=== PATIENT | female | born 1990 | race Caucasian/White ===

== ENCOUNTER → 2016-06-14 | Outpatient (REF) | payer MEDICARE, MEDICAID ==
[~2016-06-14] MED LIST: /QUET10TA OR; /RISPSOL3 OR; /THIA10TA OR; ABIL1TAB5 PO; ABIL5TAB5 PO; BEN1.4DI EX; BUPR15TA PO; CETI10TA PO; COGE1INJ PO; COLA100C2 OR; DEPA1TAB3 PO; DEPA250T32 PO; DEPA500T2 OR; FLON0.054; FOLI1TAB OR; IBUP-1114 PO; KLON0.5T PO; LATU40TA PO; MULTIVIT PO; No Historical Meds; PRIL20CA OR; PRIL40CA PO; SERO200T OR; VALP25EL OR
[2016-06-14 17:11] LABS: ALBUMIN 3.9 GM/DL (3.2-5.2); ALBUMIN/GLOBULIN RATIO 1.18 (1.00-1.93); ALKALINE PHOSPHATASE 81 U/L (45-117); ALT/SGPT 20 U/L (12-78); ANION GAP 7 MEQ/L (8-16); AST/SGOT 12 U/L (15-37); BILIRUBIN,TOTAL 0.4 MG/DL (0.2-1.0); BLOOD UREA NITROGEN 6 MG/DL (7-18); CALCIUM LEVEL 9.2 MG/DL (8.5-10.1); CARBON DIOXIDE LEVEL 29 MEQ/L (21-32); CHLORIDE LEVEL 103 MEQ/L (98-107); CREATININE FOR GFR 0.77 MG/DL (0.55-1.02); GLOMERULAR FILTRATION RATE > 60.0 (>60); GLUCOSE, FASTING 56 MG/DL (70-105); SODIUM LEVEL 139 MEQ/L (136-145); TOTAL PROTEIN 7.2 GM/DL (6.4-8.2)
== END ==
LOC: M SFHCCLAY 10:56
PROVIDERS: ATTEND Family Medicine
DX: E87.6 Hypokalemia (principal)

== ENCOUNTER 2016-07-20 20:27 | Emergency (ER) | payer MEDICAID, MEDICARE ==
[2016-07-20 23:38] LABS: MEAN CORPUSCULAR HEMOGLOBIN 30.9 pg (27.0-33.0); MEAN CORPUSCULAR HGB CONC 32.9 g/dl (32.0-36.5); RED CELL DISTRIBUTION WIDTH 12.7 % (11.5-14.5); WHITE BLOOD COUNT 11.9 K/mm3 (4.0-10.0)
[2016-07-20 23:51] LABS: CONTROL LINE HCG INT CTR LINE PRESENT
[2016-07-20 23:53] LABS: AMPHETAMINES LEVEL URINE POSITIVE (NEGATIVE); BENZODIAZEPINES URINE NEGATIVE (NEGATIVE); COCAINE METABOLITE URINE NEGATIVE (NEGATIVE); CONTROL LINE INT CTR LINE PRESENT; METHADONE URINE NEGATIVE (NEGATIVE); OPIATES URINE NEGATIVE (NEGATIVE); TRICYCLIC ANTIDEPRESS URINE NEGATIVE (NEGATIVE)
[2016-07-21 00:05] LABS: ALBUMIN 4.7 GM/DL (3.2-5.2); ALBUMIN/GLOBULIN RATIO 1.15 (1.00-1.93); ALKALINE PHOSPHATASE 110 U/L (45-117); ALT/SGPT 25 U/L (12-78); ANION GAP 9 MEQ/L (8-16); AST/SGOT 15 U/L (15-37); BILIRUBIN,DIRECT 0.1 MG/DL (0.0-0.2); BILIRUBIN,TOTAL 0.4 MG/DL (0.2-1.0); BLOOD UREA NITROGEN 8 MG/DL (7-18); CALCIUM LEVEL 9.4 MG/DL (8.5-10.1); CARBON DIOXIDE LEVEL 25 MEQ/L (21-32); CHLORIDE LEVEL 105 MEQ/L (98-107); CREATININE FOR GFR 0.93 MG/DL (0.55-1.02); GLOMERULAR FILTRATION RATE > 60.0 (>60); GLUCOSE, FASTING 75 MG/DL (70-105); POTASSIUM SERUM 3.8 MEQ/L (3.5-5.1); SODIUM LEVEL 139 MEQ/L (136-145); TOTAL PROTEIN 8.8 GM/DL (6.4-8.2)
[2016-07-21] MEDS ORDERED: lamoTRIgine 25 MG TAB As Ordered ONE (10:48)
[2016-07-21] MEDS ORDERED: OMEPRAZOLE 20 MG CAP As Ordered ONE (10:48)
[2016-07-21] MEDS ORDERED: buPROPion (WELLBUTRIN SR) 100 MG SR TAB PO ONE (11:00)
[2016-07-21] MEDS ORDERED: buPROPion **SR TABLET** (ZYBAN) 150MG PO ONE (11:00)
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
--- NOTE | 2016-07-21 14:17 | EDDOCDS ---
Physician Documentation [facility] Name: Soraya Jane Age: 25 yrs Sex: Female : 1990 Arrival Date: 07/20/2016 Time: 20:27 Bed OBSERVATION Private MD: Chris Suazo D Disposition: 07/21/16 11:11 Transfer ordered to [facility]. Diagnosis is Adjustment disorder with depressed mood. - Reason for transfer: Higher level of care. - Accepting physician is Dr. Abimael Marrero. - Condition is Stable. - Problem is chronic. - Symptoms are unchanged. Historical: - Allergies: no known allergies; - Home Meds: 1. Wellbutrin SR 150 mg Oral TbER 1 tab once daily 2. Wellbutrin SR 200 mg Oral TbER 1 tab daily 3. lamotrigine 100 mg Oral TbDL 1 tab once daily 4. Atarax 25 mg Oral tab 1 tab 1-2 as needed 5. Ativan Oral Unknown as needed (Last dose: 07/20/2016 20:30) 6. omeprazole 40 mg Oral cpDR 1 cap once daily - PMHx: GERD; PTSD; Bipolar disorder; - PSHx: back surgery; - Social history: Smoking status: Patient states was never smoker of tobacco. No barriers to communication noted, The patient speaks fluent Georgian, Speaks appropriately for age. - Family history: Not pertinent. - : The pt / caregiver states he / she is not on anticoagulants. Home medication list is obtained from the patient. - Exposure Risk Screening:: None identified. HOOKER MACHINE TENDER: 07/20 20:43 LMP 07/01/2016 ld5 Vital Signs: 20:36 BP 149 / 94; Pulse 90; Resp 18 S; Temp 98.5(O); Pulse Ox 100% on R/A; Weight 63.96 kg / gr2 141.01 lbs (R); Height 5 ft. 4 in. (162.56 cm) (R); Pain 2/10; 07/21 05:51 BP 126 / 82; Pulse 83; Resp 16; Temp 98.2(TE); Pulse Ox 99% on R/A; Pain 0/10; rw1 14:13 BP 144 / 81; Pulse 82; Resp 20; Temp 98.7(O); Pulse Ox 100% on R/A; Pain 3/10; dsf 07/20 20:36 Body Mass Index 24.20 (63.96 kg, 162.56 cm) gr2 MDM: 07/20 21:38 Financial registration complete. gjb 21:39 [facility] Payment Agreement was scanned into [employer] and attached to record. gjb 22:25 Consult PFS/PSA/Weathercaster ordered. le 22:25 Consult PFS/PSA/Weathercaster: Patient's case requires discussion with on-call le Psychiatrist ordered. 22:25 PSA/PFS to call Nursing Nuclear Medicine Tech, to enter patient data [place] if patient le involuntarily admitted or transferred for SI or HI ordered. 22:25 Confirm accurate psychiatric medication list and times of last dosage ordered. le 22:25 Detain Pt Until Medically/PFS Cleared ordered. le 22:26 Acetaminophen Level Ordered. EDMS 22:26 Basic Metabolic Profile Ordered. EDMS 22:26 Complete Blood Count Ordered. EDMS 22:26 Drug Eval Toxicology ED Only Ordered. EDMS 22:26 Ethyl Alcohol (ethanol) Ordered. EDMS 22:26 HCG,Serum Qualitative Ordered. EDMS 22:26 Liver Profile Ordered. EDMS 22:26 Salicylate Level Ordered. EDMS 22:26 Thyroid Stimulating Hormone Ordered. EDMS 07/21 00:44 Consult PFS/PSA/Weathercaster complete. jfb 00:44 Consult PFS/PSA/Weathercaster: Patient's case requires discussion with on-call [facility] Psychiatrist complete. 00:44 PSA/PFS to call Nursing Nuclear Medicine Tech, to enter [place] data [place] if patient jfb involuntarily admitted or transferred for SI or HI complete. 01:04 Acetaminophen Level Reviewed. mm11 01:04 Complete Blood Count Reviewed. mm11 01:04 Drug Eval Toxicology ED Only Reviewed. mm11 01:04 Liver Profile Reviewed. mm11 01:04 Salicylate Level Reviewed. mm11 01:04 Basic Metabolic Profile Reviewed. mm11 01:04 Ethyl Alcohol (ethanol) Reviewed. mm11 01:04 HCG,Serum Qualitative Reviewed. mm11 01:04 Thyroid Stimulating Hormone Reviewed. mm11 04:18 REGULAR DIET PLASTIC MARQUEZ+DIET ordered. EDMS 10:43 lamoTRIgine 100 mg PO once ordered. dsf 10:43 omeprazole Delayed Release Capsule 40 mg PO once; swallow whole (do not crush or chew) dsf OR open capsule, sprinkle contents over tablespoonful applesauce; swallow all immediately/do not chew pellets ordered. 10:46 buPROPion 200 mg PO once ordered. dsf 10:46 buPROPion 150 mg PO once ordered. dsf 12:57 REGULAR DIET PLASTIC MARQUEZ+DIET ordered. EDMS 14:11 [facility] Legal paperwork was scanned into [employer] and attached to record. mb10 Administered Medications: 10:53 Drug: lamoTRIgine 100 mg [lamotrigine 25 mg tablet (4 tabs)] Route: PO; dsf 10:53 Drug: omeprazole 40 mg [omeprazole 20 mg capsule,delayed release (2 caps)] Route: PO; dsf 11:08 Drug: buPROPion 200 mg [bupropion HCl 100 mg tablet (2 tabs)] Route: PO; dsf 11:08 Drug: buPROPion 150 mg [bupropion HCl 75 mg tablet (2 tabs)] Route: PO; dsf Signatures: Dispatcher What's More Alive Than You EDMS Jemal Sahni, DO mm11 Marisol Ivy, COUNCIL MEMBER Chiqui Jensen, PSA PSA jfb Yamile Emmanuel,RN RN temo5 Anjelica Fox,RN RN dsf Nehal Kaiser MD MD fg Beck, Gabriela gjb Beagle, Melissa mb10 The chart was reviewed and I authenticate all verbal orders and agree with the evaluation and treatment provided.Attachments: 07/20 21:39 [facility] Payment Agreement shelley MTDJorge
--- NOTE | 2016-07-23 15:17 | EDDOCDS ---
Physician Documentation [facility] Name: Soraya Jane Age: 25 yrs Sex: Female : 1990 Arrival Date: 07/20/2016 Time: 20:27 Bed OBSERVATION Private MD: Chris Suazo D Disposition: 07/21/16 11:11 Transfer ordered to [facility]. Diagnosis is Adjustment disorder with depressed mood. - Reason for transfer: Higher level of care. - Accepting physician is Dr. Abimael Marrero. - Condition is Stable. - Problem is chronic. - Symptoms are unchanged. Historical: - Allergies: no known allergies; - Home Meds: 1. Wellbutrin SR 150 mg Oral TbER 1 tab once daily 2. Wellbutrin SR 200 mg Oral TbER 1 tab daily 3. lamotrigine 100 mg Oral TbDL 1 tab once daily 4. Atarax 25 mg Oral tab 1 tab 1-2 as needed 5. Ativan Oral Unknown as needed (Last dose: 07/20/2016 20:30) 6. omeprazole 40 mg Oral cpDR 1 cap once daily - PMHx: GERD; PTSD; Bipolar disorder; - PSHx: back surgery; - Social history: Smoking status: Patient states was never smoker of tobacco. No barriers to communication noted, The patient speaks fluent Spanish, Speaks appropriately for age. - Family history: Not pertinent. - : The pt / caregiver states he / she is not on anticoagulants. Home medication list is obtained from the patient. - Exposure Risk Screening:: None identified. DIGITAL PUBLISHING SPECIALIST: 07/20 20:43 LMP 07/01/2016 ld5 Vital Signs: 20:36 BP 149 / 94; Pulse 90; Resp 18 S; Temp 98.5(O); Pulse Ox 100% on R/A; Weight 63.96 kg / gr2 141.01 lbs (R); Height 5 ft. 4 in. (162.56 cm) (R); Pain 2/10; 07/21 05:51 BP 126 / 82; Pulse 83; Resp 16; Temp 98.2(TE); Pulse Ox 99% on R/A; Pain 0/10; rw1 14:13 BP 144 / 81; Pulse 82; Resp 20; Temp 98.7(O); Pulse Ox 100% on R/A; Pain 3/10; dsf 07/20 20:36 Body Mass Index 24.20 (63.96 kg, 162.56 cm) gr2 MDM: 07/20 21:38 Financial registration complete. gjb 21:39 [facility] Payment Agreement was scanned into [employer] and attached to record. gjb 22:25 Consult PFS/PSA/General Labor ordered. le 22:25 Consult PFS/PSA/General Labor: Patient's case requires discussion with on-call le Psychiatrist ordered. 22:25 PSA/PFS to call Nursing It Professional, to enter [place] data [place] if patient le involuntarily admitted or transferred for SI or HI ordered. 22:25 Confirm accurate psychiatric medication list and times of last dosage ordered. le 22:25 Detain Pt Until Medically/PFS Cleared ordered. le 22:26 Acetaminophen Level Ordered. EDMS 22:26 Basic Metabolic Profile Ordered. EDMS 22:26 Complete Blood Count Ordered. EDMS 22:26 Drug Eval Toxicology ED Only Ordered. EDMS 22:26 Ethyl Alcohol (ethanol) Ordered. EDMS 22:26 HCG,Serum Qualitative Ordered. EDMS 22:26 Liver Profile Ordered. EDMS 22:26 Salicylate Level Ordered. EDMS 22:26 Thyroid Stimulating Hormone Ordered. EDMS 07/21 00:44 Consult PFS/PSA/General Labor complete. jfb 00:44 Consult PFS/PSA/General Labor: Patient's case requires discussion with on-call [facility] Psychiatrist complete. 00:44 PSA/PFS to call Nursing It Professional, to enter [place] if patient jfb involuntarily admitted or transferred for SI or HI complete. 01:04 Acetaminophen Level Reviewed. mm11 01:04 Complete Blood Count Reviewed. mm11 01:04 Drug Eval Toxicology ED Only Reviewed. mm11 01:04 Liver Profile Reviewed. mm11 01:04 Salicylate Level Reviewed. mm11 01:04 Basic Metabolic Profile Reviewed. mm11 01:04 Ethyl Alcohol (ethanol) Reviewed. mm11 01:04 HCG,Serum Qualitative Reviewed. mm11 01:04 Thyroid Stimulating Hormone Reviewed. mm11 04:18 REGULAR DIET PLASTIC MARQUEZ+DIET ordered. EDMS 10:43 lamoTRIgine 100 mg PO once ordered. dsf 10:43 omeprazole Delayed Release Capsule 40 mg PO once; swallow whole (do not crush or chew) dsf OR open capsule, sprinkle contents over tablespoonful applesauce; swallow all immediately/do not chew pellets ordered. 10:46 buPROPion 200 mg PO once ordered. dsf 10:46 buPROPion 150 mg PO once ordered. dsf 12:57 REGULAR DIET PLASTIC MARQUEZ+DIET ordered. EDMS 14:11 [facility] Legal paperwork was scanned into [employer] and attached to record. mb10 17:31 T-Sheet-- Draft Copy was scanned into [employer] and attached to record. klr Administered Medications: 10:53 Drug: lamoTRIgine 100 mg [lamotrigine 25 mg tablet (4 tabs)] Route: PO; dsf 10:53 Drug: omeprazole 40 mg [omeprazole 20 mg capsule,delayed release (2 caps)] Route: PO; dsf 11:08 Drug: buPROPion 200 mg [bupropion HCl 100 mg tablet (2 tabs)] Route: PO; dsf 11:08 Drug: buPROPion 150 mg [bupropion HCl 75 mg tablet (2 tabs)] Route: PO; dsf Signatures: Dispatcher [employer]Ceres EDMS Jemal Sahni, DO mm11 Marisol Ivy, BOILER ASSISTANT OPERATOR BOILER ASSISTANT OPERATORChiqui Kelly, PSA PSA sulemab Yamile Emmanuel RN RN Anjelica Garcias RN RN dsf Nehal Kaiser MD MD fg Beck, Gabriela gjb Beagle, Melissa mb10 Nikia Jacobsonr The chart was reviewed and I authenticate all verbal orders and agree with the evaluation and treatment provided.Attachments: 07/20 21:39 [facility] Payment Agreement [facility] 17:31 T-Sheet-- Draft Copy klr Chart [facility]
--- NOTE | 2016-07-23 15:17 | EDDOCDS ---
Physician Documentation [facility] Name: Soraya Jane Age: 25 yrs Sex: Female : 1990 Arrival Date: 07/20/2016 Time: 20:27 Bed OBSERVATION Private MD: Chris Suazo D Disposition: 07/21/16 11:11 Transfer ordered to [facility]. Diagnosis is Adjustment disorder with depressed mood. - Reason for transfer: Higher level of care. - Accepting physician is Dr. Abimael Marrero. - Condition is Stable. - Problem is chronic. - Symptoms are unchanged. Historical: - Allergies: no known allergies; - Home Meds: 1. Wellbutrin SR 150 mg Oral TbER 1 tab once daily 2. Wellbutrin SR 200 mg Oral TbER 1 tab daily 3. lamotrigine 100 mg Oral TbDL 1 tab once daily 4. Atarax 25 mg Oral tab 1 tab 1-2 as needed 5. Ativan Oral Unknown as needed (Last dose: 07/20/2016 20:30) 6. omeprazole 40 mg Oral cpDR 1 cap once daily - PMHx: GERD; PTSD; Bipolar disorder; - PSHx: back surgery; - Social history: Smoking status: Patient states was never smoker of tobacco. No barriers to communication noted, The patient speaks fluent German, Speaks appropriately for age. - Family history: Not pertinent. - : The pt / caregiver states he / she is not on anticoagulants. Home medication list is obtained from the patient. - Exposure Risk Screening:: None identified. 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 4 in. (162.56 cm) (R); Pain 2/10; 07/21 05:51 BP 126 / 82; Pulse 83; Resp 16; Temp 98.2(TE); Pulse Ox 99% on R/A; Pain 0/10; rw1 14:13 BP 144 / 81; Pulse 82; Resp 20; Temp 98.7(O); Pulse Ox 100% on R/A; Pain 3/10; dsf 07/20 20:36 Body Mass Index 24.20 (63.96 kg, 162.56 cm) gr2 MDM: 07/20 21:38 Financial registration complete. gjb 21:39 [facility] Payment Agreement was scanned into [employer] and attached to record. gjb 22:25 Consult PFS/PSA/Catering Driver ordered. le 22:25 Consult PFS/PSA/Catering Driver: Patient's case requires discussion with on-call le Psychiatrist ordered. 22:25 PSA/PFS to call Nursing Lace Roller Operator, to enter [place] data [place] if patient le involuntarily admitted or transferred for SI or HI ordered. 22:25 Confirm accurate psychiatric medication list and times of last dosage ordered. le 22:25 Detain Pt Until Medically/PFS Cleared ordered. le 22:26 Acetaminophen Level Ordered. EDMS 22:26 Basic Metabolic Profile Ordered. EDMS 22:26 Complete Blood Count Ordered. EDMS 22:26 Drug Eval Toxicology ED Only Ordered. EDMS 22:26 Ethyl Alcohol (ethanol) Ordered. EDMS 22:26 HCG,Serum Qualitative Ordered. EDMS 22:26 Liver Profile Ordered. EDMS 22:26 Salicylate Level Ordered. EDMS 22:26 Thyroid Stimulating Hormone Ordered. EDMS 07/21 00:44 Consult PFS/PSA/Catering Driver complete. jfb 00:44 Consult PFS/PSA/Catering Driver: Patient's case requires discussion with on-call [facility] Psychiatrist complete. 00:44 PSA/PFS to call Nursing Lace Roller Operator, to enter [place] if patient jfb involuntarily admitted or transferred for SI or HI complete. 01:04 Acetaminophen Level Reviewed. mm11 01:04 Complete Blood Count Reviewed. mm11 01:04 Drug Eval Toxicology ED Only Reviewed. mm11 01:04 Liver Profile Reviewed. mm11 01:04 Salicylate Level Reviewed. mm11 01:04 Basic Metabolic Profile Reviewed. mm11 01:04 Ethyl Alcohol (ethanol) Reviewed. mm11 01:04 HCG,Serum Qualitative Reviewed. mm11 01:04 Thyroid Stimulating Hormone Reviewed. mm11 04:18 REGULAR DIET PLASTIC MARQUEZ+DIET ordered. EDMS 10:43 lamoTRIgine 100 mg PO once ordered. dsf 10:43 omeprazole Delayed Release Capsule 40 mg PO once; swallow whole (do not crush or chew) dsf OR open capsule, sprinkle contents over tablespoonful applesauce; swallow all immediately/do not chew pellets ordered. 10:46 buPROPion 200 mg PO once ordered. dsf 10:46 buPROPion 150 mg PO once ordered. dsf 12:57 REGULAR DIET PLASTIC MARQUEZ+DIET ordered. EDMS 14:11 [facility] Legal paperwork was scanned into [employer] and attached to record. mb10 17:31 T-Sheet-- Draft Copy was scanned into [employer] and attached to record. klr Administered Medications: 10:53 Drug: lamoTRIgine 100 mg [lamotrigine 25 mg tablet (4 tabs)] Route: PO; dsf 10:53 Drug: omeprazole 40 mg [omeprazole 20 mg capsule,delayed release (2 caps)] Route: PO; dsf 11:08 Drug: buPROPion 200 mg [bupropion HCl 100 mg tablet (2 tabs)] Route: PO; dsf 11:08 Drug: buPROPion 150 mg [bupropion HCl 75 mg tablet (2 tabs)] Route: PO; dsf Signatures: Dispatcher [facility] EDMS Jemal Sahni, DO mm11 Marisol Ivy, FLASH DESIGNER FLASH DESIGNERChiqui Kelly, PSA PSA sulemab Yamile Emmanuel RN RN Anjelica Garcias RN RN dsf Nehal Kaiser MD MD fg Beck, Gabriela gjb Beagle, Melissa mb10 Nikia Jacobsonr The chart was reviewed and I authenticate all verbal orders and agree with the evaluation and treatment provided.Attachments: 07/20 21:39 [facility] Payment Agreement [facility] 17:31 T-Sheet-- Draft Copy klr Chart [facility]
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
== END 2016-07-21 14:16 ==
LOC: M ED 20:27
DX: F32.9 Major depressive disorder, single episode, unspecified (principal); F43.10 Post-traumatic stress disorder, unspecified; K21.9 Gastro-esophageal reflux disease without esophagitis; F19.21 Other psychoactive substance dependence, in remission
CPT/HCPCS: 36415; 80048; 80076; 80306; 84443; 84703; 85027; 99285; G0480

== ENCOUNTER 2016-08-15 17:51 | Emergency (ER) | payer MEDICARE ==
[~2016-08-15] VITALS: Ht 162.6 cm; Wt 64.0 kg
[2016-08-15 17:52] VITALS: BP 146/84
[2016-08-15] MEDS ORDERED: HYDR25T PO (18:11)
[2016-08-15] MEDS ORDERED: LAMO100T PO (18:11)
[2016-08-15] MEDS ORDERED: MONT10TA2 PO (18:11)
[2016-08-15] MEDS ORDERED: LITH300C PO (18:11)
[2016-08-15] MEDS ORDERED: POTA10TA2 (18:11)
[2016-08-15] MEDS ORDERED: BUPR1TAB17 PO (18:11)
[2016-08-15] MEDS ORDERED: VITA500T53 PO (18:11)
[2016-08-15] MEDS ORDERED: COLA100C PO (18:11)
[2016-08-15] MEDS ORDERED: OLAN15TA PO (18:11)
[2016-08-15 19:19] LABS: MEAN CORPUSCULAR HGB CONC 32.9 g/dl (32.0-36.5); MEAN CORPUSCULAR VOLUME 94.1 fl (80.0-96.0); RED CELL DISTRIBUTION WIDTH 12.2 % (11.5-14.5); WHITE BLOOD COUNT 9.4 K/mm3 (4.0-10.0)
[2016-08-15 19:21] LABS: CONTROL LINE HCG INT CTR LINE PRESENT
[2016-08-15 19:24] LABS: METHADONE URINE NEGATIVE (NEGATIVE)
[2016-08-15 19:40] LABS: ALBUMIN 4.1 GM/DL (3.2-5.2); ALBUMIN/GLOBULIN RATIO 1.14 (1.00-1.93); ALKALINE PHOSPHATASE 145 U/L (45-117); ALT/SGPT 79 U/L (12-78); ANION GAP 9 MEQ/L (8-16); AST/SGOT 46 U/L (15-37); BILIRUBIN,DIRECT < 0.1 MG/DL (0.0-0.2); BILIRUBIN,TOTAL 0.2 MG/DL (0.2-1.0); BLOOD UREA NITROGEN 14 MG/DL (7-18); CALCIUM LEVEL 9.7 MG/DL (8.5-10.1); CARBON DIOXIDE LEVEL 26 MEQ/L (21-32); CHLORIDE LEVEL 106 MEQ/L (98-107); CREATININE FOR GFR 1.06 MG/DL (0.55-1.02); GLOMERULAR FILTRATION RATE > 60.0 (>60); GLUCOSE, FASTING 98 MG/DL (70-105); POTASSIUM SERUM 4.2 MEQ/L (3.5-5.1); SODIUM LEVEL 141 MEQ/L (136-145); TOTAL PROTEIN 7.7 GM/DL (6.4-8.2)
[2016-08-15 19:44] LABS: LITHIUM LEVEL 0.38 MEQ/L (0.60-1.20)
[2016-08-16] MEDS ORDERED: FLUTISP (23:12)
[2016-08-16] MEDS ORDERED: OLAN7.5T PO (23:18)
[2016-08-16] MEDS ORDERED: HYDR-4274 PO (23:18)
[2016-08-16] MEDS ORDERED: OMEP20CA3 PO (23:20)
[2016-08-16] MEDS ORDERED: POTA10CA PO (23:20)
[2016-08-16] MEDS ORDERED: [UNRECOGNIZED DRUG - CODE] MT (23:26)
[2016-08-16] MEDS ORDERED: REFR0.5D8 OU (23:26)
== END 2016-08-15 20:20 | disposition home or self-care (01) ==
LOC: M ED 19:11
DX: F31.9 Bipolar disorder, unspecified (principal)

== ENCOUNTER 2016-08-16 19:45 | Inpatient (IN) | payer MEDICARE ==
[~2016-08-16] VITALS: Ht 162.6 cm; Wt 68.8 kg
[~2016-08-16 19:45] MED LIST changes: +BUPR1TAB17 PO; +COLA100C PO; +HYDR25T PO; +LAMO100T PO; +LITH300C PO; +MONT10TA2 PO; +OLAN15TA PO; +POTA10TA2; +VITA500T53 PO
[2016-08-16 21:07] LABS: MEAN CORPUSCULAR HEMOGLOBIN 31.4 pg (27.0-33.0); MEAN CORPUSCULAR HGB CONC 33.1 g/dl (32.0-36.5); MEAN CORPUSCULAR VOLUME 94.8 fl (80.0-96.0); RED CELL DISTRIBUTION WIDTH 12.4 % (11.5-14.5)
[2016-08-16 21:25] LABS: CONTROL LINE HCG INT CTR LINE PRESENT
[2016-08-16 21:31] LABS: METHADONE URINE NEGATIVE (NEGATIVE)
[2016-08-16 21:41] LABS: ALBUMIN 4.1 GM/DL (3.2-5.2); ALBUMIN/GLOBULIN RATIO 1.17 (1.00-1.93); ALKALINE PHOSPHATASE 137 U/L (45-117); ALT/SGPT 80 U/L (12-78); ANION GAP 7 MEQ/L (8-16); AST/SGOT 36 U/L (15-37); BILIRUBIN,DIRECT < 0.1 MG/DL (0.0-0.2); BILIRUBIN,TOTAL 0.3 MG/DL (0.2-1.0); BLOOD UREA NITROGEN 12 MG/DL (7-18); CALCIUM LEVEL 9.4 MG/DL (8.5-10.1); CARBON DIOXIDE LEVEL 29 MEQ/L (21-32); CHLORIDE LEVEL 106 MEQ/L (98-107); CREATININE FOR GFR 0.91 MG/DL (0.55-1.02); GLOMERULAR FILTRATION RATE > 60.0 (>60); GLUCOSE, FASTING 90 MG/DL (70-105); POTASSIUM SERUM 4.1 MEQ/L (3.5-5.1); SODIUM LEVEL 142 MEQ/L (136-145); TOTAL PROTEIN 7.6 GM/DL (6.4-8.2)
[2016-08-16 21:45] LABS: LITHIUM LEVEL 0.39 MEQ/L (0.60-1.20)
[2016-08-16] MEDS ORDERED: MAALOX 30 ML SUSP *UDC PO PRN (22:15)
[2016-08-16] MEDS ORDERED: MOM 30ML SUSPENSION UDC PO PRN (22:15)
[2016-08-16] MEDS ORDERED: FLUTISP (23:12)
[2016-08-16] MEDS ORDERED: HYDR-4274 PO (23:18)
[2016-08-16] MEDS ORDERED: OLAN7.5T PO (23:18)
[2016-08-16 23:20] VITALS: BP 112/58
[2016-08-16] MEDS ORDERED: POTA10CA PO (23:20)
[2016-08-16] MEDS ORDERED: OMEP20CA3 PO (23:20)
[2016-08-16] MEDS ORDERED: REFR0.5D8 OU (23:26)
[2016-08-16] MEDS ORDERED: [UNRECOGNIZED DRUG - CODE] MT (23:26)
[2016-08-17] MEDS: LORazepam 1 MG TAB PO PRN ×2 (01:07→14:09)
[2016-08-17 06:45] VITALS: BP 132/64
[2016-08-17] MEDS: NICOTINE 7 MG/24 HR TRANSDERMAL TD SCH (09:21)
[2016-08-17] MEDS ORDERED: HYDR25T PO (11:04)
[2016-08-17] MEDS ORDERED: ATIV1TAB7 PO (11:04)
[2016-08-17] MEDS ORDERED: POTA10TA16 PO (11:04)
[2016-08-17] MEDS: HALOPERIDOL 5 MG TAB PO PRN (12:00)
[2016-08-17] MEDS: diphenhydrAMINE 25 MG CAP PO PRN (12:00)
[2016-08-17] MEDS: ACETAMINOPHEN TAB 650MG DOSE (2X325MG) PO PRN ×2 (14:10→21:00)
[2016-08-17] MEDS: LITHIUM CARBONATE 450 MG **CR** TAB PO SCH (15:39)
[2016-08-17 18:00] VITALS: BP 127/77
[2016-08-17] MEDS ORDERED: CHLORASEPTIC SPRAY MT PRN (20:45)
[2016-08-17] MEDS: OLANZapine 2.5MG TABLET PO SCH (21:00)
[2016-08-17] MEDS ORDERED: QUEtiapine FUMARATE 200 MG TAB PO SCH (21:00)
[2016-08-18 06:46] VITALS: BP 111/66
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
[2016-08-18] MEDS: LITHIUM CARBONATE 450 MG **CR** TAB PO SCH (07:55)
[2016-08-18] MEDS: NICOTINE 7 MG/24 HR TRANSDERMAL TD SCH (07:55)
[2016-08-18] MEDS: HALOPERIDOL 5 MG TAB PO PRN (09:52)
[2016-08-18] MEDS: LORazepam 1 MG TAB PO PRN (09:53)
[2016-08-18] MEDS: ACETAMINOPHEN TAB 650MG DOSE (2X325MG) PO PRN (09:53)
[2016-08-18] MEDS: diphenhydrAMINE 25 MG CAP PO PRN (09:53)
[2016-08-18 18:00] VITALS: BP 110/58
[2016-08-18] MEDS: OLANZapine 2.5MG TABLET PO SCH (20:59)
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
[2016-08-19 06:41] VITALS: BP 115/60
[2016-08-19 07:23] LABS: ALBUMIN 3.6 GM/DL (3.2-5.2); ALKALINE PHOSPHATASE 107 U/L (45-117); ALT/SGPT 60 U/L (12-78); AST/SGOT 21 U/L (15-37); BILIRUBIN,DIRECT < 0.1 MG/DL (0.0-0.2); BILIRUBIN,TOTAL 0.3 MG/DL (0.2-1.0); T UPTAKE 31 % (30-39); THYROXINE (T4) 8.6 UG/DL (4.5-12.0); TOTAL PROTEIN 7.2 GM/DL (6.4-8.2)
--- NOTE | 2016-08-19 07:54 | HPE ---
DATE OF ADMISSION: 08/18/2016 HISTORY OF PRESENT ILLNESS: Please refer to psychiatric history and evaluation for further details on this admission. This examination and history is intended for medical issues, which may need treatment, followup or consultation on this 25-year-old female. ALLERGIES: BRILLIANT BLUE FCF, HYDROCODONE, LISDEXAMFETAMINE, RED DYE, TRAZODONE, YELLOW DYE. PRIMARY CARE PROVIDER: Dr. Suazo. SOCIAL HISTORY: She is from [place], resides in [facility] ([facility] She is single and does not smoke cigarettes, does not use recreational drugs, does not drink alcohol. PAST MEDICAL HISTORY: 1. History of Lyme disease. 2. Bipolar disorder. PAST SURGICAL HISTORY: Back surgery 2009. HOME MEDICATIONS: - bupropion 350 mg by mouth daily - vitamin D12 500 mcg by mouth daily - Colace 100 mg by mouth twice a day - fluticasone nasal spray, one spray each nostril daily - hydroxyzine 25 mg by mouth twice a day agitation, anxiety - Lamictal 100 mg by mouth twice a day - lithium 600 mg by mouth twice a day - Ativan 1 mg by mouth four times a day as needed agitation - Singulair 10 mg by mouth daily - olanzapine 7.5 mg by mouth nightly - omeprazole 20 mg by mouth daily - potassium chloride 10 mEq by mouth daily LABORATORY STUDIES: WBC 11.0, hemoglobin 11.9, hematocrit 36.1, platelets 469, electrolytes were normal. BUN 12, creatinine 0.9. AST 86, ALT slightly elevated at 80. TSH 4.75. TOXICOLOGY: [place] was 0.39, otherwise negative. REVIEW OF SYSTEMS: Ten system review was done and was unremarkable. The patient had no complaints. Review of systems was done without complications. PHYSICAL EXAMINATION: 25-year-old cooperative female in no acute distress. VITAL SIGNS: Height 64 inches, weight 67 kg, body maximum index (BMI) 25.4. Blood pressure 112/58, pulse 78, respirations 16, temperature 98.6. GENERAL: The patient is alert and oriented times three. HEENT: Pupils equal, round, reactive to light. Extraocular muscles intact. Cornea and sclerae clear. Conjunctiva is normal. No facial asymmetry. Pharynx, tongue and gum is pink and moist. Tongue is midline. NECK: Neck is supple without lymphadenopathy. No thyromegaly. No goiter. CHEST: Clear to auscultation without wheeze or retraction. HEART: Heart is regular. ABDOMEN: Benign. Bowel sounds positive. GENITOURINARY ()/RECTAL: Not done. EXTREMITIES: Equal strength with full range of motion. No clubbing, cyanosis, and edema. Peripheral pulses are equal and palpable bilaterally. SKIN: Warm and dry. ASSESSMENT AND PLAN: 1. Psychiatric plan per psychiatry. 2. Elevated liver function tests, repeat in morning to insure they are decreasing, monitor. 3. Elevated TSH. Will get a thyroid profile in the morning. 4. No acute medical issues.
[2016-08-19] MEDS: NICOTINE 7 MG/24 HR TRANSDERMAL TD SCH ×2 (09:00→10:15)
[2016-08-19] MEDS: LITHIUM CARBONATE 450 MG **CR** TAB PO SCH (09:41)
[2016-08-19] MEDS: IBUPROFEN 600 MG TAB PO PRN ×2 (10:18→17:10)
[2016-08-19] MEDS: LORazepam 1 MG TAB PO PRN (10:20)
[2016-08-19 18:00] VITALS: BP 119/71
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
[2016-08-19] MEDS: OLANZapine 2.5MG TABLET PO SCH (20:35)
[2016-08-20] MEDS: IBUPROFEN 600 MG TAB PO PRN (06:25)
[2016-08-20 06:34] VITALS: BP 132/70
[2016-08-20] MEDS: LITHIUM CARBONATE 450 MG **CR** TAB PO SCH (08:31)
[2016-08-20] MEDS: NICOTINE 7 MG/24 HR TRANSDERMAL TD SCH (08:31)
[2016-08-20] MEDS: LORazepam 1 MG TAB PO PRN (08:31)
[2016-08-20] MEDS: ACETAMINOPHEN TAB 650MG DOSE (2X325MG) PO PRN (08:32)
[2016-08-20] MEDS ORDERED: OLAN2.5T PO (11:02)
[2016-08-20] MEDS ORDERED: LITH45TASA PO (11:02)
[2016-08-20] MEDS ORDERED: NICO7PA TD (11:06)
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
== END 2016-08-20 11:30 | disposition home or self-care (01) | DRG 885 ==
LOC: M ED 20:32 → M ED INP 22:15 → M PSY 23:20
PROVIDERS: ADMIT Psychiatry & Neurology Child & Adolescent Psychiatry; ATTEND Internal Medicine Addiction Medicine
DX: F31.9 Bipolar disorder, unspecified (principal); F43.10 Post-traumatic stress disorder, unspecified; Z79.899 Other long term (current) drug therapy; Z88.8 Allergy status to other drugs, medicaments and biological substances; Z88.5 Allergy status to narcotic agent

== ENCOUNTER 2016-08-30 19:44 | Emergency (ER) | payer MEDICARE ==
[~2016-08-30] VITALS: Ht 162.6 cm; Wt 68.0 kg
[~2016-08-30 19:44] MED LIST changes: +ATIV1TAB7 PO; -COLA100C PO; +COLA100C3 PO; +FLUTISP; +HYDR-4274 PO; +LITH45TASA PO; +NICO7PA TD; +OLAN2.5T PO; +OLAN7.5T PO; +OMEP20CA3 PO; +POTA10CA PO; +POTA10TA16 PO; -POTA10TA2; +POTA1TAB23; +REFR0.5D8 OU; +[UNRECOGNIZED DRUG - CODE] MT
[2016-08-30 22:43] VITALS: BP 148/76
== END 2016-08-30 22:46 | disposition home or self-care (01) ==
LOC: EDBD 19:44 → M ED 21:02
DX: F31.32 Bipolar disorder, current episode depressed, moderate (principal); F43.10 Post-traumatic stress disorder, unspecified; F41.9 Anxiety disorder, unspecified; M54.9 Dorsalgia, unspecified; F17.210 Nicotine dependence, cigarettes, uncomplicated; Z79.899 Other long term (current) drug therapy

== ENCOUNTER 2016-09-07 17:24 | Inpatient (IN) | payer MEDICARE ==
[~2016-09-07] VITALS: Ht 162.6 cm; Wt 72.2 kg
[2016-09-07 19:21] LABS: MEAN CORPUSCULAR HEMOGLOBIN 30.9 pg (27.0-33.0); MEAN CORPUSCULAR HGB CONC 32.4 g/dl (32.0-36.5); MEAN CORPUSCULAR VOLUME 95.4 fl (80.0-96.0); RED CELL DISTRIBUTION WIDTH 12.3 % (11.5-14.5); WHITE BLOOD COUNT 16.3 K/mm3 (4.0-10.0)
[2016-09-07 19:35] LABS: CONTROL LINE HCG INT CTR LINE PRESENT
[2016-09-07 19:40] LABS: METHADONE URINE NEGATIVE (NEGATIVE)
[2016-09-07 19:51] LABS: ALKALINE PHOSPHATASE 104 U/L (45-117); ALT/SGPT 21 U/L (12-78); ANION GAP 8 MEQ/L (8-16); AST/SGOT 19 U/L (15-37); BILIRUBIN,DIRECT < 0.1 MG/DL (0.0-0.2); BILIRUBIN,TOTAL 0.1 MG/DL (0.2-1.0); BLOOD UREA NITROGEN 17 MG/DL (7-18); CALCIUM LEVEL 9.6 MG/DL (8.5-10.1); CARBON DIOXIDE LEVEL 30 MEQ/L (21-32); CHLORIDE LEVEL 102 MEQ/L (98-107); CREATININE FOR GFR 0.96 MG/DL (0.55-1.02); GLOMERULAR FILTRATION RATE > 60.0 (>60); GLUCOSE, FASTING 69 MG/DL (70-105); POTASSIUM SERUM 4.3 MEQ/L (3.5-5.1); SODIUM LEVEL 140 MEQ/L (136-145)
[2016-09-07] MEDS ORDERED: LITH45TASA PO (20:30)
[2016-09-07] MEDS ORDERED: OLAN7.5T PO (20:30)
[2016-09-07] MEDS ORDERED: POLYVINYL ALCOHOL OPHTH SOLN 15 ML(LIQUITEARS) OU PRN (21:45)
[2016-09-07] MEDS: hydrOXYzine 25 MG TAB PO SCH (22:48)
[2016-09-07] MEDS: OLANZapine 2.5MG TABLET PO SCH (22:49)
[2016-09-08 01:18] VITALS: BP 131/74
[2016-09-08 06:29] VITALS: BP 121/62
[2016-09-08] MEDS: NICOTINE 21MG/24HR 1 EA TRANSDERMAL TD SCH (09:00)
[2016-09-08] MEDS: hydrOXYzine 25 MG TAB PO SCH ×2 (09:00→21:24)
[2016-09-08] MEDS: OMEPRAZOLE 20 MG CAP PO SCH (09:46)
[2016-09-08] MEDS: MONTELUKAST 10 MG TAB PO SCH (09:46)
[2016-09-08] MEDS: CYANOCOBALAMIN 500 MCG TAB PO SCH (09:46)
[2016-09-08] MEDS: LITHIUM CARBONATE 450 MG **CR** TAB PO SCH (09:46)
[2016-09-08] MEDS: FLUTICASONE PROP 0.05% NASAL SPRAY 16 GM (FLONASE) SCH (09:48)
[2016-09-08 18:00] VITALS: BP 94/58
[2016-09-08] MEDS: OLANZapine 2.5MG TABLET PO SCH (21:00)
--- NOTE | 2016-09-09 03:27 | HPE ---
DATE OF ADMISSION: 09/07/2016 HISTORY OF PRESENT ILLNESS: Please refer to psychiatric history and evaluation for further details on this admission. This examination and history is intended for medical issues, which may need treatment, followup or consult on this 25-year-old female. First attempt was made upon admission. She refused. She was agreeable today and was completed. ALLERGIES: 1. BRILLIANT BLUE FCF. 2. HYDROCODONE. 3. LISDEXAMFETAMINE. 4. RED DYE. 5. TRAZODONE. 6. YELLOW DYE. PRIMARY CARE PROVIDER: Currently Dr. Suazo. SOCIAL HISTORY: Lives in [place]. She is single. She smokes 1/3 pack of cigarettes per day. She does not use recreational drugs. She states she drinks alcohol about once a month. PAST MEDICAL HISTORY: 1. History of Lyme disease. 2. History of gastroesophageal reflux disease (GERD). 3. History of bipolar disease. PAST SURGICAL HISTORY: Back surgery 2009. She had L1-T12 fusion with kyphoplasty 2009. Removal of hardware 2010. LABORATORY STUDIES: WBC 16.3, hemoglobin 13.3, hematocrit 41, platelets 600. Electrolytes were normal. BUN 17, creatinine 0.96. AST 19, ALT 21. Toxicology screen was negative. CURRENT MEDICATIONS: - vitamin B12 500 mcg by mouth daily - fluticasone nasal spray one spray each nostril daily - hydroxyzine 25 mg by mouth twice a day as needed for anxiety, agitation - lithium ER 450 mg by mouth daily - Singulair 10 mg by mouth daily - olanzapine 7.5 mg by mouth nightly - omeprazole 20 mg by mouth daily - Refresh eye drops daily as needed for dry eyes REVIEW OF SYSTEMS: 10-system review was done. Patient had numerous complaints. She had no complaints of blurred or double vision. No fever. No chills. No tinnitus. No hoarseness. No difficulty swallowing. She has had lightheadedness. States she has had fainting spells. States she has headaches. States she had a fainting spell today, but was in her room, did not tell anybody. She was advised that she needs to let staff know immediately. Breasts: No masses. Cardiovascular: No complaints of chest pain, shortness of breath, palpitations or edema. Respiratory: No chronic cough, no sputum production. No hemoptysis. No orthopnea. No wheeze. Gastrointestinal (GI): She states she has had anorexia. Has lack of appetite. No hematochezia. No melena. No nausea, vomiting or diarrhea. No complaints of abdominal pain. Genitourinary (): No hematuria, dysuria or frequency. Musculoskeletal: She states she has had joint aches in all of her joints. No joint redness or swelling. Endocrine: No polyuria, polydipsia or polyphagia. Hematological: No history of anemia. Neurological: No seizures. Psychological: See psychiatric history of present illness (HPI). PHYSICAL EXAMINATION: 25-year-old cooperative female in no acute distress. Height 64 inches, weight 66 kg, body mass index (BMI) 25.0. Blood pressure 121/62, pulse 80, respirations 18, temperature 98.3. The patient is alert and oriented times three. Pupils equal and react to light. Extraocular muscles intact. Cornea and sclerae clear. Conjunctivae were normal. No facial asymmetry. Pharynx, tongue and gums pink and moist. Tongue is midline. Neck is supple without lymphadenopathy. No thyromegaly, no goiter. Carotids 2+ without bruit. Chest clear to auscultation without wheeze or retraction. Heart is regular without murmur or gallop. Abdomen is benign. Bowel sounds positive. Genitourinary/rectal: Not done. Extremities: Show equal strength, full range of motion. No cyanosis, clubbing or edema. Peripheral pulses are equal and palpable bilaterally. Negative Romberg. Gait steady. Skin is warm and dry. IMPRESSION/PLAN: 1. Psychiatric plan per psychiatry. 2. History of Lyme disease. Currently complaining of joint pain, headaches, lightheadedness. States she has had "fainting spells." Will get a vitamin B12 level, vitamin D level, Lyme titer, IgG, IgM, RA factor, thyroid-stimulating hormone (TSH), free T4. Look at an MRI of the brain.
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
[2016-09-09 06:39] VITALS: BP 123/80
[2016-09-09] MEDS: NICOTINE 21MG/24HR 1 EA TRANSDERMAL TD SCH (06:49)
[2016-09-09 07:29] LABS: BASO # 0.1 K/mm3 (0.0-0.2); EOS # 0.7 K/mm3 (0.0-0.50); EOS % 7.1 % (0.0-3.0); LARGE UNSTAINED CELL # 0.3 K/mm3 (0.0-0.4); LARGE UNSTAINED CELL % 2.8 % (0.0-4.0); LYMPH # 3.8 K/mm3 (1.5-6.5); LYMPH % 37.6 % (24.0-44.0); MEAN CORPUSCULAR HEMOGLOBIN 31.2 pg (27.0-33.0); MEAN CORPUSCULAR HGB CONC 33.4 g/dl (32.0-36.5); MEAN CORPUSCULAR VOLUME 93.5 fl (80.0-96.0); MONO # 0.7 K/mm3 (0.0-0.8); MONO % 7.3 % (0.0-5.0); NEUTROPHILS # 4.2 K/mm3 (1.8-7.7); NEUTROPHILS % 44.2 % (36.0-66.0); PLATELET COUNT, AUTOMATED 502 k/mm3 (150-450); RED CELL DISTRIBUTION WIDTH 12.1 % (11.5-14.5); WHITE BLOOD COUNT 9.5 K/mm3 (4.0-10.0)
[2016-09-09] MEDS: FLUTICASONE PROP 0.05% NASAL SPRAY 16 GM (FLONASE) SCH (07:49)
[2016-09-09] MEDS: LITHIUM CARBONATE 450 MG **CR** TAB PO SCH (07:49)
[2016-09-09] MEDS: CYANOCOBALAMIN 500 MCG TAB PO SCH (07:49)
[2016-09-09] MEDS: OMEPRAZOLE 20 MG CAP PO SCH (07:49)
[2016-09-09] MEDS: hydrOXYzine 25 MG TAB PO SCH ×2 (07:49→20:50)
[2016-09-09] MEDS: MONTELUKAST 10 MG TAB PO SCH (07:49)
[2016-09-09 08:00] LABS: ALBUMIN 3.3 GM/DL (3.2-5.2); ALBUMIN/GLOBULIN RATIO 0.97 (1.00-1.93); ALKALINE PHOSPHATASE 106 U/L (45-117); ALT/SGPT 17 U/L (12-78); ANION GAP 6 MEQ/L (8-16); AST/SGOT 9 U/L (15-37); BILIRUBIN,TOTAL 0.2 MG/DL (0.2-1.0); BLOOD UREA NITROGEN 13 MG/DL (7-18); CALCIUM LEVEL 9.2 MG/DL (8.5-10.1); CARBON DIOXIDE LEVEL 32 MEQ/L (21-32); CHLORIDE LEVEL 102 MEQ/L (98-107); GLOMERULAR FILTRATION RATE > 60.0 (>60); GLUCOSE, FASTING 107 MG/DL (70-105); POTASSIUM SERUM 4.1 MEQ/L (3.5-5.1); SODIUM LEVEL 140 MEQ/L (136-145); TOTAL PROTEIN 6.7 GM/DL (6.4-8.2)
[2016-09-09 08:07] LABS: FREE T4 1.13 NG/DL (0.76-1.46)
[2016-09-09] MEDS: ACETAMINOPHEN TAB 650MG DOSE (2X325MG) PO PRN (12:39)
[2016-09-09] MEDS ORDERED: OLANZapine 5 MG TAB PO PRN (15:30)
[2016-09-09] MEDS: MAALOX 30 ML SUSP *UDC PO PRN (15:44)
[2016-09-09 15:57] LABS: CONTROL LINE UCG INT CTR LINE PRESENT
--- NOTE | 2016-09-09 16:44 | IPNPDOC ---
[facility] Progress Note Progress Note DATE OF SERVICE: 09/09/16 INTERVAL HISTORY: Medication Side effects: Reports continual pollens from lithium including dizziness and "seizures" she reports the Zyprexa last night had made her excessively sleepy today and in general has highly sedating properties. Behavior: She is been accelerated and at times irritable but has not been coded or expressed any outrageous behavior Group Attendance: Attended process groups and was noted to make good use of the therapeutic milieu Psychiatric Symptom change: She describes that her irritability and accelerated mood continued to cause her disruption. She describes that the suicidal thoughts that she hadn't had prior to admission had resolved. She stated that she still has difficulties eating and sleeping regularly without medications. VITAL SIGNS: See below. NEW TEST RESULTS: See below CURRENT MEDICATIONS: See below. MENTAL STATUS EXAMINATION: General: Well dressed with good hygiene Speech: Pressured and rapid Thought processes: Generally coherent Thought content: Perseveration on the belief that she is Abstract reasoning, and computation: [place] thoughts Description of associations: loosened Description of abnormal or psychotic thoughts:Denies any suicidal or homicidal ideation. Denies any auditory or visual hallucinations. Does not appear to be responding to internal stimuli. She does appear to be endorsing some bizarre thoughts that she is . Judgment: Poor Insight: Poor Orientation: Alert and orientated 3 Recent and remote memory: Intact Attention span and concentration: Intact Fund of knowledge: Adequate Mood: "Okay" Affect: Elevated and expansive DIAGNOSES: 1. Bipolar disorder type I, current episode manic. 2. PTSD, chronic 3. High expressed emotional environment ASSESSMENT: The patient still appears to be having difficulties maintaining compliance as an outpatient with her medications and has decompensated several times in a short haired of time over the past few months. She is amenable to starting monotherapy with paliperidone with hopes that she would try a long- acting Depo MANAGEMENT PLAN: Medications: Discontinue Zyprexa and lithium, start 3 mg a paliperidone tomorrow morning packet given to patient about long-acting Depo will continue with when necessary Zyprexa 5 mg every 6 hours when necessary agitation or anxiety Psychotherapy: Encourage groups Social: Will see about connecting to outpatient case management to determine possible disposition options Misc: Patient can have ibuprofen 400 mg every 6 hours when necessary for migraines as the lithium has been discontinued and she only received 1 dose of 300 mg of lithium in the last month. She additionally can be allowed to have her watch, floor pad in bedroom and MP3 player Disposition: The patient will need of further inpatient stay to address her distorted and current manic state in which she poses a danger to herself and others. TIME SPENT: 25 minutes. Vital Signs Vital Signs Date Time Temp Pulse Resp B/P Pulse Ox O2 Delivery O2 Flow Rate FiO2 09/09/16 06:39 98.1 86 18 123/80 09/07/16 22:30 99 09/07/16 17:25 Room Air Laboratory Data 24H Labs Laboratory Tests 2 09/09/16 06:58: Blood Urea Nitrogen 13, Creatinine 0.90, Sodium Level 140, Potassium Level 4.1, Chloride Level 102, Carbon Dioxide Level 32, Calcium Level 9.2, Aspartate Amino Transf (AST/SGOT) 9L, Alanine Aminotransferase (ALT/SGPT) 17, Alkaline Phosphatase 106, Total Bilirubin 0.2#, Total Protein 6.7, Albumin 3.3, Albumin/ Globulin Ratio 0.97L, Anion Gap 6L, White Blood Count 9.5, Red Blood Count 3.77L , Hemoglobin 11.8L, Hematocrit 35.3L, Mean Corpuscular Volume 93.5, Mean Corpuscular Hemoglobin 31.2, Mean Corpuscular Hemoglobin Concent 33.4, Red Cell Distribution Width 12.1, Platelet Count 502H, Neutrophils (%) (Auto) 44.2, Lymphocytes (%) (Auto) 37.6, Monocytes (%) (Auto) 7.3H, Eosinophils (%) (Auto) 7.1H, Basophils (%) (Auto) 1.0, Neutrophils # (Auto) 4.2, Lymphocytes # (Auto) 3.8, Monocytes # (Auto) 0.7, Eosinophils # (Auto) 0.7H, Basophils # (Auto) 0.1, Free Thyroxine 1.13, Glomerular Filtration Rate > 60.0, Large Unclassified Cells # 0.3, Large Unclassified Cells % 2.8, Rheumatoid Factor < 10.0, Thyroid Stimulating Hormone (TSH) 1.340, Vitamin B12 Level 559 09/09/16 15:27: Urine Test NEGATIVE CBC/BMP Laboratory Tests 09/09/16 06:58 Calcium Level 9.2, Aspartate Amino Transf (AST/SGOT) 9 L, Alanine Aminotransferase (ALT/SGPT) 17, Alkaline Phosphatase 106, Total Bilirubin 0.2 # , Total Protein 6.7, Albumin 3.3, Red Blood Count 3.77 L, Mean Corpuscular Volume 93.5, Mean Corpuscular Hemoglobin 31.2, Mean Corpuscular Hemoglobin Concent 33.4, Red Cell Distribution Width 12.1, Neutrophils (%) (Auto) 44.2, Lymphocytes (%) (Auto) 37.6, Monocytes (%) (Auto) 7.3 H, Eosinophils (%) (Auto) 7.1 H, Basophils (%) (Auto) 1.0, Neutrophils # (Auto) 4.2, Lymphocytes # (Auto) 3.8, Monocytes # (Auto) 0.7, Eosinophils # (Auto) 0.7 H, Basophils # (Auto) 0.1 Current Medications Current Medications Acetaminophen (Tylenol Tab) 650 mg Q6HP PRN PO HEADACHE or DISCOMFORT Last administered on 09/09/16 12:39; Start 09/07/16 at 21:45; Stop 10/07/16 at 21:44 Al Hydrox/Mg Hydrox/Simethicone (Mylanta) 30 ml Q4HP PRN PO HEARTBURN/ INDIGESTION Last administered on 09/09/16 15:44; Start 09/07/16 at 21:45; Stop 10/07/16 at 21:44 Artificial Tears ([place] Tears) 2 drop DAILYPRN PRN OU DRY EYES; Start 09/07/16 at 21:45; Stop 10/07/16 at 21:44 Cyanocobalamin (Vitamin B12) 500 mcg DAILY PO Last administered on 09/09/16 07 :49; Start 09/08/16 at 09:00; Stop 10/08/16 at 08:59 Fluticasone Propionate (Flonase 0.05% Nasal [place]) 1 SPRAY IN EACH NOSTRIL DAILY NA Last administered on 09/09/16 07:49; Start 09/08/16 at 09:00; Stop 10/08/16 at 08:59 Home Med (Med Rec Complete!) ASDIRECTED XX ; Start 09/07/16 at 20:45; Stop at 20:59; Status DC Hydroxyzine HCl (Atarax) 25 mg BID PO Last administered on 09/09/16 07:49; Start 09/07/16 at 21:00; Stop 10/07/16 at 20:59 Ibuprofen (Advil) 400 mg Q6HP PRN PO PAIN; Start 09/09/16 at 15:30; Stop at 15:29 [place] Carbonate (Eskalith-Cr) 450 mg DAILY PO Last administered on 09/09/16 07:49; Start 09/08/16 at 09:00; Stop 09/09/16 at 15:17; Status DC Magnesium Hydroxide (Milk Of Magnesia) 30 ml DAILYPRN PRN PO CONSTIPATION; Start 09/07/16 at 21:45; Stop 10/07/16 at 21:44 Montelukast Sodium (Singulair) 10 mg DAILY PO Last administered on 09/09/16 07 :49; Start 09/08/16 at 09:00; Stop 10/08/16 at 08:59 Nicotine (Nicoderm Cq 21mg) 1 patch DAILY TD Last administered on 09/09/16 06: 49; Start 09/08/16 at 09:00; Stop 10/08/16 at 08:59 Olanzapine (ZyPREXA) 5 mg QHS PRN PO ANXIETY/AGITATION; Start 09/09/16 at 15:30 ; Stop 10/09/16 at 15:29 Olanzapine (ZyPREXA) 7.5 mg QHS PO Last administered on 09/07/16 22:49; Start 09/07/16 at 21:00; Stop 09/09/16 at 15:24; Status DC Omeprazole (PriLOSEC) 20 mg DAILY PO Last administered on 09/09/16 07:49; Start 09/08/16 at 09:00; Stop 10/08/16 at 08:59 Paliperidone (Invega) 3 mg QAM PO ; Start 09/09/16 at 09:00; Stop 10/09/16 at 08 :59 Allergies Coded Allergies: Hydrocodone (Verified Allergy, Unknown, 09/07/16) Trazodone (Unverified Allergy, Unknown, "numbness all over", 09/07/16) From report by Dr. Gabriele Pizarro [facility] (Verified Adverse Reaction, Unknown, 09/07/16) HALLUCINATIONS Lisdexamfetamine (Verified Adverse Reaction, Unknown, 09/07/16) HALLUCINATIONS Red Dye (Verified Adverse Reaction, Unknown, 09/07/16) HALLUCINATIONS Yellow Dye (Verified Adverse Reaction, Unknown, 09/07/16) HALLUCINATIONS GME ATTESTATION My preceptor for this patient encounter was physically present in the building during the encounter and was fully available. As needed, all aspects of the patient interview, examination, medical decision making process, and medical care plan development were reviewed and approved by the preceptor. Preceptor is aware and concurs with the plan as stated in the body of this note and will attest to such by his/her cosignature. CORNELIO SHARMA DO Sep 09, 2016 16:44
[2016-09-09] MEDS: IBUPROFEN 400 MG TAB PO PRN ×2 (16:55→23:35)
[2016-09-09] MEDS: PALIPERIDONE 3 MG ER TAB (INVEGA) PO SCH (16:55)
[2016-09-09 18:00] VITALS: BP 121/73
[2016-09-10 06:15] VITALS: BP 141/78
[2016-09-10] MEDS: MAALOX 30 ML SUSP *UDC PO PRN (07:32)
[2016-09-10] MEDS: NICOTINE 21MG/24HR 1 EA TRANSDERMAL TD SCH (09:02)
[2016-09-10] MEDS: OMEPRAZOLE 20 MG CAP PO SCH (09:02)
[2016-09-10] MEDS: CYANOCOBALAMIN 500 MCG TAB PO SCH (09:02)
[2016-09-10] MEDS: hydrOXYzine 25 MG TAB PO SCH ×2 (09:02→20:50)
[2016-09-10] MEDS: FLUTICASONE PROP 0.05% NASAL SPRAY 16 GM (FLONASE) SCH (09:03)
[2016-09-10] MEDS: PALIPERIDONE 3 MG ER TAB (INVEGA) PO SCH (09:03)
[2016-09-10] MEDS: MONTELUKAST 10 MG TAB PO SCH (09:03)
[2016-09-10] MEDS: IBUPROFEN 400 MG TAB PO PRN ×2 (09:04→17:05)
--- NOTE | 2016-09-10 16:28 | IPNPDOC ---
[facility] Progress Note Progress Note DATE OF SERVICE: 09/10/16 INTERVAL HISTORY: Medication Side effects: The patient reports some dizziness and fatigue from her olanzapine and she taken last night. She does not attribute any side effects currently to the start of paliperidone. Behavior: Somewhat irritable but able to be redirected Group Attendance: Attends groups fairly frequently Psychiatric Symptom change: Reported increase in irritability and rapid speech. She reports that she is having difficulty sleeping and feels fatigued currently. Staff report additionally the patient is somewhat more unusual and bizarre than yesterday. VITAL SIGNS: See below. NEW TEST RESULTS: See below CURRENT MEDICATIONS: See below. MENTAL STATUS EXAMINATION: General: Well-dressed and well-groomed with good eye contact Speech: Somewhat rapid and pressured Thought processes: Coherent although some circumstantiality appreciated Thought content: Perseveration on medications Abstract reasoning, and computation: Mildly impaired with concrete thinking Description of associations: Loosened Description of abnormal or psychotic thoughts: Makes no threats towards herself or others. Does not appear to be responding to internal stimuli. Judgment: Poor Insight: Poor Orientation: Alert and orientated 3 Recent and remote memory: Intact Attention span and concentration: Mildly impaired Fund of knowledge: Adequate Mood: "Fine" Affect: Elevated and expansive DIAGNOSES: 1. Bipolar disorder1, current episode mixed. 2. PTSD, chronic. 3. Borderline personality traits. ASSESSMENT: Having naturally anticipated decompensation during medication switch MANAGEMENT PLAN: Medications: Continue Invega 3 mg daily discontinue olanzapine at patient's request and start Rozerem 8 mg daily at bedtime for insomnia as hospital does not offer generic melatonin. She additionally has failed multiple trials of trazodone, hydroxyzine and number of other sleep aids. Psychotherapy: Encourage group attendance Social: Continuing to search out housing disposition options Misc: None Disposition: The patient will need of further inpatient stay to address her distorted and mixed bipolar state that poses fear danger to herself or others. TIME SPENT: 15 minutes. Vital Signs Vital Signs Date Time Temp Pulse Resp B/P Pulse Ox O2 Delivery O2 Flow Rate FiO2 09/10/16 06:15 98.1 96 20 141/78 09/07/16 22:30 99 09/07/16 17:25 Room Air Current Medications Current Medications Acetaminophen (Tylenol Tab) 650 mg Q6HP PRN PO HEADACHE or DISCOMFORT Last administered on 09/09/16t 12:39; Start 09/07/16 at 21:45; Stop 10/07/16 at 21:44 Al Hydrox/Mg Hydrox/Simethicone (Mylanta) 30 ml Q4HP PRN PO HEARTBURN/ INDIGESTION Last administered on 09/10/16 07:32; Start 09/07/16 at 21:45; Stop 10/07/16 at 21:44 Artificial Tears ([place]wa Tears) 2 drop DAILYPRN PRN OU DRY EYES; Start 09/07/16 at 21:45; Stop 10/07/16 at 21:44 Cyanocobalamin (Vitamin B12) 500 mcg DAILY PO Last administered on 09/10/16 09 :02; Start 09/08/16 at 09:00; Stop 10/08/16 at 08:59 Fluticasone Propionate (Flonase 0.05% Nasal [place]) 1 SPRAY IN EACH NOSTRIL DAILY NA Last administered on 09/10/16 09:03; Start 09/08/16 at 09:00; Stop 10/08/16 at 08:59 Home Med (Med Rec Complete!) ASDIRECTED XX ; Start 09/07/16 at 20:45; Stop at 20:59; Status DC Hydroxyzine HCl (Atarax) 25 mg BID PO Last administered on 09/10/16 09:02; Start 09/07/16 at 21:00; Stop 10/07/16 at 20:59 Ibuprofen (Advil) 400 mg Q6HP PRN PO PAIN Last administered on 09/10/16 09:04 ; Start 09/09/16 at 15:30; Stop 10/09/16 at 15:29 [place] Carbonate (Eskalith-Cr) 450 mg DAILY PO Last administered on 09/09/16 07:49; Start 09/08/16 at 09:00; Stop 09/09/16 at 15:17; Status DC Magnesium Hydroxide (Milk Of Magnesia) 30 ml DAILYPRN PRN PO CONSTIPATION; Start 09/07/16 at 21:45; Stop 10/07/16 at 21:44 Montelukast Sodium (Singulair) 10 mg DAILY PO Last administered on 09/10/16 09 :03; Start 09/08/16 at 09:00; Stop 10/08/16 at 08:59 Nicotine (Nicoderm Cq 21mg) 1 patch DAILY TD Last administered on 09/10/16 09: 02; Start 09/08/16 at 09:00; Stop 10/08/16 at 08:59 Olanzapine (ZyPREXA) 5 mg QHS PRN PO ANXIETY/AGITATION Last administered on 00:26; Start 09/09/16 at 15:30; Stop 09/10/16 at 15:24; Status DC Olanzapine (ZyPREXA) 7.5 mg QHS PO Last administered on 09/07/16 22:49; Start 09/07/16 at 21:00; Stop 09/09/16 at 15:24; Status DC Omeprazole (PriLOSEC) 20 mg DAILY PO Last administered on 09/10/16 09:02; Start 09/08/16 at 09:00; Stop 10/08/16 at 08:59 Paliperidone (Invega) 3 mg QAM PO Last administered on 09/10/16 09:03; Start 09/09/16 at 09:00; Stop 10/09/16 at 08:59 Ramelteon (Rozerem) 8 mg QHS PO ; Start 09/10/16 at 21:00; Stop 10/10/16 at 20: 59 Allergies Coded Allergies: Hydrocodone (Verified Allergy, Unknown, 09/07/16) [place] FCF (Verified Adverse Reaction, Unknown, 09/07/16) HALLUCINATIONS Lisdexamfetamine (Verified Adverse Reaction, Unknown, 09/07/16) HALLUCINATIONS Red Dye (Verified Adverse Reaction, Unknown, 09/07/16) HALLUCINATIONS Trazodone (Unverified Adverse Reaction, Unknown, "numbness all over", 09/10) From report by Dr. Suazo Yellow Dye (Verified Adverse Reaction, Unknown, 09/07/16) HALLUCINATIONS GME ATTESTATION My preceptor for this patient encounter was physically present in the building during the encounter and was fully available. As needed, all aspects of the patient interview, examination, medical decision making process, and medical care plan development were reviewed and approved by the preceptor. Preceptor is aware and concurs with the plan as stated in the body of this note and will attest to such by his/her cosignature. CORNELIO SHARMA DO Sep 10, 2016 16:28
[2016-09-10 18:00] VITALS: BP 137/70
[2016-09-10] MEDS: ACETAMINOPHEN TAB 650MG DOSE (2X325MG) PO PRN (20:51)
[2016-09-10] MEDS ORDERED: RAMELTEON 8 MG TAB (ROZEREM) PO SCH (21:00)
[2016-09-11 00:07] LABS: Lyme Disease IgG Ab 18 kDa Ban Absent (.); Lyme Disease IgG Ab 23 kDa Ban Absent (.); Lyme Disease IgG Ab 28 kDa Ban Absent (.); Lyme Disease IgG Ab 30 kDa Ban Absent (.); Lyme Disease IgG Ab 39 kDa Ban Present (.); Lyme Disease IgG Ab 41 kDa Ban Present (.); Lyme Disease IgG Ab 45 kDa Ban Absent (.); Lyme Disease IgG Ab 58 kDa Ban Present (.); Lyme Disease IgG Ab 66 kDa Ban Absent (.); Lyme Disease IgG Ab 93 kDa Ban Absent (.); Lyme Disease IgG West Blot Int Negative (.); Lyme Disease IgG/IgM Antibodie 2.15 ISR (0.00-0.90); Lyme Disease IgM Ab 23 kDa Ban Absent (.); Lyme Disease IgM Ab 39 kDa Ban Absent (.); Lyme Disease IgM Ab 41 kDa Ban Present (.); Lyme Disease IgM West Blot Int Negative (.)
[2016-09-11 06:45] VITALS: BP 115/58
[2016-09-11] MEDS: IBUPROFEN 400 MG TAB PO PRN ×2 (06:51→22:10)
[2016-09-11] MEDS: NICOTINE 21MG/24HR 1 EA TRANSDERMAL TD SCH (08:18)
[2016-09-11] MEDS: OMEPRAZOLE 20 MG CAP PO SCH (08:19)
[2016-09-11] MEDS: CYANOCOBALAMIN 500 MCG TAB PO SCH (08:19)
[2016-09-11] MEDS: hydrOXYzine 25 MG TAB PO SCH ×2 (08:19→21:00)
[2016-09-11] MEDS: PALIPERIDONE 3 MG ER TAB (INVEGA) PO SCH (08:19)
[2016-09-11] MEDS: MONTELUKAST 10 MG TAB PO SCH (08:19)
[2016-09-11] MEDS: FLUTICASONE PROP 0.05% NASAL SPRAY 16 GM (FLONASE) SCH (08:19)
[2016-09-11] MEDS: ACETAMINOPHEN TAB 650MG DOSE (2X325MG) PO PRN ×2 (08:21→16:19)
[2016-09-11] MEDS: MAALOX 30 ML SUSP *UDC PO PRN ×2 (12:00→16:15)
--- NOTE | 2016-09-11 18:41 | IPNPDOC ---
[facility] Progress Note Progress Note DATE OF SERVICE: 09/11/16 INTERVAL HISTORY: Medication Side effects: Reports no side effects from her paliperidone. She states her ramelteon caused her some excessive sedation today. Behavior: Has been generally amenable although irritable and angry with some other patients that are more sick than she is. Group Attendance: Has been attending groups generally frequently, attended this provider's process group and was able to work through some conflicts but was ultimately unable to work with patients that were much sicker than she is. Psychiatric Symptom change: She still appears to be endorsing hyper religiosity , pressured speech, irritable mood and impulsivity that have responded only minorly to the start of the paliperidone. VITAL SIGNS: See below. NEW TEST RESULTS: See below CURRENT MEDICATIONS: See below. MENTAL STATUS EXAMINATION: General: Well dressed with good hygiene Speech: Rapid and pressured Thought processes: Coherent Thought content: Hyperreligious focus with some paranoid ideation at times Abstract reasoning, and computation: Contaminated with concrete thinking Description of associations: Loose Description of abnormal or psychotic thoughts:Denies any suicidal or homicidal ideation. Denies any auditory or visual hallucinations. Does not appear to be responding to internal stimuli. Judgment: Poor Insight: Poor Orientation: Alert and orientated 3 Recent and remote memory: Intact Attention span and concentration: Intact Fund of knowledge: Adequate Mood: "Fine" Affect: Irritable DIAGNOSES: 1. Bipolar 1 disorder, current episode mixed. 2. PTSD, chronic. 3. Borderline personality disorder, provisional. ASSESSMENT: Stable MANAGEMENT PLAN: Medications: Will continue paliperidone 3 mg daily as patient does not want to increase on this. We will cut the ramelteon in half to 4 mg nightly and changed to when necessary dosing Psychotherapy: Encourage group attendance, we'll consider doing individual psychotherapy with this provider depending on time constraints Social: Patient was able to work with her skilled nursing case manager in order to obtain a cost Limited apartment Misc: None Disposition: The patient will need of further inpatient stay to address her currently mixed/manic state with severe distortions and impulsivity the pros a danger to herself and others should she be released in her partially treated condition. TIME SPENT: 30 minutes. Vital Signs Vital Signs Date Time Temp Pulse Resp B/P Pulse Ox O2 Delivery O2 Flow Rate FiO2 09/11/16 06:45 98.1 97 18 115/58 09/07/16 22:30 99 09/07/16 17:25 Room Air Current Medications Current Medications Acetaminophen (Tylenol Tab) 650 mg Q6HP PRN PO HEADACHE or DISCOMFORT Last administered on 09/11/16 16:19; Start 09/07/16 at 21:45; Stop 10/07/16 at 21:44 Al Hydrox/Mg Hydrox/Simethicone (Mylanta) 30 ml Q4HP PRN PO HEARTBURN/ INDIGESTION Last administered on 09/11/16 16:15; Start 09/07/16 at 21:45; Stop 10/07/16 at 21:44 Artificial Tears ([place] Tears) 2 drop DAILYPRN PRN OU DRY EYES; Start 09/07/16 at 21:45; Stop 10/07/16 at 21:44 Cyanocobalamin (Vitamin B12) 500 mcg DAILY PO Last administered on 09/11/16 08 :19; Start 09/08/16 at 09:00; Stop 10/08/16 at 08:59 Fluticasone Propionate (Flonase 0.05% Nasal [place]) 1 SPRAY IN EACH NOSTRIL DAILY NA Last administered on 09/11/16 08:19; Start 09/08/16 at 09:00; Stop 10/08/16 at 08:59 Home Med (Med Rec Complete!) ASDIRECTED XX ; Start 09/07/16 at 20:45; Stop at 20:59; Status DC Hydroxyzine HCl (Atarax) 25 mg BID PO Last administered on 09/10/16 20:50; Start 09/07/16 at 21:00; Stop 10/07/16 at 20:59 Ibuprofen (Advil) 400 mg Q6HP PRN PO PAIN Last administered on 09/11/16 06:51 ; Start 09/09/16 at 15:30; Stop 10/09/16 at 15:29 [place] Carbonate (Eskalith-Cr) 450 mg DAILY PO Last administered on 09/09/16 07:49; Start 09/08/16 at 09:00; Stop 09/09/16 at 15:17; Status DC Magnesium Hydroxide (Milk Of Magnesia) 30 ml DAILYPRN PRN PO CONSTIPATION; Start 09/07/16 at 21:45; Stop 10/07/16 at 21:44 Montelukast Sodium (Singulair) 10 mg DAILY PO Last administered on 09/11/16 08 :19; Start 09/08/16 at 09:00; Stop 10/08/16 at 08:59 Nicotine (Nicoderm Cq 21mg) 1 patch DAILY TD Last administered on 09/11/16 08: 18; Start 09/08/16 at 09:00; Stop 10/08/16 at 08:59 Olanzapine (ZyPREXA) 5 mg QHS PRN PO ANXIETY/AGITATION Last administered on 00:26; Start 09/09/16 at 15:30; Stop 09/10/16 at 15:24; Status DC Olanzapine (ZyPREXA) 7.5 mg QHS PO Last administered on 09/07/16 22:49; Start 09/07/16 at 21:00; Stop 09/09/16 at 15:24; Status DC Omeprazole (PriLOSEC) 20 mg DAILY PO Last administered on 09/11/16 08:19; Start 09/08/16 at 09:00; Stop 10/08/16 at 08:59 Paliperidone (Invega) 3 mg QAM PO Last administered on 09/11/16 08:19; Start 09/09/16 at 09:00; Stop 10/09/16 at 08:59 Ramelteon (Rozerem) 4 mg QHS PO ; Start 09/11/16 at 21:00; Stop 10/11/16 at 20: 59 Ramelteon (Rozerem) 8 mg QHS PO Last administered on 09/10/16 20:52; Start 04/18 at 21:00; Stop 09/11/16 at 16:32; Status DC Allergies Coded Allergies: Hydrocodone (Verified Allergy, Unknown, 09/07/16) [place] Blue FCF (Verified Adverse Reaction, Unknown, 09/07/16) HALLUCINATIONS Lisdexamfetamine (Verified Adverse Reaction, Unknown, 09/07/16) HALLUCINATIONS Red Dye (Verified Adverse Reaction, Unknown, 09/07/16) HALLUCINATIONS Trazodone (Unverified Adverse Reaction, Unknown, "numbness all over", 09/10) From report by Dr. Suazo Yellow Dye (Verified Adverse Reaction, Unknown, 09/07/16) HALLUCINATIONS GME ATTESTATION My preceptor for this patient encounter was physically present in the building during the encounter and was fully available. As needed, all aspects of the patient interview, examination, medical decision making process, and medical care plan development were reviewed and approved by the preceptor. Preceptor is aware and concurs with the plan as stated in the body of this note and will attest to such by his/her cosignature. CORNELIO SHARMA DO Sep 11, 2016 18:40
[2016-09-11] MEDS ORDERED: RAMELTEON 8 MG TAB (ROZEREM) PO SCH (21:00)
[2016-09-11] MEDS ORDERED: RAMELTEON 8 MG TAB (ROZEREM) PO PRN (21:00)
[2016-09-12 00:08] LABS: VITAMIN D 1,25 DIHYDROXY 31.8 pg/mL (19.9-79.3)
[2016-09-12 06:28] VITALS: BP 116/62
[2016-09-12] MEDS: hydrOXYzine 25 MG TAB PO SCH ×2 (08:03→20:42)
[2016-09-12] MEDS: FLUTICASONE PROP 0.05% NASAL SPRAY 16 GM (FLONASE) SCH (08:03)
[2016-09-12] MEDS: IBUPROFEN 400 MG TAB PO PRN ×2 (08:03→16:59)
[2016-09-12] MEDS: NICOTINE 21MG/24HR 1 EA TRANSDERMAL TD SCH (08:03)
[2016-09-12] MEDS: OMEPRAZOLE 20 MG CAP PO SCH (08:03)
[2016-09-12] MEDS: PALIPERIDONE 3 MG ER TAB (INVEGA) PO SCH (08:03)
[2016-09-12] MEDS: CYANOCOBALAMIN 500 MCG TAB PO SCH (08:03)
[2016-09-12] MEDS: MONTELUKAST 10 MG TAB PO SCH (08:04)
[2016-09-12] MEDS: MAALOX 30 ML SUSP *UDC PO PRN (09:58)
--- NOTE | 2016-09-12 12:17 | IPNPDOC ---
Subjective Date Seen The patient was seen on 09/11/16. Subjective Chief Complaint/HPI The patient is a 25-year-old female admitted with a reason for visit of Bipolar D/O. Events since last encounter Pt with no concerns. Had remote h/o lyme in 2011 which was treated at that time per pt. Skin: Denies: Breakdown, Lesions, Rash Objective Physical Examination General Exam: Positive: Alert Chest Exam: Positive: Clear to auscultation, Normal air movement Heart Exam: Positive: Normal S1, Normal S2, Rate Normal, Regular Rhythm, Negative: Murmurs, Rubs Skin Exam: Positive: Nl turgor and temperature, Negative: Breakdown, Lesion, Other skin issue, Pruritus, Rash Assessment /Plan Problems (1) Abnormal laboratory test Status: Acute Discussed With: Other Discussed With: (Dr Hummel. Infectious disease) Problem Text: * Lyme titre noted to be abnormal. * Pt was previously treated in the past for Lyme. * Reviewed with Dr Hummel- ID. * Nothing to be concerned with at this time. * Does not need any treatment at this time. Plan/VTE VTE Prophylaxis Ordered?: No (ambulatory) VS, I&O, 24H, Fishbone Vital Signs/I&O Vital Signs Date Time Temp Pulse Resp B/P Pulse Ox O2 Delivery O2 Flow Rate FiO2 09/12/16 06:28 96.9 101 18 116/62 09/07/16 22:30 99 09/07/16 17:25 Room Air Genna Jean-Baptiste Sep 12, 2016 12:17
[2016-09-12] MEDS: ACETAMINOPHEN TAB 650MG DOSE (2X325MG) PO PRN (13:30)
[2016-09-12] MEDS ORDERED: PALIPERIDONE PALMITATE 234 MG/1.5 ML INJ (INVEGA SUSTENNA)(J2426) IM ONE (14:00)
--- NOTE | 2016-09-12 16:50 | IPNPDOC ---
[facility] Progress Note Progress Note DATE OF SERVICE: 09/12/16 INTERVAL HISTORY: Medication Side effects: Reportedly tolerating the paliperidone and Rozerem well without any side effects currently Behavior: Some noted irritability during the morning but generally friendly and amenable Group Attendance: Attends groups fairly frequently Psychiatric Symptom change: Still appears to be endorsing talk activity, increased goal-directed activity and impulsivity associated with an irritable mood VITAL SIGNS: See below. NEW TEST RESULTS: See below CURRENT MEDICATIONS: See below. MENTAL STATUS EXAMINATION: General: Well dressed with good grooming Speech: Pressured and rapid Thought processes: Mildly disorganized Thought content: Perseveration on past traumas Abstract reasoning, and computation: Impaired Description of associations: Loosened Description of abnormal or psychotic thoughts:Denies any suicidal or homicidal ideation. Denies any auditory or visual hallucinations. Does not appear to be responding to internal stimuli. Judgment: Poor Insight: Poor Orientation: Alert and orientated 3 Recent and remote memory: Intact Attention span and concentration: Intact Fund of knowledge: Adequate Mood: "Okay" Affect: Mildly dysphoric DIAGNOSES: 1. Unspecified bipolar disorder. 2. borderline personality disorder, provisional. 3. PTSD, unspecified. ASSESSMENT: Stable MANAGEMENT PLAN: Medications: Will continue paliperidone 3 mg daily patient sees she is tolerating this well and wants to try the Invega Depo, according to the computer typesetter the initiation doses to 34 mg on day 1 and 77 her she should receive a 154 mg shot before receiving a monthly dose that is equivalent to her oral dose. Continue when necessary Rozerem Psychotherapy: Encourage groups Social: Painting Supervisor is working on housing Misc: None Disposition: The patient will need of further inpatient stay to address her accelerated and distorted state the poses a danger to herself or others. TIME SPENT: 50 minutes. Vital Signs Vital Signs Date Time Temp Pulse Resp B/P Pulse Ox O2 Delivery O2 Flow Rate FiO2 09/12/16 06:28 96.9 101 18 116/62 09/07/16 22:30 99 09/07/16 17:25 Room Air Current Medications Current Medications Acetaminophen (Tylenol Tab) 650 mg Q6HP PRN PO HEADACHE or DISCOMFORT Last administered on 09/12/16t 13:30; Start 09/07/16 at 21:45; Stop 10/07/16 at 21:44 Al Hydrox/Mg Hydrox/Simethicone (Mylanta) 30 ml Q4HP PRN PO HEARTBURN/ INDIGESTION Last administered on 09/12/16 09:58; Start 09/07/16 at 21:45; Stop 10/07/16 at 21:44 Artificial Tears ([place] Tears) 2 drop DAILYPRN PRN OU DRY EYES; Start 09/07/16 at 21:45; Stop 10/07/16 at 21:44 Cyanocobalamin (Vitamin B12) 500 mcg DAILY PO Last administered on 09/12/16 08 :03; Start 09/08/16 at 09:00; Stop 10/08/16 at 08:59 Fluticasone Propionate (Flonase 0.05% Nasal [place]) 1 SPRAY IN EACH NOSTRIL DAILY NA Last administered on 09/12/16 08:03; Start 09/08/16 at 09:00; Stop 10/08/16 at 08:59 Home Med (Med Rec Complete!) ASDIRECTED XX ; Start 09/07/16 at 20:45; Stop at 20:59; Status DC Hydroxyzine HCl (Atarax) 25 mg BID PO Last administered on 09/12/16 08:03; Start 09/07/16 at 21:00; Stop 10/07/16 at 20:59 Ibuprofen (Advil) 400 mg Q6HP PRN PO PAIN Last administered on 09/12/16 08:03 ; Start 09/09/16 at 15:30; Stop 10/09/16 at 15:29 [place] Carbonate (Eskalith-Cr) 450 mg DAILY PO Last administered on 09/09/16 07:49; Start 09/08/16 at 09:00; Stop 09/09/16 at 15:17; Status DC Magnesium Hydroxide (Milk Of Magnesia) 30 ml DAILYPRN PRN PO CONSTIPATION; Start 09/07/16 at 21:45; Stop 10/07/16 at 21:44 Montelukast Sodium (Singulair) 10 mg DAILY PO Last administered on 09/12/16 08 :04; Start 09/08/16 at 09:00; Stop 10/08/16 at 08:59 Nicotine (Nicoderm Cq 21mg) 1 patch DAILY TD Last administered on 09/12/16 08: 03; Start 09/08/16 at 09:00; Stop 10/08/16 at 08:59 Olanzapine (ZyPREXA) 5 mg QHS PRN PO ANXIETY/AGITATION Last administered on 00:26; Start 09/09/16 at 15:30; Stop 09/10/16 at 15:24; Status DC Olanzapine (ZyPREXA) 7.5 mg QHS PO Last administered on 09/07/16 22:49; Start 09/07/16 at 21:00; Stop 09/09/16 at 15:24; Status DC Omeprazole (PriLOSEC) 20 mg DAILY PO Last administered on 09/12/16 08:03; Start 09/08/16 at 09:00; Stop 10/08/16 at 08:59 Paliperidone (Invega) 3 mg QAM PO Last administered on 09/12/16 08:03; Start 09/09/16 at 09:00; Stop 10/09/16 at 08:59 Ramelteon (Rozerem) 4 mg QHS PO ; Start 09/11/16 at 21:00; Stop 09/11/16 at 21: 00; Status DC Ramelteon (Rozerem) 4 mg QHSP PRN PO insomnia ; Start 09/11/16 at 21:00; Stop 10/11/16 at 20:59 Ramelteon (Rozerem) 8 mg QHS PO Last administered on 09/10/16 20:52; Start 04/18 at 21:00; Stop 09/11/16 at 16:32; Status DC Allergies Coded Allergies: Hydrocodone (Verified Allergy, Unknown, 09/07/16) [place] Blue FCF (Verified Adverse Reaction, Unknown, 09/07/16) HALLUCINATIONS Lisdexamfetamine (Verified Adverse Reaction, Unknown, 09/07/16) HALLUCINATIONS Red Dye (Verified Adverse Reaction, Unknown, 09/07/16) HALLUCINATIONS Trazodone (Unverified Adverse Reaction, Unknown, "numbness all over", 09/10) From report by Dr. Suazo Yellow Dye (Verified Adverse Reaction, Unknown, 09/07/16) HALLUCINATIONS GME ATTESTATION My preceptor for this patient encounter was physically present in the building during the encounter and was fully available. As needed, all aspects of the patient interview, examination, medical decision making process, and medical care plan development were reviewed and approved by the preceptor. Preceptor is aware and concurs with the plan as stated in the body of this note and will attest to such by his/her cosignature. CORNELIO SHARMA DO Sep 12, 2016 16:50
[2016-09-12 18:00] VITALS: BP 123/68
[2016-09-13 06:11] VITALS: BP 106/57
[2016-09-13] MEDS: IBUPROFEN 400 MG TAB PO PRN ×2 (06:40→17:21)
[2016-09-13] MEDS: MONTELUKAST 10 MG TAB PO SCH (08:00)
[2016-09-13] MEDS: NICOTINE 21MG/24HR 1 EA TRANSDERMAL TD SCH (08:00)
[2016-09-13] MEDS: FLUTICASONE PROP 0.05% NASAL SPRAY 16 GM (FLONASE) SCH (08:00)
[2016-09-13] MEDS: CYANOCOBALAMIN 500 MCG TAB PO SCH (08:00)
[2016-09-13] MEDS: OMEPRAZOLE 20 MG CAP PO SCH (08:00)
[2016-09-13] MEDS: hydrOXYzine 25 MG TAB PO SCH ×2 (08:01→21:11)
[2016-09-13] MEDS: PALIPERIDONE 3 MG ER TAB (INVEGA) PO SCH (08:01)
[2016-09-13] MEDS: ACETAMINOPHEN TAB 650MG DOSE (2X325MG) PO PRN (11:40)
[2016-09-13] MEDS: MOM 30ML SUSPENSION UDC PO PRN (12:31)
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
[2016-09-13 18:00] VITALS: BP 125/70
[2016-09-14 06:34] VITALS: BP 98/50
[2016-09-14] MEDS: IBUPROFEN 400 MG TAB PO PRN ×2 (06:38→14:30)
[2016-09-14] MEDS: FLUTICASONE PROP 0.05% NASAL SPRAY 16 GM (FLONASE) SCH (08:25)
[2016-09-14] MEDS: CYANOCOBALAMIN 500 MCG TAB PO SCH (08:25)
[2016-09-14] MEDS: MONTELUKAST 10 MG TAB PO SCH (08:25)
[2016-09-14] MEDS: hydrOXYzine 25 MG TAB PO SCH ×2 (08:26→20:20)
[2016-09-14] MEDS: NICOTINE 21MG/24HR 1 EA TRANSDERMAL TD SCH (08:26)
[2016-09-14] MEDS: OMEPRAZOLE 20 MG CAP PO SCH (08:27)
[2016-09-14] MEDS: PALIPERIDONE 3 MG ER TAB (INVEGA) PO SCH (08:27)
[2016-09-14] MEDS: MOM 30ML SUSPENSION UDC PO PRN (10:54)
[2016-09-14 18:00] VITALS: BP 119/70
[2016-09-14] MEDS: ACETAMINOPHEN TAB 650MG DOSE (2X325MG) PO PRN (20:20)
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
[2016-09-15] MEDS: IBUPROFEN 400 MG TAB PO PRN ×2 (06:38→17:48)
[2016-09-15 07:00] VITALS: BP 108/57
[2016-09-15] MEDS: NICOTINE 21MG/24HR 1 EA TRANSDERMAL TD SCH (08:31)
[2016-09-15] MEDS: CYANOCOBALAMIN 500 MCG TAB PO SCH (08:31)
[2016-09-15] MEDS: FLUTICASONE PROP 0.05% NASAL SPRAY 16 GM (FLONASE) SCH (08:31)
[2016-09-15] MEDS: MULTIVITAMINS/MINERALS THERAP 1 TAB PO SCH (08:32)
[2016-09-15] MEDS: MONTELUKAST 10 MG TAB PO SCH (08:32)
[2016-09-15] MEDS: PALIPERIDONE 3 MG ER TAB (INVEGA) PO SCH (08:32)
[2016-09-15] MEDS: hydrOXYzine 25 MG TAB PO SCH ×2 (08:32→21:53)
[2016-09-15] MEDS: OMEPRAZOLE 20 MG CAP PO SCH (08:32)
[2016-09-15] MEDS: MAALOX 30 ML SUSP *UDC PO PRN (10:38)
[2016-09-15 18:00] VITALS: BP 129/78
[2016-09-16 06:42] VITALS: BP 134/78
[2016-09-16] MEDS: IBUPROFEN 400 MG TAB PO PRN ×3 (07:02→23:38)
[2016-09-16] MEDS: MULTIVITAMINS/MINERALS THERAP 1 TAB PO SCH (08:12)
[2016-09-16] MEDS: CYANOCOBALAMIN 500 MCG TAB PO SCH (08:12)
[2016-09-16] MEDS: FLUTICASONE PROP 0.05% NASAL SPRAY 16 GM (FLONASE) SCH (08:12)
[2016-09-16] MEDS: MONTELUKAST 10 MG TAB PO SCH (08:12)
[2016-09-16] MEDS: hydrOXYzine 25 MG TAB PO SCH ×2 (08:14→23:37)
[2016-09-16] MEDS: OMEPRAZOLE 20 MG CAP PO SCH (08:14)
[2016-09-16] MEDS: PALIPERIDONE 3 MG ER TAB (INVEGA) PO SCH (08:14)
[2016-09-16] MEDS: NICOTINE 21MG/24HR 1 EA TRANSDERMAL TD SCH (08:14)
[2016-09-16] MEDS: MAALOX 30 ML SUSP *UDC PO PRN (12:29)
[2016-09-16 14:13] LABS: BASO # 0.1 K/mm3 (0.0-0.2); BASO % 0.7 % (0.0-1.0); EOS # 0.5 K/mm3 (0.0-0.50); EOS % 4.1 % (0.0-3.0); LARGE UNSTAINED CELL # 0.3 K/mm3 (0.0-0.4); LARGE UNSTAINED CELL % 2.1 % (0.0-4.0); LYMPH # 2.8 K/mm3 (1.5-6.5); LYMPH % 20.8 % (24.0-44.0); MEAN CORPUSCULAR HEMOGLOBIN 30.4 pg (27.0-33.0); MEAN CORPUSCULAR HGB CONC 32.3 g/dl (32.0-36.5); MEAN CORPUSCULAR VOLUME 94.3 fl (80.0-96.0); MONO # 0.7 K/mm3 (0.0-0.8); NEUTROPHILS # 8.9 K/mm3 (1.8-7.7); NEUTROPHILS % 67.4 % (36.0-66.0); PLATELET COUNT, AUTOMATED 315 k/mm3 (150-450); RED CELL DISTRIBUTION WIDTH 12.5 % (11.5-14.5); WHITE BLOOD COUNT 13.2 K/mm3 (4.0-10.0)
[2016-09-16 14:46] LABS: ALBUMIN 3.6 GM/DL (3.2-5.2); ALBUMIN/GLOBULIN RATIO 1.03 (1.00-1.93); ALKALINE PHOSPHATASE 93 U/L (45-117); ALT/SGPT 168 U/L (12-78); ANION GAP 9 MEQ/L (8-16); AST/SGOT 90 U/L (15-37); BILIRUBIN,TOTAL 0.2 MG/DL (0.2-1.0); BLOOD UREA NITROGEN 13 MG/DL (7-18); CALCIUM LEVEL 8.6 MG/DL (8.5-10.1); CARBON DIOXIDE LEVEL 28 MEQ/L (21-32); CHLORIDE LEVEL 104 MEQ/L (98-107); CREATININE FOR GFR 0.87 MG/DL (0.55-1.02); GLOMERULAR FILTRATION RATE > 60.0 (>60); GLUCOSE, FASTING 91 MG/DL (70-105); POTASSIUM SERUM 3.9 MEQ/L (3.5-5.1); SODIUM LEVEL 141 MEQ/L (136-145); TOTAL PROTEIN 7.1 GM/DL (6.4-8.2)
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
[2016-09-16 18:00] VITALS: BP 130/86
[2016-09-16] MEDS ORDERED: hydrOXYzine 10 MG TAB PO SCH (21:00)
[2016-09-17] MEDS: OMEPRAZOLE 20 MG CAP PO SCH (09:00)
[2016-09-17] MEDS: hydrOXYzine 25 MG TAB PO SCH (09:00)
[2016-09-17] MEDS: MONTELUKAST 10 MG TAB PO SCH (09:13)
[2016-09-17] MEDS: FLUTICASONE PROP 0.05% NASAL SPRAY 16 GM (FLONASE) SCH (09:13)
[2016-09-17] MEDS: MULTIVITAMINS/MINERALS THERAP 1 TAB PO SCH (09:14)
[2016-09-17] MEDS: CYANOCOBALAMIN 500 MCG TAB PO SCH (09:14)
[2016-09-17] MEDS: NICOTINE 21MG/24HR 1 EA TRANSDERMAL TD SCH (09:15)
[2016-09-17] MEDS: IBUPROFEN 400 MG TAB PO PRN ×2 (13:59→20:38)
[2016-09-17] MEDS: MOM 30ML SUSPENSION UDC PO PRN (15:27)
[2016-09-17] MEDS ORDERED: hydrOXYzine 25 MG TAB PO PRN (16:00)
--- NOTE | 2016-09-17 16:52 | IPNPDOC ---
[facility] Progress Note Progress Note DATE OF SERVICE: 09/17/16 HISTORY: Evaluated 25-year-old female with history of bipolar disorder, PTSD, borderline personality disorder who has been treated several times of these units and currently is on Atarax 25 mg by mouth twice a day. Her other psychiatric medications like Abilify was discontinued because she complains of night sweats and when when labs were performed yesterday it was found that her liver function tests are elevated and her hematocrit and hemoglobin have been dropping since her admission. A hepatitis profile, liver ultrasound and HIV tests were ordered VITAL SIGNS: See below. NEW TEST RESULTS: Hepatitis profile and HIV tests are pending. Liver ultrasound was normal CURRENT MEDICATIONS: See below. MENTAL STATUS EXAMINATION: Patient is a 25-year old female, who is cooperative, anxious, good eye contact and will hygiene Speech: Is pressured, fast Language skills are fair. Thought processes including: Linear, mostly rational Thought content: Negative for suicidal thoughts, negative for homicidal thoughts , negative for delusional thoughts, negative for hallucinations, negative for obsessions and negative for phobias. Abstract reasoning, and computation: Fair Description of associations:And enough associations. Description of abnormal or psychotic thoughts: Not present. Judgment: Improving. Insight: Improving. Orientation: Oriented 3. Recent and remote memory: Intact. Attention span and concentration: Fair. Language: Fluid, articulate. Fund of knowledge: Fair. Mood: Elated, anxious . Affect: Elated and anxious DIAGNOSES: 1. Bipolar disorder most recent episode manic. 2. PTSD. 3. And borderline personality disorder. ASSESSMENT: Patient needs medical clearance, where waiting for her lab results ( HIV and hepatitis profile). She has been stabilized for her psychiatric condition although she she needs to continue with medications and psychotherapy as an outpatient. MANAGEMENT PLAN: Possible discharge in 1 or 2 days with follow-up appointments at her outpatient provider. TIME SPENT: 25 minutes. Vital Signs Vital Signs Date Time Temp Pulse Resp B/P Pulse Ox O2 Delivery O2 Flow Rate FiO2 09/16/16 18:00 98.8 80 18 130/86 09/13/16 06:11 Room Air Laboratory Data 24H Labs Laboratory Tests 2 09/16/16 17:00: Chlamydia trachomatis DNA (SABA) NEGATIVE, Neisseria gonorrhoeae DNA (SABA) NEGATIVE Current Medications Current Medications Acetaminophen (Tylenol Tab) 650 mg Q6HP PRN PO HEADACHE or DISCOMFORT Last administered on 09/14/16 20:20; Start 09/07/16 at 21:45; Stop 10/07/16 at 21:44 Al Hydrox/Mg Hydrox/Simethicone (Mylanta) 30 ml Q4HP PRN PO HEARTBURN/ INDIGESTION Last administered on 09/16/16 12:29; Start 09/07/16 at 21:45; Stop 10/07/16 at 21:44 Artificial Tears (Akwa Tears) 2 drop DAILYPRN PRN OU DRY EYES; Start 09/07/16 at 21:45; Stop 10/07/16 at 21:44 Cyanocobalamin (Vitamin B12) 500 mcg DAILY PO Last administered on 09/17/16 09 :14; Start 09/08/16 at 09:00; Stop 10/08/16 at 08:59 Fluticasone Propionate (Flonase 0.05% Nasal [place]) 1 SPRAY IN EACH NOSTRIL DAILY NA Last administered on 09/17/16 09:13; Start 09/08/16 at 09:00; Stop 10/08/16 at 08:59 Home Med (Med Rec Complete!) ASDIRECTED XX ; Start 09/07/16 at 20:45; Stop at 20:59; Status DC Hydroxyzine HCl (Atarax) 10 mg QHS PO ; Start 09/16/16 at 21:00; Stop 10/16/16 at 20:59; Status UNV Hydroxyzine HCl (Atarax) 25 mg BID PO Last administered on 09/16/16 23:37; Start 09/07/16 at 21:00; Stop 09/17/16 at 15:55; Status DC Hydroxyzine HCl (Atarax) 25 mg BID PRN PO anxiety; Start 09/17/16 at 16:00; Stop 10/17/16 at 15:59 Ibuprofen (Advil) 400 mg Q6HP PRN PO PAIN Last administered on 09/17/16 13:59 ; Start 09/09/16 at 15:30; Stop 10/09/16 at 15:29 [place] Carbonate (Eskalith-Cr) 450 mg DAILY PO Last administered on 09/09/16 07:49; Start 09/08/16 at 09:00; Stop 09/09/16 at 15:17; Status DC Magnesium Hydroxide (Milk Of Magnesia) 30 ml DAILYPRN PRN PO CONSTIPATION Last administered on 09/17/16 15:27; Start 09/07/16 at 21:45; Stop 10/07/16 at 21:44 Montelukast Sodium (Singulair) 10 mg DAILY PO Last administered on 09/17/16 09 :13; Start 09/08/16 at 09:00; Stop 10/08/16 at 08:59 Multivitamins (Theragram-M) 1 tab DAILY PO Last administered on 09/17/16 09:14 ; Start 09/15/16 at 09:00; Stop 10/15/16 at 08:59 Nicotine (Nicoderm Cq 21mg) 1 patch DAILY TD Last administered on 09/17/16 09: 15; Start 09/08/16 at 09:00; Stop 10/08/16 at 08:59 Olanzapine (ZyPREXA) 5 mg QHS PRN PO ANXIETY/AGITATION Last administered on 00:26; Start 09/09/16 at 15:30; Stop 09/10/16 at 15:24; Status DC Olanzapine (ZyPREXA) 7.5 mg QHS PO Last administered on 09/07/16 22:49; Start 09/07/16 at 21:00; Stop 09/09/16 at 15:24; Status DC Omeprazole (PriLOSEC) 20 mg DAILY PO Last administered on 09/13/16 08:00; Start 09/08/16 at 09:00; Stop 10/08/16 at 08:59 Paliperidone (Invega) 3 mg QAM PO Last administered on 09/15/16 08:32; Start 09/09/16 at 09:00; Stop 09/16/16 at 15:25; Status DC Ramelteon (Rozerem) 4 mg QHS PO ; Start 09/11/16 at 21:00; Stop 09/11/16 at 21: 00; Status DC Ramelteon (Rozerem) 4 mg QHSP PRN PO insomnia Last administered on 09/14/16 21:35; Start 09/11/16 at 21:00; Stop 09/16/16 at 10:10; Status DC Ramelteon (Rozerem) 8 mg QHS PO Last administered on 09/10/16t 20:52; Start 04/18 at 21:00; Stop 09/11/16 at 16:32; Status DC Allergies Coded Allergies: Hydrocodone (Verified Allergy, Unknown, 09/07/16) [place] Blue FCF (Verified Adverse Reaction, Unknown, 09/07/16) HALLUCINATIONS Lisdexamfetamine (Verified Adverse Reaction, Unknown, 09/07/16) HALLUCINATIONS Red Dye (Verified Adverse Reaction, Unknown, 09/07/16) HALLUCINATIONS Trazodone (Unverified Adverse Reaction, Unknown, "numbness all over", 09/10) From report by Dr. Suazo Yellow Dye (Verified Adverse Reaction, Unknown, 09/07/16) HALLUCINATIONS KETAN HACKETT MD Sep 17, 2016 16:52
[2016-09-17 18:00] VITALS: BP 136/80
[2016-09-17] MEDS: MAALOX 30 ML SUSP *UDC PO PRN (22:12)
[2016-09-17] MEDS ORDERED: CEPACOL LOZENGE PO PRN (22:45)
[2016-09-18 06:19] VITALS: BP 148/76
[2016-09-18] MEDS: MULTIVITAMINS/MINERALS THERAP 1 TAB PO SCH (08:12)
[2016-09-18] MEDS: FLUTICASONE PROP 0.05% NASAL SPRAY 16 GM (FLONASE) SCH (08:12)
[2016-09-18] MEDS: MONTELUKAST 10 MG TAB PO SCH (08:12)
[2016-09-18] MEDS: CYANOCOBALAMIN 500 MCG TAB PO SCH (08:12)
[2016-09-18] MEDS: OMEPRAZOLE 20 MG CAP PO SCH (08:12)
[2016-09-18] MEDS: IBUPROFEN 400 MG TAB PO PRN (08:13)
[2016-09-18] MEDS: NICOTINE 21MG/24HR 1 EA TRANSDERMAL TD SCH (08:13)
--- NOTE | 2016-09-18 08:39 | REP ---
Right upper quadrant sonography: History: Elevated liver function studies. Comparison study: No comparison studies. Findings: Scanning through the right upper quadrant of the abdomen demonstrates a normal sized, thin-walled gallbladder without evidence of stone or polyp. Common bile duct is normal measuring 0.3 cm in greatest diameter. No focal liver lesion is seen. Liver size is normal. No pancreatic abnormality is observed. No right renal abnormality is seen. There is no evidence of ascites. The right kidney measures 10.2 x 5.3 x 4.4 cm. Impression: Negative right upper quadrant sonography. Signed by Hilario Aguilar MD 09/18/2016 08:30 A
[2016-09-18] MEDS ORDERED: MILKSUS PO (09:45)
[2016-09-18] MEDS ORDERED: MYLASUS16 PO (09:45)
[2016-09-18] MEDS ORDERED: MULTCAP11 PO (09:45)
[2016-09-18] MEDS ORDERED: NICO21DI5 TD (09:45)
[2016-09-18] MEDS ORDERED: MOTR200T44 PO (09:45)
[2016-09-18] MEDS ORDERED: OMEP20CA3 PO (09:54)
[2016-09-18] MEDS ORDERED: MONT10TA2 PO (09:56)
--- NOTE | 2016-09-18 16:10 | DS.PDOC ---
[facility] Discharge Summary Discharge Summary DATE OF ADMISSION: Sep 07, 2016 at 21:33 DATE OF DISCHARGE: Sep 18, 2016 at 10:30 DISCHARGE DIAGNOSES: 1. Unspecified bipolar disorder, current episode mixed. 2. Borderline personality disorder. 3. PTSD. REASON FOR ADMISSION: The patient was admitted due to experiencing continual psychiatric symptoms and difficulties complying with her outpatient medications. She was admitted due to mixed ammy with desires to end her own life after multiple stressors. CONSULTANTS INVOLVED: None TREATMENT AND PROGRESS ON THE UNIT : Legal status on admission: 9.39 Medication Management: The patient was discontinued on olanzapine and lithium due to her concerns of noncompliance ineffectual treatment. She was started on paliperidone 3 mg which appeared to control her symptoms well. After much discussion and thorough discussion of the risks and benefits patient consented to trying a long-acting Depo paliperidone. She is given 254 mg of paliperidone Deppe oh of which produced a very positive resolve the patient's mood and overall stress levels. She did experience some increased hot flashes with a combination of oral and Depo paliperidone. The oral was discontinued and the patient's hot flashes resolved. She retain the benefits of the Depo through her admission. She did require multiple when necessary's of hydroxyzine for anxiety. Psychotherapy: The patient attended groups fairly frequently Behavior: Irritable at times but as she began to resolve she became more amenable with a more appropriate affect Discharge planning: The patient was slated for discharge after her symptoms sufficiently resolved. She was having some concerns with her hot flashes and other symptoms such as fever. A routine CBC and CMP revealed elevated liver enzymes have [place] panel, HIV and liver ultrasound were ordered. However, these are yielded no information that will contribute to the diagnosis. She had no medications started that would interact with her liver. She decided that she wished to pursue this as an outpatient as she had been psychiatrically stable. Outpatient recommendations: Continue paliperidone Depo 254 mg IM on 10/12/2016 Pending studies on discharge: None DISCHARGE ASSESSMENT: 25-year-old woman with a history of bipolar disorder with mixed features presents in a mixed episode that responded well to Depo paliperidone due to her concerns of noncompliance as an outpatient MENTAL STATUS EXAMINATION ON DISCHARGE: General: Well dressed with good hygiene Speech: Spontaneous and fluid Thought processes: Linear and logical Thought content: Future orientated Abstract reasoning, and computation: Intact Description of associations: Intact Description of abnormal or psychotic thoughts:Denies any suicidal or homicidal ideation. Denies any auditory or visual hallucinations. Does not appear to be responding to internal stimuli. Does not appear to be endorsing any bizarre or paranoid ideation. Judgment: Fair Insight: Fair Orientation: Alert and orientated 3 Recent and remote memory: Intact Attention span and concentration: Intact Fund of knowledge: Adequate Mood: "Great" Affect: Euthymic with a full range PLAN/FOLLOWUP ARRANGEMENTS: The patient was sent to [facility] for further housing assistance. She had an appointment with her outpatient psychiatrist scheduled. It was recommended that she receive 254 mg of the Depo on 10/12/2016. She was recommended to follow up with her primary care to further work up her unspecified hot flashes and fevers. The social work team worked during the predischarge meeting in order to evaluate for further issues of lethality address them fully before discharge. They worked on safety planning with the patient's family members in order to ensure that the patient will have a safe and effective discharge. The amount of time spent in the coordination of care for this patient was approximately 50 minutes. Vital Signs/I&Os Vital Signs Date Time Temp Pulse Resp B/P Pulse Ox O2 Delivery O2 Flow Rate FiO2 09/18/16 06:19 99.1 89 16 148/76 09/13/16 06:11 Room Air Laboratory Data Microbiology Microbiology 09/14/16 Urine Culture - Final, Complete Medications Scheduled Carboxymethylcellulose Sodium (Refresh Tears) 0.5 % Micheal 0.5 % OU DAILY DRY EYES (Reported) Cyanocobalamin (Vitamin B12) 500 Mcg Tab 500 MCG PO DAILY NUTRITIONAL SUPPLEMENT (Reported) Fluticasone Propionate (Fluticasone Propionate) 50 Mcg/Act Spr 1 SPRAY NA DAILY CONGESTION (Reported) Hydroxyzine HCl (Hydroxyzine HCl) 25 Mg Tab 25 MG PO BID ANXIETY/AGITATION ( Reported) Montelukast Sodium (Montelukast Sodium) 10 Mg Tab #10 10 MG PO DAILY ALLERGIES Nicotine (Nicoderm Cq) 21 Mg/24 Hr Dis 21 MG TD DAILY NICOTINE WITHDRAWAL ( Reported) Omeprazole (Omeprazole) 20 Mg Cap #10 20 MG PO DAILY GERD Scheduled PRN (Multi Complete) 1 Cap Cap 1 CAP PO DAILY PRN PRN supplement (Reported) Aluminum/Magnesium/Simeth (Mylanta 200-200-20 mg/5Ml) 1 Nataliia Nataliia 30 ML PO Q4HP PRN PRN heartburn (Reported) Ibuprofen (Motrin Ib) 200 Mg Tab 200 MG PO Q6HP PRN PRN pain (Reported) Milk Of Magnesia (Milk of Magnesia) 1,200 Mg/15 Ml Nataliia 30 ML PO DAILYPRN PRN PRN BOWEL CARE/CONSTIPATION (Reported) Allergies Coded Allergies: Hydrocodone (Verified Allergy, Unknown, 09/07/16) [place] Blue FCF (Verified Adverse Reaction, Unknown, 09/07/16) HALLUCINATIONS Lisdexamfetamine (Verified Adverse Reaction, Unknown, 09/07/16) HALLUCINATIONS Red Dye (Verified Adverse Reaction, Unknown, 09/07/16) HALLUCINATIONS Trazodone (Unverified Adverse Reaction, Unknown, "numbness all over", 09/10) From report by Dr. Suazo Yellow Dye (Verified Adverse Reaction, Unknown, 09/07/16) HALLUCINATIONS GME ATTESTATION My preceptor for this patient encounter was physically present in the building during the encounter and was fully available. As needed, all aspects of the patient interview, examination, medical decision making process, and medical care plan development were reviewed and approved by the preceptor. Preceptor is aware and concurs with the plan as stated in the body of this note and will attest to such by his/her cosignature. CORNELIO SHARMA DO Sep 18, 2016 16:10
--- NOTE | 2016-09-20 16:00 | IPNPDOC ---
[facility] Progress Note Progress Note Patient reportedly came by after discharge and stated to the charge nurse that she had a stomach ache after eating excessively and exercising excessively as well. The patient wanted to know her test results from her admission. She asked reportedly if she needed to go to the ICU because of her vomiting. She was told to seek medical care if her symptoms persisted. Attempted to call twice to relay patient's results but no answer. They are normal. The patient was instructed that should any positive results come back she would be contacted but that she would need to follow up with her PCP at [facility] [place] for further work up of her medical symptoms. Vital Signs Vital Signs Date Time Temp Pulse Resp B/P Pulse Ox O2 Delivery O2 Flow Rate FiO2 09/18/16 06:19 99.1 89 16 148/76 Current Medications Current Medications Acetaminophen (Tylenol Tab) 650 mg Q6HP PRN PO HEADACHE or DISCOMFORT Last administered on 09/14/16 20:20; Start 09/07/16 at 21:45; Stop 09/17/16 at 22:49 ; Status DC Al Hydrox/Mg Hydrox/Simethicone (Mylanta) 30 ml Q4HP PRN PO HEARTBURN/ INDIGESTION Last administered on 09/17/16 22:12; Start 09/07/16 at 21:45; Stop 09/18/16 at 10:32; Status DC Artificial Tears (Akwa Tears) 2 drop DAILYPRN PRN OU DRY EYES; Start 09/07/16 at 21:45; Stop 09/18/16 at 10:32; Status DC Cetylpyridinium Chloride (Cepacol) 1 greg Q4HP PRN PO SORE THROAT/Cough; Start 09/17/16 at 22:45; Stop 10/17/16 at 22:44; Status Cancel Cyanocobalamin (Vitamin B12) 500 mcg DAILY PO Last administered on 09/18/16 08 :12; Start 09/08/16 at 09:00; Stop 09/18/16 at 10:32; Status DC Fluticasone Propionate (Flonase 0.05% Nasal [place]) 1 SPRAY IN EACH NOSTRIL DAILY NA Last administered on 09/18/16 08:12; Start 09/08/16 at 09:00; Stop at 10:32; Status DC Home Med (Med Rec Complete!) ASDIRECTED XX ; Start 09/07/16 at 20:45; Stop at 20:59; Status DC Hydroxyzine HCl (Atarax) 10 mg QHS PO ; Start 09/16/16 at 21:00; Stop 10/16/16 at 20:59; Status UNV Hydroxyzine HCl (Atarax) 25 mg BID PO Last administered on 09/16/16 23:37; Start 09/07/16 at 21:00; Stop 09/17/16 at 15:55; Status DC Hydroxyzine HCl (Atarax) 25 mg BID PRN PO anxiety Last administered on 17:49; Start 09/17/16 at 16:00; Stop 09/18/16 at 10:32; Status DC Ibuprofen (Advil) 400 mg Q6HP PRN PO PAIN Last administered on 09/18/16 08:13 ; Start 09/09/16 at 15:30; Stop 09/18/16 at 10:32; Status DC Anna Carbonate (Eskalith-Cr) 450 mg DAILY PO Last administered on 09/09/16 07:49; Start 09/08/16 at 09:00; Stop 09/09/16 at 15:17; Status DC Magnesium Hydroxide (Milk Of Magnesia) 30 ml DAILYPRN PRN PO CONSTIPATION Last administered on 09/17/16 15:27; Start 09/07/16 at 21:45; Stop 09/18/16 at 10:32 ; Status DC Montelukast Sodium (Singulair) 10 mg DAILY PO Last administered on 09/18/16 08 :12; Start 09/08/16 at 09:00; Stop 09/18/16 at 10:32; Status DC Multivitamins (Theragram-M) 1 tab DAILY PO Last administered on 09/18/16 08:12 ; Start 09/15/16 at 09:00; Stop 09/18/16 at 10:32; Status DC Nicotine (Nicoderm Cq 21mg) 1 patch DAILY TD Last administered on 09/17/16 09: 15; Start 09/08/16 at 09:00; Stop 09/18/16 at 10:32; Status DC Olanzapine (ZyPREXA) 5 mg QHS PRN PO ANXIETY/AGITATION Last administered on 00:26; Start 09/09/16 at 15:30; Stop 09/10/16 at 15:24; Status DC Olanzapine (ZyPREXA) 7.5 mg QHS PO Last administered on 09/07/16 22:49; Start 09/07/16 at 21:00; Stop 09/09/16 at 15:24; Status DC Omeprazole (PriLOSEC) 20 mg DAILY PO Last administered on 09/13/16 08:00; Start 09/08/16 at 09:00; Stop 09/18/16 at 10:32; Status DC Paliperidone (Invega) 3 mg QAM PO Last administered on 09/15/16 08:32; Start 09/09/16 at 09:00; Stop 09/16/16 at 15:25; Status DC Ramelteon (Rozerem) 4 mg QHS PO ; Start 09/11/16 at 21:00; Stop 09/11/16 at 21: 00; Status DC Ramelteon (Rozerem) 4 mg QHSP PRN PO insomnia Last administered on 09/14/16 21:35; Start 09/11/16 at 21:00; Stop 09/16/16 at 10:10; Status DC Ramelteon (Rozerem) 8 mg QHS PO Last administered on 09/10/16 20:52; Start 04/18 at 21:00; Stop 09/11/16 at 16:32; Status DC Allergies Coded Allergies: Hydrocodone (Verified Allergy, Unknown, 09/07/16) [place] Blue FCF (Verified Adverse Reaction, Unknown, 09/07/16) HALLUCINATIONS Lisdexamfetamine (Verified Adverse Reaction, Unknown, 09/07/16) HALLUCINATIONS Red Dye (Verified Adverse Reaction, Unknown, 09/07/16) HALLUCINATIONS Trazodone (Unverified Adverse Reaction, Unknown, "numbness all over", 09/10) From report by Dr. Suazo Yellow Dye (Verified Adverse Reaction, Unknown, 09/07/16) HALLUCINATIONS GME ATTESTATION My preceptor for this patient encounter was physically present in the building during the encounter and was fully available. As needed, all aspects of the patient interview, examination, medical decision making process, and medical care plan development were reviewed and approved by the preceptor. Preceptor is aware and concurs with the plan as stated in the body of this note and will attest to such by his/her cosignature. CORNELIO SHARMA DO Sep 20, 2016 16:00
== END 2016-09-18 10:30 | disposition home or self-care (01) | DRG 885 ==
LOC: M ED 17:49 → M ED INP 21:33 → M PSY 22:40
PROVIDERS: ADMIT Psychiatry & Neurology Psychiatry; ATTEND Psychiatry & Neurology Child & Adolescent Psychiatry
DX: F31.60 Bipolar disorder, current episode mixed, unspecified (principal); F60.3 Borderline personality disorder; F43.10 Post-traumatic stress disorder, unspecified; Z91.19 Patient's noncompliance with other medical treatment and regimen; Z79.899 Other long term (current) drug therapy; Z88.8 Allergy status to other drugs, medicaments and biological substances; F17.210 Nicotine dependence, cigarettes, uncomplicated; K21.9 Gastro-esophageal reflux disease without esophagitis

== ENCOUNTER → 2016-09-26 | Outpatient (REF) | payer MEDICARE ==
[~2016-09-26] MED LIST changes: +MILKSUS PO; +MOTR200T44 PO; +MULTCAP11 PO; +MYLASUS16 PO; +NICO21DI5 TD
[2016-09-27 11:42] LABS: CONTROL LINE UCG INT CTR LINE PRESENT
[2016-09-27 12:01] LABS: ANION GAP 10 MEQ/L (8-16); BLOOD UREA NITROGEN 14 MG/DL (7-18); CALCIUM LEVEL 9.3 MG/DL (8.5-10.1); CARBON DIOXIDE LEVEL 24 MEQ/L (21-32); CHLORIDE LEVEL 104 MEQ/L (98-107); CREATININE FOR GFR 0.89 MG/DL (0.55-1.02); GLOMERULAR FILTRATION RATE > 60.0 (>60); GLUCOSE, FASTING 84 MG/DL (70-105); POTASSIUM SERUM 4.2 MEQ/L (3.5-5.1); SODIUM LEVEL 138 MEQ/L (136-145)
[2016-09-27 12:15] LABS: LUTEINIZING HORMONE 2.3 mIU/mL; PROLACTIN 57.4 NG/ML
== END ==
LOC: M SFHCCLAY 15:18
PROVIDERS: ATTEND Family Medicine
DX: N91.1 Secondary amenorrhea (principal); N80.9 Endometriosis, unspecified
CPT/HCPCS: 80048; 83001; 83002; 84146; 84702; 84703; G0463

== ENCOUNTER → 2016-10-02 | Outpatient (REF) ==
--- NOTE | 2016-10-02 12:31 | REP ---
LUMBAR SPINE, THREE VIEWS: HISTORY: Degenerative disc disease. The patient is status post L1 kyphoplasty. There is no acute fracture. There is an old compression fracture of the L1 vertebral body with minimal height loss. There is no subluxation. The L1-2, L2-3, L4-5 intervertebral discs are decreased in height consistent with disc degeneration. There is slight loss of the normal lordotic curve. IMPRESSION: Degenerative change as described above. Signed by Naren Gurrola MD 10/02/2016 12:32 P
== END ==
LOC: M SMT 12:05
PROVIDERS: ATTEND Internal Medicine
DX: M51.36 Other intervertebral disc degeneration, lumbar region (principal)

== ENCOUNTER → 2016-10-03 | Outpatient (CLI) | payer MEDICARE ==
[~2016-10-03] MED LIST changes: +GASTROGRAFIN SOLUTION 30ML (Q9963) As Ordered ONE; +ISOVUE-370 76% 100ML VIAL (Q9967) As Ordered ONE
--- NOTE | 2016-10-03 17:00 | REP ---
CT ABDOMEN: REASON: Amenorrhea. COMPARISON: None. CONTRAST: 100 mL [id number]. The lung bases are clear with the exception of minimal subsegmental atelectatic changes. The liver, gallbladder, spleen, pancreas, adrenal glands, and kidneys are within normal limits. The abdominal aorta and paraaortic regions are within normal limits. The bowel loops and their mesenteries are within normal limits. There is no free fluid or free air in the abdomen. CT PELVIS: The pelvic bowel loops and their mesenteries are within normal limits. There is no free fluid or free air. There is no pelvic adenopathy. There is potential low density in the lower uterine segment extremely difficult to evaluate by CT. This could be a normal function of differential contrast enhancement or represent a different process. Bone window technique throughout the examination shows the osseous structures to be within normal limits. IMPRESSION: Potential finding involving the lower uterine segments/cervix. Followup with pelvic ultrasonography is recommended. Signed by Joby Gutierrez DO 10/04/2016 01:49 P
== END ==
LOC: M RAD 13:31
PROVIDERS: ATTEND Family Medicine
DX: N91.1 Secondary amenorrhea (principal); N80.9 Endometriosis, unspecified
CPT/HCPCS: 74177; Q9963; Q9967

== ENCOUNTER → 2017-08-26 | Outpatient (CLI) | payer MEDICARE, MEDICAID, OTHER | LOC: M EKG 10:29 | DX: R42 Dizziness and giddiness (principal) | CPT/HCPCS: 93225 ==

== ENCOUNTER → 2017-09-30 | Outpatient (CLI) | payer MEDICARE, MEDICAID | LOC: M SLEEP 09:09 | DX: R55 Syncope and collapse (principal) | CPT/HCPCS: 95819 ==

== ENCOUNTER 2017-10-12 23:43 | Inpatient (IN) | payer MEDICARE, MEDICAID ==
[2017-10-13 00:06] LABS: BASO # 0.1 10^3/uL (0.0-0.2); BASO % 0.6 % (0.0-1.0); EOS % 0.3 % (0.0-3.0); HEMATOCRIT 33.8 % (36.0-47.0); HEMOGLOBIN 12.8 g/dl (12.0-15.5); IMMATURE GRANULOCYTE % 0.3 % (0-3.0); LYMPH # 2.5 10^3/uL (1.5-6.5); LYMPH % 26.3 % (24.0-44.0); MEAN CORPUSCULAR HEMOGLOBIN 31.2 pg (27.0-33.0); MEAN CORPUSCULAR VOLUME 82.4 fl (80.0-96.0); MONO # 0.8 10^3/uL (0.0-0.8); MONO % 8.4 % (0.0-5.0); NEUTROPHILS # 6.1 10^3/uL (1.8-7.7); NEUTROPHILS % 64.1 % (36.0-66.0); PLATELET COUNT, AUTOMATED 444 10^3/uL (150-450); WHITE BLOOD COUNT 9.5 10^3/uL (4.0-10.0)
[2017-10-13 00:19] LABS: CONTROL LINE HCG INT CTR LINE PRESENT; HCG, SERUM QUALITATIVE NEGATIVE (NEGATIVE)
[2017-10-13 00:23] LABS: AMMONIA 23 uMOL/L (<32)
[2017-10-13 00:33] LABS: ALBUMIN 4.4 GM/DL (3.2-5.2); ALKALINE PHOSPHATASE 90 U/L (45-117); ALT/SGPT 16 U/L (12-78); AST/SGOT 17 U/L (7-37); BILIRUBIN,DIRECT 0.2 MG/DL (0.0-0.2); BILIRUBIN,TOTAL 0.6 MG/DL (0.2-1.0); BLOOD UREA NITROGEN 6 MG/DL (7-18); CALCIUM LEVEL 9.6 MG/DL (8.5-10.1); CARBON DIOXIDE LEVEL 39 MEQ/L (21-32); CHLORIDE LEVEL 75 MEQ/L (98-107); CPK CREATINE PHOSPHOKINASE 78 U/L (26-192); CREATININE FOR GFR 0.97 MG/DL (0.55-1.30); ETHYL ALCOHOL (ETHANOL) < 0.003 % (0.000-0.010); FREE THYROXINE INDEX 5.2 % (1.3-4.8); GLOMERULAR FILTRATION RATE > 60.0 (>60); GLUCOSE, FASTING 129 MG/DL (70-100); LIPASE 49 U/L (73-393); SALICYLATE LEVEL < 1.7 MG/DL (5.0-30.0); T UPTAKE 34 % (30-39); THYROXINE (T4) 15.2 UG/DL (4.5-12.0); TOTAL PROTEIN 8.4 GM/DL (6.4-8.2)
[2017-10-13 00:41] LABS: ACETAMINOPHEN LEVEL < 2.0 UG/ML (10.0-30.0); ANION GAP 9 MEQ/L (8-16); POTASSIUM SERUM 2.3 MEQ/L (3.5-5.1); SODIUM LEVEL 123 MEQ/L (136-145)
[2017-10-13 00:47] LABS: AMPHETAMINES LEVEL URINE NEGATIVE (NEGATIVE); BARBITURATES URINE NEGATIVE (NEGATIVE); BENZODIAZEPINES URINE NEGATIVE (NEGATIVE); CANNABINOIDS URINE NEGATIVE (NEGATIVE); COCAINE METABOLITE URINE NEGATIVE (NEGATIVE); METHADONE URINE NEGATIVE (NEGATIVE); OPIATES URINE NEGATIVE (NEGATIVE); PHENCYCLIDINE URINE NEGATIVE (NEGATIVE)
[2017-10-13 00:51] LABS: MEAN CORPUSCULAR HGB CONC 37.9 g/dl (32.0-36.5)
[2017-10-13 00:52] LABS: POS COUNT POS FLAG
[2017-10-13 01:07] LABS: BEDSIDE GLUCOSE 109 MG/DL (70-105)
[2017-10-13] MEDS ORDERED: POTASSIUM CHLORIDE INJ 40 MEQ in KCL 40MEQ in NS 1000ML 1,000 ML IV (01:23)
[2017-10-13 01:24] LABS: OSMOLALITY URINE 173 MOSM/KG (500-800)
[2017-10-13 01:29] LABS: CREATININE,RANDOM URINE 91.1 MG/DL; SODIUM,RANDOM URINE 25 MEQ/L
[2017-10-13 01:30] LABS: OSMOLALITY SERUM 260 MOSM/KG (275-295)
[2017-10-13 01:49] LABS: TROPONIN I < 0.02 NG/ML (< 0.10)
[2017-10-13 01:50] LABS: PHOSPHORUS LEVEL 2.5 MG/DL (2.5-4.9)
[2017-10-13 01:51] LABS: CK-MB VALUE MASS < 1.0 NG/ML (<3.6); MAGNESIUM LEVEL 1.9 MG/DL (1.8-2.4); MB/CK RELATIVE INDEX 1.28 (< OR =4)
[2017-10-13 02:43] LABS: CSF RBC < 2 10^3/uL (<2)
[2017-10-13 02:45] LABS: APPEARANCE, CSF CLEAR (CLEAR); COLOR, CSF COLORLESS (COLORLESS); CSF DIFF IF INDICATED? NO (NO); CSF RBC < 2 10^3/uL (<2); CSF TUBE# CELL CNT TUBE 2; CSF WBC 1 /uL (0-10)
[2017-10-13 02:46] LABS: APPEARANCE, CSF CLEAR (CLEAR); COLOR, CSF COLORLESS (COLORLESS); CSF DIFF IF INDICATED? NO (NO); CSF TUBE# CELL CNT TUBE 4; CSF WBC < 1 /uL (0-10)
[2017-10-13] MEDS: KCL 10MEQ/100ML SWI (KRUN) 10 MEQ in APPROPRIATE DILUENT 1 EA IV ×4 (02:50→07:22)
[2017-10-13 03:00] LABS: CSF TUBE# GLU TUBE 1; CSF TUBE# TP TUBE 1; GLUCOSE CSF 61 MG/DL (40-75); TOTAL PROTEIN,CSF 43.3 MG/DL (15-45)
[2017-10-13 04:10] LABS: ANION GAP 10 MEQ/L (8-16); BLOOD UREA NITROGEN 7 MG/DL (7-18); CALCIUM LEVEL 9.5 MG/DL (8.5-10.1); CARBON DIOXIDE LEVEL 38 MEQ/L (21-32); CHLORIDE LEVEL 77 MEQ/L (98-107); CREATININE FOR GFR 1.03 MG/DL (0.55-1.30); GLOMERULAR FILTRATION RATE > 60.0 (>60); GLUCOSE, FASTING 129 MG/DL (70-100); MAGNESIUM LEVEL 1.9 MG/DL (1.8-2.4); PHOSPHORUS LEVEL 2.4 MG/DL (2.5-4.9); SODIUM LEVEL 125 MEQ/L (136-145)
[2017-10-13 04:23] LABS: POTASSIUM SERUM 1.8 MEQ/L (3.5-5.1)
[2017-10-13] MEDS: ONDANSETRON 4MG/2ML VIAL (J2405) IV (04:49)
[2017-10-13] MEDS: LORazepam 2 MG/ML VIAL (J2060) IV (04:57)
[2017-10-13] MEDS ORDERED: POTASSIUM CHLORIDE 10 MEQ SR TABLET As Ordered (04:58)
[2017-10-13] MEDS: POTASSIUM CHLORIDE 10 MEQ SR TABLET PO ×4 (05:06→12:58)
[2017-10-13 08:08] LABS: CORTISOL BASELINE 49.1 UG/DL (4.3-22.4)
[2017-10-13 09:13] LABS: ANION GAP 9 MEQ/L (8-16); BLOOD UREA NITROGEN 6 MG/DL (7-18); CALCIUM LEVEL 9.6 MG/DL (8.5-10.1); CARBON DIOXIDE LEVEL 39 MEQ/L (21-32); CHLORIDE LEVEL 78 MEQ/L (98-107); CREATININE FOR GFR 0.98 MG/DL (0.55-1.30); GLOMERULAR FILTRATION RATE > 60.0 (>60); GLUCOSE, FASTING 116 MG/DL (70-100); PHOSPHORUS LEVEL 4.1 MG/DL (2.5-4.9); SODIUM LEVEL 126 MEQ/L (136-145)
[2017-10-13 09:15] LABS: POTASSIUM SERUM 2.6 MEQ/L (3.5-5.1)
[2017-10-13] MEDS: KCL 40MEQ in NS 1000ML 1,000 ML IV ×2 (09:28→20:07)
[2017-10-13] MEDS: ENOXAPARIN 40 MG/0.4 ML SYRINGE (J1650) SC (09:29)
[2017-10-13 10:44] LABS: ANION GAP 9 MEQ/L (8-16); BLOOD UREA NITROGEN 5 MG/DL (7-18); CALCIUM LEVEL 9.5 MG/DL (8.5-10.1); CARBON DIOXIDE LEVEL 37 MEQ/L (21-32); CHLORIDE LEVEL 80 MEQ/L (98-107); CREATININE FOR GFR 1.02 MG/DL (0.55-1.30); GLOMERULAR FILTRATION RATE > 60.0 (>60); GLUCOSE, FASTING 104 MG/DL (70-100); MAGNESIUM LEVEL 1.9 MG/DL (1.8-2.4); PHOSPHORUS LEVEL 3.3 MG/DL (2.5-4.9); POTASSIUM SERUM 2.6 MEQ/L (3.5-5.1); SODIUM LEVEL 126 MEQ/L (136-145)
[2017-10-13 11:00] LABS: ALBUMIN 4.2 GM/DL (3.2-5.2); ALBUMIN/GLOBULIN RATIO 1.17 (1.00-1.93); ALKALINE PHOSPHATASE 85 U/L (45-117); ALT/SGPT 15 U/L (12-78); AST/SGOT 16 U/L (7-37); BILIRUBIN,DIRECT 0.1 MG/DL (0.0-0.2); BILIRUBIN,TOTAL 0.5 MG/DL (0.2-1.0); TOTAL PROTEIN 7.8 GM/DL (6.4-8.2)
[2017-10-13] MEDS: IBUPROFEN 600 MG TAB PO ×2 (11:16→20:15)
[2017-10-13 14:25] LABS: ANION GAP 6 MEQ/L (8-16); BLOOD UREA NITROGEN 5 MG/DL (7-18); CALCIUM LEVEL 9.3 MG/DL (8.5-10.1); CARBON DIOXIDE LEVEL 37 MEQ/L (21-32); CHLORIDE LEVEL 86 MEQ/L (98-107); CREATININE FOR GFR 1.02 MG/DL (0.55-1.30); GLOMERULAR FILTRATION RATE > 60.0 (>60); GLUCOSE, FASTING 102 MG/DL (70-100); POTASSIUM SERUM 3.1 MEQ/L (3.5-5.1); SODIUM LEVEL 129 MEQ/L (136-145)
[2017-10-13 14:30] LABS: PHOSPHORUS LEVEL 2.4 MG/DL (2.5-4.9)
[2017-10-13] MEDS ORDERED: POTASSIUM CHLORIDE 10 MEQ SR TABLET PO (15:00)
[2017-10-13 19:17] LABS: PHOSPHORUS LEVEL 2.2 MG/DL (2.5-4.9)
[2017-10-13 19:17] LABS: MAGNESIUM LEVEL 1.9 MG/DL (1.8-2.4)
[2017-10-13 19:18] LABS: ANION GAP 7 MEQ/L (8-16); BLOOD UREA NITROGEN 3 MG/DL (7-18); CALCIUM LEVEL 9.2 MG/DL (8.5-10.1); CARBON DIOXIDE LEVEL 32 MEQ/L (21-32); CHLORIDE LEVEL 92 MEQ/L (98-107); CREATININE FOR GFR 0.96 MG/DL (0.55-1.30); GLOMERULAR FILTRATION RATE > 60.0 (>60); GLUCOSE, FASTING 112 MG/DL (70-100); POTASSIUM SERUM 3.6 MEQ/L (3.5-5.1); SODIUM LEVEL 131 MEQ/L (136-145)
[2017-10-13] MEDS: OLANZapine 2.5MG TABLET PO (20:15)
[2017-10-13 22:59] LABS: BLOOD UREA NITROGEN 3 MG/DL (7-18); CALCIUM LEVEL 8.9 MG/DL (8.5-10.1); CARBON DIOXIDE LEVEL 30 MEQ/L (21-32); CHLORIDE LEVEL 125 MEQ/L (98-107); CREATININE FOR GFR 0.83 MG/DL (0.55-1.30); GLUCOSE, FASTING 91 MG/DL (70-100); MAGNESIUM LEVEL 1.7 MG/DL (1.8-2.4); PHOSPHORUS LEVEL 1.8 MG/DL (2.5-4.9)
[2017-10-13 23:09] LABS: POTASSIUM SERUM 4.3 MEQ/L (3.5-5.1); SODIUM LEVEL 133 MEQ/L (136-145)
[2017-10-14 02:49] LABS: ANION GAP 3 MEQ/L (8-16); BLOOD UREA NITROGEN 2 MG/DL (7-18); CALCIUM LEVEL 8.6 MG/DL (8.5-10.1); CARBON DIOXIDE LEVEL 29 MEQ/L (21-32); CHLORIDE LEVEL 105 MEQ/L (98-107); CREATININE FOR GFR 0.78 MG/DL (0.55-1.30); GLOMERULAR FILTRATION RATE > 60.0 (>60); GLUCOSE, FASTING 90 MG/DL (70-100); MAGNESIUM LEVEL 1.9 MG/DL (1.8-2.4); PHOSPHORUS LEVEL 1.7 MG/DL (2.5-4.9); POTASSIUM SERUM 4.6 MEQ/L (3.5-5.1); SODIUM LEVEL 137 MEQ/L (136-145)
[2017-10-14 04:55] LABS: BASO % 0.7 % (0.0-1.0); EOS # 0.1 10^3/uL (0.0-0.50); EOS % 1.2 % (0.0-3.0); HEMATOCRIT 26.6 % (36.0-47.0); LYMPH # 3.6 10^3/uL (1.5-6.5); LYMPH % 59.9 % (24.0-44.0); MEAN CORPUSCULAR HEMOGLOBIN 31.6 pg (27.0-33.0); MEAN CORPUSCULAR HGB CONC 35.7 g/dl (32.0-36.5); MEAN CORPUSCULAR VOLUME 88.4 fl (80.0-96.0); MONO # 0.4 10^3/uL (0.0-0.8); MONO % 7.1 % (0.0-5.0); NEUTROPHILS # 1.9 10^3/uL (1.8-7.7); NEUTROPHILS % 31.1 % (36.0-66.0); PLATELET COUNT, AUTOMATED 339 10^3/uL (150-450); RED BLOOD COUNT 3.01 10^6/uL (4.00-5.40); RED CELL DISTRIBUTION WIDTH 11.5 % (11.5-14.5)
[2017-10-14] MEDS: KCL 40MEQ in NS 1000ML 1,000 ML IV (05:11)
[2017-10-14 05:13] LABS: HEMOGLOBIN 9.5 g/dl (12.0-15.5)
[2017-10-14 05:17] LABS: ALBUMIN/GLOBULIN RATIO 0.94 (1.00-1.93); ALKALINE PHOSPHATASE 67 U/L (45-117); ALT/SGPT 12 U/L (12-78); ANION GAP 2 MEQ/L (8-16); AST/SGOT 8 U/L (7-37); BILIRUBIN,TOTAL 0.3 MG/DL (0.2-1.0); BLOOD UREA NITROGEN 2 MG/DL (7-18); CALCIUM LEVEL 8.4 MG/DL (8.5-10.1); CARBON DIOXIDE LEVEL 30 MEQ/L (21-32); CHLORIDE LEVEL 107 MEQ/L (98-107); CREATININE FOR GFR 0.79 MG/DL (0.55-1.30); GLOMERULAR FILTRATION RATE > 60.0 (>60); GLUCOSE, FASTING 85 MG/DL (70-100); MAGNESIUM LEVEL 1.8 MG/DL (1.8-2.4); POTASSIUM SERUM 4.8 MEQ/L (3.5-5.1); SODIUM LEVEL 139 MEQ/L (136-145); TOTAL PROTEIN 6.2 GM/DL (6.4-8.2)
[2017-10-14] MEDS: IBUPROFEN 600 MG TAB PO ×2 (06:59→16:05)
[2017-10-14] MEDS: ENOXAPARIN 40 MG/0.4 ML SYRINGE (J1650) SC (08:59)
[2017-10-14] MEDS: OLANZapine 2.5MG TABLET PO ×2 (08:59→21:33)
[2017-10-14] MEDS: ACETAMINOPHEN 500 MG TAB PO (09:00)
[2017-10-14] MEDS ORDERED: SLF 3 ML SYR IV (11:45)
[2017-10-14] MEDS: SLF 3 ML SYR IV ×2 (13:53→21:33)
[2017-10-15] MEDS: ACETAMINOPHEN 500 MG TAB PO ×2 (05:38→12:24)
[2017-10-15] MEDS: SLF 3 ML SYR IV ×2 (05:38→14:21)
[2017-10-15] MEDS: IBUPROFEN 600 MG TAB PO ×2 (06:17→14:21)
[2017-10-15 06:26] LABS: BASO # 0.1 10^3/uL (0.0-0.2); BASO % 0.7 % (0.0-1.0); EOS # 0.2 10^3/uL (0.0-0.50); EOS % 2.3 % (0.0-3.0); HEMATOCRIT 30.6 % (36.0-47.0); HEMOGLOBIN 10.6 g/dl (12.0-15.5); IMMATURE GRANULOCYTE % 0.2 % (0-3.0); LYMPH # 3.9 10^3/uL (1.5-6.5); LYMPH % 47.7 % (24.0-44.0); MEAN CORPUSCULAR HEMOGLOBIN 31.5 pg (27.0-33.0); MEAN CORPUSCULAR HGB CONC 34.6 g/dl (32.0-36.5); MEAN CORPUSCULAR VOLUME 90.8 fl (80.0-96.0); MONO # 0.5 10^3/uL (0.0-0.8); MONO % 6.2 % (0.0-5.0); NEUTROPHILS # 3.5 10^3/uL (1.8-7.7); NEUTROPHILS % 42.9 % (36.0-66.0); PLATELET COUNT, AUTOMATED 383 10^3/uL (150-450); RED BLOOD COUNT 3.37 10^6/uL (4.00-5.40); RED CELL DISTRIBUTION WIDTH 11.6 % (11.5-14.5); WHITE BLOOD COUNT 8.2 10^3/uL (4.0-10.0)
[2017-10-15 06:48] LABS: ALBUMIN 3.3 GM/DL (3.2-5.2); ALBUMIN/GLOBULIN RATIO 0.94 (1.00-1.93); ALKALINE PHOSPHATASE 72 U/L (45-117); ALT/SGPT 14 U/L (12-78); ANION GAP 5 MEQ/L (8-16); AST/SGOT 8 U/L (7-37); BILIRUBIN,TOTAL 0.2 MG/DL (0.2-1.0); BLOOD UREA NITROGEN 5 MG/DL (7-18); CALCIUM LEVEL 8.9 MG/DL (8.5-10.1); CARBON DIOXIDE LEVEL 27 MEQ/L (21-32); CHLORIDE LEVEL 109 MEQ/L (98-107); CREATININE FOR GFR 0.82 MG/DL (0.55-1.30); GLOMERULAR FILTRATION RATE > 60.0 (>60); GLUCOSE, FASTING 84 MG/DL (70-100); MAGNESIUM LEVEL 1.8 MG/DL (1.8-2.4); POTASSIUM SERUM 3.9 MEQ/L (3.5-5.1); SODIUM LEVEL 141 MEQ/L (136-145); TOTAL PROTEIN 6.8 GM/DL (6.4-8.2)
[2017-10-15] MEDS: ENOXAPARIN 40 MG/0.4 ML SYRINGE (J1650) SC (09:02)
[2017-10-15] MEDS: OLANZapine 2.5MG TABLET PO (09:02)
[2017-10-15] MEDS: ONDANSETRON 4MG/2ML VIAL (J2405) IV (09:18)
[2017-10-15] MEDS: SUMAtriptan SUCCINATE 25 MG TAB PO (09:18)
[2017-10-15 18:06] LABS: PHOSPHORUS LEVEL 2.6 MG/DL (2.5-4.9)
[2017-10-15] MEDS: ONDANSETRON 4 MG TAB (S0181) PO (18:13)
[2017-10-15] MEDS: lamoTRIgine 100MG TAB PO (18:13)
[2017-10-15] MEDS: DESIPRAMINE 25 MG TAB PO (20:05)
[2017-10-16] MEDS: IBUPROFEN 600 MG TAB PO ×2 (01:15→20:17)
[2017-10-16 06:27] LABS: BASO % 0.5 % (0.0-1.0); EOS # 0.1 10^3/uL (0.0-0.50); EOS % 0.9 % (0.0-3.0); HEMATOCRIT 28.6 % (36.0-47.0); HEMOGLOBIN 10.1 g/dl (12.0-15.5); IMMATURE GRANULOCYTE % 0.1 % (0-3.0); LYMPH # 3.2 10^3/uL (1.5-6.5); LYMPH % 39.4 % (24.0-44.0); MEAN CORPUSCULAR HEMOGLOBIN 31.4 pg (27.0-33.0); MEAN CORPUSCULAR HGB CONC 35.3 g/dl (32.0-36.5); MEAN CORPUSCULAR VOLUME 88.8 fl (80.0-96.0); MONO # 0.5 10^3/uL (0.0-0.8); MONO % 5.6 % (0.0-5.0); NEUTROPHILS # 4.3 10^3/uL (1.8-7.7); NEUTROPHILS % 53.5 % (36.0-66.0); PLATELET COUNT, AUTOMATED 376 10^3/uL (150-450); RED BLOOD COUNT 3.22 10^6/uL (4.00-5.40); RED CELL DISTRIBUTION WIDTH 11.2 % (11.5-14.5); WHITE BLOOD COUNT 8.1 10^3/uL (4.0-10.0)
[2017-10-16 06:48] LABS: ALBUMIN 3.3 GM/DL (3.2-5.2); ALBUMIN/GLOBULIN RATIO 0.94 (1.00-1.93); ALKALINE PHOSPHATASE 65 U/L (45-117); ALT/SGPT 13 U/L (12-78); ANION GAP 6 MEQ/L (8-16); AST/SGOT 9 U/L (7-37); BILIRUBIN,TOTAL 0.3 MG/DL (0.2-1.0); BLOOD UREA NITROGEN 6 MG/DL (7-18); CALCIUM LEVEL 9.1 MG/DL (8.5-10.1); CARBON DIOXIDE LEVEL 26 MEQ/L (21-32); CHLORIDE LEVEL 108 MEQ/L (98-107); CREATININE FOR GFR 0.84 MG/DL (0.55-1.30); GLOMERULAR FILTRATION RATE > 60.0 (>60); GLUCOSE, FASTING 86 MG/DL (70-100); MAGNESIUM LEVEL 1.8 MG/DL (1.8-2.4); POTASSIUM SERUM 3.9 MEQ/L (3.5-5.1); SODIUM LEVEL 140 MEQ/L (136-145); TOTAL PROTEIN 6.8 GM/DL (6.4-8.2)
[2017-10-16] MEDS: ENOXAPARIN 40 MG/0.4 ML SYRINGE (J1650) SC (08:31)
[2017-10-16] MEDS: ONDANSETRON 4 MG TAB (S0181) PO (08:31)
[2017-10-16] MEDS: lamoTRIgine 100MG TAB PO (08:32)
[2017-10-16] MEDS: MAGNESIUM OXIDE 400 MG TAB (MAG-OX) PO ×2 (08:32→20:16)
[2017-10-16] MEDS: NEPHRO-VIT TAB (NEPHROCAPS) PO (09:18)
[2017-10-16] MEDS: SUMAtriptan SUCCINATE 25 MG TAB PO ×2 (09:18→12:15)
[2017-10-16] MEDS: DESIPRAMINE 25 MG TAB PO (20:16)
[2017-10-16] MEDS: ONDANSETRON 4 MG ORAL DISINTEGRATING TAB (Q0162 PER 1MG) SL (20:16)
[2017-10-16] MEDS: MAALOX 30 ML SUSP *UDC PO (20:40)
[2017-10-16] MEDS: PANTOPRAZOLE 40MG TAB (PROTONIX) PO (20:40)
[2017-10-17] MEDS: SUMAtriptan SUCCINATE 25 MG TAB PO ×2 (01:34→20:09)
[2017-10-17 06:23] LABS: BASO # 0.1 10^3/uL (0.0-0.2); BASO % 0.7 % (0.0-1.0); EOS # 0.1 10^3/uL (0.0-0.50); EOS % 0.9 % (0.0-3.0); HEMATOCRIT 29.6 % (36.0-47.0); HEMOGLOBIN 10.4 g/dl (12.0-15.5); IMMATURE GRANULOCYTE % 0.3 % (0-3.0); LYMPH # 2.6 10^3/uL (1.5-6.5); LYMPH % 36.6 % (24.0-44.0); MEAN CORPUSCULAR HGB CONC 35.1 g/dl (32.0-36.5); MEAN CORPUSCULAR VOLUME 88.1 fl (80.0-96.0); MONO # 0.5 10^3/uL (0.0-0.8); MONO % 6.7 % (0.0-5.0); NEUTROPHILS # 3.8 10^3/uL (1.8-7.7); NEUTROPHILS % 54.8 % (36.0-66.0); PLATELET COUNT, AUTOMATED 402 10^3/uL (150-450); RED BLOOD COUNT 3.36 10^6/uL (4.00-5.40); RED CELL DISTRIBUTION WIDTH 11.3 % (11.5-14.5)
[2017-10-17 06:52] LABS: ALBUMIN 3.4 GM/DL (3.2-5.2); ALBUMIN/GLOBULIN RATIO 0.92 (1.00-1.93); ALKALINE PHOSPHATASE 65 U/L (45-117); ALT/SGPT 13 U/L (12-78); ANION GAP 6 MEQ/L (8-16); AST/SGOT 8 U/L (7-37); BILIRUBIN,TOTAL 0.3 MG/DL (0.2-1.0); BLOOD UREA NITROGEN 7 MG/DL (7-18); CALCIUM LEVEL 9.1 MG/DL (8.5-10.1); CARBON DIOXIDE LEVEL 30 MEQ/L (21-32); CHLORIDE LEVEL 104 MEQ/L (98-107); GLOMERULAR FILTRATION RATE > 60.0 (>60); GLUCOSE, FASTING 91 MG/DL (70-100); POTASSIUM SERUM 3.7 MEQ/L (3.5-5.1); SODIUM LEVEL 140 MEQ/L (136-145); TOTAL PROTEIN 7.1 GM/DL (6.4-8.2)
[2017-10-17] MEDS: lamoTRIgine 100MG TAB PO (08:00)
[2017-10-17] MEDS: PANTOPRAZOLE 40MG TAB (PROTONIX) PO (08:00)
[2017-10-17] MEDS: ONDANSETRON 4 MG ORAL DISINTEGRATING TAB (Q0162 PER 1MG) SL ×2 (08:00→18:29)
[2017-10-17] MEDS: MAGNESIUM OXIDE 400 MG TAB (MAG-OX) PO ×2 (08:01→20:04)
[2017-10-17] MEDS: NEPHRO-VIT TAB (NEPHROCAPS) PO (08:01)
[2017-10-17] MEDS: ENOXAPARIN 40 MG/0.4 ML SYRINGE (J1650) SC (08:02)
[2017-10-17] MEDS: IBUPROFEN 600 MG TAB PO ×2 (08:13→18:29)
[2017-10-17] MEDS ORDERED: PANTOPRAZOLE 40MG TAB (PROTONIX) PO (09:00)
[2017-10-17] MEDS: NS 1,000 ML IV ×2 (11:49→20:09)
[2017-10-17] MEDS: ACETAMINOPHEN 500 MG TAB PO (12:50)
[2017-10-17] MEDS: dexameTHASONE 20 MG/5 ML VIAL (J1100) IV (14:37)
[2017-10-17] MEDS: PROCHLORPERAZINE 10 MG/2 ML VIAL (J0780) IV (14:38)
[2017-10-17] MEDS: diphenhydrAMINE INJ 50MG/ML VIAL (J1200) IV (14:38)
[2017-10-17] MEDS: DESIPRAMINE 25 MG TAB PO (20:05)
[2017-10-18] MEDS: NS 1,000 ML IV ×2 (06:06→18:21)
[2017-10-18] MEDS: IBUPROFEN 600 MG TAB PO ×2 (06:07→16:04)
[2017-10-18 06:11] LABS: BASO % 0.1 % (0.0-1.0); HEMATOCRIT 30.9 % (36.0-47.0); HEMOGLOBIN 10.7 g/dl (12.0-15.5); IMMATURE GRANULOCYTE % 0.4 % (0-3.0); LYMPH # 2.5 10^3/uL (1.5-6.5); LYMPH % 24.6 % (24.0-44.0); MEAN CORPUSCULAR HEMOGLOBIN 30.9 pg (27.0-33.0); MEAN CORPUSCULAR HGB CONC 34.6 g/dl (32.0-36.5); MEAN CORPUSCULAR VOLUME 89.3 fl (80.0-96.0); MONO # 0.5 10^3/uL (0.0-0.8); MONO % 5.2 % (0.0-5.0); NEUTROPHILS % 69.7 % (36.0-66.0); PLATELET COUNT, AUTOMATED 482 10^3/uL (150-450); RED BLOOD COUNT 3.46 10^6/uL (4.00-5.40); RED CELL DISTRIBUTION WIDTH 11.4 % (11.5-14.5)
[2017-10-18 06:34] LABS: ALBUMIN 3.6 GM/DL (3.2-5.2); ALKALINE PHOSPHATASE 61 U/L (45-117); ALT/SGPT 16 U/L (12-78); ANION GAP 10 MEQ/L (8-16); AST/SGOT 7 U/L (7-37); BILIRUBIN,TOTAL 0.3 MG/DL (0.2-1.0); BLOOD UREA NITROGEN 9 MG/DL (7-18); CALCIUM LEVEL 8.9 MG/DL (8.5-10.1); CARBON DIOXIDE LEVEL 23 MEQ/L (21-32); CHLORIDE LEVEL 105 MEQ/L (98-107); CREATININE FOR GFR 1.19 MG/DL (0.55-1.30); GLOMERULAR FILTRATION RATE 57.9 (>60); GLUCOSE, FASTING 100 MG/DL (70-100); MAGNESIUM LEVEL 2.1 MG/DL (1.8-2.4); POTASSIUM SERUM 3.8 MEQ/L (3.5-5.1); SODIUM LEVEL 138 MEQ/L (136-145); TOTAL PROTEIN 7.2 GM/DL (6.4-8.2)
[2017-10-18] MEDS: NEPHRO-VIT TAB (NEPHROCAPS) PO (09:20)
[2017-10-18] MEDS: PANTOPRAZOLE 40MG TAB (PROTONIX) PO (09:20)
[2017-10-18] MEDS: MAGNESIUM OXIDE 400 MG TAB (MAG-OX) PO ×2 (09:21→20:02)
[2017-10-18] MEDS: lamoTRIgine 100MG TAB PO (09:21)
[2017-10-18] MEDS: ACETAMINOPHEN 500 MG TAB PO ×2 (09:22→18:36)
[2017-10-18] MEDS: ENOXAPARIN 40 MG/0.4 ML SYRINGE (J1650) SC (09:27)
[2017-10-18] MEDS: MAALOX 30 ML SUSP *UDC PO (09:32)
[2017-10-18] MEDS: DESIPRAMINE 25 MG TAB PO (20:02)
[2017-10-19] MEDS: IBUPROFEN 600 MG TAB PO ×2 (02:35→16:04)
[2017-10-19 05:52] LABS: MEAN CORPUSCULAR HEMOGLOBIN 31.4 pg (27.0-33.0); MEAN CORPUSCULAR HGB CONC 34.6 g/dl (32.0-36.5); MEAN CORPUSCULAR VOLUME 90.9 fl (80.0-96.0); RED BLOOD COUNT 2.64 10^6/uL (4.00-5.40); RED CELL DISTRIBUTION WIDTH 11.8 % (11.5-14.5); WHITE BLOOD COUNT 8.4 10^3/uL (4.0-10.0)
[2017-10-19 06:07] LABS: ADD MANUAL DIFFER YES; DIFF SLIDE NUMBER 3; HEMOGLOBIN 8.3 g/dl (12.0-15.5); PLATELET COUNT, AUTOMATED 325 10^3/uL (150-450); POSITIVE DIFF POS FLAG
[2017-10-19 06:10] LABS: ALBUMIN 2.8 GM/DL (3.2-5.2); ALKALINE PHOSPHATASE 52 U/L (45-117); ALT/SGPT 13 U/L (12-78); ANION GAP 6 MEQ/L (8-16); AST/SGOT 8 U/L (7-37); BILIRUBIN,TOTAL 0.1 MG/DL (0.2-1.0); BLOOD UREA NITROGEN 6 MG/DL (7-18); CALCIUM LEVEL 7.9 MG/DL (8.5-10.1); CARBON DIOXIDE LEVEL 26 MEQ/L (21-32); CHLORIDE LEVEL 110 MEQ/L (98-107); CREATININE FOR GFR 0.89 MG/DL (0.55-1.30); GLOMERULAR FILTRATION RATE > 60.0 (>60); GLUCOSE, FASTING 92 MG/DL (70-100); MAGNESIUM LEVEL 1.9 MG/DL (1.8-2.4); POTASSIUM SERUM 3.8 MEQ/L (3.5-5.1); SODIUM LEVEL 142 MEQ/L (136-145); TOTAL PROTEIN 5.6 GM/DL (6.4-8.2)
[2017-10-19] MEDS: ACETAMINOPHEN 500 MG TAB PO ×2 (07:12→17:47)
[2017-10-19 07:14] LABS: ATYPICAL LYMPH 3 % (0-5); BASOPHILS 1 % (0-4); EOSINOPHILS 1 % (0-5); LYMPHOCYTES 60 % (16-52); MONOCYTES 1 % (0-8); NEUTROPHILS 34 % (35-75)
[2017-10-19 07:15] LABS: ANISOCYTOSIS 1+; PLATELET ESTIMATE NORMAL (NORMAL)
[2017-10-19] MEDS: PANTOPRAZOLE 40MG TAB (PROTONIX) PO (09:09)
[2017-10-19] MEDS: lamoTRIgine 100MG TAB PO (09:10)
[2017-10-19] MEDS: MAGNESIUM OXIDE 400 MG TAB (MAG-OX) PO ×2 (09:10→21:34)
[2017-10-19] MEDS: NEPHRO-VIT TAB (NEPHROCAPS) PO (09:10)
[2017-10-19] MEDS: ENOXAPARIN 40 MG/0.4 ML SYRINGE (J1650) SC (09:11)
[2017-10-19] MEDS: ONDANSETRON 4 MG ORAL DISINTEGRATING TAB (Q0162 PER 1MG) SL ×2 (09:13→21:44)
[2017-10-19] MEDS: SUMAtriptan SUCCINATE 25 MG TAB PO ×2 (09:14→21:44)
[2017-10-19 17:18] LABS: HEMATOCRIT 25.7 % (36.0-47.0); HEMOGLOBIN 8.8 g/dl (12.0-15.5)
[2017-10-19] MEDS: DESIPRAMINE 25 MG TAB PO (21:34)
[2017-10-20 06:32] LABS: BASO # 0.1 10^3/uL (0.0-0.2); BASO % 0.6 % (0.0-1.0); EOS # 0.1 10^3/uL (0.0-0.50); EOS % 1.2 % (0.0-3.0); HEMATOCRIT 27.3 % (36.0-47.0); HEMOGLOBIN 9.5 g/dl (12.0-15.5); IMMATURE GRANULOCYTE % 0.2 % (0-3.0); MEAN CORPUSCULAR HEMOGLOBIN 31.7 pg (27.0-33.0); MEAN CORPUSCULAR HGB CONC 34.8 g/dl (32.0-36.5); MONO # 0.5 10^3/uL (0.0-0.8); MONO % 5.9 % (0.0-5.0); NEUTROPHILS # 3.7 10^3/uL (1.8-7.7); NEUTROPHILS % 44.1 % (36.0-66.0); PLATELET COUNT, AUTOMATED 365 10^3/uL (150-450); RED CELL DISTRIBUTION WIDTH 11.9 % (11.5-14.5); WHITE BLOOD COUNT 8.4 10^3/uL (4.0-10.0)
[2017-10-20 06:58] LABS: ALBUMIN 3.1 GM/DL (3.2-5.2); ALKALINE PHOSPHATASE 52 U/L (45-117); ALT/SGPT 15 U/L (12-78); ANION GAP 3 MEQ/L (8-16); AST/SGOT 13 U/L (7-37); BILIRUBIN,TOTAL 0.2 MG/DL (0.2-1.0); BLOOD UREA NITROGEN 6 MG/DL (7-18); CALCIUM LEVEL 8.8 MG/DL (8.5-10.1); CARBON DIOXIDE LEVEL 31 MEQ/L (21-32); CHLORIDE LEVEL 111 MEQ/L (98-107); CREATININE FOR GFR 0.83 MG/DL (0.55-1.30); GLOMERULAR FILTRATION RATE > 60.0 (>60); GLUCOSE, FASTING 82 MG/DL (70-100); MAGNESIUM LEVEL 2.1 MG/DL (1.8-2.4); POTASSIUM SERUM 4.3 MEQ/L (3.5-5.1); SODIUM LEVEL 145 MEQ/L (136-145); TOTAL PROTEIN 6.2 GM/DL (6.4-8.2)
[2017-10-20] MEDS: ENOXAPARIN 40 MG/0.4 ML SYRINGE (J1650) SC (08:52)
[2017-10-20] MEDS: MAGNESIUM OXIDE 400 MG TAB (MAG-OX) PO (08:59)
[2017-10-20] MEDS: PANTOPRAZOLE 40MG TAB (PROTONIX) PO (09:00)
[2017-10-20] MEDS: lamoTRIgine 100MG TAB PO (09:00)
[2017-10-20] MEDS: NEPHRO-VIT TAB (NEPHROCAPS) PO (10:13)
[2017-10-20] MEDS: IBUPROFEN 600 MG TAB PO (10:13)
== END 2017-10-20 12:11 | disposition home or self-care (01) | DRG 640 ==
LOC: M ED 23:43 → M MSPAV 10-14 12:13 → M ED INP 10-13 02:55 → M ICU 10-13 04:36
DX: E87.1 Hypo-osmolality and hyponatremia (principal); G93.41 Metabolic encephalopathy; F50.02 Anorexia nervosa, binge eating/purging type; E87.3 Alkalosis; E87.8 Other disorders of electrolyte and fluid balance, not elsewhere classified; E87.6 Hypokalemia; F31.9 Bipolar disorder, unspecified; E87.2 Acidosis; K21.9 Gastro-esophageal reflux disease without esophagitis; Z79.899 Other long term (current) drug therapy; Z88.5 Allergy status to narcotic agent; Z91.041 Radiographic dye allergy status; Z98.1 Arthrodesis status

== ENCOUNTER → 2017-10-31 | Outpatient (REF) | payer MEDICARE, OTHER ==
[2017-10-31 17:29] LABS: ANION GAP 6 MEQ/L (8-16); BLOOD UREA NITROGEN 5 MG/DL (7-18); CARBON DIOXIDE LEVEL 30 MEQ/L (21-32); CHLORIDE LEVEL 102 MEQ/L (98-107); CREATININE FOR GFR 1.01 MG/DL (0.55-1.30); GLOMERULAR FILTRATION RATE > 60.0 (>60); GLUCOSE, FASTING 75 MG/DL (70-100); SODIUM LEVEL 138 MEQ/L (136-145)
== END ==
LOC: M SFHCCLAY 12:14
DX: E87.6 Hypokalemia (principal)
CPT/HCPCS: 80048

== ENCOUNTER → 2017-11-14 | Outpatient (REF) | payer MEDICARE, OTHER ==
[2017-11-14 12:58] LABS: ANION GAP 8 MEQ/L (8-16); CARBON DIOXIDE LEVEL 30 MEQ/L (21-32); CHLORIDE LEVEL 104 MEQ/L (98-107); POTASSIUM SERUM 4.4 MEQ/L (3.5-5.1); SODIUM LEVEL 142 MEQ/L (136-145)
== END ==
LOC: M SFHCCLAY 08:41
DX: F50.2 Bulimia nervosa (principal)
CPT/HCPCS: 80051

== ENCOUNTER → 2018-04-10 | Outpatient (REF) | payer MEDICARE, OTHER ==
[2018-04-10 16:56] LABS: ANION GAP 7 MEQ/L (8-16); BLOOD UREA NITROGEN 12 MG/DL (7-18); CALCIUM LEVEL 9.7 MG/DL (8.5-10.1); CARBON DIOXIDE LEVEL 27 MEQ/L (21-32); CHLORIDE LEVEL 100 MEQ/L (98-107); CREATININE FOR GFR 1.04 MG/DL (0.55-1.30); GLOMERULAR FILTRATION RATE > 60.0 (>60); GLUCOSE, FASTING 84 MG/DL (70-100); LITHIUM LEVEL 0.46 MEQ/L (0.60-1.20); POTASSIUM SERUM 4.5 MEQ/L (3.5-5.1); SODIUM LEVEL 134 MEQ/L (136-145)
[2018-04-14 00:10] LABS: LAMOTRIGINE (LAMICTAL) 5.7 ug/mL (2.0-20.0)
== END ==
LOC: M SFHCCLAY 10:46
DX: K21.9 Gastro-esophageal reflux disease without esophagitis (principal); F31.70 Bipolar disorder, currently in remission, most recent episode unspecified
CPT/HCPCS: 80178

== ENCOUNTER → 2018-06-18 | Outpatient (REF) | payer MEDICARE, MEDICAID ==
[~2018-06-18] MED LIST changes: +ABIL10TA9 PO; +ABIL1TAB11 PO; -ABIL1TAB5 PO; -ABIL5TAB5 PO; -BUPR1TAB17 PO; +BUPR1TAB53 PO; -COLA100C3 PO; +COLA100C5 PO; +DESI150T PO; +DESI25TA59 PO; -GASTROGRAFIN SOLUTION 30ML (Q9963) As Ordered ONE; +HYDR-3363 PO; -HYDR-4274 PO; -HYDR25T PO; +HYDR50TA70 PO; -ISOVUE-370 76% 100ML VIAL (Q9967) As Ordered ONE; +KLOR10TA76 PO; +LAMO10TA PO; +MAG400TA PO; +MAGN400T5 PO; +MILK120011 PO; -MILKSUS PO; -NICO21DI5 TD; +NICO21DI6 TD; +PANT40TA3 PO; +PATIENT COMMENTS; -POTA10CA PO; +SUMA25TA3 PO
[2018-06-18 17:04] LABS: BLOOD UREA NITROGEN 19 MG/DL (7-18); C REACTIVE PROTEIN QUANTITATIV < 0.30 MG/DL (0.00-0.30); CALCIUM LEVEL 9.8 MG/DL (8.5-10.1); CARBON DIOXIDE LEVEL 28 MEQ/L (21-32); CHLORIDE LEVEL 104 MEQ/L (98-107); CREATININE FOR GFR 1.15 MG/DL (0.55-1.30); GLOMERULAR FILTRATION RATE 59.8 (>60); GLUCOSE, FASTING 76 MG/DL (70-100); POTASSIUM SERUM 4.3 MEQ/L (3.5-5.1); SODIUM LEVEL 139 MEQ/L (136-145)
[2018-06-23 00:07] LABS: ANA (HEP2) Negative (.); CYCLIC CITRULLINATED PEPTIDE 11 units (0-19); Lyme Disease IgG Ab 18 kDa Ban Absent (.); Lyme Disease IgG Ab 23 kDa Ban Absent (.); Lyme Disease IgG Ab 28 kDa Ban Absent (.); Lyme Disease IgG Ab 30 kDa Ban Absent (.); Lyme Disease IgG Ab 39 kDa Ban Present (.); Lyme Disease IgG Ab 41 kDa Ban Present (.); Lyme Disease IgG Ab 45 kDa Ban Absent (.); Lyme Disease IgG Ab 58 kDa Ban Absent (.); Lyme Disease IgG Ab 66 kDa Ban Absent (.); Lyme Disease IgG Ab 93 kDa Ban Absent (.); Lyme Disease IgG West Blot Int Negative (.); Lyme Disease IgG/IgM Antibodie 2.97 ISR (0.00-0.90); Lyme Disease IgM Ab 23 kDa Ban Present (.); Lyme Disease IgM Ab 39 kDa Ban Present (.); Lyme Disease IgM Ab 41 kDa Ban Present (.); Lyme Disease IgM Ab Quantitati 0.98 index (0.00-0.79); Lyme Disease IgM West Blot Int Positive (.)
== END ==
LOC: M SFHCCLAY 10:35
PROVIDERS: ATTEND Family Medicine
DX: Z86.19 Personal history of other infectious and parasitic diseases (principal); R53.81 Other malaise; M19.90 Unspecified osteoarthritis, unspecified site
CPT/HCPCS: 80048; 84443; 85652; 86038; 86140; 86200; 86617; G0463

== ENCOUNTER → 2018-06-25 | Outpatient (CLI) | payer MEDICARE, MEDICAID ==
--- NOTE | 2018-06-25 19:10 | ECHO ---
DATE OF PROCEDURE: 06/25/2018 REFERRING PHYSICIAN: Dr. Chris Suazo INDICATION: Bulimia. Height 160 cm, weight 61 kg. DIMENSIONS: IVS: 0.6 LV: 4.3 LVPW: 0.8 LA: 3.2 Aorta: 2.4 IVC: 1.9 Mitral E wave velocity: 85 A wave: 49 E prime septal: 11.1 E prime lateral: 15.3 FINDINGS: The study is of good technical quality. Left ventricle is of normal size and systolic function with estimated ejection fraction (EF) of 60-65%. Right ventricle also normal size and systolic function. Both atria appear normal. All four cardiac valves were well seen and appear normal. Trivial pericardial effusion is noted. Inferior vena cava is normal size and appropriately collapses with respiration indicative of normal central venous pressure. Aortic root, aortic arch and visualized segment of abdominal aorta all appear normal. Doppler interrogation reveals competent aortic valve. There is trace mitral, tricuspid and pulmonic insufficiency. Calculated pulmonary artery pressure is within normal limits. Mitral inflow pattern and tissue Doppler imaging of mitral annulus reveal normal diastolic function. CONCLUSIONS: 1. Study is of good technical quality. 2. Normal left ventricular (LV) size, systolic and diastolic function. 3. No significant valvular disease. 4. Trivial pericardial effusion. 5. Normal central venous pressure and likely normal pulmonary artery pressure. COMMENT: Subacute bacterial endocarditis (SBE) prophylaxis is not recommended. Essentially normal echocardiogram.
== END ==
LOC: M CARPUL 10:47
PROVIDERS: ATTEND Family Medicine
DX: I36.0 Nonrheumatic tricuspid (valve) stenosis (principal); R53.83 Other fatigue; F50.2 Bulimia nervosa

== ENCOUNTER → 2018-08-03 | Outpatient (REF) | payer MEDICARE, MEDICAID ==
[2018-08-03 15:44] LABS: BASO # 0.1 10^3/uL (0.0-0.2); BASO % 0.8 % (0.0-1.0); BLOOD UREA NITROGEN 16 MG/DL (7-18); C REACTIVE PROTEIN QUANTITATIV < 0.30 MG/DL (0.00-0.30); CALCIUM LEVEL 8.9 MG/DL (8.5-10.1); CARBON DIOXIDE LEVEL 28 MEQ/L (21-32); CHLORIDE LEVEL 102 MEQ/L (98-107); EOS # 0.3 10^3/uL (0.0-0.50); EOS % 2.9 % (0.0-3.0); FERRITIN 34 NG/ML (8-252); GLOMERULAR FILTRATION RATE > 60.0 (>60); GLUCOSE, FASTING 86 MG/DL (70-100); HEMATOCRIT 35.8 % (36.0-47.0); HEMOGLOBIN 11.5 g/dl (12.0-15.5); IRON (FE) 97 UG/DL (50-170); LYMPH # 2.8 10^3/uL (1.5-6.5); LYMPH % 30.7 % (24.0-44.0); MEAN CORPUSCULAR HEMOGLOBIN 31.2 pg (27.0-33.0); MEAN CORPUSCULAR HGB CONC 32.1 g/dl (32.0-36.5); MONO # 0.7 10^3/uL (0.0-0.8); MONO % 7.9 % (0.0-5.0); NEUTROPHILS # 5.2 10^3/uL (1.8-7.7); NEUTROPHILS % 57.4 % (36.0-66.0); PERCENT SATURATION 36.1 % (13.2-45.0); PLATELET COUNT, AUTOMATED 275 10^3/uL (150-450); POTASSIUM SERUM 4.3 MEQ/L (3.5-5.1); RED BLOOD COUNT 3.69 10^6/uL (4.00-5.40); SODIUM LEVEL 137 MEQ/L (136-145); TOTAL IRON BINDING CAPACITY 269 UG/DL (250-450); WHITE BLOOD COUNT 9.1 10^3/uL (4.0-10.0)
[2018-08-03 15:48] LABS: FOLATE 11.2 NG/ML; TOTAL 25(OH) VITAMIN D 84.8 NG/ML (30.0-100.0); VITAMIN B12 LEVEL 642 PG/ML
== END ==
LOC: M SFHCPLAZ 13:22
PROVIDERS: ATTEND Internal Medicine Infectious Disease
DX: D64.9 Anemia, unspecified (principal); M85.80 Other specified disorders of bone density and structure, unspecified site; R53.83 Other fatigue; M19.90 Unspecified osteoarthritis, unspecified site; K59.01 Slow transit constipation; Z86.19 Personal history of other infectious and parasitic diseases
CPT/HCPCS: 36415; 80048; 82306; 82607; 82728; 82746; 83550; 85025; 86140; G0463

== ENCOUNTER → 2019-04-12 | Outpatient (REF) | payer MEDICARE, MEDICAID ==
[~2019-04-12] MED LIST changes: -/QUET10TA OR; -/RISPSOL3 OR; +DRIS50003 PO; +LAMI1TAB8 PO; -LAMO100T PO; +LAMO100T3 PO; +LAMO100T80 PO; -LAMO10TA PO; -OLAN2.5T PO; +OLAN2.5T25 PO; +OMEP-218 PO; -OMEP20CA3 PO; +OMEP20CA4 PO; +RISP1SOL15 OR; +SENN-83 PO; +SERO1TAB OR; +VITA500T17 PO; -VITA500T53 PO; +[UNRECOGNIZED DRUG - CODE] PO
[2019-04-12 16:59] LABS: BASO # 0.1 10^3/uL (0.0-0.2); EOS # 0.7 10^3/uL (0.0-0.5); EOS % 7.3 % (0.0-3.0); HEMOGLOBIN 11.4 g/dl (12.0-15.5); LYMPH # 3.3 10^3/uL (1.5-5.0); LYMPH % 36.1 % (24.0-44.0); MEAN CORPUSCULAR HEMOGLOBIN 31.8 pg (27.0-33.0); MEAN CORPUSCULAR HGB CONC 31.7 g/dl (32.0-36.5); MEAN CORPUSCULAR VOLUME 100.3 fl (80.0-96.0); MONO # 0.6 10^3/uL (0.0-0.8); MONO % 6.8 % (0.0-5.0); NEUTROPHILS # 4.4 10^3/uL (1.5-8.5); NEUTROPHILS % 48.7 % (36.0-66.0); PLATELET COUNT, AUTOMATED 320 10^3/uL (150-450); RED BLOOD COUNT 3.59 10^6/uL (4.00-5.40)
[2019-04-12 17:33] LABS: ALBUMIN 3.6 GM/DL (3.2-5.2); ALT/SGPT 37 U/L (12-78); BILIRUBIN,TOTAL 0.2 MG/DL (0.2-1.0); BLOOD UREA NITROGEN 17 MG/DL (7-18); CARBON DIOXIDE LEVEL 30 MEQ/L (21-32); CHLORIDE LEVEL 110 MEQ/L (98-107); CREATININE FOR GFR 1.05 MG/DL (0.55-1.30); FREE T4 0.73 NG/DL (0.76-1.46); GLOMERULAR FILTRATION RATE > 60.0 (>60); GLUCOSE, FASTING 100 MG/DL (70-100); IRON (FE) 72 UG/DL (50-170); LITHIUM LEVEL 0.48 MEQ/L (0.60-1.20); POTASSIUM SERUM 4.3 MEQ/L (3.5-5.1); SODIUM LEVEL 142 MEQ/L (136-145); TOTAL PROTEIN 6.6 GM/DL (6.4-8.2)
[2019-04-12 18:34] LABS: VITAMIN B12 LEVEL 368 PG/ML (247-911)
[2019-04-16 14:27] LABS: LAMOTRIGINE (LAMICTAL) 3.1 ug/mL (2.0-20.0); Lyme Disease IgG Ab 18 kDa Ban Absent (.); Lyme Disease IgG Ab 23 kDa Ban Absent (.); Lyme Disease IgG Ab 28 kDa Ban Absent (.); Lyme Disease IgG Ab 30 kDa Ban Absent (.); Lyme Disease IgG Ab 39 kDa Ban Present (.); Lyme Disease IgG Ab 41 kDa Ban Present (.); Lyme Disease IgG Ab 45 kDa Ban Absent (.); Lyme Disease IgG Ab 58 kDa Ban Absent (.); Lyme Disease IgG Ab 66 kDa Ban Absent (.); Lyme Disease IgG Ab 93 kDa Ban Absent (.); Lyme Disease IgG West Blot Int Negative (.); Lyme Disease IgG/IgM Antibodie 1.84 ISR (0.00-0.90); Lyme Disease IgM Ab 23 kDa Ban Absent (.); Lyme Disease IgM Ab 39 kDa Ban Absent (.); Lyme Disease IgM Ab 41 kDa Ban Absent (.); Lyme Disease IgM West Blot Int Negative (.)
== END ==
LOC: M SFHCCLAY 13:32
PROVIDERS: ATTEND Nurse Practitioner Family
DX: J30.9 Allergic rhinitis, unspecified (principal); H92.03 Otalgia, bilateral; F31.70 Bipolar disorder, currently in remission, most recent episode unspecified; F50.2 Bulimia nervosa; Z86.19 Personal history of other infectious and parasitic diseases; D64.9 Anemia, unspecified; K21.9 Gastro-esophageal reflux disease without esophagitis
CPT/HCPCS: 80053; 80175; 80178; 82607; 83540; 84439; 84443; 85025; 86617; G0463

== ENCOUNTER 2019-05-01 16:38 | Inpatient (IN) | payer MEDICARE, MEDICAID ==
[~2019-05-01] VITALS: Ht 162.6 cm; Wt 53.6 kg
[~2019-05-01 16:38] MED LIST changes: -DRIS50003 PO; -LAMI1TAB8 PO; +OMEP-172 PO; -OMEP-218 PO; -OMEP20CA4 PO; -SENN-83 PO; -[UNRECOGNIZED DRUG - CODE] PO
[2019-05-01] MEDS ORDERED: LITH300C PO (17:01)
[2019-05-01] MEDS ORDERED: OMEP-218 PO (17:02)
[2019-05-01] MEDS ORDERED: [UNRECOGNIZED DRUG - CODE] PO (17:02)
[2019-05-01] MEDS ORDERED: SENN-83 PO (17:03)
[2019-05-01 17:49] LABS: HEMATOCRIT 37.7 % (36.0-47.0); HEMOGLOBIN 12.4 g/dl (12.0-15.5); MEAN CORPUSCULAR HGB CONC 32.9 g/dl (32.0-36.5); MEAN CORPUSCULAR VOLUME 97.4 fl (80.0-96.0); PLATELET COUNT, AUTOMATED 316 10^3/uL (150-450); RED BLOOD COUNT 3.87 10^6/uL (4.00-5.40)
[2019-05-01] MEDS ORDERED: LAMI1TAB8 PO (17:57)
[2019-05-01] MEDS ORDERED: DRIS50003 PO (17:57)
[2019-05-01] MEDS ORDERED: REFR0.5D8 OU (17:57)
[2019-05-01 18:16] LABS: AMPHETAMINES LEVEL URINE NEGATIVE (NEGATIVE); BARBITURATES URINE NEGATIVE (NEGATIVE); BENZODIAZEPINES URINE NEGATIVE (NEGATIVE); CANNABINOIDS URINE NEGATIVE (NEGATIVE); COCAINE METABOLITE URINE NEGATIVE (NEGATIVE); METHADONE URINE NEGATIVE (NEGATIVE); OPIATES URINE NEGATIVE (NEGATIVE); PHENCYCLIDINE URINE NEGATIVE (NEGATIVE)
[2019-05-01 18:31] LABS: HCG, SERUM QUALITATIVE NEGATIVE (NEGATIVE)
[2019-05-01 18:49] LABS: ACETAMINOPHEN LEVEL < 2.0 UG/ML (10.0-30.0); ALBUMIN 4.1 GM/DL (3.2-5.2); ALT/SGPT 59 U/L (12-78); BILIRUBIN,DIRECT 0.1 MG/DL (0.0-0.2); BILIRUBIN,TOTAL 0.4 MG/DL (0.2-1.0); BLOOD UREA NITROGEN 12 MG/DL (7-18); CALCIUM LEVEL 9.5 MG/DL (8.5-10.1); CARBON DIOXIDE LEVEL 34 MEQ/L (21-32); CHLORIDE LEVEL 102 MEQ/L (98-107); CREATININE FOR GFR 1.16 MG/DL (0.55-1.30); ETHYL ALCOHOL (ETHANOL) < 0.003 % (0.000-0.010); GLOMERULAR FILTRATION RATE 58.8 (>60); GLUCOSE, FASTING 83 MG/DL (70-100); POTASSIUM SERUM 3.6 MEQ/L (3.5-5.1); SALICYLATE LEVEL < 1.7 MG/DL (5.0-30.0); SODIUM LEVEL 140 MEQ/L (136-145); TOTAL PROTEIN 7.2 GM/DL (6.4-8.2)
[2019-05-01] MEDS ORDERED: MOM 30ML SUSPENSION UDC PO PRN (19:30)
[2019-05-01] MEDS ORDERED: MAALOX 30 ML SUSP *UDC PO PRN (19:30)
[2019-05-01] MEDS ORDERED: RAMELTEON 8 MG TAB (ROZEREM) PO SCH (21:00)
[2019-05-01 21:59] VITALS: BP 99/65
[2019-05-02 06:08] VITALS: BP 98/54
[2019-05-02] MEDS: OMEPRAZOLE 20 MG CAP PO SCH (09:29)
[2019-05-02 10:18] LABS: C REACTIVE PROTEIN QUANTITATIV < 0.30 MG/DL (0.00-0.30); FREE THYROXINE INDEX 3.1 % (1.3-4.8); T UPTAKE 32 % (30-39); THYROXINE (T4) 9.8 UG/DL (4.5-12.0)
--- NOTE | 2019-05-02 13:04 | MHHPE ---
DATE OF ADMISSION: 05/01/2019 PRIMARY CARE PHYSICIAN: Chris Suazo MD, [facility] CHIEF COMPLAINT: "Things are getting out of control." Complains of insomnia and anxiety. History of bipolar disorder. HISTORY OF PRESENTING ILLNESS: A 28-year-old female with history of Lyme disease, follows with Dr. Delphine Hummel 8 months ago and treated as outpatient with antibiotics with on-and-off joint pains, bipolar disorder, reflux, bulimia, anorexia. Came in to the emergency room (ER) with complaints of insomnia and increased anxiety. Admitted to inpatient mental health unit. Denies any fever, chills, weight gain, weight loss, changes in eating habits, shortness of breath, chest pain, pressure, tightness, palpitations, lightheadedness, dizziness, nausea, vomiting, diarrhea, abdominal pain, upper and lower extremity paresthesias. Complains of generalized weakness. No ataxic gait. Denies dysuria, urgency, frequency, fever, chills, sore throat. PAST MEDICAL HISTORY: Seizure disorder a year ago 2017. Lyme disease. Reflux. Bipolar. Bulimia. Anorexia. ALLERGIES: To HYDROCODONE, BRILLIANT BLUE, SCS, LISDEXAMFETAMINE, RED DYE, TRAZODONE, YELLOW DYE. PAST SURGICAL HISTORY: L1-T12 fusion with kyphoplasty 2009, removal of hardware 2010. FAMILY HISTORY: Mother hypertension. Father alive and well. SOCIAL HISTORY: No alcohol, drug use, or alcohol use. Lives with father and brother. Currently unemployed. REVIEW OF SYSTEMS: Per history of present illness (HPI). ACTIVE MEDICATIONS: - Rozerem 8 mg nightly - Tylenol 650 every 6 as needed for headache - milk of magnesia 30 mL daily - Mylanta 30 mL every 4 as needed for heartburn and indigestion PHYSICAL EXAMINATION: Temperature 98.7, pulse 76, respiratory rate 16, blood pressure 98/54, 100% on room air. Generally, awake, alert, oriented times three. Anicteric sclerae. No jaundice. Lungs are clear to auscultation. No wheezing, rales, or rhonchi. Neck: Supple. Full range of motion. No cervical lymphadenopathy or thyromegaly. Heart: S1, S2, sinus rhythm. Abdomen: Is soft, nontender, nondistended. Extremities: No clubbing, cyanosis, or pitting edema. LABORATORY DATA: White count 8, hemoglobin 12, hematocrit 37, platelet count 316. Sodium 140, potassium 3.6, chloride 102, bicarbonate 34, BUN 12, creatinine 1.16, glucose 83, total bilirubin (T Bili) 0.4, direct bilirubin 0.1, AST 25, ALT 59, alkaline phosphatase 64, total protein 7.2, albumin 4.1, TSH 4.19, negative hCG. ASSESSMENT AND PLAN: A 28-year-old with history of Lyme disease treated by Dr. Hummel, reflux, bipolar, bulimia, anorexia presents with increased anxiety and insomnia. IMPRESSION: 1. Bipolar. Management per primary team psychiatrist. 2. On-and-off joint pains. As-needed ibuprofen. The patient says that she does not do well with Tylenol. 3. History of seizure disorder. Currently, on no medications. 4. Bulimia and anorexia. Defer to psychiatrist for treatment. 5. Reflux. On chronic Prilosec. 6. Constipation. On as-needed Senokot. MTDD
[2019-05-02] MEDS: IBUPROFEN 400 MG TAB PO PRN (15:13)
[2019-05-02 15:42] VITALS: BP 97/61
[2019-05-02] MEDS ORDERED: QUEtiapine FUMARATE 50 MG TAB PO PRN (16:00)
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
[2019-05-02] MEDS: FLUTICASONE PROP 0.05% NASAL SPRAY 16 GM (FLONASE) PRN (18:14)
[2019-05-02] MEDS: lamoTRIgine 100MG TAB PO SCH (20:16)
[2019-05-02] MEDS: LITHIUM CARBONATE 300 MG CAP PO SCH (20:16)
[2019-05-03 06:31] VITALS: BP 122/53
[2019-05-03] MEDS: lamoTRIgine 100MG TAB PO SCH ×2 (08:12→21:50)
[2019-05-03] MEDS: OMEPRAZOLE 20 MG CAP PO SCH (08:12)
[2019-05-03] MEDS ORDERED: INFLUENZA QUADRIVALENT PF VACCINE 0.5ML SYRINGE (90686) IM ONE (09:00)
--- NOTE | 2019-05-03 10:43 | MHIPNPDOC ---
[facility] Progress Note Progress Note Inpatient Progress Note Soraya Jane MRN: N/A Date of : N/A Date of Service: 05/03/2019 History of Present Illness 28-year-old women with a history of reported bipolar disorder, PTSD and borderline personality disorder presents reportedly without any suicidal or homicidal ideation stating that she "thinks she is going manic" with some mild bizarre ideation in the ER. She is known to this provider from previous admissions in 2017. Interval History The patient is met with today. She remembers this provider from treatment in 2017. She reports she is doing well and that the Seroquel has been quite helpful for restoring her sleep. She has been doing well. Nursing staff report she is pleasant, amenable and has not been demonstrating any concerning psychotic ideation. The patient reports that she does have some low moments and at times some anxiety, but that her thoughts about bizarre statements and concerning psychotic thoughts have resolved. She reports that she is interested in potentially going to [facility]. No major behavioral problems overnight. Review Of Systems General: Denies fever or appetite changes Cardiovascular: Denies Chest pain or palpations GI: Reports chronic constipation. Denies nausea, vomiting, or diarrhea Respiratory: Denies shortness of breath or cough Neuro: Denies dizziness, tremors Derm: The patient reports some mild dry skin, denies any rashes or itching. : Denies any dysuria or urinary problems MSK: Denies any muscle tightness or stiffness HEENT: Denies any vision changes or headaches Heme/Lymph: denies any bruising or bleeding Endo: denies any cold/heat intolerance or water intake changes Psychotherapy None on this visit. Vital Signs Reviewed. Mental Status Examination General: Well dressed with good hygiene Speech: Spontaneous and fluid Thought processes: Linear and logical MSK: Smooth and coordinated gait, no signs of tremors or involuntary orofacial movements Thought content: Future orientated Abstract reasoning, and computation: Intact Description of associations: Intact Description of abnormal or psychotic thoughts: Denies any suicidal or homicidal ideation. Denies any auditory or visual hallucinations. Does not appear to be responding to internal stimuli. Does not appear to be endorsing any bizarre or paranoid ideation. Judgment: fair Insight: fair Orientation: Alert and orientated 3 Cognition: Grossly normal Recent and remote memory: Intact Attention span and concentration: Intact Fund of knowledge: Adequate Mood: "okay" Affect: Euthymic with a full range Diagnoses Adjustment disorder with disruption of mood and conduct. Bipolar disorder, type 1, most recent episode depressed, in full remission. Assessment and Plan Adjustment disorder: Continue Seroquel 50 mg nightly for sleep. We will help continue to keep patient in remission, unlikely to have full restart of bipolar disorder. Patient reports family conflict bringing insomnia. Bipolar disorder: Continue lithium and Parnate. Disposition The patient will need a further inpatient admission in order to titrate her medications to full effect. She is converted to a voluntary status and will likely be discharged midweek. Time Spent 15 minutes. Friday Vital Signs Vital Signs Date Time Temp Pulse Resp B/P (MAP) Pulse Ox O2 Delivery O2 Flow Rate FiO2 05/03/19 08:42 Room Air 05/03/19 06:31 98.0 80 16 122/53 (76) 05/01/19 20:34 100 Current Medications Current Medications Medications (Trade) Dose Ordered Sig/Lynn Route PRN Reason Start Time Stop Time Status Last Admin Dose Admin Acetaminophen (Tylenol Tab) 650 mg Q6HP PRN PO HEADACHE or DISCOMFORT 05/01/19 19:30 Al Hydrox/Mg Hydrox/Simethicone (Mylanta) 30 ml Q4HP PRN PO HEARTBURN/INDIGESTION 05/01/19 19:30 Artificial Tears (Akwa Tears) 2 drop QIDP PRN OU DRY EYES 05/02/19 09:15 Fluticasone Propionate (Flonase 0.05% Nasal [place]) 1 spray DAILY PRN NA CONGESTION 05/02/19 09:15 05/02/19 18:14 Home Med (Med Rec Complete!) ASDIRECTED XX 05/01/19 18:00 05/01/19 18:00 DC Ibuprofen (Advil) 400 mg Q6HP PRN PO PAIN 05/02/19 09:15 05/02/19 15:13 Lamotrigine (LaMICtal) 150 mg BID PO 05/02/19 21:00 05/03/19 08:12 [place] Carbonate ([place] Carbonate) 300 mg QHS PO 05/02/19 21:00 05/02/19 20:16 Magnesium Hydroxide (Milk Of Magnesia) 30 ml DAILYPRN PRN PO CONSTIPATION 05/01/19 19:30 Omeprazole (PriLOSEC) 20 mg DAILY PO 05/02/19 09:00 05/03/19 08:12 Quetiapine Fumarate (SEROquel) 50 mg QHS PRN PO INSOMNIA 05/02/19 16:00 05/02/19 20:16 Ramelteon (Rozerem) 8 mg QHS PO 05/01/19 21:00 05/02/19 15:59 DC 05/01/19 22:11 Senna (Senokot) 2 tab DAILY PRN PO CONSTIPATION 05/02/19 09:15 Allergies Coded Allergies: hydrocodone (Verified Allergy, Unknown, 05/01/19) lisdexamfetamine (Verified Adverse Reaction, Unknown, hallucinations, 05/01/19) trazodone (Verified Adverse Reaction, Unknown, "numbness", 05/01/19) CORNELIO SHARMA DO May 03, 2019 10:43
[2019-05-03] MEDS: FLUTICASONE PROP 0.05% NASAL SPRAY 16 GM (FLONASE) PRN (12:33)
[2019-05-03 17:47] VITALS: BP 113/69
[2019-05-03] MEDS ORDERED: QUEtiapine FUMARATE 50 MG TAB PO SCH (21:00)
[2019-05-03] MEDS: LITHIUM CARBONATE 300 MG CAP PO SCH (21:49)
[2019-05-04 06:45] VITALS: BP 105/59
[2019-05-04] MEDS: FLUTICASONE PROP 0.05% NASAL SPRAY 16 GM (FLONASE) PRN (08:14)
[2019-05-04] MEDS: OMEPRAZOLE 20 MG CAP PO SCH (08:15)
[2019-05-04] MEDS: lamoTRIgine 100MG TAB PO SCH ×2 (08:16→20:43)
[2019-05-04] MEDS: IBUPROFEN 400 MG TAB PO PRN (08:17)
--- NOTE | 2019-05-04 14:35 | MHIPNPDOC ---
[facility] Progress Note Progress Note Inpatient Progress Note Soraya Jane MRN: N/A Date of : N/A Date of Service: 05/04/2019 History of Present Illness 28-year-old women with a history of reported bipolar disorder, PTSD and borderline personality disorder presents reportedly without any suicidal or homicidal ideation stating that she "thinks she is going manic" with some mild bizarre ideation in the ER. She is known to this provider from previous admissions in 2017. Interval History The patient's met with today. She describes she's doing very well and that her sleep has improved with the Seroquel. She feels that more Seroquel could be helpful as her sleep does get off balance. At times, she does report that she does have unusual ideation, however, she does not appear overtly affected by it or to mind it much during the evaluation. During the discussion, the patient was discussed with about potential discharge date and the potential for her to be discharged as she no longer met involuntary criteria as she had been denying suicidal and homicidal ideation and had been cooperating well with treatment, not significantly impaired by her reported semi-manic symptoms that she had claimed. She appeared to be doing quite well and nursing staff supports that she's cooperative and friendly. The patient was somewhat offended at the idea that she'd not meet involuntary criteria. I attempted to explore this with patient, however, she relented and stated that she was "just fine." Review Of Systems General: Denies fever or appetite changes Cardiovascular: Denies Chest pain or palpations GI: Reports chronic constipation. Denies nausea, vomiting, or diarrhea Respiratory: Denies shortness of breath or cough Neuro: Denies dizziness, tremors Derm: The patient reports some mild dry skin, denies any rashes or itching. : Denies any dysuria or urinary problems MSK: Denies any muscle tightness or stiffness HEENT: Denies any vision changes or headaches Heme/Lymph: denies any bruising or bleeding Endo: denies any cold/heat intolerance or water intake changes Psychotherapy None on this visit. Vital Signs Reviewed. Mental Status Examination General: Well dressed with good hygiene Speech: Spontaneous and fluid Thought processes: Linear and logical MSK: Smooth and coordinated gait, no signs of tremors or involuntary orofacial movements Thought content: Future orientated Abstract reasoning, and computation: Intact Description of associations: Intact Description of abnormal or psychotic thoughts: Denies any suicidal or homicidal ideation. Denies any auditory or visual hallucinations. Does not appear to be r esponding to internal stimuli. Does not appear to be endorsing any bizarre or paranoid ideation. Judgment: fair Insight: fair Orientation: Alert and orientated 3 Cognition: Grossly normal Recent and remote memory: Intact Attention span and concentration: Intact Fund of knowledge: Adequate Mood: "okay" Affect: Euthymic with a full range Diagnoses Adjustment disorder with disruption of mood and conduct. Bipolar disorder, type 1, most recent episode depressed, in full remission. Assessment and Plan Adjustment disorder: Increase Seroquel to 100 mg nightly for sleep. We'll likely continue to have patient in remission. Bipolar disorder: Continue lithium. Patient will bring home Parnate, to be dosed. Disposition The patient will be further observed and possibly discharged tomorrow or the day after after observation on her medications. She's doing quite well and is here on a voluntary understanding. Time Spent 15 minutes [id number]. Friday Vital Signs Vital Signs Date Time Temp Pulse Resp B/P (MAP) Pulse Ox O2 Delivery O2 Flow Rate FiO2 05/04/19 08:11 Room Air 05/04/19 06:45 98.0 75 18 105/59 (74) 05/01/19 20:34 100 Current Medications Current Medications Medications (Trade) Dose Ordered Sig/Lynn Route PRN Reason Start Time Stop Time Status Last Admin Dose Admin Acetaminophen (Tylenol Tab) 650 mg Q6HP PRN PO HEADACHE or DISCOMFORT 05/01/19 19:30 Al Hydrox/Mg Hydrox/Simethicone (Mylanta) 30 ml Q4HP PRN PO HEARTBURN/INDIGESTION 05/01/19 19:30 Artificial Tears (Akwa Tears) 2 drop QIDP PRN OU DRY EYES 05/02/19 09:15 Fluticasone Propionate (Flonase 0.05% Nasal [place]) 1 spray DAILY PRN NA CONGESTION 05/02/19 09:15 05/04/19 08:14 Home Med (Med Rec Complete!) ASDIRECTED XX 05/01/19 18:00 05/01/19 18:00 DC Hydroxyzine HCl (Atarax) 25 mg Q6HP PRN PO ANXIETY 05/03/19 11:30 Ibuprofen (Advil) 400 mg Q6HP PRN PO PAIN 05/02/19 09:15 05/04/19 08:17 Lamotrigine (LaMICtal) 150 mg BID PO 05/02/19 21:00 05/04/19 08:16 [place] Carbonate (Golinda Carbonate) 300 mg QHS PO 05/02/19 21:00 05/03/19 21:49 Magnesium Hydroxide (Milk Of Magnesia) 30 ml DAILYPRN PRN PO CONSTIPATION 05/01/19 19:30 Omeprazole (PriLOSEC) 20 mg DAILY PO 05/02/19 09:00 05/04/19 08:15 Quetiapine Fumarate (SEROquel) 50 mg QHS PO 05/03/19 21:00 05/03/19 21:50 Quetiapine Fumarate (SEROquel) 50 mg QHS PRN PO INSOMNIA 05/02/19 16:00 05/03/19 14:03 DC 05/02/19 20:16 Ramelteon (Rozerem) 8 mg QHS PO 05/01/19 21:00 05/02/19 15:59 DC 05/01/19 22:11 Senna (Senokot) 2 tab DAILY PRN PO CONSTIPATION 05/02/19 09:15 Allergies Coded Allergies: hydrocodone (Verified Allergy, Unknown, 05/01/19) lisdexamfetamine (Verified Adverse Reaction, Unknown, hallucinations, 05/01/19) trazodone (Verified Adverse Reaction, Unknown, "numbness", 05/01/19) CORNELIO SHARMA DO May 04, 2019 14:35
[2019-05-04 20:30] VITALS: BP 96/70
[2019-05-04] MEDS: LITHIUM CARBONATE 300 MG CAP PO SCH (20:41)
[2019-05-04] MEDS: QUEtiapine FUMARATE 50 MG TAB PO SCH (20:41)
[2019-05-05 00:06] LABS: Lyme Disease IgG Ab 18 kDa Ban Present (.); Lyme Disease IgG Ab 23 kDa Ban Absent (.); Lyme Disease IgG Ab 28 kDa Ban Absent (.); Lyme Disease IgG Ab 30 kDa Ban Absent (.); Lyme Disease IgG Ab 39 kDa Ban Present (.); Lyme Disease IgG Ab 41 kDa Ban Present (.); Lyme Disease IgG Ab 45 kDa Ban Absent (.); Lyme Disease IgG Ab 58 kDa Ban Absent (.); Lyme Disease IgG Ab 66 kDa Ban Absent (.); Lyme Disease IgG Ab 93 kDa Ban Absent (.); Lyme Disease IgG West Blot Int Negative (.); Lyme Disease IgG/IgM Antibodie 2.02 ISR (0.00-0.90); Lyme Disease IgM Ab 23 kDa Ban Absent (.); Lyme Disease IgM Ab 39 kDa Ban Absent (.); Lyme Disease IgM Ab 41 kDa Ban Absent (.); Lyme Disease IgM Ab Quantitati 1.01 index (0.00-0.79); Lyme Disease IgM West Blot Int Negative (.)
[2019-05-05 06:05] VITALS: BP 109/64
[2019-05-05] MEDS: OMEPRAZOLE 20 MG CAP PO SCH (08:39)
[2019-05-05] MEDS: lamoTRIgine 100MG TAB PO SCH ×2 (08:41→21:49)
--- NOTE | 2019-05-05 11:41 | MHIPNPDOC ---
[facility] Progress Note Progress Note Soraya Jane Inpatient Progress Note Soraya Jane Select Gender MRN: N/A Date of : MM/DD/YYYY Date of Service: 05/05/2019 History of Present Illness 28-year-old women with a history of reported bipolar disorder, PTSD and borderline personality disorder presents reportedly without any suicidal or homicidal ideation stating that she "thinks she is going manic" with some mild bizarre ideation in the ER. She is known to this provider from previous admissions in 2017. Interval History The patient is met with today. She was upset about the previous conversation. After some empathetic listening, the patient became much more amenable and described that she was ambivalent about going and she noted that she felt much improved. She feels that her previous days were so long and intensive, but this one is so in short and mild that is confusing for her. She describes that she has been doing well going to groups, her sleep's improved, her thought process is clear. She further describes that she is amenable to going tomorrow. No major behavioral problems overnight. Nursing staff support that the patient has continued to be cooperative with no significant behavioral problems. Review Of Systems General: Denies fever or appetite changes Cardiovascular: Denies Chest pain or palpations GI: Reports chronic constipation. Denies nausea, vomiting, or diarrhea Respiratory: Denies shortness of breath or cough Neuro: Denies dizziness, tremors Derm: The patient reports some mild dry skin, denies any rashes or itching. : Denies any dysuria or urinary problems MSK: Denies any muscle tightness or stiffness HEENT: Denies any vision changes or headaches Heme/Lymph: denies any bruising or bleeding Endo: denies any cold/heat intolerance or water intake changes Psychotherapy None on this visit. Vital Signs Reviewed. Mental Status Examination General: Well dressed with good hygiene Speech: Spontaneous and fluid Thought processes: Linear and logical MSK: Smooth and coordinated gait, no signs of tremors or involuntary orofacial movements Thought content: Future orientated Abstract reasoning, and computation: Intact Description of associations: Intact Description of abnormal or psychotic thoughts: Denies any suicidal or homicidal ideation. Denies any auditory or visual hallucinations. Does not appear to be responding to internal stimuli. Does not appear to be endorsing any bizarre or paranoid ideation. Judgment: fair Insight: fair Orientation: Alert and orientated 3 Cognition: Grossly normal Recent and remote memory: Intact Attention span and concentration: Intact Fund of knowledge: Adequate Mood: "okay" Affect: Euthymic with a full range Diagnoses Adjustment disorder with disruption of mood and conduct. Bipolar disorder, type 1, most recent episode depressed, in full remission. Borderline personality disorder Assessment and Plan Adjustment disorder: Continue Seroquel 100 mg nightly for sleep. Add Seroquel 12.5 mg TID PRN for anxiety. Discussed risks, benefits, potential side effects when patient leaves as well as not operating motor vehicles until she knows how to adjust to her. Bipolar disorder: Continue lithium. Patient will bring home Rach, to be dosed. Disposition Discharge tomorrow. Time Spent 15 minutes. Vital Signs Vital Signs Date Time Temp Pulse Resp B/P (MAP) Pulse Ox O2 Delivery O2 Flow Rate FiO2 05/05/19 06:05 98.0 77 18 109/64 (79) Room Air 05/01/19 20:34 100 Current Medications Current Medications Medications (Trade) Dose Ordered Sig/Lynn Route PRN Reason Start Time Stop Time Status Last Admin Dose Admin Acetaminophen (Tylenol Tab) 650 mg Q6HP PRN PO HEADACHE or DISCOMFORT 05/01/19 19:30 Al Hydrox/Mg Hydrox/Simethicone (Mylanta) 30 ml Q4HP PRN PO HEARTBURN/INDIGESTION 05/01/19 19:30 Artificial Tears (Akwa Tears) 2 drop QIDP PRN OU DRY EYES 05/02/19 09:15 Fluticasone Propionate (Flonase 0.05% Nasal [place]) 1 spray DAILY PRN NA CONGESTION 05/02/19 09:15 05/04/19 08:14 Home Med (Med Rec Complete!) ASDIRECTED XX 05/01/19 18:00 05/01/19 18:00 DC Hydroxyzine HCl (Atarax) 25 mg Q6HP PRN PO ANXIETY 05/03/19 11:30 Ibuprofen (Advil) 400 mg Q6HP PRN PO PAIN 05/02/19 09:15 05/04/19 08:17 Lamotrigine (LaMICtal) 150 mg BID PO 05/02/19 21:00 05/05/19 08:41 [place] Carbonate ([place] Carbonate) 300 mg QHS PO 05/02/19 21:00 05/04/19 20:41 Magnesium Hydroxide (Milk Of Magnesia) 30 ml DAILYPRN PRN PO CONSTIPATION 05/01/19 19:30 Omeprazole (PriLOSEC) 20 mg DAILY PO 05/02/19 09:00 05/05/19 08:39 Quetiapine Fumarate (SEROquel) 50 mg QHS PO 05/03/19 21:00 05/04/19 16:17 DC 05/03/19 21:50 Quetiapine Fumarate (SEROquel) 50 mg QHS PRN PO INSOMNIA 05/02/19 16:00 05/03/19 14:03 DC 05/02/19 20:16 Quetiapine Fumarate (SEROquel) 100 mg QHS PO 05/04/19 21:00 05/04/19 20:41 Ramelteon (Rozerem) 8 mg QHS PO 05/01/19 21:00 05/02/19 15:59 DC 05/01/19 22:11 Senna (Senokot) 2 tab DAILY PRN PO CONSTIPATION 05/02/19 09:15 Allergies Coded Allergies: hydrocodone (Verified Allergy, Unknown, 05/01/19) lisdexamfetamine (Verified Adverse Reaction, Unknown, hallucinations, 05/01/19) trazodone (Verified Adverse Reaction, Unknown, "numbness", 05/01/19) CORNELIO SHARMA DO May 05, 2019 11:41
[2019-05-05 18:14] VITALS: BP 121/85
[2019-05-05] MEDS: LITHIUM CARBONATE 300 MG CAP PO SCH (21:48)
[2019-05-05] MEDS: QUEtiapine FUMARATE 50 MG TAB PO SCH (21:49)
[2019-05-05 22:51] VITALS: BP 123/89
[2019-05-05] MEDS: QUEtiapine FUMARATE 12.5 MG HALF-TAB PO PRN (23:33)
[2019-05-05] MEDS: hydrOXYzine 25 MG TAB PO PRN (23:34)
[2019-05-06 06:10] VITALS: BP 109/58
--- NOTE | 2019-05-06 07:57 | MHDSPDOC ---
[facility] Discharge Summary Vital Signs/I&Os Vital Signs Date Time Temp Pulse Resp B/P (MAP) Pulse Ox O2 Delivery O2 Flow Rate FiO2 05/06/19 06:10 97.3 87 16 109/58 (75) 05/05/19 22:51 98 Room Air Laboratory Data Labs 24H Laboratory Tests 2 05/05/19 22:33: Bedside Glucose (Misc Panel) 112H Medications Scheduled Ergocalciferol (Vitamin D2) (Drisdol) 50,000 Unit Capsule, 50,000 UNIT PO QWEEK, (Reported) MONDAYS Lamotrigine (Lamictal) 150 Mg Tablet, 150 MG PO BID, (Reported) [place] Carbonate ([place] Carbonate) 300 Mg Capsule, 300 MG PO DAILY, (Reported) Omeprazole (Omeprazole) 20 Mg Capsule.dr, 20 MG PO DAILY, (Reported) Quetiapine Fumarate (Quetiapine Fumarate) 25 Mg Tablet, 100 MG PO QPM for mood for 7 Days, #7 Tranylcypromine Sulfate (Parnate) 10 Mg Tablet, 10 MG PO BID, (Reported) Scheduled PRN Carboxymethylcellulose Sodium (Refresh Tears) 15 Ml Drops, 1 DROP OU TID PRN for DRY EYES, (Reported) Fluticasone Propionate (Fluticasone Propionate) 50 Mcg/Act Spr, 1 SPRAY NA DAILY PRN for CONGESTION, (Reported) Sennosides (Senna) 8.6 Mg Tablet, 2 TAB PO DAILY PRN for CONSTIPATION, (Reported) Allergies Coded Allergies: hydrocodone (Verified Allergy, Unknown, 05/01/19) lisdexamfetamine (Verified Adverse Reaction, Unknown, hallucinations, 05/01/19) trazodone (Verified Adverse Reaction, Unknown, "numbness", 05/01/19) CORNELIO SHARMA DO May 06, 2019 07:57
[2019-05-06] MEDS: lamoTRIgine 100MG TAB PO SCH ×2 (09:54→21:08)
[2019-05-06] MEDS: OMEPRAZOLE 20 MG CAP PO SCH (09:54)
[2019-05-06] MEDS: hydrOXYzine 25 MG TAB PO PRN (09:54)
[2019-05-06] MEDS ORDERED: QUET1TAB7 PO (10:33)
[2019-05-06] MEDS: IBUPROFEN 400 MG TAB PO PRN (17:03)
[2019-05-06 18:00] VITALS: BP 112/72
[2019-05-06] MEDS: LITHIUM CARBONATE 300 MG CAP PO SCH (21:08)
[2019-05-06] MEDS: QUEtiapine FUMARATE 50 MG TAB PO SCH (21:09)
[2019-05-07 05:58] VITALS: BP 122/74
[2019-05-07] MEDS: lamoTRIgine 100MG TAB PO SCH ×2 (08:28→20:34)
[2019-05-07] MEDS: OMEPRAZOLE 20 MG CAP PO SCH (08:28)
--- NOTE | 2019-05-07 11:31 | MHDSPDOC ---
[facility] Discharge Summary Vital Signs/I&Os Vital Signs Date Time Temp Pulse Resp B/P (MAP) Pulse Ox O2 Delivery O2 Flow Rate FiO2 05/07/19 05:58 98.1 82 16 122/74 (90) 05/05/19 22:51 98 Room Air Medications Scheduled Ergocalciferol (Vitamin D2) (Drisdol) 50,000 Unit Capsule, 50,000 UNIT PO QWEEK, (Reported) MONDAYS Lamotrigine (Lamictal) 150 Mg Tablet, 150 MG PO BID, (Reported) [place] Carbonate ([place] Carbonate) 300 Mg Capsule, 300 MG PO DAILY, (Reported) Omeprazole (Omeprazole) 20 Mg Capsule.dr, 20 MG PO DAILY, (Reported) Quetiapine Fumarate (Quetiapine Fumarate) 25 Mg Tablet, 100 MG PO QPM for mood for 7 Days, #7 Tranylcypromine Sulfate (Parnate) 10 Mg Tablet, 10 MG PO BID, (Reported) Scheduled PRN Carboxymethylcellulose Sodium (Refresh Tears) 15 Ml Drops, 1 DROP OU TID PRN for DRY EYES, (Reported) Fluticasone Propionate (Fluticasone Propionate) 50 Mcg/Act Spr, 1 SPRAY NA DAILY PRN for CONGESTION, (Reported) Sennosides (Senna) 8.6 Mg Tablet, 2 TAB PO DAILY PRN for CONSTIPATION, (Reported) Allergies Coded Allergies: hydrocodone (Verified Allergy, Unknown, 05/01/19) lisdexamfetamine (Verified Adverse Reaction, Unknown, hallucinations, 05/01/19) trazodone (Verified Adverse Reaction, Unknown, "numbness", 05/01/19) CORNELIO SHARMA DO May 07, 2019 11:31
[2019-05-07] MEDS: FLUTICASONE PROP 0.05% NASAL SPRAY 16 GM (FLONASE) PRN (11:47)
[2019-05-07] MEDS: QUEtiapine FUMARATE 12.5 MG HALF-TAB PO PRN (15:13)
[2019-05-07 15:57] VITALS: BP 136/83
--- NOTE | 2019-05-07 18:14 | MHIPNPDOC ---
[facility] Progress Note Progress Note Inpatient Progress Note Soraya Jane MRN: N/A Date of : N/A Date of Service: 05/06/2019 History of Present Illness 28-year-old women with a history of reported bipolar disorder, PTSD and borderline personality disorder presents reportedly without any suicidal or homicidal ideation stating that she "thinks she is going manic" with some mild bizarre ideation in the ER. She is known to this provider from previous admissions in 2017. Interval History The patient was met again today. She reportedly the previous evening had not felt ready to be discharged. She reportedly stated to multiple people that she was not ready and was very upset about being potentially discharged. Discussed w ith the patient about converting her to a voluntary status if she wishes to stay longer. She reports the Seroquel is helpful and she was generally amenable during our conversation. Nursing staff notices she has become more demanding and has been attempting to feign various psychotic symptoms. Review Of Systems General: Denies fever or appetite changes Cardiovascular: Denies Chest pain or palpations GI: Reports chronic constipation. Denies nausea, vomiting, or diarrhea Respiratory: Denies shortness of breath or cough Neuro: Denies dizziness, tremors Derm: The patient reports some mild dry skin, denies any rashes or itching. : Denies any dysuria or urinary problems MSK: Denies any muscle tightness or stiffness HEENT: Denies any vision changes or headaches Heme/Lymph: denies any bruising or bleeding Endo: denies any cold/heat intolerance or water intake changes Psychotherapy None on this visit. Vital Signs Reviewed. Mental Status Examination General: Well dressed with good hygiene Speech: Spontaneous and fluid Thought processes: Linear and logical MSK: Smooth and coordinated gait, no signs of tremors or involuntary orofacial movements Thought content: Future orientated Abstract reasoning, and computation: Intact Description of associations: Intact Description of abnormal or psychotic thoughts: Denies any suicidal or homicidal ideation. Denies any auditory or visual hallucinations. Does not appear to be responding to internal stimuli. Does not appear to be endorsing any bizarre or paranoid ideation. Judgment: fair Insight: fair Orientation: Alert and orientated 3 Cognition: Grossly normal Recent and remote memory: Intact Attention span and concentration: Intact Fund of knowledge: Adequate Mood: "okay" Affect: Euthymic with a full range Diagnoses Adjustment disorder with disruption of mood and conduct. Bipolar disorder, type 1, most recent episode depressed, in full remission. Assessment and Plan Adjustment disorder: Continue Seroquel 100 mg nightly and PRN. Bipolar disorder: Continue lithium. Patient will bring home Parnate, to be dosed. Disposition Potential discharge tomorrow if patient tolerates. Time Spent 15 minutes. Vital Signs Vital Signs Date Time Temp Pulse Resp B/P (MAP) Pulse Ox O2 Delivery O2 Flow Rate FiO2 05/07/19 15:57 98.9 91 16 136/83 (100) 05/05/19 22:51 98 Room Air Current Medications Current Medications Medications (Trade) Dose Ordered Sig/Lynn Route PRN Reason Start Time Stop Time Status Last Admin Dose Admin Acetaminophen (Tylenol Tab) 650 mg Q6HP PRN PO HEADACHE or DISCOMFORT 05/01/19 19:30 Al Hydrox/Mg Hydrox/Simethicone (Mylanta) 30 ml Q4HP PRN PO HEARTBURN/INDIGESTION 05/01/19 19:30 Artificial Tears (Akwa Tears) 2 drop QIDP PRN OU DRY EYES 05/02/19 09:15 Fluticasone Propionate (Flonase 0.05% Nasal [place]) 1 spray DAILY PRN NA CONGESTION 05/02/19 09:15 05/07/19 11:47 Home Med (Med Rec Complete!) ASDIRECTED XX 05/01/19 18:00 05/01/19 18:00 DC Hydroxyzine HCl (Atarax) 25 mg Q6HP PRN PO ANXIETY 05/03/19 11:30 05/06/19 09:54 Ibuprofen (Advil) 400 mg Q6HP PRN PO PAIN 05/02/19 09:15 05/06/19 17:03 Lamotrigine (LaMICtal) 150 mg BID PO 05/02/19 21:00 05/07/19 08:28 [place] Carbonate ([place] Carbonate) 300 mg QHS PO 05/02/19 21:00 05/06/19 21:08 Magnesium Hydroxide (Milk Of Magnesia) 30 ml DAILYPRN PRN PO CONSTIPATION 05/01/19 19:30 05/06/19 13:06 Omeprazole (PriLOSEC) 20 mg DAILY PO 05/02/19 09:00 05/07/19 08:28 Quetiapine Fumarate (SEROquel) 12.5 mg TIDP PRN PO anxiety 05/05/19 15:00 05/07/19 15:13 Quetiapine Fumarate (SEROquel) 50 mg QHS PO 05/03/19 21:00 05/04/19 16:17 DC 05/03/19 21:50 Quetiapine Fumarate (SEROquel) 50 mg QHS PRN PO INSOMNIA 05/02/19 16:00 05/03/19 14:03 DC 05/02/19 20:16 Quetiapine Fumarate (SEROquel) 100 mg QHS PO 05/04/19 21:00 05/06/19 21:09 Ramelteon (Rozerem) 8 mg QHS PO 05/01/19 21:00 05/02/19 15:59 DC 05/01/19 22:11 Senna (Senokot) 2 tab DAILY PRN PO CONSTIPATION 05/02/19 09:15 Allergies Coded Allergies: hydrocodone (Verified Allergy, Unknown, 05/01/19) lisdexamfetamine (Verified Adverse Reaction, Unknown, hallucinations, 05/01/19) trazodone (Verified Adverse Reaction, Unknown, "numbness", 05/01/19) CORNELIO SHARMA DO May 07, 2019 18:14
--- NOTE | 2019-05-07 18:15 | MHIPNPDOC ---
[facility] Progress Note Progress Note Inpatient Progress Note Soraya Jane MRN: N/A Date of : N/A Date of Service: 05/07/2019 History of Present Illness 28-year-old women with a history of reported bipolar disorder, PTSD and borderline personality disorder presents reportedly without any suicidal or homicidal ideation stating that she "thinks she is going manic" with some mild bizarre ideation in the ER. She is known to this provider from previous admissions in 2017. Interval History The patient was met with today. She initially declined to meet with this provider as she stated "while I'm eating." The patient has been notably more behaviorally upset and had initially asked to leave, but when offered to leave she became upset and did not want to leave. She has been apparently trying to feign various bizarre behaviors, but when told that she needs to cease these behaviors she rapidly does. She is observed to have intermittent unusual behaviors, however they are only consistent when in view of a nurse or doctor and these appear to rapidly resolve when the patient feels that she is not being observed. The patient has highly inconsistent presentation, appears to be attempting to feign that she is psychotic, but it has a specific quality that is agreed among the staff to be manufactured. The patient was converted to voluntary status. Review Of Systems Declines to meet. Psychotherapy None on this visit. Vital Signs Reviewed. Mental Status Examination General: Well dressed with good hygiene Speech: Terse Thought processes: Linear and logical MSK: Smooth and coordinated gait, no signs of tremors or involuntary orofacial movements Thought content: Irritated Abstract reasoning, and computation: Intact Description of associations: Intact Description of abnormal or psychotic thoughts: Unclear. Judgment: Limited Insight: Limited Orientation: Alert and orientated 3 Cognition: Grossly normal Recent and remote memory: Intact Attention span and concentration: Intact Fund of knowledge: Adequate Mood: "I don't wanna meet." Affect: Irritable mildly Diagnoses Adjustment disorder with disruption of mood and conduct. Bipolar disorder, type 1, most recent episode depressed, in full remission. Borderline personality disorder. Potentially malingering. Assessment and Plan Adjustment disorder: Continue Seroquel 100 mg nightly and PRN. Bipolar disorder: Continue lithium. Patient will bring home Parnate, to be dosed. Borderline personality disorder/potential malingering: Continue to monitor for discrepancies. Patient will be converted to a voluntary status as she has been denying suicidal or homicidal ideation. Disposition We'll continue to observe over the weekend with potential discharge on Friday once further information is understood. The patient does have a history of bipolar disorder, but her present is markedly different than when I treated her in 2017. Time Spent 10 minutes. Friday Vital Signs Vital Signs Date Time Temp Pulse Resp B/P (MAP) Pulse Ox O2 Delivery O2 Flow Rate FiO2 05/07/19 15:57 98.9 91 16 136/83 (100) 05/05/19 22:51 98 Room Air Current Medications Current Medications Medications (Trade) Dose Ordered Sig/Lynn Route PRN Reason Start Time Stop Time Status Last Admin Dose Admin Acetaminophen (Tylenol Tab) 650 mg Q6HP PRN PO HEADACHE or DISCOMFORT 05/01/19 19:30 Al Hydrox/Mg Hydrox/Simethicone (Mylanta) 30 ml Q4HP PRN PO HEARTBURN/INDIGESTION 05/01/19 19:30 Artificial Tears (Akwa Tears) 2 drop QIDP PRN OU DRY EYES 05/02/19 09:15 Fluticasone Propionate (Flonase 0.05% Nasal [place]) 1 spray DAILY PRN NA CONGESTION 05/02/19 09:15 05/07/19 11:47 Home Med (Med Rec Complete!) ASDIRECTED XX 05/01/19 18:00 05/01/19 18:00 DC Hydroxyzine HCl (Atarax) 25 mg Q6HP PRN PO ANXIETY 05/03/19 11:30 05/06/19 09:54 Ibuprofen (Advil) 400 mg Q6HP PRN PO PAIN 05/02/19 09:15 05/06/19 17:03 Lamotrigine (LaMICtal) 150 mg BID PO 05/02/19 21:00 05/07/19 08:28 [place] Carbonate ([place] Carbonate) 300 mg QHS PO 05/02/19 21:00 05/06/19 21:08 Magnesium Hydroxide (Milk Of Magnesia) 30 ml DAILYPRN PRN PO CONSTIPATION 05/01/19 19:30 05/06/19 13:06 Omeprazole (PriLOSEC) 20 mg DAILY PO 05/02/19 09:00 05/07/19 08:28 Quetiapine Fumarate (SEROquel) 12.5 mg TIDP PRN PO anxiety 05/05/19 15:00 05/07/19 15:13 Quetiapine Fumarate (SEROquel) 50 mg QHS PO 05/03/19 21:00 05/04/19 16:17 DC 05/03/19 21:50 Quetiapine Fumarate (SEROquel) 50 mg QHS PRN PO INSOMNIA 05/02/19 16:00 05/03/19 14:03 DC 05/02/19 20:16 Quetiapine Fumarate (SEROquel) 100 mg QHS PO 05/04/19 21:00 05/06/19 21:09 Ramelteon (Rozerem) 8 mg QHS PO 05/01/19 21:00 05/02/19 15:59 DC 05/01/19 22:11 Senna (Senokot) 2 tab DAILY PRN PO CONSTIPATION 05/02/19 09:15 Allergies Coded Allergies: hydrocodone (Verified Allergy, Unknown, 05/01/19) lisdexamfetamine (Verified Adverse Reaction, Unknown, hallucinations, 05/01/19) trazodone (Verified Adverse Reaction, Unknown, "numbness", 05/01/19) CORNELIO SHARMA DO May 07, 2019 18:15
[2019-05-07] MEDS: LITHIUM CARBONATE 300 MG CAP PO SCH (20:33)
[2019-05-07] MEDS: QUEtiapine FUMARATE 50 MG TAB PO SCH (20:34)
[2019-05-08] MEDS: IBUPROFEN 400 MG TAB PO PRN ×2 (00:28→11:41)
[2019-05-08] MEDS: hydrOXYzine 25 MG TAB PO PRN ×3 (00:37→22:56)
[2019-05-08 06:49] VITALS: BP 114/77
[2019-05-08] MEDS: ACETAMINOPHEN TAB 650MG DOSE (2X325MG) PO PRN ×2 (07:35→15:06)
[2019-05-08] MEDS: OMEPRAZOLE 20 MG CAP PO SCH (08:29)
[2019-05-08] MEDS: lamoTRIgine 100MG TAB PO SCH ×2 (08:30→20:53)
[2019-05-08] MEDS: FLUTICASONE PROP 0.05% NASAL SPRAY 16 GM (FLONASE) PRN (11:40)
[2019-05-08 15:31] VITALS: BP 125/80
[2019-05-08] MEDS: QUEtiapine FUMARATE 50 MG TAB PO SCH (20:52)
[2019-05-08] MEDS: LITHIUM CARBONATE 300 MG CAP PO SCH (20:52)
[2019-05-08] MEDS: QUEtiapine FUMARATE 12.5 MG HALF-TAB PO PRN (22:56)
[2019-05-09 06:05] VITALS: BP 99/50
[2019-05-09] MEDS: FLUTICASONE PROP 0.05% NASAL SPRAY 16 GM (FLONASE) PRN (07:23)
[2019-05-09] MEDS: hydrOXYzine 25 MG TAB PO PRN ×2 (07:23→20:48)
[2019-05-09] MEDS: IBUPROFEN 400 MG TAB PO PRN ×2 (09:18→23:26)
[2019-05-09] MEDS: lamoTRIgine 100MG TAB PO SCH ×2 (09:18→20:47)
[2019-05-09] MEDS: OMEPRAZOLE 20 MG CAP PO SCH (09:18)
[2019-05-09 15:34] VITALS: BP 130/86
[2019-05-09] MEDS: QUEtiapine FUMARATE 12.5 MG HALF-TAB PO PRN (20:47)
[2019-05-09] MEDS: LITHIUM CARBONATE 300 MG CAP PO SCH (20:47)
[2019-05-09] MEDS: QUEtiapine FUMARATE 50 MG TAB PO SCH (20:48)
[2019-05-09] MEDS: OLANZapine ORAL DISINTEGRATING TAB 5MG PO PRN (23:25)
[2019-05-09] MEDS: POLYVINYL ALCOHOL OPHTH SOLN 15 ML(LIQUITEARS) OU PRN (23:26)
[2019-05-10] MEDS ORDERED: LORazepam 2 MG/ML VIAL (J2060) IM STA (01:03)
[2019-05-10] MEDS ORDERED: chlorproMAZINE INJ 50MG/2ML AMP (J3230) IM STA (01:06)
--- NOTE | 2019-05-10 01:20 | IPNPDOC ---
Text Note Date of Service The patient was seen on 05/10/19. NOTE S Per d/w the patient's RN at about 100AM she became agitated, was verbally abusive towards staff and could not be redirected; she received chlorpromazine and lorazepam Currently the patient is c/o of having "pain all over" and declined to comment on what happened prior to my arrival. She O GEN: well nourished and developed MSK: all four extremities are in restraints CVS: RRR/NMRG LUNGS: CTAB on RA ASSESSMENT & PLAN 28 yr old F w biopolar disorder who is agitated. She received meds per the Psychiatrist projection engineer and will remain in 4 point restraints for the next 4 hours. VS,Fishbone, I+O VS, Fishbone, I+O Vital Signs Date Time Temp Pulse Resp B/P (MAP) Pulse Ox O2 Delivery O2 Flow Rate FiO2 05/09/19 15:34 99.3 78 16 130/86 (101) 05/09/19 06:05 Room Air 05/05/19 22:51 98 TARAN FIGUEROA MD May 10, 2019 01:20
[2019-05-10 01:30] VITALS: BP 107/68
[2019-05-10 01:45] VITALS: BP 104/67
[2019-05-10 02:00] VITALS: BP_SYST 92; BP_DIAS 0; BP_DIAS 54
[2019-05-10 06:43] VITALS: BP 106/60
[2019-05-10] MEDS: OMEPRAZOLE 20 MG CAP PO SCH (10:00)
[2019-05-10] MEDS: lamoTRIgine 100MG TAB PO SCH ×2 (10:00→22:06)
--- NOTE | 2019-05-10 10:19 | MHIPNPDOC ---
[facility] Progress Note Progress Note Inpatient Progress Note Soraya Jane MRN: N/A Date of : N/A Date of Service: 05/10/2019 History of Present Illness 28-year-old women with a history of reported bipolar disorder, PTSD and borderline personality disorder presents reportedly without any suicidal or homicidal ideation stating that she "thinks she is going manic" with some mild bizarre ideation in the ER. She is known to this provider from previous admissions in 2017. Interval History The patient was attempted to be met with today, however, she was too lethargic and sedative from multiple PRN medications given over the previous evening. She has had interesting weekend with notable bizarre behavior that has increased to unusual proportions. The patient does have some reported difficulties with controlling her behavior, kissing another psychotic patient and engaging in unusual situations. However, her apologies appear contrived and manufactured, it is unclear however. The hospitalist were consulted due to her lethargy given multiple different PRN's. She continues on a 1:1 due to her lethargy. Review Of Systems Unable to assess due to sedation. Psychotherapy None on this visit. Vital Signs Reviewed. Mental Status Examination General: Well dressed with good hygiene Speech: Disorganized. Thought processes: Linear and logical MSK: Smooth and coordinated gait, no signs of tremors or involuntary orofacial movements Thought content: Irritated Abstract reasoning, and computation: Intact Description of associations: Intact Description of abnormal or psychotic thoughts: Unclear. Judgment: Limited Insight: Limited Orientation: Somnolent. Cognition: Sedated. Recent and remote memory: Intact Attention span and concentration: Impaired. Fund of knowledge: Adequate Mood: "I have nothing to say." Affect: Flat with no reactivity. Diagnoses Adjustment disorder with disruption of mood and conduct. Bipolar disorder, type 1, most recent episode depressed, in full remission. Borderline personality disorder. Potentially malingering. Assessment and Plan Adjustment disorder: Continue Seroquel 100 mg nightly and PRN. Bipolar disorder: Continue lithium. Patient will bring home Parnate, to be dosed. Borderline personality disorder/potential malingering: Will continue to observe, unclear if atypical psychotic symptoms are part of bipolar disorder or po tentially malingering as the patient does appear to have significant reason to want to stay. She appears to be engaging in various unusual behaviors, only intermittently and in front of staff for maximal effect. She is currently heavily sedated from her PRN's and will need further evaluation. Disposition Further evaluation will be needed in order to determine if she is indeed psyc hotic or if she is potentially malingering Time Spent 15 minutes [id number] Friday Vital Signs Vital Signs Date Time Temp Pulse Resp B/P (MAP) Pulse Ox O2 Delivery O2 Flow Rate FiO2 05/10/19 06:43 98.3 77 16 106/60 (75) Room Air 05/10/19 02:15 98 Current Medications Current Medications Medications (Trade) Dose Ordered Sig/Lynn Route PRN Reason Start Time Stop Time Status Last Admin Dose Admin Acetaminophen (Tylenol Tab) 650 mg Q6HP PRN PO HEADACHE or DISCOMFORT 05/01/19 19:30 05/08/19 15:06 Al Hydrox/Mg Hydrox/Simethicone (Mylanta) 30 ml Q4HP PRN PO HEARTBURN/INDIGESTION 05/01/19 19:30 Artificial Tears (Akwa Tears) 2 drop QIDP PRN OU DRY EYES 05/02/19 09:15 05/09/19 23:26 Chlorpromazine HCl (Thorazine) 50 mg STAT STAT IM 05/10/19 01:06 05/10/19 01:07 DC 05/10/19 01:26 Fluticasone Propionate (Flonase 0.05% Nasal [place]) 1 spray DAILY PRN NA CONGESTION 05/02/19 09:15 05/09/19 07:23 Home Med (Med Rec Complete!) ASDIRECTED XX 05/01/19 18:00 05/01/19 18:00 DC Hydroxyzine HCl (Atarax) 25 mg Q6HP PRN PO ANXIETY 05/03/19 11:30 05/09/19 20:48 Ibuprofen (Advil) 400 mg Q6HP PRN PO PAIN 05/02/19 09:15 05/09/19 23:26 Lamotrigine (LaMICtal) 150 mg BID PO 05/02/19 21:00 05/10/19 10:00 [place] Carbonate ([place] Carbonate) 300 mg QHS PO 05/02/19 21:00 05/09/19 20:47 Lorazepam (Ativan) 2 mg STAT STAT IM 05/10/19 01:03 05/10/19 01:06 DC 05/10/19 01:26 Magnesium Hydroxide (Milk Of Magnesia) 30 ml DAILYPRN PRN PO CONSTIPATION 05/01/19 19:30 05/06/19 13:06 Olanzapine (ZyPREXA ZYDIS) 10 mg Q4HP PRN PO ANXIETY/AGITATION 05/09/19 23:20 05/09/19 23:25 Omeprazole (PriLOSEC) 20 mg DAILY PO 05/02/19 09:00 05/10/19 10:00 Quetiapine Fumarate (SEROquel) 12.5 mg TIDP PRN PO anxiety 05/05/19 15:00 05/09/19 20:47 Quetiapine Fumarate (SEROquel) 50 mg QHS PO 05/03/19 21:00 05/04/19 16:17 DC 05/03/19 21:50 Quetiapine Fumarate (SEROquel) 50 mg QHS PRN PO INSOMNIA 05/02/19 16:00 05/03/19 14:03 DC 05/02/19 20:16 Quetiapine Fumarate (SEROquel) 100 mg QHS PO 05/04/19 21:00 05/09/19 20:48 Ramelteon (Rozerem) 8 mg QHS PO 05/01/19 21:00 05/02/19 15:59 DC 05/01/19 22:11 Senna (Senokot) 2 tab DAILY PRN PO CONSTIPATION 05/02/19 09:15 Allergies Coded Allergies: hydrocodone (Verified Allergy, Unknown, 05/01/19) lisdexamfetamine (Verified Adverse Reaction, Unknown, hallucinations, 05/01/19) trazodone (Verified Adverse Reaction, Unknown, "numbness", 05/01/19) CORNELIO SHARMA DO May 10, 2019 10:19
[2019-05-10 16:08] VITALS: BP 108/71
[2019-05-10 16:50] LABS: VENOUS BASE EXCESS -1.5 (-2.0-2.0); VENOUS HCO3 25.5 MEQ/L (23.0-27.0); VENOUS O2 SATURATION 72.5 % (60.0-80.0); VENOUS PARTIAL PRESSURE CO2 52.2 mmHg (38.0-50.0); VENOUS PARTIAL PRESSURE O2 41.3 mmHg (30.0-50.0); VENOUS PH 7.306 UNITS (7.330-7.430); VENOUS STANDARD HCO3 22.7 MEQ/L; VENOUS TOTAL CO2 27.1 MEQ/L (24.0-28.0)
[2019-05-10 17:02] LABS: BASO # 0.1 10^3/uL (0.0-0.2); BASO % 0.7 % (0.0-1.0); EOS # 0.2 10^3/uL (0.0-0.5); EOS % 1.6 % (0.0-3.0); HEMATOCRIT 37.6 % (36.0-47.0); HEMOGLOBIN 12.1 g/dl (12.0-15.5); LYMPH # 2.8 10^3/uL (1.5-5.0); LYMPH % 28.2 % (24.0-44.0); MEAN CORPUSCULAR HEMOGLOBIN 31.5 pg (27.0-33.0); MEAN CORPUSCULAR HGB CONC 32.2 g/dl (32.0-36.5); MEAN CORPUSCULAR VOLUME 97.9 fl (80.0-96.0); MONO # 0.8 10^3/uL (0.0-0.8); MONO % 8.1 % (0.0-5.0); NEUTROPHILS # 6.1 10^3/uL (1.5-8.5); NEUTROPHILS % 61.1 % (36.0-66.0); PLATELET COUNT, AUTOMATED 371 10^3/uL (150-450); RED BLOOD COUNT 3.84 10^6/uL (4.00-5.40)
[2019-05-10] MEDS: IBUPROFEN 400 MG TAB PO PRN (17:09)
[2019-05-10 17:22] LABS: ALBUMIN 3.8 GM/DL (3.2-5.2); ALT/SGPT 43 U/L (12-78); BILIRUBIN,TOTAL 0.6 MG/DL (0.2-1.0); BLOOD UREA NITROGEN 7 MG/DL (7-18); CALCIUM LEVEL 9.2 MG/DL (8.5-10.1); CARBON DIOXIDE LEVEL 27 MEQ/L (21-32); CHLORIDE LEVEL 111 MEQ/L (98-107); CREATININE FOR GFR 1.04 MG/DL (0.55-1.30); GLOMERULAR FILTRATION RATE > 60.0 (>60); GLUCOSE, FASTING 129 MG/DL (70-100); SODIUM LEVEL 143 MEQ/L (136-145); TOTAL PROTEIN 6.7 GM/DL (6.4-8.2)
[2019-05-10] MEDS: OLANZapine ORAL DISINTEGRATING TAB 5MG PO PRN (19:47)
[2019-05-10] MEDS: hydrOXYzine 25 MG TAB PO PRN (19:51)
[2019-05-10] MEDS: QUEtiapine FUMARATE 50 MG TAB PO SCH (22:05)
[2019-05-10] MEDS: LITHIUM CARBONATE 300 MG CAP PO SCH (22:06)
[2019-05-11 06:29] VITALS: BP 106/57
[2019-05-11] MEDS: lamoTRIgine 100MG TAB PO SCH ×2 (09:07→20:24)
[2019-05-11] MEDS: OMEPRAZOLE 20 MG CAP PO SCH (09:07)
[2019-05-11] MEDS: IBUPROFEN 400 MG TAB PO PRN (09:10)
[2019-05-11] MEDS: FLUTICASONE PROP 0.05% NASAL SPRAY 16 GM (FLONASE) PRN (10:39)
--- NOTE | 2019-05-11 10:54 | MHIPNPDOC ---
[facility] Progress Note Progress Note Inpatient Progress Note Soraya Jane MRN: N/A Date of : N/A Date of Service: 05/11/2019 History of Present Illness 28-year-old woman with a history of reported bipolar disorder, PTSD and borderline personality disorder presents reportedly without any suicidal or homicidal ideation stating that she "thinks she is going manic" with some mild bizarre ideation in the ER. She is known to this provider from previous admiss ions in 2017. Interval History The patient is met with today. She reports that she is feeling improved but still has some elevated mood. Discussed with patient treatment options. We'll increase lithium to 300 mg, otherwise, has been doing better with no significant agitation episodes. Nursing staff notes that she still is interestingly enough, very well behaved around other patients but seems to make a point of demonstrating her symptoms in front of nursing staff alone but not when she is not appeared to be observed. Review Of Systems Denies any side effects from her medication such as tremor, dizziness. Reports some sedation from yesterday's medications and some mild dizziness at times. D enies chest pain, shortness of breath or GI upset. Psychotherapy None on this visit. Vital Signs Reviewed. Mental Status Examination General: Well dressed with good hygiene Speech: Fluid Thought processes: Future oriented MSK: Smooth and coordinated gait, no signs of tremors or involuntary orofacial movements Thought content: Irritated Abstract reasoning, and computation: Intact Description of associations: Intact Description of abnormal or psychotic thoughts: Denies suicidal or homicidal ideation. Denies auditory or visual hallucinations. Does not appear to be responding to internal stimuli. Judgment: Improved Insight: Improved Orientation: Alert and oriented x3. Cognition: Grossly intact. Recent and remote memory: Intact Attention span and concentration: Intact. Fund of knowledge: Adequate Mood: "I'm doing good." Affect: Euthymic with near full reactivity. Diagnoses Adjustment disorder with disruption of mood and conduct. Bipolar disorder, type 1, most recent episode depressed, in full remission. Borderline personality disorder. Potentially malingering. Assessment and Plan Adjustment disorder: Continue Seroquel 100 mg nightly and PRN. Bipolar disorder: Increase lithium to 300 mg BID as well as continue home Parnate, unclear if actual psychotic symptoms are malingered. Borderline personality disorder/potential malingering: Continuing to observe, however, patient's spontaneous resolution is still fairly atypical for her previous presentations especially on inpatient units. Disposition Further observation and medication titration and possible discharge tomorrow. Patient on voluntary admission at this time Time Spent 15 minutes. Friday Vital Signs Vital Signs Date Time Temp Pulse Resp B/P (MAP) Pulse Ox O2 Delivery O2 Flow Rate FiO2 05/11/19 06:29 98.4 82 18 106/57 (73) 05/10/19 06:43 Room Air 05/10/19 02:15 98 Laboratory Data 24H Labs Laboratory Tests 2 05/10/19 16:19: Immature Granulocyte % (Auto) 0.3, Neutrophils (%) (Auto) 61.1, Lymphocytes (%) (Auto) 28.2, Monocytes (%) (Auto) 8.1H, Eosinophils (%) (Auto) 1.6, Basophils (%) (Auto) 0.7, Neutrophils # (Auto) 6.1, Lymphocytes # (Auto) 2.8, Monocytes # (Auto) 0.8, Eosinophils # (Auto) 0.2, Basophils # (Auto) 0.1, Nucleated Red Blood Cells % (auto) 0.0, Blood Gas Bicarbonate Standard 22.7, Venous Blood pH 7.306L, Venous Blood Partial Pressure CO2 52.2H, Venous Blood Partial Pressure O2 41.3, Venous Blood Total Carbon Dioxide 27.1, Venous Blood HCO3 25.5, Venous Blood Oxygen Saturation 72.5, Venous Blood Base Excess -1.5, Anion Gap 5L, Glomerular Filtration Rate > 60.0, Calcium Level 9.2, Total Bilirubin 0.6, Aspartate Amino Transf (AST/SGOT) 37, Alanine Aminotransferase (ALT/SGPT) 43, Alkaline Phosphatase 63, Total Protein 6.7, Albumin 3.8, Albumin/Globulin Ratio 1.31 CBC/BMP Laboratory Tests 05/10/19 16:19 Current Medications Current Medications Medications (Trade) Dose Ordered Sig/Lynn Route PRN Reason Start Time Stop Time Status Last Admin Dose Admin Acetaminophen (Tylenol Tab) 650 mg Q6HP PRN PO HEADACHE or DISCOMFORT 05/01/19 19:30 05/08/19 15:06 Al Hydrox/Mg Hydrox/Simethicone (Mylanta) 30 ml Q4HP PRN PO HEARTBURN/INDIGESTION 05/01/19 19:30 Artificial Tears (Akwa Tears) 2 drop QIDP PRN OU DRY EYES 05/02/19 09:15 05/09/19 23:26 Chlorpromazine HCl (Thorazine) 50 mg STAT STAT IM 05/10/19 01:06 05/10/19 01:07 DC 05/10/19 01:26 Fluticasone Propionate (Flonase 0.05% Nasal [place]) 1 spray DAILY PRN NA CONGESTION 05/02/19 09:15 05/11/19 10:39 Home Med (Med Rec Complete!) ASDIRECTED XX 05/01/19 18:00 05/01/19 18:00 DC Hydroxyzine HCl (Atarax) 25 mg Q6HP PRN PO ANXIETY 05/03/19 11:30 05/10/19 19:51 Ibuprofen (Advil) 400 mg Q6HP PRN PO PAIN 05/02/19 09:15 05/11/19 09:10 Lamotrigine (LaMICtal) 150 mg BID PO 05/02/19 21:00 05/11/19 09:07 [place] Carbonate ([place] Carbonate) 300 mg QHS PO 05/02/19 21:00 05/10/19 22:06 Lorazepam (Ativan) 2 mg STAT STAT IM 05/10/19 01:03 05/10/19 01:06 DC 05/10/19 01:26 Magnesium Hydroxide (Milk Of Magnesia) 30 ml DAILYPRN PRN PO CONSTIPATION 05/01/19 19:30 05/06/19 13:06 Olanzapine (ZyPREXA ZYDIS) 10 mg Q4HP PRN PO ANXIETY/AGITATION 05/09/19 23:20 05/10/19 19:47 Omeprazole (PriLOSEC) 20 mg DAILY PO 05/02/19 09:00 05/11/19 09:07 Quetiapine Fumarate (SEROquel) 12.5 mg TIDP PRN PO anxiety 05/05/19 15:00 05/09/19 20:47 Quetiapine Fumarate (SEROquel) 50 mg QHS PO 05/03/19 21:00 05/04/19 16:17 DC 05/03/19 21:50 Quetiapine Fumarate (SEROquel) 50 mg QHS PRN PO INSOMNIA 05/02/19 16:00 05/03/19 14:03 DC 05/02/19 20:16 Quetiapine Fumarate (SEROquel) 100 mg QHS PO 05/04/19 21:00 05/10/19 22:05 Ramelteon (Rozerem) 8 mg QHS PO 05/01/19 21:00 05/02/19 15:59 DC 05/01/19 22:11 Senna (Senokot) 2 tab DAILY PRN PO CONSTIPATION 05/02/19 09:15 Allergies Coded Allergies: hydrocodone (Verified Allergy, Unknown, 05/01/19) lisdexamfetamine (Verified Adverse Reaction, Unknown, hallucinations, ) trazodone (Verified Adverse Reaction, Unknown, "numbness", 05/01/19) CORNELIO SHARMA DO May 11, 2019 10:54
--- NOTE | 2019-05-11 12:24 | IPNPDOC ---
Subjective Date Seen The patient was seen on 05/10/19 Subjective Chief Complaint/HPI Patient is a 30 year old female admitted to [facility] with a Diagnosis of unspecified psychosis. She is being assessed by the hospitalist group due to new onset AMS. Ms. Livingston has a PMHx which includes Bipolar 1 Disorder, Manic Psychosis, Polysubstance Abuse and Lyme Disease (followed by Dr. Hummel). During my examination, Ms. Livingston was mumbling ineligibly, and appeared extremely lethargic. She closed her eyes during the exam and may have fallen asleep. Per staff: Patient appears unwell this morning. It is unusual for her to be so lethargic however, she can exhibit somatization disorder at times. A review of her current medications was completed. General: Reports: ROS Unobtainable ATTENDING NOTE I have personally performed a face to face diagnostic evaluation on this patient. I have reviewed and agree with the care plan. Objective Physical Examination General Exam: Negative: Other (extremely lethargic; appears unwell ) Eye Exam: Negative: Other Eye Symptoms (pinpoint pupils ) ENT Exam: Positive: Atraumatic; Negative: Other ENT (unable to examine due to pt lack of cooperation ) Chest Exam: Positive: Clear to auscultation, Normal air movement Heart Exam: Positive: Rate Normal, Normal S1, Normal S2 Abdomen Exam: Positive: Normal bowel sounds; Negative: Tenderness (LUQ with deep palpation ) Extremity Exam: Positive: Normal pulses; Negative: Clubbing, Cyanosis, Edema Skin Exam: Positive: Nl turgor and temperature, Other skin issue (pale) Neuro Exam: Negative: Normal Gait (patient remained in bed throughout exam ), Normal Speech (garbled speech ) Assessment /Plan Assessment Patient is a 30 year old female admitted to [facility] with a Diagnosis of unspecified psychosis. She is being assessed by the hospitalist group due to new onset AMS. AMS: Review of medications: Seroquel 100mg (initiated 05/04/19), Olanzapine 10mg. Overnight received: Ativan 2mg and Thorazine 50mg as she had become agitated. Patient possibly sedated from nighttime medications. 05/02/18 TSH 2.16; Li levels - confirm when last checked and re-check if necessary. BP checked at bedside: 127/87 (64) Pending labs: CBC w/diff, BMP, UA (reflex culture), ABG. Nursing staff will reconsult if they become concerned while labs pending. Patient to be re-assessed 05/11/19 unless her status deteriorates overnight. Lyme Disease: Management per Dr. Hummel Plan/VTE VTE Prophylaxis Ordered?: No VS, I&O, 24H, Fishbone Vital Signs/I&O Vital Signs Date Time Temp Pulse Resp B/P (MAP) Pulse Ox O2 Delivery O2 Flow Rate FiO2 05/11/19 06:29 98.4 82 18 106/57 (73) 05/10/19 06:43 Room Air 05/10/19 02:15 98 Laboratory Data 24H LABS Laboratory Tests 2 05/10/19 16:19: Immature Granulocyte % (Auto) 0.3, Neutrophils (%) (Auto) 61.1, Lymphocytes (%) (Auto) 28.2, Monocytes (%) (Auto) 8.1H, Eosinophils (%) (Auto) 1.6, Basophils (%) (Auto) 0.7, Neutrophils # (Auto) 6.1, Lymphocytes # (Auto) 2.8, Monocytes # (Auto) 0.8, Eosinophils # (Auto) 0.2, Basophils # (Auto) 0.1, Nucleated Red Blood Cells % (auto) 0.0, Blood Gas Bicarbonate Standard 22.7, Venous Blood pH 7.306L, Venous Blood Partial Pressure CO2 52.2H, Venous Blood Partial Pressure O2 41.3, Venous Blood Total Carbon Dioxide 27.1, Venous Blood HCO3 25.5, Venous Blood Oxygen Saturation 72.5, Venous Blood Base Excess -1.5, Anion Gap 5L, Glomerular Filtration Rate > 60.0, Calcium Level 9.2, Total Bilirubin 0.6, Aspar mendez Amino Transf (AST/SGOT) 37, Alanine Aminotransferase (ALT/SGPT) 43, Alkaline Phosphatase 63, Total Protein 6.7, Albumin 3.8, Albumin/Globulin Ratio 1.31 CBC/BMP Laboratory Tests 05/10/19 16:19 ABBEY GORDILLO PA-C May 11, 2019 09:53 CLAIRE ONEIL MD May 11, 2019 19:16
[2019-05-11] MEDS: LITHIUM CARBONATE 300 MG CAP PO SCH ×2 (12:33→20:24)
[2019-05-11] MEDS: SENNA 8.6 MG TAB (SENOKOT) PO PRN (12:34)
--- NOTE | 2019-05-11 12:42 | IPNPDOC ---
Subjective Date Seen The patient was seen on 05/11/19. Subjective Chief Complaint/HPI Patient is a 30 year old female admitted to [facility] with a Diagnosis of unspecified psychosis. She is being re-assessed by the hospitalist group today due to new onset AMS on 05/10/19. Ms. Livingston has a PMHx which includes Bipolar 1 Disorder, Manic Psychosis, Polysubstance Abuse and Lyme Disease (followed by Dr. Hummel). Today, Ms. Jane is feeling much better. She is out of bed, and her interactions with me were pleasant and appropriate. She is happy she 'had some sleep'. Patient denied any medical issues at this time. General: Reports: Normal Appetite; Denies: Chills, Night Sweats, Fatigue, Malaise Constitutional: Denies: Chills, Fever, Night Sweats Eyes: Denies: Pain, Vision change ENT: Denies: Head Aches Skin: Denies: Rash, Lesions Pulmonary: Denies: Dyspnea, Cough Cardiovascular: Denies: Chest Pain, Palpitations, Lt Headedness Gastrointestinal: Denies: Nausea, Vomiting, Abdominal Pain Genitourinary: Denies: Dysuria Hematologic: Denies: Bruising Musculoskeletal: Denies: Neck Pain, Back Pain, Joint Pain, Muscle Pain, Spasms Neurological: Denies: Weakness, Numbness, Change in speech, Confusion Psych: Reports: Mood Normal ATTENDING NOTE I have personally performed a face to face diagnostic evaluation on this patient. I have reviewed and agree with the care plan. Objective Physical Examination General Exam: Positive: Alert, Cooperative, No Acute Distress Eye Exam: Positive: Conjunctiva & lids normal ENT Exam: Positive: Atraumatic, Mucous membr. moist/pink, Pharynx Normal Chest Exam: Positive: Clear to auscultation, Normal air movement Heart Exam: Positive: Rate Normal, Normal S1, Normal S2 Abdomen Exam: Positive: Normal bowel sounds; Negative: Tenderness Extremity Exam: Positive: Normal pulses; Negative: Clubbing, Cyanosis, Edema Skin Exam: Positive: Nl turgor and temperature Neuro Exam: Positive: Normal Gait, Normal Speech Psych Exam: Positive: Mood NL Assessment /Plan Assessment Patient is a 30 year old female admitted to [facility] with a Diagnosis of unspecified psychosis. She is being re-assessed by the hospitalist group due to new onset AMS on 05/10/19. AMS: Labs reviewed: CBC w/diff, BMP, UA (reflex culture), ABG. Please see results below. Acute symptoms have resolved. Medicine will sign off at this time. Please re-consult as needed. Plan/VTE VTE Prophylaxis Ordered?: No VS, I&O, 24H, Fishbone Vital Signs/I&O Vital Signs Date Time Temp Pulse Resp B/P (MAP) Pulse Ox O2 Delivery O2 Flow Rate FiO2 05/11/19 06:29 98.4 82 18 106/57 (73) 05/10/19 06:43 Room Air 05/10/19 02:15 98 Laboratory Data 24H LABS Laboratory Tests 2 05/10/19 16:19: Immature Granulocyte % (Auto) 0.3, Neutrophils (%) (Auto) 61.1, Lymphocytes (%) (Auto) 28.2, Monocytes (%) (Auto) 8.1H, Eosinophils (%) (Auto) 1.6, Basophils (%) (Auto) 0.7, Neutrophils # (Auto) 6.1, Lymphocytes # (Auto) 2.8, Monocytes # (Auto) 0.8, Eosinophils # (Auto) 0.2, Basophils # (Auto) 0.1, Nucleated Red Blood Cells % (auto) 0.0, Blood Gas Bicarbonate Standard 22.7, Venous Blood pH 7.306L, Venous Blood Partial Pressure CO2 52.2H, Venous Blood Partial Pressure O2 41.3, Venous Blood Total Carbon Dioxide 27.1, Venous Blood HCO3 25.5, Venous Blood Oxygen Saturation 72.5, Venous Blood Base Excess -1.5, Anion Gap 5L, Glomerular Filtration Rate > 60.0, Calcium Level 9.2, Total Bilirubin 0.6, Aspartate Amino Transf (AST/SGOT) 37, Alanine Aminotransferase (ALT/SGPT) 43, Alkaline Phosphatase 63, Total Protein 6.7, Albumin 3.8, Albumin/Globulin Ratio 1.31 CBC/BMP Laboratory Tests 05/10/19 16:19 ABBEY GORDILLO PA-C May 11, 2019 12:42 CLAIRE ONEIL MD May 11, 2019 19:17
[2019-05-11 16:25] VITALS: BP 115/89
[2019-05-11] MEDS: POLYVINYL ALCOHOL OPHTH SOLN 15 ML(LIQUITEARS) OU PRN (20:23)
[2019-05-11] MEDS: QUEtiapine FUMARATE 50 MG TAB PO SCH (20:24)
[2019-05-11] MEDS: hydrOXYzine 25 MG TAB PO PRN (20:24)
[2019-05-11] MEDS: PILL CUTTER 1 EACH XX PRN (20:27)
[2019-05-12 06:21] VITALS: BP 118/64
[2019-05-12] MEDS: SENNA 8.6 MG TAB (SENOKOT) PO PRN (07:53)
[2019-05-12] MEDS: IBUPROFEN 400 MG TAB PO PRN (07:53)
[2019-05-12] MEDS: POLYVINYL ALCOHOL OPHTH SOLN 15 ML(LIQUITEARS) OU PRN (07:55)
[2019-05-12] MEDS: FLUTICASONE PROP 0.05% NASAL SPRAY 16 GM (FLONASE) PRN (09:13)
[2019-05-12] MEDS: OMEPRAZOLE 20 MG CAP PO SCH (09:13)
[2019-05-12] MEDS: PILL CUTTER 1 EACH XX PRN (09:13)
[2019-05-12] MEDS: LITHIUM CARBONATE 300 MG CAP PO SCH (09:13)
[2019-05-12] MEDS: lamoTRIgine 100MG TAB PO SCH (09:14)
[2019-05-12] MEDS ORDERED: LITH300C PO (09:58)
--- NOTE | 2019-05-12 10:03 | MHDSPDOC ---
[facility] Discharge Summary Discharge Summary DATE OF ADMISSION: May 01, 2019 at 19:26 DATE OF DISCHARGE: 05/12/19 Discharge Soraya Jane MRN: N/A Date of : N/A Date of Service: 05/12/2019 Diagnoses Adjustment disorder with disruption of mood and conduct. Bipolar disorder, type 1, most recent episode depressed, in full remission. Borderline personality disorder. Potentially malingering. History of Present Illness 28-year-old woman with a history of reported bipolar disorder, PTSD and borderline personality disorder presents reportedly without any suicidal or homicidal ideation stating that she "thinks she is going manic" with some mild bizarre ideation in the ER. She is known to this provider from previous admis sions in 2017. Consultants Involved Hospitalist/PCP screening Treatment and Progress On The Unit The patient was admitted to the inpatient unit and started on low-dose Seroquel, titrated up to 100 mg nightly with positive effects. The patient did not dem onstrate any psychotic symptoms when she had arrived and otherwise had been doing well. When discharge was approached on multiple different occasions, the patient suddenly manifests unusual and atypical symptoms only when in the presence of a nurse or doctor. On observation, there was notably a lack of disorganization or paranoid thinking. The patient was observed after she was con verted to a voluntary status, she reportedly had some episodes of agitation that were concerned by the treatment team to be manufactured to continue her admission as she reportedly did not want to return home as she did not like living with her parents and wanted to stay until her TLS application had been completed. The patient was increased on her lithium to 300 mg BID with positive results. After a significant amount of time, the patient had stopped endorsing any psychotic symptoms as she was no longer getting specific attention for them, subsequently these vanished as our attention towards them did as well, further increasing my suspicion that these are manufactured as she did not present with symptoms consistent with her manic episodes that she has had in the past as I treated her in 2017. The patient has a history of borderline personality disorder and demonstrates significant staff splitting during her care as consistent with her previous admissions when she has resolved. The patient on the day of discharge declined further voluntary admission and did not meet involuntary criteria. She had been denying suicidal and homicidal ideation with a normal mental status exam. She had been behaving well over 24 hours without any difficulties. Cooperated with her principal planner and endorsed no further psychotic symptoms to the treatment team. Discharge Assessment 28-year-old woman with a history of reported bipolar disorder, PTSD and borderline personality disorder that presents initially on relatively vague john unds with no notable imminent danger, who suddenly upon getting closer to discharge becomes much more irritable, much more upset and appears demonstrating psychotics symptoms only around healthcare providers, being notably different in group and around other patients when she does not feel like she is being observed, further increasing our suspicion that she was more likely suffering from adjustment to her current situation and had attempted to malinger. Mental Status Examination General: Well dressed with good hygiene Speech: Spontaneous and fluid Thought processes: Linear and logical MSK: Smooth and coordinated gait, no signs of tremors or involuntary orofacial movements Thought content: Future orientated Abstract reasoning, and computation: Intact Description of associations: Intact Description of abnormal or psychotic thoughts: Denies any suicidal or homicidal ideation. Denies any auditory or visual hallucinations. Does not appear to be responding to internal stimuli. Does not appear to be endorsing any bizarre or paranoid ideation. Judgment: fair Insight: fair Orientation: Alert and orientated 3 Cognition: Grossly normal Recent and remote memory: Intact Attention span and concentration: Intact Fund of knowledge: Adequate Mood: "okay" Affect: Euthymic with a full range Follow Up The social work team worked during the predischarge meeting in order to evaluate for further issues of lethality address them fully before discharge. They worked on safety planning with the patient's family members in order to ensure that the patient will have a safe and effective discharge. Time Spent The amount of time spent in the coordination of care for this patient was approximately 60 minutes. Friday Vital Signs/I&Os Vital Signs Date Time Temp Pulse Resp B/P (MAP) Pulse Ox O2 Delivery O2 Flow Rate FiO2 05/12/19 06:21 97.3 87 18 118/64 (82) 05/10/19 06:43 Room Air 05/10/19 02:15 98 Medications Scheduled Ergocalciferol (Vitamin D2) (Drisdol) 50,000 Unit Capsule, 50,000 UNIT PO QWEEK, (Reported) MONDAYS Lamotrigine (Lamictal) 150 Mg Tablet, 150 MG PO BID, (Reported) Merkel Carbonate (Merkel Carbonate) 300 Mg Capsule, 300 MG PO DAILY, (Reported) Merkel Carbonate (Merkel Carbonate) 300 Mg Capsule, 300 MG PO BID for mood for 7 Days, #14 Omeprazole (Omeprazole) 20 Mg Capsule.dr, 20 MG PO DAILY, (Reported) Quetiapine Fumarate (Quetiapine Fumarate) 25 Mg Tablet, 100 MG PO QPM for mood for 7 Days, #7 Tranylcypromine Sulfate (Parnate) 10 Mg Tablet, 10 MG PO BID, (Reported) Scheduled PRN Carboxymethylcellulose Sodium (Refresh Tears) 15 Ml Drops, 1 DROP OU TID PRN for DRY EYES, (Reported) Fluticasone Propionate (Fluticasone Propionate) 50 Mcg/Act Spr, 1 SPRAY NA DAILY PRN for CONGESTION, (Reported) Sennosides (Senna) 8.6 Mg Tablet, 2 TAB PO DAILY PRN for CONSTIPATION, (Reported) Allergies Coded Allergies: hydrocodone (Verified Allergy, Unknown, 05/01/19) lisdexamfetamine (Verified Adverse Reaction, Unknown, hallucinations, 05/01/19) trazodone (Verified Adverse Reaction, Unknown, "numbness", 05/01/19) CORNELIO SHARMA DO May 12, 2019 10:03
[2019-05-12] MEDS: hydrOXYzine 25 MG TAB PO PRN (13:28)
[2019-05-13] MEDS ORDERED: LITH300T2 PO (17:09)
[2019-05-13] MEDS ORDERED: VITA50005 PO (17:09)
[2019-05-13] MEDS ORDERED: SERO1TAB3 PO (17:09)
== END 2019-05-12 13:30 | disposition home or self-care (01) | DRG 882 ==
LOC: M ED 16:38 → M ED INP 19:26 → M PSY 20:40
PROVIDERS: ADMIT Psychiatry & Neurology Addiction Medicine; ATTEND Psychiatry & Neurology Addiction Medicine
DX: F43.25 Adjustment disorder with mixed disturbance of emotions and conduct (principal); F50.2 Bulimia nervosa; F50.00 Anorexia nervosa, unspecified; F31.30 Bipolar disorder, current episode depressed, mild or moderate severity, unspecified; F60.3 Borderline personality disorder; Z76.5 Malingerer [conscious simulation]; Z79.899 Other long term (current) drug therapy; Z88.8 Allergy status to other drugs, medicaments and biological substances; Z88.5 Allergy status to narcotic agent; G40.909 Epilepsy, unspecified, not intractable, without status epilepticus; K21.9 Gastro-esophageal reflux disease without esophagitis; K59.00 Constipation, unspecified

== ENCOUNTER 2019-05-13 12:38 | Emergency (ER) | payer MEDICARE, MEDICAID ==
[~2019-05-13] VITALS: Ht 162.6 cm; Wt 54.5 kg
[~2019-05-13 12:38] MED LIST changes: +DRIS50003 PO; +LAMI1TAB8 PO; +OMEP-218 PO; +QUET1TAB7 PO; +SENN-83 PO; +[UNRECOGNIZED DRUG - CODE] PO
[2019-05-13 13:51] LABS: HEMATOCRIT 38.7 % (36.0-47.0); HEMOGLOBIN 12.4 g/dl (12.0-15.5); MEAN CORPUSCULAR HEMOGLOBIN 31.8 pg (27.0-33.0); MEAN CORPUSCULAR VOLUME 99.2 fl (80.0-96.0); PLATELET COUNT, AUTOMATED 420 10^3/uL (150-450); WHITE BLOOD COUNT 12.2 10^3/uL (4.0-10.0)
[2019-05-13 14:15] LABS: AMPHETAMINES LEVEL URINE NEGATIVE (NEGATIVE); BARBITURATES URINE NEGATIVE (NEGATIVE); BENZODIAZEPINES URINE NEGATIVE (NEGATIVE); CANNABINOIDS URINE NEGATIVE (NEGATIVE); COCAINE METABOLITE URINE NEGATIVE (NEGATIVE); METHADONE URINE NEGATIVE (NEGATIVE); OPIATES URINE NEGATIVE (NEGATIVE); PHENCYCLIDINE URINE NEGATIVE (NEGATIVE)
[2019-05-13 14:22] LABS: ACETAMINOPHEN LEVEL < 2.0 UG/ML (10.0-30.0); ALBUMIN 4.1 GM/DL (3.2-5.2); ALT/SGPT 40 U/L (12-78); BILIRUBIN,DIRECT < 0.1 MG/DL (0.0-0.2); BILIRUBIN,TOTAL 0.3 MG/DL (0.2-1.0); BLOOD UREA NITROGEN 8 MG/DL (7-18); CALCIUM LEVEL 9.6 MG/DL (8.5-10.1); CARBON DIOXIDE LEVEL 28 MEQ/L (21-32); CHLORIDE LEVEL 104 MEQ/L (98-107); CREATININE FOR GFR 1.02 MG/DL (0.55-1.30); ETHYL ALCOHOL (ETHANOL) < 0.003 % (0.000-0.010); GLOMERULAR FILTRATION RATE > 60.0 (>60); GLUCOSE, FASTING 103 MG/DL (70-100); POTASSIUM SERUM 4.1 MEQ/L (3.5-5.1); SALICYLATE LEVEL < 1.7 MG/DL (5.0-30.0); SODIUM LEVEL 141 MEQ/L (136-145); THYROID STIMULATING HORMONE 0.678 uIU/ML (0.358-3.740); TOTAL PROTEIN 7.5 GM/DL (6.4-8.2)
[2019-05-13] MEDS ORDERED: LITH300T2 PO (17:09)
[2019-05-13] MEDS ORDERED: VITA50005 PO (17:09)
[2019-05-13] MEDS ORDERED: SERO1TAB3 PO (17:09)
--- NOTE | 2019-05-13 22:11 | ECGEPIP ---
[facility] - ED Test Date: 2019-05-13 Pat Name: AMOR KATHLEEN Department: Room: - Gender: Female [employer] Operator: : 1990 Requested By: Fay Cochran Order Number: [id number] Reading MD: Fay Cochran Measurements Intervals Chancellor Rate: 74 P: 51 MI: 138 QRS: 55 QRSD: 78 T: 51 QT: 351 QTc: 391 Interpretive Statements SINUS RHYTHM NSTTW abnormalities DECREASED RATE 10/13/17 Electronically Signed on 05-13-2019 22:11:08 EST by Fay Cochran
[2019-05-13] MEDS ORDERED: lamoTRIgine 100MG TAB PO ONE (22:15)
[2019-05-13] MEDS ORDERED: LITHIUM CARBONATE 300 MG CAP PO ONE (22:15)
[2019-05-13] MEDS ORDERED: QUEtiapine FUMARATE 50 MG TAB PO ONE (22:15)
[2019-05-13 22:32] LABS: LITHIUM LEVEL 0.58 MEQ/L (0.60-1.20)
[2019-05-14] MEDS ORDERED: lamoTRIgine 100MG TAB PO ONE (08:00)
[2019-05-14] MEDS ORDERED: LITHIUM CARBONATE 300 MG CAP PO ONE (08:00)
[2019-05-14 08:43] VITALS: BP 118/80
== END 2019-05-14 08:46 ==
LOC: M ED 12:38
DX: F29 Unspecified psychosis not due to a substance or known physiological condition (principal); F31.9 Bipolar disorder, unspecified; Z79.899 Other long term (current) drug therapy; Z88.8 Allergy status to other drugs, medicaments and biological substances
CPT/HCPCS: 36415; 80048; 80076; 80178; 80307; 84443; 85027; 93005; 99285; G0480

== ENCOUNTER 2019-06-02 17:27 | Emergency (ER) | payer MEDICARE, MEDICAID ==
[~2019-06-02 17:27] MED LIST changes: +LITH300T2 PO; +SERO1TAB3 PO; +VITA50005 PO
[2019-06-02] MEDS ORDERED: diphenhydrAMINE INJ 50MG/ML VIAL (J1200) IM ONE (17:45)
[2019-06-02] MEDS ORDERED: HALOPERIDOL 5 MG/ML VIAL (J1630) IM ONE (17:45)
[2019-06-02 20:00] LABS: HEMATOCRIT 34.9 % (36.0-47.0); HEMOGLOBIN 10.7 g/dl (12.0-15.5); MEAN CORPUSCULAR HEMOGLOBIN 31.1 pg (27.0-33.0); MEAN CORPUSCULAR HGB CONC 30.7 g/dl (32.0-36.5); MEAN CORPUSCULAR VOLUME 101.5 fl (80.0-96.0); PLATELET COUNT, AUTOMATED 371 10^3/uL (150-450); RED BLOOD COUNT 3.44 10^6/uL (4.00-5.40); WHITE BLOOD COUNT 14.8 10^3/uL (4.0-10.0)
[2019-06-02 20:29] LABS: ACETAMINOPHEN LEVEL < 2.0 UG/ML (10.0-30.0); ALBUMIN 3.4 GM/DL (3.2-5.2); ALT/SGPT 37 U/L (12-78); BILIRUBIN,DIRECT 0.1 MG/DL (0.0-0.2); BILIRUBIN,TOTAL 0.4 MG/DL (0.2-1.0); BLOOD UREA NITROGEN 9 MG/DL (7-18); CALCIUM LEVEL 8.5 MG/DL (8.5-10.1); CARBON DIOXIDE LEVEL 23 MEQ/L (21-32); CHLORIDE LEVEL 114 MEQ/L (98-107); CREATININE FOR GFR 0.92 MG/DL (0.55-1.30); ETHYL ALCOHOL (ETHANOL) < 0.003 % (0.000-0.010); GLOMERULAR FILTRATION RATE > 60.0 (>60); GLUCOSE, FASTING 84 MG/DL (70-100); POTASSIUM SERUM 3.8 MEQ/L (3.5-5.1); SALICYLATE LEVEL < 1.7 MG/DL (5.0-30.0); SODIUM LEVEL 144 MEQ/L (136-145); TOTAL PROTEIN 6.7 GM/DL (6.4-8.2)
[2019-06-03 07:17] LABS: AMPHETAMINES LEVEL URINE NEGATIVE (NEGATIVE); BARBITURATES URINE NEGATIVE (NEGATIVE); BENZODIAZEPINES URINE NEGATIVE (NEGATIVE); CANNABINOIDS URINE NEGATIVE (NEGATIVE); COCAINE METABOLITE URINE NEGATIVE (NEGATIVE); METHADONE URINE NEGATIVE (NEGATIVE); OPIATES URINE NEGATIVE (NEGATIVE); PHENCYCLIDINE URINE NEGATIVE (NEGATIVE)
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
[2019-06-03] MEDS ORDERED: IBUPROFEN 600 MG TAB As Ordered ONE (09:53)
[2019-06-03] MEDS ORDERED: IBUPROFEN 600 MG TAB PO ONE (10:00)
[2019-06-03 10:35] VITALS: BP 124/71
== END 2019-06-03 10:37 | disposition home or self-care (01) ==
LOC: M ED 17:27
DX: F31.9 Bipolar disorder, unspecified (principal); F41.9 Anxiety disorder, unspecified; Z88.5 Allergy status to narcotic agent; Z88.8 Allergy status to other drugs, medicaments and biological substances; F17.218 Nicotine dependence, cigarettes, with other nicotine-induced disorders
CPT/HCPCS: 36415; 80048; 80076; 80307; 84443; 85027; 96372; 99285; G0480; J1200; J1630

== ENCOUNTER 2019-06-06 20:09 | Inpatient (IN) | payer MEDICARE, MEDICAID ==
[~2019-06-06] VITALS: Ht 162.6 cm; Wt 64.0 kg
[~2019-06-06 20:09] MED LIST changes: -OMEP-172 PO; +OMEP1CAP73 PO
[2019-06-06 20:59] LABS: HEMATOCRIT 38.1 % (36.0-47.0); HEMOGLOBIN 11.9 g/dl (12.0-15.5); MEAN CORPUSCULAR HEMOGLOBIN 31.6 pg (27.0-33.0); MEAN CORPUSCULAR HGB CONC 31.2 g/dl (32.0-36.5); MEAN CORPUSCULAR VOLUME 101.3 fl (80.0-96.0); PLATELET COUNT, AUTOMATED 464 10^3/uL (150-450); RED BLOOD COUNT 3.76 10^6/uL (4.00-5.40)
[2019-06-06 21:18] LABS: HCG, SERUM QUALITATIVE NEGATIVE (NEGATIVE)
[2019-06-06] MEDS ORDERED: HYDR-643 PO (21:18)
[2019-06-06] MEDS ORDERED: VITA50005 PO (21:18)
[2019-06-06] MEDS ORDERED: FLUTISP NARES (21:18)
[2019-06-06] MEDS ORDERED: LAMO150T3 PO (21:18)
[2019-06-06] MEDS ORDERED: SENN-83 PO (21:18)
[2019-06-06] MEDS ORDERED: QUET5TAB (21:18)
[2019-06-06] MEDS ORDERED: LITH300C PO (21:18)
[2019-06-06] MEDS ORDERED: OMEP-218 PO (21:18)
[2019-06-06 21:31] LABS: ACETAMINOPHEN LEVEL < 2.0 UG/ML (10.0-30.0); ALT/SGPT 30 U/L (12-78); AMPHETAMINES LEVEL URINE NEGATIVE (NEGATIVE); BARBITURATES URINE NEGATIVE (NEGATIVE); BENZODIAZEPINES URINE NEGATIVE (NEGATIVE); BILIRUBIN,DIRECT < 0.1 MG/DL (0.0-0.2); BILIRUBIN,TOTAL 0.2 MG/DL (0.2-1.0); BLOOD UREA NITROGEN 16 MG/DL (7-18); CALCIUM LEVEL 9.8 MG/DL (8.5-10.1); CANNABINOIDS URINE NEGATIVE (NEGATIVE); CARBON DIOXIDE LEVEL 25 MEQ/L (21-32); CHLORIDE LEVEL 110 MEQ/L (98-107); COCAINE METABOLITE URINE NEGATIVE (NEGATIVE); CREATININE FOR GFR 1.16 MG/DL (0.55-1.30); ETHYL ALCOHOL (ETHANOL) < 0.003 % (0.000-0.010); GLOMERULAR FILTRATION RATE 58.8 (>60); GLUCOSE, FASTING 105 MG/DL (70-100); METHADONE URINE NEGATIVE (NEGATIVE); OPIATES URINE NEGATIVE (NEGATIVE); PHENCYCLIDINE URINE NEGATIVE (NEGATIVE); POTASSIUM SERUM 4.3 MEQ/L (3.5-5.1); SALICYLATE LEVEL < 1.7 MG/DL (5.0-30.0); SODIUM LEVEL 142 MEQ/L (136-145); TOTAL PROTEIN 7.8 GM/DL (6.4-8.2)
[2019-06-06 21:48] LABS: LITHIUM LEVEL 0.58 MEQ/L (0.60-1.20)
--- NOTE | 2019-06-06 22:58 | REP ---
Clinical: Chest pain and leukocytosis . Comparison: 07/21/2011 . Technique: PA and lateral. Findings: The mediastinum and cardiac silhouette are normal. The lung wright are clear and without acute consolidation, effusion, or pneumothorax. The skeletal structures are intact and normal. Impression: 1. No acute cardiopulmonary process. Electronically Signed by Ambrosio Ahumada MD 06/06/2019 10:49 P
[2019-06-06 23:31] LABS: APPEARANCE, URINE CLEAR (CLEAR); BACTERIA, URINE AUTO 1+ (NEGATIVE); BILIRUBIN, URINE AUTO NEGATIVE (NEGATIVE); BLOOD, URINE BLOOD NEGATIVE (NEGATIVE); COLOR, URINE STRAW (YELLOW); GLUCOSE, URINE (UA) AUTO NEGATIVE (NEGATIVE); KETONE, URINE AUTO NEGATIVE (NEGATIVE); LEUKOCYTE ESTERASE, URINE AUTO NEGATIVE (NEGATIVE); NITRITE, URINE AUTO NEGATIVE (NEGATIVE); PROTEIN, URINE AUTO NEGATIVE (NEGATIVE); RBC, URINE AUTO 1 /HPF (0-3); SPECIFIC GRAVITY URINE AUTO 1.005 (1.002-1.035); SQUAMOUS EPITHELIAL CELL UR AU 1 /HPF (0-6); UROBILINOGEN, URINE AUTO 0.2 mg/dL (0.0-2.0); WBC, URINE AUTO 0 /HPF (0-3)
[2019-06-07] MEDS ORDERED: chlorproMAZINE INJ 50MG/2ML AMP (J3230) IM STA (05:31)
[2019-06-07] MEDS ORDERED: QUET1TAB7 PO (11:50)
[2019-06-07] MEDS ORDERED: MED REC COMMENT (12:02)
[2019-06-07] MEDS ORDERED: IBUPROFEN 400 MG TAB PO PRN (12:45)
[2019-06-07] MEDS: OMEPRAZOLE 20 MG CAP PO SCH (15:35)
[2019-06-07] MEDS: QUEtiapine FUMARATE 25 MG TAB PO SCH ×2 (15:35→21:00)
[2019-06-07] MEDS: hydrOXYzine 10 MG TAB PO SCH ×2 (15:35→21:08)
[2019-06-07] MEDS: lamoTRIgine 100MG TAB PO SCH (15:35)
[2019-06-07] MEDS: LITHIUM CARBONATE 300 MG CAP PO SCH ×2 (15:35→21:00)
[2019-06-07] MEDS: OLANZapine ORAL DISINTEGRATING TAB 5MG PO PRN (15:51)
[2019-06-07] MEDS: FLUTICASONE PROP 0.05% NASAL SPRAY 16 GM (FLONASE) NARES SCH (16:34)
[2019-06-07] MEDS ORDERED: chlorproMAZINE INJ 50MG/2ML AMP (J3230) IM ONE (16:45)
[2019-06-07] MEDS ORDERED: HALOPERIDOL 5 MG/ML VIAL (J1630) IM STA (19:58)
[2019-06-07] MEDS ORDERED: diphenhydrAMINE INJ 50MG/ML VIAL (J1200) IM STA (19:58)
[2019-06-07] MEDS ORDERED: LORazepam 2 MG/ML VIAL (J2060) IM STA (19:58)
[2019-06-07] MEDS ORDERED: diphenhydrAMINE INJ 50MG/ML VIAL (J1200) As Ordered ONE (20:00)
[2019-06-07] MEDS ORDERED: LORazepam 2 MG/ML VIAL (J2060) As Ordered ONE (20:00)
[2019-06-07] MEDS ORDERED: HALOPERIDOL 5 MG/ML VIAL (J1630) As Ordered ONE (20:02)
[2019-06-07 20:15] VITALS: BP 135/86
--- NOTE | 2019-06-07 20:29 | IPNPDOC ---
Text Note Date of Service The patient was seen on 06/07/19. NOTE TIME OF SERVICE 755PM PSYCH CERTIFICATION FACE TO FACE: yes PHYSICIAN ASSESSMENT: The patient was agitated, refused to allow staff to check her vitals, was not following verbal instructions and became agitated. She allowed me to examine her. VITALS FROM 1914: T 97.0/ HR 98 / R 18 / BP 132/68 / O2 99% GEN: irritable / yelling CVS: tachycardic LUNGS: CTAB on RA REASON FOR RESTRAINT: The patient was a danger to the staff. DE-ESCALATION INTERVENTIONS ATTEMPTED BEFORE USE OF RESTRAINTS: verbal redirection [MECHANICAL AND/OR CHEMICAL] RESTRAINTS USED: Both ordered by Psychiatrist director business integration LENGTH OF TIME ORDERED IN RESTRAINTS: 4 hours WHEN TO DISCONTINUE RESTRAINTS: When the patient is no longer a threat to to herself or others Post evaluation of restraint due in 24 hours. VS,Fishbone, I+O VS, Fishbone, I+O Laboratory Tests 06/06/19 20:50 Vital Signs Date Time Temp Pulse Resp B/P (MAP) Pulse Ox O2 Delivery O2 Flow Rate FiO2 06/07/19 19:15 97.0 98 18 132/68 (89) 99 Room Air TARAN FIGUEROA MD Jun 07, 2019 20:29
[2019-06-07 21:15] VITALS: BP 112/59
[2019-06-07 21:45] VITALS: BP 117/63
[2019-06-07 22:00] VITALS: BP 122/60
[2019-06-08] MEDS: hydrOXYzine 10 MG TAB PO SCH ×2 (06:00)
[2019-06-08] MEDS: LITHIUM CARBONATE 300 MG CAP PO SCH ×2 (09:38→20:54)
[2019-06-08] MEDS: lamoTRIgine 100MG TAB PO SCH (09:38)
[2019-06-08] MEDS: QUEtiapine FUMARATE 25 MG TAB PO SCH (09:38)
[2019-06-08] MEDS: OMEPRAZOLE 20 MG CAP PO SCH (09:38)
[2019-06-08] MEDS: OLANZapine ORAL DISINTEGRATING TAB 5MG PO PRN ×3 (09:39→20:54)
[2019-06-08] MEDS: ACETAMINOPHEN TAB 650MG DOSE (2X325MG) PO PRN ×2 (10:06→16:11)
[2019-06-08] MEDS: FLUTICASONE PROP 0.05% NASAL SPRAY 16 GM (FLONASE) NARES SCH (10:11)
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
[2019-06-08] MEDS ORDERED: hydrOXYzine 10 MG TAB PO SCH (12:00)
[2019-06-08] MEDS ORDERED: LORazepam 2 MG/ML VIAL (J2060) IM STA (12:01)
--- NOTE | 2019-06-08 12:04 | MHIR ---
General Date: Jun 08, 2019 Time Initiated: 12:03 Restraint Documentation Order/Evaluation FACE TO FACE: Yes PHYSICIAN ASSESSMENT:violent, aggressive REASON FOR RESTRAINT: Patient poses imminent danger of harming self or others: throwing objects, jumping on bed aggressive DE-ESCALATION INTERVENTIONS ATTEMPTED BEFORE USE OF RESTRAINTS: verbal, PO medications [MECHANICAL AND/OR CHEMICAL] RESTRAINTS USED: mechanical LENGTH OF TIME ORDERED IN RESTRAINTS: 240 minutes. WHEN TO DISCONTINUE RESTRAINTS: when able to be in behavioral control Post evaluation of restraint due in 24 hours. CORNELIO SHARMA DO Jun 08, 2019 12:04
[2019-06-08] MEDS ORDERED: diphenhydrAMINE INJ 50MG/ML VIAL (J1200) IM ONE (12:15)
[2019-06-08] MEDS ORDERED: HALOPERIDOL 5 MG/ML VIAL (J1630) IM ONE (12:15)
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
[2019-06-08 14:15] VITALS: BP 124/73
[2019-06-08 16:22] VITALS: BP 118/78
[2019-06-08] MEDS: hydrOXYzine 25 MG TAB PO SCH (17:48)
[2019-06-08] MEDS ORDERED: PALIPERIDONE 3 MG ER TAB (INVEGA) PO SCH (21:00)
[2019-06-09] MEDS: OLANZapine ORAL DISINTEGRATING TAB 5MG PO PRN ×3 (03:22→21:43)
[2019-06-09] MEDS: ACETAMINOPHEN TAB 650MG DOSE (2X325MG) PO PRN ×2 (03:54→11:42)
[2019-06-09] MEDS: hydrOXYzine 25 MG TAB PO SCH ×5 (05:11→23:49)
--- NOTE | 2019-06-09 05:23 | IPNPDOC ---
Text Note Date of Service The patient was seen on 06/09/19. NOTE TIME OF SERVICE 515PM PSYCH CERTIFICATION FACE TO FACE: yes PHYSICIAN ASSESSMENT: The patient was agitated, refusing to follow directions and was screaming at the staff. Once the Code 25 was called she became cooperative. She agreed to move to the room therefore restrains were not needed. VS,Fishbone, I+O VS, Fishbone, I+O Vital Signs Date Time Temp Pulse Resp B/P (MAP) Pulse Ox O2 Delivery O2 Flow Rate FiO2 06/08/19 16:22 98.0 66 16 118/78 (91) 06/08/19 14:15 98 Room Air TARAN FIGUEROA MD Jun 09, 2019 05:22
[2019-06-09 06:35] VITALS: BP 146/86
[2019-06-09] MEDS: FLUTICASONE PROP 0.05% NASAL SPRAY 16 GM (FLONASE) NARES SCH (08:27)
[2019-06-09] MEDS: OMEPRAZOLE 20 MG CAP PO SCH (08:27)
[2019-06-09] MEDS: LITHIUM CARBONATE 300 MG CAP PO SCH (08:27)
--- NOTE | 2019-06-09 11:03 | MHPR ---
General Date: Jun 09, 2019 Time: 11:00 Post-Restraint Evaluation THE OUTCOME OF THE RESTRAINT: positive EFFECTIVENESS OF THE RESTRAINT: Mechanical and/or chemical: effective ANY EVIDENCE THAT THE PATIENT WAS AFFECTED EMOTIONALLY: no ANY NEED FOR COUNSELING/ASSISTANCE: no CHANGES IN TREATMENT PLAN: 1:1 sitter, isolating patient from excessive stimulus RECOMMENDATIONS FOR FUTURE INCIDENTS: n/a CORNELIO SHARMA DO Jun 09, 2019 11:03
--- NOTE | 2019-06-09 11:03 | MHIPNPDOC ---
[facility] Progress Note Progress Note Inpatient Progress Note Soraya Jane MRN: N/A Date of : N/A Date of Service: 06/09/2019 History of Present Illness The patient, a well known woman with bipolar disorder who is 28 years old, presents to [facility] after becoming increasingly agitated, psychotic after ceasing her medications for several days. She had been discharged after an argument with her father, but appears at that time that she had likely stopped some of her medications and some had been altered in the interim. Her father reported that she got "ten times worse," becoming labile, unable to control herself, yelling, screaming, paranoid, usual statements, becoming agitated to the point that she needed to be restrained in the ER. She is still paranoid and psychotic that she is unable to be interviewed today, as she screams and yells, thrashes about, and is significantly impaired at this time. The patient is unable to participate in a full and comprehensive review of systems, however she has a well-known history of bipolar disorder and has appeared that she is to have returned to an episode of mixed ammy, of which several years ago she had suffered before she was placed on a long-acting injectable that had given her a measure of stability. Interval History The patient is met with today. She reports that she is feeling "better," however, still has been quite violent, irritated and upset, vacillating between liking others and screaming at them. She appears quite angered and irritated at times, unable to control her mood, she vacillates between wild paranoia and extreme anger. She had taken the Invega last night but after discussion reports she want to try a different medication. She appeared unable to engage in any meaningful discussion as she was quite tangential altering her thoughts multiple times during the interview. She is very tangential and pressured speech, difficult to engage with. She is on a 1-1 group restricted due to her violence where she needed to be in restraint yesterday, she has not had a restraint today. Review Of Systems Unable to obtain due to mental status Psychotherapy None on this visit. Vital Signs Reviewed. Mental Status Examination General: Poor hygiene Speech: Pressured Thought processes: Tangential MSK: Significant restlessness Thought content: Bizarre and paranoid Abstract reasoning, and computation: Impaired Description of associations: Impaired Description of abnormal or psychotic thoughts: Significant angry and aggressive thoughts Judgment: impaired Insight: impaired Orientation: Alert and orientated 3 Cognition: Grossly normal Recent and remote memory: Intact Attention span and concentration: Intact Fund of knowledge: Adequate Mood: "Fine." Affect: Labile, angry, and irritable Diagnoses Bipolar disorder type 1, most recent episode mixed. Borderline personality disorder. PTSD, chronic. Assessment and Plan Bipolar disorder type 1: Discontinue lithium as likely unhelpful at current dose with some renal impairment. Discontinue Invega. Will start cariprazine 1.5 mg daily Borderline personality disorder: Likely not at play with current symptoms. PTSD, chronic: As above. Disposition The patient will need a continued inpatient admission due to her severe psychosis and mixed manic episode. Time Spent 15 minutes. Friday Vital Signs Vital Signs Date Time Temp Pulse Resp B/P (MAP) Pulse Ox O2 Delivery O2 Flow Rate FiO2 06/09/19 06:35 98.7 113 16 146/86 (106) 06/08/19 14:15 98 Room Air Laboratory Data 24H Labs Laboratory Tests 2 06/09/19 09:28: Vitamin B12 Level 435 Current Medications Current Medications Medications (Trade) Dose Ordered Sig/Lynn Route PRN Reason Start Time Stop Time Status Last Admin Dose Admin Acetaminophen (Tylenol Tab) 650 mg Q6HP PRN PO PAIN / FEVER 06/08/19 09:45 06/09/19 03:54 Chlorpromazine HCl (Thorazine) 50 mg STAT STAT IM 06/07/19 05:31 06/07/19 05:32 DC 06/07/19 05:43 Diphenhydramine HCl (Benadryl) 50 mg STAT STAT IM 06/07/19 19:58 06/07/19 20:01 DC 06/07/19 20:08 Fluticasone Propionate (Flonase 0.05% Nasal [place]) 1 spray DAILY NARES 06/07/19 09:00 06/09/19 08:27 Haloperidol (Haldol) 10 mg STAT STAT IM 06/07/19 19:58 06/07/19 20:01 DC 06/07/19 20:08 Home Med (Med Rec Complete!) ASDIRECTED XX 06/07/19 12:15 06/07/19 12:06 DC Hydroxyzine HCl (Atarax) 10 mg Q6H PO 06/07/19 12:00 06/08/19 11:07 DC 06/07/19 15:35 Hydroxyzine HCl (Atarax) 25 mg Q6H PO 06/08/19 12:00 06/08/19 17:46 DC Hydroxyzine HCl (Atarax) 25 mg Q6H PO 06/08/19 18:00 06/09/19 05:11 Ibuprofen (Advil) 400 mg Q6HP PRN PO PAIN 06/07/19 12:45 06/08/19 09:37 DC 06/07/19 14:34 Lamotrigine (LaMICtal) 300 mg DAILY PO 06/07/19 09:00 06/08/19 11:07 DC 06/08/19 09:38 [place] Carbonate ([place] Carbonate) 300 mg BID PO 06/07/19 09:00 06/09/19 08:27 Lorazepam (Ativan) 2 mg STAT STAT IM 06/07/19 19:58 06/07/19 20:01 DC 06/07/19 20:08 Lorazepam (Ativan) 2 mg STAT STAT IM 06/08/19 12:01 06/08/19 12:03 DC 06/08/19 12:07 Magnesium Hydroxide (Milk Of Magnesia) 30 ml DAILYPRN PRN PO CONSTIPATION 06/07/19 12:45 Olanzapine (ZyPREXA ZYDIS) 5 mg Q4HP PRN PO AGITATION 06/07/19 12:45 06/09/19 03:22 Omeprazole (PriLOSEC) 20 mg DAILY PO 06/07/19 09:00 06/09/19 08:27 Paliperidone (Invega) 3 mg QHS PO 06/08/19 21:00 06/08/19 20:54 Quetiapine Fumarate (SEROquel) 25 mg BID PO 06/07/19 09:00 06/08/19 11:07 DC 06/08/19 09:38 Senna (Senokot) 1 tab QHS PRN PO CONSTIPATION 06/07/19 12:45 Allergies Coded Allergies: hydrocodone (Verified Allergy, Unknown, 05/01/19) lisdexamfetamine (Verified Adverse Reaction, Unknown, hallucinations, 05/01/19) trazodone (Verified Adverse Reaction, Unknown, "numbness", 05/01/19) CORNELIO SHARMA DO Jun 09, 2019 11:03
[2019-06-09] MEDS ORDERED: CARIPRAZINE 1.5MG CAPSULE (VRAYLAR) PO ONE (11:30)
[2019-06-09 16:18] VITALS: BP 136/74
[2019-06-09] MEDS: NICOTINE 14 MG/24 HR TRANSDERMAL TD PRN (17:52)
[2019-06-09] MEDS: IBUPROFEN 600 MG TAB PO PRN (19:49)
[2019-06-09] MEDS: SENNA 8.6 MG TAB (SENOKOT) PO PRN (19:49)
[2019-06-10] MEDS: IBUPROFEN 600 MG TAB PO PRN ×3 (00:11→14:46)
[2019-06-10 05:47] VITALS: BP 136/82
[2019-06-10] MEDS: hydrOXYzine 25 MG TAB PO SCH (05:50)
[2019-06-10] MEDS: OMEPRAZOLE 20 MG CAP PO SCH (08:04)
[2019-06-10] MEDS: FLUTICASONE PROP 0.05% NASAL SPRAY 16 GM (FLONASE) NARES SCH (08:04)
[2019-06-10] MEDS: NICOTINE 14 MG/24 HR TRANSDERMAL TD PRN ×2 (08:05→12:00)
[2019-06-10] MEDS: OLANZapine ORAL DISINTEGRATING TAB 5MG PO PRN (08:18)
[2019-06-10] MEDS ORDERED: CARIPRAZINE 1.5MG CAPSULE (VRAYLAR) PO SCH (09:00)
--- NOTE | 2019-06-10 10:13 | MHIPNPDOC ---
[facility] Progress Note Progress Note Inpatient Progress Note Soraya Jane MRN: N/A Date of : N/A Date of Service: 06/10/2019 History of Present Illness The patient, a well known woman with bipolar disorder who is 28 years old, presents to [facility] after becoming increasingly agitated, psychotic after ceasing her medications for several days. She had been discharged after an argument with her father, but appears at that time that she had likely stopped some of her medications and some had been altered in the interim. Her father reported that she got "ten times worse," becoming labile, unable to control herself, yelling, screaming, paranoid, usual statements, becoming agitated to the point that she needed to be restrained in the ER. She is still paranoid and psychotic that she is unable to be interviewed today, as she screams and yells, thrashes about, and is significantly impaired at this time. Interval History The patient is met with today, however, she is still highly tangential, difficult to redirect and has been irritable, although she has not lashed out. She has done well with the trial off the one-to-one and has attended groups. She does respond to redirection, although she has been calling [facility] multiple times stating that she is being discharged. Every time she is redirected, she becomes amenable only for short time, consistent with her mixed manic state. She reports that she feels like her moods vacillate quite quickly and that she is unable to rectify her paranoid thoughts about her father. The patient does report some mild sedation from her cariprazine, however, it appears from her significant restlessness, this must be more subjective than objective. Review Of Systems Denies any side effects from her medication such as chest pain, shortness of breath, cough, tremors, dizziness, muscle tightness or soreness. Denies any GI upset or bowel changes. Psychotherapy None on this visit. Vital Signs Reviewed. Mental Status Examination General: Fair hygiene Speech: Pressured Thought processes: Tangential MSK: Significant restlessness Thought content: Bizarre and paranoid Abstract reasoning, and computation: Impaired Description of associations: Impaired Description of abnormal or psychotic thoughts: Significant angry and aggressive thoughts Judgment: impaired Insight: impaired Orientation: Alert and orientated 3 Cognition: Grossly normal Recent and remote memory: Intact Attention span and concentration: Intact Fund of knowledge: Adequate Mood: "Fine." Affect: Labile, angry, and irritable Diagnoses Bipolar disorder type 1, most recent episode mixed. Borderline personality disorder. PTSD, chronic. Assessment and Plan Bipolar disorder type 1: We will increase cariprazine tomorrow night to 3 mg daily, changed to nighttime dosing due to reported sedation. Borderline personality disorder: Likely not at play with current symptoms. PTSD, chronic: As above. Disposition The patient will need a continued inpatient admission due to her severe p sychosis and mixed manic episode. Time Spent 15 minutes. Vital Signs Vital Signs Date Time Temp Pulse Resp B/P (MAP) Pulse Ox O2 Delivery O2 Flow Rate FiO2 06/10/19 08:36 Room Air 06/10/19 05:47 98.6 95 16 136/82 (100) 06/08/19 14:15 98 Laboratory Data 24H Labs Laboratory Tests 2 06/10/19 00:16: Bedside Glucose (Misc Panel) 104 Current Medications Current Medications Medications (Trade) Dose Ordered Sig/Lynn Route PRN Reason Start Time Stop Time Status Last Admin Dose Admin Acetaminophen (Tylenol Tab) 650 mg Q6HP PRN PO PAIN / FEVER 06/08/19 09:45 06/09/19 18:26 DC 06/09/19 11:42 Cariprazine (Vraylar) 1.5 mg DAILY PO 06/10/19 09:00 06/10/19 08:05 Chlorpromazine HCl (Thorazine) 50 mg STAT STAT IM 06/07/19 05:31 06/07/19 05:32 DC 06/07/19 05:43 Diphenhydramine HCl (Benadryl) 50 mg STAT STAT IM 06/07/19 19:58 06/07/19 20:01 DC 06/07/19 20:08 Fluticasone Propionate (Flonase 0.05% Nasal [place]) 1 spray DAILY NARES 06/07/19 09:00 06/10/19 08:04 Haloperidol (Haldol) 10 mg STAT STAT IM 06/07/19 19:58 06/07/19 20:01 DC 06/07/19 20:08 Home Med (Med Rec Complete!) ASDIRECTED XX 06/07/19 12:15 06/07/19 12:06 DC Hydroxyzine HCl (Atarax) 10 mg Q6H PO 06/07/19 12:00 06/08/19 11:07 DC 06/07/19 15:35 Hydroxyzine HCl (Atarax) 25 mg Q6H PO 06/08/19 12:00 06/08/19 17:46 DC Hydroxyzine HCl (Atarax) 25 mg Q6H PO 06/08/19 18:00 06/10/19 05:50 Ibuprofen (Advil) 400 mg Q6HP PRN PO PAIN 06/07/19 12:45 06/08/19 09:37 DC 06/07/19 14:34 Ibuprofen (Advil) 600 mg Q6HP PRN PO MODERATE PAIN (PS 5-7) 06/09/19 18:30 06/10/19 07:38 Lamotrigine (LaMICtal) 300 mg DAILY PO 06/07/19 09:00 06/08/19 11:07 DC 06/08/19 09:38 [place] Carbonate ([place] Carbonate) 300 mg BID PO 06/07/19 09:00 06/09/19 11:24 DC 06/09/19 08:27 Lorazepam (Ativan) 2 mg STAT STAT IM 06/07/19 19:58 06/07/19 20:01 DC 06/07/19 20:08 Lorazepam (Ativan) 2 mg STAT STAT IM 06/08/19 12:01 06/08/19 12:03 DC 06/08/19 12:07 Magnesium Hydroxide (Milk Of Magnesia) 30 ml DAILYPRN PRN PO CONSTIPATION 06/07/19 12:45 Nicotine (Nicoderm Cq 14mg) 1 patch DAILYPRN PRN TD NICOTINE WITHDRAWAL 06/09/19 17:00 06/10/19 08:05 Olanzapine (ZyPREXA ZYDIS) 5 mg Q4HP PRN PO AGITATION 06/07/19 12:45 06/10/19 08:18 Omeprazole (PriLOSEC) 20 mg DAILY PO 06/07/19 09:00 06/10/19 08:04 Paliperidone (Invega) 3 mg QHS PO 06/08/19 21:00 06/09/19 11:24 DC 06/08/19 20:54 Quetiapine Fumarate (SEROquel) 25 mg BID PO 06/07/19 09:00 06/08/19 11:07 DC 06/08/19 09:38 Senna (Senokot) 1 tab QHS PRN PO CONSTIPATION 06/07/19 12:45 06/09/19 19:49 Allergies Coded Allergies: hydrocodone (Verified Allergy, Unknown, 05/01/19) lisdexamfetamine (Verified Adverse Reaction, Unknown, hallucinations, 05/01/19) trazodone (Verified Adverse Reaction, Unknown, "numbness", 05/01/19) CORNELIO SHARMA DO Jun 10, 2019 10:13
[2019-06-10] MEDS: hydrOXYzine 25 MG TAB PO PRN ×3 (11:51→22:44)
[2019-06-10 15:40] VITALS: BP 141/85
[2019-06-11] MEDS: OLANZapine ORAL DISINTEGRATING TAB 5MG PO PRN ×2 (02:34→17:38)
[2019-06-11] MEDS: hydrOXYzine 25 MG TAB PO PRN ×4 (02:34→19:40)
[2019-06-11] MEDS: IBUPROFEN 600 MG TAB PO PRN ×3 (05:38→19:40)
[2019-06-11 06:29] VITALS: BP 137/79
--- NOTE | 2019-06-11 07:43 | MHIPNPDOC ---
[facility] Progress Note Progress Note Inpatient Progress Note Soraya Jane MRN: N/A Date of : N/A Date of Service: 06/11/2019 History of Present Illness The patient, a well known woman with bipolar disorder who is 28 years old, presents to [facility] after becoming increasingly agitated, psychotic after ceasing her medications for several days. She had been discharged after an argument with her father, but appears at that time that she had likely stopped some of her medications and some had been altered in the interim. Her father reported that she got "ten times worse," becoming labile, unable to control herself, yelling, screaming, paranoid, usual statements, becoming agitated to the point that she needed to be restrained in the ER. She is still paranoid and psychotic that she is unable to be interviewed today, as she screams and yells, thrashes about, and is significantly impaired at this time. Interval History The patient is met with today. She is somewhat less tangential, although she is still quite energized. She is running around the unit several times, increasingly more agitated, even threatening at times, although she has not needed any coding and is redirectable. She has difficulty with severely vacillating mood where she is unable to tolerate much stimulation without becoming fairly angry and irritable suddenly without warning. The patient has attended some groups, but is still quite difficult to redirect in a larger setting. She reports that the cariprazine is "fine," but is unable to be redirected well in order to figure out more abstract thing. She continues to state "when am I going," but does not appear to understand the explanation or remember from previous discussions about her condition. She has had no coding over the last night, has attended some groups. Nursing staff appear to notice continued altered thoughts. Review Of Systems Denies any side effects from her medication such as chest pain, shortness of breath, cough, tremors, dizziness, muscle tightness or soreness. Denies any GI upset or bowel changes. Psychotherapy None on this visit. Vital Signs Reviewed. Mental Status Examination General: Fair hygiene Speech: Pressured Thought processes: Tangential MSK: Significant restlessness Thought content: Bizarre and paranoid Abstract reasoning, and computation: Impaired Description of associations: Impaired Description of abnormal or psychotic thoughts: Significant angry and aggressive thoughts Judgment: impaired Insight: impaired Orientation: Alert and orientated 3 Cognition: Grossly normal Recent and remote memory: Intact Attention span and concentration: Intact Fund of knowledge: Adequate Mood: "Fine" Affect: Labile, angry, and irritable Diagnoses Bipolar disorder type 1, most recent episode mixed. Borderline personality disorder. PTSD, chronic. Assessment and Plan Bipolar disorder type 1: Continue cariprazine 3 mg nightly. Borderline personality disorder: Likely not at play with current symptoms. PTSD, chronic: As above. Disposition The patient will need a continued inpatient admission due to her severe psychosis and mixed manic episode. Time Spent 15 minutes. Friday Vital Signs Vital Signs Date Time Temp Pulse Resp B/P (MAP) Pulse Ox O2 Delivery O2 Flow Rate FiO2 06/11/19 06:29 97.5 100 20 137/79 (98) Room Air 06/08/19 14:15 98 Current Medications Current Medications Medications (Trade) Dose Ordered Sig/[place]ynn Route PRN Reason Start Time Stop Time Status Last Admin Dose Admin Acetaminophen (Tylenol Tab) 650 mg Q6HP PRN PO PAIN / FEVER 06/08/19 09:45 06/09/19 18:26 DC 06/09/19 11:42 Cariprazine (Vraylar) 1.5 mg DAILY PO 06/10/19 09:00 06/10/19 11:46 DC 06/10/19 08:05 Cariprazine (Vraylar) 3 mg QHS PO 06/11/19 21:00 Chlorpromazine HCl (Thorazine) 50 mg STAT STAT IM 06/07/19 05:31 06/07/19 05:32 DC 06/07/19 05:43 Diphenhydramine HCl (Benadryl) 50 mg STAT STAT IM 06/07/19 19:58 06/07/19 20:01 DC 06/07/19 20:08 Fluticasone Propionate (Flonase 0.05% Nasal [place]) 1 spray DAILY NARES 06/07/19 09:00 06/10/19 08:04 Haloperidol (Haldol) 10 mg STAT STAT IM 06/07/19 19:58 06/07/19 20:01 DC 06/07/19 20:08 Home Med (Med Rec Complete!) ASDIRECTED XX 06/07/19 12:15 06/07/19 12:06 DC Hydroxyzine HCl (Atarax) 10 mg Q6H PO 06/07/19 12:00 06/08/19 11:07 DC 06/07/19 15:35 Hydroxyzine HCl (Atarax) 25 mg Q2H PRN PO anxiety 06/10/19 11:45 06/11/19 02:34 Hydroxyzine HCl (Atarax) 25 mg Q6H PO 06/08/19 12:00 06/08/19 17:46 DC Hydroxyzine HCl (Atarax) 25 mg Q6H PO 06/08/19 18:00 06/10/19 11:46 DC 06/10/19 05:50 Ibuprofen (Advil) 400 mg Q6HP PRN PO PAIN 06/07/19 12:45 06/08/19 09:37 DC 06/07/19 14:34 Ibuprofen (Advil) 600 mg Q6HP PRN PO MODERATE PAIN (PS 5-7) 06/09/19 18:30 06/11/19 05:38 Lamotrigine (LaMICtal) 300 mg DAILY PO 06/07/19 09:00 06/08/19 11:07 DC 06/08/19 09:38 [place] Carbonate ([place] Carbonate) 300 mg BID PO 06/07/19 09:00 06/09/19 11:24 DC 06/09/19 08:27 Lorazepam (Ativan) 2 mg STAT STAT IM 06/07/19 19:58 06/07/19 20:01 DC 06/07/19 20:08 Lorazepam (Ativan) 2 mg STAT STAT IM 06/08/19 12:01 06/08/19 12:03 DC 06/08/19 12:07 Magnesium Hydroxide (Milk Of Magnesia) 30 ml DAILYPRN PRN PO CONSTIPATION 06/07/19 12:45 Nicotine (Nicoderm Cq 14mg) 1 patch DAILYPRN PRN TD NICOTINE WITHDRAWAL 06/09/19 17:00 06/10/19 11:46 DC 06/10/19 08:05 Nicotine (Nicoderm Cq 14mg) 2 patch DAILYPRN PRN TD NICOTINE WITHDRAWAL 06/10/19 11:45 06/10/19 12:00 Olanzapine (ZyPREXA ZYDIS) 5 mg Q4HP PRN PO AGITATION 06/07/19 12:45 06/11/19 02:34 Omeprazole (PriLOSEC) 20 mg DAILY PO 06/07/19 09:00 06/10/19 08:04 Paliperidone (Invega) 3 mg QHS PO 06/08/19 21:00 06/09/19 11:24 DC 06/08/19 20:54 Quetiapine Fumarate (SEROquel) 25 mg BID PO 06/07/19 09:00 06/08/19 11:07 DC 06/08/19 09:38 Senna (Senokot) 1 tab QHS PRN PO CONSTIPATION 06/07/19 12:45 06/09/19 19:49 Allergies Coded Allergies: hydrocodone (Verified Allergy, Unknown, 05/01/19) lisdexamfetamine (Verified Adverse Reaction, Unknown, hallucinations, 05/01/19) trazodone (Verified Adverse Reaction, Unknown, "numbness", 05/01/19) CORNELIO SHARMA DO Jun 11, 2019 07:43
[2019-06-11 07:49] VITALS: BP 137/79
[2019-06-11] MEDS: NICOTINE 14 MG/24 HR TRANSDERMAL TD PRN (08:07)
[2019-06-11] MEDS: FLUTICASONE PROP 0.05% NASAL SPRAY 16 GM (FLONASE) NARES SCH (08:07)
[2019-06-11] MEDS: OMEPRAZOLE 20 MG CAP PO SCH (08:08)
[2019-06-11 15:45] VITALS: BP 136/84
[2019-06-11] MEDS ORDERED: chlorproMAZINE 25 MG TAB (Q0161) PO ONE (20:00)
[2019-06-11] MEDS ORDERED: LORazepam 2 MG TAB PO ONE (20:00)
[2019-06-11] MEDS: CARIPRAZINE 1.5MG CAPSULE (VRAYLAR) PO SCH (20:00)
[2019-06-12 06:26] VITALS: BP 128/78
[2019-06-12] MEDS: FLUTICASONE PROP 0.05% NASAL SPRAY 16 GM (FLONASE) NARES SCH (08:40)
[2019-06-12] MEDS: OMEPRAZOLE 20 MG CAP PO SCH (08:40)
[2019-06-12] MEDS: NICOTINE 14 MG/24 HR TRANSDERMAL TD PRN (09:04)
[2019-06-12] MEDS ORDERED: LORazepam 2 MG TAB PO ONE (10:45)
[2019-06-12] MEDS ORDERED: chlorproMAZINE 25 MG TAB (Q0161) PO ONE (11:00)
[2019-06-12] MEDS: MOM 30ML SUSPENSION UDC PO PRN (12:05)
[2019-06-12] MEDS: hydrOXYzine 25 MG TAB PO PRN (12:40)
[2019-06-12] MEDS: IBUPROFEN 600 MG TAB PO PRN ×2 (12:41→23:00)
[2019-06-12] MEDS ORDERED: SUMAtriptan SUCCINATE 25 MG TAB PO ONE (15:00)
[2019-06-12] MEDS: SENNA 8.6 MG TAB (SENOKOT) PO PRN (20:34)
[2019-06-12] MEDS: CARIPRAZINE 1.5MG CAPSULE (VRAYLAR) PO SCH (21:46)
[2019-06-13] MEDS: chlorproMAZINE 25 MG TAB (Q0161) PO PRN ×2 (01:11→22:20)
[2019-06-13] MEDS: LORazepam 2 MG TAB PO PRN ×3 (01:12→21:34)
[2019-06-13] MEDS: IBUPROFEN 600 MG TAB PO PRN ×3 (05:42→21:34)
[2019-06-13 06:33] VITALS: BP 122/77
[2019-06-13] MEDS: MOM 30ML SUSPENSION UDC PO PRN (07:20)
[2019-06-13] MEDS: hydrOXYzine 25 MG TAB PO PRN (07:20)
[2019-06-13] MEDS: OMEPRAZOLE 20 MG CAP PO SCH (08:02)
[2019-06-13] MEDS: FLUTICASONE PROP 0.05% NASAL SPRAY 16 GM (FLONASE) NARES SCH (08:02)
[2019-06-13] MEDS: NICOTINE 14 MG/24 HR TRANSDERMAL TD PRN (10:26)
[2019-06-13 14:07] LABS: Methylmalonic Acid 205 nmol/L (0-378)
[2019-06-13 16:14] VITALS: BP 130/73
[2019-06-13] MEDS: SENNA 8.6 MG TAB (SENOKOT) PO PRN (19:59)
[2019-06-13] MEDS: CARIPRAZINE 1.5MG CAPSULE (VRAYLAR) PO SCH (19:59)
[2019-06-14 06:30] VITALS: BP 127/73
--- NOTE | 2019-06-14 06:52 | MHIPNPDOC ---
[facility] Progress Note Progress Note Inpatient Progress Note Soraya Jane MRN: N/A Date of : N/A Date of Service: 06/14/2019 History of Present Illness The patient, a well known woman with bipolar disorder who is 28 years old, presents to [facility] after becoming increasingly agitated, psychotic after ceasing her medications for several days. She had been discharged after an argument with her father, but appears at that time that she had likely stopped some of her medications and some had been altered in the interim. Her father reported that she got "ten times worse," becoming labile, unable to control herself, yelling, screaming, paranoid, usual statements, becoming agitated to the point that she needed to be restrained in the ER. She is still paranoid and psychotic that she is unable to be interviewed today, as she screams and yells, thrashes about, and is significantly impaired at this time. Interval History The patient was attempted to be met with today. However, she has become increasingly more agitated, labile and unable to control her agitation. She has become quite bizarre, writing on the john, making various threats against myself. She says if she is not discharged, she would "hang this provider with his underwear." She has attempted to be met with, however, she is difficult to redirect, very irritated and multiple times the conversation needs to be ended as she began to become more physically close to this provider and irritated, posturing in a threatening manner. She has attended some group, but remains still highly agitated and bizarre. The patient, in one of the multiple discussions, had become upset, but wished to continue on the Compazine, but wished to be replaced on Lamictal/lamotrigine and Seroquel. changed mind multiple times throughout the day. Review Of Systems Unable to obtain due to mental status. Psychotherapy None on this visit. Vital Signs Reviewed. Mental Status Examination General: Fair hygiene Speech: Pressured Thought processes: Tangential MSK: Significant restlessness Thought content: Bizarre and paranoid Abstract reasoning, and computation: Impaired Description of associations: Impaired Description of abnormal or psychotic thoughts: Significant angry and aggressive thoughts Judgment: impaired Insight: impaired Orientation: Alert and orientated 3 Cognition: Grossly normal Recent and remote memory: Intact Attention span and concentration: Intact Fund of knowledge: Adequate Mood: "Fine" Affect: Labile, angry, and irritable Diagnoses Bipolar disorder type 1, most recent episode mixed. Borderline personality disorder. PTSD, chronic. Assessment and Plan Bipolar disorder type 1: Increase cariprazine to 4.5 mg nightly, restart lithium 300 mg BID, Seroquel 50 mg nightly with 25 mg TID PRN as well as 25 mg of Lamictal daily for further titration. Borderline personality disorder: Likely not at play with current symptoms. PTSD, chronic: As above. Disposition The patient will need a continued inpatient admission due to her severe psychosis and mixed manic episode. Time Spent 20 minutes. Friday Vital Signs Vital Signs Date Time Temp Pulse Resp B/P (MAP) Pulse Ox O2 Delivery O2 Flow Rate FiO2 06/14/19 06:30 98.5 90 14 127/73 (91) Room Air 06/08/19 14:15 98 Current Medications Current Medications Medications (Trade) Dose Ordered Sig/Lynn Route PRN Reason Start Time Stop Time Status Last Admin Dose Admin Acetaminophen (Tylenol Tab) 650 mg Q6HP PRN PO PAIN / FEVER 06/08/19 09:45 06/09/19 18:26 DC 06/09/19 11:42 Cariprazine (Vraylar) 1.5 mg DAILY PO 06/10/19 09:00 06/10/19 11:46 DC 06/10/19 08:05 Cariprazine (Vraylar) 3 mg QHS PO 06/11/19 21:00 06/13/19 19:59 Chlorpromazine HCl (Thorazine) 50 mg Q4HP PRN PO ANXIETY/AGITATION 06/12/19 15:00 06/13/19 22:20 Chlorpromazine HCl (Thorazine) 50 mg STAT STAT IM 06/07/19 05:31 06/07/19 05:32 DC 06/07/19 05:43 Diphenhydramine HCl (Benadryl) 50 mg STAT STAT IM 06/07/19 19:58 06/07/19 20:01 DC 06/07/19 20:08 Fluticasone Propionate (Flonase 0.05% Nasal [place]) 1 spray DAILY NARES 06/07/19 09:00 06/13/19 08:02 Haloperidol (Haldol) 10 mg STAT STAT IM 06/07/19 19:58 06/07/19 20:01 DC 06/07/19 20:08 Home Med (Med Rec Complete!) ASDIRECTED XX 06/07/19 12:15 06/07/19 12:06 DC Hydroxyzine HCl (Atarax) 10 mg Q6H PO 06/07/19 12:00 06/08/19 11:07 DC 06/07/19 15:35 Hydroxyzine HCl (Atarax) 25 mg Q2H PRN PO anxiety 06/10/19 11:45 06/13/19 07:20 Hydroxyzine HCl (Atarax) 25 mg Q6H PO 06/08/19 12:00 06/08/19 17:46 DC Hydroxyzine HCl (Atarax) 25 mg Q6H PO 06/08/19 18:00 06/10/19 11:46 DC 06/10/19 05:50 Ibuprofen (Advil) 400 mg Q6HP PRN PO PAIN 06/07/19 12:45 06/08/19 09:37 DC 06/07/19 14:34 Ibuprofen (Advil) 600 mg Q6HP PRN PO MODERATE PAIN (PS 5-7) 06/09/19 18:30 06/13/19 21:34 Lamotrigine (LaMICtal) 300 mg DAILY PO 06/07/19 09:00 06/08/19 11:07 DC 06/08/19 09:38 [place] Carbonate (L[place]man Carbonate) 300 mg BID PO 06/07/19 09:00 06/09/19 11:24 DC 06/09/19 08:27 Lorazepam (Ativan) 2 mg Q4HP PRN PO ANXIETY/AGITATION 06/12/19 15:00 06/13/19 21:34 Lorazepam (Ativan) 2 mg STAT STAT IM 06/07/19 19:58 06/07/19 20:01 DC 06/07/19 20:08 Lorazepam (Ativan) 2 mg STAT STAT IM 06/08/19 12:01 06/08/19 12:03 DC 06/08/19 12:07 Magnesium Hydroxide (Milk Of Magnesia) 30 ml DAILYPRN PRN PO CONSTIPATION 06/07/19 12:45 06/13/19 07:20 Nicotine (Nicoderm Cq 14mg) 1 patch DAILYPRN PRN TD NICOTINE WITHDRAWAL 06/09/19 17:00 06/10/19 11:46 DC 06/10/19 08:05 Nicotine (Nicoderm Cq 14mg) 2 patch DAILYPRN PRN TD NICOTINE WITHDRAWAL 06/10/19 11:45 06/13/19 10:26 Olanzapine (ZyPREXA ZYDIS) 5 mg Q4HP PRN PO AGITATION 06/07/19 12:45 06/11/19 17:38 Omeprazole (PriLOSEC) 20 mg DAILY PO 06/07/19 09:00 06/13/19 08:02 Paliperidone (Invega) 3 mg QHS PO 06/08/19 21:00 06/09/19 11:24 DC 06/08/19 20:54 Quetiapine Fumarate (SEROquel) 25 mg BID PO 06/07/19 09:00 06/08/19 11:07 DC 06/08/19 09:38 Senna (Senokot) 1 tab QHS PRN PO CONSTIPATION 06/07/19 12:45 06/13/19 19:59 Allergies Coded Allergies: hydrocodone (Verified Allergy, Unknown, 05/01/19) lisdexamfetamine (Verified Adverse Reaction, Unknown, hallucinations, 05/01/19) trazodone (Verified Adverse Reaction, Unknown, "numbness", 05/01/19) CORNELIO SHARMA DO Jun 14, 2019 06:52
[2019-06-14] MEDS: OMEPRAZOLE 20 MG CAP PO SCH (08:12)
[2019-06-14] MEDS: FLUTICASONE PROP 0.05% NASAL SPRAY 16 GM (FLONASE) NARES SCH (08:12)
[2019-06-14] MEDS: NICOTINE 14 MG/24 HR TRANSDERMAL TD PRN (08:14)
[2019-06-14] MEDS: IBUPROFEN 600 MG TAB PO PRN ×2 (09:27→17:20)
[2019-06-14] MEDS: hydrOXYzine 25 MG TAB PO PRN ×2 (09:27→14:31)
[2019-06-14] MEDS: LITHIUM CARBONATE 300 MG CAP PO SCH ×2 (10:29→20:32)
[2019-06-14 16:50] VITALS: BP 125/83
[2019-06-14] MEDS: MOM 30ML SUSPENSION UDC PO PRN (17:18)
[2019-06-14] MEDS: CARIPRAZINE 1.5MG CAPSULE (VRAYLAR) PO SCH (20:31)
[2019-06-14] MEDS: QUEtiapine FUMARATE 50 MG TAB PO SCH (20:32)
[2019-06-14] MEDS ORDERED: lamoTRIgine 25 MG TAB PO SCH (21:00)
[2019-06-14] MEDS ORDERED: PALIPERIDONE 3 MG ER TAB (INVEGA) PO SCH (21:00)
[2019-06-14] MEDS: SENNA 8.6 MG TAB (SENOKOT) PO PRN (21:33)
[2019-06-14] MEDS: LORazepam 2 MG TAB PO PRN (22:53)
[2019-06-14] MEDS: chlorproMAZINE 25 MG TAB (Q0161) PO PRN (22:53)
[2019-06-15 06:52] VITALS: BP 120/88
[2019-06-15] MEDS: SENNA 8.6 MG TAB (SENOKOT) PO PRN (08:46)
[2019-06-15] MEDS: FLUTICASONE PROP 0.05% NASAL SPRAY 16 GM (FLONASE) NARES SCH (08:46)
[2019-06-15] MEDS: OMEPRAZOLE 20 MG CAP PO SCH (08:47)
[2019-06-15] MEDS: IBUPROFEN 600 MG TAB PO PRN ×2 (08:47→15:53)
[2019-06-15] MEDS: LITHIUM CARBONATE 300 MG CAP PO SCH ×2 (08:47→20:36)
[2019-06-15] MEDS: NICOTINE 14 MG/24 HR TRANSDERMAL TD PRN (08:48)
--- NOTE | 2019-06-15 09:48 | MHIPNPDOC ---
[facility] Progress Note Progress Note Inpatient Progress Note Soraya Jane MRN: N/A Date of : N/A Date of Service: 06/15/2019 History of Present Illness The patient, a well known woman with bipolar disorder who is 28 years old, presents to [facility] after becoming increasingly agitated, psychotic after ceasing her medications for several days. She had been discharged after an argument with her father, but appears at that time that she had likely stopped some of her medications and some had been altered in the interim. Her father reported that she got "ten times worse," becoming labile, unable to control herself, yelling, screaming, paranoid, usual statements, becoming agitated to the point that she needed to be restrained in the ER. She is still paranoid and psychotic that she is unable to be interviewed today, as she screams and yells, thrashes about, and is significantly impaired at this time. Interval History The patient is attempted to be met with today, however she is still quite distorted with multiple tangential thoughts during the interview. She jumps around to various topics, but is able to relate that she likes the medications and wishes to have more lithium. She had previously asked her court hearing to be discharged as she was paranoid about going to [facility], however, when this was discussed she had redacted it. She appears unable to soothe herself, vacillating rapidly throughout the day. During group therapy, she was still very unable to focus having to move around the whole room being completely disorganized. Nursing staff noticed that she can become irritable within moments, paranoid and disorganized quite quickly Review Of Systems Unable to obtain due to mental status. Psychotherapy None on this visit. Vital Signs Reviewed. Mental Status Examination General: Fair hygiene Speech: Pressured Thought processes: Tangential MSK: Significant restlessness Thought content: Bizarre and paranoid Abstract reasoning, and computation: Impaired Description of associations: Impaired Description of abnormal or psychotic thoughts: Significant angry and aggressive thoughts Judgment: impaired Insight: impaired Orientation: Alert and orientated 3 Cognition: Grossly normal Recent and remote memory: Intact Attention span and concentration: Intact Fund of knowledge: Adequate Mood: "Fine" Affect: Labile, angry, and irritable Diagnoses Bipolar disorder type 1, most recent episode mixed. Borderline personality disorder. PTSD, chronic. Assessment and Plan Bipolar disorder type 1: Continue cariprazine 4.5 mg nightly, increase lithium to 600 mg daily/two times a day. Continue Seroquel 50 mg/25 mg, increase Lamictal to 50 mg daily, lithium level tomorrow morning trough level. Borderline personality disorder: Likely not at play with current symptoms. PTSD, chronic: As above. Disposition The patient will need a continued inpatient admission due to her severe psychosis and mixed manic episode. Time Spent 20 minutes. Friday Vital Signs Vital Signs Date Time Temp Pulse Resp B/P (MAP) Pulse Ox O2 Delivery O2 Flow Rate FiO2 06/14/19 16:50 98.1 111 19 125/83 (97) 06/14/19 06:30 Room Air Current Medications Current Medications Medications (Trade) Dose Ordered Sig/Lynn Route PRN Reason Start Time Stop Time Status Last Admin Dose Admin Acetaminophen (Tylenol Tab) 650 mg Q6HP PRN PO PAIN / FEVER 06/08/19 09:45 06/09/19 18:26 DC 06/09/19 11:42 Cariprazine (Vraylar) 1.5 mg DAILY PO 06/10/19 09:00 06/10/19 11:46 DC 06/10/19 08:05 Cariprazine (Vraylar) 3 mg QHS PO 06/11/19 21:00 06/14/19 07:56 DC 06/13/19 19:59 Cariprazine (Vraylar) 4.5 mg QHS PO 06/14/19 21:00 06/14/19 20:31 Chlorpromazine HCl (Thorazine) 50 mg Q4HP PRN PO ANXIETY/AGITATION 06/12/19 15:00 06/14/19 22:53 Chlorpromazine HCl (Thorazine) 50 mg STAT STAT IM 06/07/19 05:31 06/07/19 05:32 DC 06/07/19 05:43 Diphenhydramine HCl (Benadryl) 50 mg STAT STAT IM 06/07/19 19:58 06/07/19 20:01 DC 06/07/19 20:08 Fluticasone Propionate (Flonase 0.05% Nasal [place]) 1 spray DAILY NARES 06/07/19 09:00 06/15/19 08:46 Haloperidol (Haldol) 10 mg STAT STAT IM 06/07/19 19:58 06/07/19 20:01 DC 06/07/19 20:08 Home Med (Med Rec Complete!) ASDIRECTED XX 06/07/19 12:15 06/07/19 12:06 DC Hydroxyzine HCl (Atarax) 10 mg Q6H PO 06/07/19 12:00 06/08/19 11:07 DC 06/07/19 15:35 Hydroxyzine HCl (Atarax) 25 mg Q2H PRN PO anxiety 06/10/19 11:45 06/14/19 14:31 Hydroxyzine HCl (Atarax) 25 mg Q6H PO 06/08/19 12:00 06/08/19 17:46 DC Hydroxyzine HCl (Atarax) 25 mg Q6H PO 06/08/19 18:00 06/10/19 11:46 DC 06/10/19 05:50 Ibuprofen (Advil) 400 mg Q6HP PRN PO PAIN 06/07/19 12:45 06/08/19 09:37 DC 06/07/19 14:34 Ibuprofen (Advil) 600 mg Q6HP PRN PO MODERATE PAIN (PS 5-7) 06/09/19 18:30 06/15/19 08:47 Lamotrigine (LaMICtal) 25 mg QHS PO 06/14/19 21:00 06/14/19 20:31 Lamotrigine (LaMICtal) 300 mg DAILY PO 06/07/19 09:00 06/08/19 11:07 DC 06/08/19 09:38 [place] Carbonate ([place] Carbonate) 300 mg BID PO 06/14/19 09:00 06/15/19 08:47 [place] Carbonate ([place] Carbonate) 300 mg BID PO 06/07/19 09:00 06/09/19 11:24 DC 06/09/19 08:27 Lorazepam (Ativan) 2 mg Q4HP PRN PO ANXIETY/AGITATION 06/12/19 15:00 06/14/19 22:53 Lorazepam (Ativan) 2 mg STAT STAT IM 06/07/19 19:58 06/07/19 20:01 DC 06/07/19 20:08 Lorazepam (Ativan) 2 mg STAT STAT IM 06/08/19 12:01 06/08/19 12:03 DC 06/08/19 12:07 Magnesium Hydroxide (Milk Of Magnesia) 30 ml DAILYPRN PRN PO CONSTIPATION 06/07/19 12:45 06/14/19 17:18 Nicotine (Nicoderm Cq 14mg) 1 patch DAILYPRN PRN TD NICOTINE WITHDRAWAL 06/09/19 17:00 06/10/19 11:46 DC 06/10/19 08:05 Nicotine (Nicoderm Cq 14mg) 2 patch DAILYPRN PRN TD NICOTINE WITHDRAWAL 06/10/19 11:45 06/15/19 08:48 Olanzapine (ZyPREXA ZYDIS) 5 mg Q4HP PRN PO AGITATION 06/07/19 12:45 06/11/19 17:38 Omeprazole (PriLOSEC) 20 mg DAILY PO 06/07/19 09:00 06/15/19 08:47 Paliperidone (Invega) 3 mg QHS PO 06/14/19 21:00 06/14/19 10:05 DC Paliperidone (Invega) 3 mg QHS PO 06/08/19 21:00 06/09/19 11:24 DC 06/08/19 20:54 Quetiapine Fumarate (SEROquel) 25 mg BID PO 06/07/19 09:00 06/08/19 11:07 DC 06/08/19 09:38 Quetiapine Fumarate (SEROquel) 25 mg TIDP PRN PO anxiety 06/14/19 10:15 Quetiapine Fumarate (SEROquel) 50 mg QHS PO 06/14/19 21:00 06/14/19 20:32 Senna (Senokot) 1 tab QHS PRN PO CONSTIPATION 06/07/19 12:45 06/15/19 08:46 Allergies Coded Allergies: hydrocodone (Verified Allergy, Unknown, 05/01/19) lisdexamfetamine (Verified Adverse Reaction, Unknown, hallucinations, 05/01/19) trazodone (Verified Adverse Reaction, Unknown, "numbness", 05/01/19) CORNELIO SHARMA DO Jun 15, 2019 09:48
[2019-06-15] MEDS: hydrOXYzine 25 MG TAB PO PRN ×2 (09:57→19:00)
[2019-06-15] MEDS: LORazepam 2 MG TAB PO PRN (11:13)
[2019-06-15 15:42] VITALS: BP 145/80
[2019-06-15] MEDS: CARIPRAZINE 1.5MG CAPSULE (VRAYLAR) PO SCH (20:35)
[2019-06-15] MEDS: QUEtiapine FUMARATE 50 MG TAB PO SCH (20:36)
[2019-06-15] MEDS: lamoTRIgine 25 MG TAB PO SCH (20:36)
[2019-06-16 06:50] VITALS: BP 116/62
[2019-06-16] MEDS: FLUTICASONE PROP 0.05% NASAL SPRAY 16 GM (FLONASE) NARES SCH (07:49)
[2019-06-16] MEDS: hydrOXYzine 25 MG TAB PO PRN ×3 (07:49→20:16)
[2019-06-16] MEDS: OMEPRAZOLE 20 MG CAP PO SCH (07:49)
[2019-06-16] MEDS: LITHIUM CARBONATE 300 MG CAP PO SCH ×3 (07:50→20:16)
--- NOTE | 2019-06-16 08:06 | MHIPNPDOC ---
[facility] Progress Note Progress Note Inpatient Progress Note Soraya Jane MRN: N/A Date of : N/A Date of Service: 06/16/2019 History of Present Illness The patient, a well known woman with bipolar disorder who is 28 years old, presents to [facility] after becoming increasingly agitated, psychotic after ceasing her medications for several days. She had been discharged after an argument with her father, but appears at that time that she had likely stopped some of her medications and some had been altered in the interim. Her father reported that she got "ten times worse," becoming labile, unable to control herself, yelling, screaming, paranoid, usual statements, becoming agitated to the point that she needed to be restrained in the ER. She is still paranoid and psychotic that she is unable to be interviewed today, as she screams and yells, thrashes about, and is significantly impaired at this time. Interval History The patient is attempted to be met with today. She was fairly angry and irritable, paranoid and bizarre this morning, yelling at various staff members. When I met with her, she was unable to concentrate for a significant amount of time, bouncing around various ideas, continually asking about discharge. She continues to state she "loves" the lithium, but then subsequently will yell and scream about it later on, bizarrely paranoid, telling that people are out to get her. She has not had any overt acts of violence, but has become increasingly hard to control. She has moved various objects around in her room, throwing them in the middle of the night. She has attended groups at times, but can tolerate only very little. Review Of Systems Unable to obtain due to mental status. Psychotherapy None on this visit. Vital Signs Reviewed. Mental Status Examination General: Fair hygiene Speech: Pressured Thought processes: Tangential MSK: Significant restlessness Thought content: Bizarre and paranoid Abstract reasoning, and computation: Impaired Description of associations: Impaired Description of abnormal or psychotic thoughts: Significant angry and aggressive thoughts Judgment: impaired Insight: impaired Orientation: Alert and orientated 3 Cognition: Grossly normal Recent and remote memory: Intact Attention span and concentration: Intact Fund of knowledge: Adequate Mood: "Fine" Affect: Labile, angry, and irritable Diagnoses Bipolar disorder type 1, most recent episode mixed. Borderline personality disorder. PTSD, chronic. Assessment and Plan Bipolar disorder type 1: Continue cariprazine 4.5 mg nightly. Continue lithium 600 mg BID, Seroquel QHS/25 PRN. Continue Lamictal 50 mg daily pending lead level due to unusual blood workup. Borderline personality disorder: Likely not at play with current symptoms. PTSD, chronic: As above. Disposition The patient will need a continued inpatient admission due to her severe psy chosis and mixed manic episode. Time Spent 20 minutes. Friday Vital Signs Vital Signs Date Time Temp Pulse Resp B/P (MAP) Pulse Ox O2 Delivery O2 Flow Rate FiO2 06/16/19 06:50 98.0 100 16 116/62 (80) 06/14/19 06:30 Room Air Laboratory Data 24H Labs Laboratory Tests 2 06/15/19 14:31: Current Medications Current Medications Medications (Trade) Dose Ordered Sig/Lynn Route PRN Reason Start Time Stop Time Status Last Admin Dose Admin Acetaminophen (Tylenol Tab) 650 mg Q6HP PRN PO PAIN / FEVER 06/08/19 09:45 06/09/19 18:26 DC 06/09/19 11:42 Cariprazine (Vraylar) 1.5 mg DAILY PO 06/10/19 09:00 06/10/19 11:46 DC 06/10/19 08:05 Cariprazine (Vraylar) 3 mg QHS PO 06/11/19 21:00 06/14/19 07:56 DC 06/13/19 19:59 Cariprazine (Vraylar) 4.5 mg QHS PO 06/14/19 21:00 06/15/19 20:35 Chlorpromazine HCl (Thorazine) 50 mg Q4HP PRN PO ANXIETY/AGITATION 06/12/19 15:00 06/15/19 14:01 DC 06/14/19 22:53 Chlorpromazine HCl (Thorazine) 50 mg STAT STAT IM 06/07/19 05:31 06/07/19 05:32 DC 06/07/19 05:43 Diphenhydramine HCl (Benadryl) 50 mg STAT STAT IM 06/07/19 19:58 06/07/19 20:01 DC 06/07/19 20:08 Fluticasone Propionate (Flonase 0.05% Nasal [place]) 1 spray DAILY NARES 1/6/20 09:00 06/16/19 07:49 Haloperidol (Haldol) 10 mg STAT STAT IM 06/07/19 19:58 06/07/19 20:01 DC 06/07/19 20:08 Home Med (Med Rec Complete!) ASDIRECTED XX 06/07/19 12:15 06/07/19 12:06 DC Hydroxyzine HCl (Atarax) 10 mg Q6H PO 06/07/19 12:00 06/08/19 11:07 DC 06/07/19 15:35 Hydroxyzine HCl (Atarax) 25 mg Q2H PRN PO anxiety 06/10/19 11:45 06/16/19 07:49 Hydroxyzine HCl (Atarax) 25 mg Q6H PO 06/08/19 12:00 06/08/19 17:46 DC Hydroxyzine HCl (Atarax) 25 mg Q6H PO 06/08/19 18:00 06/10/19 11:46 DC 06/10/19 05:50 Ibuprofen (Advil) 400 mg Q6HP PRN PO PAIN 06/07/19 12:45 06/08/19 09:37 DC 06/07/19 14:34 Ibuprofen (Advil) 600 mg Q6HP PRN PO MODERATE PAIN (PS 5-7) 06/09/19 18:30 06/15/19 15:53 Lamotrigine (LaMICtal) 25 mg QHS PO 06/14/19 21:00 06/15/19 14:01 DC 06/14/19 20:31 Lamotrigine (LaMICtal) 50 mg QHS PO 06/15/19 21:00 06/15/19 20:36 Lamotrigine (LaMICtal) 300 mg DAILY PO 06/07/19 09:00 06/08/19 11:07 DC 06/08/19 09:38 [place] Carbonate ([place] Carbonate) 300 mg BID PO 06/14/19 09:00 06/15/19 14:01 DC 06/15/19 08:47 [place] Carbonate ([place] Carbonate) 300 mg BID PO 06/07/19 09:00 06/09/19 11:24 DC 06/09/19 08:27 [place] Carbonate ([place] Carbonate) 600 mg BID PO 06/15/19 21:00 06/15/19 20:36 Lorazepam (Ativan) 2 mg Q4HP PRN PO ANXIETY/AGITATION 06/12/19 15:00 06/15/19 14:01 DC 06/15/19 11:13 Lorazepam (Ativan) 2 mg STAT STAT IM 06/07/19 19:58 06/07/19 20:01 DC 06/07/19 20:08 Lorazepam (Ativan) 2 mg STAT STAT IM 06/08/19 12:01 06/08/19 12:03 DC 06/08/19 12:07 Magnesium Hydroxide (Milk Of Magnesia) 30 ml DAILYPRN PRN PO CONSTIPATION 06/07/19 12:45 06/14/19 17:18 Nicotine (Nicoderm Cq 14mg) 1 patch DAILYPRN PRN TD NICOTINE WITHDRAWAL 06/09/19 17:00 06/10/19 11:46 DC 06/10/19 08:05 Nicotine (Nicoderm Cq 14mg) 2 patch DAILYPRN PRN TD NICOTINE WITHDRAWAL 06/10/19 11:45 06/15/19 08:48 Olanzapine (ZyPREXA ZYDIS) 5 mg Q4HP PRN PO AGITATION 06/07/19 12:45 06/11/19 17:38 Omeprazole (PriLOSEC) 20 mg DAILY PO 06/07/19 09:00 06/16/19 07:49 Paliperidone (Invega) 3 mg QHS PO 06/14/19 21:00 06/14/19 10:05 DC Paliperidone (Invega) 3 mg QHS PO 06/08/19 21:00 06/09/19 11:24 DC 06/08/19 20:54 Quetiapine Fumarate (SEROquel) 25 mg BID PO 06/07/19 09:00 06/08/19 11:07 DC 06/08/19 09:38 Quetiapine Fumarate (SEROquel) 25 mg TIDP PRN PO anxiety 06/14/19 10:15 Quetiapine Fumarate (SEROquel) 50 mg QHS PO 06/14/19 21:00 06/15/19 20:36 Senna (Senokot) 1 tab QHS PRN PO CONSTIPATION 06/07/19 12:45 06/15/19 08:46 Allergies Coded Allergies: hydrocodone (Verified Allergy, Unknown, 05/01/19) lisdexamfetamine (Verified Adverse Reaction, Unknown, hallucinations, 05/01/19) trazodone (Verified Adverse Reaction, Unknown, "numbness", 05/01/19) CORNELIO SHARMA DO Jun 16, 2019 08:06
[2019-06-16] MEDS: NICOTINE 14 MG/24 HR TRANSDERMAL TD PRN (08:25)
[2019-06-16] MEDS: NICOTINE 21MG/24HR 1 EA TRANSDERMAL TD SCH (09:00)
[2019-06-16] MEDS: IBUPROFEN 600 MG TAB PO PRN ×2 (09:50→16:23)
[2019-06-16 17:15] VITALS: BP 129/63
[2019-06-16] MEDS: CARIPRAZINE 1.5MG CAPSULE (VRAYLAR) PO SCH (20:15)
[2019-06-16] MEDS: lamoTRIgine 25 MG TAB PO SCH (20:16)
[2019-06-16] MEDS: QUEtiapine FUMARATE 50 MG TAB PO SCH (20:16)
[2019-06-16] MEDS: OLANZapine ORAL DISINTEGRATING TAB 5MG PO PRN (22:07)
[2019-06-16] MEDS: QUEtiapine FUMARATE 25 MG TAB PO PRN (22:07)
[2019-06-17 05:52] VITALS: BP 116/63
[2019-06-17] MEDS: IBUPROFEN 600 MG TAB PO PRN ×3 (07:18→21:48)
[2019-06-17] MEDS: LITHIUM CARBONATE 300 MG CAP PO SCH ×2 (08:28→20:42)
[2019-06-17] MEDS: OMEPRAZOLE 20 MG CAP PO SCH (08:28)
[2019-06-17] MEDS: FLUTICASONE PROP 0.05% NASAL SPRAY 16 GM (FLONASE) NARES SCH (08:28)
[2019-06-17] MEDS: QUEtiapine FUMARATE 25 MG TAB PO PRN (08:29)
[2019-06-17] MEDS: NICOTINE 21MG/24HR 1 EA TRANSDERMAL TD SCH (09:00)
[2019-06-17] MEDS: hydrOXYzine 25 MG TAB PO PRN (12:18)
[2019-06-17 15:37] VITALS: BP 125/73
[2019-06-17] MEDS: OLANZapine ORAL DISINTEGRATING TAB 5MG PO PRN (18:13)
[2019-06-17] MEDS: lamoTRIgine 25 MG TAB PO SCH (20:43)
[2019-06-17] MEDS: CARIPRAZINE 3MG CAPSULE (VRAYLAR) PO SCH (20:43)
[2019-06-17] MEDS: QUEtiapine FUMARATE 100 MG TAB PO SCH (20:43)
[2019-06-18] MEDS: IBUPROFEN 600 MG TAB PO PRN ×2 (04:55→14:34)
[2019-06-18 06:08] VITALS: BP 138/82
[2019-06-18] MEDS: LITHIUM CARBONATE 300 MG CAP PO SCH ×3 (08:16→20:03)
[2019-06-18] MEDS: FLUTICASONE PROP 0.05% NASAL SPRAY 16 GM (FLONASE) NARES SCH (08:19)
[2019-06-18] MEDS: hydrOXYzine 25 MG TAB PO PRN ×2 (08:19→14:34)
[2019-06-18] MEDS: OMEPRAZOLE 20 MG CAP PO SCH (08:19)
[2019-06-18] MEDS: NICOTINE 21MG/24HR 1 EA TRANSDERMAL TD SCH (08:23)
--- NOTE | 2019-06-18 13:03 | MHIPNPDOC ---
[facility] Progress Note Progress Note Inpatient Progress Note Soraya Jane MRN: N/A Date of : N/A Date of Service: 06/18/2019 History of Present Illness The patient, a well known woman with bipolar disorder who is 28 years old, presents to [facility] after becoming increasingly agitated, psychotic after ceasing her medications for several days. She had been discharged after an argument with her father, but appears at that time that she had likely stopped some of her medications and some had been altered in the interim. Her father reported that she got "ten times worse," becoming labile, unable to control herself, yelling, screaming, paranoid, usual statements, becoming agitated to the point that she needed to be restrained in the ER. She is still paranoid and psychotic that she is unable to be interviewed today, as she screams and yells, thrashes about, and is significantly impaired at this time. Interval History Psychiatric symptoms today: Affective: Much improved manic symptoms with much less irritability, better sleep, improved ability to focus, much less talkative and with better behavioral control. Psychotic: Much less paranoia, anger and disorganization. Anxiety: Improved, much less worried. Misc: Improved sleep. Group Attendance: Strong group attendance every day. Medication Side effects: See ROS below Behavioral problems/significant events overnight: No significant events noted overnight. Staff Report: Improvement today. Review Of Systems Cardiovascular: Denies Chest pain or palpations GI: Denies Nausea, vomiting, or bowel changes Respiratory: Denies shortness of breath or cough Neuro: Denies dizziness, tremors Derm: Denies any rashes or pruritus : Denies any dysuria or urinary problems MSK: Denies any muscle tightness or stiffness HEENT: Denies any vision changes or headaches Psychotherapy None on this visit. Vital Signs Reviewed. Mental Status Examination General: Fair hygiene Speech: Improved Thought processes: Improved MSK: No restlessness Thought content: Improved Abstract reasoning, and computation: Improved Description of associations: Impaired Description of abnormal or psychotic thoughts: Denies any suicidal or homicidal thoughts, denies any auditory or visual hallucinations Judgment: Improved Insight: Improved Orientation: Alert and orientated 3 Cognition: Grossly normal Recent and remote memory: Intact Attention span and concentration: Intact Fund of knowledge: Adequate Mood: "Good" Affect: Euthymic Diagnoses Bipolar disorder type 1, most recent episode mixed. Borderline personality disorder. PTSD, chronic. Assessment and Plan Bipolar disorder type 1: Continue cariprazine 6 mg nightly. Continue lithium, Seroquel and Lamictal at current levels. Borderline personality disorder: Likely not at play with current symptoms. PTSD, chronic: As above. Disposition Observation over the weekend, potential discharge on Friday if continued improvement. Time Spent 20 minutes. Friday Vital Signs Vital Signs Date Time Temp Pulse Resp B/P (MAP) Pulse Ox O2 Delivery O2 Flow Rate FiO2 06/18/19 06:08 98.3 91 16 138/82 (100) 06/14/19 06:30 Room Air Current Medications Current Medications Medications (Trade) Dose Ordered Sig/Lynn Route PRN Reason Start Time Stop Time Status Last Admin Dose Admin Acetaminophen (Tylenol Tab) 650 mg Q6HP PRN PO PAIN / FEVER 06/08/19 09:45 06/09/19 18:26 DC 06/09/19 11:42 Cariprazine (Vraylar) 1.5 mg DAILY PO 06/10/19 09:00 06/10/19 11:46 DC 06/10/19 08:05 Cariprazine (Vraylar) 3 mg QHS PO 06/11/19 21:00 06/14/19 07:56 DC 06/13/19 19:59 Cariprazine (Vraylar) 4.5 mg QHS PO 06/14/19 21:00 06/17/19 09:13 DC 06/16/19 20:15 Cariprazine (Vraylar) 6 mg QHS PO 06/17/19 21:00 06/17/19 20:43 Chlorpromazine HCl (Thorazine) 50 mg Q4HP PRN PO ANXIETY/AGITATION 06/12/19 15:00 06/15/19 14:01 DC 06/14/19 22:53 Chlorpromazine HCl (Thorazine) 50 mg STAT STAT IM 06/07/19 05:31 06/07/19 05:32 DC 06/07/19 05:43 Diphenhydramine HCl (Benadryl) 50 mg STAT STAT IM 06/07/19 19:58 06/07/19 20:01 DC 06/07/19 20:08 Fluticasone Propionate (Flonase 0.05% Nasal [place]) 1 spray DAILY NARES 06/07/19 09:00 06/18/19 08:19 Haloperidol (Haldol) 10 mg STAT STAT IM 06/07/19 19:58 06/07/19 20:01 DC 06/07/19 20:08 Home Med (Med Rec Complete!) ASDIRECTED XX 06/07/19 12:15 06/07/19 12:06 DC Hydroxyzine HCl (Atarax) 10 mg Q6H PO 06/07/19 12:00 06/08/19 11:07 DC 06/07/19 15:35 Hydroxyzine HCl (Atarax) 25 mg Q2H PRN PO anxiety 06/10/19 11:45 06/18/19 08:19 Hydroxyzine HCl (Atarax) 25 mg Q6H PO 06/08/19 12:00 06/08/19 17:46 DC Hydroxyzine HCl (Atarax) 25 mg Q6H PO 06/08/19 18:00 06/10/19 11:46 DC 06/10/19 05:50 Ibuprofen (Advil) 400 mg Q6HP PRN PO PAIN 06/07/19 12:45 06/08/19 09:37 DC 06/07/19 14:34 Ibuprofen (Advil) 600 mg Q6HP PRN PO MODERATE PAIN (PS 5-7) 06/09/19 18:30 06/18/19 04:55 Lamotrigine (LaMICtal) 25 mg QHS PO 06/14/19 21:00 06/15/19 14:01 DC 06/14/19 20:31 Lamotrigine (LaMICtal) 50 mg QHS PO 06/15/19 21:00 06/17/19 09:13 DC 06/16/19 20:16 Lamotrigine (LaMICtal) 75 mg QHS PO 06/17/19 21:00 06/17/19 20:43 Lamotrigine (LaMICtal) 300 mg DAILY PO 06/07/19 09:00 06/08/19 11:07 DC 06/08/19 09:38 [place] Carbonate ([place] Carbonate) 300 mg BID PO 06/14/19 09:00 06/15/19 14:01 DC 06/15/19 08:47 [place] Carbonate ([place] Carbonate) 300 mg BID PO 06/07/19 09:00 06/09/19 11:24 DC 06/09/19 08:27 [place] Carbonate ([place] Carbonate) 600 mg BID PO 06/15/19 21:00 06/18/19 11:12 Lorazepam (Ativan) 2 mg Q4HP PRN PO ANXIETY/AGITATION 06/12/19 15:00 06/15/19 14:01 DC 06/15/19 11:13 Lorazepam (Ativan) 2 mg STAT STAT IM 06/07/19 19:58 06/07/19 20:01 DC 06/07/19 20:08 Lorazepam (Ativan) 2 mg STAT STAT IM 06/08/19 12:01 06/08/19 12:03 DC 06/08/19 12:07 Magnesium Hydroxide (Milk Of Magnesia) 30 ml DAILYPRN PRN PO CONSTIPATION 06/07/19 12:45 06/14/19 17:18 Nicotine (Nicoderm Cq 14mg) 1 patch DAILYPRN PRN TD NICOTINE WITHDRAWAL 06/09/19 17:00 06/10/19 11:46 DC 06/10/19 08:05 Nicotine (Nicoderm Cq 14mg) 2 patch DAILYPRN PRN TD NICOTINE WITHDRAWAL 06/10/19 11:45 06/16/19 10:34 DC 06/16/19 08:25 Nicotine (Nicoderm Cq 21mg) 2 patch DAILY TD 06/16/19 09:00 06/18/19 08:23 Olanzapine (ZyPREXA ZYDIS) 5 mg Q4HP PRN PO AGITATION 06/07/19 12:45 06/17/19 18:13 Omeprazole (PriLOSEC) 20 mg DAILY PO 06/07/19 09:00 06/18/19 08:19 Paliperidone (Invega) 3 mg QHS PO 06/14/19 21:00 06/14/19 10:05 DC Paliperidone (Invega) 3 mg QHS PO 06/08/19 21:00 06/09/19 11:24 DC 06/08/19 20:54 Quetiapine Fumarate (SEROquel) 25 mg BID PO 06/07/19 09:00 06/08/19 11:07 DC 06/08/19 09:38 Quetiapine Fumarate (SEROquel) 25 mg TIDP PRN PO anxiety 06/14/19 10:15 06/17/19 08:29 Quetiapine Fumarate (SEROquel) 50 mg QHS PO 06/14/19 21:00 06/17/19 09:13 DC 06/16/19 20:16 Quetiapine Fumarate (SEROquel) 100 mg QHS PO 06/17/19 21:00 06/17/19 20:43 Senna (Senokot) 1 tab QHS PRN PO CONSTIPATION 06/07/19 12:45 06/15/19 08:46 Allergies Coded Allergies: hydrocodone (Verified Allergy, Unknown, 05/01/19) lisdexamfetamine (Verified Adverse Reaction, Unknown, hallucinations, 05/01/19) trazodone (Verified Adverse Reaction, Unknown, "numbness", 05/01/19) CORNELIO SHARMA DO Jun 18, 2019 13:03
[2019-06-18 16:34] VITALS: BP 128/66
[2019-06-18] MEDS ORDERED: FIORICET TAB PO ONE (19:15)
[2019-06-18] MEDS: QUEtiapine FUMARATE 100 MG TAB PO SCH (20:03)
[2019-06-18] MEDS: SENNA 8.6 MG TAB (SENOKOT) PO PRN (20:03)
[2019-06-18] MEDS: lamoTRIgine 25 MG TAB PO SCH (20:03)
[2019-06-18] MEDS: CARIPRAZINE 3MG CAPSULE (VRAYLAR) PO SCH (20:03)
[2019-06-18] MEDS ORDERED: FIORICET TAB PO PRN (23:00)
[2019-06-19 06:00] VITALS: BP 121/72
[2019-06-19] MEDS: IBUPROFEN 600 MG TAB PO PRN ×2 (07:12→19:24)
[2019-06-19] MEDS: FLUTICASONE PROP 0.05% NASAL SPRAY 16 GM (FLONASE) NARES SCH (08:10)
[2019-06-19] MEDS: LITHIUM CARBONATE 300 MG CAP PO SCH ×2 (08:11→20:18)
[2019-06-19] MEDS: OMEPRAZOLE 20 MG CAP PO SCH (08:11)
[2019-06-19] MEDS: NICOTINE 21MG/24HR 1 EA TRANSDERMAL TD SCH (08:11)
[2019-06-19] MEDS: hydrOXYzine 25 MG TAB PO PRN (15:15)
[2019-06-19 16:15] VITALS: BP 122/64
--- NOTE | 2019-06-19 17:42 | MHIPNPDOC ---
[facility] Progress Note Progress Note DATE OF SERVICE: 06/19/19 HISTORY: . VITAL SIGNS: See below. NEW TEST RESULTS: . CURRENT MEDICATIONS: See below. MENTAL STATUS EXAMINATION: Patient is a -year old female, who is . Speech: Is . Language skills are . Thought processes including: . Thought content: . Abstract reasoning, and computation: . Description of asso ciations: . Description of abnormal or psychotic thoughts: . Judgment: . Insight: [very limited, good, fair. poor]. Orientation: . Recent and remote memory: . Attention span and concentration: . Language: . Fund of knowledge: . Mood: . Affect: . DIAGNOSES: 1. . 2. . 3. . ASSESSMENT: MANAGEMENT PLAN: . TIME SPENT: minutes. Vital Signs Vital Signs Date Time Temp Pulse Resp B/P (MAP) Pulse Ox O2 Delivery O2 Flow Rate FiO2 06/19/19 16:15 98.0 95 16 122/64 (83) 06/14/19 06:30 Room Air Current Medications Current Medications Medications (Trade) Dose Ordered Sig/Lynn Route PRN Reason Start Time Stop Time Status Last Admin Dose Admin Acetaminophen (Tylenol Tab) 650 mg Q6HP PRN PO PAIN / FEVER 06/08/19 09:45 06/09/19 18:26 DC 06/09/19 11:42 Acetaminophen/ Butalbital/ Caffeine (Fioricet) 1 ea Q4HP PRN PO HEADACHE 06/18/19 23:00 06/19/19 10:04 Cariprazine (Vraylar) 1.5 mg DAILY PO 06/10/19 09:00 06/10/19 11:46 DC 06/10/19 08:05 Cariprazine (Vraylar) 3 mg QHS PO 06/11/19 21:00 06/14/19 07:56 DC 06/13/19 19:59 Cariprazine (Vraylar) 4.5 mg QHS PO 06/14/19 21:00 06/17/19 09:13 DC 06/16/19 20:15 Cariprazine (Vraylar) 6 mg QHS PO 06/17/19 21:00 06/18/19 20:03 Chlorpromazine HCl (Thorazine) 50 mg Q4HP PRN PO ANXIETY/AGITATION 06/12/19 15:00 06/15/19 14:01 DC 06/14/19 22:53 Chlorpromazine HCl (Thorazine) 50 mg STAT STAT IM 06/07/19 05:31 06/07/19 05:32 DC 06/07/19 05:43 Diphenhydramine HCl (Benadryl) 50 mg STAT STAT IM 06/07/19 19:58 06/07/19 20:01 DC 06/07/19 20:08 Fluticasone Propionate (Flonase 0.05% Nasal [place]) 1 spray DAILY NARES 06/07/19 09:00 06/19/19 08:10 Haloperidol (Haldol) 10 mg STAT STAT IM 06/07/19 19:58 06/07/19 20:01 DC 06/07/19 20:08 Home Med (Med Rec Complete!) ASDIRECTED XX 06/07/19 12:15 06/07/19 12:06 DC Hydroxyzine HCl (Atarax) 10 mg Q6H PO 06/07/19 12:00 06/08/19 11:07 DC 06/07/19 15:35 Hydroxyzine HCl (Atarax) 25 mg Q2H PRN PO anxiety 06/10/19 11:45 06/19/19 15:15 Hydroxyzine HCl (Atarax) 25 mg Q6H PO 06/08/19 12:00 06/08/19 17:46 DC Hydroxyzine HCl (Atarax) 25 mg Q6H PO 06/08/19 18:00 06/10/19 11:46 DC 06/10/19 05:50 Ibuprofen (Advil) 400 mg Q6HP PRN PO PAIN 06/07/19 12:45 06/08/19 09:37 DC 06/07/19 14:34 Ibuprofen (Advil) 600 mg Q6HP PRN PO MODERATE PAIN (PS 5-7) 06/09/19 18:30 06/19/19 07:12 Lamotrigine (LaMICtal) 25 mg QHS PO 06/14/19 21:00 06/15/19 14:01 DC 06/14/19 20:31 Lamotrigine (LaMICtal) 50 mg QHS PO 06/15/19 21:00 06/17/19 09:13 DC 06/16/19 20:16 Lamotrigine (LaMICtal) 75 mg QHS PO 06/17/19 21:00 06/18/19 20:03 Lamotrigine (LaMICtal) 300 mg DAILY PO 06/07/19 09:00 06/08/19 11:07 DC 06/08/19 09:38 [place] Carbonate ([place] Carbonate) 300 mg BID PO 06/14/19 09:00 06/15/19 14:01 DC 06/15/19 08:47 [place] Carbonate ([place] Carbonate) 300 mg BID PO 06/07/19 09:00 06/09/19 11:24 DC 06/09/19 08:27 [place] Carbonate ([place] Carbonate) 600 mg BID PO 06/15/19 21:00 06/19/19 08:11 Lorazepam (Ativan) 2 mg Q4HP PRN PO ANXIETY/AGITATION 06/12/19 15:00 06/15/19 14:01 DC 06/15/19 11:13 Lorazepam (Ativan) 2 mg STAT STAT IM 06/07/19 19:58 06/07/19 20:01 DC 06/07/19 20:08 Lorazepam (Ativan) 2 mg STAT STAT IM 06/08/19 12:01 06/08/19 12:03 DC 06/08/19 12:07 Magnesium Hydroxide (Milk Of Magnesia) 30 ml DAILYPRN PRN PO CONSTIPATION 06/07/19 12:45 06/14/19 17:18 Nicotine (Nicoderm Cq 14mg) 1 patch DAILYPRN PRN TD NICOTINE WITHDRAWAL 06/09/19 17:00 06/10/19 11:46 DC 06/10/19 08:05 Nicotine (Nicoderm Cq 14mg) 2 patch DAILYPRN PRN TD NICOTINE WITHDRAWAL 06/10/19 11:45 06/16/19 10:34 DC 06/16/19 08:25 Nicotine (Nicoderm Cq 21mg) 2 patch DAILY TD 06/16/19 09:00 06/19/19 08:11 Olanzapine (ZyPREXA ZYDIS) 5 mg Q4HP PRN PO AGITATION 06/07/19 12:45 06/17/19 18:13 Omeprazole (PriLOSEC) 20 mg DAILY PO 06/07/19 09:00 06/19/19 08:11 Paliperidone (Invega) 3 mg QHS PO 06/14/19 21:00 06/14/19 10:05 DC Paliperidone (Invega) 3 mg QHS PO 06/08/19 21:00 06/09/19 11:24 DC 06/08/19 20:54 Quetiapine Fumarate (SEROquel) 25 mg BID PO 06/07/19 09:00 06/08/19 11:07 DC 06/08/19 09:38 Quetiapine Fumarate (SEROquel) 25 mg TIDP PRN PO anxiety 06/14/19 10:15 06/17/19 08:29 Quetiapine Fumarate (SEROquel) 50 mg QHS PO 06/14/19 21:00 06/17/19 09:13 DC 06/16/19 20:16 Quetiapine Fumarate (SEROquel) 100 mg QHS PO 06/17/19 21:00 06/18/19 20:03 Senna (Senokot) 1 tab QHS PRN PO CONSTIPATION 06/07/19 12:45 06/18/19 20:03 Allergies Coded Allergies: hydrocodone (Verified Allergy, Unknown, 05/01/19) lisdexamfetamine (Verified Adverse Reaction, Unknown, hallucinations, 05/01/19) trazodone (Verified Adverse Reaction, Unknown, "numbness", 05/01/19) CORNELIO SHARMA DO Jun 19, 2019 17:42
[2019-06-19] MEDS: CARIPRAZINE 3MG CAPSULE (VRAYLAR) PO SCH (20:17)
[2019-06-19] MEDS: lamoTRIgine 25 MG TAB PO SCH (20:17)
[2019-06-19] MEDS: SENNA 8.6 MG TAB (SENOKOT) PO PRN (20:18)
[2019-06-19] MEDS: QUEtiapine FUMARATE 100 MG TAB PO SCH (20:18)
[2019-06-19] MEDS: OLANZapine ORAL DISINTEGRATING TAB 5MG PO PRN (21:19)
[2019-06-20 06:19] VITALS: BP 118/58
[2019-06-20] MEDS: LITHIUM CARBONATE 300 MG CAP PO SCH ×3 (09:00→20:28)
[2019-06-20] MEDS: OMEPRAZOLE 20 MG CAP PO SCH (09:08)
[2019-06-20] MEDS: FLUTICASONE PROP 0.05% NASAL SPRAY 16 GM (FLONASE) NARES SCH (09:08)
[2019-06-20] MEDS: NICOTINE 21MG/24HR 1 EA TRANSDERMAL TD SCH (09:10)
[2019-06-20] MEDS: hydrOXYzine 25 MG TAB PO PRN ×2 (10:04→17:12)
[2019-06-20 19:00] VITALS: BP 118/70
[2019-06-20] MEDS: IBUPROFEN 600 MG TAB PO PRN (19:49)
[2019-06-20] MEDS: QUEtiapine FUMARATE 100 MG TAB PO SCH (20:28)
[2019-06-20] MEDS: CARIPRAZINE 3MG CAPSULE (VRAYLAR) PO SCH (20:29)
[2019-06-20] MEDS: SENNA 8.6 MG TAB (SENOKOT) PO PRN (20:29)
[2019-06-20] MEDS: lamoTRIgine 25 MG TAB PO SCH (20:29)
[2019-06-21 06:26] VITALS: BP 122/63
[2019-06-21] MEDS: NICOTINE 21MG/24HR 1 EA TRANSDERMAL TD SCH (08:05)
[2019-06-21] MEDS: OMEPRAZOLE 20 MG CAP PO SCH (08:06)
[2019-06-21] MEDS: LITHIUM CARBONATE 300 MG CAP PO SCH (08:06)
[2019-06-21] MEDS: FLUTICASONE PROP 0.05% NASAL SPRAY 16 GM (FLONASE) NARES SCH (08:06)
[2019-06-21] MEDS: IBUPROFEN 600 MG TAB PO PRN (08:08)
[2019-06-21] MEDS ORDERED: NICO21PAT TD (10:21)
[2019-06-21] MEDS ORDERED: QUET1TAB7 PO (10:21)
[2019-06-21] MEDS ORDERED: QUET1TAB8 PO (10:21)
[2019-06-21] MEDS ORDERED: LAMI25TA PO (10:21)
[2019-06-21] MEDS ORDERED: VRAY6CAP PO (10:21)
[2019-06-21] MEDS ORDERED: LITH600C PO (10:21)
--- NOTE | 2019-06-21 10:44 | MHDSPDOC ---
[facility] Discharge Summary Discharge Summary DATE OF ADMISSION: Jun 07, 2019 at 12:42 DATE OF DISCHARGE: 06/21/19 Discharge Soraya Jane MRN: N/A Date of : N/A Date of Service: 06/21/2019 Diagnoses Bipolar disorder type 1, most recent episode mixed. Borderline personality disorder. PTSD, chronic. History of Present Illness The patient, a well known woman with bipolar disorder who is 28 years old, presents to [facility] after becoming increasingly agitated, psychotic after ceasing her medications for several days. She had been discharged after an argument with her father, but appears at that time that she had likely stopped some of her medications and some had been altered in the interim. Her father reported that she got "ten times worse," becoming labile, unable to control herself, yelling, screaming, paranoid, usual statements, becoming agitated to the point that she needed to be restrained in the ER. She is still paranoid and psychotic that she is unable to be interviewed today, as she screams and yells, thrashes about, and is significantly impaired at this time. Consultants Involved Hospitalist/PCP screening Treatment and Progress On The Unit The patient was admitted to the inpatient unit with increased violent behavior, paranoia and psychosis consistent with a mixed episode of bipolar. The patient was initially upset about different medication. She was tried on solely Vraylar for short time of 1.5 mg of which was not able to cover symptoms. She was eventually increased on Lamictal, restarted as she been taken off of it to 75 mg total. She was restarted on lithium of which was increased to 600 mg BID. Additionally, Seroquel was started at 25 mg and increased 100 mg night with a TID PRN. Eventually, her Vraylar was increased to a total maximum of 6 mg at night. She eventually began to calm down her medications, took effect and she although was quite violent and aggressive, needed to be coded. When she first arrived she became much more able to converse and eventually was able to become euthymic and returned to her insightful baseline where she was observed over the weekend and subsequently discharged on the following Friday after being observed on her medications. She did well and returned to her well known baseline of being insightful and well behaved. Discharge Assessment 28-year-old woman with a significant history of bipolar disorder, borderline personality disorder, and PTSD, presents in a mixed episode. She is treated with a complicated combination of medications; however, it appears to soothe her symptoms and return her to her insightful baseline. On the day of discharge, she does not meet involuntary criteria as she has been denying any suicidal or homicidal ideation for last several days and she has a normal mental status exam of which has been sustained for last 3 days. She reports she is doing well, was cooperative and declines any further voluntary admission, is discharged in good erik. Mental Status Examination General: Well dressed with good hygiene Speech: Spontaneous and fluid Thought processes: Linear and logical MSK: Smooth and coordinated gait, no signs of tremors or involuntary orofacial movements Thought content: Future orientated Abstract reasoning, and computation: Intact Description of associations: Intact Description of abnormal or psychotic thoughts: Denies any suicidal or homicidal ideation. Denies any auditory or visual hallucinations. Does not appear to be responding to internal stimuli. Does not appear to be endorsing any bizarre or paranoid ideation. Judgment: fair Insight: fair Orientation: Alert and orientated 3 Cognition: Grossly normal Recent and remote memory: Intact Attention span and concentration: Intact Fund of knowledge: Adequate Mood: "okay" Affect: Euthymic with a full range Follow Up The social work team worked during the predischarge meeting in order to evaluate for further issues of lethality address them fully before discharge. They worked on safety planning with the patient's family members in order to ensure that the patient will have a safe and effective discharge. Time Spent The amount of time spent in the coordination of care for this patient was approximately 35 minutes. Friday Vital Signs/I&Os Vital Signs Date Time Temp Pulse Resp B/P (MAP) Pulse Ox O2 Delivery O2 Flow Rate FiO2 06/21/19 06:26 98.7 84 12 122/63 (82) Medications Scheduled Cariprazine HCl (Vraylar) 6 Mg Capsule, 1 CAP PO QHS for mood for 30 Days, #30 Ergocalciferol (Vitamin D2) (Vitamin D2) 50,000 Units Cap, 50,000 UNITS PO Q WEEK, (Reported) Fluticasone Propionate (Fluticasone Propionate) 16 Gm [place].susp, 1 SPRAY NARES DAILY, (Reported) Hydroxyzine HCl (Hydroxyzine HCl) 10 Mg Tablet, 10 MG PO Q6H, (Reported) Lamotrigine (Lamotrigine) 150 Mg Tablet, 300 MG PO DAILY, (Reported) Lamotrigine (Lamictal) 25 Mg Tablet, 75 MG PO QHS for mood for 7 Days, #21 [place] [employer] Carbonate ([employer] Carbonate) 600 Mg Capsule, 1 CAP PO BID for mood for 7 Days, #14 Nicotine (Nicotine Patch) 21 Mg Patch.td24, 2 PATCH TD DAILY for tobacco for 30 Days, #60 Quetiapine Fumarate (Quetiapine Fumarate) 100 Mg Tablet, 100 MG PO QHS for mood for 7 Days, #7 Scheduled PRN Quetiapine Fumarate (Quetiapine Fumarate) 25 Mg Tablet, 25 MG PO TIDP PRN for anxiety for 7 Days, #21 Sennosides (Senna) 8.6 Mg Tablet, 17.2 MG PO QHS PRN for CONSTIPATION, (Reported) Allergies Coded Allergies: hydrocodone (Verified Allergy, Unknown, 05/01/19) lisdexamfetamine (Verified Adverse Reaction, Unknown, hallucinations, 05/01/19) trazodone (Verified Adverse Reaction, Unknown, "numbness", 05/01/19) CORNELIO SHARMA DO Jun 21, 2019 10:44
--- NOTE | 2019-06-22 18:20 | MHIPNPDOC ---
[facility] Progress Note Progress Note Late entry Inpatient Progress Note Soraya Jane MRN: N/A Date of : N/A Date of Service: 06/17/2019 History of Present Illness The patient, a well known woman with bipolar disorder who is 28 years old, presents to [facility] after becoming increasingly agitated, psychotic after ceasing her medications for several days. She had been discharged after an argument with her father, but appears at that time that she had likely stopped some of her medications and some had been altered in the interim. Her father reported that she got "ten times worse," becoming labile, unable to control herself, yelling, screaming, paranoid, usual statements, becoming agitated to the point that she needed to be restrained in the ER. She is still paranoid and psychotic that she is unable to be interviewed today, as s he screams and yells, thrashes about, and is significantly impaired at this time. Interval History Psychiatric symptoms today: Affective: irritable, unable to engage in interview, reports that she is "coming out of her skin", mood varies significantly. Psychotic: paranoid and disorganized, changes mind several times during interview Anxiety: worries about discharge Misc: Improved sleep by report Group Attendance: Strong group attendance every day. Medication Side effects: See ROS below Behavioral problems/significant events overnight: No significant events noted overnight. Staff Report: more irritablity, the patient has been attempted to be met with but is very angered that she isn't being discharged, calling various family members reporting that she is being dischared Review Of Systems unable due to mental status Psychotherapy None on this visit. Vital Signs Reviewed. Mental Status Examination General: Fair hygiene Speech: tangential Thought processes: tangential MSK: No restlessness Thought content: paranoid Abstract reasoning, and computation: Impaired Description of associations: Impaired Description of abnormal or psychotic thoughts: Denies any suicidal or homicidal thoughts, denies any auditory or visual hallucinations Judgment: Impaired Insight: Imparied Orientation: Alert and orientated 3 Cognition: Grossly normal Recent and remote memory: Intact Attention span and concentration: Intact Fund of knowledge: Adequate Mood: "Good" Affect: irritable Diagnoses Bipolar disorder type 1, most recent episode mixed. Borderline personality disorder. PTSD, chronic. Assessment and Plan Bipolar disorder type 1: Continue cariprazine 6 mg nightly. Continue lithium, Seroquel and Lamictal at current levels. Borderline personality disorder: Likely not at play with current symptoms. PTSD, chronic: As above. Disposition Will need longer admission to due the severity of her psychosis, she is unable to care for self and aggressive. Time Spent 20 minutes. Vital Signs Vital Signs Date Time Temp Pulse Resp B/P (MAP) Pulse Ox O2 Delivery O2 Flow Rate FiO2 06/21/19 06:26 98.7 84 12 122/63 (82) Current Medications Current Medications Medications (Trade) Dose Ordered Sig/Lynn Route PRN Reason Start Time Stop Time Status Last Admin Dose Admin Acetaminophen (Tylenol Tab) 650 mg Q6HP PRN PO PAIN / FEVER 06/08/19 09:45 06/09/19 18:26 DC 06/09/19 11:42 Acetaminophen/ Butalbital/ Caffeine (Fioricet) 1 ea Q4HP PRN PO HEADACHE 06/18/19 23:00 06/21/19 11:01 DC 06/19/19 10:04 Cariprazine (Vraylar) 1.5 mg DAILY PO 06/10/19 09:00 06/10/19 11:46 DC 06/10/19 08:05 Cariprazine (Vraylar) 3 mg QHS PO 06/11/19 21:00 06/14/19 07:56 DC 06/13/19 19:59 Cariprazine (Vraylar) 4.5 mg QHS PO 06/14/19 21:00 06/17/19 09:13 DC 06/16/19 20:15 Cariprazine (Vraylar) 6 mg QHS PO 06/17/19 21:00 06/21/19 11:01 DC 06/20/19 20:29 Chlorpromazine HCl (Thorazine) 50 mg Q4HP PRN PO ANXIETY/AGITATION 06/12/19 15:00 06/15/19 14:01 DC 06/14/19 22:53 Chlorpromazine HCl (Thorazine) 50 mg STAT STAT IM 06/07/19 05:31 06/07/19 05:32 DC 06/07/19 05:43 Diphenhydramine HCl (Benadryl) 50 mg STAT STAT IM 06/07/19 19:58 06/07/19 20:01 DC 06/07/19 20:08 Fluticasone Propionate (Flonase 0.05% Nasal [place]) 1 spray DAILY NARES 06/07/19 09:00 06/21/19 11:01 DC 06/21/19 08:06 Haloperidol (Haldol) 10 mg STAT STAT IM 06/07/19 19:58 06/07/19 20:01 DC 06/07/19 20:08 Home Med (Med Rec Complete!) ASDIRECTED XX 06/07/19 12:15 06/07/19 12:06 DC Hydroxyzine HCl (Atarax) 10 mg Q6H PO 06/07/19 12:00 06/08/19 11:07 DC 06/07/19 15:35 Hydroxyzine HCl (Atarax) 25 mg Q2H PRN PO anxiety 06/10/19 11:45 06/21/19 11:01 DC 06/20/19 17:12 Hydroxyzine HCl (Atarax) 25 mg Q6H PO 06/08/19 12:00 06/08/19 17:46 DC Hydroxyzine HCl (Atarax) 25 mg Q6H PO 06/08/19 18:00 06/10/19 11:46 DC 06/10/19 05:50 Ibuprofen (Advil) 400 mg Q6HP PRN PO PAIN 06/07/19 12:45 06/08/19 09:37 DC 06/07/19 14:34 Ibuprofen (Advil) 600 mg Q6HP PRN PO MODERATE PAIN (PS 5-7) 06/09/19 18:30 06/21/19 11:01 DC 06/21/19 08:08 Lamotrigine (LaMICtal) 25 mg QHS PO 06/14/19 21:00 06/15/19 14:01 DC 06/14/19 20:31 Lamotrigine (LaMICtal) 50 mg QHS PO 06/15/19 21:00 06/17/19 09:13 DC 06/16/19 20:16 Lamotrigine (LaMICtal) 75 mg QHS PO 06/17/19 21:00 06/21/19 11:01 DC 06/20/19 20:29 Lamotrigine (LaMICtal) 300 mg DAILY PO 06/07/19 09:00 06/08/19 11:07 DC 06/08/19 09:38 [place] Carbonate ([place] Carbonate) 300 mg BID PO 06/14/19 09:00 06/15/19 14:01 DC 06/15/19 08:47 [place] Carbonate ([place] Carbonate) 300 mg BID PO 06/07/19 09:00 06/09/19 11:24 DC 06/09/19 08:27 [place] Carbonate ([place] Carbonate) 600 mg BID PO 06/15/19 21:00 06/21/19 11:01 DC 06/21/19 08:06 Lorazepam (Ativan) 2 mg Q4HP PRN PO ANXIETY/AGITATION 06/12/19 15:00 06/15/19 14:01 DC 06/15/19 11:13 Lorazepam (Ativan) 2 mg STAT STAT IM 06/07/19 19:58 06/07/19 20:01 DC 06/07/19 20:08 Lorazepam (Ativan) 2 mg STAT STAT IM 06/08/19 12:01 06/08/19 12:03 DC 06/08/19 12:07 Magnesium Hydroxide (Milk Of Magnesia) 30 ml DAILYPRN PRN PO CONSTIPATION 06/07/19 12:45 06/21/19 11:01 DC 06/14/19 17:18 Nicotine (Nicoderm Cq 14mg) 1 patch DAILYPRN PRN TD NICOTINE WITHDRAWAL 06/09/19 17:00 06/10/19 11:46 DC 06/10/19 08:05 Nicotine (Nicoderm Cq 14mg) 2 patch DAILYPRN PRN TD NICOTINE WITHDRAWAL 06/10/19 11:45 06/16/19 10:34 DC 06/16/19 08:25 Nicotine (Nicoderm Cq 21mg) 2 patch DAILY TD 06/16/19 09:00 06/21/19 11:01 DC 06/20/19 09:10 Olanzapine (ZyPREXA ZYDIS) 5 mg Q4HP PRN PO AGITATION 06/07/19 12:45 06/21/19 11:01 DC 06/19/19 21:19 Omeprazole (PriLOSEC) 20 mg DAILY PO 06/07/19 09:00 06/21/19 11:01 DC 06/21/19 08:06 Paliperidone (Invega) 3 mg QHS PO 06/14/19 21:00 06/14/19 10:05 DC Paliperidone (Invega) 3 mg QHS PO 06/08/19 21:00 06/09/19 11:24 DC 06/08/19 20:54 Quetiapine Fumarate (SEROquel) 25 mg BID PO 06/07/19 09:00 06/08/19 11:07 DC 06/08/19 09:38 Quetiapine Fumarate (SEROquel) 25 mg TIDP PRN PO anxiety 06/14/19 10:15 06/21/19 11:01 DC 06/17/19 08:29 Quetiapine Fumarate (SEROquel) 50 mg QHS PO 06/14/19 21:00 06/17/19 09:13 DC 06/16/19 20:16 Quetiapine Fumarate (SEROquel) 100 mg QHS PO 06/17/19 21:00 06/21/19 11:01 DC 06/20/19 20:28 Senna (Senokot) 1 tab QHS PRN PO CONSTIPATION 06/07/19 12:45 06/21/19 11:01 DC 06/20/19 20:29 Allergies Coded Allergies: hydrocodone (Verified Allergy, Unknown, 05/01/19) lisdexamfetamine (Verified Adverse Reaction, Unknown, hallucinations, 05/01/19) trazodone (Verified Adverse Reaction, Unknown, "numbness", 05/01/19) CORNELIO SHARMA DO Jun 22, 2019 18:20
== END 2019-06-21 10:50 | disposition home or self-care (01) | DRG 885 ==
LOC: M ED 20:09 → M ED INP 06-07 12:42 → M PSY 06-07 19:55
PROVIDERS: ADMIT Psychiatry & Neurology Addiction Medicine; ATTEND Psychiatry & Neurology Addiction Medicine
DX: F31.63 Bipolar disorder, current episode mixed, severe, without psychotic features (principal); F60.3 Borderline personality disorder; F43.10 Post-traumatic stress disorder, unspecified; Z79.899 Other long term (current) drug therapy; Z88.5 Allergy status to narcotic agent; Z88.8 Allergy status to other drugs, medicaments and biological substances; K21.9 Gastro-esophageal reflux disease without esophagitis; G40.909 Epilepsy, unspecified, not intractable, without status epilepticus

== ENCOUNTER → 2019-06-29 | Outpatient (REF) | payer MEDICARE ==
[~2019-06-29] MED LIST changes: +FLUTISP NARES; +HYDR-643 PO; +LAMI25TA PO; +LAMO150T3 PO; +LITH600C PO; +MED REC COMMENT; -MONT10TA2 PO; +MONT10TA4 PO; +NICO21PAT TD; +QUET100T2 PO; +QUET5TAB; +VRAY6CAP PO
[2019-06-30 12:30] LABS: C REACTIVE PROTEIN QUANTITATIV < 0.30 MG/DL (0.00-0.30); RHEUMATOID FACTOR QUANT < 10.0 IU/ML (<15.0)
[2019-06-30 13:46] LABS: CHLAMYDIA DNA AMPLIFICATION NEGATIVE (NEGATIVE); GC DNA AMPLIFICATION NEGATIVE (NEGATIVE)
[2019-07-15 14:01] LABS: ANA (HEP2) Negative (.); CYCLIC CITRULLINATED PEPTIDE 10 units (0-19)
== END ==
LOC: M SFHCCLAY 14:49
PROVIDERS: ATTEND Family Medicine
DX: M25.561 Pain in right knee (principal); Z72.51 High risk heterosexual behavior
CPT/HCPCS: 81025; 85652; 86038; 86140; 86200; 86431; 87491; 87591; G0463

== ENCOUNTER → 2019-12-28 | Outpatient (REF) | payer MEDICARE ==
[~2019-12-28] MED LIST changes: +PANT40TA29 PO; -PANT40TA3 PO
[2020-03-20 14:22] LABS: GLUCOSE, FASTING SEE SEPARATE REPORT
== END ==
LOC: M SFHCCLAY 15:08
PROVIDERS: ATTEND Family Medicine
DX: F50.2 Bulimia nervosa (principal)

== ENCOUNTER → 2020-01-05 | Outpatient (REF) | payer MEDICARE ==
[2020-02-03 22:46] LABS: HEMOGLOBIN 12.3 g/dl (12.0-15.5); MEAN CORPUSCULAR HEMOGLOBIN 30.8 pg (27.0-33.0); MEAN CORPUSCULAR HGB CONC 33.2 g/dl (32.0-36.5); MEAN CORPUSCULAR VOLUME 92.7 fl (80.0-96.0); PLATELET COUNT, AUTOMATED 467 10^3/uL (150-450); RED BLOOD COUNT 3.99 10^6/uL (4.00-5.40); WHITE BLOOD COUNT 4.4 10^3/uL (4.0-10.0)
[2020-02-19 17:38] LABS: ALBUMIN 4.2 GM/DL (3.2-5.2); BILIRUBIN,TOTAL 0.3 MG/DL (0.2-1.0); CALCIUM LEVEL 9.7 MG/DL (8.5-10.1); CREATININE FOR GFR 1.14 MG/DL (0.55-1.30); FOLATE 11.7 NG/ML (>5.4); FREE T4 0.87 NG/DL (0.76-1.46); GLOMERULAR FILTRATION RATE 59.6 (>60); PTH INTACT 45.7 PG/ML (18.5-88.0); THYROID STIMULATING HORMONE 1.3 uIU/ML (0.358-3.740); TOTAL 25(OH) VITAMIN D 73.1 NG/ML (30.0-100.0); TOTAL PROTEIN 7.8 GM/DL (6.4-8.2)
== END ==
LOC: M SFHCCLAY 10:29
PROVIDERS: ATTEND Family Medicine
DX: F50.2 Bulimia nervosa (principal); Z79.899 Other long term (current) drug therapy

== ENCOUNTER → 2020-03-09 | Outpatient (REF) | payer MEDICARE | LOC: M SFHCCLAY 11:00 | PROVIDERS: ATTEND Family Medicine | DX: F50.2 Bulimia nervosa (principal); F31.70 Bipolar disorder, currently in remission, most recent episode unspecified ==

== ENCOUNTER → 2020-03-10 | Outpatient (REF) | payer MEDICARE ==
[2020-03-10 16:24] LABS: HEMATOCRIT 36.1 % (36.0-47.0); HEMOGLOBIN 11.5 g/dl (12.0-15.5); MEAN CORPUSCULAR HEMOGLOBIN 30.7 pg (27.0-33.0); MEAN CORPUSCULAR HGB CONC 31.9 g/dl (32.0-36.5); MEAN CORPUSCULAR VOLUME 96.3 fl (80.0-96.0); PLATELET COUNT, AUTOMATED 287 10^3/uL (150-450); RED BLOOD COUNT 3.75 10^6/uL (4.00-5.40); WHITE BLOOD COUNT 5.6 10^3/uL (4.0-10.0)
[2020-03-10 16:30] LABS: HCG, SERUM QUALITATIVE NEGATIVE (NEGATIVE)
[2020-03-10 16:41] LABS: ALT/SGPT 21 U/L (12-78); BILIRUBIN,TOTAL 0.2 MG/DL (0.2-1.0); BLOOD UREA NITROGEN 9 MG/DL (7-18); CALCIUM LEVEL 9.1 MG/DL (8.5-10.1); CARBON DIOXIDE LEVEL 30 MEQ/L (21-32); CHLORIDE LEVEL 99 MEQ/L (98-107); CREATININE FOR GFR 1.01 MG/DL (0.55-1.30); FREE T4 0.78 NG/DL (0.76-1.46); GLOMERULAR FILTRATION RATE > 60.0 (>60); GLUCOSE, FASTING 83 MG/DL (70-100); POTASSIUM SERUM 3.8 MEQ/L (3.5-5.1); SODIUM LEVEL 133 MEQ/L (136-145); TOTAL PROTEIN 7.7 GM/DL (6.4-8.2)
[2020-03-10 17:20] LABS: HEPATITIS B SURFACE ANTIBODY NEGATIVE (POSITIVE); HEPATITIS B SURFACE ANTIGEN NEGATIVE (NEGATIVE); HEPATITIS C VIRUS ABY INDEX 0.2 INDEX (<0.8); HIV 1&2 SCREEN CENTAUR NEGATIVE (NEGATIVE)
[2020-03-15 01:07] LABS: HEPATITIS A IgG TOTAL Negative (Negative)
== END ==
LOC: M SFHCCLAY 10:45
PROVIDERS: ATTEND Family Medicine
DX: F31.70 Bipolar disorder, currently in remission, most recent episode unspecified (principal); F50.2 Bulimia nervosa; Z11.1 Encounter for screening for respiratory tuberculosis; Z11.3 Encounter for screening for infections with a predominantly sexual mode of transmission

== ENCOUNTER 2020-08-18 22:39 | Inpatient (IN) | payer MEDICARE ==
[~2020-08-18] VITALS: Ht 157.5 cm; Wt 48.7 kg
[~2020-08-18 22:39] MED LIST changes: -MAG400TA PO; +MAGN400T35 PO; +MONT10TA10 PO; -MONT10TA4 PO; -QUET1TAB7 PO; +QUET25TA3 PO; +QUET50TA3; -QUET5TAB
[2020-08-18] MEDS ORDERED: OMEP-218 PO (23:23)
[2020-08-18] MEDS ORDERED: TRAN10TA PO (23:23)
[2020-08-19 00:10] LABS: HEMATOCRIT 36.4 % (36.0-47.0); HEMOGLOBIN 12.2 g/dl (12.0-15.5); MEAN CORPUSCULAR HEMOGLOBIN 31.2 pg (27.0-33.0); MEAN CORPUSCULAR HGB CONC 33.5 g/dl (32.0-36.5); MEAN CORPUSCULAR VOLUME 93.1 fl (80.0-96.0); PLATELET COUNT, AUTOMATED 276 10^3/uL (150-450); RED BLOOD COUNT 3.91 10^6/uL (4.00-5.40); WHITE BLOOD COUNT 7.7 10^3/uL (4.0-10.0)
[2020-08-19 00:30] LABS: HCG, SERUM QUALITATIVE NEGATIVE (NEGATIVE)
[2020-08-19 00:35] LABS: ACETAMINOPHEN LEVEL < 2.0 UG/ML (10.0-30.0); ALBUMIN 4.9 GM/DL (3.2-5.2); ALT/SGPT 16 U/L (12-78); BILIRUBIN,DIRECT 0.2 MG/DL (0.0-0.2); BILIRUBIN,TOTAL 0.7 MG/DL (0.2-1.0); BLOOD UREA NITROGEN 9 MG/DL (7-18); CALCIUM LEVEL 9.6 MG/DL (8.5-10.1); CARBON DIOXIDE LEVEL 28 MEQ/L (21-32); CHLORIDE LEVEL 104 MEQ/L (98-107); CREATININE FOR GFR 1.16 MG/DL (0.55-1.30); ETHYL ALCOHOL (ETHANOL) < 0.003 % (0.000-0.010); GLOMERULAR FILTRATION RATE 58.4 (>60); GLUCOSE, FASTING 81 MG/DL (70-100); POTASSIUM SERUM 4.4 MEQ/L (3.5-5.1); SALICYLATE LEVEL < 1.7 MG/DL (5.0-30.0); SODIUM LEVEL 136 MEQ/L (136-145); TOTAL PROTEIN 8.3 GM/DL (6.4-8.2)
[2020-08-19 01:35] LABS: AMPHETAMINES LEVEL URINE NEGATIVE (NEGATIVE); BARBITURATES URINE NEGATIVE (NEGATIVE); BENZODIAZEPINES URINE NEGATIVE (NEGATIVE); CANNABINOIDS URINE NEGATIVE (NEGATIVE); COCAINE METABOLITE URINE NEGATIVE (NEGATIVE); METHADONE URINE NEGATIVE (NEGATIVE); OPIATES URINE NEGATIVE (NEGATIVE); PHENCYCLIDINE URINE NEGATIVE (NEGATIVE)
[2020-08-19] MEDS ORDERED: MOM 30ML SUSPENSION UDC PO PRN (02:45)
[2020-08-19] MEDS ORDERED: traZODone 50 MG TAB PO PRN (02:45)
[2020-08-19] MEDS ORDERED: MAALOX 30 ML SUSP *UDC PO PRN (02:45)
[2020-08-19 04:00] LABS: RSV AMPLIFICATION NEGATIVE (NEGATIVE)
[2020-08-19] MEDS: ACETAMINOPHEN TAB 650MG DOSE (2X325MG) PO PRN ×2 (05:31→11:43)
[2020-08-19 06:27] VITALS: BP 121/83
[2020-08-19] MEDS ORDERED: [UNRECOGNIZED DRUG - REMARK] (08:54)
[2020-08-19] MEDS ORDERED: FLUTICASONE PROP 0.05% NASAL SPRAY 16 GM (FLONASE) NARES PRN (09:45)
[2020-08-19] MEDS: OMEPRAZOLE 20 MG CAP PO SCH (09:58)
[2020-08-19] MEDS: lamoTRIgine 100MG TAB PO SCH (09:58)
--- NOTE | 2020-08-19 11:01 | MHHPEPDOC ---
General Date Of Admission: Aug 19, 2020 Legal Status: 9.39 Chief Complaint In the ER, patient stated she felt like she wanted to and was relieved " History of Present Illness HISTORY OF THE PRESENT ILLNESS: Patient is a 29 -year-old , female Notes from 2019 admission The patient, a well known woman with bipolar disorder who is 28 years old, presents to [facility] after becoming increasingly agitated, psychotic after ceasing her medications for several days. She had been discharged after an argument with her father, but appears at that time that she had likely stopped some of her medications and some had been altered in the interim. Her father reported that she got "ten times worse," becoming labile, unable to control herself, yelling, screaming, paranoid, usual statements, becoming agitated to the point that she needed to be restrained in the ER. She is still paranoid and psychotic that she is unable to be interviewed today, as she screams and yells, thrashes about, and is significantly impaired at this time. Consultants Involved Hospitalist/PCP screening Treatment and Progress On The Unit The patient was admitted to the inpatient unit with increased violent behavior, paranoia and psychosis consistent with a mixed episode of bipolar. The patient was initially upset about different medication. She was tried on solely Vraylar for short time of 1.5 mg of which was not able to cover symptoms. She was eventually increased on Lamictal, restarted as she been taken off of it to 75 mg total. She was restarted on lithium of which was increased to 600 mg BID. Additionally, Seroquel was started at 25 mg and increased 100 mg night with a TID PRN. Eventually, her Vraylar was increased to a total maximum of 6 mg at night. She eventually began to calm down her medications, took effect and she although was quite violent and aggressive, needed to be coded. When she first arrived she became much more able to converse and eventually was able to become euthymic and returned to her insightful baseline where she was observed over the weekend and subsequently discharged on the following Friday after being observed on her medications. She did well and returned to her well known baseline of being insightful and well behaved. Discharge Assessment 28-year-old woman with a significant history of bipolar disorder, borderline personality disorder, and PTSD, presents in a mixed episode. She is treated with a complicated combination of medications; however, it appears to soothe her symptoms and return her to her insightful baseline. On the day of discharge, she does not meet involuntary criteria as she has been denying any suicidal or homicidal ideation for last several days and she has a normal mental status exam of which has been sustained for last 3 days. She reports she is doing well, was cooperative and declines any further voluntary admission, is discharged in good erik. Notes from ER today * Per RN, father brought Pt in with concerns for her physical as well as mental health. Pt was away at a [facility] [place] program for rehabilitation to address her eating disorder as well as bi-polar. The program was intended to be 18 months in length, however she had been there 5 when she called and asked to come home, so her dad went to get her yesterday. Dad reports a significant weight loss and is very concerned for her safety. Per RN, Pt will not make eye contact and refuses to speak to anyone when being addressed Further notes from ER * Pt presented to ED after reportedly seizing and fainting due to eating disorder. Pt was very guarded during interview with TW. Pt is very flat and depressed. pt reported that as it was happening she thought she was going to and she felt relieved. Pt said that then was the first time she said it out loud. Pt discussed how she has been at a [facility] [place] for 5 months and just called her dad yesterday to come get her and she doesn't feel safe now. Pt reported that she is not comfortable discussing why right now all she can say is that this is the first time she has felt safe to eat or drink anything. Pt denies SI to this extent in the past. When asked about self-harm pt stated that she "feels like she does that all the time." Pt stated "I'm scared for my life" multiple times during interview process. Pt reported being Dx with Bipolar disorder. Pt denied AH/VH and reported she had only had HI thoughts i n 2019 towards her dad during a manic state. Pt does not feel safe to be discharged at this time. After interview pt asked PSA for soup, while eating soup psa witnessed pt begin to talk to herself continously about food in her body and seemed to be yelling at herself. Thought disorganized but all seem to surround food. My notes:from today Patient climbed into corner of my office then crouched on floor beside my desk hen took things off my desk and smelled then and opened them. She states she has been here a couple times in the last 10 years. While being interviewed. She seems to have a great deal of thought blocking, combined with an enormous talk activities. She states that "I left [facility] on August 17. She states, "I had a grand mal seizure on the floor. She states she asked the retail account executive if she could leave and does not want to go back. It should be noted that patient has been taking an MAO inhibitor, Trancypromine, and we must determine when her last dose was. Psychiatric Review of Systems Depression (2 or more weeks): denies Katie (4 or more days of): irritable/elevated mood, expansive mood, talkati vity, pressured, flight of ideas, distractibility, engages in risky behavior Psychosis: delusions PTSD: denies Anxiety: denies Anxiety/ 6 months or more of: restlessness, keyed up, difficulty concentrating Past Psychiatric History Previous Psychiatric Diagnosis: Depression, bipolar disorder. Previous Psychiatric Admissions: 1. Known admission here. Will check for other past admissions Suicide Attempts:, Ideation. Psychiatric Follow-up:, Unclear at this time, patient was at [facility]. Psychiatric medications: MAO inhibitor tranylcypromine. Past Medical History Medical Problems Eating Disorder Head Injury: No Seizures: Yes Hospitalizations: Yes Surgeries: No Family Medical/Psychiatric HX Medical Problems Unknown at this time Addiction History denies Social History Childhood: Lack of information at this time Abuse/Trauma:. Denies. Current Living Situation: Moved back with father. Education:, High school, some college. Employment: Known at this time. Social Support:.family Legal: none Marital: Single. Mental Status Examination General Appearance: well groomed Build: thin Demeanor: preoccupied Eye Contact: average Activity: agitated Behavior: cooperative Speech: rapid, normal volume Mood: elevated, hypomanic Affect: full, inappropriate, labile Thought Process: circumstantial, tangential, loose Thought Content (Delusions): bizarre, denies SI, HI, AVH, delusions Thought Content (Aggressive): none reported Perception (Hallucinations): auditory, visual Perception (Other): none reported Cognition (Impairment of): none reported Cognition(Intelligence Est.): above average Oriented: Awake, Alert Insight: poor Judgment: Poor Psychosis: Psychotic Perceptions Diagnoses Bipolar Disorder A-FIB/CHADSVASC A-FIB History Current/History of A-Fib/PAF?: No Current PO Anticoag Therapy: No Age/Risk Factor Scoring CHADSVASC: CHADSVASC Response (Comments) Value Age Risk Factor Age < 65 years old 0 Gender Risk Factor Female 1 Hx of CHF No 0 Hx of HTN No 0 Hx of Stroke/TIA/or VTE No 0 Hx of Vascular Disease No 0 Total 1 Treatment Treatment ordered: NONE Initial Treatment Plan 1. Patient was admitted on a [9.39] status. 2. Complete history was obtained. 3. With patients permission, family will be contacted and database will be expanded. 4. Patients medication regimen will be reviewed and changed accordingly. 5. Patient will be provided with protected environment. 6. Patient will be treated with individual, group, and milieu therapies. 7. Patient will receive supportive psych-education. 8. Discharge planning will commence immediately. 9. Outpatient follow-up treatment will be strongly recommended. 10. The initial treatment plan will focus initially on: * Depression. * Risk for suicide. ESTIMATED LENGTH OF STAY: - DAYS. TIME SPENT COUNSELING AND COORDINATING INITIAL CARE: minutes. N/A-No Antipsychotics Vital Signs Vital Signs Date Time Temp Pulse Resp B/P (MAP) Pulse Ox O2 Delivery O2 Flow Rate FiO2 08/19/20 06:27 99.0 78 14 121/83 (96) 100 Room Air Laboratory Data 24H Labs Laboratory Tests 2 08/18/20 23:52: Nucleated Red Blood Cells % (auto) 0.0, Anion Gap 4L, Glomerular Filtration Rate 58.4L, Calcium Level 9.6, Total Bilirubin 0.7, Direct Bilirubin 0.2, Aspartate Amino Transf (AST/SGOT) 11, Alanine Aminotransferase (ALT/SGPT) 16, Alkaline Phosphatase 59, Total Protein 8.3H, Albumin 4.9, Albumin/Globulin Ratio 1.4, Thyroid Stimulating Hormone (TSH) 4.170H, Human Chorionic Gonadotropin, Qual NEGATIVE, Salicylates Level < 1.7L, Acetaminophen Level < 2.0L, Ethyl Alcohol Level < 0.003 08/19/20 00:59: Urine Opiates Screen NEGATIVE, Urine Methadone Screen NEGATIVE, Urine Barbiturates Screen NEGATIVE, Urine Phencyclidine Screen NEGATIVE, Urine Amphetamines Screen NEGATIVE, Urine Benzodiazepines Screen NEGATIVE, Urine Cocaine Metabolite Screen NEGATIVE, Urine Cannabinoids Screen NEGATIVE 08/19/20 03:09: Coronavirus (COVID-19)(PCR) NEGATIVE, Influenza Type A (RT-PCR) NEGATIVE, Influenza Type B (RT-PCR) NEGATIVE, Respiratory Syncytial Virus (PCR) NEGATIVE CBC/BMP Laboratory Tests 08/18/20 23:52 Medications Scheduled Ergocalciferol (Vitamin D2) (Vitamin D2) 50,000 Units Cap, 50,000 UNITS PO QWEEK, (Reported) Lamotrigine (Lamotrigine) 150 Mg Tablet, 300 MG PO DAILY, (Reported) Omeprazole (Omeprazole) 20 Mg Capsule.dr, 20 MG PO DAILY for ., (Reported) Tranylcypromine Sulfate (Tranylcypromine Sulfate) 10 Mg Tablet, 10 MG PO BID for ., (Reported) Scheduled PRN Fluticasone Propionate (Fluticasone Propionate) 16 Gm [place].susp, 1 SPRAY NARES DAILY PRN for CONGESTION, (Reported) Sennosides (Senna) 8.6 Mg Tablet, 17.2 MG PO QHS PRN for CONSTIPATION, (Reported) Miscellaneous Medications [Medication List] , for ., (Reported) MED LIST COMPILED WITH [facility] IN [place], [place]. Allergies Coded Allergies: hydrocodone (Verified Allergy, Unknown, 05/01/19) lisdexamfetamine (Verified Adverse Reaction, Unknown, hallucinations, 05/01/19) trazodone (Verified Adverse Reaction, Unknown, "numbness", 05/01/19) PUNEET AVINA MD Aug 19, 2020 11:01
[2020-08-19] MEDS ORDERED: QUEtiapine FUMARATE 100 MG TAB PO STA (11:43)
[2020-08-19] MEDS ORDERED: QUEtiapine FUMARATE 100 MG TAB PO ONE (11:45)
[2020-08-19] MEDS: diphenhydrAMINE 50MG CAP PO ONE ×2 (12:30→14:07)
[2020-08-19] MEDS: LORazepam 2 MG TAB PO ONE ×2 (12:30→14:07)
[2020-08-19] MEDS ORDERED: LORazepam 2 MG/ML VIAL IM STA (14:12)
[2020-08-19] MEDS ORDERED: HALOPERIDOL 5MG/ML VIAL (J1630 PER 1) IM STA (14:12)
[2020-08-19] MEDS ORDERED: diphenhydrAMINE 50MG/ML VIAL (J1200) IM STA (14:12)
[2020-08-19 14:45] VITALS: BP 129/83
[2020-08-19 15:00] VITALS: BP 128/78
[2020-08-19 15:15] VITALS: BP 136/76
[2020-08-19] MEDS ORDERED: QUEtiapine FUMARATE 200 MG TAB PO SCH ×2 (21:00)
[2020-08-19] MEDS ORDERED: diphenhydrAMINE 50MG CAP PO ONE ×2 (22:00→23:00)
[2020-08-19] MEDS ORDERED: LORazepam 2 MG TAB PO ONE ×2 (22:00→23:00)
[2020-08-20] MEDS ORDERED: INFLUENZA QUADRIVALENT PF VACCINE 0.5ML SYRINGE IM ONE (09:00)
--- NOTE | 2020-08-20 09:24 | HPEPDOC ---
[facility] Medical History & Physical Date of Admission Aug 19, 2020 Date of Service: Aug 20, 2020 History and Physical Hospitalist H&P dictated job # [id number]. pls have community center worker call [employer] at [phone] for stat child care coordinator. Vital Signs Vital Signs Date Time Temp Pulse Resp B/P (MAP) Pulse Ox O2 Delivery O2 Flow Rate FiO2 08/19/20 15:15 96.8 60 18 136/76 100 Room Air Home Medications Scheduled Ergocalciferol (Vitamin D2) (Vitamin D2) 50,000 Units Cap, 50,000 UNITS PO QWEEK Lamotrigine (Lamotrigine) 150 Mg Tablet, 300 MG PO DAILY Omeprazole (Omeprazole) 20 Mg Capsule.dr, 20 MG PO DAILY for . Tranylcypromine Sulfate (Tranylcypromine Sulfate) 10 Mg Tablet, 10 MG PO BID for . Scheduled PRN Fluticasone Propionate (Fluticasone Propionate) 16 Gm [place].susp, 1 SPRAY NARES DAILY PRN for CONGESTION Sennosides (Senna) 8.6 Mg Tablet, 17.2 MG PO QHS PRN for CONSTIPATION Miscellaneous Medications [Medication List] , for . MED LIST COMPILED WITH [facility] IN [place], [place]. Allergies Coded Allergies: hydrocodone (Verified Allergy, Unknown, 05/01/19) lisdexamfetamine (Verified Adverse Reaction, Unknown, hallucinations, 05/01/19) trazodone (Verified Adverse Reaction, Unknown, "numbness", 05/01/19) A-FIB/CHADSVASC A-FIB History Current/History of A-Fib/PAF?: No Current PO Anticoag Therapy: No Age/Risk Factor Scoring CHADSVASC: CHADSVASC Response (Comments) Value Age Risk Factor Age < 65 years old 0 Gender Risk Factor Female 1 Hx of CHF No 0 Hx of HTN No 0 Hx of Stroke/TIA/or VTE No 0 Hx of Diabetes No 0 Hx of Vascular Disease No 0 Total 1 Treatment Treatment ordered: NONE LAKESHA ADAM MD Aug 20, 2020 09:24
[2020-08-20] MEDS: OMEPRAZOLE 20 MG CAP PO SCH (10:35)
[2020-08-20] MEDS: QUEtiapine FUMARATE 100 MG TAB PO SCH ×2 (10:36→15:23)
[2020-08-20] MEDS: lamoTRIgine 100MG TAB PO SCH (10:36)
--- NOTE | 2020-08-20 12:13 | MHIPNPDOC ---
[facility] Progress Note Progress Note DATE OF SERVICE: 08/20/20 HISTORY: * Pt presented to ED after reportedly seizing and fainting due to eating disorder. Pt was very guarded during interview with TW. Pt is very flat and depressed. pt reported that as it was happening she thought she was going to and she felt relieved. Pt said that then was the first time she said it out loud. Pt discussed how she has been at a [facility] retreat named [email or web address] for 5 months and just called her dad yesterday to come get her and she doesn't feel safe now. Pt reported that she is not comfortable discussing why right now all she can say is that this is the first time she has felt safe to eat or drink anything. Pt denies SI to this extent in the past. When asked about self-harm pt stated that she "feels like she does that all the time." Pt stated "I'm scared for my life" multiple times during interview process. Pt reported being Dx with Bipolar disorder. Pt denied AH/VH and reported she had only had HI thoughts in 2019 towards her dad during a manic state. Pt does not feel safe to be discharged at this time. After interview pt asked PSA for soup, while eating soup psa witnessed pt begin to talk to herself continously about food in her body and seemed to be yelling at herself. Thought disorganized but all seem to surround food. My notes:from today Patient climbed into corner of my office then crouched on floor beside my desk hen took things off my desk and smelled then and opened them. She states she has been here a couple times in the last 10 years. While being interviewed. She seems to have a great deal of thought blocking, combined with an enormous talk activities. She states that "I left [employer] on August 17. She states, "I had a grand mal seizure on the floor. She states she asked the seo executive if she could leave and does not want to go back. It should be noted that patient has been taking an MAO inhibitor, Trancypromine, and we must determine when her last dose was. Yesterday patient became agitated and combative in afternoon. PRNs were given and patient was monitored and slept through the night. Today she is sedated and drowsy. I added Depakote to her regimen and changed from Seroquel at night to Zyprexa to treat what is clearly a manic episode possibly made worse by use of MAOI. VITAL SIGNS: See below. NEW TEST RESULTS: None. CURRENT MEDICATIONS: See below. MENTAL STATUS EXAMINATION: Patient is a 29-year old female, who is. Presently sedated. Speech: Is slurred. Language skills are. No gross disturbance. Thought processes including: Hard to determine today. Thought content:. As above. Abstract reasoning, and computation:, Hard to determine today. Description of associations: Has some loose association. Description of abnormal or psychotic thoughts:. Yesterday, certainly had loose association and tangential thinking. Judgment:, Poor. Insight:, Poor. Orientation: 3. Recent and remote memory:, Cannot yet be determined. Attention span and concentration:, Poor. Language:. No gross disturbance. Fund of knowledge: Reasonable. Mood: Euthymic. Affect:. Drowsy but pleasant. DIAGNOSES: 1.. Bipolar disorder. 2., Eating disorder by history 3. None ASSESSMENT: As above MANAGEMENT PLAN:. Plan to treat patient's ammy and then look at proper follow- up. TIME SPENT: 25 minutes. Vital Signs Vital Signs Date Time Temp Pulse Resp B/P (MAP) Pulse Ox O2 Delivery O2 Flow Rate FiO2 08/19/20 15:15 96.8 60 18 136/76 100 Room Air Current Medications Current Medications Medications (Trade) Dose Ordered Sig/Lynn Route PRN Reason Start Time Stop Time Status Last Admin Dose Admin Acetaminophen (Tylenol Tab) 650 mg Q6HP PRN PO HEADACHE or DISCOMFORT 08/19/20 02:45 08/19/20 11:43 Al Hydrox/Mg Hydrox/Simethicone (Mylanta) 30 ml Q4HP PRN PO HEARTBURN/INDIGESTION 08/19/20 02:45 Diphenhydramine HCl (Benadryl) 50 mg STAT STAT IM 08/19/20 14:12 08/19/20 14:15 DC 08/19/20 14:25 Divalproex Sodium (Depakote) 250 mg BID PO 08/20/20 21:00 UNV Fluticasone Propionate (Flonase 0.05% Nasal [place]) 1 spray DAILY PRN NARES CONGESTION 08/19/20 09:45 Haloperidol (Haldol) 10 mg STAT STAT IM 08/19/20 14:12 08/19/20 14:15 DC 08/19/20 14:25 Home Med (Med Rec Complete!) ASDIRECTED XX 08/19/20 09:00 08/19/20 09:03 DC Lamotrigine (LaMICtal) 300 mg DAILY PO 08/19/20 09:00 08/20/20 10:36 Lorazepam (Ativan) 2 mg STAT STAT IM 08/19/20 14:12 08/19/20 14:15 DC 08/19/20 14:25 Magnesium Hydroxide (Milk Of Magnesia) 30 ml DAILYPRN PRN PO CONSTIPATION 08/19/20 02:45 Olanzapine (ZyPREXA) 10 mg QHS PO 08/20/20 21:00 UNV Omeprazole (PriLOSEC) 20 mg DAILY PO 08/19/20 09:00 08/20/20 10:35 Quetiapine Fumarate (SEROquel) 100 mg BID@0900,1400 PO 08/20/20 09:00 08/20/20 10:36 Quetiapine Fumarate (SEROquel) 100 mg STAT STAT PO 08/19/20 11:43 08/19/20 11:49 DC Quetiapine Fumarate (SEROquel) 200 mg QHS PO 08/19/20 21:00 08/19/20 12:03 DC Quetiapine Fumarate (SEROquel) 200 mg QHS PO 08/19/20 21:00 08/20/20 11:57 DC 08/19/20 20:38 Trazodone HCl (Desyrel) 50 mg QHSP PRN PO INSOMNIA 08/19/20 02:45 Allergies Coded Allergies: hydrocodone (Verified Allergy, Unknown, 05/01/19) lisdexamfetamine (Verified Adverse Reaction, Unknown, hallucinations, 05/01/19) trazodone (Verified Adverse Reaction, Unknown, "numbness", 05/01/19) PUNEET AVINA MD Aug 20, 2020 12:13
[2020-08-20 14:41] VITALS: BP 115/76
[2020-08-20] MEDS: OLANZapine 10 MG TAB PO SCH (21:00)
[2020-08-21 06:37] VITALS: BP 105/61
[2020-08-21] MEDS ORDERED: lamoTRIgine 100MG TAB PO SCH (09:00)
[2020-08-21] MEDS: QUEtiapine FUMARATE 100 MG TAB PO SCH (09:00)
[2020-08-21] MEDS ORDERED: DIVALPROEX 250 MG TAB PO SCH (09:00)
[2020-08-21] MEDS: OMEPRAZOLE 20 MG CAP PO SCH (09:14)
--- NOTE | 2020-08-21 09:56 | CR ---
CONSULTATION DATE: 08/19/2020 CHIEF COMPLAINT: Depression. HISTORY OF PRESENT ILLNESS: A 29-year-old female with a history of bulimia, anorexia, bipolar disorder, depression, ammy, Lyme disease, seizure disorder in 2016, gastroesophageal reflux disease, kyphoplasty, L1 to T12 fusion in 2009, removal of hardware in 2010, admitted to the inpatient mental health unit for severe depression with significant agitation, requiring sedation. The patient had been given a combination of Ativan, Haldol and diphenhydramine this morning but says that she has not had any other medical issues for the past few days and denied any chest pain, pressure, tightness, shortness of breath, lightheadedness, dizziness, fevers, chills, changes in weight, nausea, vomiting, diarrhea, abdominal pain, dysuria, urgency, frequency, flank pain, fever chills, polyphagia, polydipsia, bilateral upper and lower extremity weakness, weight loss, weight gain, changes in bowel habits, changes in weight. The hospitalist was asked to do a history and physical in the setting of psychiatric admission with no acute medical complaints. PAST MEDICAL HISTORY: 1. Bulimia, anorexia. 2. Bipolar disorder, depression, ammy. 3. Lyme disease, seizure disorder, 2017. 4. Gastroesophageal reflux disease. PAST SURGICAL HISTORY: 1. Kyphoplasty, L1-T12 fusion, 2009. 2. Removal of hardware, 2010. ALLERGIES: HYDROCODONE, YELLOW DYE, SCS, LISDEXAMFETAMINE, RED DYE, TRAZODONE, BRILLIANT BLUE. HOME MEDICATIONS: 1. Seroquel 100 mg b.i.d. 2. Seroquel 200 mg q.h.s. 3. Flonase one spray daily as needed. 4. Prilosec 20 daily. 5. Lamictal 300 daily. 6. Desyrel 50 mg q.h.s. 7. Tylenol 650 q.6 as needed. 8. Milk of Mag 30 mL as needed. 9. Mylanta 30 mL q.4 as needed. 10. The patient was recently given Haldol, Benadryl and Ativan due to severe agitation. SOCIAL HISTORY: Unemployed, no alcohol, recreational drug use or cigarette use. FAMILY HISTORY: Mother with hypertension. REVIEW OF SYSTEMS: Per HPI, 12-point system otherwise negative. PHYSICAL EXAMINATION: VITAL SIGNS: Temperature 96.8, pulse 60, respiratory rate 18, blood pressure 136/70, 100% on room air. GENERAL: The patient is lethargic status post Haldol, Benadryl and Ativan. She is responsive. NEURO: Face is symmetric. Tongue is midline. Follows commands. LUNGS: Clear to auscultation, no wheezing, rales or rhonchi. HEART: S1, S2, sinus rhythm. No murmurs, rubs or gallops. ABDOMEN: Soft, nontender and nondistended. Positive bowel sounds. EXTREMITIES: No cyanosis, clubbing or pitting edema. LABORATORY DATA: 08/18 white count 7.7, hemoglobin 12, hematocrit 36, platelet count 276. Sodium 136, potassium 4.4, chloride 104, bicarb 28, BUN 9, creatinine 1.16, glucose of 81, calcium 9.6, T bili 0.7, direct bili 0.l2. AST 11, ALT 16, alk phos 59, albumin 4.9. Albumin/globulin ratio 1.4. TSH 4.17. Negative HCG. ASSESSMENT AND PLAN: This is a 29-year-old female admitted to the inpatient mental health unit on 08/19/2020 due to severe depression, was given Haldol, Benadryl and Ativan today due to severe agitation. The patient has a known history of reflux, bulimia, anorexia, bipolar, depression, ammy, Lyme disease, seizure disorder, kyphoplasty and removal of hardware in 2010. CURRENT ISSUES: 1. Severe depression with agitation managed by her psychiatrist, recently received Haldol, Benadryl and Ativan, monitor for QT prolongation with Haldol and Seroquel. 2. History of seizure disorder, 2017. No recurrent seizure activity. 3. History of anorexia, bulimia, reflux disorder, resumed on home medications. 4. History of Lyme disease, no acute complaints. Hospitalist will sign off. Reconsult if new acute medical issues. Please call the [place] office. [facility]
[2020-08-21] MEDS ORDERED: lamoTRIgine 100MG TAB PO ONE (12:30)
--- NOTE | 2020-08-21 16:41 | MHIPNPDOC ---
[facility] Progress Note Progress Note DATE OF SERVICE: 08/21/20 HISTORY: 29-year-old female with bipolar disorder who was admitted in severely manic state. Today, however, she is tearful and labile, and tells me that the M AOI inhibitor was the only medication that helped her. She did not want to be placed on Depakote and Seroquel and was quite tearful. VITAL SIGNS: See below. NEW TEST RESULTS: . CURRENT MEDICATIONS: See below. MENTAL STATUS EXAMINATION: Patient is a 29-year old female, who is, tearful, labile. Speech: Is. No gross disturbance. Language skills are no gross disturbance. Thought processes including:, Tearfulness, "I don't know when I'm going to do." I shouldn't of left that program. I admitted terrible mistake. Thought content: As above. Abstract reasoning, and computation:. Intact. Description of associations: Loose associations. Description of abnormal or psychotic thoughts: No obvious psychotic thought. Today, but mood is exceptionally labile. Judgment:, Poor. Insight:, Poor. Orientation:. Apparently intact. Recent and remote memory:. Apparently intact. Attention span and concentration:. Poor. Language: No gross disturbance. Fund of knowledge: Unknown. Mood: Labile. Affect:, Upset. DIAGNOSES: 1., Bipolar disorder, mixed. ASSESSMENT: It will be important to find out if in fact this young lady needs an MAO inhibitor and then the decision will be how to control her ammy MANAGEMENT PLAN:. More information will be gathered. TIME SPENT: 30 minutes. Vital Signs Vital Signs Date Time Temp Pulse Resp B/P (MAP) Pulse Ox O2 Delivery O2 Flow Rate FiO2 08/21/20 06:37 97.5 84 16 105/61 (76) 100 Room Air Current Medications Current Medications Medications (Trade) Dose Ordered Sig/Lynn Route PRN Reason Start Time Stop Time Status Last Admin Dose Admin Acetaminophen (Tylenol Tab) 650 mg Q6HP PRN PO HEADACHE or DISCOMFORT 08/19/20 02:45 08/19/20 11:43 Al Hydrox/Mg Hydrox/Simethicone (Mylanta) 30 ml Q4HP PRN PO HEARTBURN/INDIGESTION 08/19/20 02:45 Diphenhydramine HCl (Benadryl) 50 mg STAT STAT IM 08/19/20 14:12 08/19/20 14:15 DC 08/19/20 14:25 Divalproex Sodium (Depakote) 250 mg BID PO 08/21/20 09:00 08/21/20 11:58 DC Fluticasone Propionate (Flonase 0.05% Nasal [place]) 1 spray DAILY PRN NARES CONGESTION 08/19/20 09:45 Haloperidol (Haldol) 10 mg STAT STAT IM 08/19/20 14:12 08/19/20 14:15 DC 08/19/20 14:25 Home Med (Med Rec Complete!) ASDIRECTED XX 08/19/20 09:00 08/19/20 09:03 DC Lamotrigine (LaMICtal) 100 mg DAILY PO 08/21/20 09:00 08/21/20 11:58 DC 08/21/20 09:14 Lamotrigine (LaMICtal) 300 mg DAILY PO 08/19/20 09:00 08/20/20 12:58 DC 08/20/20 10:36 Lamotrigine (LaMICtal) 300 mg DAILY PO 08/22/20 09:00 Lorazepam (Ativan) 2 mg STAT STAT IM 08/19/20 14:12 08/19/20 14:15 DC 08/19/20 14:25 Magnesium Hydroxide (Milk Of Magnesia) 30 ml DAILYPRN PRN PO CONSTIPATION 08/19/20 02:45 Olanzapine (ZyPREXA) 10 mg QHS PO 08/20/20 21:00 Omeprazole (PriLOSEC) 20 mg DAILY PO 08/19/20 09:00 08/21/20 09:14 Quetiapine Fumarate (SEROquel) 100 mg BID@0900,1400 PO 08/20/20 09:00 08/21/20 14:12 DC 08/20/20 15:23 Quetiapine Fumarate (SEROquel) 100 mg STAT STAT PO 08/19/20 11:43 08/19/20 11:49 DC Quetiapine Fumarate (SEROquel) 200 mg QHS PO 08/19/20 21:00 08/19/20 12:03 DC Quetiapine Fumarate (SEROquel) 200 mg QHS PO 08/19/20 21:00 08/20/20 11:57 DC 08/19/20 20:38 Trazodone HCl (Desyrel) 50 mg QHSP PRN PO INSOMNIA 08/19/20 02:45 Allergies Coded Allergies: hydrocodone (Verified Allergy, Unknown, 05/01/19) lisdexamfetamine (Verified Adverse Reaction, Unknown, hallucinations, 05/01/19) trazodone (Verified Adverse Reaction, Unknown, "numbness", 05/01/19) PUNEET AVINA MD Aug 21, 2020 16:41
[2020-08-21 18:35] VITALS: BP 113/85
[2020-08-21] MEDS: OLANZapine 10 MG TAB PO SCH (21:00)
[2020-08-22 06:32] VITALS: BP 138/80
[2020-08-22] MEDS: OMEPRAZOLE 20 MG CAP PO SCH (09:26)
[2020-08-22] MEDS: lamoTRIgine 100MG TAB PO SCH (09:26)
--- NOTE | 2020-08-22 15:19 | MHIPNPDOC ---
[facility] Progress Note Progress Note DATE OF SERVICE: 08/22/20 HISTORY: . HISTORY: 29-year-old female with bipolar disorder who was admitted in severely manic state. Today, however, she is tearful and labile, and tells me that the MAOI inhibitor was the only medication that helped her. She did not want to be placed on Depakote and Seroquel and was quite tearful. Apparently was placed on MAOI by her GP. I will contact him and try to get some idea of her past treatment for mood disorder and psychosis. VITAL SIGNS: See below. NEW TEST RESULTS: . CURRENT MEDICATIONS: See below. MENTAL STATUS EXAMINATION: Patient is a 29-year old female, who is, tearful, labile. Speech: Is. No gross disturbance. Language skills are no gross disturbance. Thought processes including:, Tearfulness, "I don't know when I'm going to do." I shouldn't of left that program. I admitted terrible mistake.Today smiling walking the halls reading to herself Thought content: As above. Abstract reasoning, and computation:. Intact. Description of associations: Loose associations. Description of abnormal or psychotic thoughts: No obvious psychotic thought. Today, but mood is exceptionally labile. Judgment:, Poor. Insight:, Poor. Orientation:. Apparently intact. Recent and remote memory:. Apparently intact. Attention span and concentration:. Poor. Language: No gross disturbance. Fund of knowledge: Unknown. Mood: Labile. Affect:, Upset. DIAGNOSES: 1., Bipolar disorder, mixed. ASSESSMENT: It will be important to find out if in fact this young lady needs an MAO inhibitor and then the decision will be how to control her ammy MANAGEMENT PLAN:. More information will be gathered. TIME SPENT: 30 minutes. Vital Signs Vital Signs Date Time Temp Pulse Resp B/P (MAP) Pulse Ox O2 Delivery O2 Flow Rate FiO2 08/22/20 06:32 99.3 88 16 138/80 (99) 98 Room Air Current Medications Current Medications Medications (Trade) Dose Ordered Sig/Lynn Route PRN Reason Start Time Stop Time Status Last Admin Dose Admin Acetaminophen (Tylenol Tab) 650 mg Q6HP PRN PO HEADACHE or DISCOMFORT 08/19/20 02:45 08/19/20 11:43 Al Hydrox/Mg Hydrox/Simethicone (Mylanta) 30 ml Q4HP PRN PO HEARTBURN/INDIGESTION 08/19/20 02:45 Diphenhydramine HCl (Benadryl) 50 mg STAT STAT IM 08/19/20 14:12 08/19/20 14:15 DC 08/19/20 14:25 Divalproex Sodium (Depakote) 250 mg BID PO 08/21/20 09:00 08/21/20 11:58 DC Fluticasone Propionate (Flonase 0.05% Nasal [place]) 1 spray DAILY PRN NARES CONGESTION 08/19/20 09:45 Haloperidol (Haldol) 10 mg STAT STAT IM 08/19/20 14:12 08/19/20 14:15 DC 08/19/20 14:25 Home Med (Med Rec Complete!) ASDIRECTED XX 08/19/20 09:00 08/19/20 09:03 DC Lamotrigine (LaMICtal) 100 mg DAILY PO 08/21/20 09:00 08/21/20 11:58 DC 08/21/20 09:14 Lamotrigine (LaMICtal) 300 mg DAILY PO 08/19/20 09:00 08/20/20 12:58 DC 08/20/20 10:36 Lamotrigine (LaMICtal) 300 mg DAILY PO 08/22/20 09:00 08/22/20 09:26 Lorazepam (Ativan) 2 mg STAT STAT IM 08/19/20 14:12 08/19/20 14:15 DC 08/19/20 14:25 Magnesium Hydroxide (Milk Of Magnesia) 30 ml DAILYPRN PRN PO CONSTIPATION 08/19/20 02:45 Olanzapine (ZyPREXA) 10 mg QHS PO 08/20/20 21:00 Omeprazole (PriLOSEC) 20 mg DAILY PO 08/19/20 09:00 08/22/20 09:26 Quetiapine Fumarate (SEROquel) 100 mg BID@0900,1400 PO 08/20/20 09:00 08/21/20 14:12 DC 08/20/20 15:23 Quetiapine Fumarate (SEROquel) 100 mg STAT STAT PO 08/19/20 11:43 08/19/20 11:49 DC Quetiapine Fumarate (SEROquel) 200 mg QHS PO 08/19/20 21:00 08/19/20 12:03 DC Quetiapine Fumarate (SEROquel) 200 mg QHS PO 08/19/20 21:00 08/20/20 11:57 DC 08/19/20 20:38 Trazodone HCl (Desyrel) 50 mg QHSP PRN PO INSOMNIA 08/19/20 02:45 Allergies Coded Allergies: hydrocodone (Verified Allergy, Unknown, 05/01/19) lisdexamfetamine (Verified Adverse Reaction, Unknown, hallucinations, 05/01/19) trazodone (Verified Adverse Reaction, Unknown, "numbness", 05/01/19) PUNEET AVINA MD Aug 22, 2020 15:19
[2020-08-22 17:04] VITALS: BP 122/85
[2020-08-22] MEDS: OLANZapine 10 MG TAB PO SCH (21:07)
[2020-08-23 06:40] VITALS: BP 108/66
[2020-08-23] MEDS: OMEPRAZOLE 20 MG CAP PO SCH (07:50)
[2020-08-23] MEDS: lamoTRIgine 100MG TAB PO SCH (07:51)
--- NOTE | 2020-08-23 09:30 | MHIPNPDOC ---
[facility] Progress Note Progress Note DATE OF SERVICE: 08/23/20 HISTORY: . HISTORY: 29-year-old female with bipolar disorder who was admitted in severely manic state. Today, however, she is tearful and labile, and tells me that the MAOI inhibitor was the only medication that helped her. She did not want to be placed on Depakote and Seroquel and was quite tearful. Apparently was placed on MAOI by her GP. I will contact him and try to get some idea of her past treatment for mood disorder and psychosis. Discussed today with Soraya and her previous treatment. She has been on Parnate MAO inhibitor since 2018. She states once in a while, it is taken off when she has manic episodes. She says the last time she was admitted to [facility]. It was taken off. She described her eating disorder program, which is a private program called [facility]. She states it was the right thing for her to do to quit [facility]. She states she has had no bulimic episodes in the last 5 months, but when she was at that program. She didn't eat enough. She described the program is extremely strict. Patient states that she has been working with Coretta Bauer at [facility] [employer], who is been managing her Parnate. Patient states while she was at her eating disorder program. She reduced the Parnate from 40 mg to 20 mg. I will contact Coretta Robledo discuss this patient's medical care VITAL SIGNS: See below. NEW TEST RESULTS: . CURRENT MEDICATIONS: See below. MENTAL STATUS EXAMINATION: Patient is a 29-year old female, who is, tearful, labile. Speech: Is. No gross disturbance. Language skills are no gross disturbance. Thought processes including:, Patient is calm and clear this morning and able to discuss in detail her treatment Thought content: As above. Abstract reasoning, and computation:. Intact. Description of associations: no Loose associations. Description of abnormal or psychotic thoughts: No obvious psychotic thought. Today, but mood is stable Judgment:, Poor. Insight:, Poor. Orientation:. Apparently intact. Recent and remote memory:. Apparently intact. Attention span and concentration:. Poor. Language: No gross disturbance. Fund of knowledge: Unknown. Mood: Labile. Affect:, Upset. DIAGNOSES: 1., Bipolar disorder, mixed. ASSESSMENT: It will be important to find out if in fact this young lady needs an MAO inhibitor and then the decision will be how to control her ammy. I will be calling her former assistant manager Coretta Bauer. MANAGEMENT PLAN:. More information will be gathered. TIME SPENT: 30 minutes. Vital Signs Vital Signs Date Time Temp Pulse Resp B/P (MAP) Pulse Ox O2 Delivery O2 Flow Rate FiO2 08/23/20 06:40 98.3 83 16 108/66 (80) 98 Room Air Current Medications Current Medications Medications (Trade) Dose Ordered Sig/Lynn Route PRN Reason Start Time Stop Time Status Last Admin Dose Admin Acetaminophen (Tylenol Tab) 650 mg Q6HP PRN PO HEADACHE or DISCOMFORT 08/19/20 02:45 08/19/20 11:43 Al Hydrox/Mg Hydrox/Simethicone (Mylanta) 30 ml Q4HP PRN PO HEARTBURN/INDIGESTION 08/19/20 02:45 Diphenhydramine HCl (Benadryl) 50 mg STAT STAT IM 08/19/20 14:12 08/19/20 14:15 DC 08/19/20 14:25 Divalproex Sodium (Depakote) 250 mg BID PO 08/21/20 09:00 08/21/20 11:58 DC Fluticasone Propionate (Flonase 0.05% Nasal [place]) 1 spray DAILY PRN NARES CONGESTION 08/19/20 09:45 Haloperidol (Haldol) 10 mg STAT STAT IM 08/19/20 14:12 08/19/20 14:15 DC 08/19/20 14:25 Home Med (Med Rec Complete!) ASDIRECTED XX 08/19/20 09:00 08/19/20 09:03 DC Lamotrigine (LaMICtal) 100 mg DAILY PO 08/21/20 09:00 08/21/20 11:58 DC 08/21/20 09:14 Lamotrigine (LaMICtal) 300 mg DAILY PO 08/19/20 09:00 08/20/20 12:58 DC 08/20/20 10:36 Lamotrigine (LaMICtal) 300 mg DAILY PO 08/22/20 09:00 08/23/20 07:51 Lorazepam (Ativan) 2 mg STAT STAT IM 08/19/20 14:12 08/19/20 14:15 DC 08/19/20 14:25 Magnesium Hydroxide (Milk Of Magnesia) 30 ml DAILYPRN PRN PO CONSTIPATION 08/19/20 02:45 Olanzapine (ZyPREXA) 10 mg QHS PO 08/20/20 21:00 08/22/20 21:07 Omeprazole (PriLOSEC) 20 mg DAILY PO 08/19/20 09:00 08/23/20 07:50 Quetiapine Fumarate (SEROquel) 100 mg BID@0900,1400 PO 08/20/20 09:00 08/21/20 14:12 DC 08/20/20 15:23 Quetiapine Fumarate (SEROquel) 100 mg STAT STAT PO 08/19/20 11:43 08/19/20 11:49 DC Quetiapine Fumarate (SEROquel) 200 mg QHS PO 08/19/20 21:00 08/19/20 12:03 DC Quetiapine Fumarate (SEROquel) 200 mg QHS PO 08/19/20 21:00 08/20/20 11:57 DC 08/19/20 20:38 Trazodone HCl (Desyrel) 50 mg QHSP PRN PO INSOMNIA 08/19/20 02:45 Allergies Coded Allergies: hydrocodone (Verified Allergy, Unknown, 05/01/19) lisdexamfetamine (Verified Adverse Reaction, Unknown, hallucinations, 05/01/19) trazodone (Verified Adverse Reaction, Unknown, "numbness", 05/01/19) PUNEET AVINA MD Aug 23, 2020 09:30
[2020-08-23 17:40] VITALS: BP 110/70
[2020-08-23] MEDS: OLANZapine 10 MG TAB PO SCH (21:00)
[2020-08-24 06:57] VITALS: BP 129/86
[2020-08-24] MEDS: OMEPRAZOLE 20 MG CAP PO SCH (09:13)
[2020-08-24] MEDS: lamoTRIgine 100MG TAB PO SCH (09:14)
--- NOTE | 2020-08-24 09:19 | MHIPNPDOC ---
[facility] Progress Note Progress Note DATE OF SERVICE: 08/24/20 Pt states she has been on Parnate MAO inhibitor since 2018. She described her eating disorder program, which is a private program called [facility]. She states it was the right thing for her to do to quit [facility]. She states she has had no bulimic episodes in the last 5 months, but when she was at that program. She didn't eat enough. She described the program is extremely strict. Patient states that she has been working with Coretta Menard at [employer], who is been managing her Parnate. Patient states while she was at her eating disorder program. She reduced the Parnate from 40 mg to 20 mg. I will contact Coretta Robledo discuss this patient's medical care. Patient continues stable on exam. I have contacted [employer] and Coretta Martini should be calling me today regarding pt. medication history. I will discuss with staff her future plans since she will not be returning to that program. VITAL SIGNS: See below. NEW TEST RESULTS: . CURRENT MEDICATIONS: See below. MENTAL STATUS EXAMINATION: Patient is a 29-year old female, who is, tearful, labile. Speech: Is. No gross disturbance. Language skills are no gross disturbance. Thought processes including:, Patient is calm and clear this morning and able to discuss in detail her treatment Thought content: As above. Abstract reasoning, and computation:. Intact. Description of associations: no Loose associations. Description of abnormal or psychotic thoughts: No obvious psychotic thought. Today, but mood is stable Judgment:, Poor. Insight:, Poor. Orientation:. Apparently intact. Recent and remote memory:. Apparently intact. Attention span and concentration:. Poor. Language: No gross disturbance. Fund of knowledge: Unknown. Mood:Euthymic. Affect: Relaxed DIAGNOSES: 1., Bipolar disorder, mixed. ASSESSMENT: It will be important to find out if in fact this young lady needs an MAO inhibitor and then the decision will be how to control her ammy. I will be calling her former staffing operations manager Coretta Menard. MANAGEMENT PLAN:. More information will be gathered. TIME SPENT: 30 minutes. Vital Signs Vital Signs Date Time Temp Pulse Resp B/P (MAP) Pulse Ox O2 Delivery O2 Flow Rate FiO2 08/24/20 06:57 96.9 77 16 129/86 (100) 98 Room Air Current Medications Current Medications Medications (Trade) Dose Ordered Sig/Lynn Route PRN Reason Start Time Stop Time Status Last Admin Dose Admin Acetaminophen (Tylenol Tab) 650 mg Q6HP PRN PO HEADACHE or DISCOMFORT 08/19/20 02:45 08/19/20 11:43 Al Hydrox/Mg Hydrox/Simethicone (Mylanta) 30 ml Q4HP PRN PO HEARTBURN/INDIGESTION 08/19/20 02:45 Diphenhydramine HCl (Benadryl) 50 mg STAT STAT IM 08/19/20 14:12 08/19/20 14:15 DC 08/19/20 14:25 Divalproex Sodium (Depakote) 250 mg BID PO 08/21/20 09:00 08/21/20 11:58 DC Fluticasone Propionate (Flonase 0.05% Nasal Flom) 1 spray DAILY PRN NARES CONGESTION 08/19/20 09:45 Haloperidol (Haldol) 10 mg STAT STAT IM 08/19/20 14:12 08/19/20 14:15 DC 08/19/20 14:25 Home Med (Med Rec Complete!) ASDIRECTED XX 08/19/20 09:00 08/19/20 09:03 DC Lamotrigine (LaMICtal) 100 mg DAILY PO 08/21/20 09:00 08/21/20 11:58 DC 08/21/20 09:14 Lamotrigine (LaMICtal) 300 mg DAILY PO 08/19/20 09:00 08/20/20 12:58 DC 08/20/20 10:36 Lamotrigine (LaMICtal) 300 mg DAILY PO 08/22/20 09:00 08/23/20 07:51 Lorazepam (Ativan) 2 mg STAT STAT IM 08/19/20 14:12 08/19/20 14:15 DC 08/19/20 14:25 Magnesium Hydroxide (Milk Of Magnesia) 30 ml DAILYPRN PRN PO CONSTIPATION 08/19/20 02:45 Olanzapine (ZyPREXA) 10 mg QHS PO 08/20/20 21:00 08/22/20 21:07 Omeprazole (PriLOSEC) 20 mg DAILY PO 08/19/20 09:00 08/23/20 07:50 Quetiapine Fumarate (SEROquel) 100 mg BID@0900,1400 PO 08/20/20 09:00 08/21/20 14:12 DC 08/20/20 15:23 Quetiapine Fumarate (SEROquel) 100 mg STAT STAT PO 08/19/20 11:43 08/19/20 11:49 DC Quetiapine Fumarate (SEROquel) 200 mg QHS PO 08/19/20 21:00 08/19/20 12:03 DC Quetiapine Fumarate (SEROquel) 200 mg QHS PO 08/19/20 21:00 08/20/20 11:57 DC 08/19/20 20:38 Trazodone HCl (Desyrel) 50 mg QHSP PRN PO INSOMNIA 08/19/20 02:45 Allergies Coded Allergies: hydrocodone (Verified Allergy, Unknown, 05/01/19) lisdexamfetamine (Verified Adverse Reaction, Unknown, hallucinations, 05/01/19) trazodone (Verified Adverse Reaction, Unknown, "numbness", 05/01/19) PUNEET AVINA MD Aug 24, 2020 09:19
[2020-08-24 18:32] VITALS: BP 116/79
[2020-08-24] MEDS: OLANZapine 10 MG TAB PO SCH (20:53)
[2020-08-25] MEDS ORDERED: OLAN10TA2 PO (06:12)
[2020-08-25 06:31] VITALS: BP 131/71
[2020-08-25] MEDS: OMEPRAZOLE 20 MG CAP PO SCH (08:52)
[2020-08-25] MEDS: lamoTRIgine 100MG TAB PO SCH (08:52)
--- NOTE | 2020-08-25 13:46 | MHDSPDOC ---
[facility] Discharge Summary Discharge Summary DATE OF ADMISSION: Aug 18, 2020 at 22:40 DATE OF DISCHARGE: Aug 25, 2020 at 11:35 DISCHARGE DIAGNOSES: 1. Bipolar disorder, mixed. REASON FOR ADMISSION: * Pt presented to ED after reportedly seizing and fainting due to eating disorder. Pt was very guarded during interview with TW. Pt is very flat and depressed. pt reported that as it was happening she thought she was going to and she fe lt relieved. Pt said that then was the first time she said it out loud. Pt discussed how she has been at a [facility] named [place] for 5 months and just called her dad yesterday to come get her and she doesn't feel safe now. Pt reported that she is not comfortable discussing why right now all she can say is that this is the first time she has felt safe to eat or drink anything. Pt denies SI to this extent in the past. When asked about self-harm pt stated that she "feels like she does that all the time." Pt stated "I'm scared for my life" multiple times during interview process. Pt reported being Dx with Bipolar disorder. Pt denied AH/VH and reported she had only had HI thoughts in 2019 towards her dad during a manic state. Pt does not feel safe to be discharged at this time. After interview pt asked PSA for soup, while eating soup psa witnessed pt begin to talk to herself continously about food in her body and seemed to be yelling at herself. Thought disorganized but all seem to surround food. Patient climbed into corner of my office then crouched on floor beside my desk hen took things off my desk and smelled then and opened them. She states she has been here a couple times in the last 10 years. While being interviewed. She seems to have a great deal of thought blocking, combined with an enormous talk activities. She states that "I left [employer] on August 17. She states, "I had a grand mal seizure on the floor. She states she asked the branch retail executive if she could leave and does not want to go back. It should be noted that patient has been taking an MAO inhibitor, Trancypromine, and we must determine when her last dose was. CONSULTANTS INVOLVED: Consulted with [place] karyn would been taking care of her on an outpatient basis TREATMENT AND PROGRESS ON THE UNIT : Parnate was discontinued. Patient was seemed to improve rapidly and mood became stable. HOSPITAL COURSE: As above DISCHARGE ASSESSMENT:. Bipolar disorder, mixed, with history of eating disorder MENTAL STATUS EXAMINATION ON DISCHARGE: Patient is a 29-year old female, who is presently for the last 2 days and stable mood Speech is. No gross disturbance. Language skills are. No gross disturbance. Thought processes including:. No gross disturbance. Thought content:. No gross disturbance. Abstract reasoning, and computation: Able to abstract. Description of associations:. No loose association. Description of abnormal or psychotic thoughts:. No psychotic thought. Judgment: Improved. Insight: Good. Orientation to 3. Recent and remote memory: Intact. Attention span and concentration: Intact. Language:. No gross disturbance. Fund of knowledge: Full Mood: Good. Affect: Bright. MEDICATIONS ON DISCHARGE: -. Continue Lamictal for. Bipolar disorder. -. Hold on Parnate until seen an outpatient . PLAN/FOLLOWUP ARRANGEMENTS: [facility], and living at home. The amount of time spent in the coordination of care for this patient was approximately 35 minutes. ETOH/Disorder Med Rx ETOH/DRUG DISORDER RX: N/A Vital Signs/I&Os Vital Signs Date Time Temp Pulse Resp B/P (MAP) Pulse Ox O2 Delivery O2 Flow Rate FiO2 08/25/20 06:31 98.4 78 16 131/71 (91) 100 Room Air Medications Scheduled Ergocalciferol (Vitamin D2) (Vitamin D2) 50,000 Units Cap, 50,000 UNITS PO QWEEK, (Reported) Lamotrigine (Lamotrigine) 150 Mg Tablet, 300 MG PO DAILY, (Reported) Olanzapine (Olanzapine) 10 Mg Tablet, 10 MG PO QHS for bipolar, #10 Omeprazole (Omeprazole) 20 Mg Capsule.dr, 20 MG PO DAILY for ., (Reported) Scheduled PRN Fluticasone Propionate (Fluticasone Propionate) 16 Gm Hawkins.susp, 1 SPRAY NARES DAILY PRN for CONGESTION, (Reported) Allergies Coded Allergies: hydrocodone (Verified Allergy, Unknown, 05/01/19) lisdexamfetamine (Verified Adverse Reaction, Unknown, hallucinations, 05/01/19) trazodone (Verified Adverse Reaction, Unknown, "numbness", 05/01/19) PUNEET AVINA MD Aug 25, 2020 13:46
== END 2020-08-25 11:35 | disposition home or self-care (01) | DRG 885 ==
LOC: M ED 22:39 → M ED INP 22:40 → M PSY 08-19 05:57
PROVIDERS: ADMIT Psychiatry & Neurology Child & Adolescent Psychiatry; ATTEND Psychiatry & Neurology Child & Adolescent Psychiatry
DX: F31.60 Bipolar disorder, current episode mixed, unspecified (principal); F50.2 Bulimia nervosa; F50.00 Anorexia nervosa, unspecified; Z88.5 Allergy status to narcotic agent; Z88.8 Allergy status to other drugs, medicaments and biological substances; Z79.899 Other long term (current) drug therapy; G40.909 Epilepsy, unspecified, not intractable, without status epilepticus; K21.9 Gastro-esophageal reflux disease without esophagitis

== ENCOUNTER 2020-09-01 17:34 | Inpatient (IN) | payer MEDICARE ==
[~2020-09-01] VITALS: Ht 162.6 cm; Wt 53.9 kg
[2020-09-01 18:10] LABS: HEMATOCRIT 34.9 % (36.0-47.0); HEMOGLOBIN 11.1 g/dl (12.0-15.5); MEAN CORPUSCULAR HEMOGLOBIN 30.7 pg (27.0-33.0); MEAN CORPUSCULAR HGB CONC 31.8 g/dl (32.0-36.5); MEAN CORPUSCULAR VOLUME 96.4 fl (80.0-96.0); PLATELET COUNT, AUTOMATED 393 10^3/uL (150-450); RED BLOOD COUNT 3.62 10^6/uL (4.00-5.40); WHITE BLOOD COUNT 11.9 10^3/uL (4.0-10.0)
[2020-09-01 18:38] LABS: AMPHETAMINES LEVEL URINE NEGATIVE (NEGATIVE); BARBITURATES URINE NEGATIVE (NEGATIVE); BENZODIAZEPINES URINE NEGATIVE (NEGATIVE); CANNABINOIDS URINE NEGATIVE (NEGATIVE); COCAINE METABOLITE URINE NEGATIVE (NEGATIVE); METHADONE URINE NEGATIVE (NEGATIVE); OPIATES URINE NEGATIVE (NEGATIVE); PHENCYCLIDINE URINE NEGATIVE (NEGATIVE)
[2020-09-01] MEDS ORDERED: LORazepam 1 MG TAB PO ONE (18:45)
[2020-09-01 18:53] LABS: ACETAMINOPHEN LEVEL < 2.0 UG/ML (10.0-30.0); ALBUMIN 4.7 GM/DL (3.2-5.2); ALT/SGPT 31 U/L (12-78); BILIRUBIN,DIRECT 0.1 MG/DL (0.0-0.2); BILIRUBIN,TOTAL 0.2 MG/DL (0.2-1.0); BLOOD UREA NITROGEN 10 MG/DL (7-18); CALCIUM LEVEL 9.8 MG/DL (8.5-10.1); CARBON DIOXIDE LEVEL 25 MEQ/L (21-32); CHLORIDE LEVEL 103 MEQ/L (98-107); CREATININE FOR GFR 0.72 MG/DL (0.55-1.30); ETHYL ALCOHOL (ETHANOL) < 0.003 % (0.000-0.010); GLOMERULAR FILTRATION RATE > 60.0 (>60); GLUCOSE, FASTING 70 MG/DL (70-100); HCG, SERUM QUANTITATIVE < 1.0 MIU/ML; POTASSIUM SERUM 3.9 MEQ/L (3.5-5.1); SALICYLATE LEVEL < 1.7 MG/DL (5.0-30.0); SODIUM LEVEL 136 MEQ/L (136-145); THYROID STIMULATING HORMONE 0.925 uIU/ML (0.358-3.740); TOTAL PROTEIN 8.6 GM/DL (6.4-8.2)
[2020-09-01] MEDS ORDERED: OLANZapine 10 MG TAB PO ONE (19:40)
[2020-09-01] MEDS ORDERED: OLAN10TA2 PO (19:41)
[2020-09-01 20:54] LABS: RSV AMPLIFICATION NEGATIVE (NEGATIVE)
[2020-09-01] MEDS ORDERED: traZODone 50 MG TAB PO PRN (21:00)
[2020-09-02] VITALS (7 sets, daily range): BP systolic 112–122; BP diastolic 68–82
[2020-09-02] MEDS ORDERED: LORazepam 2 MG/ML VIAL IM STA (07:44)
[2020-09-02] MEDS ORDERED: HALOPERIDOL 5MG/ML VIAL (J1630 PER 1) IM STA (07:44)
[2020-09-02] MEDS: ACETAMINOPHEN TAB 650MG DOSE (2X325MG) PO PRN (07:55)
[2020-09-02] MEDS ORDERED: MORPHINE 10 MG/ML 1ML VIAL (J2270) IM ONE (08:25)
[2020-09-02] MEDS ORDERED: KETOROLAC 60MG 2ML VIAL IM ONE (09:00)
[2020-09-02] MEDS: NICOTINE 14 MG/24 HR TRANSDERMAL TD SCH (09:00)
--- NOTE | 2020-09-02 10:29 | HPEPDOC ---
[facility] Medical History & Physical Date of Admission Sep 01, 2020 Date of Service: Sep 02, 2020 History and Physical HOSPITALIST HISTORY AND PHYSICAL EXAMINATION DICTATED JOB #[id number]. 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 HOSPITALIST SIGNING OFF. PLS CALL [facility] TO RE-CONSULT IF NEW ACUTE MEDICAL ISSUES ARISE. Vital Signs Vital Signs Date Time Temp Pulse Resp B/P (MAP) Pulse Ox O2 Delivery O2 Flow Rate FiO2 09/02/20 09:15 98.3 89 14 112/68 100 Room Air Laboratory Data Labs 24H Laboratory Tests 2 09/01/20 18:00: Nucleated Red Blood Cells % (auto) 0.0, Anion Gap 8, Glomerular Filtration Rate > 60.0, Calcium Level 9.8, Total Bilirubin 0.2, Direct Bilirubin 0.1, Aspartate Amino Transf (AST/SGOT) 30, Alanine Aminotransferase (ALT/SGPT) 31, Alkaline Phosphatase 82, Total Protein 8.6H, Albumin 4.7, Albumin/Globulin Ratio 1.2, Thyroid Stimulating Hormone (TSH) 0.925, Human Chorionic Gonadotropin, Quant < 1.0, Salicylates Level < 1.7L, Urine Opiates Screen NEGATIVE, Urine Methadone Screen NEGATIVE, Acetaminophen Level < 2.0L, Urine Barbiturates Screen NEGATIVE, Urine Phencyclidine Screen NEGATIVE, Urine Amphetamines Screen NEGATIVE, Urine Benzodiazepines Screen NEGATIVE, Urine Cocaine Metabolite Screen NEGATIVE, Urine Cannabinoids Screen NEGATIVE, Ethyl Alcohol Level < 0.003 09/01/20 20:07: Coronavirus (COVID-19)(PCR) NEGATIVE, Influenza Type A (RT-PCR) NEGATIVE, Influenza Type B (RT-PCR) NEGATIVE, Respiratory Syncytial Virus (PCR) NEGATIVE CBC/BMP Laboratory Tests 09/01/20 18:00 Home Medications Scheduled Ergocalciferol (Vitamin D2) (Vitamin D2) 50,000 Units Cap, 50,000 UNITS PO QWEEK Lamotrigine (Lamotrigine) 150 Mg Tablet, 300 MG PO DAILY Olanzapine (Olanzapine) 10 Mg Tablet, 10 MG PO QHS Omeprazole (Omeprazole) 20 Mg Capsule.dr, 20 MG PO DAILY for . Scheduled PRN Fluticasone Propionate (Fluticasone Propionate) 16 Gm Badger.susp, 1 SPRAY NARES DAILY PRN for CONGESTION Allergies Coded Allergies: hydrocodone (Verified Allergy, Unknown, 05/01/19) lisdexamfetamine (Verified Adverse Reaction, Unknown, hallucinations, 05/01/19) trazodone (Verified Adverse Reaction, Unknown, "numbness", 05/01/19) A-FIB/CHADSVASC A-FIB History Current/History of A-Fib/PAF?: No Current PO Anticoag Therapy: No Age/Risk Factor Scoring CHADSVASC: CHADSVASC Response (Comments) Value Age Risk Factor Age < 65 years old 0 Gender Risk Factor Female 1 Hx of CHF No 0 Hx of HTN No 0 Hx of Stroke/TIA/or VTE No 0 Hx of Diabetes No 0 Hx of Vascular Disease No 0 Total 1 Treatment Treatment ordered: NONE LAKESHA ADAM MD Sep 02, 2020 10:29
--- NOTE | 2020-09-02 11:11 | HPE ---
HISTORY AND PHYSICAL DATE OF ADMISSION: 09/01/2020 CHIEF COMPLAINT: Agitation, katie. HISTORY OF PRESENT ILLNESS: A 29-year-old female with history of bulimia and anorexia, bipolar disorder with depression and katie, Lyme disease, seizure disorder, reflux disease, admitted to the inpatient mental health unit due to depression. Patient was extremely agitated this morning. Code 25 was called and she was sedated with 4-point restraint as well as Haldol and Ativan per psychiatrist. Patient complains of chronic back pain. No nausea, vomiting, dysuria, urgency, frequency, fever, chills, shortness of breath, palpitations, changes in vision, appetite, bowel habits, tinnitus, sore throat, ear discharge, blurred vision, polyphagia, polydipsia, bilateral upper and lower extremity weakness. She complains of pain everywhere, especially some bruising on the hands that she has had prior to admission. PAST MEDICAL HISTORY: 1. Bulimia. 2. Anorexia. 3. Bipolar disorder. 4. Depression. 5. Katie. 6. Lyme disease. 7. Seizure disorder. 8. Reflux. PAST SURGICAL HISTORY: 1. Kyphoplasty T12-L1 fusion 2009. 2. Removal of hardware 2010. ALLERGIES: HYDRODOCONE, LATEX, AMPHETAMINE, TRAZODONE, RED DYE, BRILLIANT BLUE. HOSPITAL MEDICATIONS: - Zyprexa - Tylenol - Milk of Magnesia - Mylanta - trazodone has been discontinued due to prior allergy SOCIAL HISTORY: Unemployed. No alcohol or recreational drug use or tobacco abuse. FAMILY HISTORY: Mother with hypertension. REVIEW OF SYSTEMS: Per history of present illness (HPI). A 10 point system otherwise negative. PHYSICAL EXAMINATION: VITAL SIGNS: Temperature 98.3, pulse 89, respiratory rate 14, blood pressure 112/68, 100% on room air. Patient is on a 4-point restraint. GENERAL: She is awake, alert, oriented times three, answers questions appropriately. No distress, cyanosis or use of respiratory accessory muscles. HEENT: Extraocular muscles are intact. Normocephalic, atraumatic. Patient has no stridor, icterus, jaundice. No cervical lymphadenopathy or thyromegaly. LUNGS: Clear to auscultation. No wheezing, rales or rhonchi. HEART: S1, S2. Sinus rhythm. No murmurs, rubs or gallops. ABDOMEN: Soft, nontender, nondistended. Positive bowel sounds. EXTREMITIES: No clubbing, cyanosis or pitting edema. LABORATORY DATA: 09/01/2020: Complete blood count, metabolic panel, liver function tests, quantitative HCG negative. TSH is normal, reviewed. ASSESSMENT AND PLAN: A 29-year-old female with katie, depression, bipolar disorder, seizure disorder, anorexia, bulimia, reflux, Lyme disease admitted to inpatient mental health unit currently with complaints of back pain. IMPRESSION: 1. Chronic back pain. Patient is at risk of aspiration while she is on 4-point restraint. I have offered to give her intramuscular medication such as Toradol and morphine, which she has refused today. Deferred to psychiatrist when the 4-point restraint can be discontinued. 2. Agitation, katie, bipolar disorder, depression. Managed by psychiatrist. 3. History of anorexia, bulimia, reflux disorder. Resume home medications. 4. Chronic insomnia. Trazodone has been discontinued due to reported allergy. Hospitalist is signing off. Please consult if needed for acute medical issues. IRAMD
[2020-09-03 06:28] VITALS: BP 111/70
[2020-09-03] MEDS ORDERED: LORazepam 2 MG/ML VIAL IM STA (07:41)
[2020-09-03] MEDS ORDERED: HALOPERIDOL 5MG/ML VIAL (J1630 PER 1) IM STA (07:41)
[2020-09-03] MEDS: NICOTINE 14 MG/24 HR TRANSDERMAL TD SCH ×2 (07:43→10:08)
[2020-09-03] MEDS: ACETAMINOPHEN TAB 650MG DOSE (2X325MG) PO PRN (07:43)
[2020-09-03 08:00] VITALS: BP 130/88
[2020-09-03 08:15] VITALS: BP 128/86
--- NOTE | 2020-09-03 09:11 | MHHPE ---
[facility] HISTORY AND PHYSICAL DATE OF ADMISSION: 09/01/2020 This is a video assessment, we are doing this because of the pandemic, I am unable to see her [id number] at the hospital, as I am not well enough to go to the hospital. CHIEF COMPLAINT: Feels upset. SUBJECTIVE: Is seen for initial visit, she is seen in the presence of staff, she was at [facility], at the inpatient psychiatry unit just recently, discharged within the last week or so, was seen by Dr. Barnhart, please refer to his discharge summary for details related to the circumstances of the admission, as well as hospital course and discharge. She was discharged on Lamictal 300 mg daily, Zyprexa 10 mg at night, omeprazole 20 mg daily, vitamin D2 50,000 units every week. Unclear whether she has been taking them, though she says she does take them regularly. She came to the hospital, after an argument with her father, father had called the police, ambulance was there as well, and according to the emergency room (ER) reports she did not feel safe being brought by police. She had indicated that she and her father were arguing, she did not go into what the argument was about, and in the ER, per the report, was thought to have very disorganized thoughts, was tangential, with disorganized thinking, was agitated, responding to internal stimuli as well, and was not thought to be safe to be discharged. The report also suggests the father does not think that the last stay here, for a week, was long enough, she had come in after she had lost considerably weight, about 30 pounds, in the last 5 months or so, was at a retreat of sorts, details in the previous assessment by Dr. Barnhart. PAST PSYCHIATRIC HISTORY: Please see the previous summaries. Has a history of bipolar disorder. PAST MEDICAL HISTORY: This includes a history of Lyme disease, seizure disorder, and reflux. ALLERGIES: HYDROCODONE, LATEX, AMPHETAMINE, TRAZODONE, RED DYE, BLUE DYE. SOCIAL HISTORY: Lives with her parents. Please refer to previous summaries for the details. MENTAL STATUS EXAMINATION: Fairly guarded, answers questions briefly, more agitation currently, no psychomotor retardation. Affect restricted, fair range, mildly irritated as well. Denies suicidal thoughts or intents at present. No homicidal ideas or intents at present. Does not appear internally preoccupied. No delusional ideations elicited at present. Cognition is grossly intact. Judgment and insight remain poor. ASSESSMENT: Bipolar disorder, current episode possibly manic versus mixed. Unspecified eating disorder. Has been agitated, psychotic, poor judgment. PLAN: She is admitted to the inpatient psychiatry unit and we will place her on relevant precautions, obtain collateral information, resume the medicines that she has been on, and anti-agitation medications. We will involve her in individual group and milieu therapy, and encourage her to participate in activities as tolerated. She will be discharged with followup once she is stable. Anticipate a 7 day stay, at least. Further recommendations will be made depending on the clinical picture.
[2020-09-03] MEDS: OMEPRAZOLE 20 MG CAP PO SCH (10:09)
[2020-09-03] MEDS: lamoTRIgine 100MG TAB PO SCH (10:09)
[2020-09-03 16:34] VITALS: BP 116/68
[2020-09-03] MEDS: OLANZapine 10 MG TAB PO SCH (21:00)
[2020-09-04 06:00] VITALS: BP 112/66
[2020-09-04] MEDS: NICOTINE 14 MG/24 HR TRANSDERMAL TD SCH (08:03)
[2020-09-04] MEDS: OMEPRAZOLE 20 MG CAP PO SCH (08:03)
[2020-09-04] MEDS: lamoTRIgine 100MG TAB PO SCH (08:03)
[2020-09-04] MEDS ORDERED: IBUPROFEN 600MG TAB PO PRN (10:45)
[2020-09-04] MEDS: IBUPROFEN 400MG TAB PO PRN ×2 (11:26→19:46)
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
[2020-09-04] MEDS: OLANZapine ORAL DISINTEGRATING TAB 5MG PO PRN (17:32)
[2020-09-04 18:59] VITALS: BP 135/64
[2020-09-04] MEDS: OLANZapine 10 MG TAB PO SCH (22:40)
[2020-09-04] MEDS: MAALOX 30 ML SUSP *UDC PO PRN (23:34)
[2020-09-05] MEDS: hydrOXYzine 50 MG TAB PO PRN (01:30)
[2020-09-05 07:13] VITALS: BP 157/82
[2020-09-05] MEDS: OLANZapine ORAL DISINTEGRATING TAB 5MG PO PRN ×2 (07:19→19:31)
[2020-09-05] MEDS: IBUPROFEN 400MG TAB PO PRN (07:19)
[2020-09-05] MEDS: lamoTRIgine 100MG TAB PO SCH (08:23)
[2020-09-05] MEDS: OMEPRAZOLE 20 MG CAP PO SCH (08:23)
[2020-09-05] MEDS: NICOTINE 14 MG/24 HR TRANSDERMAL TD SCH ×2 (08:24→09:19)
--- NOTE | 2020-09-05 09:02 | MHIPN ---
FORM[facility], [facility] PROGRESS NOTE DATE: 09/03/2020 VITAL SIGNS: Blood pressure 116/68, pulse 99, temperature 98.1. CHIEF COMPLAINT: Says feels better. SUBJECTIVE: Seen for followup. This is a video assessment. She is seen in the presence of staff. Says slept a bit better, and that she feels a bit better today. Says had spoken with family, and that she could see why there had been an argument but she did not go into details, and then says that she hung up with family. Appetite has been okay. Has required interventions this morning, she was quite agitated. MENTAL STATUS EXAMINATION: Neat, somewhat guarded, no agitation, no psychomotor retardation, answers questions briefly, logically. Affect is restricted in range. Denies any suicidal thoughts or intents. No homicidal ideas or intents. Currently no evidence of any psychosis, does not appear internally preoccupied. Cognition grossly intact. Judgment and insight remain compromised. ASSESSMENT: Bipolar disorder, current episode possibly mixed. Has been agitated, including this morning. Judgment and insight continue to impact her adversely. PLAN: Continue current care, previous medications have been resumed, I would suggest obtaining collateral information, and encouraging the patient to participate in activities as tolerated. She will see the assigned clinicians tomorrow, when further recommendations will be made. She requires further stabilization.
[2020-09-05] MEDS: MOM 30ML SUSPENSION UDC PO PRN (09:20)
[2020-09-05] MEDS ORDERED: LORazepam 1 MG TAB PO STA (09:28)
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
[2020-09-05 18:11] VITALS: BP 131/74
[2020-09-05] MEDS: LITHIUM CARBONATE 150 MG CAP PO SCH ×2 (21:00→22:16)
[2020-09-05] MEDS: OLANZapine 10 MG TAB PO SCH ×2 (21:00→22:16)
[2020-09-06 06:00] VITALS: BP 130/86
[2020-09-06] MEDS: OLANZapine ORAL DISINTEGRATING TAB 5MG PO PRN ×2 (07:44→13:44)
[2020-09-06] MEDS: NICOTINE 14 MG/24 HR TRANSDERMAL TD SCH (08:12)
[2020-09-06] MEDS: OMEPRAZOLE 20 MG CAP PO SCH (08:13)
[2020-09-06] MEDS: LITHIUM CARBONATE 150 MG CAP PO SCH ×2 (08:13→20:07)
[2020-09-06] MEDS: lamoTRIgine 100MG TAB PO SCH (08:13)
[2020-09-06] MEDS: hydrOXYzine 50 MG TAB PO PRN ×2 (09:46→17:53)
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
[2020-09-06] MEDS: FLUTICASONE PROP 0.05% NASAL SPRAY 16 GM (FLONASE) NARES PRN (17:53)
[2020-09-06 18:06] VITALS: BP 145/98
[2020-09-06] MEDS: OLANZapine 10 MG TAB PO SCH (20:07)
[2020-09-06] MEDS: MOM 30ML SUSPENSION UDC PO PRN (21:29)
[2020-09-07] MEDS: IBUPROFEN 400MG TAB PO PRN (06:14)
[2020-09-07 06:39] VITALS: BP 116/66
[2020-09-07] MEDS: lamoTRIgine 100MG TAB PO SCH (08:05)
[2020-09-07] MEDS: LITHIUM CARBONATE 150 MG CAP PO SCH ×2 (08:05→21:00)
[2020-09-07] MEDS: OMEPRAZOLE 20 MG CAP PO SCH (08:05)
[2020-09-07] MEDS: NICOTINE 14 MG/24 HR TRANSDERMAL TD SCH (08:07)
[2020-09-07] MEDS: OLANZapine ORAL DISINTEGRATING TAB 5MG PO PRN ×2 (08:40→16:55)
[2020-09-07] MEDS: hydrOXYzine 50 MG TAB PO PRN ×2 (08:40→16:55)
[2020-09-07 16:30] VITALS: BP 133/63
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
[2020-09-07] MEDS: MAALOX 30 ML SUSP *UDC PO PRN (17:05)
[2020-09-07] MEDS: OLANZapine 10 MG TAB PO SCH (21:00)
[2020-09-08] MEDS: IBUPROFEN 400MG TAB PO PRN ×3 (04:33→20:47)
[2020-09-08 06:45] VITALS: BP 134/62
[2020-09-08] MEDS: hydrOXYzine 50 MG TAB PO PRN ×2 (07:03→14:41)
[2020-09-08] MEDS: OLANZapine ORAL DISINTEGRATING TAB 5MG PO PRN ×2 (07:03→14:41)
[2020-09-08] MEDS: OMEPRAZOLE 20 MG CAP PO SCH (08:49)
[2020-09-08] MEDS: FLUTICASONE PROP 0.05% NASAL SPRAY 16 GM (FLONASE) NARES PRN (08:49)
[2020-09-08] MEDS: LITHIUM CARBONATE 150 MG CAP PO SCH (08:49)
[2020-09-08] MEDS: NICOTINE 14 MG/24 HR TRANSDERMAL TD SCH (08:50)
[2020-09-08] MEDS ORDERED: lamoTRIgine 100MG TAB PO SCH (09:00)
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
[2020-09-08] MEDS ORDERED: PILL CUTTER 1 EACH XX PRN (15:30)
[2020-09-08 19:56] VITALS: BP 137/86
[2020-09-08] MEDS: OLANZapine 10 MG TAB PO SCH (20:46)
[2020-09-08] MEDS: LITHIUM CARBONATE 300 MG CAP PO SCH (20:46)
[2020-09-09 07:46] VITALS: BP 174/87
[2020-09-09] MEDS: LITHIUM CARBONATE 300 MG CAP PO SCH ×2 (09:01→19:59)
[2020-09-09] MEDS: OMEPRAZOLE 20 MG CAP PO SCH (09:01)
[2020-09-09] MEDS: lamoTRIgine 100MG TAB PO SCH (09:02)
[2020-09-09] MEDS: FLUTICASONE PROP 0.05% NASAL SPRAY 16 GM (FLONASE) NARES PRN (09:02)
[2020-09-09] MEDS: NICOTINE 14 MG/24 HR TRANSDERMAL TD SCH (09:05)
[2020-09-09] MEDS: IBUPROFEN 400MG TAB PO PRN (11:20)
[2020-09-09] MEDS: OLANZapine ORAL DISINTEGRATING TAB 5MG PO PRN ×2 (14:05→21:06)
[2020-09-09] MEDS: hydrOXYzine 50 MG TAB PO PRN (14:05)
[2020-09-09 16:54] VITALS: BP 127/77
[2020-09-09] MEDS: MOM 30ML SUSPENSION UDC PO PRN (19:59)
[2020-09-09] MEDS: OLANZapine 10 MG TAB PO SCH (19:59)
[2020-09-10 06:00] VITALS: BP 123/58
[2020-09-10] MEDS: hydrOXYzine 50 MG TAB PO PRN (06:27)
[2020-09-10] MEDS: lamoTRIgine 100MG TAB PO SCH (09:06)
[2020-09-10] MEDS: LITHIUM CARBONATE 300 MG CAP PO SCH ×2 (09:06→21:06)
[2020-09-10] MEDS: OMEPRAZOLE 20 MG CAP PO SCH (09:06)
[2020-09-10] MEDS: NICOTINE 14 MG/24 HR TRANSDERMAL TD SCH (09:06)
[2020-09-10] MEDS: FLUTICASONE PROP 0.05% NASAL SPRAY 16 GM (FLONASE) NARES PRN (09:08)
[2020-09-10] MEDS: OLANZapine ORAL DISINTEGRATING TAB 5MG PO PRN (11:08)
[2020-09-10] MEDS: IBUPROFEN 400MG TAB PO PRN (17:22)
[2020-09-10] MEDS: OLANZapine 10 MG TAB PO SCH (21:05)
[2020-09-11 06:48] VITALS: BP 133/86
[2020-09-11] MEDS: FLUTICASONE PROP 0.05% NASAL SPRAY 16 GM (FLONASE) NARES PRN (08:49)
[2020-09-11] MEDS: OMEPRAZOLE 20 MG CAP PO SCH (08:50)
[2020-09-11] MEDS: LITHIUM CARBONATE 300 MG CAP PO SCH (08:50)
[2020-09-11] MEDS: NICOTINE 14 MG/24 HR TRANSDERMAL TD SCH (08:50)
[2020-09-11] MEDS: lamoTRIgine 100MG TAB PO SCH (08:51)
[2020-09-11] MEDS: IBUPROFEN 400MG TAB PO PRN (10:57)
[2020-09-11] MEDS ORDERED: LAMO100T80 PO (11:09)
[2020-09-11] MEDS ORDERED: OLAN10TA2 PO (11:09)
[2020-09-11] MEDS ORDERED: LITH300C PO (11:09)
[2020-09-11] MEDS ORDERED: OLAN5ZYD PO (11:09)
[2020-09-11] MEDS ORDERED: NICO14PA TD (11:09)
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
[2020-09-12] MEDS ORDERED: lamoTRIgine 100MG TAB PO SCH (09:00)
== END 2020-09-11 13:07 | disposition home or self-care (01) | DRG 885 ==
LOC: M ED 17:34 → M ED INP 17:35 → M PSY 23:59
PROVIDERS: ADMIT Psychiatry & Neurology Psychiatry; ATTEND Psychiatry & Neurology Psychiatry
DX: F31.2 Bipolar disorder, current episode manic severe with psychotic features (principal); F50.9 Eating disorder, unspecified; Z79.899 Other long term (current) drug therapy; Z88.5 Allergy status to narcotic agent; Z88.8 Allergy status to other drugs, medicaments and biological substances; G47.00 Insomnia, unspecified

== ENCOUNTER → 2020-09-01 | Outpatient (REF) | payer MEDICARE ==
[~2020-09-01] MED LIST changes: +OLAN10TA2 PO; +TRAN10TA PO; +[UNRECOGNIZED DRUG - REMARK]
[2020-09-05 02:06] LABS: CREATININE, URINE 30.2 mg/dL (20.0-300.0)
== END ==
LOC: M SFHCCLAY 11:48
PROVIDERS: ATTEND Family Medicine
DX: F31.70 Bipolar disorder, currently in remission, most recent episode unspecified (principal)

== ENCOUNTER 2020-10-02 16:45 | Inpatient (IN) | payer MEDICARE ==
[~2020-10-02] VITALS: Ht 162.6 cm; Wt 58.2 kg
[~2020-10-02 16:45] MED LIST changes: +NICO14PA TD; +OLAN5ZYD PO
[2020-10-02] MEDS ORDERED: OLANZapine INTRAMUSCULAR 10MG VIAL IM ONE (17:10)
[2020-10-02] MEDS ORDERED: LAMO150T3 PO (17:13)
[2020-10-02] MEDS ORDERED: TRAN10TA PO (17:13)
[2020-10-02 17:59] LABS: HEMATOCRIT 37.9 % (36.0-47.0); HEMOGLOBIN 12.4 g/dl (12.0-15.5); MEAN CORPUSCULAR HEMOGLOBIN 32.7 pg (27.0-33.0); MEAN CORPUSCULAR HGB CONC 32.7 g/dl (32.0-36.5); PLATELET COUNT, AUTOMATED 476 10^3/uL (150-450); RED BLOOD COUNT 3.79 10^6/uL (4.00-5.40); WHITE BLOOD COUNT 13.1 10^3/uL (4.0-10.0)
[2020-10-02 18:17] LABS: AMPHETAMINES LEVEL URINE NEGATIVE (NEGATIVE); BARBITURATES URINE NEGATIVE (NEGATIVE); BENZODIAZEPINES URINE NEGATIVE (NEGATIVE); CANNABINOIDS URINE NEGATIVE (NEGATIVE); COCAINE METABOLITE URINE NEGATIVE (NEGATIVE); METHADONE URINE NEGATIVE (NEGATIVE); OPIATES URINE NEGATIVE (NEGATIVE); PHENCYCLIDINE URINE NEGATIVE (NEGATIVE)
[2020-10-02 18:39] LABS: ACETAMINOPHEN LEVEL < 2.0 UG/ML (10.0-30.0); ALBUMIN 4.3 GM/DL (3.2-5.2); ALT/SGPT 29 U/L (12-78); BILIRUBIN,DIRECT < 0.1 MG/DL (0.0-0.2); BILIRUBIN,TOTAL 0.3 MG/DL (0.2-1.0); BLOOD UREA NITROGEN 13 MG/DL (7-18); CARBON DIOXIDE LEVEL 28 MEQ/L (21-32); CHLORIDE LEVEL 105 MEQ/L (98-107); CREATININE FOR GFR 0.74 MG/DL (0.55-1.30); ETHYL ALCOHOL (ETHANOL) < 0.003 % (0.000-0.010); GLOMERULAR FILTRATION RATE > 60.0 (>60); GLUCOSE, FASTING 86 MG/DL (70-100); LITHIUM LEVEL < 0.20 MEQ/L (0.60-1.20); POTASSIUM SERUM 3.9 MEQ/L (3.5-5.1); SALICYLATE LEVEL < 1.7 MG/DL (5.0-30.0); SODIUM LEVEL 137 MEQ/L (136-145); TOTAL PROTEIN 8.2 GM/DL (6.4-8.2)
[2020-10-02 19:09] LABS: HCG, SERUM QUALITATIVE NEGATIVE (NEGATIVE)
[2020-10-03] MEDS ORDERED: OLAN10TA2 PO (07:44)
[2020-10-03] MEDS ORDERED: LITH150C PO (07:44)
[2020-10-03] MEDS ORDERED: HYDR50TA70 PO (07:44)
[2020-10-03] MEDS ORDERED: MONT10TA10 PO (07:44)
[2020-10-03] MEDS: OMEPRAZOLE 20 MG CAP PO SCH (09:00)
[2020-10-03 10:45] LABS: RSV AMPLIFICATION NEGATIVE (NEGATIVE)
[2020-10-03] MEDS ORDERED: hydrOXYzine 50 MG TAB PO STA (12:58)
[2020-10-03] MEDS ORDERED: traZODone 50 MG TAB PO PRN (14:30)
[2020-10-03] MEDS ORDERED: ACETAMINOPHEN TAB 650MG DOSE (2X325MG) PO PRN (14:30)
[2020-10-03] MEDS ORDERED: MOM 30ML SUSPENSION UDC PO PRN (14:30)
[2020-10-03] MEDS ORDERED: MAALOX 30 ML SUSP *UDC PO PRN (14:30)
[2020-10-03] MEDS: NICOTINE 21MG/24HR 1 EA TRANSDERMAL TD SCH (15:56)
[2020-10-03 16:30] VITALS: BP 102/70
[2020-10-03] MEDS ORDERED: hydrOXYzine 50 MG TAB PO PRN (17:30)
--- NOTE | 2020-10-03 17:46 | ECGEPIP ---
[facility] - ED Test Date: 2020-10-02 Pat Name: AMOR KATHLEEN Department: Room: - Gender: Female [employer]ed [employer] Pcb Designer: : 1990 Requested By: SATHISH Reyes Order Number: [id number] Reading MD: Fay Cochran Measurements Intervals [place] Rate: 61 P: 66 CO: 138 QRS: 54 QRSD: 62 T: 58 QT: 358 QTc: 360 Interpretive Statements Sinus rhythm with marked sinus arrhythmia nsttw abnormality decreased rate 05/13/19 Electronically Signed on 10-03-2020 17:46:14 EDT by Fay Cochran
[2020-10-03] MEDS: LITHIUM CARBONATE 150 MG CAP PO SCH (21:00)
[2020-10-03] MEDS: MONTELUKAST 10 MG TAB PO SCH (21:33)
[2020-10-03] MEDS: OLANZapine 10 MG TAB PO SCH (21:33)
[2020-10-03] MEDS: lamoTRIgine 100MG TAB PO SCH (21:34)
[2020-10-03] MEDS: PILL CUTTER 1 EACH XX PRN (21:35)
[2020-10-04 07:30] VITALS: BP 112/70
[2020-10-04] MEDS: LITHIUM CARBONATE 150 MG CAP PO SCH ×2 (09:00→21:00)
[2020-10-04] MEDS: OMEPRAZOLE 20 MG CAP PO SCH (09:12)
[2020-10-04] MEDS: lamoTRIgine 100MG TAB PO SCH ×2 (09:12→21:28)
[2020-10-04] MEDS: NICOTINE 21MG/24HR 1 EA TRANSDERMAL TD SCH (09:13)
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
[2020-10-04] MEDS: FLUTICASONE PROP 0.05% NASAL SPRAY 16 GM (FLONASE) NARES PRN (11:41)
[2020-10-04] MEDS: IBUPROFEN 400MG TAB PO PRN (11:42)
[2020-10-04] MEDS ORDERED: hydrOXYzine 25 MG TAB PO PRN (16:20)
[2020-10-04 17:48] VITALS: BP 134/86
[2020-10-04] MEDS: OLANZapine 10 MG TAB PO SCH (21:28)
[2020-10-04] MEDS: MONTELUKAST 10 MG TAB PO SCH (21:28)
[2020-10-04] MEDS: PILL CUTTER 1 EACH XX PRN (21:29)
[2020-10-04] MEDS: OLANZapine ORAL DISINTEGRATING TAB 5MG PO PRN (21:43)
[2020-10-05] MEDS: FLUTICASONE PROP 0.05% NASAL SPRAY 16 GM (FLONASE) NARES PRN (08:53)
[2020-10-05] MEDS: NICOTINE 21MG/24HR 1 EA TRANSDERMAL TD SCH (08:53)
[2020-10-05] MEDS: PILL CUTTER 1 EACH XX PRN (08:53)
[2020-10-05] MEDS: OMEPRAZOLE 20 MG CAP PO SCH (08:54)
[2020-10-05] MEDS: LITHIUM CARBONATE 150 MG CAP PO SCH ×2 (08:54→20:01)
[2020-10-05] MEDS: lamoTRIgine 100MG TAB PO SCH ×2 (08:55→20:01)
[2020-10-05] MEDS: OLANZapine ORAL DISINTEGRATING TAB 5MG PO PRN ×2 (11:20→20:56)
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
[2020-10-05] MEDS: IBUPROFEN 400MG TAB PO PRN (19:15)
[2020-10-05] MEDS: OLANZapine 10 MG TAB PO SCH (20:01)
[2020-10-05] MEDS: MONTELUKAST 10 MG TAB PO SCH (20:01)
[2020-10-06] MEDS: IBUPROFEN 400MG TAB PO PRN (06:09)
[2020-10-06 06:21] VITALS: BP 140/72
[2020-10-06] MEDS: OLANZapine ORAL DISINTEGRATING TAB 5MG PO PRN (07:31)
[2020-10-06] MEDS ORDERED: HYDR50TA70 PO (08:18)
[2020-10-06] MEDS ORDERED: NICO21PAT TD (08:18)
[2020-10-06] MEDS ORDERED: OMEP-218 PO (08:18)
[2020-10-06] MEDS ORDERED: LITH150C PO (08:18)
[2020-10-06] MEDS ORDERED: FLUTISP NARES (08:18)
[2020-10-06] MEDS ORDERED: MONT10TA10 PO (08:18)
[2020-10-06] MEDS ORDERED: OLAN10TA2 PO (08:18)
[2020-10-06] MEDS ORDERED: LAMO150T3 PO (08:18)
[2020-10-06] MEDS: PILL CUTTER 1 EACH XX PRN (08:27)
[2020-10-06] MEDS: FLUTICASONE PROP 0.05% NASAL SPRAY 16 GM (FLONASE) NARES PRN (08:27)
[2020-10-06] MEDS: lamoTRIgine 100MG TAB PO SCH (08:28)
[2020-10-06] MEDS: OMEPRAZOLE 20 MG CAP PO SCH (08:28)
[2020-10-06] MEDS: LITHIUM CARBONATE 150 MG CAP PO SCH (08:28)
[2020-10-06] MEDS: NICOTINE 21MG/24HR 1 EA TRANSDERMAL TD SCH (08:29)
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
== END 2020-10-06 10:21 | disposition home or self-care (01) | DRG 885 ==
LOC: M ED 16:45 → M ED INP 10-03 14:26 → M PSY 10-03 16:05
PROVIDERS: ADMIT Psychiatry & Neurology Psychiatry; ATTEND Psychiatry & Neurology Psychiatry
DX: F31.10 Bipolar disorder, current episode manic without psychotic features, unspecified (principal); F17.210 Nicotine dependence, cigarettes, uncomplicated; F43.10 Post-traumatic stress disorder, unspecified; Z20.822 Contact with and (suspected) exposure to COVID-19; Z79.899 Other long term (current) drug therapy; Z88.8 Allergy status to other drugs, medicaments and biological substances; Z91.5 Personal history of self-harm; F50.9 Eating disorder, unspecified; G47.00 Insomnia, unspecified

== ENCOUNTER 2020-10-09 23:39 | Emergency (ER) | payer MEDICARE ==
[~2020-10-09 23:39] MED LIST changes: +LITH150C PO
[2020-10-09] MEDS ORDERED: LORazepam 2 MG/ML VIAL IM ONE (23:55)
[2020-10-09] MEDS ORDERED: diphenhydrAMINE 50MG/ML VIAL (J1200) IM ONE (23:55)
[2020-10-09] MEDS ORDERED: HALOPERIDOL 5MG/ML VIAL (J1630 PER 1) IM ONE (23:55)
[2020-10-10 00:36] LABS: AMPHETAMINES LEVEL URINE NEGATIVE (NEGATIVE); BARBITURATES URINE NEGATIVE (NEGATIVE); BENZODIAZEPINES URINE NEGATIVE (NEGATIVE); CANNABINOIDS URINE NEGATIVE (NEGATIVE); COCAINE METABOLITE URINE NEGATIVE (NEGATIVE); METHADONE URINE NEGATIVE (NEGATIVE); OPIATES URINE NEGATIVE (NEGATIVE); PHENCYCLIDINE URINE NEGATIVE (NEGATIVE)
[2020-10-10 00:59] LABS: HEMATOCRIT 35.3 % (36.0-47.0); HEMOGLOBIN 11.5 g/dl (12.0-15.5); MEAN CORPUSCULAR HEMOGLOBIN 31.9 pg (27.0-33.0); MEAN CORPUSCULAR HGB CONC 32.6 g/dl (32.0-36.5); MEAN CORPUSCULAR VOLUME 97.8 fl (80.0-96.0); PLATELET COUNT, AUTOMATED 362 10^3/uL (150-450); RED BLOOD COUNT 3.61 10^6/uL (4.00-5.40); WHITE BLOOD COUNT 16.1 10^3/uL (4.0-10.0)
[2020-10-10 01:43] LABS: HCG, SERUM QUALITATIVE NEGATIVE (NEGATIVE)
[2020-10-10 01:54] LABS: ACETAMINOPHEN LEVEL < 2.0 UG/ML (10.0-30.0); ALBUMIN 3.7 GM/DL (3.2-5.2); ALT/SGPT 19 U/L (12-78); BILIRUBIN,DIRECT < 0.1 MG/DL (0.0-0.2); BILIRUBIN,TOTAL 0.2 MG/DL (0.2-1.0); BLOOD UREA NITROGEN 16 MG/DL (7-18); CALCIUM LEVEL 9.5 MG/DL (8.5-10.1); CARBON DIOXIDE LEVEL 28 MEQ/L (21-32); CHLORIDE LEVEL 106 MEQ/L (98-107); CREATININE FOR GFR 0.82 MG/DL (0.55-1.30); GLOMERULAR FILTRATION RATE > 60.0 (>60); GLUCOSE, FASTING 98 MG/DL (70-100); POTASSIUM SERUM 3.6 MEQ/L (3.5-5.1); SALICYLATE LEVEL < 1.7 MG/DL (5.0-30.0); SODIUM LEVEL 140 MEQ/L (136-145); TOTAL PROTEIN 7.1 GM/DL (6.4-8.2)
[2020-10-10 01:55] LABS: ETHYL ALCOHOL (ETHANOL) < 0.003 % (0.000-0.010)
[2020-10-10 11:13] LABS: RSV AMPLIFICATION NEGATIVE (NEGATIVE)
[2020-10-10 13:47] VITALS: BP 141/84
--- NOTE | 2020-10-11 07:36 | ECGEPIP ---
[facility] - ED Test Date: 2020-10-10 Pat Name: AMOR KATHLEEN Department: Room: - Gender: Female [employer]: MARIE : 1990 Requested By: JOSSELIN Prescott Order Number: [id number] Reading MD: Doug Blackwell Measurements Intervals [place] Rate: 86 P: 75 ID: [id number] QRS: 62 QRSD: 74 T: 71 QT: 354 QTc: 423 Interpretive Statements Normal sinus rhythm POOR R WAVE PROGRESSION SIMILAR TO 10/02/20 Electronically Signed on 10-11-2020 7:35:47 EDT by Doug Blackwell
== END 2020-10-10 13:50 | disposition other institution (70) ==
LOC: M ED 23:39
DX: F29 Unspecified psychosis not due to a substance or known physiological condition (principal); F31.9 Bipolar disorder, unspecified; Z79.899 Other long term (current) drug therapy

== ENCOUNTER 2021-03-15 18:13 | Inpatient (IN) | payer MEDICARE, MEDICAID ==
[~2021-03-15] VITALS: Ht 162.6 cm; Wt 58.1 kg
[~2021-03-15 18:13] MED LIST changes: +ERGO500029 PO; -KLOR10TA76 PO; -OLAN10TA2 PO; -OLAN15TA PO; +OLAN15TA13 PO; +OLAN1TAB20 PO; -OLAN7.5T PO; +OLAN7.5T8 PO; +POTA-136 PO; +QUET1TAB17 PO; -QUET25TA3 PO; -QUET50TA3; +QUET50TA4; -VITA50005 PO
--- OUTSIDE RECORDS SUMMARY | 2021-03-15 18:24 | CCD ---
Author Author [facility] Organization [facility] Address Unknown Phone Unavailable Care Team Providers Care Sheet Metal Worker Helper Name Role Phone RENEA II, F IVÁN DO Unavailable Unavailable RENEA II, F IVÁN DO Unavailable Unavailable RENEA II, F IVÁN DO Unavailable Unavailable RENEA II, F IVÁN DO Unavailable Unavailable RENEA II, F IVÁN DO Unavailable Unavailable RENEA II, F IVÁN DO Unavailable Unavailable RENEA II, F IVÁN DO Unavailable Unavailable RENEA II, F IVÁN DO Unavailable Unavailable RENEA II, F IVÁN DO Unavailable Unavailable RENEA II, F IVÁN DO Unavailable Unavailable RENEA II, F IVÁN DO Unavailable Unavailable RENEA II, F IVÁN DO Unavailable Unavailable RENEA II, F IVÁN DO Unavailable Unavailable RENEA II, F IVÁN DO Unavailable Unavailable RENEA II, F IVÁN DO Unavailable Unavailable Marta Ibanez CARDING MACHINE FEEDER Unavailable Unavailable Marta Ibanez CARDING MACHINE FEEDER Unavailable Unavailable Ibanez, Marta CARDING MACHINE FEEDER Unavailable Unavailable Ibanez, Marta CARDING MACHINE FEEDER Unavailable Unavailable Ibanez, Marta CARDING MACHINE FEEDER Unavailable Unavailable Ibanez, Marta CARDING MACHINE FEEDER Unavailable Unavailable Ibanez, Marta CARDING MACHINE FEEDER Unavailable Unavailable Ibanez, Marta CARDING MACHINE FEEDER Unavailable Unavailable Ibanez, Marta CARDING MACHINE FEEDER Unavailable Unavailable Ibanez, Marta CARDING MACHINE FEEDER Unavailable Unavailable Ibanez, Marta CARDING MACHINE FEEDER Unavailable Unavailable Ibanez, Marta CARDING MACHINE FEEDER Unavailable Unavailable Ibanez, Marta CARDING MACHINE FEEDER Unavailable Unavailable Ibanez, Marta CARDING MACHINE FEEDER Unavailable Unavailable Ibanez, Marta CARDING MACHINE FEEDER Unavailable Unavailable Ibanez, Marta CARDING MACHINE FEEDER Unavailable Unavailable Ibanez, Marta CARDING MACHINE FEEDER Unavailable Unavailable Ibanez, Marta CARDING MACHINE FEEDER Unavailable Unavailable Ibanez, Marta CARDING MACHINE FEEDER Unavailable Unavailable Ibanez, Marta CARDING MACHINE FEEDER Unavailable Unavailable Ibanez, Marta CARDING MACHINE FEEDER Unavailable Unavailable Ibanez, Marta CARDING MACHINE FEEDER Unavailable Unavailable Ibanez, Marta CARDING MACHINE FEEDER Unavailable Unavailable Ibanez, Marta CARDING MACHINE FEEDER Unavailable Unavailable Ibanez, Marta CARDING MACHINE FEEDER Unavailable Unavailable Ibanez, Marta CARDING MACHINE FEEDER Unavailable Unavailable Ibanez, Marta CARDING MACHINE FEEDER Unavailable Unavailable Ibanez, Marta CARDING MACHINE FEEDER Unavailable Unavailable Ibanez, Marta CARDING MACHINE FEEDER Unavailable Unavailable Ibanez, Marta CARDING MACHINE FEEDER Unavailable Unavailable Ibanez, Marta CARDING MACHINE FEEDER Unavailable Unavailable Ibanez, Marta CARDING MACHINE FEEDER Unavailable Unavailable Ibanez, Marta CARDING MACHINE FEEDER Unavailable Unavailable Ibanez, Marta CARDING MACHINE FEEDER Unavailable Unavailable Ibanez, Marta CARDING MACHINE FEEDER Unavailable Unavailable Ibanez, Marta CARDING MACHINE FEEDER Unavailable Unavailable Ibanez, Marta CARDING MACHINE FEEDER Unavailable Unavailable Ibanez, Marta CARDING MACHINE FEEDER Unavailable Unavailable Ibanez, Marta CARDING MACHINE FEEDER Unavailable Unavailable Ibanez, Marta CARDING MACHINE FEEDER Unavailable Unavailable Ibanez, Marta CARDING MACHINE FEEDER Unavailable Unavailable Shirin Fernandez MD Unavailable Unavailable Shirin Fernandez MD Unavailable Unavailable Shirin Fernandez MD Unavailable Unavailable Shirin Fernandez MD Unavailable Unavailable Shirin Fernandez MD Unavailable Unavailable Shirin Fernandez MD Unavailable Unavailable Shirin Fernandez MD Unavailable Unavailable Shirin Fernandez MD Unavailable Unavailable Shirin Fernandez MD Unavailable Unavailable Shirin Fernandez MD Unavailable Unavailable Shirin Fernandez MD Unavailable Unavailable Shirin Fernandez MD Unavailable Unavailable Shirin Fernandez MD Unavailable Unavailable Shirin Fernandez MD Unavailable Unavailable Shirin Fernandez MD Unavailable Unavailable Shirin Fernandez MD Unavailable Unavailable Shirin Fernandez MD Unavailable Unavailable Shirin Fernandez MD Unavailable Unavailable Shirin Fernandez MD Unavailable Unavailable SYMENOW, G CHRISTOPHER PA Unavailable Unavailable SYMENOW, G CHRISTOPHER PA Unavailable Unavailable SYMENOW, G CHRISTOPHER PA Unavailable Unavailable SYMENOW, G CHRISTOPHER PA Unavailable Unavailable SYMENOW, G CHRISTOPHER PA Unavailable Unavailable SYMENOW, G CHRISTOPHER PA Unavailable Unavailable SYMENOW, G CHRISTOPHER PA Unavailable Unavailable SYMENOW, G CHRISTOPHER PA Unavailable Unavailable SYMENOW, G CHRISTOPHER PA Unavailable Unavailable SYMENOW, G CHRISTOPHER PA Unavailable Unavailable SYMENOW, G CHRISTOPHER PA Unavailable Unavailable SYMENOW, G CHRISTOPHER PA Unavailable Unavailable SYMENOW, G CHRISTOPHER PA Unavailable Unavailable SYMENOW, G CHRISTOPHER PA Unavailable Unavailable SYMENOW, G CHRISTOPHER PA Unavailable Unavailable SYMENOW, G CHRISTOPHER PA Unavailable Unavailable DESJARLAIS, ADIA GEOTECHNICIAN Unavailable Unavailable DESJARLAIS, ADIA GEOTECHNICIAN Unavailable Unavailable DESJARLAIS, ADIA GEOTECHNICIAN Unavailable Unavailable DESJARLAIS, ADIA GEOTECHNICIAN Unavailable Unavailable DESJARLAIS, ADIA GEOTECHNICIAN Unavailable Unavailable DESJARLAIS, ADIA GEOTECHNICIAN Unavailable Unavailable DESJARLAIS, ADIA GEOTECHNICIAN Unavailable Unavailable DESJARLAIS, ADIA GEOTECHNICIAN Unavailable Unavailable DESJARLAIS, ADIA GEOTECHNICIAN Unavailable Unavailable AUGUSTINA ROBLES MD Unavailable Unavailable AUGUSTINA ROBLES MD Unavailable Unavailable AUGUSTINA ROBLES MD Unavailable Unavailable AUGUSTINA ROBLES MD Unavailable Unavailable AUGUSTINA ROBLES MD Unavailable Unavailable AUGUSTINA ROBLES MD Unavailable Unavailable AUGUSTINA ROBLES MD Unavailable Unavailable AUGUSTINA ROBLES MD Unavailable Unavailable Jorge Suazo MD Unavailable Unavailable Jorge Suazo MD Unavailable Unavailable Jorge Suazo MD Unavailable Unavailable Jorge Suazo MD Unavailable Unavailable Jorge Suazo MD Unavailable Unavailable Jorge Suazo MD Unavailable Unavailable Jorge Suazo MD Unavailable Unavailable Jorge Suazo MD Unavailable Unavailable Jorge Suazo MD Unavailable Unavailable Jorge Suazo MD Unavailable Unavailable Jorge Suazo MD Unavailable Unavailable Jorge Suazo MD Unavailable Unavailable Jorge Suazo MD Unavailable Unavailable Jorge Suazo MD Unavailable Unavailable Jorge Suazo MD Unavailable Unavailable Jorge Suazo MD Unavailable Unavailable Jorge Suazo MD Unavailable Unavailable Jorge Suazo MD Unavailable Unavailable Jorge Suazo MD Unavailable Unavailable Jorge Suazo MD Unavailable Unavailable Jorge Suazo MD Unavailable Unavailable Jorge Suazo MD Unavailable Unavailable Jorge Suazo MD Unavailable Unavailable Jorge Suazo MD Unavailable Unavailable Jorge Suazo MD Unavailable Unavailable Jorge Suazo MD Unavailable Unavailable Joreg Suazo MD Unavailable Unavailable Jorge Suazo MD Unavailable Unavailable Jorge Suazo MD Unavailable Unavailable Jorge Suazo MD Unavailable Unavailable Jorge Suazo MD Unavailable Unavailable Jorge Suazo MD Unavailable Unavailable Jorge Suazo MD Unavailable Unavailable Jorge Suazo MD Unavailable Unavailable Jorge Suazo MD Unavailable Unavailable Jorge Suazo MD Unavailable Unavailable Jorge Suazo MD Unavailable Unavailable Jorge Suazo MD Unavailable Unavailable Jorge Suazo MD Unavailable Unavailable Jorge Suazo MD Unavailable Unavailable Jorge Suazo MD Unavailable Unavailable Jorge Suazo MD Unavailable Unavailable Jorge Suazo MD Unavailable Unavailable Jorge Suazo MD Unavailable Unavailable Jorge Suazo MD Unavailable Unavailable Jorge Suazo MD Unavailable Unavailable Jorge Suazo MD Unavailable Unavailable Jorge Suazo MD Unavailable Unavailable Jorge Suazo MD Unavailable Unavailable Jorge Suazo MD Unavailable Unavailable Jorge Suazo MD Unavailable Unavailable Jorge Suazo MD Unavailable Unavailable Jorge Suazo MD Unavailable Unavailable Jorge Suazo MD Unavailable Unavailable Jorge Suazo MD Unavailable Unavailable Jorge Suazo MD Unavailable Unavailable Jorge Suazo MD Unavailable Unavailable Jorge Suazo MD Unavailable Unavailable Jorge Suazo MD Unavailable Unavailable Jorge Suazo MD Unavailable Unavailable Jorge Suazo MD Unavailable Unavailable Jorge Suazo MD Unavailable Unavailable Jorge Suazo MD Unavailable Unavailable Jorge Suazo MD Unavailable Unavailable Jorge Suazo MD Unavailable Unavailable Jorge Suazo MD Unavailable Unavailable Jorge Suazo MD Unavailable Unavailable Jorge Suazo MD Unavailable Unavailable Jorge Suazo MD Unavailable Unavailable Jorge Suazo MD Unavailable Unavailable Jroge Suazo MD Unavailable Unavailable Jorge Suazo MD Unavailable Unavailable Jorge Suazo MD Unavailable Unavailable Jorge Suazo MD Unavailable Unavailable BROWN, L LAZARA Unavailable Unavailable Kelly Pacheco Unavailable Kelly Pacheco Unavailable Elgin Ansley Unavailable Corzanae, Ansley Unavailable Corbine, Ansley Unavailable CORBINE, S ANSLEY Unavailable Unavailable CORBINE, S ANSLEY Unavailable Unavailable SYSTEM, NOT IN PROVIDER Unavailable Unavailable PANCHO, FATUMA JOSE LUIS PA-C Unavailable Unavailable PANCHO, FATUMA JOSE LUIS PA-C Unavailable Unavailable PANCHO, FATUMA JOSE LUIS PA-C Unavailable Unavailable PANCHO, FATUMA JOSE LUIS PA-C Unavailable Unavailable PANCHO, FATUMA JOSE LUIS PA-C Unavailable Unavailable PANCHO, FATUMA JOSE LUIS PA-C Unavailable Unavailable PANCHO, FATUMA JOSE LUIS PA-C Unavailable Unavailable PANCHO, FATUMA JOSE LUIS PA-C Unavailable Unavailable PANCHO, FATUMA JOSE LUIS PA-C Unavailable Unavailable PANCHO, FATUMA JOSE LUIS PA-C Unavailable Unavailable SONYANDRESSA SCOTT Unavailable Unavailable Re-disclosure Warning The records that you are about to access may contain information from federally-assisted alcohol or drug abuse programs. If such information is present, then the following federally mandated warning applies: This information has been disclosed to you from records protected by federal confidentiality rules (42 CFR part 2). The federal rules prohibit you from making any further disclosure of this information unless further disclosure is expressly permitted by the written consent of the person to whom it pertains or as otherwise permitted by 42 CFR part 2. A general authorization for the release of medical or other information is NOT sufficient for this purpose. The Federal rules restrict any use of the information to criminally investigate or prosecute any alcohol or drug abuse patient.The records that you are about to access may contain highly sensitive health information, the redisclosure of which is protected by Article 27-F of the [facility] Public Health law. If you continue you may have access to information: Regarding HIV / AIDS; Provided by facilities licensed or operated by the [facility] Office of Mental Health; or Provided by the [facility] Office for People With Developmental Disabilities. If such information is present, then the following [facility] mandated warning applies: This information has been disclosed to you from confidential records which are protected by state law. State law prohibits you from making any further disclosure of this information without the specific written consent of the person to whom it pertains, or as otherwise permitted by law. Any unauthorized further disclosure in violation of state law may result in a fine or detention sentence or both. A general authorization for the release of medical or other information is NOT sufficient authorization for further disc losure. Allergies and Adverse Reactions Type Description Substance Reaction Status Data Source(s ) Propensity to adverse reactions TRAZODONE AND NEFAZODONE TRA ZODONE AND NEFAZODONE [facility]ital Propensity to adverse reactions LISDEXAMFETAMINE LISDEXAMFETAMINE [facility] Propensity to adverse reactions HYDROCODONE Hydrocodone [facility] Propensity to adverse reactions ALLERGIES NOT ON FILE ALLERGIES NOT O N FILE [facility] Family History Family Member Name Family Member Gender Family Member Status Date o f Status Description Data Source(s) Unknown Unknown Problem MEDENT (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 Outpatient Attender: ADIA VALENCIA NP 03/02/2021 09: 20:00 AM [facility] Outpatient Attender: ADIA VALENCIA NP 02/16/2021 11: 00:00 AM [facility] Outpatient Attender: ADIA VALENCIA NP 01/16/2021 08: 00:00 AM [facility] Outpatient Attender: ADIA VALENCIA NP 12/08/2020 03: 20:00 PM [facility] Outpatient Attender: ADIA VALENCIA NP 11/02/2020 10: 40:00 AM [facility] Outpatient Attender: Kelly Pacheco 11/01/2020 01:43:00 PM [facility] Inpatient Attender: AUGUSTINA Jerngian nder: Shirin Fernandez MDAdmitter: Shirin Fernandez MDReferrer: PROVIDER SYSTEM [id number] 09/30 12:00:00 AM EDT - 10/20/2020 10:40:00 AM EDT Major depressive disorder, recurrent, unspecified [facility] Major depressive disorder, recurrent, un specified Patient discharged. Outpatient Attender: Kelly Junior 09/26/2020 12:38:00 PM [facility] Outpatient Attender: ADIA VALENCIA NP 09/26/2020 09: 52:00 AM [facility] Outpatient [id number] [facility] [address] 09/19/2020 12:00:00 AM EDT eCW1 (Formerly [facility]) Outpatient Attender: ADIA VALENCIA NP 09/12/2020 10: 16:00 AM [facility] Outpatient [address] [facility] [address] 09/01/2020 12:00:00 AM EDT eCW1 (Formerly [facility]) Outpatient Attender: ADIA VALENCIA NP 08/29/2020 10: 25:00 AM [facility] Outpatient Attender: ADIA VALENCIA NP 08/04/2020 04: 20:00 PM [facility] Outpatient Attender: ADIA VALENCIA NP 07/11/2020 04: 20:00 PM [facility] Outpatient Attender: ADIA VALENCIA NP 06/01/2020 04: 20:00 PM [facility] Outpatient Attender: ADIA VALENCIA NP 04/20/2020 04: 00:00 PM [facility] Unknown [address] [facility] [address] 04/14/2020 12:00:00 AM EST eCW1 ([facility]) Unknown [address] [facility] [address] 03/28/2020 12:00:00 AM EDT eCW1 ([facility]ly [facility]) Outpatient [facility] 03/21/2020 12:00:00 AM EDT eCW1 ([facility]) Unknown [address] [facility] [address] 03/15/2020 12:00:00 AM EDT eCW1 ([facility]) Unknown [address] [facility] [address] 03/09/2020 12:00:00 AM EDT eCW1 ([facility]) Unknown [address] [facility] [address] 03/09/2020 12:00:00 AM EDT eCW1 ([facility]ly [facility]) Outpatient Attender: ADIA VALENCIA GEOTECHNICIAN 02/09/2020 02: 00:00 PM [facility] Outpatient Attender: ADIA VALENCIA GEOTECHNICIAN 01/19/2020 11: 00:00 AM [facility] Outpatient Attender: ADIA VALENCIA GEOTECHNICIAN 12/24/2019 03: 40:00 PM [facility] Outpatient Attender: ADIA VALENCIA GEOTECHNICIAN 12/14/2019 04: 20:00 PM [facility] Outpatient Attender: JOSE LUIS MELGARCAttender: ANDRESSA CARDOZA 12/06/2019 11:25:00 AM [facility] Outpatient Attender: ADIA VALENCIA GEOTECHNICIAN 11/24/2019 02: 40:00 PM [facility] Outpatient Attender: ADIAMARIZOL VALENCIA GEOTECHNICIAN 11/03/2019 04: 20:00 PM [facility] Outpatient Attender: ADIA VALENCIA GEOTECHNICIAN 10/28/2019 04: 00:00 PM [facility] Outpatient Attender: ADIA VALENCIA GEOTECHNICIAN 10/19/2019 09: 46:00 AM [facility] Outpatient Attender: ADIA DANYARLAIS GEOTECHNICIAN 10/12/2019 11: 20:00 AM [facility] Outpatient Attender: ADIA DANYARLAIS GEOTECHNICIAN 10/07/2019 03: 59:00 PM [facility] Outpatient Attender: ADIA DANYARPRITESHIS GEOTECHNICIAN 09/28/2019 04: 33:00 PM [facility] Outpatient Attender: ADIA VALENCIA GEOTECHNICIAN 09/21/2019 10: 40:00 AM [facility] Outpatient Attender: ADIA HAGANRARLINE GEOTECHNICIAN 09/16/2019 11: 20:00 AM [facility] Outpatient Attender: AIDA VALENCIA GEOTECHNICIAN 09/10/2019 08: 25:00 AM [facility] Outpatient Attender: JOSE LUIS Koenigtender: ANDRESSA CARDOZA 09/09/2019 03:30:00 PM [facility] Outpatient Attender: ADIA VALENCIA GEOTECHNICIAN 08/26/2019 11: 00:00 AM [facility] Outpatient Attender: ADIA VALENCIA GEOTECHNICIAN 08/05/2019 11: 00:00 AM [facility] Outpatient Attender: ADIA VALENCIA GEOTECHNICIAN 07/13/2019 03: 37:00 PM [facility] Outpatient Attender: Ansley Viveros cony: ANSLEY Lamender: ADIA VALENCIA NP 07/08/2019 08:26:00 AM [facility] Outpatient Attender: ADIA VALENCIA GEOTECHNICIAN 07/01/2019 04: 15:00 PM [facility] Outpatient Attender: ADIA VALENCIA NP 06/22/2019 08: 52:00 AM [facility] Outpatient Attender: ADIA VALENCIA GEOTECHNICIAN 05/27/2019 10: 40:00 AM [facility] Outpatient Attender: LAZARA ORTEGA 05/21/2019 08:15:00 AM [facility] Outpatient Attender: LAZARA ORTEGA 05/20/2019 04:58:00 PM [facility] Outpatient Attender: ADIA VALENCIA NP 05/20/2019 09: 20:00 AM [facility] Outpatient Attender: ADIA VALENCIA NP 04/01/2019 04: 30:00 PM [facility] Outpatient Attender: ADIA VALENCIA GEOTECHNICIAN 02/26/2019 12: 56:00 PM [facility] Outpatient Attender: Chris Suazo MD 10/14/2016 06:44:00 PM [facility] Attender: IVÁN MEIER II 07/30 03:31:00 PM [facility] 07/30/2014 03:57:00 PM [facility] Outpatient Attender: Marta NÚÑEZ EMERGENCY ROOM-[facility] 06/16/2012 08:58:00 AM [facility] - 06/16/2012 08:58:[address] [facility] pital Immunizations Vaccine Date Status Description Data Source(s) COVID-19 VACC,MRNA(MODERNA)/PF 10/23/2020 12:00:00 AM EDT completed [facility] COVID-19 VACCINE Moderna 10/23/2020 12:00:00 AM EDT completed [facility] Vaccine Series Complete: YESThis Data wa s Submitted to [facility] Via Rapid Pathogen Screening. COVID-19 VACCINE Moderna 09/14/2020 12:00:00 AM EDT completed [facility] Vaccine Series Complete: NOThis Data was Submitted to [facility] Via Rapid Pathogen Screening. COVID-19 VACC,MRNA(MODERNA)/PF 09/14/2020 12:00:00 AM EDT completed [facility] Medications Medication Brand Name Start Date Product Form Dose Route Admi nistrative Instructions Pharmacy Instructions Status Indications Reaction Description Data Source(s) 10 mg 03/02/2021 12:00:00 AM EDT tablet 10 TAKE ONE TABLET BY MOUTH EVERY DAY FOR 10 DAYS TAKE ONE TABLET BY MOUTH EVERY DAY FOR 10 DAYS SOLD: [facility] 10 mg 02/18/2021 12:00:00 AM EDT tablet 10 TAKE ONE TABLET BY MOUTH EVERY DAY FOR 10 DAYS TAKE ONE TABLET BY MOUTH EVERY DAY FOR 10 DAYS SOLD: [facility] 300 mg 02/16/2021 12:00:00 AM EDT tablet extended release 30 TAKE ONE TABLET BY MOUTH AT BEDTIME TAKE ONE TABLET BY MOUTH AT BEDTIME SOLD: 02/17/2021 [facility] 10 mg 12/10/2020 12:00:00 AM EDT tablet 120 TAKE TWO TABLETS BY MOUTH TWICE A DAY TAKE TWO TABLETS BY MOUTH TWICE A DAY SOLD: 12/10/2020 [facility] 450 mg 12/10/2020 12:00:00 AM EDT tablet extended release 30 TAKE ONE TABLET BY MOUTH AT BEDTIME TAKE ONE TABLET BY MOUTH AT BEDTIME SOLD: 12/10/2020 [facility] 10 mg 11/02/2020 12:00:00 AM EDT tablet 90 TAKE ONE TABLET BY MOUTH THREE TIMES A DAY TAKE ONE TABLET BY MOUTH THREE TIMES A DAY SOLD: 11/04/2020 [facility] 1,250 mcg (50,000 unit) 11/02/2020 12:00:00 AM EDT capsule 12 TAKE 1 CAPSULE BY MOUTH ONCE A WEEK TAKE 1 CAPSULE BY MOUTH ONCE A WEEK SOLD: 11/04/2020 [id number] Amenia Carbonate 450 MG Extended Releas e Oral Tablet Amenia Carbonate ER 450 MG Oral Tablet Extended Release (ESKALITH) Amenia Carbonate ER 450 MG Oral Tablet Extended Release (ESKALITH) 10/20/2020 12:00:00 AM EDT 450 mg Oral active Take 1 tablet by mouth Two Times Daily [facility] olanzapine 10 MG Oral Tablet OLANZapine 10 MG Oral Tab let (ZYPREXA) OLANZapine 10 MG Oral Tablet (ZYPREXA) 10/20/2020 12:00:00 AM EDT 10 mg Oral active Take 1 tablet by mouth nightly as needed [facility] sennosides, INTERMEDIATE 8.6 MG Oral Tablet senna tablet 2 tablet sen na tablet 2 tablet 10/18/2020 10:00:00 PM EDT 2 {tbl} Oral active 2 tablet, Oral, Nightly, First dose on Fri10/18/20 at 2200, For 30 days [facility] Medication administered onsite Docusate Sodium 100 MG Oral Capsule docusate sodium (C OLACE) capsule 100 mg docusate sodium (COLACE) capsule 100 mg 10/18/2020 01:15:00 PM EDT 100 mg Oral active 100 mg, Oral, 2 Times Daily, First dose on Fri10/18/20 at 1315, For 30 days [facility] Medication administered onsite POLYETHYLENE GLYCOL 3350 142 MG/ML Oral Solution polyethylene glycol (MIRALAX) packet 17 g polyethylene glycol (MIRALAX) packet 17 g 10/18/2020 0 1:15:00 PM EDT 17 g Oral active 17 g, Or al, Daily Standard, First dose on Fri10/18/20 at 1315, For 30 days
Mix in 8 ounces of water, juice or milk. Avoid use in patients who require thickened liquids due to potential increased risk for aspiration.
[facility] Medication administered onsite Hydroxyzine Pamoate 25 MG Oral Capsule hydrOXYzine ( STARIL) capsule 25 mg hydrOXYzine (VISTARIL) capsule 25 mg 10/18/2020 10:03:55 AM EDT 25 mg Oral active 25 mg, Oral, June ry 6 hours PRN, Anxiety, Starting on Fri10/18/20 at 1003, For 534 hours [facility] Medication administered onsite lithium capsule 450 mg 10/17/2020 09:00:00 PM EDT 450 mg Oral active 450 mg, Oral, 2 Times Daily, First dose (after last modification) on Fri10/17/20 at 2100, For 46 doses [facility] Medication administered onsite Amenia Carbonate 150 MG Oral Capsule lithium capsule 150 mg lithium capsule 150 mg 10/17/2020 11:00:00 AM EDT 150 mg Oral completed 150 mg, Oral, Once, On Fri10/17/20 at 1100, For 1 dose [facility] Medication administered onsite Nicotine 2 MG Oral Lozenge nicotine (NICORETTE) lozeng e 2 mg nicotine (NICORETTE) lozenge 2 mg 10/16/2020 07:02:01 PM EDT 2 mg Mouth/Th roat active 2 mg, Mouth/Throat, Every 2 hours PRN, Smoking cessation, Starting on Fri10/16/20 at 1902, For 30 days
Should not be chewed or swallowed; allow to dissolve slowly (~20-30 minutes)
[facility] Medication administered onsite Magnesium Hydroxide 80 MG/ML Oral Suspen lefty magnesium hydroxide (MILK OF MAGNESIA) 400 MG/5ML oral suspension 15 mL magnesium hydroxide (MILK OF MAGNESIA) 400 MG/5ML oral suspension 15 mL 10/14/2020 06:44:57 PM EDT 15 mL Oral active 15 mL, Oral, D aily PRN, Constipation, Starting on Fri10/14/20 at 1844, For 30 days
If serum creatinine > 2 notify provider before administering.
[facility] Medication administered onsite lamoTRIgine (LaMICtal) tablet 150 mg 10/13/2020 09:00:00 PM EDT 150 mg Oral active 150 mg, Oral, 2 Times Daily, First dose (after last modification) on Fri10/13/20 at 2100, For 54 doses [facility] Medication administered onsite Amenia Carbonate 300 MG Oral Capsule lithium carbonat e capsule 300 mg lithium carbonate capsule 300 mg 10/13/2020 11:15:00 AM EDT 300 mg Oral completed 300 mg, Oral, Once, On Fri10/13/20 at 11 15, For 1 dose [facility] Medication administered onsite lamotrigine 100 MG Oral Tablet lamoTRIgine (LaMICtal) tablet 100 mg lamoTRIgine (LaMICtal) tablet 100 mg 10/13/2020 11:15:00 AM EDT 100 mg Oral active 100 mg, Oral, Once, On Fri10/13/20 at 1115, For 1 dose [facility] Medication administered onsite Hydroxyzine Hydrochloride 10 MG Oral Tablet hydrOXYzin e (ATARAX) tablet 10 mg hydrOXYzine (ATARAX) tablet 10 mg 10/13/2020 11:07:44 AM EDT 10 mg Oral aborted 10 mg, Oral, Every 6 hours PRN, Anxiety, Starting on Fri10/13/20 at 1107, For 653 hours [facility] Medication administered onsite Amenia Carbonate 300 MG Oral Capsule lithium carbonat e capsule 300 mg lithium carbonate capsule 300 mg 10/12/2020 09:00:00 PM EDT 300 mg Oral aborted 300 mg, Oral, 2 Times Daily, First dose (after last modification) on Fri10/12/20 at 2100, For 56 doses [facility] Medication administered onsite lamotrigine 25 MG Oral Tablet lamoTRIgine (LaMICtal) t ablet 50 mg lamoTRIgine (LaMICtal) tablet 50 mg 10/11/2020 09:00:00 PM EDT 50 mg Oral aborted 50 mg, Oral, 2 Times Daily, First dose (after last modification) on Fri10/11/20 at 2100, For 58 doses [facility] Medication administered onsite Ibuprofen 600 MG Oral Tablet ibuprofen (MOTRIN) tablet 600 mg ibuprofen (MOTRIN) tablet 600 mg 10/11/2020 10:34:55 AM EDT 600 mg Oral acti ve 600 mg, Oral, Every 6 hours PRN, Moderate Pain (Pain Scale Score 4-6), Starting on Fri10/11/20 at 1034, For 701 hours
Take with food.
[facility] Medication administered onsite Ergocalciferol 20108 UNT Oral Capsule vi tamin D (ERGOCALCIFEROL) capsule 50,000 Units vitamin D (ERGOCALCIFEROL) capsule 50,000 Units 2020 09:00:00 AM EDT 10649 U Oral active 50,000 U nits, Oral, Weekly, First dose on Fri10/11/20 at 0900,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 Interpretation Code Description Data Verna rce(s) Supporting Document(s) GLUCOSE 94 mg/dL 74-106 [facility] BLOOD UREA NITROGEN 14 mg/dL 7-18 [facility] ital CREATININE 0.90 mg/dL 0.6-1.0 [facility] SODIUM 132 mmol/L 136-145 L [facility] POTASSIUM 2.4 mmol/L 3.5-5.1 *L [facility] CHLORIDE 87 mmol/L 98-107 *L [facility] CO2 40 mmol/L 21-32 H [facility] CALCIUM 9.1 mg/dL 8.5-10.1 [facility] ANION GAP 5.0 mmol/L 5-12 [facility] GLOMERULAR FILTRATION RATE 73 mL/min [facility] GFR IS CALCULATED IN mL/min/1.73m2 VALENTIN L FUNCTION: >90MILDLY DECREASED: 60-89MILDY TO MODERATELY DECREASED: 45-59 MODERATELY TO SEVERELY DECREASED: 30-44SEVERELY DECREASED: 15-29RENAL FAILURE: <15 ID Date Data Source [id number] 03/12/2021 10:26:00 PM EDT [facility] l DATE OF EXAMINATION: 03/12/2021 20:16 ED T CHEST 1 VIEW HISTORY: Altered mental status TECHNIQUE: Single frontal radiograph of chest COMPARISON: None. FINDINGS: No evidence of focal consolidation, pneumothorax or large pleural effusion.Lungs are clear. Mediastinal structures are unremarkable. No aggressive osseouslesions. IMPRESSION: No focal consolidation. Electronically signed in [id number] by: Ambrosio Ahumada M.D. 03/12/2021 22:20 EDT Name Value Range Interpretation Code Description Data Verna rce(s) Supporting Document(s) ID Date Data Source [id number] 03/12/2021 09:33:00 PM EDT [facility] TSYSORDER [id number] Name Value Range Interpretation Code Description Data Verna rce(s) Supporting Document(s) URINE RBC 0-2 /hpf 0-3 [facility] URINE WBC 1-3 /hpf 0-5 [facility] URINE EPITHELIAL CELLS 2+ /hpf 0 [facility] URINE BACTERIA 1+ NONE SEEN H [facility] URINE AMORPHOUS SEDIMENT 1+ [facility] ID Date Data Source [id number] 03/12/2021 09:27:00 PM EDT [facility] ital TSYSORDER [id number] Name Value Range Interpretation Code Description Data Verna rce(s) Supporting Document(s) URINE COLOR. [facility] URINE APPEARANCE CLEAR [facility] l URINE GLUCOSE (UA) NEGATIVE mg/dL NEGATIVE [facility] URINE BILIRUBIN NEGATIVE NEGATIVE [facility] URINE KETONE 15(SMALL) mg/dL NEGATIVE [facility] SPECIFIC GRAVITY,URINE 1.015 1.005-1.030 [facility] URINE BLOOD TRACE NEGATIVE [facility] PH,URINE 6.5 5.0-9.0 [facility] URINE PROTEIN NEGATIVE mg/dL NEGATIVE [facility] neal URINE UROBILINOGEN NORMAL(0.2-1) mg/dL 0-1 [facility] URINE NITRATE NEGATIVE NEGATIVE [facility] URINE LEUKOCYTE ESTERASE 1+(SMALL) NEGATIVE [facility] ID Date Data Source [id number] 03/12/2021 08:50:00 PM EDT [facility] l TSYSORDER [id number] Name Value Range Interpretation Code Description Data Verna rce(s) Supporting Document(s) HCG URINE NEGATIVE NEGATIVE [facility] ID Date Data Source [id number] 03/12/2021 09:26:00 PM EDT [facility] TSYSORDER [id number] Name Value Range Interpretation Code Description Data Verna rce(s) Supporting Document(s) URINE AMPHETAMINES NEGATIVE <1000 ng/mL [facility] pital COCAINE, URINE NEGATIVE <300 ng/mL [facility] THC,URINE NEGATIVE <50 ng/mL [facility] URINE BENZODIAZEPINES NEGATIVE <300 ng/mL [facility] URINE,TCA NEGATIVE <1000 ng/mL [facility] IF A NEGATIVE RESULT IS OBTAINED AND ING ESTION OF TRICYCLICANTIDEPRESSANTS IS SUSPECTED, A SERUM SAMPLE SHOULD BEOBTAINED AND TESTED USING AN APPROPRIATE METHOD. URINE BARBITURATES NEGATIVE <300 ng/mL [facility] ital MDMA NEGATIVE <500 ng/mL [facility] URINE,OPIATES NEGATIVE <300 ng/mL [facility] PCP,URINE NEGATIVE <25 ng/mL [facility] OXYCODONE URINE NEGATIVE <100 ng/mL [facility] l PROPOXYPHENE NEGATIVE <300 ng/mL [facility] THESE TESTS ARE PERFORMED USING AN IMMU NOASSAY FOR THEQUALITATIVE DETERMINATION OF THE PRESENCE OF THE MAJORMETABOLITES OF DRUGS OF ABUSE. THESE TESTS ARE ONLY ASCREENING AND NOT CONFIRMATORY. CLINICAL CONSIDERATION ANDPROFESSIONAL JUDGMENT MUST BE APPLIED TO ANY DRUG OF ABUSETEST RESULT. ID Date Data Source [id number] 03/14/2021 12:05:00 PM EDT [facility] Name Value Range Interpretation Code Description Data Verna rce(s) Supporting Document(s) Request Problem [facility] Test not performed. Gel barrier tube uns uitable for test ordered. TEST: [id number] Lamotrigine (Lamictal), Serum ID Date Data Source [id number] 03/12/2021 09:28:00 PM EDT [facility] TSYSORDER [id number] Name Value Range Interpretation Code Description Data Verna rce(s) Supporting Document(s) PARTIAL THROMBOPLASTIN TIME 23.8 SECONDS 21.2-27.3 [facility] ID Date Data Source [id number] 03/12/2021 09:28:00 PM EDT [facility] TSYSORDER [id number] Name Value Range Interpretation Code Description Data Verna rce(s) Supporting Document(s) PROTHROMBIN TIME (PATIENT) 11.5 SECONDS 9.1-11.6 [facility] INR 1.11 0.87-1.06 H [facility] ID Date Data Source [id number] 03/12/2021 09:28:00 PM EDT [facility] TSYSORDER [id number] Name Value Range Interpretation Code Description Data Verna rce(s) Supporting Document(s) WHITE BLOOD COUNT 11.1 K/mm3 4.0-10.0 H [facility] neal RED BLOOD COUNT 4.86 M/mm3 4.00-5.50 [facility] HEMOGLOBIN 15.3 gm/dL 12.0-16.0 [facility] HEMATOCRIT 39.8 % 36.0-48.8 [facility] MEAN CELL VOLUME 81.9 fl 80-96 [facility] MEAN CORPUSCULAR HEMOGLOBIN 31.5 pg 27.0-31.0 H [facility] MEAN CORPUSCULAR HGB CONC 38.4 g/dl 32.0-36.0 H [facility] RED CELL DISTRIBUTION WIDTH 11.0 % 10.0-14.5 [facility] PLATELET COUNT 415 K/mm3 172-450 [facility] MEAN PLATELET VOLUME 9.6 fl 9.0-13.0 [facility] pital GRAN % 79.4 % 50-80.0 [facility] IG% 0.2 % 0.0-0.2 [facility] LYMPH % 13.0 % 25.0-50.0 L [facility] MONO % 6.6 % 2.0-10.0 [facility] EOS % 0.4 % 0-5.0 [facility] BASO % 0.4 % 0.0-2.0 [facility] GRAN # 8.8 K/mm3 2.0-8.00 H [facility] IG# 0.0 K/mm3 0.0-0.2 [facility] LYMPH # 1.5 K/mm3 1.0-5.0 [facility] MONO # 0.7 K/mm3 0.10-1.20 [facility] EOS # 0.0 K/mm3 0.0-0.5 [facility] BASO # 0.0 K/mm3 0.0-0.2 [facility] ID Date Data Source [id number] 03/12/2021 09:18:00 PM EDT [facility] TSYSORDER [id number] Name Value Range Interpretation Code Description Data Verna rce(s) Supporting Document(s) TSH 4.944 uIU/mL 0.358-3.74 H [facility] ID Date Data Source [id number] 03/12/2021 09:17:00 PM EDT [facility] TSYSORDER [id number] Name Value Range Interpretation Code Description Data Verna rce(s) Supporting Document(s) ACETAMINOPHEN LEVEL < 2.0 mcg/mL 10-30 L [facility] ID Date Data Source [id number] 03/12/2021 09:17:00 PM EDT [facility] TSYSORDER [id number] Name Value Range Interpretation Code Description Data Verna rce(s) Supporting Document(s) ETHYL ALCOHOL 0.00 % 0-0.01 [facility] ID Date Data Source [id number] 03/12/2021 09:17:00 PM EDT [facility] TSYSORDER [id number] Name Value Range Interpretation Code Description Data Verna rce(s) Supporting Document(s) SALICYLATE < 3.0 mg/dL 2.8-20.0 [facility] ID Date Data Source [id number] 03/12/2021 09:17:00 PM EDT [facility] TSYSORDER [id number] Name Value Range Interpretation Code Description Data Verna rce(s) Supporting Document(s) LIPASE 103 U/L [id number] [facility] ID Date Data Source [id number] 03/12/2021 09:17:00 PM EDT [facility] TSYSORDER [id number] Name Value Range Interpretation Code Description Data Verna rce(s) Supporting Document(s) MAGNESIUM 2.1 mg/dL 1.8-2.4 [facility] ID Date Data Source [id number] 03/12/2021 09:17:00 PM EDT [facility] TSYSORDER [id number] Name Value Range Interpretation Code Description Data [facility] rce(s) Supporting Document(s) GLUCOSE 110 mg/dL 74-106 H [facility] BLOOD UREA NITROGEN 17 mg/dL 7-18 [facility] ital CREATININE 0.95 mg/dL 0.6-1.0 [facility] SODIUM 127 mmol/L 136-145 L [facility] POTASSIUM 2.7 mmol/L 3.5-5.1 *L [facility] CHLORIDE 80 mmol/L 98-107 *L [facility] CO2 41 mmol/L 21-32 H [facility] CALCIUM 10.1 mg/dL 8.5-10.1 [facility] ANION GAP 6.0 mmol/L 5-12 [facility] GLOMERULAR FILTRATION RATE 69 mL/min [facility] GFR IS CALCULATED IN mL/min/1.73m2 VAL[facility] L FUNCTION: >90MILDLY DECREASED: 60-89MILDY TO MODERATELY DECREASED: 45-59 MODERATELY TO SEVERELY DECREASED: 30-44SEVERELY DECREASED: 15-29RENAL FAILURE: <15 AST 31 U/L 15-37 [facility] ALT 21 U/L 12-78 [facility] ALKALINE PHOSPHATASE 61 U/L 46-116 [facility] pital TOTAL BILIRUBIN 1.2 mg/dL 0.2-1.0 H [facility] TOTAL PROTEIN 8.3 g/dl 6.4-8.2 H [facility] ALBUMIN 4.3 gm/dL 3.4-5.0 [facility] ID Date Data Source [id number] 03/12/2021 09:09:00 PM EDT [facility] TSYSORDER [id number] Name Value Range Interpretation Code Description Data Verna rce(s) Supporting Document(s) LITHIUM 0.60 mmol/L 0.6-1.20 [facility] ID Date Data Source [id number] 03/12/2021 09:09:00 PM EDT [facility] TSYSORDER [id number] Name Value Range Interpretation Code Description Data Verna rce(s) Supporting Document(s) AMMONIA 11 umol/L 11-32 [facility] ID Date Data Source [id number] 10/20/2020 04:13:17 PM EDT [facility] Name Value Range Interpretation Code Description Data Verna rce(s) Supporting Document(s) Discharge Summary [facility] [id number]/FARaxMJUmb8LaDTgeNNx0NNrbHGJuR8CfJET8xU9dSDI9UMtGEaCxUvYkCTOf [facility] [file] E+DQogICAgICAgICAgICAgICAgICAgICAgICAgICAgICAgICAgICAgICAgICAgICAgICAgICAgICAgIC AgICAgICAgICAgICAgICAgICAgICAgICAgICAgICAg ICAgICAgICAgICAgDQogICAgICAgICAgICAgICAgICAgICAgICAgICAgICAgICAgICAgICAgICAgICAg ICAgICAgICAgICAgICAgICAgICAgICAgICAgICAgICAgICAgICAgICAgICAgICAgICAgICAgDQogICAg ICAgICAgICAgICAgICAgICAgICAgICAgICAgICAgIC AgICAgICAgICAgICAgICAgICAgICAgICAgICAgICAgICAgICAgICAgICAgICAgICAgICAgICAgICAgIC AgICAgDQogICAgICAgICAgICAgICAgICAgICAgICAgICAgICAgICAgICAgICAgICAgICAgICAgICAgIC AgICAgICAgICAgICAgICAgICAgICAgICAgICAgICAg ICAgICAgICAgICAgICAgDQogICAgICAgICAgICAgICAgICAgICAgICAgICAgICAgICAgICAgICAgICAg ICAgICAgICAgICAgICAgICAgICAgICAgICAgICAgICAgICAgICAgICAgICAgICAgICAgICAgICAgDQog ICAgICAgICAgICAgICAgICAgICAgICAgICAgICAgIC AgICAgICAgICAgICAgICAgICAgICAgICAgICAgICAgICAgICAgICAgICAgICAgICAgICAgICAgICAgIC AgICAgICAgDQogICAgICAgICAgICAgICAgICAgICAgICAgICAgICAgICAgICAgICAgICAgICAgICAgIC AgICAgICAgICAgICAgICAgICAgICAgICAgICAgICAg ICAgICAgICAgICAgICAgICAgDQogICAgICAgICAgICAgICAgICAgICAgICAgICAgICAgICAgICAgICAg ICAgICAgICAgICAgICAgICAgICAgICAgICAgICAgICAgICAgICAgICAgICAgICAgICAgICAgICAgICAg DQogICAgICAgICAgICAgICAgICAgICAgICAgICAgIC AgICAgICAgICAgICAgICAgICAgICAgICAgICAgICAgICAgICAgICAgICAgICAgICAgICAgICAgICAgIC AgICAgICAgICAgDQogICAgICAgICAgICAgICAgICAgICAgICAgICAgICAgICAgICAgICAgICAgICAgIC AgICAgICAgICAgICAgICAgICAgICAgICAgICAgICAg VQWdFPOrTJNpLNKnPHSsTEIuVEQnGXf0U7stQSWiNMCqHB8lBNh9Jh4+XCbNMwYpHSW2bfZaeL7AKV1p e0QlCAixNFJqt8VcSEl3II9KNUZoUObhKT2VGNjoxj8HQZMrELRklONSf2mhZgVdEPL3RSLqZmepOK2Z CRVzN7wrikElNXOdNHPSASjfEAXAMGpsTYWJVYNxOI YfNvVsLlVdWFZkDUEbORWIKOG3KMZsYyIsTCUhWHLeTsJtJZAYIWDdFLTuWeWaVEMnJGOyQO8EIFNqS4 44qgWqDNGFCn4+FVjfuqYwDdfASuVsUGPfd6RoVWf3IJ6CJXOsVovfm3JgQaYhFHOIMGgeTQ0NLTW8XE AlMLHfIx5WMSGeL193ghErLA7DNq3QZsCtTX9deh9M JcFaMPSuYdpMTxn1TPsjOA7OuGJqFPtVyKMqbDPhZ1FoB5CvkRNxxNSbjHXUrAVbeA0xN3uclgzfSNQp MCOnXL8aAS6qNMEgRDC7RaL3QBQBTG5JVLRhFRVzzQQlZELdPCAXEA4HLAqcRXH0EFEffdSkmXMfPTbq BX0EFCYjhpTmMrWoIWBUZOr+Pc2MVW8bw2WqEWe5FK MgKW8ufv8USYkCYxPnH0E2iNUoJ6A3BTucZt0GJQXpDDEeKrWjJOPCRZsxSO8FUF7rerG0GZ3OoABnXM IjKUKskLMxEVt8O34jbGDaIZsoVQ9MZZL+Reece+Ec0GPFHtIHIeYEZnStUaGFQHXdXzB8XiO0PMr6SzC7 ScXZ26aGgvghXuXUpzBQ3GLO9sSIAxLLVXCA2PiWTc xX9gghB4EeFgPZKWZoKpC71iuABtTFZgCAVbBHFiZe0DFLOhU1KophVdpGwvxbGgADRvVVXEIP4TXOhl dzLsbTHwhNesMS63wXvvHH1YHz6HPwDxQK8vid9XuSOsRn2TYBL3FX4NSLRbUBRmLJSkTMM8SZVdLuVo UIikPIAkKXWhULY0UHHzAJEzLH8SWdLxPMXmAuS0WX HwWVCjMTCvdo0QGTLyUAN2HKN7KbSeWBRcFRUpQBidXXQdBYWjBXY0GHFiRGVzQF8BKyNrTMAxTCY1LP wbDVNqXWQfqm5UWWPnWAFvAOOmZjIyEBDqPVTwEVupNNFbVUX7RmX1SVOoMMHdKO4UTrOnMVAzJRv7HB nuMNVpAOUzxf5WQGXqWCHvYQf7TqNlYOXgCAMzGZbx TRUdJVXqPJQ1LDStRFIwXL2YBoFtNQZcAXFdZbCzPHHsGDHwlb6OHTKmFVBbANO0DHJxVKXcNKFyRNbj MUNrWMQ4ZXf3GOCwQIAaKW7ZBgOaFDOwQBu6PZBzQUGqTPVnts8XPWMvHRYuEoE6IxVzZAKqATWmDPdc NHBzUNOgZNN3AVPwPJHqXU6CHyOxWJAvWcXiXLCqRF NfCXVlbb1FGWDcEYVlAfJ5NxAlXACyTTNvBEumHQHpNOO3LhX6IIKhTAWcEG1WXcBcTRSuVdj8IDShQD TnELConw5OOGDaQKWpGVPqCMLgMRInXULvBUlsWRQyFEIrIMMoDBWpPFJwHV1TUkPkGXEcThE4PJVfKP NqERDwii8MYQCnHHAjUQOfQBYaEEEvBLDtHNmhKXLz BEO5VSSpKAKmRRTjWA2UZcYlJIKpXue4YUYlVVUgIMImre2FSLZqKADeBFHqDlPoFFTbGIGeAYdeGPMs BUJ7UOJvFGGdBJIoFD7DDcEmHYWsSow1PAHuGSPnJCOfgo6LLXRoFRY0FMx3LDBbUZJsFLJmNGecQGBi DPMyJRL5VZKtOQAxYP3SQaIyPTNzONFxNoFmADLiGU Tzvf1UQZGlOUH0MqZ7TCPhKURwYNHoKOqnKGDcPZItQZa5LPYoJAOrVE8VArLmJYBzVJH8XHCdWGBlZK Linn0GOWTiQNZ8AbT1AJGwWYOmCOJmCKvfRQYyCRIfALZaKIRcVUUkVG5PPwShQPVkTHWwMdDnRDIqWA Btvl7OUBGfDAK6QEh8QQYlYZBtEOSpWZsrBAGzPQT4 UGe6LQPqQBAxHU8DPgAsEOMiTOTiBwmsMZEcMESwjf7FUDAnOFQ1Qwq1SfWaTUFjYAReYMxvIPNzAML5 IUxyOUKbSFHkBP7WCoLmZHNvGQhvICIzURYvCTKebq3WQQKiXLP5PdThVLRpUYXxMZBeGLwrLQOyHWU3 Qkx7JSWgBEZvLJ2OZwLaSEHwFjA8IyDxWKKuMRJcpw 2MMAPbLED3Rya1HMNcILMdJJNuSXbsLCMkPXRmUVWxLQTdVRByRA0JRtCpYATdVpNsCPDcHISjMVCvgh 9PLGMxBCM3MkQ7YEPpBNUqERTuXIqeDAAbUDX5UkbdIXUtIOIlUP4OKhNyXVVjEnU4YMQpBXPoGRUzig 3AWXDxQKM6MGa4OuAoZYLvNVLlFCfgZYHiICC1PEx6 ANKgOBKkII3BDpUcZTMuVsVoVzsdXPBqSSLmwy0URIUrAKK1MYP4EYHeWZIpDBGkBEzlYZRrVKL0WcWe GJLfEURyMJ7ZKcTnYDUuArR9MHDxHNZpIIMkiv0ZNAXePYQ0GlI8QKOcSAWxNKBcPPamGEDdMHY0CjUq FAHpFWUyBY5BCaZdXULxVbw6UXHcZQLbWGOvfv5MNR RlVWY7RBz1ADUnWHCpYGQhGGqlGOVoUAQ0KFUbGSVhKGZdZZ3ZAcWpWDjaJDZTPhn6SZhoS7u2IOO1PE 0SF8Ira7RzSvWbBTBQQOakOM5pdmRiZTIpZs4DU6sOBlocUGaiETM7GyI6VwS2MaK9AUD1IVN1CYM6Jw FvDQUvUK4aNCUnVHZ8DlscDqR4LYOvKRVpFgU1UnMt Ofq5DJGiAAQcUqTkIF3NDp2ZXeJ9FMU9ePUbLe8BQkqjBsJXFfPpMS3RWWs= ID Date Data Source [id number] [facility] Code Description Data Verna rce(s) Supporting Document(s) Amenia [Moles/volume] in Serum or Plasma 0.72 mmol/L 0.60-1.20 [facility] ID Date Data Source [id number] 10/17/2020 08:26:03 AM EDT [facility] Name Value Range Interpretation Code Description Data Verna rce(s) Supporting Document(s) Amenia [Moles/volume] in Serum or Plasma 0.50 mmol/L 0.60-1.20 L [facility] ID Date Data Source [id number] 10/17/2020 08:18:27 PM EDT [facility] Name Value Range Interpretation Code Description Data Verna rce(s) Supporting Document(s) Calcidiol [Mass/volume] in Serum or Plasma 36 ng/mL >30 [facility] ID Date Data Source [id number] 10/17/2020 08:33:04 AM [facility] Value Range Interpretation Code Description Data Verna rce(s) Supporting Document(s) Thyrotropin [Units/volume] in Serum or Plasma 1.710 u[IU]/mL 0.270-4. 200 [facility] ID Date Data Source [id number] 10/13/2020 06:35:11 AM [facility] Value Range Interpretation Code Description Data Verna rce(s) Supporting Document(s) Leukocytes [#/volume] in Blood by Automated count 8.5 10*3/uL 4-10 [facility] Erythrocytes [#/volume] in Blood by Automated count 3.99 10*6/uL 4.1- 5.3 L [facility] Hemoglobin [Mass/volume] in Blood 12.5 g/dL 11.5-15.5 [facility] Hematocrit [Volume Fraction] of Blood by Automated count 38.6 % 3 6-45 [facility] Erythrocyte mean corpuscular volume [Entitic volume] by Auto mated count 96.8 fL 80-96 H [facility] Erythrocyte mean corpuscular hemoglobin [Entitic mass] by Automated count 31.2 pg 27-33 [facility] Erythrocyte mean corpuscular hemoglobin concentration [Mass/volume] by Automated count 32.3 g/dL 32.0-[facility] width [Ratio] by Automated count 13.5 % 11.5-14.5 [facility] Platelets [#/volume] in Blood by Automated count 350 10*3/uL 150-400 [facility] ID Date Data Source [id number] 10/13/2020 07:12:18 AM [facility] Value Range Interpretation Code Description Data Verna rce(s) Supporting Document(s) Cholesterol [Mass/volume] in Serum or Plasma 151 mg/dL <200 [facility] Triglyceride [Mass/volume] in Serum or Plasma 50 mg/dL <150 [facility] Cholesterol in HDL [Mass/volume] in Serum or Plasma 60 mg/dL >50 [facility] Cholesterol in LDL [Mass/volume] in Serum or Plasma by calcu lation 82 mg/dL <100 [facility] Cholesterol in VLDL [Mass/volume] in Serum or Plasma by calc ulation 10 mg/dl 16-42 L [facility] Cholesterol non HDL [Mass/volume] in Serum or Plasma 91 mg/dL <130 [facility] ID Date Data Source [id number] 10/13/2020 12:33:09 PM EDT [facility] Name Value Range Interpretation Code Description Data Verna rce(s) Supporting Document(s) Choriogonadotropin.beta subunit [Moles/volume] in Serum or Plasma <5 [facility] ID Date Data Source [id number] 10/13/2020 07:05:47 AM EDT [facility] Name Value Range Interpretation Code Description Data Verna rce(s) Supporting Document(s) Hemoglobin A1c/Hemoglobin.total in Blood by HPLC 4.9 % 4.0-6.0 [facility] Glucose mean value [Mass/volume] in Blood Estimated fr om glycated hemoglobin 94 mg/dL <126 [facility] ID Date Data Source [id number] 10/13/2020 01:47:15 PM EDT [facility] Service Cmnt XXX-Imp : NoneMicroorganism XXX Cult : Sky Cap Mediated Amplification(TMA) is NEGATIVE for Neisseria gonorrhoeae AND NEGATIVE for Chlamydia trachomatis. Name Value Range Interpretation Code Description Data Verna rce(s) Supporting Document(s) ID Date Data Source [id number] [facility] Interpretation Code Description Data Verna rce(s) Supporting Document(s) History and Physical [facility] JDRFTi2nLdXFIwGr75/ILTrpDTRsh8EkUIxdMMc1WFfuYTXzR8IcBMQ3lH7hXCY0VAlBUiYyAtIwOBJd lbm [file] ICAgICAgICAgICAgICAgICAgICAgICAgICAgICAgICAgICAgICAgICAgICAgICAgICAgICAgICAgICAg ICAgICAgICAgICAgICAgICAgICAgICAgICAgICAgDQ ogICAgICAgICAgICAgICAgICAgICAgICAgICAgICAgICAgICAgICAgICAgICAgICAgICAgICAgICAgIC AgICAgICAgICAgICAgICAgICAgICAgICAgICAgICAgICAgICAgICAgDQogICAgICAgICAgICAgICAgIC AgICAgICAgICAgICAgICAgICAgICAgICAgICAgICAg ICAgICAgICAgICAgICAgICAgICAgICAgICAgICAgICAgICAgICAgICAgICAgICAgICAgDQogICAgICAg ICAgICAgICAgICAgICAgICAgICAgICAgICAgICAgICAgICAgICAgICAgICAgICAgICAgICAgICAgICAg ICAgICAgICAgICAgICAgICAgICAgICAgICAgICAgIC AgDQogICAgICAgICAgICAgICAgICAgICAgICAgICAgICAgICAgICAgICAgICAgICAgICAgICAgICAgIC AgICAgICAgICAgICAgICAgICAgICAgICAgICAgICAgICAgICAgICAgICAgDQogICAgICAgICAgICAgIC AgICAgICAgICAgICAgICAgICAgICAgICAgICAgICAg ICAgICAgICAgICAgICAgICAgICAgICAgICAgICAgICAgICAgICAgICAgICAgICAgICAgICAgDQogICAg ICAgICAgICAgICAgICAgICAgICAgICAgICAgICAgICAgICAgICAgICAgICAgICAgICAgICAgICAgICAg ICAgICAgICAgICAgICAgICAgICAgICAgICAgICAgIC AgICAgDQogICAgICAgICAgICAgICAgICAgICAgICAgICAgICAgICAgICAgICAgICAgICAgICAgICAgIC AgICAgICAgICAgICAgICAgICAgICAgICAgICAgICAgICAgICAgICAgICAgICAgDQogICAgICAgICAgIC AgICAgICAgICAgICAgICAgICAgICAgICAgICAgICAg ICAgICAgICAgICAgICAgICAgICAgICAgICAgICAgICAgICAgICAgICAgICAgICAgICAgICAgICAgDQog ICAgICAgICAgICAgICAgICAgICAgICAgICAgICAgICAgICAgICAgICAgICAgICAgICAgICAgICAgICAg ICAgICAgICAgICAgICAgICAgICAgICAgICAgICAgIC IxIUBaAWAqRPo4Y9cdCFMeTNHyFQ1zSQp3Yk4+WHaYWvXwWDY2wjUgzW7CUH7hp3DkZVuoPDCfj5ZuKW t5EC3OWEZuTZjfCV8XBSlrpr1WWUEgKRSydRIGf8muQnUxEBA8QKZvVnanTH8LEOGjX6rxpoExRVHdPX LRFEiiDPYWFSanVXOFUIQaVAXyXoZtGtBmPCCsKM3J HLKqI874rtOzDM6OBf2SLcAjTW5ozz6DVwYlXJTaKvrEAbb4TAnzIO8MbHHhlOYrLaIsONMABkUeQ6hi h1DeWkznKCYFBMdqBO5Mm5AcbKUmEEb+Ux6KBZ6ni2HgAPfiFaEwAU3etg1IZCxYLuAaK3DlhAswOAci GTBlzGVLUCK4rVL2WYydA2MeswEtTZCPFGEdyEI6Bz ExWsMwPeJgJHF9AlGmTD8fESlpNQ3LZMD4QPwjQEIcKVHmV0bTNpClPQSbPbOkqQpaNF3XNmMnW0Ftnr VudCAzNiAwIFINCj4+IUmtauCgIwpHNnT6QLWma1QoSNv7VD7CDPNjSIaoGQ3PWLAkkB3bSJzwSB1VIh LyFNSsTCWODnVuN87njJOaVJq9U2SoVjKwQJBqGecx ZXMgPDwvTmFtZXMgWyBdDQogID4+ID4+SOdhGZ7TLUrgvoAaRBRzYc7MKZIvEVLtCQ8rEWTkSTXfG8D7 iTvuFGERNxSoE6yckkgaRF9cIQVfM988tPppfsVzYTQ2IACqGb8YUAGgRRX8BJCakOUhRgBvNAIOLHyw SH5OoROjTZV6yD0xSNpwYZTwEBFnK7jECmDkmGbeYO 51bGwgbnVsbCBdDQo+Qo9KEI4ah2PvEBr6rqUjXJiiBNS5UOwtMEOkMNMxHOTuBSI7ZVH4GGJPUuOcWV OeAHEbHMvcHXKeOQWcmh8VQDHnCCFtUQS7TVXhYJDyELPrMDmkTEEvVIMwSXD6PSJsKPFbMU0SLkMvZQ QtKWEtJOccWDHlXSUjpy4KAQXjCGTuEdywIkMbPMVj VCNzOWemHMNuCBFkPVC4JBKjNCLyQT2DRdWtMBFoLXS1MwYzUGMdQNXlru0QHWVcDJDrZHBcTCZsUPLu PYVkEZioGBTqJOE2Iue9XZMyCBYxGF2QPzDbYIYiBNk0LLSdSEEcNBDudk9BROPaUWUiFLw4AHGzSWZf QFBnGUpoYFZdJFDfFpOjMJIuWEUsDW2OAhGqRJIyFV T2NaurFXBxVJQbpn4LMFOuFKYgPaR9VuAyJENpTFZtMNmuQWBrWVYrVJWnTBNmPDFpLV4CDfPlZIVpPO XfGQQxNFHmKMJwna3URYKrATEiDoZkRcIhJXDpUKPxJBxwZYApSTT6FMfoVDErVZBaNN7SAfKaOSJfRR N0EOCtICMqTGAwtu0KJKOzQXQzYMw7BoWqZOKkGWXz LFeqIFQhLDN8JMKsRUGrHMVtPE0JGlBzTDPpFOQwSkafTPUkUTSmxe7YMDQoOUHeXlBzCaUlUUEkXNHl UOcyOCFmIGL3ZHt4ETXbXKYhID4GRyZiSQFyXlg5RWGrVIOnLWPvgh4VSQAjSHNqKCWbOCFhLZYkAEKc EHsaMTGpVQV5EuBxTIUkPSIsKC2YBzFfYTMmUgv0GY vyFMBuOIShox6IJDFqKUXrAKO7EqJzEHVcSWQjEXunVOFgNKZ1FaMvQXZmFCJhMY8EIqGsHNPnHwb8WO fyZAHcJRCzgq1CMVNhOGOcPNv9KtJxESKqFIKbGGwxUQNiFSUyWPA1HKLhPZZzMM6LKvTkZZVcZkFaLq ihASJjKEHsek5EUXWgEDTaZJD3XvUyVZBkFNQuFGwv HAHwXYSdLVEnKCGfXZCbMC0KQeXnLEFtVkHjNpPeOOKnGGRima7VTKNoXVUmMpR6OoMwKRNmBHOwZAg7 foDphLZjOSt3RN9PI9RkebIuWauUKm2Lb275TUG8MVVpMn4YW1beTp6cYCTwLAZCBp8QUUq0YyTlAgsb OMf9N0G6SJT0UTExBGk0IyMfFCQ4BCwqOeQ+IDxiYj NjZTRuIwUuYta8YmwwCbK2QePuEkY2CnK3FBRxHE7tVMWFAf3+RZpqbGMhtNjqVJPAIiKqWSQ3FTgeWU VPRg0K ID Date Data Source [id number] 10/11/2020 01:38:32 PM EDT [facility] Name Value Range Interpretation Code Description Data Verna e(s) Supporting Document(s) History and Physical [facility] DFDKUt4vRcDALeCi10/GTStbDYHzs2WrQYtrUFc7WWetTPAaD4UwTWZ5aD3bGFT4MSpUAqWlAzQgSIBw lbm [file] AgICAgICAgICAgICAgICAgICAgICAgICAgICAgICAg WQCdJEEuLHQyCEAtDCKzCWMtQMAwJNCaNRTdZJFjWJJqLBGcEJClCPFrFQTfJN9PCZNwOLIiOTJsICXf ICAgICAgICAgICAgICAgICAgICAgICAgICAgICAgICAgICAgICAgICAgICAgICAgICAgICAgICAgICAg VBTlWMEoVCHbRAIbWWXjSYGwNEJvPMNwRAJdWE9GTS AgICAgICAgICAgICAgICAgICAgICAgICAgICAgICAgICAgICAgICAgICAgICAgICAgICAgICAgICAgIC XcJDOtLRDbLJXwPAHmJTMtSCVqMXYxXAPfMWOdZWToNTOmSBZiNE1VCJLbICSeFPZtPARsNQSlTBWtYT AgICAgICAgICAgICAgICAgICAgICAgICAgICAgICAg MDRdVZKwEVIlVXEvGZKuNWZtAMVdZKScCCLcLUUgPSOhSJNnSAOfBNYoLECvDVNlGY2BMDScIYCcKJYm ICAgICAgICAgICAgICAgICAgICAgICAgICAgICAgICAgICAgICAgICAgICAgICAgICAgICAgICAgICAg ICAgICAgICAgICAgICAgICAgICAgICAgICAgICAgIA 0KICAgICAgICAgICAgICAgICAgICAgICAgICAgICAgICAgICAgICAgICAgICAgICAgICAgICAgICAgIC MaHSVqTOMoEZDlPJSiLHGtCVIdAVVqSNNfFVFbYOLdVFOpTQZyIUTlLL8YVCMvANAeBZHhDNXcBBGlRC AgICAgICAgICAgICAgICAgICAgICAgICAgICAgICAg KNQiIUFvPLZtKLBoOMBrBXGrPTJsFXAtNUGoUAMwLTDxTIXsNEGlYAAgSXBbLINaNVXxDZ5ZWRXrMRZr ICAgICAgICAgICAgICAgICAgICAgICAgICAgICAgICAgICAgICAgICAgICAgICAgICAgICAgICAgICAg ICAgICAgICAgICAgICAgICAgICAgICAgICAgICAgIC MeSR8FNRMdUVZoRWOrJIAaTBGxAMNiGULpRQLdKPOvTHUtSSCgOPCdHHCmVLAyDBRpWYHrNVEnOJOpYU SwJHQxFXYvGYXpAHDsREOlUNQpQBKkJAYlSTMkDYZhTYCiOZJiKOZmGTLaGO8OXYRoUYTvJAGkQWDgJF AgICAgICAgICAgICAgICAgICAgICAgICAgICAgICAg XGFrGICkANBxIFHiJODwWWMgWJMlYLWpDUDmKNHkXRDaWGZeIPSsOBZvUKQmEGChOEFrAHJmGZ0UKB57 aHEev1F8SLCmNX0mdim/Bb5TKSuumpArkABpZF8UWrBmLH8hxt5GEeSuUH6lry3BDCaRCfQeW1J5tAUo JUYhKNKJEzIrM17jKKdwXu15RKycAVXzHuRfQYw7Ev 7PDdQnM7ziBQFpBbG1YKCdMzP4XKNxIbV8CBEiUnXrJBBzTOUzVZWaNAJPBRI0ALFcAwPdWdKsWFCcHO 3QJQUbM517avJnAr3ZYs1XCoUpXG1ujd9IYTViIHJuXcuSXhg8MJbsQH0EcOIjyOG7BEDcJXYXIpVjD6 loc6HwUNKvEAJDFYqnGB4Aa5IlyYYaFTf+Fr8HDG1o d6AuBMa3IOLnWH3vvd1PZOvOGkRuH0BlpUksOHquCIPgnWGEsMXdxOKsBGRkaAe7MXBIEOVeaTT2LsSk FwNlMxUvOZu7DRBuQX6kBLqmHO5JRWL7YKhjUVYmCTHrO1aYPiOwUIWhGxYphGmbVT1GNoUzQ0MbfwIc iHT1FmKiPZOXIb8+NRervhByHxqVNsP0EYSks3NjLB n9DB7JQNOkPCjlFU4AREAvqZ4yNZpqMQ3DUwZ1KFVkKGNJEnLxD54bcGFtSCq9S4XzJxRdJUTjZshxHU MgPDwvTmFtZXMgWyBdDQogID4+ID4+HAgxUS6NLTuyroOaKXNqVa8JRBLkOHRtPE5mIKUcSMYtD8H2eI lsRMRVWsLgI7tdzrobKK8lDGUyB804jDqxqpVdDARl NNCkEs0UNHMeXZL3KJPigMSkMMZkXQRAMAhiEI0BlZAtAJJ5gP4sBMssVYFtPGJmE7uUYvGnmZndFK06 bGwgbnVsbCBdDQo+Zz7NVK7tf4UtNHr3yeJfJBsfGXZ8VUlcWEKuGIPlHUNmNNC0HPJ7QKJSHhPgCZQc WXQjHSnnDALaDIPxsi7CQRJeIPUrCYB3DiLtLREePU YwUBkgBZVuMAM4NEW3EIBjSUAyBC9QVpCzVXWsFYGdLKwzOWRjLVLkbz3VLYLkVJKnSZO2RYTyXAZiUC QkLZgaQDAaCCX5Auz1IWYlOUYdDK6MFfCvTOLaLDplLZRtSPVlCHEdir5XSWLnDMUpFuLmOXPrVPYwPV DrBQaeZHVfYFQhVxPqDZVxSEDlEN7GIfXoWWNmFIN7 WvThBUXjKTVcxg1BQQZcZCKaJJM2FoOiXAVcYQFjLTzaJPYsNMY7Fox7WNZkSQBgAS0AVaNvIIDrRKk5 AsgzNLHuQUFxiw6XHOZxTIUdFcl1NRRgIRCkRVPxPCdmIMCySHNeEOAkHFQvVIIiFX5HAuGaTLYdUaRj LMepRRCpVLOvtc4BDMPfMDCtETjvVqAeXTRqWPQrKK zbPQTqVJQgPKSoMVYlUVVySV5ILjErSPLpQgMwFTHkFMAaLGMvkr0HPNGqMEIvUvX8TRUvGYMmXCKoKD ajYLJyFBYmDHQtPDHlOBMnNM4QPrWeVNWvOmD8FqBsAOJwCUDzpv1NHKZnYZViBEZdSOGaLWJeVGXsWY gjYWLiLWL1SUPpZVHfIGFxJA7HOnYpJAVhVoS0DhFp RJQnWDCgaf2OQWWnPJFiJTf9YXOsSGDnZSEkJKpaDBByTDP3WPOsMDAsBBJyUR7FIhQzCTPpBlwrLJKt UPNtUCXzam3ROEXuXYChJtGoIfDhQJDaSKPkIMioEOVxBTU4RKU4RAHoYZXkCB8GLpGzBNQhXws5KqHj RUFlZVEomz8TTOJmHZVfQXR2LISoEIQiTCUwKUhlFB ZiBDP0BVH1QPKqLXJcQS4BXaNwWMIuNgK2GpWhACWzLISxwp2JVAGpBFDnRYK0FeWaFCPgXOHfXCdnGE QsNBU2IyM8NGHmYGBkNM2VOlYtILHrTpF2IQmbTMFdYUWblx9MKNHwBFAqDYB8NGKfKJYnAWTfRBgkDU HqAXN7HLheBPYdNCGmJJ8QWeWuWCHbAaChLMTrCMCr LZAwfp5YBTRdAFBeJBJ2GQFlLZThLBUzVAkaGPUiHMK3VeZ4GGUdQCGzLL6QTlDwUSSaNibjBFPrQKQn ENMbgr7GTMDePPIqQoR7MRLbNWWkLMNbWIvxPWIqPRM8RIUlIQUxCTIcLJ0QMeQlFZslHEZLFyb6QRfc M8n0BSI4Il1SS3Lxt3RkQSChCDZHWKnlIJ0zflYyYB PaPx9RA2rYItshD5M4H0J1GaC5UIL0CmW1WxNeJJe9QgM6XTHeOrI2Wb5nEMEwNaXlZdljAAkqAHIrQT UmQVTkKhHdQDXsXVXyAFzpZoFbML5WEf6YDkK0MGI8fDOrOb6MYby0YWFGBdQaNR3XNIi= ID Date Data Source [id number] 10/11/2020 11:22:27 AM EDT [facility] Name Value Range Interpretation Code Description Data Verna rce(s) Supporting Document(s) Consultation [facility] MHIUQr7sHaEAEzWt09/DCZfiFIMff6WdDBzdUVq7SNdxLREjK1SxNQD3hC6wOND8TLbJBySvWdDkGNLh lbm [file] ICAgICAgICAgICAgICAgICAgICAgICAgICAgICAgIC AgICAgICAgICAgICAgICAgICANCiAgICAgICAgICAgICAgICAgICAgICAgICAgICAgICAgICAgICAgIC AgICAgICAgICAgICAgICAgICAgICAgICAgICAgICAgICAgICAgICAgICAgICAgICAgICAgICAgICAgIC ANCiAgICAgICAgICAgICAgICAgICAgICAgICAgICAg ICAgICAgICAgICAgICAgICAgICAgICAgICAgICAgICAgICAgICAgICAgICAgICAgICAgICAgICAgICAg ICAgICAgICAgICANCiAgICAgICAgICAgICAgICAgICAgICAgICAgICAgICAgICAgICAgICAgICAgICAg ICAgICAgICAgICAgICAgICAgICAgICAgICAgICAgIC AgICAgICAgICAgICAgICAgICAgICANCiAgICAgICAgICAgICAgICAgICAgICAgICAgICAgICAgICAgIC AgICAgICAgICAgICAgICAgICAgICAgICAgICAgICAgICAgICAgICAgICAgICAgICAgICAgICAgICAgIC AgICANCiAgICAgICAgICAgICAgICAgICAgICAgICAg ICAgICAgICAgICAgICAgICAgICAgICAgICAgICAgICAgICAgICAgICAgICAgICAgICAgICAgICAgICAg ICAgICAgICAgICAgICANCiAgICAgICAgICAgICAgICAgICAgICAgICAgICAgICAgICAgICAgICAgICAg ICAgICAgICAgICAgICAgICAgICAgICAgICAgICAgIC AgICAgICAgICAgICAgICAgICAgICAgICANCiAgICAgICAgICAgICAgICAgICAgICAgICAgICAgICAgIC AgICAgICAgICAgICAgICAgICAgICAgICAgICAgICAgICAgICAgICAgICAgICAgICAgICAgICAgICAgIC AgICAgICANCiAgICAgICAgICAgICAgICAgICAgICAg ICAgICAgICAgICAgICAgICAgICAgICAgICAgICAgICAgICAgICAgICAgICAgICAgICAgICAgICAgICAg ICAgICAgICAgICAgICAgICANCiAgICAgICAgICAgICAgICAgICAgICAgICAgICAgICAgICAgICAgICAg ICAgICAgICAgICAgICAgICAgICAgICAgICAgICAgIC AgICAgICAgICAgICAgICAgICAgICAgICAgICANCjw/dPKwZ3ijlEVcntF7O9ivCf7PXn3IKM6ru2OuDL EuXFvoszXdOzmZRoLmIJLyJqdINeg5EQfyAW4BvSAuG1UbR8XtDSioLX7AOGSbRMSgzMAhSHLzAJQyUv I8TPJvUWreXF3RhUUbEVfwGDUkRRUmThUkCGZnJOBc IECzZUHkANYTHUOpJMCaSxWbXRdbQQ8Dz9RyoKH1VVd+Xj7NDE5cn8FeVLulByNyBU8zdz6YYRzYHhAn U6CuxeI9EFW5POShPy2HIKDkYIWdhVEiDPBiBXSTGnStO3RdnE63RGGDVm0+WSupwxDkSlmOWxO5CVFo q5YhUDt7GI9UCXPpENm9sTKyB98wt5CmaSHdDpjyQL IklWBlBCTcfuTdgh2gMXbOH4nvXZCrXU0jCo9lPVFbACVnMdEiGFLAXU3NUBSmYUCvnISzHNKrVPKGVK 8IOBjpYCH3GNYpzhWlvACpTGczMT5BPPFndcNuDctlFKCVMHk+Qc0CMS2nm9EoQXhfWNRrXF1ahu2RQJ gJBiQyM2O7iJCsU0G2DFgsVs3LSOUfALSvMaUkFGAR CJwjNQ0UWM3xpwK9JY5JvLHqRRPuPSUjxCYxCYl7J54laJXrQGkyZK2ACRO+Reece+Pm3CNJDiXFGtPZYi LzCkHVGJHnYfP0CkT5IFi3UbC3BwJL50tSeygtAbVSfzNT7VSY8lLNHaMGRJFA2UwUXjdP7nbkOwZcWh GFWWSdMrR13tjGMbIJOnKHP3VVSxVj8EWEYyQ2Mgnm RhdHwgpyRpBYFcCOCXGC1QABuwwsYvaAQpbIfzXA26cChbAZ2TJb9WTpCcSV2nqj0BqOBhBq8AGQEsWH 0KNAMeYIQmRAMqXHJ6TQAgDnRzFFycLNVlANKlFLY6TYVwLSMaGJ8ZWdYuKMMaGwKeEECoKXKnRSGjkt 2GHXCjNOOrTEb0WTJyFZPeONRzVRlxOXQrTFTuOSP9 OPXlTOWkFT1DUrMlOWUmIDU1TQPpKSJfPYBoeu9PLJRcCIFnCTK7EyLmVFKgUQEaOHbwIOAbMQF3RTr2 QNHfPFYrHT5FOfNhLZCvRIq4VLLzJWBkYBUwzl9PVLFpPOIaSKs0YYYxHDQsGOWgCMvnTIYmPOAqLVf4 SZHdMSJhFT8UOoLvFOXaXPJiHPYwBMSiOSQgse7DDX PyTOVzMYU3ICDuWJObUADuDVfvAGGsUMQ5HQTsRGMxZJMqEL4MHgEbTHZnQCzdNlsoRGWpJBHesu8CSZ LtWCTuIBe3IDZiSEYpMOVpIGhvEHCkJZL1UHe8VUIaRHDsXO9GXpFlFFAtGIzwGxweRGVnZURqlm7OCL SzGFMdRHRoQcYxEEPpWLVxQAzfGEXdWNUbQJU2NRKx WXQwVB6IAkIjJRXsRjP3PmrgWNPhBDIdcq9HPLNbZRZhVdPnZcViZFZhOXClMMkfHIIdOILsZKIkBTZt JRQyUX6OVpEeRJGrRdF2EenkUVBlWPDfaq7PBZBpSSJyMrs4ULLuUAJvNHHpLChlKPOgGCIwTOJ3BKBb WPFrAJ7UFlVgFGFzGsX3RsEyRGKlYOSqcy2BPKQbQH EjGPg6BHLkTUSaEMMcREagOPNtSRG5VNDrCZJuPLJiXT8PAwIdOLZtJyGdMKDuYBAqRYTjej6BpMZjvA asxx0VMSaGTb7RlMepGCVxWVvlVw9wqDUdAZZzDAUFKy9WsyZsUIJhMYLDWXooTQWuQMOsYQXmKqd2ZP Z2Uhj7G4W4OhV4ANR3ZYT4ARavSQYkIbG9HVTbWKN9 WYxcUkw1ZUi5MZMfMGCxQcx4CUrhB2L2OJF+RJ0wRVr+Nl4Me3EhbjW8yyHhQSeaQWG9QL2SROLET6PQ Cg== ID Date Data Source [id number] 10/11/2020 07:36:04 AM EDT [facility] Name Value Range Interpretation Code Description Data Verna rce(s) Supporting Document(s) Amenia [Moles/volume] in Serum or Plasma 0.60-1.20 L [facility] ID Date Data Source [id number] 10/10/2020 10:23:00 AM EDT [facility] Name Value Range Interpretation Code Description Data Verna rce(s) Supporting Document(s) SARS coronavirus 2 RNA [Presence] in Res piratory specimen by SABA with probe detection NEGATIVE [facility] This lab was ordered by [facility] a nd reported by [facility]. ID Date Data Source [id number] 10/03/2020 09:49:00 AM EDT [facility] Name Value Range Interpretation Code Description Data Verna rce(s) Supporting Document(s) SARS coronavirus 2 RNA [Presence] in Res piratory specimen by SABA with probe detection NEGATIVE [facility] This lab was ordered by [facility] a nd reported by [facility]. ID Date Data Source [id number] 09/01/2020 08:07:00 PM EDT [facility] Name Value Range Interpretation Code Description Data Verna rce(s) Supporting Document(s) SARS coronavirus 2 RNA [Presence] in Res piratory specimen by SABA with probe detection NEGATIVE [facility] This lab was ordered by [facility] a nd reported by [facility]. ID Date Data Source PAIN MGMT UR 13 PANEL [id number] 09/01/2020 12:00:00 AM EDT eC W1 ([facility]) Name Value Range Interpretation Code Description Data Verna rce(s) Supporting Document(s) Negative Ciwqid=4967 AMPHETAMINE SCREEN, URIN E eCW1 ([facility]) Negative Jljkog=757 BARBITURATES SCREEN, URIN E eCW1 ([facility]) Negative Whgktd=310 BENZODIAZEPINES, URINE SC REEN eCW1 ([facility]) Negative Dxxkug=087 COCAINE SCREEN, URINE eCW 1 ([facility]) Negative Cutoff=20 CANNABINOID SCREEN, URINE eCW1 ([facility]) Negative Xfuuny=716 OPIATE SCREEN, URINE eCW1 ([facility]) Negative Cutoff=25 PCP SCREEN, URINE eCW1 ([facility]) Negative Ohntzd=935 OXYCODONE, SCREEN, URINE eCW1 ([facility]) Negative Qjwlxr=301 TRAMADOL SCREEN, URINE eC W1 ([facility]) Negative Vmczdz=186 PROPOXYPHENE URINE, SCREE N eCW1 ([facility]) Negative Koacae=444 MEPERIDINE, URINE SCREEN eCW1 ([facility]) Negative Qspmiu=735 METHADONE, URINE SCREEN e CW1 ([facility]) . PLEASE NOTE: eCW1 ([facility]) ID Date Data Source [id number] 08/19/2020 03:09:00 AM EDT [facility] Name Value Range Interpretation Code Description Data Verna rce(s) Supporting Document(s) SARS coronavirus 2 RNA [Presence] in Res piratory specimen by SABA with probe detection NEGATIVE [facility] This lab was ordered by [facility] a nd reported by [facility]. Procedure Social History Code Duration Value Status Description Data Source(s ) Alcohol intake 10/10/2020 12:00:00 AM EDT Ex-drinker (finding) comp leted Ex- drinker (finding) [facility] Tobacco use and exposure 10/10/2020 12:00:00 AM EDT Never used co mpleted Never used [facility] Smoking 10/10/2020 12:00:00 AM EDT Current every day smoker co mpleted Current every day smoker [facility] Smoking 09/19/2020 12:00:00 AM EDT Current Smoker completed Curre nt Smoker eCW1 ([facility]) Smoking 09/01/2020 12:00:00 AM EDT Current Smoker completed Curre nt Smoker eCW1 ([facility]) Tobacco smoking status [facility]IS 07/06/2020 12:00:00 AM EST Unknown if e michi smoked [facility] Vital Signs ID Date Data Source UNK Name Value Range Interpretation Code Description Data Source(s) Body weight 128.12 [lb_av] 128.12 [lb_av] eCW1 ([facility]) Body height 64 [in_i] 64 [in_i] eCW1 ([facility]) Body mass index (BMI) [Ratio] 21.99 kg/m2 21.99 kg/m2 eCW1 ([facility]) Heart rate 82 /min 82 /min eCW1 ([facility]) Respiratory rate 19 /min 19 /min eCW1 ([facility]) Body temperature 98 [degF] 98 [degF] eCW1 ([facility]) Systolic blood pressure 111 mm[Hg] 111 mm[Hg] e CW1 ([facility]) Diastolic blood pressure 73 mm[Hg] 73 mm[Hg] eCW1 ([facility]) Body height 64 [in_i] 64 [in_i] eCW1 ([facility]) Body weight 115 [lb_av] 115 [lb_av] eCW1 ([facility]) Body mass index (BMI) [Ratio] 19.74 kg/m2 19.74 kg/m2 eCW1 ([facility]) Heart rate 96 /min 96 /min eCW1 ([facility]) Respiratory rate 18 /min 18 /min eCW1 ([facility]) Body temperature 98 [degF] 98 [degF] eCW1 ([facility]) Systolic blood pressure 140 mm[Hg] 140 mm[Hg] e CW1 ([facility]) Diastolic blood pressure 96 mm[Hg] 96 mm[Hg] eCW1 ([facility]) ID Date Data Source [id number] 10/20/2020 04:13:17 PM [facility] Name Value Range Interpretation Code Description Data Source(s) WEIGHT RECORDED 128.3 lb 128.3 lb [facility] Body height Measured 63 in 63 in [facility] TRANSFER FROM [facility] Patient Treatment Plan of Care Planned Activity Planned Date Details Description Data Source (s) olanzapine 10 MG Oral Tablet 10/20/2020 12:00:00 AM [facility] Amenia Carbonate 450 MG Extended Release Oral Tablet 10/20/2020 12:00:00 AM [facility] Magnesium Hydroxide 80 MG/ML Oral Suspension 10/14/2020 06:44:57 PM [facility] Acetaminophen 325 MG Oral Tablet 10/10/2020 04:15:58 PM [facility] 24 HR Nicotine 0.875 MG/HR Transdermal Patch 10/06/2020 12:00:00 AM [facility] olanzapine 10 MG Oral Tablet 10/06/2020 12:00:00 AM [facility] montelukast 10 MG Oral Tablet 10/06/2020 12:00:00 AM [facility] Omeprazole 20 MG Delayed Release Oral Capsule 10/06/2020 12:00:00 A M [facility] Tranylcypromine 10 MG Oral Tablet 09/26/2020 12:00:00 AM [facility] Ergocalciferol 32939 UNT Oral Capsule 09/26/2020 12:00:00 AM [facility] Hydroxyzine Hydrochloride 50 MG Oral Tablet 09/26/2020 12:00:00 AM [facility] lamotrigine 150 MG Oral Tablet 09/26/2020 12:00:00 AM [facility] Amenia Carbonate 150 MG Oral Capsule 09/14/2020 12:00:00 AM [facility] Fluticasone Propionate 50 MCG/ACT Nasal Suspension ([place] ONASE) 09/01/2020 12:00:00 AM [facility] Cholecalciferol 52612 UNT Oral Capsule 09/01/2020 12:00:[address] [facility] ([facility])
[2021-03-15 18:56] LABS: HEMOGLOBIN 11.7 g/dl (12.0-15.5); MEAN CORPUSCULAR HEMOGLOBIN 31.3 pg (27.0-33.0); MEAN CORPUSCULAR HGB CONC 35.5 g/dl (32.0-36.5); MEAN CORPUSCULAR VOLUME 88.2 fl (80.0-96.0); PLATELET COUNT, AUTOMATED 313 10^3/uL (150-450); RED BLOOD COUNT 3.74 10^6/uL (4.00-5.40); WHITE BLOOD COUNT 9.1 10^3/uL (4.0-10.0)
[2021-03-15 19:22] LABS: AMPHETAMINES LEVEL URINE NEGATIVE (NEGATIVE); BARBITURATES URINE NEGATIVE (NEGATIVE); BENZODIAZEPINES URINE NEGATIVE (NEGATIVE); CANNABINOIDS URINE NEGATIVE (NEGATIVE); COCAINE METABOLITE URINE NEGATIVE (NEGATIVE); METHADONE URINE NEGATIVE (NEGATIVE); OPIATES URINE NEGATIVE (NEGATIVE); PHENCYCLIDINE URINE NEGATIVE (NEGATIVE)
[2021-03-15 19:23] LABS: HCG, SERUM QUALITATIVE NEGATIVE (NEGATIVE)
[2021-03-15 19:50] LABS: ACETAMINOPHEN LEVEL < 2.0 UG/ML (10.0-30.0); ALBUMIN 3.8 GM/DL (3.2-5.2); ALT/SGPT 20 U/L (12-78); BILIRUBIN,DIRECT 0.1 MG/DL (0.0-0.2); BILIRUBIN,TOTAL 0.7 MG/DL (0.2-1.0); BLOOD UREA NITROGEN 7 MG/DL (7-18); CALCIUM LEVEL 9.4 MG/DL (8.5-10.1); CARBON DIOXIDE LEVEL 33 MEQ/L (21-32); CHLORIDE LEVEL 89 MEQ/L (98-107); CREATININE FOR GFR 0.79 MG/DL (0.55-1.30); ETHYL ALCOHOL (ETHANOL) 0.006 % (0.000-0.010); GLOMERULAR FILTRATION RATE > 60.0 (>60); GLUCOSE, FASTING 82 MG/DL (70-100); LITHIUM LEVEL 0.62 MEQ/L (0.60-1.20); SALICYLATE LEVEL < 1.7 MG/DL (5.0-30.0); SODIUM LEVEL 127 MEQ/L (136-145); THYROID STIMULATING HORMONE 0.778 uIU/ML (0.358-3.740)
--- OUTSIDE RECORDS SUMMARY | 2021-03-15 20:28 | CCD ---
Author Author [facility] Organization [facility] Address Unknown Phone Unavailable Care Team Providers Care Diamond Sawer Name Role Phone RENEA II, F IVÁN [...] F IVÁN DO Unavailable Unavailable Marta Ibanez REFRACTORY BRICKLAYER Unavailable Unavailable Ibanez, Marta REFRACTORY BRICKLAYER Unavailable Unavailable Ibanez, Marta REFRACTORY BRICKLAYER Unavailable Unavailable Ibanez, Marta REFRACTORY BRICKLAYER Unavailable Unavailable Ibanez, Marta REFRACTORY BRICKLAYER Unavailable Unavailable Ibanez, Marta REFRACTORY BRICKLAYER Unavailable Unavailable Ibanez, Marta REFRACTORY BRICKLAYER Unavailable Unavailable Ibanez, Marta REFRACTORY BRICKLAYER Unavailable Unavailable Ibanez, Marta REFRACTORY BRICKLAYER Unavailable Unavailable Ibanez, Marta REFRACTORY BRICKLAYER Unavailable Unavailable Ibanez, Marta REFRACTORY BRICKLAYER Unavailable Unavailable Ibanez, Marta REFRACTORY BRICKLAYER Unavailable Unavailable Ibanez, Marta REFRACTORY BRICKLAYER Unavailable Unavailable Ibanez, Marta REFRACTORY BRICKLAYER Unavailable Unavailable Ibanez, Marta REFRACTORY BRICKLAYER Unavailable Unavailable Ibanez, Marta REFRACTORY BRICKLAYER Unavailable Unavailable Ibanez, Marta REFRACTORY BRICKLAYER Unavailable Unavailable Ibanez, Marta REFRACTORY BRICKLAYER Unavailable Unavailable Ibanez, Marta REFRACTORY BRICKLAYER Unavailable Unavailable Ibanez, Marta REFRACTORY BRICKLAYER Unavailable Unavailable Ibanez, Marta REFRACTORY BRICKLAYER Unavailable Unavailable Ibanez, Marta REFRACTORY BRICKLAYER Unavailable Unavailable Ibanez, Marta REFRACTORY BRICKLAYER Unavailable Unavailable Ibanez, Marta REFRACTORY BRICKLAYER Unavailable Unavailable Ibanez, Marta REFRACTORY BRICKLAYER Unavailable Unavailable Ibanez, Marta REFRACTORY BRICKLAYER Unavailable Unavailable Ibanez, Marta REFRACTORY BRICKLAYER Unavailable Unavailable Ibanez, Marta REFRACTORY BRICKLAYER Unavailable Unavailable Ibanez, Marta REFRACTORY BRICKLAYER Unavailable Unavailable Ibanez, Marta REFRACTORY BRICKLAYER Unavailable Unavailable Ibanez, Marta REFRACTORY BRICKLAYER Unavailable Unavailable Ibanez, Marta REFRACTORY BRICKLAYER Unavailable Unavailable Ibanez, Marta REFRACTORY BRICKLAYER Unavailable Unavailable Ibanez, Marta REFRACTORY BRICKLAYER Unavailable Unavailable Ibanez, Marta REFRACTORY BRICKLAYER Unavailable Unavailable Ibanez, Marta REFRACTORY BRICKLAYER Unavailable Unavailable Ibanez, Marta REFRACTORY BRICKLAYER Unavailable Unavailable Ibanez, Marta REFRACTORY BRICKLAYER Unavailable Unavailable Ibanez, Marta REFRACTORY BRICKLAYER Unavailable Unavailable Ibanez, Marta REFRACTORY BRICKLAYER Unavailable Unavailable Ibanez, Marta REFRACTORY BRICKLAYER Unavailable Unavailable Shirin Fernandez MD Unavailable Unavailable [...] G CHRISTOPHER PA Unavailable Unavailable DESJARLAIS, ADIA ORGAN FIXER Unavailable Unavailable DESJARLAIS, ADIA ORGAN FIXER Unavailable Unavailable DESJARLAIS, ADIA ORGAN FIXER Unavailable Unavailable DESJARLAIS, ADIA ORGAN FIXER Unavailable Unavailable DESJARLAIS, ADIA ORGAN FIXER Unavailable Unavailable DESJARLAIS, ADIA ORGAN FIXER Unavailable Unavailable DESJARLAIS, ADIA ORGAN FIXER Unavailable Unavailable DESJARLAIS, ADIA ORGAN FIXER Unavailable Unavailable DESJARLAIS, ADIA ORGAN FIXER Unavailable Unavailable AUGUSTINA ROBLES MD Unavailable Unavailable [...] Unavailable Unavailable Jorge Suazo MD Unavailable Unavailable oJrge Suazo MD Unavailable Unavailable Jorge Suazo MD [...] Unavailable Jorge Suazo MD Unavailable Unavailable Jorge Suaoz MD Unavailable Unavailable Jorge Suazo MD Unavailable Unavailable Jorge Suazo MD Unavailable Unavailable Jorge Suazo MD Unavailable Unavailable Jorge Suazo MD Unavailable Unavailable Jorge Suazo MD Unavailable Unavailable Jorge Suazo MD Unavailable Unavailable Jorge Suazo MD Unavailable Unavailable Jorge Suazo MD Unavailable Unavailable Jorge Suazo MD Unavailable Unavailable Jorge Suazo MD Unavailable Unavailable BROWN, L LAZARA Unavailable Unavailable Junior Kelly Unavailable Junior Kelly Unavailable Ansley Eisenberg Unavailable Corzanae, Ansley Unavailable Corbine, Ansley Unavailable [...] PANCHO, FATUMA JOSE LUIS PA-C Unavailable Unavailable ANDRESSA CARDOZA Unavailable Unavailable Re-disclosure Warning The records that [...] by Article 27-F of the [facility] Public Health law. If you continue you may have access to information: Regarding HIV / AIDS; Provided by facilities licensed or operated by the [facility] Office of Mental Health; or Provided by the [facility] Office for People With Developmental Disabilities. If such information is present, then the following [facility] mandated warning applies: This information has [...] law may result in a fine or long-term sentence or both. A general authorization for the release of medical or other information is NOT sufficient authorization for further disc losure. Allergies and Adverse Reactions Type Description Substance Reaction Status Data Source(s ) Propensity to adverse reactions TRAZODONE AND NEFAZODONE TRA ZODONE AND NEFAZODONE [facility] ospital Propensity to adverse reactions LISDEXAMFETAMINE LISDEXAMFETAMINE [facility] Propensity to adverse reactions HYDROCODONE Hydrocodone [facility] Propensity to adverse reactions ALLERGIES NOT ON FILE ALLERGIES NOT O N FILE [facility] Family History Family Member Name Family Member Gender Family Member Status Date o f Status Description Data Source(s) Unknown Unknown Problem 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 Outpatient Attender: ADIA VALENCIA NP 03/02/2021 09: 20:00 AM [facility] Outpatient Attender: ADIA VALENCIA NP 02/16/2021 11: 00:00 AM [facility] Outpatient Attender: ADIA VALENCIA NP 01/16/2021 08: 00:00 AM [facility] Outpatient Attender: ADIA VALENCIA NP 12/08/2020 03: 20:00 PM [facility] Outpatient Attender: ADIA VALENCIA NP 11/02/2020 10: 40:00 AM [facility] Outpatient Attender: Kelly Pacheco 11/01/2020 01:43:00 PM [facility] Inpatient Attender: AUGUSTINA Jernigan nder: Shirin Fernandez MDAdmitter: Shirin Fernandez MDReferrer: PROVIDER SYSTEM [id number] 09/30 12:00:00 AM EDT - 10/20/2020 10:40:00 AM EDT Major depressive disorder, recurrent, unspecified [facility] Major depressive disorder, recurrent, un specified Patient discharged. Outpatient Attender: Kelly Pacheco 09/26/2020 12:38:00 PM [facility] Outpatient Attender: ADIA VALENCIA NP 09/26/2020 09: 52:00 AM [facility] [place] [address] [facility] [address] 09/19/2020 12:00:00 AM EDT eCW1 ([facility]) Outpatient Attender: ADIA VALENCIA NP 09/12/2020 10: 16:00 AM [facility] Outpatient [address] [facility] [facility] [address] 09/01/2020 12:00:00 AM EDT eCW1 ([facility]) Outpatient Attender: ADIA VALENCIA NP 08/29/2020 10: 25:00 AM [facility] Outpatient Attender: ADIA VALENCIA ORGAN FIXER 08/04/2020 04: 20:00 PM [facility] Outpatient Attender: ADIA VALENCIA NP 07/11/2020 04: 20:00 PM [facility] Outpatient Attender: ADIA VALENCIA NP 06/01/2020 04: 20:00 PM [facility] Outpatient Attender: ADIA VALENCIA NP 04/20/2020 04: 00:00 PM [facility] [place] [address] [facility] [facility] [address] 04/14/2020 12:00:00 AM EST eCW1 ([facility]) [place] [address] [facility] [facility] [address] 03/28/2020 12:00:00 AM EDT eCW1 ([facility]) Outpatient [facility] 03/21/2020 12:00:00 AM EDT eCW1 ([facility]) [place] [address] [facility] [facility] [address] 03/15/2020 12:00:00 AM EDT eCW1 ([facility]) [place] [address] [facility] [facility] [address] 03/09/2020 12:00:00 AM EDT eCW1 ([facility]) [place] [address] [facility] [facility] [address] 03/09/2020 12:00:00 AM EDT eCW1 ([facility]) Outpatient Attender: ADIA VALENCIA ORGAN FIXER 02/09/2020 02: 00:00 PM [facility] Outpatient Attender: ADIA VALENCIA ORGAN FIXER 01/19/2020 11: 00:00 AM [facility] Outpatient Attender: ADIA VALENCIA ORGAN FIXER 12/24/2019 03: 40:00 PM [facility] Outpatient Attender: ADIA VALENCIA ORGAN FIXER 12/14/2019 04: 20:00 PM [facility] Outpatient Attender: JOSE LUIS MELGARCAttender: ANDRESSA CARDOZA 12/06/2019 11:25:00 AM [facility] Outpatient Attender: ADIA VALENCIA ORGAN FIXER 11/24/2019 02: 40:00 PM [facility] Outpatient Attender: ADIA VALENCIA ORGAN FIXER 11/03/2019 04: 20:00 PM [facility] Outpatient Attender: ADIA VALENCIA ORGAN FIXER 10/28/2019 04: 00:00 PM [facility] Outpatient Attender: ADIA VALENCIA ORGAN FIXER 10/19/2019 09: 46:00 AM [facility] Outpatient Attender: ADIA DANYARARLINE ORGAN FIXER 10/12/2019 11: 20:00 AM [facility] Outpatient Attender: ADIA DANYARARLINE ORGAN FIXER 10/07/2019 03: 59:00 PM [facility] Outpatient Attender: ADIA VALENCIA ORGAN FIXER 09/28/2019 04: 33:00 PM [facility] Outpatient Attender: ADIA VALENCIA ORGAN FIXER 09/21/2019 10: 40:00 AM [facility] Outpatient Attender: ADIA VALENCIA ORGAN FIXER 09/16/2019 11: 20:00 AM [facility] Outpatient Attender: ADIA VALENCIA ORGAN FIXER 09/10/2019 08: 25:00 AM [facility] Outpatient Attender: JOSE LUIS MELGARCAttender: ANDRESSA CARDOZA 09/09/2019 03:30:00 PM [facility] Outpatient Attender: ADIA VALENCIA ORGAN FIXER 08/26/2019 11: 00:00 AM [facility] Outpatient Attender: ADIA VALENCIA ORGAN FIXER 08/05/2019 11: 00:00 AM [facility] Outpatient Attender: ADIA VALENCIA ORGAN FIXER 07/13/2019 03: 37:00 PM [facility] Outpatient Attender: Ansley Viveros cony: ANSLEY Lamender: ADIA VALENCIA NP 07/08/2019 08:26:00 AM [facility] Outpatient Attender: ADIA VALENCIA ORGAN FIXER 07/01/2019 04: 15:00 PM [facility] Outpatient Attender: ADIA VALENCIA NP 06/22/2019 08: 52:00 AM [facility] Outpatient Attender: ADIA VALENCIA ORGAN FIXER 05/27/2019 10: 40:00 AM [facility] Outpatient Attender: LAZARA ORTEGA 05/21/2019 08:15:00 AM [facility] Outpatient Attender: LAZARA ORTEGA 05/20/2019 04:58:00 PM [facility] Outpatient Attender: ADIA VALENCIA NP 05/20/2019 09: 20:00 AM [facility] Outpatient Attender: ADIA VALENCIA NP 04/01/2019 04: 30:00 PM [facility] Outpatient Attender: ADIA VALENCIA ORGAN FIXER 02/26/2019 12: 56:00 PM [facility] Outpatient Attender: Chris Suazo MD 10/14/2016 06:44:00 PM [facility] Emergency Attender: IVÁN MEIER II 07/30 03:31:00 PM [facility] 07/30/2014 03:57:00 PM [facility] Outpatient Attender: Marta NÚÑEZ EMERGENCY ROOM-[facility] 06/16/2012 08:58:00 AM [facility] - 06/16/2012 08:58:00 AM [facility] Immunizations Vaccine Date Status Description Data Source(s) COVID-19 VACC,MRNA(MODERNA)/PF 10/23/2020 12:00:00 AM EDT completed [facility] COVID-19 VACCINE Moderna 10/23/2020 12:00:00 AM EDT completed [facility] Vaccine Series Complete: YESThis Data wa s Submitted to [facility]. COVID-19 VACCINE Moderna 09/14/2020 12:00:00 AM EDT completed [facility] Vaccine Series Complete: NOThis Data was Submitted to [facility]. COVID-19 VACC,MRNA(MODERNA)/PF 09/14/2020 12:00:00 AM EDT completed [facility] Medications Medication Brand Name Start Date Product Form Dose Route Admi nistrative Instructions Pharmacy Instructions Status Indications Reaction Description Data Source(s) 10 mg 03/02/2021 12:00:00 AM EDT tablet 10 TAKE ONE TABLET BY MOUTH EVERY DAY FOR 10 DAYS TAKE ONE TABLET BY MOUTH EVERY DAY FOR 10 DAYS SOLD: 021 [facility] 10 mg 02/18/2021 12:00:00 AM [...] BY MOUTH ONCE A WEEK SOLD: 11/04/2020 [facility] [place] Carbonate 450 MG Extended Releas e Oral Tablet [place] Carbonate ER 450 MG Oral Tablet Extended Release (ESKALITH) [place] Carbonate ER 450 MG Oral Tablet Extended Release (ESKALITH) 10/20/2020 12:00:00 AM EDT 450 mg Oral active Take 1 tablet by mouth Two Times Daily [facility] olanzapine 10 MG Oral Tablet OLANZapine 10 MG Oral Tab let (ZYPREXA) OLANZapine 10 MG Oral Tablet (ZYPREXA) 10/20/2020 12:00:00 AM EDT 10 mg Oral active Take 1 tablet by mouth nightly as needed [facility] sennosides, SHELTER 8.6 MG Oral Tablet senna tablet 2 tablet sen na tablet 2 tablet 10/18/2020 10:00:00 PM EDT 2 {tbl} Oral active 2 tablet, Oral, Nightly, First dose on Fri10/18/20 at 2200, For 30 days [facility] Medication administered onsite Docusate Sodium 100 MG Oral Capsule docusate sodium (C OLACE) capsule 100 mg docusate sodium (COLACE) capsule 100 mg 10/18/2020 01:15:00 PM EDT 100 mg Oral active 100 mg, Oral, 2 Times Daily, First dose on Fri10/18/20 at 1315, For 30 days [facility] Medication administered onsite POLYETHYLENE GLYCOL 3350 142 [...] due to potential increased risk for aspiration.
[facility] Medication administered onsite Hydroxyzine Pamoate 25 MG Oral Capsule hydrOXYzine ( STARIL) capsule 25 mg hydrOXYzine (VISTARIL) capsule 25 mg 10/18/2020 10:03:55 AM EDT 25 mg Oral active 25 mg, Oral, June ry 6 hours PRN, Anxiety, Starting on Fri10/18/20 at 1003, For 534 hours [facility] Medication administered onsite lithium capsule 450 mg 10/17/2020 09:00:00 PM EDT 450 mg Oral active 450 mg, Oral, 2 Times Daily, First dose (after last modification) on Fri10/17/20 at 2100, For 46 doses [facility] Medication administered onsite [place] Carbonate 150 MG Oral Capsule lithium capsule 150 mg lithium capsule 150 mg 10/17/2020 11:00:00 AM EDT 150 mg Oral completed 150 mg, Oral, Once, On Fri10/17/20 at 1100, For 1 dose [facility] Medication administered onsite Nicotine 2 MG Oral Lozenge nicotine (NICORETTE) lozeng e 2 mg nicotine (NICORETTE) lozenge 2 mg 10/16/2020 07:02:01 PM EDT 2 mg Mouth/Th roat active 2 mg, Mouth/Throat, Every 2 hours PRN, Smoking cessation, Starting on Fri10/16/20 at 1902, For 30 days
Should not be chewed or swallowed; allow to dissolve slowly (~20-30 minutes)
[facility] Medication administered onsite Magnesium Hydroxide 80 MG/ML [...] creatinine > 2 notify provider before administering.
[facility] Medication administered onsite lamoTRIgine (LaMICtal) tablet 150 mg 10/13/2020 09:00:00 PM EDT 150 mg Oral active 150 mg, Oral, 2 Times Daily, First dose (after last modification) on Fri10/13/20 at 2100, For 54 doses [facility] Medication administered onsite [place] Carbonate 300 MG Oral Capsule lithium carbonat e capsule 300 mg lithium carbonate capsule 300 mg 10/13/2020 11:15:00 AM EDT 300 mg Oral completed 300 mg, Oral, Once, On Fri10/13/20 at 11 15, For 1 dose [facility] Medication administered onsite lamotrigine 100 MG Oral Tablet lamoTRIgine (LaMICtal) tablet 100 mg lamoTRIgine (LaMICtal) tablet 100 mg 10/13/2020 11:15:00 AM EDT 100 mg Oral active 100 mg, Oral, Once, On Fri10/13/20 at 1115, For 1 dose [facility] Medication administered onsite Hydroxyzine Hydrochloride 10 MG Oral Tablet hydrOXYzin e (ATARAX) tablet 10 mg hydrOXYzine (ATARAX) tablet 10 mg 10/13/2020 11:07:44 AM EDT 10 mg Oral aborted 10 mg, Oral, Every 6 hours PRN, Anxiety, Starting on Fri10/13/20 at 1107, For 653 hours [facility] Medication administered onsite [place] Carbonate 300 MG Oral Capsule lithium carbonat e capsule 300 mg lithium carbonate capsule 300 mg 10/12/2020 09:00:00 PM EDT 300 mg Oral aborted 300 mg, Oral, 2 Times Daily, First dose (after last modification) on Fri10/12/20 at 2100, For 56 doses [facility] Medication administered onsite lamotrigine 25 MG Oral Tablet lamoTRIgine (LaMICtal) t ablet 50 mg lamoTRIgine (LaMICtal) tablet 50 mg 10/11/2020 09:00:00 PM EDT 50 mg Oral aborted 50 mg, Oral, 2 Times Daily, First dose (after last modification) on Fri10/11/20 at 2100, For 58 doses [facility] Medication administered onsite Ibuprofen 600 MG Oral Tablet ibuprofen (MOTRIN) tablet 600 mg ibuprofen (MOTRIN) tablet 600 mg 10/11/2020 10:34:55 AM EDT 600 mg Oral acti ve 600 mg, Oral, Every 6 hours PRN, Moderate Pain (Pain Scale Score 4-6), Starting on Fri10/11/20 at 1034, For 701 hours
Take with food.
[facility] Medication administered onsite Ergocalciferol 99785 UNT Oral Capsule vi tamin D (ERGOCALCIFEROL) capsule 50,000 Units vitamin D (ERGOCALCIFEROL) capsule 50,000 Units 2020 09:00:00 AM EDT 23524 U Oral active 50,000 U nits, Oral, Weekly, First dose on Fri10/11/20 at 0900, For 30 days [facility] Medication administered onsite pantoprazole 40 MG Delayed Release Oral Tablet pantoprazole (PROTONIX) EC tablet 40 mg pantoprazole (PROTONIX) EC tablet 40 mg 10/11/2020 07:30:00 AM E DT 40 mg Oral active 40 mg, Ora l, Before Breakfast, First dose on Fri10/11/20 at 0730, For 30 days [facility] Medication administered onsite olanzapine 10 MG Oral Tablet OLANZapine (ZYPREXA) tabl et 10 mg OLANZapine (ZYPREXA) tablet 10 mg 10/10/2020 10:00:00 PM EDT 10 mg Oral active 10 mg, Oral, Nightly, First dose on Fri10/10/20 at 2200, For 30 days [facility] Medication administered onsite montelukast 10 MG Oral Tablet montelukast (SINGULAIR) tablet 10 mg montelukast (SINGULAIR) tablet 10 mg 10/10/2020 10:00:00 PM EDT 10 mg Oral active 10 mg, Oral, Nightly, First dose on Fri10/10/20 at 2200, For 30 days [facility] Medication administered onsite [place] Carbonate 150 MG Oral Capsule lithium capsule 150 mg lithium capsule 150 mg 10/10/2020 09:00:00 PM EDT 150 mg Oral aborted 150 mg, Oral, 2 Times Daily, First dose on Fri10/10/20 at 2100, For 30 days [facility] Medication administered onsite Tranylcypromine 10 MG Oral Tablet tranylcypromine (PAR PATRICIA) tablet 10 mg tranylcypromine (PARNATE) tablet 10 mg 10/10/2020 09:00:00 PM EDT 1 0 mg Oral active 10 mg, Oral, 2 Times Daily, First dose on Fri10/10/20 at 2100, For 30 days [facility] Medication administered onsite lamoTRIgine (LaMICtal) tablet 150 mg 10/10/2020 09:00:00 PM EDT 150 mg Oral aborted 150 mg, Oral, 2 Times Daily, First dose on Fri10/10/20 at 2100, For 30 days [facility] Medication administered onsite olanzapine 10 MG Disintegrating Oral Tab let OLANZapine zydis (ZYPREXA) disintegrating tablet 10 mg OLANZapine zydis (ZYPREXA) disintegratin g tablet 10 mg 10/10/2020 07:19:07 PM EDT 10 mg Oral active 10 mg, Oral, Every 8 hours PRN, agitation, ammy, Starting on Fri10/10/20 at 1919, For 30 days [facility] Medication administered onsite fluticasone (FLONASE) 50 MCG/ACT nasal spray 1 spray [id number] 10/10/2020 05:01:29 PM EDT 1 {spray} Nasal active 1 spray, Nasal, Daily PRN, allergies, Starting on Fri10/10/20 at 1701, For 30 days
Shake well before use
[facility] Medication administered onsite 24 HR Nicotine 0.875 MG/HR Transdermal P atch nicotine (NICODERM CQ) 21 MG/24HR 1 patch nicotine (NICODERM CQ) 21 MG/24HR 1 patch 10/10/2020 05:00:00 PM EDT 1 {patch} Transdermal aborted 1 patch, Transdermal, Administer over 24 Hours, Daily Standard, First dose on Fri10/10/20 at 1700, For 30 days [facility] Medication administered onsite Hydroxyzine Hydrochloride 50 MG Oral Tablet hydrOXYzin e (ATARAX) tablet 50 mg hydrOXYzine (ATARAX) tablet 50 mg 10/10/2020 04:16:10 PM EDT 50 mg Oral aborted 50 mg, Oral, Every 6 hours PRN, Anxiety, Starting on Fri10/10/20 at 1616, For 30 days [facility] Medication administered onsite Acetaminophen 325 MG Oral [...] mg from all sources in 24 hours.
[facility] Medication administered onsite olanzapine 10 MG Oral [...] active Take 20 mg by mouth daily [facility] montelukast 10 MG Oral Tablet MONTELUKAST SODIUM [...] aborted Take 10 mg by mouth nightly [facility] 24 HR Nicotine 0.875 MG/HR Transdermal P atch Nicotine 21 MG/24HR Transdermal Patch 24 Hour (NICODERM CQ) Nicotine 21 MG/24HR Transdermal Patch 24 Hour (NICODERM CQ) 10/06/2020 12:00:00 AM EDT 1 {patch} Transdermal active Place 1 patch onto the skin daily [facility] montelukast 10 MG Oral Tablet Montelukast Sodium 10 MG Oral Tablet (SINGULAIR) Montelukast Sodium 10 MG Oral Tablet (SINGULAIR) 10/06/2020 12:00:00 AM EDT 10 mg Oral active Take 10 mg by mouth smith salas [facility] lamotrigine 150 MG Oral Tablet lamoTRIgine 150 MG Oral Tablet (LAMICTAL) lamoTRIgine 150 MG Oral Tablet (LAMICTAL) 09/26/2020 12:00:00 AM EDT 150 mg Oral active Take 150 mg by mouth Two Times Daily [facility] 150 mg 09/26/2020 12:00:00 AM EDT tablet 60 TAKE ONE TABLET BY MOUTH TWICE A DAY TAKE ONE TABLET BY MOUTH TWICE A DAY SOLD: 11/23/2020 [facility] Ergocalciferol 11213 UNT Oral Capsule Vi tamin D (Ergocalciferol) 1.25 MG (64770 UT) Oral Capsule (ERGOCALCIFEROL) Vitamin D (Ergocalciferol) 1.25 MG (5000 0 UT) Oral Capsule (ERGOCALCIFEROL) 09/26/2020 12:00:00 AM EDT 77599 U Ora l active Take 50,000 Units by mouth once a week [facility] Tranylcypromine 10 MG Oral Tablet Tranyl cypromine Sulfate 10 MG Oral Tablet (PARNATE) Tranylcypromine Sulfate 10 MG Oral Tablet (PARNATE) 12:00:00 AM EDT 10 mg Oral active Take 10 mg by mouth Two Times Daily [facility] Hydroxyzine Hydrochloride 50 MG Oral Tab let hydrOXYzine HCl 50 MG Oral Tablet (ATARAX) hydrOXYzine HCl 50 MG Oral Tablet (ATARAX) 09/26/2020 12:00: 00 AM EDT 50 mg Oral active Take 50 mg by mo uth daily as needed [facility] 50 mg 09/14/2020 12:00:00 AM EDT tablet 30 TAKE ONE TABLET BY MOUTH TWICE A DAY NEEDED TAKE ONE TABLET BY MOUTH TWICE A DAY NEEDED SOLD: 09/16/2020 [facility] [place] Carbonate 150 MG Oral Capsule [place] Carbonate 150 MG Oral Capsule 09/14/2020 12:00:00 AM EDT 150 mg Oral aborted Take 150 mg by mouth Two Times Daily [facility] 150 mg 09/14/2020 12:00:00 AM EDT capsule 60 TAKE ONE CAPSULE BY MOUTH TWICE A DAY TAKE ONE CAPSULE BY MOUTH TWICE A DAY SOLD: 09/16/2020 [facility] 300 mg 09/11/2020 12:00:00 AM EDT capsule 14 TAKE ONE CAPSULE BY MOUTH TWICE A DAY FOR MOOD TAKE ONE CAPSULE BY MOUTH TWICE A DAY FOR MOOD SOLD: [facility] Cholecalciferol 99683 UNT Oral Capsule Vitamin D3 1.25 MG (83578 UT) Vitamin D3 1.25 MG (92719 UT) 09/01/2020 12:00:00 AM EDT 1.0 {capsule} active Vitamin D3 1.25 MG (03568 UT) eCW1 ([facility]) montelukast 10 MG Oral Tablet MONTELUKAST SODIUM [...] Fluticasone Propionate 50 MCG/ACT Nasal Suspension (FLONASE) 4386-2111-36 09/01/2020 12:00:00 AM EDT 1 {spray} Nasal active 1 spray by Nasal route daily as needed [facility] 20 mg 09/01/2020 12:00:00 AM EDT capsule,delayed release (DR/EC) 30 TAKE ONE CAPSULE BY MOUTH EVERY DAY TAKE ONE CAPSULE BY MOUTH EVERY DAY SOLD: 11/23/2020 [facility] Cholecalciferol 01637 UNT Oral Capsule Vitamin D3 1.25 MG (18055 UT) Vitamin D3 1.25 MG (93405 UT) 09/01/2020 12:00:00 AM EDT 1.0 {capsule} active Vitamin D3 1.25 MG (17035 UT) eCW1 ([facility]) 1,250 mcg (50,000 unit) 08/30/2020 12:00:00 AM [...] blake Policy Blake Plan Information MEDICARE A [id number] Self [id number] P46 MEDICARE A [id number] Self [id number] [employer] [id number] S [id number] [place] [id number] S [id number] [place] [id number] S [id number] [employer] [id number] S [id number] MEDICARE [id number] SP [id number] [id number] MEDICAID [id number] S [id number] MEDICAID M [id number] Self [id number] [place] [id number] S [id number] [facility] MEDICAID [id number] S [id number] MEDICAID [id number] SP [id number] MEDICAID PROF FEES [id number] S [id number] MEDICAID [id number] S [id number] MCRB [id number] S [id number] P46 MEDICARE [id number] S [id number] P46 [place] [id number] CHILD [id number] ANSI-Medicaid [id number] ANSI-Not a Secondary Insurance [id number] ANSI-Medicare Part B [id number] ANSI-Medicaid [id number] ANSI-Not a Secondary Insurance [id number] ANSI-Medicaid [id number] ANSI-Medicaid [id number] ANSI-Medicare Part B [id number] ANSI-Medicare Part B [id number] ANSI-Medicaid [id number] ANSI-Not a Secondary Insurance [id number] ANSI-Medicaid [id number] ANSI-Medicare Part B [id number] ANSI-Not a Secondary Insurance [id number] ANSI-Medicaid 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 9EP6Rqp3XbLmZxAJAKSFqbUE9ddqJfDKIkTg3RZ5rKTunoTRktWJS7TnQ0YeC7NbQ3XLZ1VIL4ZOG4Mt WaZWXhED0eBOGfJZR9BvhxVeY4CJPxPECkTiB4CwVe Drc8UDEdVJWuXrGqNZ7GAv1SAcX8RON8oKUaVv0CApwgUgTXEzWoLK3ODQl= ID Date Data Source [id number] [facility]46[facility] [place] [facility] Interpretation Code Description Data Verna rce(s) Supporting Document(s) [place] [Moles/volume] in Serum or Plasma 0.72 mmol/L 0.60-1.20 [facility] ID Date Data Source [id number] 10/17/2020 08:26:03 AM EDT [facility] Value Range Interpretation Code Description Data Verna rce(s) Supporting Document(s) [place] [Moles/volume] in Serum or Plasma 0.50 mmol/L 0.60-1.20 L [facility] ID Date Data Source [id number] 10/17/2020 08:18:[address] [facility] Name Value Range Interpretation Code Description Data Verna rce(s) Supporting Document(s) Calcidiol [Mass/volume] in Serum or Plasma 36 ng/mL >30 [facility] ID Date Data Source [id number] 10/17/2020 08:33:04 AM [facility] Value Range Interpretation Code Description Data Verna rce(s) Supporting Document(s) Thyrotropin [Units/volume] in Serum or Plasma 1.710 u[IU]/mL 0.270-4. 200 [facility] ID Date Data Source [id number] 10/13/2020 06:35:11 AM [facility] Value Range Interpretation Code Description Data Verna rce(s) Supporting Document(s) Leukocytes [#/volume] in Blood by Automated count 8.5 10*3/uL 4-10 [facility] Erythrocytes [#/volume] in Blood by Automated count 3.99 10*6/uL 4.1- 5.3 L [facility] Hemoglobin [Mass/volume] in Blood 12.5 g/dL 11.5-15.5 [facility] Hematocrit [Volume Fraction] of Blood by Automated count 38.6 % 3 6-45 [facility] Erythrocyte mean corpuscular volume [Entitic volume] by Auto mated count 96.8 fL 80-96 H [facility] Erythrocyte mean corpuscular hemoglobin [Entitic mass] by Automated count 31.2 pg 27-33 [facility] Erythrocyte mean corpuscular hemoglobin concentration [Mass/volume] by Automated count 32.3 g/[facility].0-[facility] width [Ratio] by Automated count 13.5 % 11.5-14.5 [facility] Platelets [#/volume] in Blood by Automated count 350 10*3/uL 150-400 [facility] ID Date Data Source [id number] 10/13/2020 07:12:18 AM [facility] Value Range Interpretation Code Description Data Verna rce(s) Supporting Document(s) Cholesterol [Mass/volume] in Serum or Plasma 151 mg/dL <200 [facility] Triglyceride [Mass/volume] in Serum or Plasma 50 mg/dL <150 [facility] Cholesterol in HDL [Mass/volume] in Serum or Plasma 60 mg/dL >50 [facility] Cholesterol in LDL [Mass/volume] in Serum or Plasma by calcu lation 82 mg/dL <100 [facility] Cholesterol in VLDL [Mass/volume] in Serum or Plasma by calc ulation 10 mg/dl 16-42 L [facility] Cholesterol non HDL [Mass/volume] in Serum or Plasma 91 mg/dL <130 [facility] ID Date Data Source [id number] 10/13/2020 12:33:[address] [facility] Name Value Range Interpretation Code Description Data Verna rce(s) Supporting Document(s) Choriogonadotropin.beta subunit [Moles/volume] in Serum or Plasma <5 [facility] ID Date Data Source [id number] 10/13/2020 07:05:[address] [facility] Name Value Range Interpretation Code Description Data Verna rce(s) Supporting Document(s) Hemoglobin A1c/Hemoglobin.total in Blood by HPLC 4.9 % 4.0-6.0 [facility] Glucose mean value [Mass/volume] in Blood Estimated fr om glycated hemoglobin 94 mg/dL <126 [facility] ID Date Data Source [id number] 10/13/2020 01:47:[address] [facility] Service Cmnt XXX-Imp : NoneMicroorganism XXX Cult : Optical [employer]er Mediated Amplification(TMA) is NEGATIVE for Neisseria gonorrhoeae AND NEGATIVE for Chlamydia trachomatis. Name Value Range Interpretation Code Description Data Verna rce(s) Supporting Document(s) ID Date Data Source [id number] 10/11/2020 10:44:10 PM [facility] Name Value Range Interpretation Code Description Data Verna rce(s) Supporting Document(s) History and Physical [facility] WFKDCr4nNbWCGyAz06/XDEqvVPHcb1OcHOqjZMn5LNofHIBtA0WvZNJ8uZ3kXCG4DSzNCaYbYoWxDQQg lbm [file] ICAgICAgICAgICAgICAgICAgICAgICAgICAgICAgICAgICAgICAgICAgICAgICAgICAgICAgICAgICAg ICAgICAgICAgICAgICAgICAgICAgICAgICAgICAgDQ ogICAgICAgICAgICAgICAgICAgICAgICAgICAgICAgICAgICAgICAgICAgICAgICAgICAgICAgICAgIC AgICAgICAgICAgICAgICAgICAgICAgICAgICAgICAgICAgICAgICAgDQogICAgICAgICAgICAgICAgIC AgICAgICAgICAgICAgICAgICAgICAgICAgICAgICAg ICAgICAgICAgICAgICAgICAgICAgICAgICAgICAgICAgICAgICAgICAgICAgICAgICAgDQogICAgICAg ICAgICAgICAgICAgICAgICAgICAgICAgICAgICAgICAgICAgICAgICAgICAgICAgICAgICAgICAgICAg ICAgICAgICAgICAgICAgICAgICAgICAgICAgICAgIC AgDQogICAgICAgICAgICAgICAgICAgICAgICAgICAgICAgICAgICAgICAgICAgICAgICAgICAgICAgIC AgICAgICAgICAgICAgICAgICAgICAgICAgICAgICAgICAgICAgICAgICAgDQogICAgICAgICAgICAgIC AgICAgICAgICAgICAgICAgICAgICAgICAgICAgICAg ICAgICAgICAgICAgICAgICAgICAgICAgICAgICAgICAgICAgICAgICAgICAgICAgICAgICAgDQogICAg ICAgICAgICAgICAgICAgICAgICAgICAgICAgICAgICAgICAgICAgICAgICAgICAgICAgICAgICAgICAg ICAgICAgICAgICAgICAgICAgICAgICAgICAgICAgIC AgICAgDQogICAgICAgICAgICAgICAgICAgICAgICAgICAgICAgICAgICAgICAgICAgICAgICAgICAgIC AgICAgICAgICAgICAgICAgICAgICAgICAgICAgICAgICAgICAgICAgICAgICAgDQogICAgICAgICAgIC AgICAgICAgICAgICAgICAgICAgICAgICAgICAgICAg ICAgICAgICAgICAgICAgICAgICAgICAgICAgICAgICAgICAgICAgICAgICAgICAgICAgICAgICAgDQog ICAgICAgICAgICAgICAgICAgICAgICAgICAgICAgICAgICAgICAgICAgICAgICAgICAgICAgICAgICAg ICAgICAgICAgICAgICAgICAgICAgICAgICAgICAgIC GjKUIfOVHdSSo1L8frUQSiMWHkWC1gIVg6Zr5+YVmCYiTuFQR2pgJtgW1OGZ6ns5NsOBiqRDGhv2BvVE k3EA4UTYBmCRjpYQ2OWCwpeo9EJBNuLUExjSRYo4ycTfAdZMZ5CVWxGvpyKW4RIWTyJ3pmjeHsRWGnOS STTCoiCAFFGSdpOPWMHXGyJHKpArQzUaUuONBkUD9X HPNbO037ksRqEQ3BMk1YEbPlAT7fju6YNsTlYKHlOpeVYgs8ZPqpZU5WeXAsaVLpAwSjJEGYHyQiN8ck w6AuRbjcBJSGOIrmMC9Lh0OajPOyPGc+Tv9OPE0qs2YfNOpyFsFbBH5ual9ZPGfWJbZsT2OllBwqIDat HEGtqXSDTTF0kJP1HYoaW3XdlvWsDATNDRKmwJQ0Bg QpOtQpUwLfFES8WkGdEC8kJBozXC0JQTP5YSqlBAMqCOJwT7gVLsNdJUDnYbIruKmcLM6ZPxWxR5Lhjt VudCAzNiAwIFINCj4+PWmujuMzMkdRQxS5GNVdu2CxKFn4FR2YHCTyWCbcZW6IEZGylB9nQPkaGW3JFm TyLXGbCMWJXoEyI27fuYEaLQi3P4DiEwRfJQNhOaiu ZXMgPDwvTmFtZXMgWyBdDQogID4+ID4+BEjjNI3TEXlaraYsAGQbCc4EQZHcQLKnBU0bUQUxKMOwJ1M9 tXwvDBGKNaHhF7tahyxlCK0uLSEyA329oWucqfZgDYT8GLTvUc5PEETfDBD1BAUrmHTyKtAyXZWDBSmu LS8LdVWtXIK6tW3uSTdhVZKqQFDsA3cCMoOcsZexFK 51bGwgbnVsbCBdDQo+Vn1AQJ1dg4ErGZf5fjZsKWcwQLO7INpgEZJnOEZzPGUhBRQ5FUT0QUGKAiRbPD WkMIUnCGizNLHwZMGquu1MISDpWQCxQUE6LODbFFVuFEKhZYmwKTDyIMHtIIE9IQMnKXAwBF1FWeCbTU DhOHTnLCakLRUnZASeky9IXNStIKNzMtcxKbKuEIMr XEViZGqeTJPzKUAxYTR7CVIaYVOwDC5JBxGdMHAlZHN1IkTuQEBuKOUocb6WOPSeUGGqBJZcACOyRNAj ZVRtQZrgUHAgGBA8Ovg8MALnLAErEY0YMmNdPHPyBVr4BPYqRCAvHJPjmr4SXGTjFOMdXUe6KINtSKCk WUQwUNrqLAImSYShRuAkBBRhEMXfDC1OUaXmCLAoPI Y1LpxlQNQxJVKdnx5TBAWbZYZmOdH0DgUoKLHeGLTsRUfmIWBdXKXoDUWuTMHzKPJqLU3UVpLwABLkAT TlQWArJKYyFYChxj5MGOUgWHFkTiLkDvCkHIDpMRZbJOiiFRZcDUP9QWvqBJEaDEZiPP4TFqHcATJsWI V5IQJpVJMgHNKxrz7KZRScTWZbBJu1LdXmZQAdSPQf YQkfOOUuOXP5CEWzZWYuXUJiFT7UThKqCBLrMEZcBufwSACnTSNfod7YWXCfOBTjAuDdLaRcLWBoLUTi WEhtHNIeXMP7XJp6JMMqSPGaRX1MUkVbLRGrOfk7NYKbOCCwMSQorr4PVIEeZUIuRNCjHAFzBDFwCWMf FFlxNIUbRFW3QuEcYIPtPOOrKI7FDbUxVYTtIoq4HT zeSWWxOGLxgz5HKKRbHHLjSXG5VeAlQEXxBTSsAEetUBIkHFU0MpDqIEScZHFoHB8JKdLjRCXkAsi7FX dnLBDuMATwgd8NKLOkDMCrHBu1CrJzKQIaBYAvUBmsSWRfNDSpYOX1AGQyJNEpOE4WMaSlTNNxNzArAf saPKVmMWBquk3CYXXqKROlHVL3VsKgXARxPTAyQYqw PGZvIDFfDTYfXUTkTQCmHC1NPzXeMIAcNcXpVaOvQRGgCXUgwp6LQARwBMQmDhT7WuCrZJEgZZVeTNg5 njTtuPRcWRq7UV1WV4MmjoTbUcbHRu4Nf028WZL3PAAfEg8ML1syDy6pLYVvESLCLf9KFQb6IvMyLftz IMa7X2B1JQQ0QTYwNYj7CpPoTUL4BGhvJlH+IDxiYj ZbEZGeJpXmKbk7BoudHqV2OzTrAmF6IxG8RFIqKZ3bROAXEh8+MGoabTXbcOsvSEDGInAmFUY7SExjKX VPR[facility]0K ID Date Data Source [id number] 10/11/2020 01:38:[address] [facility] Name Value Range Interpretation Code Description Data Verna rce(s) Supporting Document(s) History and Physical [facility] KZHZIv0qGeFKMeEq96/JVDhyLIJge7ClCKpiCVb9FGsqYZRjV8FiJQA5hI9pQCI0AGjIMfAqLoMaYEUp lbm [file] AgICAgICAgICAgICAgICAgICAgICAgICAgICAgICAg JDWlAYHpKUCrYDZfAJMzYQKbMHGaLVCvXGMrWGYaUEWbDYGlCRKpTLXaUVEvHA6LVDDdRWPnQTKjQCXb ICAgICAgICAgICAgICAgICAgICAgICAgICAgICAgICAgICAgICAgICAgICAgICAgICAgICAgICAgICAg GHRaRIUnLVEuOHDaALDpRHKsMTOxEZTjISDwYR1DCB AgICAgICAgICAgICAgICAgICAgICAgICAgICAgICAgICAgICAgICAgICAgICAgICAgICAgICAgICAgIC CuKZJlVUUmDTYbQLLgPMBzZMXyUBCyFYJwTSObYXKaEZWlNIFkQG5XZVKaMLVdMQLyBCLiJBLpIVQbSI AgICAgICAgICAgICAgICAgICAgICAgICAgICAgICAg RMGmCEJfAUBkVCFnUAZpOORcEYUaNYLxRQIrBFXnESIaGCJmQNKkIVShDOMbGKTjCZ0CSCWmTLFrZSAb ICAgICAgICAgICAgICAgICAgICAgICAgICAgICAgICAgICAgICAgICAgICAgICAgICAgICAgICAgICAg ICAgICAgICAgICAgICAgICAgICAgICAgICAgICAgIA 0KICAgICAgICAgICAgICAgICAgICAgICAgICAgICAgICAgICAgICAgICAgICAgICAgICAgICAgICAgIC JfKOUvNPAsMCEoDUUrYZHgZTLkSXNeUPJnXGJeBZEzSNCiXGZcQUKiCF2FGUKhWYElKXZvICGfFBWrEW AgICAgICAgICAgICAgICAgICAgICAgICAgICAgICAg FXNgUPSmMCXmXCGjRFXeBITsUVQnBZMfZMXwKGMeGWUxBZXnTKFqWQOzAXPgRYHsJKEaDW0YWVLgMANw ICAgICAgICAgICAgICAgICAgICAgICAgICAgICAgICAgICAgICAgICAgICAgICAgICAgICAgICAgICAg ICAgICAgICAgICAgICAgICAgICAgICAgICAgICAgIC SoEH5YBWQvALTbEKBwOFQuQFPkAHVyFDAdLDNsEEBlCBWxSHAuFMImLCDrMSJsKOKySFChKFBaSPQqUF KxPMYrQAYfUNYhKDOnIHFvMVQjAMGaINUaCLTyLECbDMQuVYGjTLNnVECgPF4NHPSwMHUsFICbLHYyZW AgICAgICAgICAgICAgICAgICAgICAgICAgICAgICAg SHGvWGZdPBKmSFOtZBSzWLIbUWWgECLgVMEjZLYfSIZmLVIlNBWrOAAyYMZdFGIaLJLgHULoCJ5QHC95 vIFcs6K4HKTgWZ9zwat/Dp1SQYiveoTlpPLcHV9JEuDlKN3gdg6DQhVpTN0bkj9UCWiIOtGzJ0P6jHLz OBEdSYGLMzYzE26iEWplEq53BVefGPKqPlGmRCq4Fa 6ZEzSbW2zmRWNsHoT3QCGjVvF2GUCrYlH2URXoHnGqKUPmDVXuAPYqZZSZKEI8SLXbKzLeKvWmPSFpBR 8YDYCwK622iwJtYc6OZy2ESnKdCJ6sey3VDAWcCBElUaiYUqd1ILbkSN0QmBRzmFZ9BQUqPNZGPeKvR1 mov8QnZEHnUOLHXPubSB1Vh1LlmGEgCEa+Lz8GNT0x z3QyHMx2AQCmKC8lje8LQBdKOjKqG9WkfHifFNsoYJHmuFCLlDXsoFPhSJJvcUt4BUQPZRBasGQ5KqCq XqMbRjCzLHw3UWMlBY0iOEvbWD1DXFC2BQykFRXjWHKlI9bTTpTlVYYjBoPeeTdyLQ4HXhXpL6LbwjVm nGZ5SqBkTRJOZz6+SEdvkiGkVxnLEsA7DUZme2SrDA x5RB5SWOFwQRghWU7GEEYrxP0cDEejQR3QNjD9GDWjSNKCRmWzG78bhBKtGEe6F6BiFcKnXIVlWczmHQ MgPDwvTmFtZXMgWyBdDQogID4+ID4+HMjuDO0UVOxopyGbLYArOc2VHNEuWFUgLS3wMNJhWOLmT2A4eG djXRMWHgNgX1xcrxqbDE7fNLWtP970hIvzruOdCKFl GXXnAm1EQKClNWW5QANmgCCbLNJwJARZZSooIO0AsVWnHYF5oX9bRXaeRBAjKHEbG6jNCtUzzTklLW80 bGwgbnVsbCBdDQo+Jv2MYE4xz9BuMDd3gcIiKWzqULM5PZrqGZBhBUVqMVIwXND4JUN4AEJOBsKqXXFv INDkCKqeNCPgFKTavq6VSTEhIVGfABF7SgEnCEExGL MtDLbvWXYbXMS5BIW2IDSrRXSpOF3RNkHyCDSjTBIpMCegNWWaGMNakm2RSCLuSBAsNFN4RUDiUEImFK BfJPuyCYXlVFT2Lhk5DXAzZEZkGQ0AHtDiMTXfLGsvESJyVZKzYTYgdb7WHHYgXELoMfOmXUCyPACpTS CzHMqkZGVjETTpRrJkOKGxQCSoOW0VFmWiSUXpGIO0 GkQqYLAdQLQtcc1XQLJdWGItYJK6KxKeBHPmZFInVSujSDAtNPL4Wxl6URMlFHDbXR5TWrNtHTLxJRb6 UeqcCXFtGODvar5WRWEzBQWkFjz9AEKnEFViGWZoKIgnHNGuBBQrAJYbUHCqOVOrFW7CByBiUZWuCcJh HGuwPQIoTKUsol5OPUSsEIIoHLduPtAeDFPwJANbZO ldUOSzNDVwFNGyOXVyOUYwFH1XBdDhBQSzZxSpDXXkEMQnYEMric9GOAHmOTVbGxW5QNHaOKMhTUGnVL fvMMFcRLGoANJcEPGnDPOwVC2KJaLwIOTsZsN6EhCaOLWtHFIuwb0LZESjMMCmCXLsLIXhHZOhFRKxSH gxSDZnJHB6CDOwJZOhWPMuUS7DPtQbAVGeYcV4KtFo CPWfUIGmuw2LYRAhHAChDXz6KJEhKXNoXRTzZHyvCYIvPAS2DUTzVKDfVTAeLY8VChYrMKFiTrdoWYDp KNPhSLSzso0EJTIiRBZjTtAhKyRaYTHsXGAhBUrfFGLsVZF2PDO8HDOtJFOzBW8XEpDwYDPkLya7VkAx NPIaXOKknq4VBNSnKYRxXRA8UXLkGRAgKXSqARmoGN GpFGB3UZT1UMHuJZDhZY6GMuUdKCCwQaC0GaWyGOGnLFVues0ORBQxLMPgXPK3SjHiGTFzBHGhPAjvKO LpNTE3FqG9JFCpLWAwCV1GDdSeISSlKtC8XQuyNEQaLCMejq2WPXAiTVUyDRR3LYTpJPDrPOXqJNimND GwKRE2AQobNPGdDLDyIM7DNjEuCYDnQkOyWDXqUTRk LVVxdn5WILVpDRJxLHO9MWIwFCSqKXNeRGtqPXGsCWT8PgI5LNKmATImXV8BBiEtMVFsPzfeLGDbVAEd NFWzno8UWSLsEUYpIcF6XSJbAIBvDHXtADlgQPSdRKH9YSOjHCVoVFQhDR6YIfQbWJizLDKAWbu2USxm O1h9EER7Cc8DT7Uvt2VsLAPpLNGJZRnoKF5idwJkRS VdPn6BR1lKXtvhA2F9T2W0ZrL7AMQ8MtY9DhJwEXr1LzF4CFEsKnT7Qt2rSARqUhPiPwqgAWspDNHmOV WsEGEkYfJfKERtTAWyJQhaEzEoAF4OBn4WOlP2CPX6qTLmEi6EZtp6PYTVKoVxBT6KOPc= ID Date Data Source [id number] 10/11/2020 11:22:[address] [facility] Name Value Range Interpretation Code Description Data Verna rce(s) Supporting Document(s) Consultation [facility] SECPQw9sEkKJHdIs38/ZCIikOHBnv9YaUArnAAe5ROojSUTiK0RoAGV0uK5hPGB7TZsMVdPiNsEnIDWr lbm [file] ICAgICAgICAgICAgICAgICAgICAgICAgICAgICAgIC AgICAgICAgICAgICAgICAgICANCiAgICAgICAgICAgICAgICAgICAgICAgICAgICAgICAgICAgICAgIC AgICAgICAgICAgICAgICAgICAgICAgICAgICAgICAgICAgICAgICAgICAgICAgICAgICAgICAgICAgIC ANCiAgICAgICAgICAgICAgICAgICAgICAgICAgICAg ICAgICAgICAgICAgICAgICAgICAgICAgICAgICAgICAgICAgICAgICAgICAgICAgICAgICAgICAgICAg ICAgICAgICAgICANCiAgICAgICAgICAgICAgICAgICAgICAgICAgICAgICAgICAgICAgICAgICAgICAg ICAgICAgICAgICAgICAgICAgICAgICAgICAgICAgIC AgICAgICAgICAgICAgICAgICAgICANCiAgICAgICAgICAgICAgICAgICAgICAgICAgICAgICAgICAgIC AgICAgICAgICAgICAgICAgICAgICAgICAgICAgICAgICAgICAgICAgICAgICAgICAgICAgICAgICAgIC AgICANCiAgICAgICAgICAgICAgICAgICAgICAgICAg ICAgICAgICAgICAgICAgICAgICAgICAgICAgICAgICAgICAgICAgICAgICAgICAgICAgICAgICAgICAg ICAgICAgICAgICAgICANCiAgICAgICAgICAgICAgICAgICAgICAgICAgICAgICAgICAgICAgICAgICAg ICAgICAgICAgICAgICAgICAgICAgICAgICAgICAgIC AgICAgICAgICAgICAgICAgICAgICAgICANCiAgICAgICAgICAgICAgICAgICAgICAgICAgICAgICAgIC AgICAgICAgICAgICAgICAgICAgICAgICAgICAgICAgICAgICAgICAgICAgICAgICAgICAgICAgICAgIC AgICAgICANCiAgICAgICAgICAgICAgICAgICAgICAg ICAgICAgICAgICAgICAgICAgICAgICAgICAgICAgICAgICAgICAgICAgICAgICAgICAgICAgICAgICAg ICAgICAgICAgICAgICAgICANCiAgICAgICAgICAgICAgICAgICAgICAgICAgICAgICAgICAgICAgICAg ICAgICAgICAgICAgICAgICAgICAgICAgICAgICAgIC AgICAgICAgICAgICAgICAgICAgICAgICAgICANCjw/cXNfA3ujqABrleT8F6yjBk8HWt6ATY4kt6AmTT YeEXeyakMdUvyKCgWdJLSuOibEReh7RWhaWB2FfKIyR2GxX3McIDizUE9YZIJjODDblMLdRSVzTFQhWx W9JMFoASdcTH5MgYYuDDxaWMNrIPMkQmGpFXDuCZAp XRMzGQXhHHFRWJHqBCOnIlRlSQtzBR6Tm7XdkSU5MUx+Lg4NQQ6nh7FaJEhwUhUqBS4cgy2RRZwRVxSq D3YzggL7GHU9TAUyPk3PWLTyMBQiiHMqDILdXNMZOyRdS0CajB48DXZWXe7+GTrhluHuVitJCtT8EODx l5HbSIp9VD6APWFsFWn4hBAqD58pr0MumJFyAdldRY BoaMRwQEMmznKjgb7tWRxHU0ccHLMpRM8qIw4xCYSjECYtWzBtMHNFDJ6TMVUxBYSkqOLrBUShHZYTDU 6NWEkqNVB2SOHxkaZxvJVsVImqZQ1CAXSqiyUxVsaaGKBYRFg+Zh6EZE4cj5SuOFsnKXLuPC6ajy6BNN pHGnFsD9Z1kGGnX4X8NZmyXj0IEZWjCIJkKpWtKVMU LJvmHT1YNB7ulgV9CF8LnLLiLKKbWYXetOUhHLi4D63rkADoWIowNA7MPRJ+Reece+Yk6JLPAuDHOfYNRn InJuSGZOMbZdK9TvU3CFf6CxN2GoVF24lDyzjnRkEXbnMH6QEO0nDFMfLIBHNL8LbEIqcV2otbGeLeVw BPIWUpUzX02ikIIjAMOrIDP8TTHzMk2NFBXbR4Hbqg PyrWjbhuIaVHQmKKBIWF4XGLwulwMmjCJrwWhuHP52iIbkIC7ROm0OMaEwPF1ilx7TaJBhRu7SPSKhQJ 4NSJLqVTQxBNNvMQB1YOOmYtYpUXdkSSUcCDAyTDH9FZVkTRJhSM0VEdSfGJSzAfDnEMSyDQPpYTMiiw 2BOECeQHJpJRr7ASVrHXEqJCMdFLunNMOlEDFbMKS5 DEFcPZNqMY9YEbNzGSQaGMG7DEOlDANrLPHhdt4FHSWrXSAzRNC1EdFzMSGvTODqSDhwZDVbWPA7LJw8 COViUBTlGO7NPvMxBSTeNYz5AIWkYVKsIJFqxc1QINFnYKPnABo6QGKaERKeFUAuGMeoPAAbJERcIRa2 TFCuGVXyOD4KBbPsXAPvKJRpHHKvSQDmVZYosr5HIF YtVWTxTZY4GZLcWXSgEBLhPSztZQPhNON6LROuWMJrNHOkDZ2GCmTeKMKdQIigBhrdSVLqCGUflg9BPB UfHAIbQOm5EJMbQVXwAAUgNUhbAZFzPXH0IWt4QUIdRMJoBK7IGaSkDDMwXBhiDcwfMTBwTUYgbv8NJY LeOCErBMQoAnYsYTEnSADdZMlxLJCzRVCiSON6WRRk YGJcDL2HCqWfZIMdWgJ0PpjgTPPrFPVytu0ETMQxUZBtHhFqBeOaRAJcNIEgAAlwFJMbIUVkZTZkYRWl MXYiXS7DKxEvVDGtCpJ2AbkhWVQfZTPxbg7BVBRfNBNeAlg8NGMeLYAhSKLbBWkpRFVsGGRtCBM8AVLh PYTiCL6CUnEkFDBaQtP5IzNtTPClHUKhwz5EOZXjKH AeUVi4QDJiWCDdTVMtMDeqPWTsJAQ5JGBfCUEtTTMeRV5CYuGdWGHtShOqXCMtKAIoTPXdtk8NdGZahK hqen6ZYSoPUj3RfYkxCYQlGQnpUc2lnHTsUORsUUCEBj7TlwFzXLEtJRXXKMizPSJjRCDmTAAcBam3UV A5Jse2F1W0KvG0SGL8QBQ4DCyjTHWjFiG7YOGeYNR2 ZIebQeo4VRz4TUSpAPSkBtp3QZlbR5A6BXH+XB2aYNu+Cn0Db9CcvrJ2fvUbSXmzGAA5OG0DGXRDF1GA Cg== ID Date Data Source [id number] 10/11/2020 07:36:[address] [facility] Name Value Range Interpretation Code Description Data Verna rce(s) Supporting Document(s) [place] [Moles/volume] in Serum or Plasma 0.60-1.20 L [facility] ID Date Data Source [id number] 10/10/2020 10:23:00 AM EDT [facility] Name Value Range Interpretation Code Description Data Verna rce(s) Supporting Document(s) SARS coronavirus 2 RNA [Presence] in Res piratory specimen by SABA with probe detection NEGATIVE [facility] This lab was ordered by [facility] a nd reported by [facility]. ID Date Data Source [id number] 10/03/2020 09:49:00 AM EDT [facility] Name Value Range Interpretation Code Description Data Verna rce(s) Supporting Document(s) SARS coronavirus 2 RNA [Presence] in Res piratory specimen by SABA with probe detection NEGATIVE [facility] This lab was ordered by [facility] a nd reported by [facility]. ID Date Data Source [id number] 09/01/2020 08:07:00 PM EDT [facility] Name Value Range Interpretation Code Description Data Verna rce(s) Supporting Document(s) SARS coronavirus 2 RNA [Presence] in Res piratory specimen by SABA with probe detection NEGATIVE [facility] This lab was ordered by [facility] a nd reported by [facility]. ID Date Data Source PAIN MGMT UR 13 PANEL [id number] 09/01/2020 12:00:00 AM EDT eC W1 ([facility]) Name Value Range Interpretation Code Description Data Verna rce(s) Supporting Document(s) Negative Lidxjy=0669 AMPHETAMINE SCREEN, URIN E eCW1 ([facility]) Negative Awlyps=512 BARBITURATES SCREEN, URIN E eCW1 ([facility]) Negative Tavivx=355 BENZODIAZEPINES, URINE SC REEN eCW1 ([facility]) Negative Cxnlhq=089 COCAINE SCREEN, URINE eCW 1 ([facility]) Negative Cutoff=20 CANNABINOID SCREEN, URINE eCW1 ([facility]) Negative Cskcwq=417 OPIATE SCREEN, URINE eCW1 ([facility]) Negative Cutoff=25 PCP SCREEN, URINE eCW1 ([facility]) Negative Fdoubq=809 OXYCODONE, SCREEN, URINE eCW1 ([facility]) Negative Ygsbpm=852 TRAMADOL SCREEN, URINE eC W1 ([facility]) Negative Vdjzth=445 PROPOXYPHENE URINE, SCREE N eCW1 ([facility]) Negative Gpbuyu=652 MEPERIDINE, URINE SCREEN eCW1 ([facility]) Negative Etcmlp=086 METHADONE, URINE SCREEN e CW1 ([facility]) . PLEASE NOTE: eCW1 ([facility]) ID Date Data Source [id number] 08/19/2020 03:09:00 AM EDT [facility] Name Value Range Interpretation Code Description Data Verna rce(s) Supporting Document(s) SARS coronavirus 2 RNA [Presence] in Res piratory specimen by SABA with probe detection NEGATIVE [facility] This lab was ordered by [facility] a nd reported by [facility]. Procedure Social History Code Duration Value Status Description Data Source(s ) Alcohol intake 10/10/2020 12:00:00 AM EDT Ex-drinker (finding) comp leted Ex- drinker (finding) [facility] Tobacco use and exposure 10/10/2020 12:00:00 AM EDT Never used co mpleted Never used [facility] Smoking 10/10/2020 12:00:00 AM EDT Current every day smoker co mpleted Current every day smoker [facility] Smoking 09/19/2020 12:00:00 AM EDT Current Smoker completed Curre nt Smoker eCW1 ([facility]) Smoking 09/01/2020 12:00:00 AM EDT Current Smoker completed Curre nt Smoker eCW1 ([facility]) Tobacco smoking status [facility] 07/06/2020 12:00:00 AM EST Unknown if e michi smoked [facility] Vital Signs ID Date Data Source UNK Name Value Range Interpretation Code Description Data Source(s) Body weight 128.12 [lb_av] 128.12 [lb_av] eCW1 ([facility]) Body height 64 [in_i] 64 [in_i] eCW1 ([facility]) Body mass index (BMI) [Ratio] 21.99 kg/m2 21.99 kg/m2 eCW1 ([facility]) Heart rate 82 /min 82 /min eCW1 ([facility]) Respiratory rate 19 /min 19 /min eCW1 ([facility]) Body temperature 98 [degF] 98 [degF] eCW1 ([facility]) Systolic blood pressure 111 mm[Hg] 111 mm[Hg] e CW1 ([facility]) Diastolic blood pressure 73 mm[Hg] 73 mm[Hg] eCW1 ([facility]) Body weight 115 [lb_av] 115 [lb_av] eCW1 ([facility]) Body height 64 [in_i] 64 [in_i] eCW1 ([facility]) Systolic blood pressure 140 mm[Hg] 140 mm[Hg] e CW1 ([facility]) Respiratory rate 18 /min 18 /min eCW1 ([facility]) Body mass index (BMI) [Ratio] 19.74 kg/m2 19.74 kg/m2 eCW1 ([facility]) Heart rate 96 /min 96 /min eCW1 ([facility]) Body temperature 98 [degF] 98 [degF] eCW1 ([facility]) Diastolic blood pressure 96 mm[Hg] 96 mm[Hg] eCW1 ([facility]) ID Date Data Source [id number] 10/20/2020 04:13:17 PM [facility] Name Value Range Interpretation Code Description Data Source(s) WEIGHT RECORDED 128.3 lb 128.3 lb [facility] Body height Measured 63 in 63 in [facility] TRANSFER FROM [facility] Patient Treatment Plan of Care Planned Activity Planned Date Details Description Data Source (s) olanzapine 10 MG Oral Tablet 10/20/2020 12:00:00 AM [facility] Carbonate 450 MG Extended Release Oral Tablet 10/20/2020 12:00:00 AM [facility]spital Magnesium Hydroxide 80 MG/ML Oral Suspension 10/14/2020 06:44:57 PM [facility] Acetaminophen 325 MG Oral Tablet 10/10/2020 04:15:58 PM [facility] 24 HR Nicotine 0.875 MG/HR Transdermal Patch 10/06/2020 12:00:00 AM [facility] olanzapine 10 MG Oral Tablet 10/06/2020 12:00:00 AM [facility] montelukast 10 MG Oral Tablet 10/06/2020 12:00:00 AM [facility] Omeprazole 20 MG Delayed Release Oral Capsule 10/06/2020 12:00:00 A M [facility] Tranylcypromine 10 MG Oral Tablet 09/26/2020 12:00:00 AM [facility] Ergocalciferol 01848 UNT Oral Capsule 09/26/2020 12:00:00 AM [facility] Hydroxyzine Hydrochloride 50 MG Oral Tablet 09/26/2020 12:00:00 AM [facility] lamotrigine 150 MG Oral Tablet 09/26/2020 12:00:00 AM [facility] [place] Carbonate 150 MG Oral Capsule 09/14/2020 12:00:00 AM [facility] Fluticasone Propionate 50 MCG/ACT Nasal Suspension (FL ONASE) 09/01/2020 12:00:00 AM [facility] Cholecalciferol 71230 UNT Oral Capsule 09/01/2020 12:00:00 AM [facility] eCW1 ([facility])
[2021-03-15] MEDS ORDERED: POTASSIUM CHLORIDE 10MEQ SR TABLET PO ONE (20:30)
--- NOTE | 2021-03-16 06:08 | MHIPNPDOC ---
[facility] Progress Note Progress Note DATE OF SERVICE: 03/16/21 Patient presented by PSA, meets criteria for involuntary admission. Reports worsening SI in context of starting lithium and worsening depression since returning from [place]. see PSA note for details. Vital Signs Vital Signs Date Time Temp Pulse Resp B/P (MAP) Pulse Ox O2 Delivery O2 Flow Rate FiO2 03/16/21 05:32 97.4 64 18 81/51 (61) 98 03/15/21 22:24 Room Air Laboratory Data 24H Labs Laboratory Tests 2 03/15/21 18:40: Urine Opiates Screen NEGATIVE, Urine Methadone Screen NEGATIVE, Urine Barbiturates Screen NEGATIVE, Urine Phencyclidine Screen NEGATIVE, Urine Amphetamines Screen NEGATIVE, Urine Benzodiazepines Screen NEGATIVE, Urine Cocaine Metabolite Screen NEGATIVE, Urine Cannabinoids Screen NEGATIVE 03/15/21 18:43: Nucleated Red Blood Cells % (auto) 0.0, Anion Gap 5L, Glomerular Filtration Rate > 60.0, Calcium Level 9.4, Total Bilirubin 0.7, Direct Bilirubin 0.1, Aspartate Amino Transf (AST/SGOT) 24, Alanine Aminotransferase (ALT/SGPT) 20, Alkaline Phosphatase 55, Total Protein 7.0, Albumin 3.8, Albumin/Globulin Ratio 1.2, Thyroid Stimulating Hormone (TSH) 0.778, Human Chorionic Gonadotropin, Qual NEGATIVE, Salicylates Level < 1.7L, Acetaminophen Level < 2.0L, [place] Level 0.62, Ethyl Alcohol Level 0.006 CBC/BMP Laboratory Tests 03/15/21 18:43 Allergies Coded Allergies: hydrocodone (Verified Allergy, Unknown, 05/01/19) lisdexamfetamine (Verified Adverse Reaction, Unknown, hallucinations, 05/01/19) trazodone (Verified Adverse Reaction, Unknown, "numbness", 05/01/19) ORTIZ BULL MD Mar 16, 2021 06:07
[2021-03-16] MEDS ORDERED: LITH300T PO (08:29)
--- NOTE | 2021-03-16 08:36 | ECGEPIP ---
[facility] - ED Test Date: 2021-03-16 Pat Name: AMOR KATHLEEN Department: Room: - Gender: Female Sde: [facility] : 1990 Requested By: KAMALA Nicole Order Number: [id number] Reading MD: Doug Blackwell Measurements Intervals [place] Rate: 60 P: 57 NE: 178 QRS: 69 QRSD: 90 T: 79 QT: 446 QTc: 446 Interpretive Statements Normal sinus rhythm SIMILAR TO 10/10/20 Electronically Signed on 03-16-2021 8:35:50 EDT by Doug Blackwell
[2021-03-16 08:47] LABS: BLOOD UREA NITROGEN 5 MG/DL (7-18); CALCIUM LEVEL 9.2 MG/DL (8.5-10.1); CARBON DIOXIDE LEVEL 32 MEQ/L (21-32); CHLORIDE LEVEL 92 MEQ/L (98-107); CREATININE FOR GFR 0.82 MG/DL (0.55-1.30); GLOMERULAR FILTRATION RATE > 60.0 (>60); GLUCOSE, FASTING 92 MG/DL (70-100); LITHIUM LEVEL 0.52 MEQ/L (0.60-1.20); POTASSIUM SERUM 3.4 MEQ/L (3.5-5.1); SODIUM LEVEL 129 MEQ/L (136-145)
[2021-03-16] MEDS ORDERED: LITHIUM CARBONATE 300 MG **CR** TAB PO SCH (09:00)
[2021-03-16] MEDS ORDERED: SERTRALINE HCL 50 MG TAB PO SCH (09:00)
[2021-03-16] MEDS ORDERED: FLUTISP (09:52)
[2021-03-16] MEDS ORDERED: HOME MED LIST COMPLETE! XX SCH (09:55)
[2021-03-16] MEDS ORDERED: POTASSIUM CHLORIDE 10MEQ SR TABLET PO ONE (13:00)
[2021-03-16 14:22] LABS: RSV AMPLIFICATION NEGATIVE (NEGATIVE)
[2021-03-16] MEDS ORDERED: MAALOX 30 ML SUSP *UDC PO PRN (14:25)
[2021-03-16] MEDS ORDERED: ACETAMINOPHEN TAB 650MG DOSE (2X325MG) PO PRN (14:25)
--- OUTSIDE RECORDS SUMMARY | 2021-03-16 14:40 | CCD ---
Author Author [facility] Organization [facility] ems Address Unknown Phone Unavailable Care Team Providers Care Sccm Administrator Name Role Phone Chris Suazo Unavailable PROBLEMS Type Condition ICD9-CM Code VWB95-AM Code Onset Dates Condition S tatus W/U Status Risk SNOMED Code Notes Problem H/o Lyme disease Z86.19 Active confirmed 429 021419 Problem Endometriosis N80.9 Active confirmed 213627 003 Problem Bipolar disorder in partial remission, most recent episode unspecified type F31.70 Active confirmed 3683856 Problem Secondary amenorrhea N91.1 Active confirmed 34411715 Problem Amenorrhea N91.2 Active confirmed 79146834 Problem Gastroesophageal reflux disease, esophagitis pre sence not specified K21.9 Active confirmed 918108328 Problem Arthritis M19.90 Active confirmed 4123160 Problem Other fatigue R53.83 Active confirmed 374981 01 Problem 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 Active confirmed 099494081869991 Problem Anorexia R63.0 Active confirmed 39476200 Problem Bipolar affective disorder, currently manic, moderate F31.12 Active confirmed 788726782 Problem Bulimia nervosa F50.2 Active confirmed 7800 4001 Problem Other malaise R53.81 Active confirmed 954286 006 Problem Constipation by delayed colonic transit K59.01 Active confirmed 28756735 Problem Anemia, unspecified type D64.9 Active confirmed 365633544 Problem Allergic rhinitis, unspecified seasonality, unspecifie d trigger J30.9 Active confirmed 30532610 ALLERGIES Allergen (clinical drug ingredient) Drug/Non Drug Allergy do cumented on EMR Reaction Allergy Type Onset Date Status vicodin Nausea/Vomiting Non Drug Allergy Act kate Environmental Unknown Non Drug Allergy Activ e trazadone numbness all over Non Drug Allergy A ctive ENCOUNTERS from 1990 to 2021-03-15 Encounter Location Date Provider Diagnosis [facility] Devan ESPINOZA [phone] [place] [id number] Mar, 2021 Chrsi Suazo IMMUNIZATIONS Vaccine Route Administration Date Status Influenza 18 yrs & older Flublok Unknown Apr 21, 2019 Refused Influenza 6mo & up Fluzone Unknown Apr 10, 2018 Refus ed SOCIAL HISTORY Tobacco Use: Social History Observation Description Date Details (start date - stop date) Current Smoker Sex Assigned At : Social History Observation Description Sex Assigned At Unknown Education: Question Answer Notes Level of Education: College Audit Question Answer Notes Total Score: 0 Interpretation: Alcohol Education Catholic: Question Answer Notes Catholic 08 [employer] Sexual Hx: Question Answer Notes Had sex in the last 12 months (vaginal, oral, or anal)? Yes LMP: 03/2018 Have you ever had an STD? Yes with Men only Use protection? No Other? Yes Drug and Alcohol Question Answer Notes Total Score: 0 Interpretation: No problems reported Alcohol Screening: Question Answer Notes Did you have a drink containing alcohol in the past year? No Points 0 Interpretation Negative BMI Care Goal Follow-Up Question Answer Notes Above Normal BMI Follow-Up Dietary management educatio n, guidance, and counseling Tobacco Use: Question Answer Notes Are you a: current smoker Additional Findings: Tobacco User none Additional Findings: Tobacco Non-User no other findings Patient counseled on the dangers of tobacco use and urged to quit: 09/19/2020 How many cigarettes a day do you smoke? 11-20 Are you interested in quitting? Not ready to quit Counseled the patient on smoking effects, education provided 09/19/2020 REASON FOR REFERRAL No Information VITAL SIGNS No information MEDICATIONS Medication SIG (Take, Route, Frequency, Duration) Notes Start Da te End Date Status [place] Carbonate 300 MG 1 capsule at bedtime Orally Once a day Not-Taking SEROquel 25 mg --- Orally 1 tab AM 1 tab afternoon 1 @ dinner 2 @ Bed time Not-Taking Fluticasone Propionate 50 MCG/ACT 1 spray in each nost ril Nasally Once a day for 30 Days Aug, Active Senna 8.6 MG 2 capsules at bedtime as needed Orally bid for 3 0 days Jul, Active lamoTRIgine 150 MG 1 tablet Orally bid Active Omeprazole 20 MG TAKE 1 CAPSULE BY MOUTH EVERY DAY for 90 Active Parnate 10 MG 1 tablet Orally Twice a day for 30 day(s) Active Montelukast Sodium 10 MG take one tablet by mouth every day in the evening Active Vitamin D3 1.25 MG (56179 UT) 1 capsule Orally weekly for 30 day (s) Aug, Active Amoxicillin-Pot Clavulanate 875-125 MG 1 tablet Orally every 12 hrs for 10 day(s) Jul, Not-Taking PROCEDURES No Information RESULTS No Results REASON FOR VISIT Refill - Flonase MEDICAL (GENERAL) HISTORY Type Description Date Medical History lyme disease, treated after a year of being sick. Borderline serology 11/2012 and 11/2013 4/10 IGG bands positive Medical History mono Medical History broke back 2009. surgery needed to stabi lize Medical History Sinus bradycardia Medical History history of bipolar disorder with multiple psychiatric admissions Medical History Lumbar puncture Normal WBC p rotein has 3/10 positive IGG bands same as serology Surgical History back surgery L1 T12 fusion w/kyphoplasty 2009 Surgical History removal of hardware from back surgery 20 11 Hospitalization History anorexia,bipolar depression([place]) 06/2008 Hospitalization History seizure related to eating di sorder bipolar manic episode ([place]) 12/2010 [facility] Hospital[facility] History heart palpitations/[facility] 09/05/2014 Hospitalization History admitted to [facility] behavioral health f or med change 12/2014 Hospitalization History [place] 07/2016 Hospitalization History [facility] 07/2016,08/2016 Hospitalization History [facility]- Med[facility]Surg.: hypokalemia 09/2017 Hospitalization History [facility] inpatient MH 06/2019 Hospitalization History [facility] Mental health 07/2020 Hospitalization History [facility] Mental Health 09/02/2020 Goals Section No Information Health Concerns No Information MEDICAL EQUIPMENT No Information MENTAL STATUS No Information FUNCTIONAL STATUS No Information ASSESSMENTS No Information PLAN OF TREATMENT Medication Medication Name Sig Start Date Stop Date Fluticasone Propionate 50 MCG/ACT 1 spray in each nost ril Nasally Once a day for 30 Days Aug, Omeprazole 20 MG TAKE 1 CAPSULE BY MOUTH EVERY DAY for 90 Insurance Providers Payer Name Payer Address Payer Phone Insured Name Patient Relati onship to Insured Coverage Start Date Coverage End Date MEDICARE Part A and B [address] [facility] [phone] AMOR JANE
--- OUTSIDE RECORDS SUMMARY | 2021-03-16 14:41 | CCD ---
Author Author [facility] Organization [facility] Address Unknown Phone Unavailable Care Team Providers Care Manager Professional Development Name Role Phone Jorge Suazo MD Unavailable Unavailable Jorge Suazo [...] Unavailable Unavailable Jorge Suazo MD Unavailable Unavailable RENEA II, F IVÁN DO [...] RENEA II, F IVÁN DO Unavailable Unavailable Ibanez, Marta LENS INSPECTOR Unavailable Unavailable Ibanez, Marta LENS INSPECTOR Unavailable Unavailable Ibanez, Marta LENS INSPECTOR Unavailable Unavailable Ibanez, Marta LENS INSPECTOR Unavailable Unavailable Ibanez, Marta LENS INSPECTOR Unavailable Unavailable Ibanez, Marta LENS INSPECTOR Unavailable Unavailable Ibanez, Marta LENS INSPECTOR Unavailable Unavailable Ibanez, Marta LENS INSPECTOR Unavailable Unavailable Ibanez, Marta LENS INSPECTOR Unavailable Unavailable Ibanez, Marta LENS INSPECTOR Unavailable Unavailable Ibanez, Marta LENS INSPECTOR Unavailable Unavailable Ibanez, Marta LENS INSPECTOR Unavailable Unavailable Ibanez, Marta LENS INSPECTOR Unavailable Unavailable Ibanez, Marta LENS INSPECTOR Unavailable Unavailable Ibanez, Marta LENS INSPECTOR Unavailable Unavailable Ibanez, Marta LENS INSPECTOR Unavailable Unavailable Ibanez, Marta LENS INSPECTOR Unavailable Unavailable Ibanez, Marta LENS INSPECTOR Unavailable Unavailable Ibanez, Marta LENS INSPECTOR Unavailable Unavailable Ibanez, Marta LENS INSPECTOR Unavailable Unavailable Ibanez, Marta LENS INSPECTOR Unavailable Unavailable Ibanez, Marta LENS INSPECTOR Unavailable Unavailable Ibanez, Marta LENS INSPECTOR Unavailable Unavailable Ibanez, Marta LENS INSPECTOR Unavailable Unavailable Ibanez, Marta LENS INSPECTOR Unavailable Unavailable Ibanez, Marta LENS INSPECTOR Unavailable Unavailable Ibanez, Marta LENS INSPECTOR Unavailable Unavailable Ibanez, Marta LENS INSPECTOR Unavailable Unavailable Ibanez, Marta LENS INSPECTOR Unavailable Unavailable Ibanez, Marta LENS INSPECTOR Unavailable Unavailable Ibanez, Marta LENS INSPECTOR Unavailable Unavailable Ibanez, Marta LENS INSPECTOR Unavailable Unavailable Ibanez, Marta LENS INSPECTOR Unavailable Unavailable Ibanez, Marta LENS INSPECTOR Unavailable Unavailable Ibanez, Marta LENS INSPECTOR Unavailable Unavailable Ibanez, Marta LENS INSPECTOR Unavailable Unavailable Ibanez, Marta LENS INSPECTOR Unavailable Unavailable Ibanez, Marta LENS INSPECTOR Unavailable Unavailable Ibanez, Marta LENS INSPECTOR Unavailable Unavailable Ibanez, Marta LENS INSPECTOR Unavailable Unavailable Ibanez, Marta LENS INSPECTOR Unavailable Unavailable Shirin Fernandez MD Unavailable Unavailable [...] G CHRISTOPHER PA Unavailable Unavailable DESJARLAIS, ADIA JAVA TECHNICAL MANAGER Unavailable Unavailable DESJARLAIS, ADIA JAVA TECHNICAL MANAGER Unavailable Unavailable DESJARLAIS, ADIA JAVA TECHNICAL MANAGER Unavailable Unavailable DESJARLAIS, ADIA JAVA TECHNICAL MANAGER Unavailable Unavailable DESJARLAIS, ADIA JAVA TECHNICAL MANAGER Unavailable Unavailable DESJARLAIS, ADIA JAVA TECHNICAL MANAGER Unavailable Unavailable DESJARLAIS, ADIA JAVA TECHNICAL MANAGER Unavailable Unavailable DESJARLAIS, ADIA JAVA TECHNICAL MANAGER Unavailable Unavailable DESJARLAIS, ADIA JAVA TECHNICAL MANAGER Unavailable Unavailable ROBLESAUGUSTINA OLIVAS MD Unavailable Unavailable MARGARET, HINDUISM MD Unavailable Unavailable MARGARET HINDUISM MD Unavailable Unavailable MARGARET HINDUISM MD Unavailable Unavailable MARGARET HINDUISM MD Unavailable Unavailable MARGARET HINDUISM MD Unavailable Unavailable MARGARET HINDUISM MD Unavailable Unavailable MARGARET HINDUISM MD Unavailable Unavailable BROWN, L LAZARA Unavailable Unavailable Junior Kelly Unavailable Junior Kelly Unavailable Ansley Eisenberg Unavailable Corzanae, Ansley Unavailable Corbine, Ansley Unavailable CORBINE, S ANSLEY Unavailable Unavailable CORBINE, S ANSLEY Unavailable Unavailable SYSTEM, NOT IN PROVIDER Unavailable Unavailable PANCHO, FATUMA JOSE LUIS PA-C Unavailable Unavailable PANCHO, FATUMA JOSE LUIS PA-C Unavailable Unavailable PACNHO, FATUMA JOSE LUIS PA-C Unavailable Unavailable PANCHO, [...] is protected by Article 27-F of the [facility] Public Health law. If you continue you may have access to information: Regarding HIV / AIDS; Provided by facilities licensed or operated by the [facility] Office of Mental Health; or Provided by the [facility] Office for People With Developmental Disabilities. If such information is present, then the following [facility] mandated warning applies: This information has [...] law may result in a fine or chcf sentence or both. A general authorization for the release of medical or other information is NOT sufficient authorization for further disc losure. Allergies and Adverse Reactions Type Description Substance Reaction Status Data Source(s ) Propensity to adverse reactions TRAZODONE AND NEFAZODONE TRA ZODONE AND NEFAZODONE [facility]spital Propensity to adverse reactions LISDEXAMFETAMINE LISDEXAMFETAMINE [facility] Propensity to adverse reactions HYDROCODONE Hydrocodone [facility] Propensity to adverse reactions ALLERGIES NOT ON FILE ALLERGIES NOT O N FILE [facility] Family History Family Member Name Family Member Gender Family Member Status Date o f Status Description Data Source(s) Unknown Unknown Problem 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 Outpatient Attender: ADIA VALENCIA NP 03/02/2021 09: 20:00 AM [facility] Outpatient Attender: ADIA VALENCIA NP 02/16/2021 11: 00:00 AM [facility] Outpatient Attender: ADIA VALENCIA NP 01/16/2021 08: 00:00 AM [facility] Outpatient Attender: ADIA VALENCIA NP 12/08/2020 03: 20:00 PM [facility] Outpatient Attender: ADIA VALENCIA NP 11/02/2020 10: 40:00 AM [facility] Outpatient Attender: Kelly Pacheco 11/01/2020 01:43:00 PM [facility] Inpatient Attender: AUGUSTINA Jernigan nder: Shirin Fernandez MDAdmitter: Shriin Fernandez MDReferrer: PROVIDER SYSTEM [id number] 09/30 12:00:00 AM EDT - 10/20/2020 10:40:00 AM EDT Major depressive disorder, recurrent, unspecified [facility] Major depressive disorder, recurrent, un specified Patient discharged. Outpatient Attender: Kelly Pacheco 09/26/2020 12:38:00 PM [facility] Outpatient Attender: ADIA VALENCIA NP 09/26/2020 09: 52:00 AM [facility] Outpatient [address] [facility] [facility] [address] 09/19/2020 12:00:00 AM EDT eCW1 ([facility]) Outpatient Attender: ADIA VALENCIA NP 09/12/2020 10: 16:00 AM [facility] Outpatient [address] [facility] [address] 09/01/2020 12:00:00 AM EDT eCW1 ([facility]) Outpatient Attender: ADIA VALENCIA JAVA TECHNICAL MANAGER 08/29/2020 10: 25:00 AM [facility] Outpatient Attender: ADIA VALENCIA JAVA TECHNICAL MANAGER 08/04/2020 04: 20:00 PM [facility] Outpatient Attender: ADIA VALENCIA NP 07/11/2020 04: 20:00 PM [facility] Outpatient Attender: ADIA VALENCIA JAVA TECHNICAL MANAGER 06/01/2020 04: 20:00 PM [facility] Outpatient Attender: ADIA VALENCIA JAVA TECHNICAL MANAGER 04/20/2020 04: 00:00 PM [facility] [place] [address] [facility] [facility] [address] 04/14/2020 12:00:00 AM EST eCW1 ([facility]) [place] [address] [facility] [facility] [address] 03/28/2020 12:00:00 AM EDT eCW1 ([facility]) [facility] 03/21/2020 12:00:00 AM EDT eCW1 ([facility]) [place] [address] [facility] [facility] [address] 03/15/2020 12:00:00 AM EDT eCW1 ([facility]) [place] [address] [facility] [facility] [address] 03/09/2020 12:00:00 AM EDT eCW1 ([facility]) [place] [address] [facility] [facility] [address] 03/09/2020 12:00:00 AM EDT eCW1 ([facility]) Outpatient Attender: ADIA VALENCIA JAVA TECHNICAL MANAGER 02/09/2020 02: 00:00 PM [facility] Outpatient Attender: ADIA VALENCIA JAVA TECHNICAL MANAGER 01/19/2020 11: 00:00 AM [facility] Outpatient Attender: ADIA VALENCIA NP 12/24/2019 03: 40:00 PM [facility] Outpatient Attender: ADIA VALENCIA NP 12/14/2019 04: 20:00 PM [facility] Outpatient Attender: JOSE LUIS Hernandez: ANDRESSA CARDOZA 12/06/2019 11:25:00 AM [facility] Outpatient Attender: ADIA VALENCIA JAVA TECHNICAL MANAGER 11/24/2019 02: 40:00 PM [facility] Outpatient Attender: ADIA VALENCIA NP 11/03/2019 04: 20:00 PM [facility] Outpatient Attender: ADIA VALENCIA JAVA TECHNICAL MANAGER 10/28/2019 04: 00:00 PM [facility] Outpatient Attender: ADIA VALENCIA JAVA TECHNICAL MANAGER 10/19/2019 09: 46:00 AM [facility] Outpatient Attender: ADIA VALENCIA JAVA TECHNICAL MANAGER 10/12/2019 11: 20:00 AM [facility] Outpatient Attender: ADIA VALENCIA JAVA TECHNICAL MANAGER 10/07/2019 03: 59:00 PM [facility] Outpatient Attender: ADIA VALENCIA JAVA TECHNICAL MANAGER 09/28/2019 04: 33:00 PM [facility] Outpatient Attender: ADIA VALENCIA JAVA TECHNICAL MANAGER 09/21/2019 10: 40:00 AM [facility] Outpatient Attender: ADIA VALENCIA JAVA TECHNICAL MANAGER 09/16/2019 11: 20:00 AM [facility] Outpatient Attender: ADIA VALENCIA JAVA TECHNICAL MANAGER 09/10/2019 08: 25:00 AM [facility] Outpatient Attender: JOSE LUIS MELGARCAttender: ANDRESSA CARDOZA 09/09/2019 03:30:00 PM [facility] Outpatient Attender: ADIA VALENCIA JAVA TECHNICAL MANAGER 08/26/2019 11: 00:00 AM [facility] Outpatient Attender: ADIA VALENCIA JAVA TECHNICAL MANAGER 08/05/2019 11: 00:00 AM [facility] Outpatient Attender: ADIA VALENCIA JAVA TECHNICAL MANAGER 07/13/2019 03: 37:00 PM [facility] Outpatient Attender: Ansley Viveros cony: ANSLEY Lamender: ADIA VALENCIA NP 07/08/2019 08:26:00 AM [facility] Outpatient Attender: ADIA VALENCIA NP 07/01/2019 04: 15:00 PM [facility] Outpatient Attender: ADIA VALENCIA JAVA TECHNICAL MANAGER 06/22/2019 08: 52:00 AM [facility] Outpatient Attender: ADIA VALENCIA NP 05/27/2019 10: 40:00 AM [facility] Outpatient Attender: LAZARA ORTEGA 05/21/2019 08:15:00 AM [facility] Outpatient Attender: LAZARA ORTEGA 05/20/2019 04:58:00 PM [facility] Outpatient Attender: ADIA VALENCIA NP 05/20/2019 09: 20:00 AM [facility] Outpatient Attender: ADIA VALENCIA NP 04/01/2019 04: 30:00 PM [facility] Outpatient Attender: ADIA VALENCIA JAVA TECHNICAL MANAGER 02/26/2019 12: 56:00 PM [facility] Outpatient Attender: Chris Suazo MD 10/14/2016 06:44:00 PM [facility] Emergency Attender: IVÁN MEIER II 07/30 03:31:00 PM [facility] 07/30/2014 03:57:00 PM [facility] Outpatient Attender: Marta NÚÑEZ EMERGENCY ROOM-[facility] 06/16/2012 08:58:00 AM EST - 06/16/2012 08:58:00 AM EST [facility] Immunizations Vaccine Date Status Description Data Source(s) COVID-19 VACC,MRNA(MODERNA)/PF 10/23/2020 12:00:00 AM EDT completed [facility] COVID-19 VACCINE Moderna 10/23/2020 12:00:00 AM EDT completed [facility] Vaccine Series Complete: YESThis Data wa s Submitted to [facility] Via [employer]. COVID-19 VACCINE Moderna 09/14/2020 12:00:00 AM EDT completed [facility] Vaccine Series Complete: NOThis Data was Submitted to [facility] Via [employer]. COVID-19 VACC,MRNA(MODERNA)/PF 09/14/2020 12:00:00 AM EDT completed [...] FOR 10 DAYS SOLD: 021 [facility] 300 mg 02/16/2021 12:00:00 AM [...] ONCE A WEEK SOLD: 11/04/2020 [facility] [place] Carbonate 450 MG Extended Releas e Oral Tablet [place] Carbonate ER 450 MG Oral Tablet Extended Release (ESKALITH) [place] Carbonate ER 450 MG Oral Tablet Extended Release (ESKALITH) 10/20/2020 12:00:00 AM EDT 450 mg Oral active Take 1 tablet by mouth Two Times Daily [facility] olanzapine 10 MG Oral Tablet OLANZapine 10 MG Oral Tab let (ZYPREXA) OLANZapine 10 MG Oral Tablet (ZYPREXA) 10/20/2020 12:00:00 AM EDT 10 mg Oral active Take 1 tablet by mouth nightly as needed [facility] sennosides, DETENTION 8.6 MG Oral Tablet senna tablet 2 tablet sen na tablet 2 tablet 10/18/2020 10:00:00 PM EDT 2 {tbl} Oral active 2 tablet, Oral, Nightly, First dose on Fri10/18/20 at 2200, For 30 days [facility] Medication administered onsite Docusate Sodium 100 MG Oral Capsule docusate sodium (C OLACE) capsule 100 mg docusate sodium (COLACE) capsule 100 mg 10/18/2020 01:15:00 PM EDT 100 mg Oral active 100 mg, Oral, 2 Times Daily, First dose on Fri10/18/20 at 1315, For 30 days [facility] Medication administered onsite POLYETHYLENE GLYCOL 3350 [...] due to potential increased risk for aspiration.
[facility] Medication administered onsite Hydroxyzine Pamoate 25 MG Oral Capsule hydrOXYzine ( STARIL) capsule 25 mg hydrOXYzine (VISTARIL) capsule 25 mg 10/18/2020 10:03:55 AM EDT 25 mg Oral active 25 mg, Oral, June ry 6 hours PRN, Anxiety, Starting on Fri10/18/20 at 1003, For 534 hours [facility] Medication administered onsite lithium capsule 450 mg 10/17/2020 09:00:00 PM EDT 450 mg Oral active 450 mg, Oral, 2 Times Daily, First dose (after last modification) on Fri10/17/20 at 2100, For 46 doses [facility] Medication administered onsite [place] Carbonate 150 MG Oral Capsule lithium capsule 150 mg lithium capsule 150 mg 10/17/2020 11:00:00 AM EDT 150 mg Oral completed 150 mg, Oral, Once, On Fri10/17/20 at 1100, For 1 dose [facility] Medication administered onsite Nicotine 2 MG Oral Lozenge nicotine (NICORETTE) lozeng e 2 mg nicotine (NICORETTE) lozenge 2 mg 10/16/2020 07:02:01 PM EDT 2 mg Mouth/Th roat active 2 mg, Mouth/Throat, Every 2 hours PRN, Smoking cessation, Starting on Fri10/16/20 at 1902, For 30 days
Should not be chewed or swallowed; allow to dissolve slowly (~20-30 minutes)
[facility] Medication administered onsite Magnesium Hydroxide 80 [...] creatinine > 2 notify provider before administering.
[facility] Medication administered onsite lamoTRIgine (LaMICtal) tablet 150 mg 10/13/2020 09:00:00 PM EDT 150 mg Oral active 150 mg, Oral, 2 Times Daily, First dose (after last modification) on Fri10/13/20 at 2100, For 54 doses [facility] Medication administered onsite [place] Carbonate 300 MG Oral Capsule lithium carbonat e capsule 300 mg lithium carbonate capsule 300 mg 10/13/2020 11:15:00 AM EDT 300 mg Oral completed 300 mg, Oral, Once, On Fri10/13/20 at 11 15, For 1 dose [facility] Medication administered onsite lamotrigine 100 MG Oral Tablet lamoTRIgine (LaMICtal) tablet 100 mg lamoTRIgine (LaMICtal) tablet 100 mg 10/13/2020 11:15:00 AM EDT 100 mg Oral active 100 mg, Oral, Once, On Fri10/13/20 at 1115, For 1 dose [facility] Medication administered onsite Hydroxyzine Hydrochloride 10 MG Oral Tablet hydrOXYzin e (ATARAX) tablet 10 mg hydrOXYzine (ATARAX) tablet 10 mg 10/13/2020 11:07:44 AM EDT 10 mg Oral aborted 10 mg, Oral, Every 6 hours PRN, Anxiety, Starting on Fri10/13/20 at 1107, For 653 hours [facility] Medication administered onsite [place] Carbonate 300 MG Oral Capsule lithium carbonat e capsule 300 mg lithium carbonate capsule 300 mg 10/12/2020 09:00:00 PM EDT 300 mg Oral aborted 300 mg, Oral, 2 Times Daily, First dose (after last modification) on Fri10/12/20 at 2100, For 56 doses [facility] Medication administered onsite lamotrigine 25 MG Oral Tablet lamoTRIgine (LaMICtal) t ablet 50 mg lamoTRIgine (LaMICtal) tablet 50 mg 10/11/2020 09:00:00 PM EDT 50 mg Oral aborted 50 mg, Oral, 2 Times Daily, First dose (after last modification) on Fri10/11/20 at 2100, For 58 doses [facility] Medication administered onsite Ibuprofen 600 MG Oral Tablet ibuprofen (MOTRIN) tablet 600 mg ibuprofen (MOTRIN) tablet 600 mg 10/11/2020 10:34:55 AM EDT 600 mg Oral acti ve 600 mg, Oral, Every 6 hours PRN, Moderate Pain (Pain Scale Score 4-6), Starting on Fri10/11/20 at 1034, For 701 hours
Take with food.
[facility] Medication administered onsite Ergocalciferol 58582 UNT Oral Capsule vi tamin D (ERGOCALCIFEROL) capsule 50,000 Units vitamin D (ERGOCALCIFEROL) capsule 50,000 Units 2020 09:00:00 AM EDT 07136 U Oral active 50,000 U nits, Oral, Weekly, First dose on Fri10/11/20 at 0900, For 30 days [facility] Medication administered onsite pantoprazole 40 MG Delayed Release Oral Tablet pantoprazole (PROTONIX) EC tablet 40 mg pantoprazole (PROTONIX) EC tablet 40 mg 10/11/2020 07:30:00 AM E DT 40 mg Oral active 40 mg, Ora l, Before Breakfast, First dose on Fri10/11/20 at 0730, For 30 days [facility] Medication administered onsite olanzapine 10 MG Oral Tablet OLANZapine (ZYPREXA) tabl et 10 mg OLANZapine (ZYPREXA) tablet 10 mg 10/10/2020 10:00:00 PM EDT 10 mg Oral active 10 mg, Oral, Nightly, First dose on Fri10/10/20 at 2200, For 30 days [facility] Medication administered onsite montelukast 10 MG Oral Tablet montelukast (SINGULAIR) tablet 10 mg montelukast (SINGULAIR) tablet 10 mg 10/10/2020 10:00:00 PM EDT 10 mg Oral active 10 mg, Oral, Nightly, First dose on Fri10/10/20 at 2200, For 30 days [facility] Medication administered onsite [place] Carbonate 150 MG Oral Capsule lithium capsule 150 mg lithium capsule 150 mg 10/10/2020 09:00:00 PM EDT 150 mg Oral aborted 150 mg, Oral, 2 Times Daily, First dose on Fri10/10/20 at 2100, For 30 days [facility] Medication administered onsite Tranylcypromine 10 MG Oral Tablet tranylcypromine (PAR PATRICIA) tablet 10 mg tranylcypromine (PARNATE) tablet 10 mg 10/10/2020 09:00:00 PM EDT 1 0 mg Oral active 10 mg, Oral, 2 Times Daily, First dose on Fri10/10/20 at 2100, For 30 days [facility] Medication administered onsite lamoTRIgine (LaMICtal) tablet 150 mg 10/10/2020 09:00:00 PM EDT 150 mg Oral aborted 150 mg, Oral, 2 Times Daily, First dose on Fri10/10/20 at 2100, For 30 days [facility] Medication administered onsite olanzapine 10 MG Disintegrating Oral Tab let OLANZapine zydis (ZYPREXA) disintegrating tablet 10 mg OLANZapine zydis (ZYPREXA) disintegratin g tablet 10 mg 10/10/2020 07:19:07 PM EDT 10 mg Oral active 10 mg, Oral, Every 8 hours PRN, agitation, ammy, Starting on Fri10/10/20 at 1919, For 30 days [facility] Medication administered onsite fluticasone (FLONASE) 50 MCG/ACT nasal spray 1 spray [id number] 10/10/2020 05:01:29 PM EDT 1 {spray} Nasal active 1 spray, Nasal, Daily PRN, allergies, Starting on Fri10/10/20 at 1701, For 30 days
Shake well before use
[facility] Medication administered onsite 24 HR Nicotine 0.875 MG/HR Transdermal P atch nicotine (NICODERM CQ) 21 MG/24HR 1 patch nicotine (NICODERM CQ) 21 MG/24HR 1 patch 10/10/2020 05:00:00 PM EDT 1 {patch} Transdermal aborted 1 patch, Transdermal, Administer over 24 Hours, Daily Standard, First dose on Fri10/10/20 at 1700, For 30 days [facility] Medication administered onsite Hydroxyzine Hydrochloride 50 MG Oral Tablet hydrOXYzin e (ATARAX) tablet 50 mg hydrOXYzine (ATARAX) tablet 50 mg 10/10/2020 04:16:10 PM EDT 50 mg Oral aborted 50 mg, Oral, Every 6 hours PRN, Anxiety, Starting on Fri10/10/20 at 1616, For 30 days [facility] Medication administered onsite Acetaminophen 325 MG [...] mg from all sources in 24 hours.
[facility] Medication administered onsite olanzapine 10 MG [...] DAY FOR ACID REFLUX SOLD: 10/07/2020 [facility] Omeprazole 20 MG Delayed Release Oral Ca psule Omeprazole 20 MG Oral Capsule Delayed Release (PriLOSEC) Omeprazole 20 MG Oral Capsule Delayed Re lease (PriLOSEC) 10/06/2020 12:00:00 AM EDT 20 mg Oral active Take 20 mg by mouth daily [facility] montelukast 10 MG Oral Tablet MONTELUKAST [...] aborted Take 10 mg by mouth nightly [facility] 24 HR Nicotine 0.875 MG/HR Transdermal P atch Nicotine 21 MG/24HR Transdermal Patch 24 Hour (NICODERM CQ) Nicotine 21 MG/24HR Transdermal Patch 24 Hour (NICODERM CQ) 10/06/2020 12:00:00 AM EDT 1 {patch} Transdermal active Place 1 patch onto the skin daily [facility] montelukast 10 MG Oral Tablet Montelukast Sodium 10 MG Oral Tablet (SINGULAIR) Montelukast Sodium 10 MG Oral Tablet (SINGULAIR) 10/06/2020 12:00:00 AM EDT 10 mg Oral active Take 10 mg by mouth [facility] lamotrigine 150 MG Oral Tablet lamoTRIgine 150 MG Oral Tablet (LAMICTAL) lamoTRIgine 150 MG Oral Tablet (LAMICTAL) 09/26/2020 12:00:00 AM EDT 150 mg Oral active Take 150 mg by mouth Two Times Daily [facility] 150 mg 09/26/2020 12:00:00 AM EDT tablet 60 TAKE ONE TABLET BY MOUTH TWICE A DAY TAKE ONE TABLET BY MOUTH TWICE A DAY SOLD: 11/23/2020 [facility] Ergocalciferol 78690 UNT Oral Capsule Vi tamin D (Ergocalciferol) 1.25 MG (00535 UT) Oral Capsule (ERGOCALCIFEROL) Vitamin D (Ergocalciferol) 1.25 MG (5000 0 UT) Oral Capsule (ERGOCALCIFEROL) 09/26/2020 12:00:00 AM EDT 49679 U Ora l active Take 50,000 Units by mouth once a week [facility] Tranylcypromine 10 MG Oral Tablet Tranyl cypromine Sulfate 10 MG Oral Tablet (PARNATE) Tranylcypromine Sulfate 10 MG Oral Tablet (PARNATE) 12:00:00 AM EDT 10 mg Oral active Take 10 mg by mouth Two Times Daily [facility] Hydroxyzine Hydrochloride 50 MG Oral Tab let hydrOXYzine HCl 50 MG Oral Tablet (ATARAX) hydrOXYzine HCl 50 MG Oral Tablet (ATARAX) 09/26/2020 12:00: 00 AM EDT 50 mg Oral active Take 50 mg by mo uth daily as needed [facility] 50 mg 09/14/2020 12:00:00 AM EDT tablet 30 TAKE ONE TABLET BY MOUTH TWICE A DAY NEEDED TAKE ONE TABLET BY MOUTH TWICE A DAY NEEDED SOLD: 09/16/2020 [facility] [place] Carbonate 150 MG Oral Capsule [place] Carbonate 150 MG Oral Capsule 09/14/2020 12:00:00 AM EDT 150 mg Oral aborted Take 150 mg by mouth Two Times Daily [facility] 150 mg 09/14/2020 12:00:00 AM EDT capsule 60 TAKE ONE CAPSULE BY MOUTH TWICE A DAY TAKE ONE CAPSULE BY MOUTH TWICE A DAY SOLD: 09/16/2020 [facility] 300 mg 09/11/2020 12:00:00 AM EDT capsule 14 TAKE ONE CAPSULE BY MOUTH TWICE A DAY FOR MOOD TAKE ONE CAPSULE BY MOUTH TWICE A DAY FOR MOOD SOLD: [facility] Cholecalciferol 42957 UNT Oral Capsule Vitamin D3 1.25 MG (40233 UT) Vitamin D3 1.25 MG (17697 UT) 09/01/2020 12:00:00 AM EDT 1.0 {capsule} active Vitamin D3 1.25 MG (03861 UT) eCW1 ([facility]) montelukast 10 MG Oral Tablet MONTELUKAST SODIUM 09/01/2020 12:0 0:00 AM EDT tablet 30 TAKE ONE TABLET BY MOUTH EVERY E VENING TAKE ONE TABLET BY MOUTH EVERY EVENING SOLD: 09/12/2020 [facility] 20 mg 09/01/2020 12:00:00 AM EDT capsule,delayed release (DR/EC) 30 TAKE ONE CAPSULE BY MOUTH EVERY DAY TAKE ONE CAPSULE BY MOUTH EVERY DAY SOLD: 09/12/2020 [facility] 50 mcg/actuation 09/01/2020 12:00:00 AM EDT spray,suspension 16 USE ONE SPRAY IN EACH NOSTRIL ONCE A DAY USE ONE SPRAY IN EACH NOSTRIL ONCE A DAY SOLD: 09/12/2020 [employer] Cholecalciferol 72085 UNT Oral Capsule Vitamin D3 1.25 MG (25727 UT) Vitamin D3 1.25 MG (14566 UT) 09/01/2020 12:00:00 AM EDT 1.0 {capsule} active Vitamin D3 1.25 MG (70869 UT) [facility] ([facility]) Fluticasone Propionate 50 MCG/ACT Nasal Suspension (FLONASE) 6600-3222-29 09/01/2020 12:00:00 AM EDT 1 {spray} Nasal active 1 spray by Nasal route daily as needed [facility] 20 mg 09/01/2020 12:00:00 AM EDT capsule,delayed release (DR/EC) 30 TAKE ONE CAPSULE BY MOUTH EVERY DAY TAKE ONE CAPSULE BY MOUTH EVERY DAY SOLD: 11/23/2020 [facility] Cholecalciferol 63035 UNT Oral Capsule Vitamin D3 1.25 MG (97779 UT) Vitamin D3 1.25 MG (36285 UT) 09/01/2020 12:00:00 AM EDT 1.0 {capsule} active Vitamin D3 1.25 MG (90538 UT) eCW1 ([facility]) 1,250 mcg (50,000 unit) 08/30/2020 12:00:00 AM EDT capsule 4 TAKE ONE CAPSULE BY MOUTH ONCE A WEEK TAKE ONE CAPSULE BY MOUTH ONCE A WEEK SOLD: 09/12/2020 [facility] 150 mg 08/30/2020 12:00:00 AM EDT tablet 30 TAKE ONE TABLET BY MOUTH EVERY DAY TAKE ONE TABLET BY MOUTH EVERY DAY SOLD: 09/12/2020 [facility] 10 mg 08/25/2020 12:00:00 AM EDT [...] TIMES A DAY SOLD: 02/13/2020 [facility] 20 mg 01/07/2020 12:00:00 AM [...] A DAY NEEDED SOLD: 01/18/2020 [facility] Insurance Providers Payer name Policy type / Coverage type Policy ID Covered green party ID Covered green party's relationship to blake Policy Blake Plan Information MEDICARE A [id number] Self [id number] MEDICARE A [id number] Self [id number] [employer] [id number] S [id number] [place] [id number] S [id number] [place] [id number] S [id number] [facility] MEDICARE DIVISION [id number] S [id number] MEDICARE [id number] SP [id number] MEDICAID [id number] S [id number] MEDICAID M [id number] Self [id number] [place] [id number] S [id number] [facility] MEDICAID [id number] S [id number] MEDICAID [id number] SP [id number] MEDICAID PROF FEES [id number] MEDICAID [id number] S [id number] MCRB [id number] S [id number] P46 MEDICARE [id number] S [id number] P46 [place] [id number] [place] [id number] ANSI-Medicaid [id number] ANSI-Not a Secondary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 QsEXHrsr6TKBLoSFNlGbP4IoArTUJhCZGyCYjkCBDuOCA9ZtY4CZGoLUVgBV9YPbChCSMeOwz7KRPrVC VjIJChka7STTZlCDPzIKGyMFOcJYRjSRVcZOxwJGXtMLOpOEUaUURgPAJaKS0PTvTcTFJjCtL0LHZjZK WtOHWebr0OWUEkCEOrCOLdJPVvIFJeWPOqZPqgMXDl MLU9SFUyGSOoWUAxKZ7IOwBmBNEnKky0QLSkREKaLAVwix0DNXHfETQkVRFeRhGhXSQvWJUqBFntUPVq HMN3YWSlCKSoZEKgEX7QLiIkWAKzLyu9JFYwCZDiAKLtww2CPTKdVAI8IGp4UNEqTQMvBNPdHKcqBMKa BIVlMSR0CNInCDQsXX9PAnDgRIDgLWEkXdJzZKUiXO Gehb5UZECyUKT5RgP7VDTvWUVrNXXbIDbrSWGoOESeMDw2YZYtADGlAP1NOaIjDJIfVEE2XZWcHZAySZ Dyvs6KMSBaGSL1QtE1LNReZUNrEXRpRAvcZORaQMQrWZZmTZJhMFMkUW7DWkJeTXKiIYKdGkEpDBCmKG Crfr3ALSZnCVY0ZXd1NNBtLZLnEGAlZSvbEGCwLVW8 JOl0XGNoPTGiNA1ANxPdWEKzJGPsLypsZXLgQZCxhu2TTZLmEBP8Err4XcEiYANsUQPlYHqeCGFvSJN9 UTohNLUcKZHcBU8KRjNeXRYwJPgsKUUqBVHcFXFzju1XRXFoDTW1GkTlCMIcACHiBKMqHOsaMLFePBT9 Whr0GZCgANIdMH6CYoGeOBJqEvO7EhSxUHUmTWEmlx 9QWYFxWKI4Xlb2OLJuJWUcXPGsWYmcLKWaXSZiYSPuUNWuPIOcUY9WUhYqIEQwPnAiLIMsKNDgJRIswb 9PDUSoFBK0JqS8BNCrTACuFEVbIKahWHBwJNP6CwqnCGOhXFCeBB6ATqHeBVCjMnU0JMItATDnFHFcsp 3CDWKkBXQ3IPr0UoReOANiVCPmLAugDRTsCZH7LPs3 JTAsMDEaXB5TGpZgUMJjWpMpBlwuTNRzFONxqb5IHRTwWGD4MMP7TOUeXETsXGXnSRizYCMaEPI3RoDo SCMgLQRiQI8SNbGbPRJfAhP4KDSjFPEnESCmuq3XRSVtHZO6ViQ1ACLaOSXuMVEbHBgqAERbQVL1MhBq RXFkEUMoSA9RNmIpTRQhZey4OJTiCETcHLEwlx2ULT BnRPR9PQz4ZHYlWZFlIMRfBJzpUGOiWSF4PNCsKEJpXHBmIZ6NZmLjGFnlPYFSZdo9LYlpT6v2YCR8ER 4GM0Fny7SqHxJhNXGCEIecBI8ppiPqJGPcWd9FP4ePMbspFMwvZOY8RoC1BfV3NrA9DNV0WHQ9VTM2Zi FqELGhVP8gJZNsLEU9OoatXbI6ILPdNVTiVnZ4KySt Ckg5XEOtCYZlHqAtEV1NXq7RUjU3XYW0rFCjXc7XWuyoSzATRfYuDY4ZZLl= ID Date Data Source [id number] 10/20/2020 07:46:52 AM EDT [facility] Value Range Interpretation Code Description Data Verna rce(s) Supporting Document(s) [place] [Moles/volume] in Serum or Plasma 0.72 mmol/L 0.60-1.20 [facility] ID Date Data Source [id number] 10/17/2020 08:26:03 AM EDT [facility] Value Range Interpretation Code Description Data Verna rce(s) Supporting Document(s) [place] [Moles/volume] in Serum or Plasma 0.50 mmol/L 0.60-1.20 L [facility] ID Date Data Source [id number] 10/17/2020 08:18:27 PM EDT [facility] Value Range Interpretation Code Description Data Verna rce(s) Supporting Document(s) Calcidiol [Mass/volume] in Serum or Plasma 36 ng/mL >30 [facility] ID Date Data Source [id number] 10/17/2020 08:33:04 AM EDT [facility] Value Range Interpretation Code Description Data Verna rce(s) Supporting Document(s) Thyrotropin [Units/volume] in Serum or Plasma 1.710 u[IU]/mL 0.270-4. 200 [facility] ID Date Data Source [id number] 10/13/2020 06:35:11 AM [facility] Name Value Range Interpretation Code Description Data Verna rce(s) Supporting Document(s) Leukocytes [#/volume] in Blood by Automated count 8.5 10*3/uL 4-10 [facility] Erythrocytes [#/volume] in Blood by Automated count 3.99 10*6/uL 4.1- 5.3 L [facility] Hemoglobin [Mass/volume] in Blood 12.5 g/dL 11.5-15.5 [facility] Hematocrit [Volume Fraction] of Blood by Automated count 38.6 % 3 6-45 [facility] Erythrocyte mean corpuscular volume [Entitic volume] by Auto mated count 96.8 fL 80-96 H [facility] Erythrocyte mean corpuscular hemoglobin [Entitic mass] by Automated count 31.2 pg 27-33 [facility] Erythrocyte mean corpuscular hemoglobin concentration [Mass/volume] by Autom[facility] 32.3 g/[facility].0[facility] width [Ratio] by Automated count 13.5 % 11.5-14.5 [facility] Platelets [#/volume] in Blood by Automated count 350 10*3/uL 150-400 [facility] ID Date Data Source [id number] 10/13/2020 07:12:18 AM [facility] Name Value Range Interpretation Code Description Data Verna rce(s) Supporting Document(s) Cholesterol [Mass/volume] in Serum or Plasma 151 mg/dL <200 [facility] Triglyceride [Mass/volume] in Serum or Plasma 50 mg/dL <150 [facility] Cholesterol in HDL [Mass/volume] in Serum or Plasma 60 mg/dL >50 [facility] Cholesterol in LDL [Mass/volume] in Serum or Plasma by calcu lation 82 mg/dL <100 [facility] Cholesterol in VLDL [Mass/volume] in Serum or Plasma by calc ulation 10 mg/dl 16-42 L [facility] Cholesterol non HDL [Mass/volume] in Serum or Plasma 91 mg/dL <130 [facility] ID Date Data Source [id number] 10/13/2020 12:33:09 PM EDT [facility] Name Value Range Interpretation Code Description Data Verna rce(s) Supporting Document(s) Choriogonadotropin.beta subunit [Moles/volume] in Serum or Plasma <5 [facility] ID Date Data Source [id number] 10/13/2020 07:05:47 AM EDT [facility] Name Value Range Interpretation Code Description Data Verna rce(s) Supporting Document(s) Hemoglobin A1c/Hemoglobin.total in Blood by HPLC 4.9 % 4.0-6.0 [facility] Glucose mean value [Mass/volume] in Blood Estimated fr om glycated hemoglobin 94 mg/dL <126 [facility] ID Date Data Source [id number] 10/13/2020 01:47:15 PM EDT [facility] Service Cmnt XXX-Imp : NoneMicroorganism XXX Cult : Hypoid Gear Tester Mediated Amplification(TMA) is NEGATIVE for Neisseria gonorrhoeae AND NEGATIVE for Chlamydia trachomatis. Name Value Range Interpretation Code Description Data Verna rce(s) Supporting Document(s) ID Date Data Source [id number] 10/11/2020 10:44:10 PM EDT [facility] Name Value Range Interpretation Code Description Data Verna rce(s) Supporting Document(s) History and Physical [facility] ILXJQe7aBgSLIvZn00/KFRqfTAImq3AeKIntNTj8HTgeDWAnK1YjNIT2pW1kNNV5RHyLQcVqGzAjWEDp m [file] ICAgICAgICAgICAgICAgICAgICAgICAgICAgICAgICAgICAgICAgICAgICAgICAgICAgICAgICAgICAg ICAgICAgICAgICAgICAgICAgICAgICAgICAgICAgDQ ogICAgICAgICAgICAgICAgICAgICAgICAgICAgICAgICAgICAgICAgICAgICAgICAgICAgICAgICAgIC AgICAgICAgICAgICAgICAgICAgICAgICAgICAgICAgICAgICAgICAgDQogICAgICAgICAgICAgICAgIC AgICAgICAgICAgICAgICAgICAgICAgICAgICAgICAg ICAgICAgICAgICAgICAgICAgICAgICAgICAgICAgICAgICAgICAgICAgICAgICAgICAgDQogICAgICAg ICAgICAgICAgICAgICAgICAgICAgICAgICAgICAgICAgICAgICAgICAgICAgICAgICAgICAgICAgICAg ICAgICAgICAgICAgICAgICAgICAgICAgICAgICAgIC AgDQogICAgICAgICAgICAgICAgICAgICAgICAgICAgICAgICAgICAgICAgICAgICAgICAgICAgICAgIC AgICAgICAgICAgICAgICAgICAgICAgICAgICAgICAgICAgICAgICAgICAgDQogICAgICAgICAgICAgIC AgICAgICAgICAgICAgICAgICAgICAgICAgICAgICAg ICAgICAgICAgICAgICAgICAgICAgICAgICAgICAgICAgICAgICAgICAgICAgICAgICAgICAgDQogICAg ICAgICAgICAgICAgICAgICAgICAgICAgICAgICAgICAgICAgICAgICAgICAgICAgICAgICAgICAgICAg ICAgICAgICAgICAgICAgICAgICAgICAgICAgICAgIC AgICAgDQogICAgICAgICAgICAgICAgICAgICAgICAgICAgICAgICAgICAgICAgICAgICAgICAgICAgIC AgICAgICAgICAgICAgICAgICAgICAgICAgICAgICAgICAgICAgICAgICAgICAgDQogICAgICAgICAgIC AgICAgICAgICAgICAgICAgICAgICAgICAgICAgICAg ICAgICAgICAgICAgICAgICAgICAgICAgICAgICAgICAgICAgICAgICAgICAgICAgICAgICAgICAgDQog ICAgICAgICAgICAgICAgICAgICAgICAgICAgICAgICAgICAgICAgICAgICAgICAgICAgICAgICAgICAg ICAgICAgICAgICAgICAgICAgICAgICAgICAgICAgIC HqFYVnSBJrMHc0N9meNENsKJDlSL1dOWx5Wc9+HWpOKfKsMCZ7fuRcgW0XFO4ls5CrODmsVRJgc4WkTD w7VQ3VGMTyOCzsJR8QIIehog5OGZDvGGLrzUWPn5lvLlYyBUD7KDIfBxrrNW0LXITmG4qrweOtQKQvXT QNRMkdNJCKHGlrWFXIQPVxFFXuPmOaNeYvGHWmRM1R HLGnR214bbMmWX5BLq3AIkBzZM1cre7GZjMnTYMwNdkFApe2QMbfSQ4WzDKowWAjJkCfJXYXEyTmJ1pm i4PpVfvkQXRMZErmCI5Gu5SnoESpYXp+Md1BBC5rq0SuCTzsJpGcQB8cgq3CPEbDKvXhK5JwaKheGOrc FOOygXKQESH7lJZ0PUqeF7OobqCbKQGJOHDsqVR0Vk HfHiIdNxUqXDS2TiXvPB5nZEsoDX8RWEI9KYwcSKTxHDMhK3oQSwJxDSCnJbRnrRnrTY1YZpCtU4Gilk VudCAzNiAwIFINCj4+WTijzaUrIvcRDiV9TBNju3AtMGm7BM4LUGEwVTacAU8KXDGzhQ8zUDhdYE8ZMt QjDJTkOYTWAhQjF71juUUaVWb3V0KzXbVuWJOcZjgl ZXMgPDwvTmFtZXMgWyBdDQogID4+ID4+ZTvmRB1NNKyootMhUBYmEl4IRXFvKHIxVO0uJSEzZIEhR0V5 cGxtUZUKUvJhX9wxsbkyJU2nBWNoS377iCeeimJmQDC1PXNzQg8DQIIoRAK8YZLctROwVxEnTPSHOAke CP1ViCQmUSS3zI8iZTqbNVDnAVCdU2wMOxCojPxyAH 51bGwgbnVsbCBdDQo+Vn8PQB7zg5XiFEo7qbFzALyhMTW2WRyoSYCoGOFlYUXiLSV7CRX0FJATJbXfTL JbYXKkESjvVEZmUKNvbk5WTHOjQGYdPLD0JSCpFPHhLIDyOScfHNMvDHWvVRM3CUPvTHNfDB4RJlDoFU TmMVPkSZlmCNRaRXGvty7BGXOaUYGeXuhaXxHrWVNz MZUaFCzcQEApNECmHIM1EQPiCPUzQA5FMzAuPMXxINL6EyWxQXTtRFFqkm1LWARbBCPyNTIdNYHzMGYl KFIeZGizSNJcVHS1Orx5VYGrWTKyAD0KVxZaQUHmRDr2JUHnIJKhECYbtm5YAOAwILEmHKr1KJEbWBGm POVcCZunCFPwTFVpCwGuKTUaCGWdDT8ATbBjVYPjPJ P2UfjxEYNkYFCryx3NGHYiHLRdCcD0ZnMwTWJsYDBaVSmdRNLrKYQsVFNuVHFvUBDoXJ4CAbJiSRFvZF FiRSOrTKUhWGChvz6WVMNyDRIvHyQyLiYsZBYlYHXuCQaaWHOvRMU4GApzGVIlBFZnDW7HMvPqLXZlQI F9GFZqPHAcKMKqnf7KYMWuFEZiUOl6AhGeVGRbRWLb ZFoqGSVbPQG6GEKuLUWyMJRxIW0JDtWdVYKmOQHrSzjeGCUmWZOxlt6LPUKfCLUyXzUmDsCvUNKpNEVc DAeyHJKwYHS5OVc6YYLgBJZnZB6DObTvCRCwYkd6LDWmLCTlTXEmgj5DCJYyKNGbKBRhSHLrKWHhCIPh MOshSDJlLQC8CoZvDHNgOWVvZE1LLzCsUSIkXmy3WZ byMZDaDDLsqk1HZCQnQIVkUKR1CnBrNPStFLNqUBjeCAWjNAP0UvQcOYBxKMQfMR6DKzUmEHHzSyf3DK vwFSGiKGIjeo3HYUGeXGIeGVv1JxJxAHOhTTIqEYqfKSRzMXOmZDZ0KLIeIERqSD7ERbKyBZTrKnScTl kuEYWoJXWsqr2ZQNJbATRrPQB5NzNpJDVaCCPiGLhk MSVcVWBpFSFlMGZbQWKlNH9SNcVoTQLrRyVyRlWgTMTpTTHhli1QCIAyOYKuHzS8BuRfZHHsITDbVIw8 egShgCXzAHo9SP9NE3PxodMaHulZHa7Sf479WVG9LEKlAh2IS0iwUh9pMWMjAZRHYn5BMIy8MwWvAerr SZa2S9Y0BJU1VJZpSZd5UpZlHTZ5KNjlAaU+IDxiYj NkJYGwNsLyNjn7RakxDkZ5HaYaUjN7PoS0QHSyYW3pPXBAXj9+SLunjLCbuThgLFENBdCzOVY2SAemTK VPRg0K ID Date Data Source [id number] 10/11/2020 01:38:32 PM EDT [facility] Name Value Range Interpretation Code Description Data [facility](s) Supporting Document(s) History and Physical [facility] CSLECb6lPxQENdDg06/JOKjfYSYvz1TyJVpeIPc3NPlsNPDpJ6XeADJ1rQ8kYQS9CRkEUnSbGxUpNTId lbm [file] AgICAgICAgICAgICAgICAgICAgICAgICAgICAgICAg SSDtACMwZFVmZZPoBQEjUNVoYGBkMGCnKSAeERTbKLEwAQQlLTShEKThQFVkUY5EINXsBPWxBTMiQFMh ICAgICAgICAgICAgICAgICAgICAgICAgICAgICAgICAgICAgICAgICAgICAgICAgICAgICAgICAgICAg MXCdYZNnHXSjWZQoPVQgMCUuHBDqWKWhGEAqXG5TAH AgICAgICAgICAgICAgICAgICAgICAgICAgICAgICAgICAgICAgICAgICAgICAgICAgICAgICAgICAgIC FhPEApLISeYCOzXKWbITOuARNzEIRdZXTcUXAvGTSdYLIjVFCfDH4ZPTHmRVCfLKSqXASzHJKoGRBnAI AgICAgICAgICAgICAgICAgICAgICAgICAgICAgICAg JCBxSRTvXRGbOYXwOAWfWYPsZDUfZKBxIFYhDOFxBIKnMJPdPWEbFEAiXFOgLEWgMI0KYACdPRJwTBHd ICAgICAgICAgICAgICAgICAgICAgICAgICAgICAgICAgICAgICAgICAgICAgICAgICAgICAgICAgICAg ICAgICAgICAgICAgICAgICAgICAgICAgICAgICAgIA 0KICAgICAgICAgICAgICAgICAgICAgICAgICAgICAgICAgICAgICAgICAgICAgICAgICAgICAgICAgIC NuHQRzCMXjBLBlUZZqPXVdAUOmJJHwHDMmYTVyFIUxLZStTSGaPBIzRN6JFKUjUQIbDEUsWPVuURGyLQ AgICAgICAgICAgICAgICAgICAgICAgICAgICAgICAg EYHmWVRhLBCbWCPxICZzDDViXEYbFZKoWDPyDFAdNJDbZITfSBPxGMTvQGJzGYRiSJXsLP4PUMZoANTy ICAgICAgICAgICAgICAgICAgICAgICAgICAgICAgICAgICAgICAgICAgICAgICAgICAgICAgICAgICAg ICAgICAgICAgICAgICAgICAgICAgICAgICAgICAgIC XcLT0ZNRFpGZIzJKLjFKXyIHWuSHEzFGNeOUItLUUpIUGlPXWfAHZtWJNhDANnFJUcGDKbNJNvFXTqCL AdZXNuRQGfLLAeLFSkINXnLJHwGEHeKYBjKHUbVBVmALVlLWOiVAXiAKReCL8AFLIiZJYiBIGfDXWxPN AgICAgICAgICAgICAgICAgICAgICAgICAgICAgICAg YPKlDFJhRJXjRUShWNWaDKYeXMXpHFLtEBPeYREnTUAgCDHcRYGbMNHtJHPoZSYfUPKnMVJwXL3BAA44 mCAqb8Q3YGFaZI3khgh/Nx2SFSkugqHhnSLlSC5PUcSoMM6hmo1YUsElPU0kfk5QJLxFWoWxJ3W2lXDx JFLqDFEFTlHvU79hVXeeJn91ORlwAQIhZeBtOJd3Fk 3JRkUoU2upDLBmIjS8NPMyBzK4EKAqZcZ2ABYrIsOvSSIcQBIrZNPhLRTVLED6YUTxOoMpFbLsYOSwUX 8WLGYsZ210cmQwDv3KUl0VWeBfRH0nhj0EJOGsXOFxFulUQbu1USbtKX2EeUYmlIS5NOZlFSWAAoNxK6 xxz3GbNPNzIUEBNLplEQ3Ae7NziXPaAHt+An8NMG9s w5UzOBm3HJKhYA1sbs6SKPbIFjOxF7HdvMirHAcfKZLvrGMMrVPhbOUbRGKcbLx0NYFNJCJtqMJ3JlJm BgUdUpZlGQj8UFGcMP7rMRxxLV6WJVL5ZVylTAEmKIOdG9fUVyPcPSVyRlMkxQfpGJ2JCpGxG3XjdtYx vHY7NsGjTHEODa0+NOwdifBfUasOHhU0OREwf9WeJK l0GO3KUBLxVNadBB6RZHIzwX6cINogGA7LGpZ5MNVcRNYNWkRqZ22grXMlBTv6W6PzHzQiQNMuQszzBM MgPDwvTmFtZXMgWyBdDQogID4+ID4+JIspJS1TTCrzmmQlFKMvHe4AILNvNHTfOA7qYGRjVCOeG2V3gN ykPYMZWwRqO7lqpqswAD0oVJEqQ006iQrloeZiFEZk XDUvHa4TYWFfFVX3MDOgmDGiPNQwTEKEXMmnIU5CyHIpVTL0fZ8oEXwrEAVxMJFwZ7aWYjGrvMglMM32 bGwgbnVsbCBdDQo+Lg1JZP7ju8AvCHw2tkAtNFpxEZL8ZTkiHAGlDUTuWFAxYFM5FGL7BKCUAbBpNMNh DILeZKspAQRoFDBkku7APXAoFOHuEMW4BgCfSZXhGR HfIEaoBKXqDMY1XSE3VSXnOMKaYW8KVvBbGQWnUYCxNGtxDLUfGSIrkt1KZORmVJEgXPY4KVYsUQOlFN TiKFwiXOMzAIX6Eur4LJAwWLUyMW7RCpKrRGHmTPvmXPKlCRFoFXQuud7TUMMnRAHmDuCfCIFpTOOeHZ HmBQbwGSUoLIHqJsXuBBMsMHCuPK6XAhCfYOIzHOQ4 KkQeAHRoJXYluq6LVEEoLBTkQRV8VzJlSCUdDNRfKVbxJEGvLFT9Gbw3OUDkJYSfRV8LVhUfFKLuAHx4 VcheLYNrUXIcxl1TRTNnPHNvWwt5FFYsFETrFJQtUAejUUAgZXGpKMOqAVZuZTCvES7XDbChWVGeTmJw UXfbZFEhDAXtzk5ZYFOiNTUkURdxSbEsDTVgQTKlGA aiLGJbSAMzGYYpIAMjSSIvZC5ZMxXhYMJnZxTzHUWuUIOeMXNvdz1ZUVVqBBPvYjR2DBRvFUKgHERiBL mnCOYsCLJtGDHeIDWzXLAhXI7RSmZpUXBxFmQ1FoUlTQJbUFKodb8OOXAuTVJxDOLsJDRxEPVpLMCkTS svGJRnCAW7MNPnXUMlLXXrYW4RVzWvBGJtYiC8SyCa JXZxHHNhzz5XWVJiZCWnTXy8PJRkDJSzDPKgDYlsQASuWMF1COLbGWYrRQNsRU8QDbTfFKDcTgowTRLg XKIuMZVmky2MPHWpABIgOeToPvTbMQLzGMBoFJwbNRFvUVR8KYI9XXTxSASpRQ2ZFkPnZEUmSif2AnJz RIPqQUUrtg3LLHDwNUExBFQ1WAHgKNLkRNMnOZdlLE ThVWC2JIR3MTQsRVWzCR0BWfKcFCJwTdK1EeVnKZVuWJKucb3MCWWaYDXqPAM3OqFjZLAuNKSsKGluDZ FmFRW1OmT8YZRuAHKbJK9MEqIdQTGgJcH5AJtnPIZwXNTomc8VHAEaMCPmGOH4OFSzJVAkSDVsHJyxED BtDRU0RKxgXOYfYTSwYH0GKeLfXVOaPiAuUAZhFZVq IIYvcp7FUWWkNLVlPKB5JJJwUPJhEQLtADuzQCKmWDL1YiZ8RROyCMDoLH9TDjDhKQOwKaybYOAlHDOy QZBurn0WIVZrDONxZpV0XVDpWTXiYBTjHOxwTLJyWQS7YAVrJSTdBJGaCR8CEhFvSMokMYKAMeb5COhq X7v1AIU5Tb5WS5Asl5SxSBEsCGRJBQvtBA7ocxBhVZ TdLj6PO6aCIglzQ8G6O8F8GbE2TKS3SeD9BiPfRTu7NdE2JTYuUhJ2Cp1rQIOjHiFeJxorOIjyQAMaYX QyFVGiKxIgDZRyBLEcCGcwFoCbAX8LIi8LJqJ9ZLQ7mFIrZc8NDcg5AHMIIyBuIK2IPBb= ID Date Data Source [id number] 10/11/2020 11:22:27 AM EDT [facility] Name Value Range Interpretation Code Description Data Verna rce(s) Supporting Document(s) Consultation [facility] HHAMVv0eZrCTXnTm72/BEFulUIPte5UhDCehIJn2SLpxEEFyG7BjKEN7bG3hNOB0DNdESjSfLrCrYMIu lbm [file] ICAgICAgICAgICAgICAgICAgICAgICAgICAgICAgIC AgICAgICAgICAgICAgICAgICANCiAgICAgICAgICAgICAgICAgICAgICAgICAgICAgICAgICAgICAgIC AgICAgICAgICAgICAgICAgICAgICAgICAgICAgICAgICAgICAgICAgICAgICAgICAgICAgICAgICAgIC ANCiAgICAgICAgICAgICAgICAgICAgICAgICAgICAg ICAgICAgICAgICAgICAgICAgICAgICAgICAgICAgICAgICAgICAgICAgICAgICAgICAgICAgICAgICAg ICAgICAgICAgICANCiAgICAgICAgICAgICAgICAgICAgICAgICAgICAgICAgICAgICAgICAgICAgICAg ICAgICAgICAgICAgICAgICAgICAgICAgICAgICAgIC AgICAgICAgICAgICAgICAgICAgICANCiAgICAgICAgICAgICAgICAgICAgICAgICAgICAgICAgICAgIC AgICAgICAgICAgICAgICAgICAgICAgICAgICAgICAgICAgICAgICAgICAgICAgICAgICAgICAgICAgIC AgICANCiAgICAgICAgICAgICAgICAgICAgICAgICAg ICAgICAgICAgICAgICAgICAgICAgICAgICAgICAgICAgICAgICAgICAgICAgICAgICAgICAgICAgICAg ICAgICAgICAgICAgICANCiAgICAgICAgICAgICAgICAgICAgICAgICAgICAgICAgICAgICAgICAgICAg ICAgICAgICAgICAgICAgICAgICAgICAgICAgICAgIC AgICAgICAgICAgICAgICAgICAgICAgICANCiAgICAgICAgICAgICAgICAgICAgICAgICAgICAgICAgIC AgICAgICAgICAgICAgICAgICAgICAgICAgICAgICAgICAgICAgICAgICAgICAgICAgICAgICAgICAgIC AgICAgICANCiAgICAgICAgICAgICAgICAgICAgICAg ICAgICAgICAgICAgICAgICAgICAgICAgICAgICAgICAgICAgICAgICAgICAgICAgICAgICAgICAgICAg ICAgICAgICAgICAgICAgICANCiAgICAgICAgICAgICAgICAgICAgICAgICAgICAgICAgICAgICAgICAg ICAgICAgICAgICAgICAgICAgICAgICAgICAgICAgIC AgICAgICAgICAgICAgICAgICAgICAgICAgICANCjw/xJVxY8nrhYCcesO1K1nyEz8EEb0RXZ8pm0LvGW LrTPwhnkVuVqsHNfNlUIXbZsrMVpg7OZmoDY5LcWQpN6IoB5QiZSfdKP9SNQXrRZJsmYHnAVNlRHTgUa P4WHBfOYfwVL4TbZPsGPvgPTWsKOCuHsEwNLUiESZi YUSjTYAyPIZKFRYhWMZzUvMlSGlsLJ3Ws7PclGC1HTi+Dh4INQ8sx9WkHIqvLbWnZS5bcf9LFIaAWwSs H1QyxzM4ICU9NIMvBa9RCFFgCDZhoEOkAROuCZEDChYpO4WzoS29WOJBQh3+GDaggbUyTvqUWrZ2SEXx h5GjDAh5BH7COMNcQDl7pWXrN60mv2QjjCMgEtoaYN CinFIsYMAnagVmcf9kENxDD9exDJXyXF3qMb1xDIKnJEDiPpWtSKTQCP4VKRHkHXOluMWoLUYbTJULLD 8DTYlrZVV6TMHfrmApwFSfVIojEY1FBRZsshDcEcllXPBTPPf+Vx9IEN1ox1StMBrpYZMmMJ0lhp9YRZ kZVePvH2B4lMKeG3C3QTkxCc7MWIIvHXWzPbFiTIOO WAgkCW2LFD3xecR3RG4DtLCqHFYsYMWgbDXgTKw1Y26xlDVjDDyuXS7YIBJ+Reece+Lv2RORMlIRBhZAOz WpNdHAIPHjPtY8XhV2JCi3EjP5LjDB36cBtljbQhKMifPE0YGQ3oELUdGUNKHO2MvZMzfF8xumOjIxKp GYDRFjGvS42aeOOaNROpHCP8UXAyVm6JLHWrD4Efmt QcrEyzcwAcRRRcEFTFJK8PFScejpOelGWieZedPT69tLtdZW9BEz1DPfCzUV7tks9EqPAjKb3STBDxYB 3ZLFLnUATpIPJiKEO2IYDeHnXwWSlzTREoBMEcJOH9ESSzRFHsAX8NTuMbOSJiZaIhGVIuHUBpLUFytr 5XROIzVGZiRXv7HZNcULLmSDDfBApdKTYjTQWsUXK4 YUUlWGPcIO4XAeAnPFGsYCJ4DRCcIWHgKWWbxu1KKFDkPEHkCCG4TkTrHINvBKGxUFpzZXCbDZP1YXa2 WSDhWDUiRU3QPwIsJDIvVHc5ZZZbFILoGTYakc7GXAXpGCWfQFr2QPBcVSLaYRVxOBzhHQWsOFOmOQs2 FEEaOIVkOL7ZDgExUXLePUEvOZFiEFPyUUSfki7LLR RpXZCbLTC6TPBaEJVaRGHsFBbkGVIuDKN0CAGcWUUlLABhHU5KYzDyUGXdIFmoFwtuTATdPHXaes6LSH ZkWPNeBFy3NACsXDXfHKHuFJjbBFLqHUW6NEs6POVmBJHgRD1ASvBtNDKjFQudMtdeZFMoORUijf3JBP ArBOEsIBKjXbEoYNQaSFXuNKuiJGVeVORiPKZ4MUPk ZJMeGE1IIrBbHRMdJwG2DugvPMToVHKhlg0DACMmDAFkEyIvMoVkUQXbEPItUXisHRAqFXTrWXZvGZRb SEVdHS4AOlIoLVWgVlK4SxegMVAyYBCtkj3DGQRuRINkJvf4CJTfOKYvNLJsOExbSQSxKTOyLIG3NGLs YPImRG9XWtYsVDGoPwE9IhFgWECtBGYeyq3UJNBjEG PzSQy8IHQcHQUqRHYmCRgxEXDlOJU9PYThGBJrZUAdKQ7MRrAjDRTmChOwNOAlBOFxPVCykx8ZoYKpfT vjtn3LZFmRFn2DfSyjIWOpPJsoSa9lmQDcISVkPOYZHi1CgkAcHPUaQQQASSgiBULvSKEgLNNzMfh6SA V7Mud9J4V2VsF5YYZ1YAR0DCjuSOMrUbC0MXAiAUM5 HJebRrp8DPa3EAJqEFXjYhg4TGzbA4T9QHB+MG1aREg+Tz1Nc3PytmI2pwJrJIpsUWV8JG6OYGDAG3QQ Cg== ID Date Data Source [id number] 10/11/2020 07:36:04 AM EDT [facility] Name Value Range Interpretation Code Description Data Verna rce(s) Supporting Document(s) [place] [Moles/volume] in Serum or Plasma 0.60-1.20 L [facility] ID Date Data Source [id number] 10/10/2020 10:23:00 AM EDT [facility] Name Value Range Interpretation Code Description Data Verna rce(s) Supporting Document(s) SARS coronavirus 2 RNA [Presence] in Res piratory specimen by SABA with probe detection NEGATIVE [facility] This lab was ordered by [facility] a nd reported by [facility]. ID Date Data Source [id number] 10/03/2020 09:49:00 AM EDT [facility] Name Value Range Interpretation Code Description Data Verna rce(s) Supporting Document(s) SARS coronavirus 2 RNA [Presence] in Res piratory specimen by SABA with probe detection NEGATIVE [facility] This lab was ordered by [facility] a nd reported by [facility]. ID Date Data Source [id number] 09/01/2020 08:07:00 PM EDT [facility] Name Value Range Interpretation Code Description Data Verna rce(s) Supporting Document(s) SARS coronavirus 2 RNA [Presence] in Res piratory specimen by SABA with probe detection NEGATIVE [place] This lab was ordered by [facility] a nd reported by [facility]. ID Date Data Source PAIN MGMT UR 13 PANEL [id number] 09/01/2020 12:00:00 AM EDT eC W1 ([facility]) Name Value Range Interpretation Code Description Data Verna rce(s) Supporting Document(s) Negative Ijstwv=6111 AMPHETAMINE SCREEN, URIN E eCW1 ([facility]) Negative Jhwwta=225 BARBITURATES SCREEN, URIN E eCW1 ([facility]) Negative Wgqbgf=125 BENZODIAZEPINES, URINE SC REEN eCW1 ([facility]) Negative Ahoytx=961 COCAINE SCREEN, URINE eCW 1 ([facility]) Negative Cutoff=20 CANNABINOID SCREEN, URINE eCW1 ([facility]) Negative Wymkss=167 OPIATE SCREEN, URINE eCW1 ([facility]) Negative Cutoff=25 PCP SCREEN, URINE eCW1 ([facility]) Negative Nbvuxb=677 OXYCODONE, SCREEN, URINE eCW1 ([facility]) Negative Fowtea=626 TRAMADOL SCREEN, URINE eC W1 ([facility]) Negative Fmytjf=408 PROPOXYPHENE URINE, SCREE N eCW1 ([facility]) Negative Seupnm=606 MEPERIDINE, URINE SCREEN eCW1 ([facility]) Negative Cuqylp=809 METHADONE, URINE SCREEN e CW1 ([facility]) . PLEASE NOTE: eCW1 ([facility]) ID Date Data Source [id number] 08/19/2020 03:09:00 AM EDT [facility] Name Value Range Interpretation Code Description Data Verna rce(s) Supporting Document(s) SARS coronavirus 2 RNA [Presence] in Res piratory specimen by SABA with probe detection NEGATIVE [facility] This lab was ordered by [facility] a nd reported by [facility]. Procedure Social History Code Duration Value Status Description Data Source(s ) Alcohol intake 10/10/2020 12:00:00 AM EDT Ex-drinker (finding) comp leted Ex- drinker (finding) [facility] Tobacco use and exposure 10/10/2020 12:00:00 AM EDT Never used co mpleted Never used [facility] Smoking 10/10/2020 12:00:00 AM EDT Current every day smoker co mpleted Current every day smoker [facility] Smoking 09/19/2020 12:00:00 AM EDT Current Smoker completed Curre nt Smoker eCW1 ([facility]) Smoking 09/19/2020 12:00:00 AM EDT Current Smoker completed Curre nt Smoker eCW1 ([facility]) Smoking 09/01/2020 12:00:00 AM EDT Current Smoker completed Curre nt Smoker eCW1 ([facility]) Tobacco smoking status NHIS 07/06/2020 12:00:00 AM EST Unknown if e michi smoked [facility] Vital Signs ID Date Data Source UNK Name Value Range Interpretation Code Description Data Source(s) Body weight 128.12 [lb_av] 128.12 [lb_av] eCW1 ([facility]) Body height 64 [in_i] 64 [in_i] eCW1 ([facility]) Body mass index (BMI) [Ratio] 21.99 kg/m2 21.99 kg/m2 eCW1 ([facility]) Heart rate 82 /min 82 /min eCW1 ([facility]) Respiratory rate 19 /min 19 /min eCW1 ([facility]) Body temperature 98 [degF] 98 [degF] eCW1 ([facility]) Systolic blood pressure 111 mm[Hg] 111 mm[Hg] e CW1 ([facility]) Diastolic blood pressure 73 mm[Hg] 73 mm[Hg] eCW1 ([facility]) Body weight 115 [lb_av] 115 [lb_av] eCW1 ([facility]) Body height 64 [in_i] 64 [in_i] eCW1 ([facility]) Body mass index (BMI) [Ratio] 19.74 kg/m2 19.74 kg/m2 eCW1 ([facility]) Heart rate 96 /min 96 /min eCW1 ([facility]) Respiratory rate 18 /min 18 /min eCW1 ([facility]) Body temperature 98 [degF] 98 [degF] eCW1 ([facility]) Systolic blood pressure 140 mm[Hg] 140 mm[Hg] e CW1 ([facility]) Diastolic blood pressure 96 mm[Hg] 96 mm[Hg] eCW1 ([facility]) ID Date Data Source [id number] 10/20/2020 04:13:17 PM [facility] Name Value Range Interpretation Code Description Data Source(s) WEIGHT RECORDED 128.3 lb 128.3 lb [facility] Body height Measured 63 in 63 in [facility] TRANSFER FROM [facility] Patient Treatment Plan of Care Planned Activity Planned Date Details Description Data Source (s) olanzapine 10 MG Oral Tablet 10/20/2020 12:00:00 AM [facility] [place] Carbonate 450 MG Extended Release Oral Tablet 10/20/2020 12:00:00 AM [facility]spital Magnesium Hydroxide 80 MG/ML Oral Suspension 10/14/2020 06:44:57 PM [facility] Acetaminophen 325 MG Oral Tablet 10/10/2020 04:15:58 PM [facility] 24 HR Nicotine 0.875 MG/HR Transdermal Patch 10/06/2020 12:00:00 AM [facility] olanzapine 10 MG Oral Tablet 10/06/2020 12:00:00 AM [facility] montelukast 10 MG Oral Tablet 10/06/2020 12:00:00 AM [facility] Omeprazole 20 MG Delayed Release Oral Capsule 10/06/2020 12:00:00 A M [facility] Tranylcypromine 10 MG Oral Tablet 09/26/2020 12:00:00 AM [facility] Ergocalciferol [id number] UNT Oral Capsule 09/26/2020 12:00:00 AM [facility] Hydroxyzine Hydrochloride 50 MG Oral Tablet 09/26/2020 12:00:00 AM [facility] lamotrigine 150 MG Oral Tablet 09/26/2020 12:00:00 AM [facility] [place] Carbonate 150 MG Oral Capsule 09/14/2020 12:00:00 AM [facility] Fluticasone Propionate 50 MCG/ACT Nasal Suspension (FL ONASE) 09/01/2020 12:00:00 AM [facility]spital Cholecalciferol [id number] UNT Oral Capsule 09/01/2020 12:00:00 AM ED eCW1 ([facility])
[2021-03-16] MEDS ORDERED: FLUTICASONE PROP 0.05% NASAL SPRAY 16 GM (FLONASE) PRN (16:45)
[2021-03-16 19:03] VITALS: BP 103/55
[2021-03-16] MEDS ORDERED: IBUPROFEN 400MG TAB PO PRN (20:30)
[2021-03-17 06:41] VITALS: BP 106/63
[2021-03-17] MEDS: LITHIUM CARBONATE 300 MG **CR** TAB PO SCH (09:22)
[2021-03-17] MEDS ORDERED: POTASSIUM CHLORIDE 10MEQ SR TABLET PO ONE (13:05)
--- NOTE | 2021-03-17 13:05 | HPEPDOC ---
[facility] Medical History & Physical Date of Admission Mar 17, 2021 Date of Service: Mar 17, 2021 History and Physical CHIEF COMPLAINT: "I started him on lithium and had side effects" HISTORY OF PRESENT ILLNESS: 30-year-old female with a past medical history of bipolar disorder with depression presented to the emergency room department with complaints of possible side effects due to her medications as well as suicidal ideations. She reports she recently resumed taking lithium and began to experience cramping of the upper and lower extremities. Patient speech is tangible and at times nongoal-directed. Today, she reports her symptoms have completely resolved. She did report having excessive intake of fluid and low consumption of food. She denies headaches, chest pain, shortness of breath, abdominal pain, nausea, vomiting, problems with urination or bowel movements. PAST MEDICAL HISTORY: As mentioned above PAST SURGICAL HISTORY: Laminectomy SOCIAL HISTORY: Lives at home with her father. Denies smoking, drinking, use recreational drugs FAMILY HISTORY: Noncontributory ALLERGIES: Please see below. REVIEW OF SYSTEMS: 10 point review of system was negative except for what is noted in the HPI HOME MEDICATIONS: Please see below. PHYSICAL EXAMINATION: VITAL SIGNS: Please see below General: Lying in bed, no acute distress Head/Neck/Throat: Trachea midline, mucous membranes moist Eyes: Sclera anicteric, PERRLA Thorax: Normal respiratory effort on room air, lungs clear to auscultation bilaterally, no wheezes/rales/rhonchi Cardiovascular: Normal rate, regular rhythm, normal S1, S2; no S3, S4, rubs/gallops/murmurs Abdomen: Bowel sounds present, soft/nontender/nondistended Genitourinary: No CVA tenderness, no Al[place] in place Musculoskeletal: Moving all extremities, no edema Skin: Warm, dry Neurologic: AAOx3, speech fluent and goal-directed, no focal deficits, grossly intact LABORATORY DATA: See below. IMAGING: No imaging to review at this time MICROBIOLOGY: Please see below. ASSESSMENT/PLAN: #Electrolyte abnormality -Hyponatremia likely due to increased fluid intake. Check urinalysis for specific gravity. Fluid restriction is encouraged. -Hypokalemia, replete. -Repeat labs #Normocytic anemia -Check iron panel #Bipolar disorder -Management as per psychiatry team #DVT prophylax -Encourage ambulation History and physical examination was done in the presence of a butcher's assistant Vital Signs Vital Signs Date Time Temp Pulse Resp B/P (MAP) Pulse Ox O2 Delivery O2 Flow Rate FiO2 03/17/21 06:41 96.9 89 16 106/63 (77) 99 Room Air Laboratory Data Labs 24H Laboratory Tests 2 03/16/21 13:17: Coronavirus (COVID-19)(PCR) NEGATIVE, Influenza Type A (RT-PCR) NEGATIVE, Influenza Type B (RT-PCR) NEGATIVE, Respiratory Syncytial Virus (PCR) NEGATIVE Home Medications Scheduled [place] Carbonate ([place] Carbonate ER) 300 Mg Tablet.er, 300 MG PO DAILY Tranylcypromine Sulfate (Tranylcypromine Sulfate) 10 Mg Tablet, 10 MG PO DAILY Scheduled PRN Fluticasone Propionate (Fluticasone Propionate) 16 Gm [place].susp, 1 SPRAY NA DAILY PRN for CONGESTION Allergies Coded Allergies: hydrocodone (Verified Allergy, Unknown, 05/01/19) lisdexamfetamine (Verified Adverse Reaction, Unknown, hallucinations, 05/01/19) trazodone (Verified Adverse Reaction, Unknown, "numbness", 05/01/19) A-FIB/CHADSVASC A-FIB History Current/History of A-Fib/PAF?: No VIRY KEYES M.D. Mar 17, 2021 13:05
[2021-03-17 16:24] VITALS: BP 95/57
[2021-03-18 06:35] VITALS: BP 100/60
[2021-03-18] MEDS: LITHIUM CARBONATE 300 MG **CR** TAB PO SCH (07:52)
[2021-03-18] MEDS: OMEPRAZOLE 20 MG CAP PO SCH (07:53)
[2021-03-18 08:02] LABS: HEMATOCRIT 34.7 % (36.0-47.0); HEMOGLOBIN 11.7 g/dl (12.0-15.5); MEAN CORPUSCULAR HEMOGLOBIN 31.3 pg (27.0-33.0); MEAN CORPUSCULAR HGB CONC 33.7 g/dl (32.0-36.5); MEAN CORPUSCULAR VOLUME 92.8 fl (80.0-96.0); PLATELET COUNT, AUTOMATED 353 10^3/uL (150-450); RED BLOOD COUNT 3.74 10^6/uL (4.00-5.40); WHITE BLOOD COUNT 8.1 10^3/uL (4.0-10.0)
[2021-03-18 08:26] LABS: BLOOD UREA NITROGEN 7 MG/DL (7-18); CALCIUM LEVEL 9.3 MG/DL (8.5-10.1); CARBON DIOXIDE LEVEL 28 MEQ/L (21-32); CHLORIDE LEVEL 112 MEQ/L (98-107); CREATININE FOR GFR 0.83 MG/DL (0.55-1.30); GLOMERULAR FILTRATION RATE > 60.0 (>60); GLUCOSE, FASTING 86 MG/DL (70-100); MAGNESIUM LEVEL 2.1 MG/DL (1.8-2.4); PHOSPHORUS LEVEL 3.2 MG/DL (2.5-4.9); POTASSIUM SERUM 4.9 MEQ/L (3.5-5.1); SODIUM LEVEL 141 MEQ/L (136-145)
--- NOTE | 2021-03-18 15:25 | MHHPE ---
[facility] HISTORY AND PHYSICAL DATE OF ADMISSION: 03/16/2021 I saw the patient initially on video. She was in the presence of staff, I was at home, to gather information about the patient and then I saw her in the inpatient psychiatry unit. CHIEF COMPLAINT: Feels stressed. SUBJECTIVE: She is 30 years old. She has a history of bipolar disorder, has had several inpatient hospitalizations, including here at [facility]. The last one was in September of this year, was seen for about three days. Please refer to the discharge summary at that time. Patient was discharged on Lamictal 150 mg twice a day, lithium carbonate 150 mg twice a day, olanzapine 10 mg at night and tranylcypromine (Parnate) 10 mg twice a day. She had, at some point more recently, decided to stop taking her medicines. She says she stopped suddenly and spent some time in [place], in that area. Time frame is a bit unclear. Was being seen at the outpatient clinic at [facility] here locally just prior to that. Returned to the area. Says family thought that she was not doing well. Was anxious, depressed, staying in bed most of the time, felt tired, and them more recently, she decided to resume medicines. This was after apparently being off them for about two months or so. When she did, more recently, felt that she had difficulties thinking, felt it was hard to remember things, was not eating much. Suggests had been possibly dehydrated. Was seen at an emergency room (ER), was given intravenous fluids. The sense of difficulties of thinking did not improve, felt confused, and per the ER note, body, she felt, was at times "clenching up," and that she would tend to pace around the house for several hours, was not able to think straight and was fearful. Had some thoughts of suicide, no plans, though did have some plans a couple of weeks ago. Said had poor concentration, at some point along the line had taken Benadryl as well, as difficulty with focus and concentration worsened. She had been on the medicines for about nine days or so, including the Parnate. Says came into the hospital as was concerned regarding her well being, as were her family, especially her father. Feels a bit better and does not feel confused as such, more clearheaded. Vague on suicidal thoughts at present. Says wishes for some stability, given recent events, including the past months, being off medicines and then resuming them and experiencing these recent difficulties, as mentioned above. PAST PSYCHIATRIC HISTORY: Has had several inpatient hospitalizations. Please refer to previous summaries for details. Seen here in September of this year. SOCIAL HISTORY: Lives at home with her father. Also please refer to previous summaries for details. MENTAL STATUS EXAMINATION: She is neat. She is cooperative. There is no agitation. No psychomotor retardation. She is coherent. Affect restricted, but reactive. Denies any suicidal thoughts or intents. No homicidal ideas or intents. Currently no evidence of any psychosis. Cognition is grossly intact in that she is alert and oriented. There is no fluctuation of consciousness. Judgment questionable. Insight fair. ASSESSMENT: 1. Bipolar disorder, most recent episode depressed. 2. Nonadherent to treatment recommendations. 3. Recent resumption of medications. Has a history of bipolar disorder. Has had periods when she has been manic with psychosis and severely depressed as well, nonadherent to treatment recommendations, had stopped taking her medicines recently, for about two months and then resumed them. It is quite possible the combination of lithium and tranylcypromine (Parnate) and then Benadryl may have lead to interactions and possible delirium. Has felt better since stopping the Parnate, which is a monoamine oxidase inhibitor (MAOI), which tends to interact with various medications and requires close monitoring, including that of diet and particular foods, and those, at times, have been difficult. PLAN: She is admitted to the inpatient psychiatry unit, placed on relevant precautions. We will look at obtaining collateral information. She is to continue with lithium carbonate at 300 mg daily, but I would not suggest resuming the monoamine oxidase inhibitor, Parnate, as the risks, including monitoring, outweigh the benefits at this point and the possibility of using other mood stabilizers, which she has in the past, including lamotrigine or olanzapine, ought to be considered. She is to be encouraged to participate in activities in the unit. We will look at obtaining collateral information. She will receive a medicine consultation, if indicated. She will be discharged with followup when she is stable. I anticipate a 5-7 day stay. The assessment took 45 minutes. CAMPOS
[2021-03-18 16:32] VITALS: BP 100/60
[2021-03-18 22:50] LABS: APPEARANCE, URINE CLEAR (CLEAR); BACTERIA, URINE AUTO NEGATIVE (NEGATIVE); BILIRUBIN, URINE AUTO NEGATIVE (NEGATIVE); BLOOD, URINE BLOOD NEGATIVE (NEGATIVE); COLOR, URINE STRAW (YELLOW); GLUCOSE, URINE (UA) AUTO NEGATIVE (NEGATIVE); KETONE, URINE AUTO NEGATIVE (NEGATIVE); LEUKOCYTE ESTERASE, URINE AUTO TRACE (NEGATIVE); NITRITE, URINE AUTO NEGATIVE (NEGATIVE); PROTEIN, URINE AUTO NEGATIVE (NEGATIVE); RBC, URINE AUTO 1 /HPF (0-3); SPECIFIC GRAVITY URINE AUTO 1.002 (1.002-1.035); SQUAMOUS EPITHELIAL CELL UR AU 2 /HPF (0-6); UROBILINOGEN, URINE AUTO 0.2 mg/dL (0.0-2.0); WBC, URINE AUTO 1 /HPF (0-3)
[2021-03-19 06:30] VITALS: BP 101/53
[2021-03-19] MEDS: MOM 30ML SUSPENSION UDC PO PRN (06:45)
[2021-03-19] MEDS: OMEPRAZOLE 20 MG CAP PO SCH (08:57)
[2021-03-19] MEDS: LITHIUM CARBONATE 300 MG **CR** TAB PO SCH (08:57)
[2021-03-19 10:28] LABS: FOLATE 11.1 NG/ML (>5.4)
--- NOTE | 2021-03-19 13:07 | MHIPN ---
[facility] PROGRESS NOTE DATE: 03/18/2021 VITAL SIGNS: Blood pressure 100/60, pulse 75, temperature 97.8. This is a video assessment. She is seen in the presence of staff. She is in the inpatient psychiatry unit. I am at home. CHIEF COMPLAINT: Says feels okay. SUBJECTIVE: Seen for followup. Indicates has been feeling okay and that she slept well. Feels rested. Has eaten. Mild anxiety. MENTAL STATUS EXAMINATION: Neat, cooperative. No agitation. No psychomotor retardation. She is coherent. Affect is reactive. Denies any thoughts of harming herself or anyone else. Current there is no evidence of any psychosis. Cognition grossly intact. Judgment and insight fair. ASSESSMENT: Bipolar disorder, current episode possibly depressed. PLAN: Continue with current care, including the lithium. Would not suggest resuming tranylcypromine. The potential for complications would probably outweigh benefits. Has been on olanzapine in the past but suggests would not wish for it, as she felt it was a "heavy drug." It would remain an option, possibly at a lower dose. May need to consider resuming lamotrigine in addition to the lithium. She is to be encouraged to participate in activities in the unit. She will be seeing the clinicians assigned to her tomorrow, and further recommendations will be made.
[2021-03-19] MEDS: IBUPROFEN 400MG TAB PO PRN (14:00)
--- NOTE | 2021-03-19 15:04 | MHIPNPDOC ---
[facility] Progress Note Progress Note DATE OF SERVICE: 03/19/21 HISTORY: Patient is a 30 years old Single, Unemployed/Disabled, Female who has a history of bipolar disorder, has had several inpatient hospitalizati ons, including here at [facility]. The last one was in September of this year, was seen for about three days. Please refer to the discharge summary at that time. Patient was discharged on Lamictal 150 mg twice a day, lithium carbonate 150 mg twice a day, olanzapine 10 mg at night and tranylcypromine (Parnate) 10 mg twice a day. She came into the hospital reporting feeling stressed and needing to stabilize on her medications. She had, at some point more recently, decided to stop taking her medicines. She says she stopped suddenly and spent some time in [place], in that area. Time frame is a bit unclear. Was being seen at the outpatient clinic at [facility] here locally just prior to that. Returned to the area. Says family thought that she was not doing well. Was anxious, depressed, staying in bed most of the time, felt tired, and them more recently, she decided to resume medi cines. This was after apparently being off them for about two months or so. When she did, more recently, felt that she had difficulties thinking, felt it was hard to remember things, was not eating much. Suggests had been possibly dehydrated. Was seen at an emergency room (ER), was given intravenous fluids. The sense of difficulties of thinking did not improve, felt confused, and per the ER note, body, she felt, was at times "clenching up," and that she would tend to pace around the house for several hours, was not able to think straight and was fearful. Had some thoughts of suicide, no plans, though did have some plans a couple of weeks ago. Said had poor concentration, at some point along the line had taken Benadryl as well, as difficulty with focus and concentration worsened. She had been on the medicines for about nine days or so, including the Parnate. Says came into the hospital as was concerned regarding her well being, as were her family. Feels a bit better and does not feel confused as psarks ch, more clearheaded. Vague on suicidal thoughts at present. Says wishes for some stability, given recent events, including the past months, being off medicines and then resuming them and experiencing these recent difficulties, as mentioned above. VITAL SIGNS: See below. NEW TEST RESULTS: [place] Level tomorrow CURRENT MEDICATIONS: See below. Response to current Medications: Patient is not manic or hypomanic. She reports that she feels very good on the current regiment and does not want to have the Parnate return to the medications list. We discussed that she may need to have Lamictal in order to maintain her baseline which she states that she is very close to, although, she has mild depression. She at this time does not want the Lamictal and states that she is seeing her provider on Friday and is hoping to be discharge on that morning. She denies any side effects or adverse issues. Patient declines any additional medications to detract manic episode in the future. MENTAL STATUS EXAMINATION: Patient is a 30 years old Single, Unemployed/Disabled, Female who brought herself to the hospital after a recent manic episode this summer where she had stopped taking her medications and then became depressed Speech: Is fluid, conversant, normal rate, tone and volume Language skills are intact Thought processes including: linear and goal oriented and coherent Thought content: reports mild depression and denies anxiety. Denies suicidal/homicidal ideation, planning or intent. Abstract reasoning, and computation: fair Description of associations: denies, none observed Description of abnormal or psychotic thoughts: denies, none observed. Judgment: good Insight: good Orientation: alert and oriented to person, place, time and situation Recent and remote memory: intact Attention span and concentration: good Language: expansive Fund of knowledge: average Mood: Euthymic Mood Affect: reactive DIAGNOSES: 1. Bipolar disorder, most recent episode depressed. 2. Nonadherent to treatment recommendations. 3. Recent resumption of medications. ASSESSMENT: Patient is alert and oriented. She is very pleasant and cooperative in the individual interview. She is on [place] 300 mg daily. On her last discharge patient was discharged on the following medications: Lamotrigine 150 Mg Capsule, 150 MG PO BID, [place] Carbonate 150 MG PO BID, Olanzapine 10 Mg 1QHS and Tranylcypromine Sulfate 10 MG PO BID, Patient is currently only on [place] 300 mg daily and states that she feels very good. She is observed to be very stable but has had past psychiatric hospitalization where she rapidly cycles. Have discussed at length with the patient that she may need another mood stabilizer but at this time she is observed doing very well, euthymic with good insight and judgment. She declines any changes to her medications. She is observed speaking to peers appropriately. Speech is not manic or fast or pressured. Her thought process is linear. MANAGEMENT PLAN: Patient is continued on current regimen. Continue all sparks pportive therapies and will discharge on Friday TIME SPENT: 25 minutes. Vital Signs Vital Signs Date Time Temp Pulse Resp B/P (MAP) Pulse Ox O2 Delivery O2 Flow Rate FiO2 03/19/21 06:30 97.3 61 16 101/53 (69) 99 Room Air Laboratory Data 24H Labs Laboratory Tests 2 03/18/21 22:31: Urine Color STRAW, Urine Appearance CLEAR, Urine pH 7.0, Urine Specific [place] 1.002, Urine Protein NEGATIVE, Urine Glucose (Auto)(UA) NEGATIVE, Urine Ketones (Auto) NEGATIVE, Urine Blood NEGATIVE, Urine Nitrite NEGATIVE, Urine Bilirubin NEGATIVE, Urine Urobilinogen 0.2, Urine Leukocyte Esterase (Auto) TRACEH, Urine WBC (Auto) 1, Urine RBC (Auto) 1, Urine Hyaline Casts (Auto) 0, Urine Bacteria (Auto) NEGATIVE, Urine Squamous Epithelial Cells 2, Urine Sperm (Auto) 03/19/21 08:38: [place] Level 0.25L Current Medications Current Medications Medications (Trade) Dose Ordered Sig/Lynn Route PRN Reason Start Time Stop Time Status Last Admin Dose Admin Acetaminophen (Tylenol Tab) 650 mg Q6HP PRN PO HEADACHE or MILD DISCOMFORT 03/16/21 14:25 Al Hydrox/Mg Hydrox/Simethicone (Mylanta) 30 ml Q4HP PRN PO HEARTBURN/INDIGESTION 03/16/21 14:25 Fluticasone Propionate (Flonase 0.05% Nasal [place]) 1 spray DAILYPRN PRN NA CONGESTION 03/16/21 16:45 Home Med (Home Med List Complete!) ASDIRECTED XX 03/16/21 09:55 03/16/21 09:56 DC Ibuprofen (Advil) 400 mg DAILY PRN PO MILD/MODERATE PAIN (PS 1-7) 03/16/21 20:30 03/19/21 11:00 DC Ibuprofen (Advil) 400 mg DAILYPRN PRN PO MILD/MODERATE PAIN (PS 1-7) 03/19/21 11:25 03/19/21 14:00 [place] Carbonate (Lithobid Cr) 300 mg DAILY PO 03/16/21 09:00 03/16/21 16:48 DC 03/16/21 10:44 [place] Carbonate (Lithobid Cr) 300 mg DAILY PO 03/17/21 09:00 03/19/21 08:57 Magnesium Hydroxide (Milk Of Magnesia) 30 ml DAILYPRN PRN PO CONSTIPATION 03/16/21 14:25 03/19/21 06:45 Omeprazole (PriLOSEC) 20 mg DAILY PO 03/18/21 09:00 03/19/21 08:57 Sertraline HCl (Zoloft) 50 mg DAILY PO 03/16/21 09:00 Cancel Allergies Coded Allergies: hydrocodone (Verified Allergy, Unknown, 05/01/19) lisdexamfetamine (Verified Adverse Reaction, Unknown, hallucinations, 05/01/19) trazodone (Verified Adverse Reaction, Unknown, "numbness", 05/01/19) UZMA NASH NP Mar 19, 2021 14:27
[2021-03-19 17:54] VITALS: BP 96/50
[2021-03-20 06:37] VITALS: BP 102/50
[2021-03-20] MEDS: LITHIUM CARBONATE 300 MG **CR** TAB PO SCH ×2 (08:32→21:28)
[2021-03-20] MEDS: OMEPRAZOLE 20 MG CAP PO SCH (08:32)
[2021-03-20] MEDS: IBUPROFEN 400MG TAB PO PRN (14:06)
--- NOTE | 2021-03-20 14:40 | MHIPNPDOC ---
[facility] Progress Note Progress Note DATE OF SERVICE: 03/20/21 HISTORY: Patient is a 30 years old Single, Unemployed/Disabled, Female who has a history of bipolar disorder, has had several inpatient hospitalizati ons, including here at [facility]. The last one was in September of this year, was seen for about three days. Please refer to the discharge summary at that time. Patient was discharged on Lamictal 150 mg twice a day, lithium carbonate 150 mg twice a day, olanzapine 10 mg at night and tranylcypromine (Parnate) 10 mg twice a day. She came into the hospital reporting feeling stressed and needing to stabilize on her medications. She had, at some point more recently, decided to stop taking her medicines. She says she stopped suddenly and spent some time in [place], in that area. Time frame is a bit unclear. Was being seen at the outpatient clinic at [facility] here locally just prior to that. Returned to the area. Says family thought that she was not doing well. Was anxious, depressed, staying in bed most of the time, felt tired, and them more recently, she decided to resume medi cines. This was after apparently being off them for about two months or so. When she did, more recently, felt that she had difficulties thinking, felt it was hard to remember things, was not eating much. Suggests had been possibly dehydrated. Was seen at an emergency room (ER), was given intravenous fluids. The sense of difficulties of thinking did not improve, felt confused, and per the ER note, body, she felt, was at times "clenching up," and that she would tend to pace around the house for several hours, was not able to think straight and was fearful. Had some thoughts of suicide, no plans, though did have some plans a couple of weeks ago. Said had poor concentration, at some point along the line had taken Benadryl as well, as difficulty with focus and concentration worsened. She had been on the medicines for about nine days or so, including the Parnate. Says came into the hospital as was concerned regarding her well being, as were her family. Feels a bit better and does not feel confused as sparks ch, more clearheaded. Vague on suicidal thoughts at present. Says wishes for some stability, given recent events, including the past months, being off medicines and then resuming them and experiencing these recent difficulties, as mentioned above. VITAL SIGNS: See below. NEW TEST RESULTS: [place] level 0.26 CURRENT MEDICATIONS: See below. RESPONSE TO MEDICATIONS: Patient's lithium level is low. Discussed this with patient. On her last discharge patient was on lithium 300 mg twice daily. Reviewed with patient risk versus benefits and side effects. Patient is agreeable to increasing lithium from 300 mg daily to 300 mg twice daily. ILLNESS EDUCATION: Review of bipolar symptoms. Reviewed patient's increasing manic symptoms where she had flight to [place] and lived in a homeless long-term. Discussed with her that this was the start of bipolar exacerbations and she verbalized understanding. Discussed the need for continued compliance with treatment and medication. Response to current Medications: Patient is not manic or hypomanic. She reports that she feels very good on the current regiment and does not want to have the Parnate return to the medications list. We discussed that she may need to have Lamictal in order to maintain her baseline which she states that she is very close to, although, she has mild depression. She at this time does not want the Lamictal and states that she is seeing her provider on Friday and is hoping to be discharge on that morning. She denies any side effects or adverse issues. Patient declines any additional medications to detract manic episode in the future. MENTAL STATUS EXAMINATION: Patient is a 30 years old Single, Unemployed/Disabled, Female who brought herself to the hospital after a recent manic episode this summer where she had stopped taking her medications and then became depressed Speech: Is fluid, conversant, normal rate, tone and volume Language skills are intact Thought processes including: linear and goal oriented and coherent Thought content: reports mild depression and denies anxiety. Denies suicidal/homicidal ideation, planning or intent. Abstract reasoning, and computation: fair Description of associations: denies, none observed Description of abnormal or psychotic thoughts: denies, none observed. Judgment: good Insight: good Orientation: alert and oriented to person, place, time and situation Recent and remote memory: intact Attention span and concentration: good Language: expansive Fund of knowledge: average Mood: Euthymic Mood Affect: reactive DIAGNOSES: 1. Bipolar disorder, most recent episode depressed. 2. Nonadherent to treatment recommendations. 3. Recent resumption of medications. ASSESSMENT: Patient is alert and oriented. She is very pleasant and cooperative in the individual interview. Patient is coherent. Linear and goal oriented and her interview today. She is not observed with any manic, psychotic, delusional, paranoid, or bizarre behaviors. She denies depression anxiety suicidal ideations homicidal ideations planning or intent. Patient is attending groups, social in the milieu, visible and participating in unit activities. Patient to be converted to voluntary as she is requesting a few more days. She had reported that she was in disagreement with her father over the phone as it appears that he wants her to stay in the hospital a little longer. Patient continues to be a model patient. MANAGEMENT PLAN: Patient is continued on current regimen. Continue all supportive therapies and will discharge when stable. TIME SPENT: 25 minutes. Vital Signs Vital Signs Date Time Temp Pulse Resp B/P (MAP) Pulse Ox O2 Delivery O2 Flow Rate FiO2 03/20/21 10:22 Room Air 03/20/21 06:37 97.5 65 18 102/50 (67) 98 Laboratory Data 24H Labs Laboratory Tests 2 03/20/21 06:29: [place] Level 0.26L Current Medications Current Medications Medications (Trade) Dose Ordered Sig/Lynn Route PRN Reason Start Time Stop Time Status Last Admin Dose Admin Acetaminophen (Tylenol Tab) 650 mg Q6HP PRN PO HEADACHE or MILD DISCOMFORT 03/16/21 14:25 Al Hydrox/Mg Hydrox/Simethicone (Mylanta) 30 ml Q4HP PRN PO HEARTBURN/INDIGESTION 03/16/21 14:25 Fluticasone Propionate (Flonase 0.05% Nasal [place]) 1 spray DAILYPRN PRN NA CONGESTION 03/16/21 16:45 Home Med (Home Med List Complete!) ASDIRECTED XX 03/16/21 09:55 03/16/21 09:56 DC Ibuprofen (Advil) 400 mg DAILY PRN PO MILD/MODERATE PAIN (PS 1-7) 03/16/21 20:30 03/19/21 11:00 DC Ibuprofen (Advil) 400 mg DAILYPRN PRN PO MILD/MODERATE PAIN (PS 1-7) 03/19/21 11:25 03/19/21 14:00 [place] Carbonate (Lithobid Cr) 300 mg DAILY PO 03/16/21 09:00 03/16/21 16:48 DC 03/16/21 10:44 [place] Carbonate (Lithobid Cr) 300 mg DAILY PO 03/17/21 09:00 03/20/21 08:32 Magnesium Hydroxide (Milk Of Magnesia) 30 ml DAILYPRN PRN PO CONSTIPATION 03/16/21 14:25 03/19/21 06:45 Omeprazole (PriLOSEC) 20 mg DAILY PO 03/18/21 09:00 03/20/21 08:32 Sertraline HCl (Zoloft) 50 mg DAILY PO 03/16/21 09:00 Cancel Allergies Coded Allergies: hydrocodone (Verified Allergy, Unknown, 05/01/19) lisdexamfetamine (Verified Adverse Reaction, Unknown, hallucinations, 05/01/19) trazodone (Verified Adverse Reaction, Unknown, "numbness", 05/01/19) UZMA NASH NP Mar 20, 2021 11:42
[2021-03-20 19:19] VITALS: BP 110/60
[2021-03-20] MEDS: MOM 30ML SUSPENSION UDC PO PRN (21:28)
[2021-03-21 06:39] VITALS: BP 114/70
[2021-03-21] MEDS: LITHIUM CARBONATE 300 MG **CR** TAB PO SCH ×2 (09:19→20:28)
[2021-03-21] MEDS: OMEPRAZOLE 20 MG CAP PO SCH (09:19)
--- NOTE | 2021-03-21 12:46 | MHIPNPDOC ---
[facility] Progress Note Progress Note DATE OF SERVICE: 03/21/21 HISTORY: 30-year-old woman admitted for management of bipolar disorder. [place] was increased yesterday in response to low lithium level. On interview today she appears more composed, and talks about her desires to return home but acknowledges that she may need to try different medications to maintain her stability.. VITAL SIGNS: See below. NEW TEST RESULTS: None. CURRENT MEDICATIONS: See below. MENTAL STATUS EXAMINATION: Patient is a 30-year old female, who is dressed in lightweight clothing with long sleeves. Mild tremor noted bilaterally, slightly worse in right hand side, disappears with intentional movement. Speech: Is clear, with regular rhythm and volume, mildly rapid rate but not pressured. Language skills are intact. Thought processes including: Linear, logical, and goal oriented. Thought content: Absent of SI, HI, AVH. Abstract reasoning, and computation: Intact. Description of associations: Linear. Description of abnormal or psychotic thoughts: No paranoia or delusions noted, denies AVH, does not appear to be spine to internal stimuli. Judgment: Fair. Insight: Good. Orientation: X3. Recent and remote memory: Intact based upon recollected timeline in comparison with recorded notes. Attention span and concentration: Intact. Mood: Good. Affect: Bright/euthymic, stable, congruent to stated mood. DIAGNOSES: 1. Bipolar disorder, most recent episode depressed. ASSESSMENT: Soraya appears to be doing well, she does not appear manic on interview today. There was a mild tremor noted in bilateral upper limbs, slightly worse on the right than left. Disappears with intention and does not appear to be related to lithium. Soraya reports that she had tremor prior to being on lithium, she is uncertain of this is may be a side effect of tranylcypromine that she was on before. Feels that the lithium is working well, acknowledges that she may need to consider dual pharmacotherapy such as lamotrigine which is been recommended previously. MANAGEMENT PLAN: Continue current medications, would recommend lithium draw to establish baseline levels tomorrow in the evening prior to nighttime dose of lit hium. Primary team will continue to evaluate and decide readiness for discharge. TIME SPENT: minutes. Vital Signs Vital Signs Date Time Temp Pulse Resp B/P (MAP) Pulse Ox O2 Delivery O2 Flow Rate FiO2 03/21/21 09:50 Room Air 03/21/21 06:39 97.9 71 16 114/70 (85) 100 Current Medications Current Medications Medications (Trade) Dose Ordered Sig/Lynn Route PRN Reason Start Time Stop Time Status Last Admin Dose Admin Acetaminophen (Tylenol Tab) 650 mg Q6HP PRN PO HEADACHE or MILD DISCOMFORT 03/16/21 14:25 Al Hydrox/Mg Hydrox/Simethicone (Mylanta) 30 ml Q4HP PRN PO HEARTBURN/INDIGESTION 03/16/21 14:25 Fluticasone Propionate (Flonase 0.05% Nasal [place]) 1 spray DAILYPRN PRN NA CONGESTION 03/16/21 16:45 Home Med (Home Med List Complete!) ASDIRECTED XX 03/16/21 09:55 03/16/21 09:56 DC Ibuprofen (Advil) 400 mg DAILY PRN PO MILD/MODERATE PAIN (PS 1-7) 03/16/21 20:30 03/19/21 11:00 DC Ibuprofen (Advil) 400 mg DAILYPRN PRN PO MILD/MODERATE PAIN (PS 1-7) 03/19/21 11:25 03/20/21 14:06 [place] Carbonate (Lithobid Cr) 300 mg BID PO 03/20/21 21:00 03/21/21 09:19 [place] Carbonate (Lithobid Cr) 300 mg DAILY PO 03/16/21 09:00 03/16/21 16:48 DC 03/16/21 10:44 [place] Carbonate (Lithobid Cr) 300 mg DAILY PO 03/17/21 09:00 03/20/21 14:31 DC 03/20/21 08:32 Magnesium Hydroxide (Milk Of Magnesia) 30 ml DAILYPRN PRN PO CONSTIPATION 03/16/21 14:25 03/20/21 21:28 Omeprazole (PriLOSEC) 20 mg DAILY PO 03/18/21 09:00 03/21/21 09:19 Sertraline HCl (Zoloft) 50 mg DAILY PO 03/16/21 09:00 Cancel Allergies Coded Allergies: hydrocodone (Verified Allergy, Unknown, 05/01/19) lisdexamfetamine (Verified Adverse Reaction, Unknown, hallucinations, 05/01/19) trazodone (Verified Adverse Reaction, Unknown, "numbness", 05/01/19) PUNEET FARRELL MD Mar 21, 2021 11:06
[2021-03-21] MEDS: IBUPROFEN 400MG TAB PO PRN (15:02)
[2021-03-21 17:50] VITALS: BP 116/74
[2021-03-22 06:12] VITALS: BP 103/55
[2021-03-22] MEDS: LITHIUM CARBONATE 300 MG **CR** TAB PO SCH ×2 (08:06→21:41)
[2021-03-22] MEDS: OMEPRAZOLE 20 MG CAP PO SCH (08:06)
--- NOTE | 2021-03-22 14:42 | MHIPNPDOC ---
[facility] Progress Note Progress Note DATE OF SERVICE: 03/20/21 HISTORY: Patient is a 30 years old Single, Unemployed/Disabled, Female who has a history of bipolar disorder, has had several inpatient hospitalizati ons, including here at [facility]. The last one was in September of this year, was seen for about three days. Please refer to the discharge summary at that time. Patient was discharged on Lamictal 150 mg twice a day, lithium carbonate 150 mg twice a day, olanzapine 10 mg at night and tranylcypromine (Parnate) 10 mg twice a day. She came into the hospital reporting feeling stressed and needing to stabilize on her medications. She had, at some point more recently, decided to stop taking her medicines. She says she stopped suddenly and spent some time in [place], in that area. Time frame is a bit unclear. Was being seen at the outpatient clinic at [facility] here locally just prior to that. Returned to the area. Says family thought that she was not doing well. Was anxious, depressed, staying in bed most of the time, felt tired, and them more recently, she decided to resume medi cines. This was after apparently being off them for about two months or so. When she did, more recently, felt that she had difficulties thinking, felt it was hard to remember things, was not eating much. Suggests had been possibly dehydrated. Was seen at an emergency room (ER), was given intravenous fluids. The sense of difficulties of thinking did not improve, felt confused, and per the ER note, body, she felt, was at times "clenching up," and that she would tend to pace around the house for several hours, was not able to think straight and was fearful. Had some thoughts of suicide, no plans, though did have some plans a couple of weeks ago. Said had poor concentration, at some point along the line had taken Benadryl as well, as difficulty with focus and concentration worsened. She had been on the medicines for about nine days or so, including the Parnate. Says came into the hospital as was concerned regarding her well being, as were her family. Feels a bit better and does not feel confused as sparks ch, more clearheaded. Vague on suicidal thoughts at present. Says wishes for some stability, given recent events, including the past months, being off medicines and then resuming them and experiencing these recent difficulties, as mentioned above. VITAL SIGNS: See below. NEW TEST RESULTS: [place] level 0.26 CURRENT MEDICATIONS: See below RESPONSE TO MEDICATIONS: Patient is doing well on current regimen of [place], denies any side effects. Not observed with any tremors. Will order lithium level tomorrow night ILLNESS EDUCATION: Reviewed with patient bipolar manic and depressive symptoms. States that she needs to be aware of increasing racing thoughts energized behaviors and recognizing the need for a mood stabilizer in the future. MENTAL STATUS EXAMINATION: Patient is a 30 years old Single, Unemployed/Disabled, Female who brought herself to the hospital after a recent manic episode this summer where she had stopped taking her medications and then became depressed Speech: Is fluid, conversant, normal rate, tone and volume Language skills are intact Thought processes including: linear and goal oriented and coherent Thought content: Decrease in depression and denies anxiety. Denies suicidal/homicidal ideation, planning or intent. Abstract reasoning, and computation: fair Description of associations: denies, none observed Description of abnormal or psychotic thoughts: denies, none observed. Judgment: good Insight: good Orientation: alert and oriented to person, place, time and situation Recent and remote memory: intact Attention span and concentration: good Language: expansive Fund of knowledge: average Mood: Euthymic Mood Affect: reactive DIAGNOSES: 1. Bipolar disorder, most recent episode depressed. 2. Nonadherent to treatment recommendations. 3. Recent resumption of medications. ASSESSMENT: Patient alert and oriented. She is dressed appropriately wearing personal clothes. Her hygiene and grooming is well kempt. Makes good eye contact in her speech is fluid, spontaneous, normal rate tone and volume. She states that she "feels good "reports feeling less emotional sensitivity (not as tearful or labile) patient reports that throughout the day she does have periods of low mood. Is requesting to be discharged next week. MANAGEMENT PLAN: Patient is continued on current regimen. Continue all supportive therapies and will discharge when stable. TIME SPENT: 25 minutes. Vital Signs Vital Signs Date Time Temp Pulse Resp B/P (MAP) Pulse Ox O2 Delivery O2 Flow Rate FiO2 03/22/21 06:12 98.1 60 16 103/55 (71) 98 Room Air Current Medications Current Medications Medications (Trade) Dose Ordered Sig/Lynn Route PRN Reason Start Time Stop Time Status Last Admin Dose Admin Acetaminophen (Tylenol Tab) 650 mg Q6HP PRN PO HEADACHE or MILD DISCOMFORT 03/16/21 14:25 Al Hydrox/Mg Hydrox/Simethicone (Mylanta) 30 ml Q4HP PRN PO HEARTBURN/INDIGESTION 03/16/21 14:25 Fluticasone Propionate (Flonase 0.05% Nasal [place]) 1 spray DAILYPRN PRN NA CONGESTION 03/16/21 16:45 Home Med (Home Med List Complete!) ASDIRECTED XX 03/16/21 09:55 03/16/21 09:56 DC Ibuprofen (Advil) 400 mg DAILY PRN PO MILD/MODERATE PAIN (PS 1-7) 03/16/21 20:30 03/19/21 11:00 DC Ibuprofen (Advil) 400 mg DAILYPRN PRN PO MILD/MODERATE PAIN (PS 1-7) 03/19/21 11:25 03/21/21 15:02 [place] Carbonate (Lithobid Cr) 300 mg BID PO 03/20/21 21:00 03/22/21 08:06 [place] Carbonate (Lithobid Cr) 300 mg DAILY PO 03/16/21 09:00 03/16/21 16:48 DC 03/16/21 10:44 [place] Carbonate (Lithobid Cr) 300 mg DAILY PO 03/17/21 09:00 03/20/21 14:31 DC 03/20/21 08:32 Magnesium Hydroxide (Milk Of Magnesia) 30 ml DAILYPRN PRN PO CONSTIPATION 03/16/21 14:25 03/20/21 21:28 Omeprazole (PriLOSEC) 20 mg DAILY PO 03/18/21 09:00 03/22/21 08:06 Sertraline HCl (Zoloft) 50 mg DAILY PO 03/16/21 09:00 Cancel Allergies Coded Allergies: hydrocodone (Verified Allergy, Unknown, 05/01/19) lisdexamfetamine (Verified Adverse Reaction, Unknown, hallucinations, 05/01/19) trazodone (Verified Adverse Reaction, Unknown, "numbness", 05/01/19) UZMA NASH NP Mar 22, 2021 14:41
[2021-03-22 18:01] VITALS: BP 111/53
[2021-03-23 06:42] VITALS: BP 120/54
[2021-03-23] MEDS ORDERED: FLUTICASONE PROP 0.05% NASAL SPRAY 16 GM (FLONASE) NARES SCH (09:00)
[2021-03-23] MEDS: LITHIUM CARBONATE 300 MG **CR** TAB PO SCH ×2 (09:36→21:36)
[2021-03-23] MEDS: FLUTICASONE PROP 0.05% NASAL SPRAY 16 GM (FLONASE) NARES PRN (09:36)
[2021-03-23] MEDS: OMEPRAZOLE 20 MG CAP PO SCH (09:36)
--- NOTE | 2021-03-23 16:02 | MHIPNPDOC ---
[facility] Progress Note Progress Note Date of Service 03/23/21 History: Patient is a 30 years old Single, Unemployed/Disabled, Female who has a history of bipolar disorder, has had several inpatient hospitalizations, including here at [facility]. She had, at some point more recently, decided to stop taking her medicines. She says she stopped suddenly and spent some time in [place], in that area. She recently returned to the area. Says family thought that she was not doing well. Was anxious, depressed, staying in bed most of the time, felt tired, and them more recently, she decided to resume medicines. This was after apparently being off them for about two months or so. When she did, more recently, felt that she had difficulties thinking, felt it was hard to remember things, was not eating much. Suggests had been possibly dehydrated. Was seen at an emergency room (ER), was given intravenous fluids. The sense of difficulties of thinking did not improve, felt confused, and per the ER note, body, she felt, was at times "clenching up," and that she would tend to pace around the house for several hours, was not able to think straight and was fearful. VITAL SIGNS: See below. NEW TEST RESULTS: [place] level tonight CURRENT MEDICATIONS: See below RESPONSE TO MEDICATIONS: ILLNESS EDUCATION: MENTAL STATUS EXAMINATION: Patient is a 30 years old Single, Unemployed/Disabled, Female who brought herself to the hospital after a recent manic episode this summer where she had stopped taking her medications and then became depressed Speech: Is fluid, conversant, normal rate, tone and volume Language skills are intact Thought processes including: linear and goal oriented and coherent Thought content: Decrease in depression and denies anxiety. Denies suicidal/homicidal ideation, planning or intent. Abstract reasoning, and computation: fair Description of associations: denies, none observed Description of abnormal or psychotic thoughts: denies, none observed. Judgment: good Insight: good Orientation: alert and oriented to person, place, time and situation Recent and remote memory: intact Attention span and concentration: good Language: expansive Fund of knowledge: average Mood: Euthymic Mood Affect: reactive DIAGNOSES: 1. Bipolar disorder, most recent episode depressed. 2. Nonadherent to treatment recommendations. 3. Recent resumption of medications. ASSESSMENT: Patient is reporting continued stability, has good insight into her trends of bipolar symptoms. Denies depression anxiety or suicidal ideations at this time. She is not observed with ammy psychotic symptoms or delusions. Attending groups and cooperative on the unit. [place] level ordered for tonight. Patient given supportive therapy with regards to looking at trends in highs and lows of her symptoms encouraged her to journal these symptoms MANAGEMENT PLAN: Patient is continued on current regimen. Continue all supportive therapies and will discharge when stable. TIME SPENT: 25 minutes. Vital Signs Vital Signs Date Time Temp Pulse Resp B/P (MAP) Pulse Ox O2 Delivery O2 Flow Rate FiO2 03/23/21 06:42 99.0 68 16 120/54 (76) 98 Room Air Current Medications Current Medications Medications (Trade) Dose Ordered Sig/Lynn Route PRN Reason Start Time Stop Time Status Last Admin Dose Admin Acetaminophen (Tylenol Tab) 650 mg Q6HP PRN PO HEADACHE or MILD DISCOMFORT 03/16/21 14:25 Al Hydrox/Mg Hydrox/Simethicone (Mylanta) 30 ml Q4HP PRN PO HEARTBURN/INDIGESTION 03/16/21 14:25 Fluticasone Propionate (Flonase 0.05% Nasal [place]) 1 spray DAILY PRN [place] CONGESTION 03/22/21 15:20 03/23/21 09:36 Fluticasone Propionate (Flonase 0.05% Nasal [place]) 1 spray DAILYPRN PRN NA CONGESTION 03/16/21 16:45 03/22/21 15:16 DC Fluticasone Propionate (Flonase 0.05% Nasal [place]) 2 spray DAILY NARES 03/23/21 09:00 03/22/21 15:19 DC Home Med (Home Med List Complete!) ASDIRECTED XX 03/16/21 09:55 03/16/21 09:56 DC Ibuprofen (Advil) 400 mg DAILY PRN PO MILD/MODERATE PAIN (PS 1-7) 03/16/21 20:30 03/19/21 11:00 DC Ibuprofen (Advil) 400 mg DAILYPRN PRN PO MILD/MODERATE PAIN (PS 1-7) 03/19/21 11:25 03/21/21 15:02 [place] Carbonate (Lithobid Cr) 300 mg BID PO 03/20/21 21:00 03/23/21 09:36 [place] Carbonate (Lithobid Cr) 300 mg DAILY PO 03/16/21 09:00 03/16/21 16:48 DC 03/16/21 10:44 [place] Carbonate (Lithobid Cr) 300 mg DAILY PO 03/17/21 09:00 03/20/21 14:31 DC 03/20/21 08:32 Magnesium Hydroxide (Milk Of Magnesia) 30 ml DAILYPRN PRN PO CONSTIPATION 03/16/21 14:25 03/20/21 21:28 Omeprazole (PriLOSEC) 20 mg DAILY PO 03/18/21 09:00 03/23/21 09:36 Sertraline HCl (Zoloft) 50 mg DAILY PO 03/16/21 09:00 Cancel Allergies Coded Allergies: hydrocodone (Verified Allergy, Unknown, 05/01/19) lisdexamfetamine (Verified Adverse Reaction, Unknown, hallucinations, 05/01/19) trazodone (Verified Adverse Reaction, Unknown, "numbness", 05/01/19) UZMA NASH NP Mar 23, 2021 12:52
[2021-03-23 19:02] VITALS: BP 95/50
[2021-03-24 07:33] VITALS: BP 90/55
[2021-03-24] MEDS: OMEPRAZOLE 20 MG CAP PO SCH (08:37)
[2021-03-24] MEDS: LITHIUM CARBONATE 300 MG **CR** TAB PO SCH ×2 (08:37→21:32)
[2021-03-24] MEDS: FLUTICASONE PROP 0.05% NASAL SPRAY 16 GM (FLONASE) NARES PRN (08:38)
[2021-03-24 18:49] VITALS: BP 134/58
[2021-03-25 06:00] VITALS: BP 108/64
[2021-03-25] MEDS: OMEPRAZOLE 20 MG CAP PO SCH (09:38)
[2021-03-25] MEDS: LITHIUM CARBONATE 300 MG **CR** TAB PO SCH ×2 (09:38→21:24)
[2021-03-25] MEDS: FLUTICASONE PROP 0.05% NASAL SPRAY 16 GM (FLONASE) NARES PRN (09:40)
[2021-03-25 18:46] VITALS: BP 112/77
[2021-03-25] MEDS: MOM 30ML SUSPENSION UDC PO PRN (21:24)
[2021-03-26] MEDS: FLUTICASONE PROP 0.05% NASAL SPRAY 16 GM (FLONASE) NARES PRN (09:54)
[2021-03-26] MEDS: LITHIUM CARBONATE 300 MG **CR** TAB PO SCH ×2 (09:55→21:21)
[2021-03-26] MEDS: OMEPRAZOLE 20 MG CAP PO SCH (09:55)
[2021-03-26 16:12] VITALS: BP 100/58
--- NOTE | 2021-03-26 17:01 | MHIPNPDOC ---
[facility] Progress Note Progress Note Date of Service 03/23/21 History: Patient is a 30 years old Single, Unemployed/Disabled, Female who has a history of bipolar disorder, has had several inpatient hospitalizations, including here at [facility]. She had, at some point more recently, decided to stop taking her medicines. She says she stopped suddenly and spent some time in [place], in that area. She recently returned to the area. Says family thought that she was not doing well. Was anxious, depressed, staying in bed most of the time, felt tired, and them more recently, she decided to resume medicines. This was after apparently being off them for about two months or so. When she did, more recently, felt that she had difficulties thinking, felt it was hard to remember things, was not eating much. Suggests had been possibly dehydrated. Was seen at an emergency room (ER), was given intravenous fluids. The sense of difficulties of thinking did not improve, felt confused, and per the ER note, body, she felt, was at times "clenching up," and that she would tend to pace around the house for several hours, was not able to think straight and was fearful. VITAL SIGNS: See below. NEW TEST RESULTS: Bolton level tonight CURRENT MEDICATIONS: See below RESPONSE TO MEDICATIONS: Patient has no complaints about Bolton. Reports no side effects of adverse reactions. Patient is stable at current dose, no episodes of manic behaviors. ILLNESS EDUCATION: Have educated patient at length about her manic behaviors in the past, that she is able to make good and sound choices when she is in the midst of her Bipolar. Have recommended that patient keep track of her moods and her behaviors on daily journal. Educated to be very sensitive to changes and possibly hypomania. MENTAL STATUS EXAMINATION: Patient is a 30 years old Single, Unemployed/Disabled, Female who brought herself to the hospital after a recent manic episode this summer where she had stopped taking her medications and then became depressed Speech: Is fluid, conversant, normal rate, tone and volume Language skills are intact Thought processes including: linear and goal oriented and coherent Thought content: Decrease in depression and denies anxiety. Denies suicidal/homicidal ideation, planning or intent. Abstract reasoning, and computation: fair Description of associations: denies, none observed Description of abnormal or psychotic thoughts: denies, none observed. Judgment: good Insight: good Orientation: alert and oriented to person, place, time and situation Recent and remote memory: intact Attention span and concentration: good Language: expansive Fund of knowledge: average Mood: Euthymic Mood Affect: reactive DIAGNOSES: 1. Bipolar disorder, most recent episode depressed. 2. Nonadherent to treatment recommendations. 3. Recent resumption of medications. ASSESSMENT: Patient reports feeling "good ." When asked about being observed with evangelical preoccupations patient stated "I was not manic over the weekend, I was talking to someone about taoism and a new that they were looking at me as if I was becoming more manic . " Discussed in length about patient's lithium level being under the minimum threshold, patient denies being manic. States that she feels very stable at this time. Reviewed again possibility of increasing lithium or needing a second mood stabilizer for manic symptoms in the future. Patient is requesting to be discharged tomorrow after SPOA meeting MANAGEMENT PLAN: Patient is continued on current regimen. Discharge tomorrow TIME SPENT: 25 minutes. Vital Signs Vital Signs Date Time Temp Pulse Resp B/P (MAP) Pulse Ox O2 Delivery O2 Flow Rate FiO2 03/25/21 18:46 100.5 79 16 112/77 (89) 03/25/21 06:00 99 03/24/21 07:33 Room Air Current Medications Current Medications Medications (Trade) Dose Ordered Sig/Lynn Route PRN Reason Start Time Stop Time Status Last Admin Dose Admin Acetaminophen (Tylenol Tab) 650 mg Q6HP PRN PO HEADACHE or MILD DISCOMFORT 03/16/21 14:25 Al Hydrox/Mg Hydrox/Simethicone (Mylanta) 30 ml Q4HP PRN PO HEARTBURN/INDIGESTION 03/16/21 14:25 Fluticasone Propionate (Flonase 0.05% Nasal [place]) 1 spray DAILY PRN NARES CONGESTION 03/22/21 15:20 03/26/21 09:54 Fluticasone Propionate (Flonase 0.05% Nasal [place]) 1 spray DAILYPRN PRN NA CONGESTION 03/16/21 16:45 03/22/21 15:16 DC Fluticasone Propionate (Flonase 0.05% Nasal [place]) 2 spray DAILY NARES 03/23/21 09:00 03/22/21 15:19 DC Home Med (Home Med List Complete!) ASDIRECTED XX 03/16/21 09:55 03/16/21 09:56 DC Ibuprofen (Advil) 400 mg DAILY PRN PO MILD/MODERATE PAIN (PS 1-7) 03/16/21 20:30 03/19/21 11:00 DC Ibuprofen (Advil) 400 mg DAILYPRN PRN PO MILD/MODERATE PAIN (PS 1-7) 03/19/21 11:25 03/21/21 15:02 Bolton Carbonate (Lithobid Cr) 300 mg BID PO 03/20/21 21:00 03/26/21 09:55 Bolton Carbonate (Lithobid Cr) 300 mg DAILY PO 03/16/21 09:00 03/16/21 16:48 DC 03/16/21 10:44 [place] Carbonate (Lithobid Cr) 300 mg DAILY PO 03/17/21 09:00 03/20/21 14:31 DC 03/20/21 08:32 Magnesium Hydroxide (Milk Of Magnesia) 30 ml DAILYPRN PRN PO CONSTIPATION 03/16/21 14:25 03/25/21 21:24 Omeprazole (PriLOSEC) 20 mg DAILY PO 03/18/21 09:00 03/26/21 09:55 Sertraline HCl (Zoloft) 50 mg DAILY PO 03/16/21 09:00 Cancel Allergies Coded Allergies: hydrocodone (Verified Allergy, Unknown, 05/01/19) lisdexamfetamine (Verified Adverse Reaction, Unknown, hallucinations, 05/01/19) trazodone (Verified Adverse Reaction, Unknown, "numbness", 05/01/19) UZMA NASH NP Mar 26, 2021 14:40
[2021-03-27 06:21] VITALS: BP 113/65
[2021-03-27] MEDS: LITHIUM CARBONATE 300 MG **CR** TAB PO SCH (07:57)
[2021-03-27] MEDS: OMEPRAZOLE 20 MG CAP PO SCH (07:57)
[2021-03-27] MEDS ORDERED: OMEP-218 PO (11:54)
[2021-03-27] MEDS ORDERED: LITH1TAB PO (11:54)
== END 2021-03-27 13:11 | disposition home or self-care (01) | DRG 885 ==
LOC: M ED 18:13 → M ED INP 03-16 14:24 → M PSY 03-16 18:56
PROVIDERS: ADMIT Student in an Organized Health Care Education/Training Program; ATTEND Psychiatry & Neurology Psychiatry
DX: F31.30 Bipolar disorder, current episode depressed, mild or moderate severity, unspecified (principal); E87.1 Hypo-osmolality and hyponatremia; Z91.19 Patient's noncompliance with other medical treatment and regimen; E87.6 Hypokalemia; D64.9 Anemia, unspecified; Z79.899 Other long term (current) drug therapy; Z88.8 Allergy status to other drugs, medicaments and biological substances; Z88.5 Allergy status to narcotic agent

== ENCOUNTER → 2021-04-12 | Outpatient (REF) | payer MEDICARE ==
[~2021-04-12] MED LIST changes: +LITH1TAB PO; +LITH300T PO
[2021-04-12 16:40] LABS: BLOOD UREA NITROGEN 4 MG/DL (7-18); CALCIUM LEVEL 10.4 MG/DL (8.5-10.1); CARBON DIOXIDE LEVEL 35 MEQ/L (21-32); CHLORIDE LEVEL 99 MEQ/L (98-107); GLOMERULAR FILTRATION RATE > 60.0 (>60); GLUCOSE, FASTING 85 MG/DL (70-100); LITHIUM LEVEL 0.86 MEQ/L (0.60-1.20); POTASSIUM SERUM 3.8 MEQ/L (3.5-5.1); SODIUM LEVEL 137 MEQ/L (136-145)
== END ==
LOC: M SFHCCLAY 10:14
PROVIDERS: ATTEND Family Medicine
DX: F31.70 Bipolar disorder, currently in remission, most recent episode unspecified (principal); E87.1 Hypo-osmolality and hyponatremia; E87.6 Hypokalemia

== ENCOUNTER 2021-04-24 20:39 | Inpatient (IN) | payer MEDICARE, MEDICAID ==
[~2021-04-24] VITALS: Ht 157.5 cm; Wt 52.2 kg
[~2021-04-24 20:39] MED LIST changes: -LATU40TA PO; +LATU40TA2 PO; -MONT10TA10 PO; +MONT10TA97 PO; +OMEP-173 PO; -OMEP-218 PO; +POTA-149 PO; -POTA10TA16 PO
[2021-04-24] MEDS ORDERED: NS 1,000 ML IV ONE (21:25)
[2021-04-24 21:38] LABS: HEMATOCRIT 44.6 % (36.0-47.0); HEMOGLOBIN 16.7 g/dl (12.0-15.5); MEAN CORPUSCULAR VOLUME 82.9 fl (80.0-96.0); PLATELET COUNT, AUTOMATED 444 10^3/uL (150-450); RED BLOOD COUNT 5.38 10^6/uL (4.00-5.40)
[2021-04-24 22:15] LABS: MEAN CORPUSCULAR HGB CONC 37.4 g/dl (32.0-36.5)
[2021-04-24 22:20] LABS: CK-MB VALUE MASS < 1.0 NG/ML (<3.6); CPK CREATINE PHOSPHOKINASE 96 U/L (26-192); MB/CK RELATIVE INDEX 1.04 (< OR =4)
[2021-04-24 22:35] LABS: HCG, SERUM QUALITATIVE NEGATIVE (NEGATIVE)
[2021-04-24 22:45] LABS: RSV AMPLIFICATION NEGATIVE (NEGATIVE)
[2021-04-24 23:02] LABS: ACETAMINOPHEN LEVEL < 2.0 UG/ML (10.0-30.0); ALT/SGPT 17 U/L (12-78); BILIRUBIN,DIRECT 0.3 MG/DL (0.0-0.2); BLOOD UREA NITROGEN 16 MG/DL (7-18); CALCIUM LEVEL 11.2 MG/DL (8.5-10.1); CARBON DIOXIDE LEVEL 40 MEQ/L (21-32); CHLORIDE LEVEL 53 MEQ/L (98-107); CREATININE FOR GFR 1.07 MG/DL (0.55-1.30); ETHYL ALCOHOL (ETHANOL) < 0.003 % (0.000-0.010); GLOMERULAR FILTRATION RATE > 60.0 (>60); GLUCOSE, FASTING 110 MG/DL (70-100); LITHIUM LEVEL 1.04 MEQ/L (0.60-1.20); MAGNESIUM LEVEL 2.3 MG/DL (1.8-2.4); PHOSPHORUS LEVEL 3.1 MG/DL (2.5-4.9); POTASSIUM SERUM 2.3 MEQ/L (3.5-5.1); SALICYLATE LEVEL < 1.7 MG/DL (5.0-30.0); SODIUM LEVEL 114 MEQ/L (136-145); TOTAL PROTEIN 9.1 GM/DL (6.4-8.2)
[2021-04-24] MEDS ORDERED: POTASSIUM CHLORIDE 10% LIQ 20 MEQ/15 ML UDC PO ONE (23:05)
[2021-04-24] MEDS ORDERED: KCL 10MEQ/100ML SWI (KRUN) 10 MEQ in IV 1 EA IV ONE (23:05)
[2021-04-24 23:24] LABS: ABG BASE EXCESS 22.3 (-2.0-2.0); ABG HCO3 48.9 MEQ/L (22.0-26.0); ABG O2 SATURATION 99.1 % (95.0-99.0); ABG PARTIAL PRESSURE CO2 59.3 mmHg (35.0-45.0); ABG PARTIAL PRESSURE O2 169.5 mmHg (75.0-100.0); ABG STANDARD HCO3 47.2 MEQ/L (22.0-26.0); ABG TOTAL CO2 50.7 MEQ/L (22.0-29.0); ABG pH (ARTERIAL) 7.534 UNITS (7.350-7.450)
[2021-04-25] VITALS (7 sets, daily range): BP systolic 82–107; BP diastolic 53–64
[2021-04-25] LABS: AMPHETAMINES LEVEL URINE NEGATIVE (NEGATIVE); BARBITURATES URINE NEGATIVE (NEGATIVE); BENZODIAZEPINES URINE NEGATIVE (NEGATIVE); CANNABINOIDS URINE NEGATIVE (NEGATIVE); COCAINE METABOLITE URINE NEGATIVE (NEGATIVE); METHADONE URINE NEGATIVE (NEGATIVE); OPIATES URINE NEGATIVE (NEGATIVE); PHENCYCLIDINE URINE NEGATIVE (NEGATIVE)
[2021-04-25] MEDS ORDERED: MAG SULF 1GM/100ML (MAG RUN) 1 GM in IV 1 EA IV ONE ×2
[2021-04-25] MEDS ORDERED: OMEP1CAP73 PO (01:35)
[2021-04-25] MEDS ORDERED: HOME MED LIST COMPLETE! XX SCH (01:35)
[2021-04-25] MEDS ORDERED: LITH1TAB PO (01:35)
[2021-04-25 02:04] LABS: OSMOLALITY SERUM 262 MOSM/KG (275-295)
[2021-04-25 02:22] LABS: BLOOD UREA NITROGEN 16 MG/DL (7-18); CALCIUM LEVEL 9.8 MG/DL (8.5-10.1); CARBON DIOXIDE LEVEL 44 MEQ/L (21-32); CHLORIDE LEVEL 62 MEQ/L (98-107); GLOMERULAR FILTRATION RATE > 60.0 (>60); GLUCOSE, FASTING 136 MG/DL (70-100); POTASSIUM SERUM 2.2 MEQ/L (3.5-5.1); SODIUM LEVEL 116 MEQ/L (136-145)
[2021-04-25] MEDS ORDERED: POTASSIUM CHLORIDE 10% LIQ 20 MEQ/15 ML UDC PO ONE ×3 (02:50→04:30)
[2021-04-25] MEDS ORDERED: NS 1,000 ML IV ONE (02:55)
[2021-04-25] MEDS: cefTRIAXone SOD 1 GM in D5W MINI-BAG PLUS 50 ML IV SCH (02:56)
[2021-04-25] MEDS ORDERED: KCL 10MEQ/100ML SWI (KRUN) 10 MEQ in IV 1 EA IV ONE (03:00)
[2021-04-25 03:05] LABS: SODIUM,RANDOM URINE < 10 MEQ/L
[2021-04-25 03:08] LABS: OSMOLALITY URINE 502 MOSM/KG (50-1400)
[2021-04-25 03:09] LABS: URINE PREG TEST NEGATIVE (NEGATIVE)
[2021-04-25] MEDS ORDERED: KCL 10MEQ/100ML SWI (KRUN) SINGLE DOSE IV SCH ×2 (04:00)
[2021-04-25 04:21] LABS: BLOOD UREA NITROGEN 14 MG/DL (7-18); CALCIUM LEVEL 9.6 MG/DL (8.5-10.1); CARBON DIOXIDE LEVEL 44 MEQ/L (21-32); CHLORIDE LEVEL 66 MEQ/L (98-107); CREATININE FOR GFR 0.96 MG/DL (0.55-1.30); GLOMERULAR FILTRATION RATE > 60.0 (>60); GLUCOSE, FASTING 107 MG/DL (70-100); MAGNESIUM LEVEL 2.5 MG/DL (1.8-2.4); POTASSIUM SERUM 2.1 MEQ/L (3.5-5.1); SODIUM LEVEL 119 MEQ/L (136-145)
[2021-04-25 06:49] LABS: BLOOD UREA NITROGEN 14 MG/DL (7-18); CALCIUM LEVEL 10.1 MG/DL (8.5-10.1); CARBON DIOXIDE LEVEL 44 MEQ/L (21-32); CHLORIDE LEVEL 66 MEQ/L (98-107); CREATININE FOR GFR 0.93 MG/DL (0.55-1.30); GLOMERULAR FILTRATION RATE > 60.0 (>60); GLUCOSE, FASTING 112 MG/DL (70-100); POTASSIUM SERUM 2.5 MEQ/L (3.5-5.1); SODIUM LEVEL 119 MEQ/L (136-145)
[2021-04-25] MEDS ORDERED: POTASSIUM CHLORIDE 10MEQ SR TABLET PO ONE (06:50)
[2021-04-25] MEDS ORDERED: KCL 20MEQ IN 0.45NS 1000ML 1,000 ML IV SCH (07:50)
[2021-04-25] MEDS ORDERED: NS 500 ML IV ONE (07:50)
[2021-04-25 11:09] LABS: BLOOD UREA NITROGEN 12 MG/DL (7-18); CALCIUM LEVEL 9.5 MG/DL (8.5-10.1); CARBON DIOXIDE LEVEL 41 MEQ/L (21-32); CHLORIDE LEVEL 70 MEQ/L (98-107); CREATININE FOR GFR 1.07 MG/DL (0.55-1.30); GLOMERULAR FILTRATION RATE > 60.0 (>60); GLUCOSE, FASTING 158 MG/DL (70-100); POTASSIUM SERUM 2.6 MEQ/L (3.5-5.1); SODIUM LEVEL 118 MEQ/L (136-145)
[2021-04-25 13:51] LABS: BLOOD UREA NITROGEN 13 MG/DL (7-18); CALCIUM LEVEL 9.4 MG/DL (8.5-10.1); CARBON DIOXIDE LEVEL 42 MEQ/L (21-32); CHLORIDE LEVEL 72 MEQ/L (98-107); CREATININE FOR GFR 0.81 MG/DL (0.55-1.30); GLOMERULAR FILTRATION RATE > 60.0 (>60); GLUCOSE, FASTING 79 MG/DL (70-100); POTASSIUM SERUM 2.8 MEQ/L (3.5-5.1); SODIUM LEVEL 119 MEQ/L (136-145)
[2021-04-25 18:15] LABS: BLOOD UREA NITROGEN 13 MG/DL (7-18); CALCIUM LEVEL 9.2 MG/DL (8.5-10.1); CARBON DIOXIDE LEVEL 41 MEQ/L (21-32); CHLORIDE LEVEL 79 MEQ/L (98-107); CREATININE FOR GFR 0.79 MG/DL (0.55-1.30); GLOMERULAR FILTRATION RATE > 60.0 (>60); GLUCOSE, FASTING 100 MG/DL (70-100); SODIUM LEVEL 125 MEQ/L (136-145)
[2021-04-25] MEDS: KCL 20MEQ IN 0.45NS 1000ML 1,000 ML IV SCH (19:36)
[2021-04-25] MEDS ORDERED: SODIUM CHLORIDE 1 GM TAB PO SCH (21:00)
[2021-04-26] VITALS: BP 90/58
[2021-04-26 00:37] LABS: BLOOD UREA NITROGEN 15 MG/DL (7-18); CARBON DIOXIDE LEVEL 37 MEQ/L (21-32); CHLORIDE LEVEL 89 MEQ/L (98-107); CREATININE FOR GFR 0.93 MG/DL (0.55-1.30); GLOMERULAR FILTRATION RATE > 60.0 (>60); GLUCOSE, FASTING 81 MG/DL (70-100); POTASSIUM SERUM 3.1 MEQ/L (3.5-5.1); SODIUM LEVEL 128 MEQ/L (136-145)
[2021-04-26] MEDS: cefTRIAXone SOD 1 GM in D5W MINI-BAG PLUS 50 ML IV SCH (02:16)
[2021-04-26 03:47] LABS: BLOOD UREA NITROGEN 13 MG/DL (7-18); CALCIUM LEVEL 8.7 MG/DL (8.5-10.1); CARBON DIOXIDE LEVEL 39 MEQ/L (21-32); CHLORIDE LEVEL 91 MEQ/L (98-107); CREATININE FOR GFR 0.82 MG/DL (0.55-1.30); GLOMERULAR FILTRATION RATE > 60.0 (>60); GLUCOSE, FASTING 99 MG/DL (70-100); POTASSIUM SERUM 2.8 MEQ/L (3.5-5.1); SODIUM LEVEL 133 MEQ/L (136-145)
[2021-04-26] MEDS ORDERED: POTASSIUM CHLORIDE 10% LIQ 20 MEQ/15 ML UDC PO ONE (03:55)
[2021-04-26 04:00] VITALS: BP 92/56
[2021-04-26] MEDS: KCL 20MEQ IN 0.45NS 1000ML 1,000 ML IV SCH (04:10)
[2021-04-26] MEDS ORDERED: POTASSIUM CHLORIDE 10MEQ SR TABLET PO ONE (06:05)
[2021-04-26 06:15] LABS: BASO # 0.1 10^3/uL (0.0-0.2); BASO % 0.6 % (0.0-1.0); EOS # 0.2 10^3/uL (0.0-0.5); HEMATOCRIT 34.2 % (36.0-47.0); HEMOGLOBIN 11.1 g/dl (12.0-15.5); LYMPH # 3.1 10^3/uL (1.5-5.0); LYMPH % 35.6 % (24.0-44.0); MEAN CORPUSCULAR HGB CONC 32.5 g/dl (32.0-36.5); MEAN CORPUSCULAR VOLUME 95.5 fl (80.0-96.0); MONO # 0.8 10^3/uL (0.0-0.8); MONO % 9.3 % (2.0-8.0); NEUTROPHILS # 4.5 10^3/uL (1.5-8.5); NEUTROPHILS % 52.4 % (36.0-66.0); PLATELET COUNT, AUTOMATED 314 10^3/uL (150-450); RED BLOOD COUNT 3.58 10^6/uL (4.00-5.40); WHITE BLOOD COUNT 8.6 10^3/uL (4.0-10.0)
[2021-04-26 06:48] LABS: ALBUMIN 2.8 GM/DL (3.2-5.2); ALT/SGPT 13 U/L (12-78); BILIRUBIN,TOTAL 0.3 MG/DL (0.2-1.0); BLOOD UREA NITROGEN 11 MG/DL (7-18); CALCIUM LEVEL 8.9 MG/DL (8.5-10.1); CARBON DIOXIDE LEVEL 34 MEQ/L (21-32); CHLORIDE LEVEL 96 MEQ/L (98-107); GLOMERULAR FILTRATION RATE > 60.0 (>60); GLUCOSE, FASTING 83 MG/DL (70-100); PHOSPHORUS LEVEL 0.6 MG/DL (2.5-4.9); SODIUM LEVEL 135 MEQ/L (136-145); TOTAL PROTEIN 6.3 GM/DL (6.4-8.2)
[2021-04-26 08:00] VITALS: BP 89/58
[2021-04-26 10:00] VITALS: BP 100/57
[2021-04-26 12:00] VITALS: BP 91/55
[2021-04-26 12:52] LABS: BLOOD UREA NITROGEN 9 MG/DL (7-18); CALCIUM LEVEL 9.3 MG/DL (8.5-10.1); CARBON DIOXIDE LEVEL 35 MEQ/L (21-32); CHLORIDE LEVEL 95 MEQ/L (98-107); GLOMERULAR FILTRATION RATE > 60.0 (>60); GLUCOSE, FASTING 64 MG/DL (70-100); POTASSIUM SERUM 4.1 MEQ/L (3.5-5.1); SODIUM LEVEL 136 MEQ/L (136-145)
[2021-04-26] MEDS: LITHIUM CARBONATE 300 MG **CR** TAB PO SCH ×2 (14:35→21:17)
[2021-04-26] MEDS: DOCUSATE SODIUM 100MG CAPSULE PO PRN ×2 (14:35→21:18)
[2021-04-26 16:00] VITALS: BP_SYST 90; BP_SYST 91; BP_DIAS 55; BP_DIAS 60
[2021-04-26 18:19] LABS: BLOOD UREA NITROGEN 10 MG/DL (7-18); CALCIUM LEVEL 9.4 MG/DL (8.5-10.1); CARBON DIOXIDE LEVEL 37 MEQ/L (21-32); CHLORIDE LEVEL 95 MEQ/L (98-107); CREATININE FOR GFR 0.76 MG/DL (0.55-1.30); GLOMERULAR FILTRATION RATE > 60.0 (>60); GLUCOSE, FASTING 89 MG/DL (70-100); POTASSIUM SERUM 3.8 MEQ/L (3.5-5.1); SODIUM LEVEL 135 MEQ/L (136-145)
[2021-04-26] MEDS ORDERED: LITHIUM CARBONATE 300 MG **CR** TAB PO SCH (21:00)
[2021-04-27 00:12] LABS: BLOOD UREA NITROGEN 9 MG/DL (7-18); CALCIUM LEVEL 7.9 MG/DL (8.5-10.1); CARBON DIOXIDE LEVEL 34 MEQ/L (21-32); CHLORIDE LEVEL 100 MEQ/L (98-107); CREATININE FOR GFR 0.73 MG/DL (0.55-1.30); GLOMERULAR FILTRATION RATE > 60.0 (>60); GLUCOSE, FASTING 95 MG/DL (70-100); POTASSIUM SERUM 3.5 MEQ/L (3.5-5.1); SODIUM LEVEL 135 MEQ/L (136-145)
[2021-04-27 06:00] VITALS: BP 90/60
[2021-04-27 06:51] LABS: BLOOD UREA NITROGEN 7 MG/DL (7-18); CALCIUM LEVEL 8.7 MG/DL (8.5-10.1); CARBON DIOXIDE LEVEL 33 MEQ/L (21-32); CHLORIDE LEVEL 103 MEQ/L (98-107); CREATININE FOR GFR 0.77 MG/DL (0.55-1.30); GLOMERULAR FILTRATION RATE > 60.0 (>60); GLUCOSE, FASTING 88 MG/DL (70-100); SODIUM LEVEL 141 MEQ/L (136-145)
[2021-04-27] MEDS: LITHIUM CARBONATE 300 MG **CR** TAB PO SCH ×2 (09:48→22:02)
[2021-04-27 14:00] VITALS: BP 86/55
[2021-04-28 06:05] VITALS: BP 84/58
[2021-04-28] MEDS: LITHIUM CARBONATE 300 MG **CR** TAB PO SCH ×2 (09:34→20:39)
[2021-04-28 16:00] VITALS: BP 90/48
[2021-04-28] MEDS: DOCUSATE SODIUM 100MG CAPSULE PO PRN (20:40)
[2021-04-28 22:00] VITALS: BP 88/45
[2021-04-29 06:00] VITALS: BP 90/46
[2021-04-29] MEDS: LITHIUM CARBONATE 300 MG **CR** TAB PO SCH ×2 (09:06→21:52)
[2021-04-29] MEDS: DOCUSATE SODIUM 100MG CAPSULE PO PRN (09:08)
[2021-04-29 14:00] VITALS: BP 80/47
[2021-04-29 20:00] VITALS: BP 97/60
[2021-04-30 06:00] VITALS: BP 82/49
[2021-04-30] MEDS: LITHIUM CARBONATE 300 MG **CR** TAB PO SCH (08:04)
== END 2021-04-30 15:09 | disposition home or self-care (01) | DRG 641 ==
LOC: M ED 20:39 → M ED INP 04-25 00:45 → M PCU 04-25 03:24 → M MSPAV 04-26 16:30
PROVIDERS: ADMIT Internal Medicine; ATTEND Family Medicine
DX: E87.1 Hypo-osmolality and hyponatremia (principal); F31.89 Other bipolar disorder; F50.2 Bulimia nervosa; R53.1 Weakness; E86.1 Hypovolemia; E87.3 Alkalosis; Z91.51 Personal history of suicidal behavior; Z79.899 Other long term (current) drug therapy; Z88.5 Allergy status to narcotic agent; Z88.8 Allergy status to other drugs, medicaments and biological substances; E87.6 Hypokalemia; D72.829 Elevated white blood cell count, unspecified; Z20.822 Contact with and (suspected) exposure to COVID-19

== ENCOUNTER → 2021-05-16 | Outpatient (REF) | payer MEDICARE, MEDICAID ==
[~2021-05-16] MED LIST changes: +LATU40TA PO; -LATU40TA2 PO; -OMEP-173 PO; +OMEP-218 PO
[2021-05-16 17:12] LABS: BLOOD UREA NITROGEN 8 MG/DL (7-18); CALCIUM LEVEL 9.7 MG/DL (8.5-10.1); CARBON DIOXIDE LEVEL 39 MEQ/L (21-32); CHLORIDE LEVEL 94 MEQ/L (98-107); CREATININE FOR GFR 0.89 MG/DL (0.55-1.30); GLOMERULAR FILTRATION RATE > 60.0 (>60); GLUCOSE, FASTING 80 MG/DL (70-100); LITHIUM LEVEL 0.47 MEQ/L (0.60-1.20); POTASSIUM SERUM 3.5 MEQ/L (3.5-5.1); SODIUM LEVEL 138 MEQ/L (136-145)
== END ==
LOC: M SFHCCLAY 10:48
PROVIDERS: ATTEND Family Medicine
DX: E87.1 Hypo-osmolality and hyponatremia (principal); F31.70 Bipolar disorder, currently in remission, most recent episode unspecified; Z20.9 Contact with and (suspected) exposure to unspecified communicable disease
CPT/HCPCS: 80048; 80178; 87426; G0463

== ENCOUNTER → 2021-11-02 | Outpatient (REF) | payer MEDICARE, MEDICAID ==
[~2021-11-02] MED LIST changes: -LATU40TA PO; +LATU40TA2 PO; +OMEP-173 PO; -OMEP-218 PO
[2021-11-02 16:47] LABS: HEMATOCRIT 37.2 % (36.0-47.0); HEMOGLOBIN 11.7 g/dl (12.0-15.5); MEAN CORPUSCULAR HEMOGLOBIN 29.5 pg (27.0-33.0); MEAN CORPUSCULAR HGB CONC 31.5 g/dl (32.0-36.5); MEAN CORPUSCULAR VOLUME 93.9 fl (80.0-96.0); PLATELET COUNT, AUTOMATED 330 10^3/uL (150-450); RED BLOOD COUNT 3.96 10^6/uL (4.00-5.40); WHITE BLOOD COUNT 7.6 10^3/uL (4.0-10.0)
[2021-11-02 18:14] LABS: ALT/SGPT 14 U/L (12-78); BILIRUBIN,TOTAL 0.4 MG/DL (0.2-1.0); BLOOD UREA NITROGEN 5 MG/DL (7-18); CALCIUM LEVEL 9.8 MG/DL (8.5-10.1); CARBON DIOXIDE LEVEL 29 MEQ/L (21-32); CHLORIDE LEVEL 108 MEQ/L (98-107); CREATININE FOR GFR 0.91 MG/DL (0.55-1.30); GLOMERULAR FILTRATION RATE > 60.0 (>60); GLUCOSE, FASTING 80 MG/DL (70-100); LITHIUM LEVEL 0.59 MEQ/L (0.60-1.20); POTASSIUM SERUM 4.5 MEQ/L (3.5-5.1); SODIUM LEVEL 141 MEQ/L (136-145); TOTAL PROTEIN 7.3 GM/DL (6.4-8.2)
== END ==
LOC: M SFHCCLAY 11:32
PROVIDERS: ATTEND Family Medicine
DX: K21.9 Gastro-esophageal reflux disease without esophagitis (principal); F31.70 Bipolar disorder, currently in remission, most recent episode unspecified; F50.2 Bulimia nervosa

== ENCOUNTER 2021-11-22 18:17 | Inpatient (IN) | payer MEDICARE, MEDICAID ==
[~2021-11-22] VITALS: Ht 157.5 cm; Wt 57.6 kg
[2021-11-22 19:18] LABS: AMPHETAMINES LEVEL URINE NEGATIVE (NEGATIVE); BARBITURATES URINE NEGATIVE (NEGATIVE); BENZODIAZEPINES URINE NEGATIVE (NEGATIVE); CANNABINOIDS URINE NEGATIVE (NEGATIVE); COCAINE METABOLITE URINE NEGATIVE (NEGATIVE); METHADONE URINE NEGATIVE (NEGATIVE); OPIATES URINE NEGATIVE (NEGATIVE); PHENCYCLIDINE URINE NEGATIVE (NEGATIVE)
[2021-11-22 19:22] LABS: HEMATOCRIT 36.4 % (36.0-47.0); HEMOGLOBIN 11.9 g/dl (12.0-15.5); MEAN CORPUSCULAR HEMOGLOBIN 30.3 pg (27.0-33.0); MEAN CORPUSCULAR HGB CONC 32.7 g/dl (32.0-36.5); MEAN CORPUSCULAR VOLUME 92.6 fl (80.0-96.0); PLATELET COUNT, AUTOMATED 452 10^3/uL (150-450); RED BLOOD COUNT 3.93 10^6/uL (4.00-5.40); WHITE BLOOD COUNT 11.8 10^3/uL (4.0-10.0)
[2021-11-22] MEDS ORDERED: LORazepam 2 MG TAB PO STA (19:23)
[2021-11-22 19:54] LABS: ALBUMIN 4.4 GM/DL (3.2-5.2); ALT/SGPT 54 U/L (12-78); BILIRUBIN,DIRECT 0.1 MG/DL (0.0-0.2); BILIRUBIN,TOTAL 0.3 MG/DL (0.2-1.0); BLOOD UREA NITROGEN 11 MG/DL (7-18); CARBON DIOXIDE LEVEL 27 MEQ/L (21-32); CHLORIDE LEVEL 108 MEQ/L (98-107); CREATININE FOR GFR 0.96 MG/DL (0.55-1.30); ETHYL ALCOHOL (ETHANOL) < 0.003 % (0.000-0.010); GLOMERULAR FILTRATION RATE > 60.0 (>60); GLUCOSE, FASTING 112 MG/DL (70-100); POTASSIUM SERUM 3.3 MEQ/L (3.5-5.1); SALICYLATE LEVEL < 1.7 MG/DL (5.0-30.0); SODIUM LEVEL 140 MEQ/L (136-145)
[2021-11-22 19:56] LABS: RSV AMPLIFICATION NEGATIVE (NEGATIVE)
[2021-11-22 20:15] LABS: HCG, SERUM QUALITATIVE NEGATIVE (NEGATIVE)
[2021-11-22] MEDS ORDERED: POTASSIUM CHLORIDE 10MEQ SR TABLET PO ONE (20:20)
[2021-11-22] MEDS ORDERED: POTASSIUM CHLORIDE 10% LIQ 20 MEQ/15 ML UDC PO ONE (20:25)
[2021-11-22] MEDS ORDERED: LORazepam 2 MG/ML VIAL IM ONE (21:10)
[2021-11-22] MEDS ORDERED: HALOPERIDOL 5MG/ML VIAL (J1630 PER 1) IM ONE (21:10)
[2021-11-22 21:24] LABS: ACETAMINOPHEN LEVEL < 2.0 UG/ML (10.0-30.0)
[2021-11-22] MEDS ORDERED: MOM 30ML SUSPENSION UDC PO PRN (23:55)
[2021-11-22] MEDS ORDERED: OLANZapine ORAL DISINTEGRATING TAB 5MG PO PRN (23:55)
[2021-11-22] MEDS ORDERED: ACETAMINOPHEN TAB 650MG DOSE (2X325MG) PO PRN (23:55)
[2021-11-23 01:25] VITALS: BP 120/84
[2021-11-23] MEDS ORDERED: LITHIUM CARBONATE 300 MG **CR** TAB PO SCH (09:00)
[2021-11-23] MEDS ORDERED: TRANYLCYPROMINE 10 MG PO SCH (09:00)
[2021-11-23] MEDS: OMEPRAZOLE 20MG CAP PO SCH (09:00)
[2021-11-23 09:39] LABS: HEMOGLOBIN A1c 4.8 %
[2021-11-23] MEDS ORDERED: HOME MED LIST COMPLETE! XX SCH (11:40)
[2021-11-23] MEDS: lamoTRIgine 25MG TAB PO SCH (13:20)
[2021-11-23 16:53] VITALS: BP 132/84
[2021-11-23] MEDS: LITHIUM CARBONATE 300 MG **CR** TAB PO SCH (20:42)
[2021-11-23] MEDS: IBUPROFEN 400MG TAB PO PRN (22:21)
[2021-11-24 06:14] VITALS: BP 134/79
[2021-11-24 07:04] LABS: CHOLESTEROL RISK RATIO 2.584 (<5)
[2021-11-24] MEDS: OMEPRAZOLE 20MG CAP PO SCH (08:18)
[2021-11-24] MEDS: lamoTRIgine 25MG TAB PO SCH (08:18)
[2021-11-24] MEDS: IBUPROFEN 400MG TAB PO PRN (08:19)
[2021-11-24 16:56] VITALS: BP 133/74
[2021-11-24] MEDS: LITHIUM CARBONATE 300 MG **CR** TAB PO SCH (20:52)
[2021-11-25] MEDS: IBUPROFEN 400MG TAB PO PRN ×2 (04:23→21:11)
[2021-11-25 06:26] VITALS: BP 119/79
[2021-11-25] MEDS: OMEPRAZOLE 20MG CAP PO SCH (08:04)
[2021-11-25] MEDS: lamoTRIgine 25MG TAB PO SCH (08:05)
[2021-11-25 16:16] VITALS: BP 120/72
[2021-11-25] MEDS: LITHIUM CARBONATE 300 MG **CR** TAB PO SCH (21:10)
[2021-11-26] MEDS: MAALOX 30 ML SUSP *UDC PO PRN (01:50)
[2021-11-26 07:17] VITALS: BP 138/96
[2021-11-26] MEDS: OMEPRAZOLE 20MG CAP PO SCH (08:05)
[2021-11-26] MEDS: lamoTRIgine 25MG TAB PO SCH (08:05)
[2021-11-26] MEDS: LITHIUM CARBONATE 150 MG CAP PO SCH (13:17)
[2021-11-26 18:00] VITALS: BP 133/82
[2021-11-26] MEDS: LITHIUM CARBONATE 300 MG **CR** TAB PO SCH (21:11)
[2021-11-26] MEDS: IBUPROFEN 400MG TAB PO PRN (21:12)
[2021-11-27] MEDS: MAALOX 30 ML SUSP *UDC PO PRN ×2 (00:05→23:11)
[2021-11-27 06:00] VITALS: BP 124/82
[2021-11-27] MEDS: lamoTRIgine 25MG TAB PO SCH (08:50)
[2021-11-27] MEDS: LITHIUM CARBONATE 150 MG CAP PO SCH (08:50)
[2021-11-27] MEDS: OMEPRAZOLE 20MG CAP PO SCH (08:50)
[2021-11-27] MEDS ORDERED: LITHIUM CARBONATE 150 MG CAP PO ONE (09:35)
[2021-11-27] MEDS: IBUPROFEN 400MG TAB PO PRN ×2 (15:08→23:11)
[2021-11-27 19:04] VITALS: BP 138/87
[2021-11-27] MEDS: LITHIUM CARBONATE 300 MG **CR** TAB PO SCH (20:20)
[2021-11-28 06:00] VITALS: BP 132/80
[2021-11-28] MEDS: lamoTRIgine 25MG TAB PO SCH (08:23)
[2021-11-28] MEDS: LITHIUM CARBONATE 300 MG **CR** TAB PO SCH (08:23)
[2021-11-28] MEDS: OMEPRAZOLE 20MG CAP PO SCH (08:23)
[2021-11-28] MEDS ORDERED: OMEP-173 PO (10:26)
[2021-11-28] MEDS ORDERED: LITH1TAB PO (10:26)
[2021-11-28] MEDS ORDERED: LAMI25TA PO (10:26)
== END 2021-11-28 13:47 | disposition home or self-care (01) | DRG 885 ==
LOC: M ED 18:17 → M ED INP 23:54 → M PSY 11-23 01:06
PROVIDERS: ADMIT Psychiatry & Neurology Psychiatry; ATTEND Student in an Organized Health Care Education/Training Program
DX: F31.2 Bipolar disorder, current episode manic severe with psychotic features (principal); F43.10 Post-traumatic stress disorder, unspecified; F17.200 Nicotine dependence, unspecified, uncomplicated; Z59.00 Homelessness unspecified; F60.89 Other specific personality disorders; Z88.8 Allergy status to other drugs, medicaments and biological substances; Z88.5 Allergy status to narcotic agent; Z91.14 Patient's other noncompliance with medication regimen; E87.6 Hypokalemia

== ENCOUNTER 2021-12-05 14:19 | Inpatient (IN) | payer MEDICARE, MEDICAID ==
[~2021-12-05] VITALS: Ht 162.6 cm; Wt 61.8 kg
[2021-12-05 15:24] LABS: AMPHETAMINES LEVEL URINE NEGATIVE (NEGATIVE); BARBITURATES URINE NEGATIVE (NEGATIVE); BENZODIAZEPINES URINE NEGATIVE (NEGATIVE); CANNABINOIDS URINE NEGATIVE (NEGATIVE); COCAINE METABOLITE URINE NEGATIVE (NEGATIVE); METHADONE URINE NEGATIVE (NEGATIVE); OPIATES URINE NEGATIVE (NEGATIVE); PHENCYCLIDINE URINE NEGATIVE (NEGATIVE)
[2021-12-05] MEDS ORDERED: OLANZapine INTRAMUSCULAR 10MG VIAL IM ONE (16:00)
[2021-12-05] MEDS ORDERED: LORazepam 2 MG/ML VIAL IM ONE ×2 (16:00→19:50)
[2021-12-05 16:58] LABS: HEMATOCRIT 35.8 % (36.0-47.0); HEMOGLOBIN 11.4 g/dl (12.0-15.5); MEAN CORPUSCULAR HEMOGLOBIN 30.3 pg (27.0-33.0); MEAN CORPUSCULAR HGB CONC 31.8 g/dl (32.0-36.5); MEAN CORPUSCULAR VOLUME 95.2 fl (80.0-96.0); PLATELET COUNT, AUTOMATED 493 10^3/uL (150-450); RED BLOOD COUNT 3.76 10^6/uL (4.00-5.40); WHITE BLOOD COUNT 17.5 10^3/uL (4.0-10.0)
[2021-12-05 17:19] LABS: HCG, SERUM QUALITATIVE NEGATIVE (NEGATIVE)
[2021-12-05 17:25] LABS: ACETAMINOPHEN LEVEL < 2.0 UG/ML (10.0-30.0); ALBUMIN 3.9 GM/DL (3.2-5.2); ALT/SGPT 31 U/L (12-78); BILIRUBIN,DIRECT < 0.1 MG/DL (0.0-0.2); BILIRUBIN,TOTAL 0.2 MG/DL (0.2-1.0); BLOOD UREA NITROGEN 11 MG/DL (7-18); CALCIUM LEVEL 9.9 MG/DL (8.5-10.1); CARBON DIOXIDE LEVEL 28 MEQ/L (21-32); CHLORIDE LEVEL 106 MEQ/L (98-107); ETHYL ALCOHOL (ETHANOL) < 0.003 % (0.000-0.010); GLOMERULAR FILTRATION RATE > 60.0 (>60); GLUCOSE, FASTING 122 MG/DL (70-100); LITHIUM LEVEL < 0.20 MEQ/L (0.60-1.20); POTASSIUM SERUM 4.5 MEQ/L (3.5-5.1); SALICYLATE LEVEL < 1.7 MG/DL (5.0-30.0); SODIUM LEVEL 140 MEQ/L (136-145)
[2021-12-05 17:32] LABS: RSV AMPLIFICATION NEGATIVE (NEGATIVE)
[2021-12-05] MEDS ORDERED: HALOPERIDOL 5MG/ML VIAL (J1630 PER 1) IM ONE (19:50)
[2021-12-05] MEDS ORDERED: diphenhydrAMINE 50MG/ML VIAL (J1200) IM ONE (19:50)
[2021-12-06] MEDS ORDERED: LITHIUM CARBONATE 300 MG **CR** TAB PO SCH (09:00)
[2021-12-06] MEDS ORDERED: lamoTRIgine 25MG TAB PO SCH (09:00)
[2021-12-06] MEDS: OMEPRAZOLE 20MG CAP PO SCH (10:36)
[2021-12-06] MEDS ORDERED: OLANZapine ORAL DISINTEGRATING TAB 5MG PO ONE (13:25)
[2021-12-06] MEDS ORDERED: ACETAMINOPHEN TAB 650MG DOSE (2X325MG) PO PRN (17:25)
[2021-12-06] MEDS ORDERED: OLANZapine ORAL DISINTEGRATING TAB 5MG PO PRN (17:25)
[2021-12-06] MEDS ORDERED: MOM 30ML SUSPENSION UDC PO PRN (17:25)
[2021-12-06] MEDS ORDERED: LAMO25TA4 PO (17:45)
[2021-12-06] MEDS ORDERED: OMEP-173 PO (17:45)
[2021-12-06] MEDS ORDERED: ERYT5OIN25 TOP (17:45)
[2021-12-06] MEDS ORDERED: LITH45TASA PO (17:45)
[2021-12-06] MEDS ORDERED: PATIENT COMMENT (17:46)
[2021-12-06] MEDS ORDERED: HOME MED LIST COMPLETE! XX SCH (17:50)
[2021-12-06] MEDS ORDERED: LITH1TAB PO (17:54)
[2021-12-06 18:24] VITALS: BP 143/84
[2021-12-06] MEDS: LITHIUM CARBONATE 300 MG **CR** TAB PO SCH (20:57)
[2021-12-06] MEDS: QUEtiapine FUMARATE 50MG TAB PO SCH (20:58)
[2021-12-06] MEDS ORDERED: LITHIUM CARBONATE 300 MG CAP PO SCH (21:00)
[2021-12-06] MEDS: IBUPROFEN 600MG TAB PO PRN (23:08)
[2021-12-07 06:47] VITALS: BP 130/84
[2021-12-07] MEDS: OMEPRAZOLE 20MG CAP PO SCH (08:15)
[2021-12-07] MEDS: LITHIUM CARBONATE 300 MG **CR** TAB PO SCH ×2 (08:16→20:20)
[2021-12-07] MEDS ORDERED: LORazepam 2 MG TAB PO PRN (08:45)
[2021-12-07] MEDS ORDERED: lamoTRIgine 25MG TAB PO SCH (09:00)
[2021-12-07] MEDS: NICOTINE 14 MG/24 HR TRANSDERMAL TD SCH (13:00)
[2021-12-07] MEDS: IBUPROFEN 600MG TAB PO PRN (16:38)
[2021-12-07] MEDS: QUEtiapine FUMARATE 50MG TAB PO SCH (20:20)
[2021-12-07] MEDS ORDERED: risperiDONE 2 MG TAB PO PRN (22:35)
[2021-12-08] MEDS: QUEtiapine FUMARATE 50MG TAB PO SCH ×2 (00:09→22:28)
[2021-12-08 06:00] VITALS: BP 132/85
[2021-12-08] MEDS: IBUPROFEN 600MG TAB PO PRN ×2 (06:19→17:18)
[2021-12-08] MEDS: OMEPRAZOLE 20MG CAP PO SCH (08:04)
[2021-12-08] MEDS: NICOTINE 14 MG/24 HR TRANSDERMAL TD SCH (08:04)
[2021-12-08] MEDS: lamoTRIgine 25MG TAB PO SCH (08:04)
[2021-12-08] MEDS: LITHIUM CARBONATE 300 MG **CR** TAB PO SCH ×2 (08:05→21:00)
[2021-12-08] MEDS: LORATADINE 10 MG TAB PO SCH (13:33)
[2021-12-08] MEDS: FLUTICASONE PROP 0.05% NASAL SPRAY 16 GM (FLONASE) NARES SCH ×2 (13:34→22:26)
[2021-12-08 17:09] VITALS: BP 141/95
[2021-12-08] MEDS: PRAZOSIN 1 MG CAP PO SCH (22:27)
[2021-12-09 06:40] VITALS: BP 105/58
[2021-12-09] MEDS: LORATADINE 10 MG TAB PO SCH (08:25)
[2021-12-09] MEDS: FLUTICASONE PROP 0.05% NASAL SPRAY 16 GM (FLONASE) NARES SCH ×2 (08:25→22:03)
[2021-12-09] MEDS: OMEPRAZOLE 20MG CAP PO SCH (08:25)
[2021-12-09] MEDS: lamoTRIgine 25MG TAB PO SCH (08:25)
[2021-12-09] MEDS: LITHIUM CARBONATE 300 MG **CR** TAB PO SCH ×2 (08:25→21:00)
[2021-12-09] MEDS: IBUPROFEN 600MG TAB PO PRN ×2 (08:26→16:54)
[2021-12-09] MEDS: NICOTINE 14 MG/24 HR TRANSDERMAL TD SCH (08:26)
[2021-12-09] MEDS: MAALOX 30 ML SUSP *UDC PO PRN (16:54)
[2021-12-09 17:25] VITALS: BP 142/87
[2021-12-09] MEDS: PRAZOSIN 1 MG CAP PO SCH (22:04)
[2021-12-09] MEDS: QUEtiapine FUMARATE 50MG TAB PO SCH (22:04)
[2021-12-09] MEDS: CEPACOL LOZENGE PO PRN (22:06)
[2021-12-10] MEDS: IBUPROFEN 600MG TAB PO PRN ×3 (01:55→20:19)
[2021-12-10] MEDS: CEPACOL LOZENGE PO PRN ×3 (05:57→20:17)
[2021-12-10 06:00] VITALS: BP 126/87
[2021-12-10] MEDS: FLUTICASONE PROP 0.05% NASAL SPRAY 16 GM (FLONASE) NARES SCH ×2 (08:34→20:20)
[2021-12-10] MEDS: NICOTINE 14 MG/24 HR TRANSDERMAL TD SCH (08:35)
[2021-12-10] MEDS: LORATADINE 10 MG TAB PO SCH (08:35)
[2021-12-10] MEDS: OMEPRAZOLE 20MG CAP PO SCH (08:36)
[2021-12-10] MEDS: LITHIUM CARBONATE 300 MG **CR** TAB PO SCH ×2 (08:36→21:00)
[2021-12-10] MEDS: lamoTRIgine 25MG TAB PO SCH (08:36)
[2021-12-10] MEDS: MAALOX 30 ML SUSP *UDC PO PRN (09:56)
[2021-12-10 18:13] VITALS: BP 139/91
[2021-12-10] MEDS: PRAZOSIN 1 MG CAP PO SCH (22:16)
[2021-12-10] MEDS: QUEtiapine FUMARATE 50MG TAB PO SCH (22:16)
[2021-12-11] MEDS: CEPACOL LOZENGE PO PRN ×4 (02:01→23:09)
[2021-12-11 06:32] VITALS: BP 145/77
[2021-12-11] MEDS: LITHIUM CARBONATE 300 MG **CR** TAB PO SCH ×2 (09:00→21:00)
[2021-12-11] MEDS: FLUTICASONE PROP 0.05% NASAL SPRAY 16 GM (FLONASE) NARES SCH ×2 (09:04→21:03)
[2021-12-11] MEDS: NICOTINE 14 MG/24 HR TRANSDERMAL TD SCH (09:05)
[2021-12-11] MEDS: LORATADINE 10 MG TAB PO SCH (09:05)
[2021-12-11] MEDS: OMEPRAZOLE 20MG CAP PO SCH (09:06)
[2021-12-11] MEDS: lamoTRIgine 25MG TAB PO SCH (09:06)
[2021-12-11] MEDS: IBUPROFEN 600MG TAB PO PRN ×2 (09:09→17:43)
[2021-12-11] MEDS: MAALOX 30 ML SUSP *UDC PO PRN (11:06)
[2021-12-11 18:07] VITALS: BP 151/88
[2021-12-11] MEDS: PALIPERIDONE 3 MG ER TAB (INVEGA) PO SCH ×2 (21:00→23:43)
[2021-12-11] MEDS: PRAZOSIN 1 MG CAP PO SCH ×2 (21:00→23:09)
[2021-12-11] MEDS: QUEtiapine FUMARATE 50MG TAB PO SCH ×2 (21:00→23:08)
[2021-12-12] MEDS: IBUPROFEN 600MG TAB PO PRN ×2 (07:28→15:29)
[2021-12-12] MEDS: CEPACOL LOZENGE PO PRN ×3 (07:28→20:00)
[2021-12-12] MEDS: lamoTRIgine 25MG TAB PO SCH (08:23)
[2021-12-12] MEDS: FLUTICASONE PROP 0.05% NASAL SPRAY 16 GM (FLONASE) NARES SCH ×2 (08:23→20:00)
[2021-12-12] MEDS: LORATADINE 10 MG TAB PO SCH (08:23)
[2021-12-12] MEDS: NICOTINE 14 MG/24 HR TRANSDERMAL TD SCH (08:24)
[2021-12-12] MEDS: OMEPRAZOLE 20MG CAP PO SCH (08:24)
[2021-12-12] MEDS: LITHIUM CARBONATE 300 MG **CR** TAB PO SCH (08:26)
[2021-12-12] MEDS: QUEtiapine FUMARATE 50MG TAB PO SCH (19:59)
[2021-12-12] MEDS: PRAZOSIN 1 MG CAP PO SCH (20:00)
[2021-12-12] MEDS ORDERED: PALIPERIDONE 3 MG ER TAB (INVEGA) PO SCH (21:00)
[2021-12-13] MEDS: CEPACOL LOZENGE PO PRN ×3 (06:46→20:12)
[2021-12-13] MEDS: IBUPROFEN 600MG TAB PO PRN ×2 (06:47→15:00)
[2021-12-13 06:48] VITALS: BP 121/94
[2021-12-13] MEDS: LORATADINE 10 MG TAB PO SCH (08:36)
[2021-12-13] MEDS: FLUTICASONE PROP 0.05% NASAL SPRAY 16 GM (FLONASE) NARES SCH ×2 (08:36→20:12)
[2021-12-13] MEDS: lamoTRIgine 25MG TAB PO SCH (08:37)
[2021-12-13] MEDS: NICOTINE 14 MG/24 HR TRANSDERMAL TD SCH (08:38)
[2021-12-13] MEDS: OMEPRAZOLE 20MG CAP PO SCH (08:38)
[2021-12-13] MEDS: PRAZOSIN 1 MG CAP PO SCH (20:13)
[2021-12-14 06:44] VITALS: BP 141/83
[2021-12-14] MEDS: IBUPROFEN 600MG TAB PO PRN ×2 (06:51→16:08)
[2021-12-14] MEDS: CEPACOL LOZENGE PO PRN ×3 (06:51→20:14)
[2021-12-14] MEDS: NICOTINE 14 MG/24 HR TRANSDERMAL TD SCH (07:53)
[2021-12-14] MEDS: lamoTRIgine 25MG TAB PO SCH (07:53)
[2021-12-14] MEDS: OMEPRAZOLE 20MG CAP PO SCH (07:53)
[2021-12-14] MEDS: LORATADINE 10 MG TAB PO SCH (07:54)
[2021-12-14] MEDS: FLUTICASONE PROP 0.05% NASAL SPRAY 16 GM (FLONASE) NARES SCH ×2 (07:54→20:12)
[2021-12-14] MEDS: MAALOX 30 ML SUSP *UDC PO PRN (11:16)
[2021-12-14 17:37] VITALS: BP 155/91
[2021-12-14] MEDS: PRAZOSIN 1 MG CAP PO SCH (20:13)
[2021-12-15] MEDS: IBUPROFEN 600MG TAB PO PRN ×2 (06:07→15:53)
[2021-12-15 06:43] VITALS: BP 144/88
[2021-12-15] MEDS: OMEPRAZOLE 20MG CAP PO SCH (07:37)
[2021-12-15] MEDS: lamoTRIgine 25MG TAB PO SCH (07:38)
[2021-12-15] MEDS: FLUTICASONE PROP 0.05% NASAL SPRAY 16 GM (FLONASE) NARES SCH ×2 (07:39→21:41)
[2021-12-15] MEDS: LORATADINE 10 MG TAB PO SCH (07:39)
[2021-12-15] MEDS: CEPACOL LOZENGE PO PRN ×3 (07:39→19:40)
[2021-12-15] MEDS: MAALOX 30 ML SUSP *UDC PO PRN (11:34)
[2021-12-15 17:52] VITALS: BP 150/89
[2021-12-15] MEDS: PRAZOSIN 1 MG CAP PO SCH (21:41)
[2021-12-16] MEDS: IBUPROFEN 600MG TAB PO PRN ×3 (04:31→21:03)
[2021-12-16] MEDS: CEPACOL LOZENGE PO PRN ×3 (04:32→20:03)
[2021-12-16 06:40] VITALS: BP 131/85
[2021-12-16] MEDS: OMEPRAZOLE 20MG CAP PO SCH (08:03)
[2021-12-16] MEDS: LORATADINE 10 MG TAB PO SCH (08:03)
[2021-12-16] MEDS: lamoTRIgine 25MG TAB PO SCH (08:03)
[2021-12-16] MEDS: FLUTICASONE PROP 0.05% NASAL SPRAY 16 GM (FLONASE) NARES SCH ×2 (08:03→20:02)
[2021-12-16 18:17] VITALS: BP 154/93
[2021-12-16] MEDS: PRAZOSIN 1 MG CAP PO SCH (20:03)
[2021-12-17] MEDS: MAALOX 30 ML SUSP *UDC PO PRN (01:03)
[2021-12-17] MEDS: IBUPROFEN 600MG TAB PO PRN ×3 (04:51→21:36)
[2021-12-17] MEDS: CEPACOL LOZENGE PO PRN ×3 (04:51→19:41)
[2021-12-17 07:10] VITALS: BP 142/86
[2021-12-17] MEDS: FLUTICASONE PROP 0.05% NASAL SPRAY 16 GM (FLONASE) NARES SCH ×2 (09:31→20:43)
[2021-12-17] MEDS: lamoTRIgine 25MG TAB PO SCH (09:31)
[2021-12-17] MEDS: OMEPRAZOLE 20MG CAP PO SCH (09:31)
[2021-12-17] MEDS: LORATADINE 10 MG TAB PO SCH (09:31)
[2021-12-17 18:08] VITALS: BP 146/76
[2021-12-17] MEDS: PRAZOSIN 1 MG CAP PO SCH ×2 (20:43→22:05)
[2021-12-18] MEDS: IBUPROFEN 600MG TAB PO PRN ×2 (07:13→15:25)
[2021-12-18] MEDS: LORATADINE 10 MG TAB PO SCH (09:12)
[2021-12-18] MEDS: FLUTICASONE PROP 0.05% NASAL SPRAY 16 GM (FLONASE) NARES SCH ×2 (09:13→20:08)
[2021-12-18] MEDS: OMEPRAZOLE 20MG CAP PO SCH (09:13)
[2021-12-18] MEDS: lamoTRIgine 25MG TAB PO SCH (09:13)
[2021-12-18] MEDS ORDERED: BENZTROPINE 1 MG TAB PO PRN (11:40)
[2021-12-18 18:00] VITALS: BP 154/88
[2021-12-18] MEDS: CEPACOL LOZENGE PO PRN (19:40)
[2021-12-18] MEDS: PRAZOSIN 1 MG CAP PO SCH (20:09)
[2021-12-19] MEDS: IBUPROFEN 600MG TAB PO PRN ×2 (04:16→16:27)
[2021-12-19] MEDS: CEPACOL LOZENGE PO PRN ×2 (04:16→16:27)
[2021-12-19 06:34] VITALS: BP 141/88
[2021-12-19] MEDS: FLUTICASONE PROP 0.05% NASAL SPRAY 16 GM (FLONASE) NARES SCH ×2 (08:16→20:52)
[2021-12-19] MEDS: LORATADINE 10 MG TAB PO SCH (08:16)
[2021-12-19] MEDS: OMEPRAZOLE 20MG CAP PO SCH (08:16)
[2021-12-19] MEDS: lamoTRIgine 25MG TAB PO SCH (08:17)
[2021-12-19] MEDS ORDERED: HALOPERIDOL DECANOATE 100 MG/ML VIAL (J1631) IM ONE (11:00)
[2021-12-19 18:00] VITALS: BP 143/83
[2021-12-19 20:52] VITALS: BP 143/83
[2021-12-19] MEDS: PRAZOSIN 1 MG CAP PO SCH (20:52)
[2021-12-20] MEDS: IBUPROFEN 600MG TAB PO PRN (01:17)
[2021-12-20] MEDS: CEPACOL LOZENGE PO PRN (01:17)
[2021-12-20 06:52] VITALS: BP 140/100
[2021-12-20] MEDS: FLUTICASONE PROP 0.05% NASAL SPRAY 16 GM (FLONASE) NARES SCH (08:12)
[2021-12-20] MEDS: lamoTRIgine 25MG TAB PO SCH (08:13)
[2021-12-20] MEDS: OMEPRAZOLE 20MG CAP PO SCH (08:13)
[2021-12-20] MEDS: LORATADINE 10 MG TAB PO SCH (08:13)
[2021-12-20] MEDS ORDERED: MINI1CAP PO (08:38)
[2021-12-20] MEDS ORDERED: CLAR10TA7 PO (08:38)
[2021-12-20] MEDS ORDERED: HALD50IN4 IM (08:38)
[2021-12-20] MEDS ORDERED: BENZ-52 PO (08:38)
[2021-12-20] MEDS ORDERED: HALO10TA20 PO (08:38)
[2021-12-20] MEDS ORDERED: LAMI1TAB7 PO (08:38)
== END 2021-12-20 10:03 | disposition home or self-care (01) | DRG 885 ==
LOC: M ED 14:19 → M ED INP 12-06 17:22 → M PSY 12-06 18:00
PROVIDERS: ADMIT Student in an Organized Health Care Education/Training Program; ATTEND Student in an Organized Health Care Education/Training Program
DX: F31.60 Bipolar disorder, current episode mixed, unspecified (principal); F43.10 Post-traumatic stress disorder, unspecified; F60.89 Other specific personality disorders; F17.210 Nicotine dependence, cigarettes, uncomplicated; Z59.00 Homelessness unspecified; Z91.14 Patient's other noncompliance with medication regimen; Z91.51 Personal history of suicidal behavior; Z81.8 Family history of other mental and behavioral disorders; Z79.899 Other long term (current) drug therapy; Z20.822 Contact with and (suspected) exposure to COVID-19; Z88.5 Allergy status to narcotic agent; Z88.8 Allergy status to other drugs, medicaments and biological substances; Z91.19 Patient's noncompliance with other medical treatment and regimen; H92.02 Otalgia, left ear; F42.9 Obsessive-compulsive disorder, unspecified; Z86.16 Personal history of COVID-19

== ENCOUNTER 2021-12-22 23:15 | Inpatient (IN) | payer MEDICARE, MEDICAID ==
[~2021-12-22] VITALS: Ht 167.6 cm; Wt 64.3 kg
[~2021-12-22 23:15] MED LIST changes: +BENZ-52 PO; +CLAR10TA7 PO; +ERYT5OIN25 TOP; +HALD50IN4 IM; +HALO10TA20 PO; +LAMI1TAB7 PO; +LAMO25TA4 PO; +MINI1CAP PO; +PATIENT COMMENT
[2021-12-23] MEDS ORDERED: ONDANSETRON 4MG 2ML VIAL As Ordered ONE (00:07)
[2021-12-23] MEDS ORDERED: ONDANSETRON 4MG 2ML VIAL IV ONE (00:10)
[2021-12-23 00:14] LABS: HEMATOCRIT 33.3 % (36.0-47.0); HEMOGLOBIN 10.8 g/dl (12.0-15.5); MEAN CORPUSCULAR HEMOGLOBIN 30.2 pg (27.0-33.0); MEAN CORPUSCULAR HGB CONC 32.4 g/dl (32.0-36.5); PLATELET COUNT, AUTOMATED 413 10^3/uL (150-450); RED BLOOD COUNT 3.58 10^6/uL (4.00-5.40); WHITE BLOOD COUNT 14.1 10^3/uL (4.0-10.0)
[2021-12-23 00:18] LABS: HCG, SERUM QUALITATIVE NEGATIVE (NEGATIVE)
[2021-12-23 00:31] LABS: RSV AMPLIFICATION NEGATIVE (NEGATIVE)
[2021-12-23 01:37] LABS: ACETAMINOPHEN LEVEL < 2.0 UG/ML (10.0-30.0); ALBUMIN 3.7 GM/DL (3.2-5.2); ALT/SGPT 28 U/L (12-78); BILIRUBIN,DIRECT < 0.1 MG/DL (0.0-0.2); BILIRUBIN,TOTAL 0.2 MG/DL (0.2-1.0); BLOOD UREA NITROGEN 15 MG/DL (7-18); CARBON DIOXIDE LEVEL 28 MEQ/L (21-32); CHLORIDE LEVEL 106 MEQ/L (98-107); CREATININE FOR GFR 0.86 MG/DL (0.55-1.30); ETHYL ALCOHOL (ETHANOL) < 0.003 % (0.000-0.010); GLOMERULAR FILTRATION RATE > 60.0 (>60); GLUCOSE, FASTING 134 MG/DL (70-100); LITHIUM LEVEL < 0.20 MEQ/L (0.60-1.20); POTASSIUM SERUM 3.3 MEQ/L (3.5-5.1); SALICYLATE LEVEL < 1.7 MG/DL (5.0-30.0); SODIUM LEVEL 140 MEQ/L (136-145); TOTAL PROTEIN 7.1 GM/DL (6.4-8.2)
[2021-12-23] MEDS ORDERED: POTASSIUM CHLORIDE 10MEQ SR TABLET PO ONE (02:05)
[2021-12-23] MEDS ORDERED: LIDOCAINE 2% 5ML JELLY UROJET TOP ONE (04:15)
[2021-12-23 05:06] LABS: AMPHETAMINES LEVEL URINE NEGATIVE (NEGATIVE); BARBITURATES URINE NEGATIVE (NEGATIVE); BENZODIAZEPINES URINE NEGATIVE (NEGATIVE); CANNABINOIDS URINE POSITIVE (NEGATIVE); COCAINE METABOLITE URINE NEGATIVE (NEGATIVE); METHADONE URINE NEGATIVE (NEGATIVE); OPIATES URINE NEGATIVE (NEGATIVE); PHENCYCLIDINE URINE NEGATIVE (NEGATIVE)
[2021-12-23] MEDS ORDERED: PRAZ1CAP PO (05:25)
[2021-12-23] MEDS ORDERED: BENZ-52 PO (05:25)
[2021-12-23] MEDS ORDERED: LAMO100T3 PO (05:34)
[2021-12-23] MEDS ORDERED: HALD50IN4 IM (05:34)
[2021-12-23] MEDS ORDERED: LORA-622 PO (05:34)
[2021-12-23] MEDS ORDERED: HALO10TA2 PO (05:34)
[2021-12-23] MEDS ORDERED: HOME MED LIST COMPLETE! XX SCH (05:35)
[2021-12-23] MEDS ORDERED: lamoTRIgine 100MG TAB PO SCH (09:00)
[2021-12-23] MEDS: NICOTINE 21MG/24HR 1 EA TRANSDERMAL TD SCH (09:00)
[2021-12-23] MEDS ORDERED: IBUPROFEN 600MG TAB PO ONE (10:20)
[2021-12-23] MEDS ORDERED: OMEPRAZOLE 20MG CAP PO SCH (10:20)
[2021-12-23] MEDS ORDERED: LORazepam 2 MG TAB PO ONE (11:05)
[2021-12-23] MEDS ORDERED: traZODone 50 MG TAB PO PRN (18:50)
[2021-12-23] MEDS ORDERED: MAALOX 30 ML SUSP *UDC PO PRN (18:50)
[2021-12-23] MEDS ORDERED: ACETAMINOPHEN TAB 650MG DOSE (2X325MG) PO PRN (18:50)
[2021-12-23] MEDS ORDERED: MOM 30ML SUSPENSION UDC PO PRN (18:50)
[2021-12-23] MEDS ORDERED: LORazepam 1 MG TAB PO PRN (18:50)
[2021-12-24] MEDS: NICOTINE 21MG/24HR 1 EA TRANSDERMAL TD SCH (08:37)
[2021-12-24 08:55] LABS: HEMATOCRIT 36.9 % (36.0-47.0); HEMOGLOBIN 11.8 g/dl (12.0-15.5); MEAN CORPUSCULAR VOLUME 93.9 fl (80.0-96.0); PLATELET COUNT, AUTOMATED 403 10^3/uL (150-450); RED BLOOD COUNT 3.93 10^6/uL (4.00-5.40); WHITE BLOOD COUNT 9.3 10^3/uL (4.0-10.0)
[2021-12-24] MEDS ORDERED: IBUPROFEN 600MG TAB PO PRN (08:55)
[2021-12-24] MEDS ORDERED: BENZTROPINE 1 MG TAB PO PRN (08:55)
[2021-12-24] MEDS ORDERED: NICOTINE POLACRILEX 2 MG GUM PO PRN (08:55)
[2021-12-24] MEDS: LORATADINE 10 MG TAB PO SCH (09:25)
[2021-12-24] MEDS: lamoTRIgine 100MG TAB PO SCH (09:25)
[2021-12-24] MEDS: OMEPRAZOLE 20MG CAP PO SCH (09:26)
[2021-12-24 09:42] LABS: ALBUMIN 3.5 GM/DL (3.2-5.2); ALT/SGPT 22 U/L (12-78); BILIRUBIN,TOTAL 0.3 MG/DL (0.2-1.0); BLOOD UREA NITROGEN 11 MG/DL (7-18); CALCIUM LEVEL 9.1 MG/DL (8.5-10.1); CARBON DIOXIDE LEVEL 30 MEQ/L (21-32); CHLORIDE LEVEL 107 MEQ/L (98-107); CREATININE FOR GFR 0.74 MG/DL (0.55-1.30); GLOMERULAR FILTRATION RATE > 60.0 (>60); GLUCOSE, FASTING 69 MG/DL (70-100); POTASSIUM SERUM 3.9 MEQ/L (3.5-5.1); SODIUM LEVEL 141 MEQ/L (136-145); TOTAL PROTEIN 6.8 GM/DL (6.4-8.2)
[2021-12-24] MEDS: FLUTICASONE PROP 0.05% NASAL SPRAY 16 GM (FLONASE) NARES SCH ×2 (10:39→21:13)
[2021-12-24] MEDS ORDERED: CEPACOL LOZENGE PO PRN (13:05)
[2021-12-24] MEDS ORDERED: PILL CUTTER 1 EACH XX PRN (13:35)
[2021-12-24] MEDS: CETIRIZINE (ZyrTEC) 10 MG TAB PO SCH (14:49)
[2021-12-24] MEDS: AUGMENTIN 875 MG TAB PO SCH ×2 (14:49→21:14)
[2021-12-24] MEDS: DOCUSATE SODIUM 100MG CAPSULE PO SCH ×2 (14:49→21:17)
[2021-12-24] MEDS ORDERED: SENNA 8.6 MG TAB (SENOKOT) PO SCH (21:00)
[2021-12-24] MEDS ORDERED: PRAZOSIN 1 MG CAP PO SCH (21:00)
[2021-12-25 06:24] VITALS: BP 125/78
[2021-12-25] MEDS: LORATADINE 10 MG TAB PO SCH (08:17)
[2021-12-25] MEDS: CETIRIZINE (ZyrTEC) 10 MG TAB PO SCH (08:17)
[2021-12-25] MEDS: DOCUSATE SODIUM 100MG CAPSULE PO SCH (08:17)
[2021-12-25] MEDS: AUGMENTIN 875 MG TAB PO SCH (08:17)
[2021-12-25] MEDS: OMEPRAZOLE 20MG CAP PO SCH (08:17)
[2021-12-25] MEDS: lamoTRIgine 100MG TAB PO SCH (08:17)
[2021-12-25] MEDS: FLUTICASONE PROP 0.05% NASAL SPRAY 16 GM (FLONASE) NARES SCH (08:17)
[2021-12-25] MEDS: NICOTINE 21MG/24HR 1 EA TRANSDERMAL TD SCH (08:18)
[2021-12-25] MEDS ORDERED: PRAZ1CAP PO (09:07)
[2021-12-25] MEDS ORDERED: AMOX875T2 PO (09:07)
[2021-12-25] MEDS ORDERED: SENN18TA PO (09:07)
[2021-12-25] MEDS ORDERED: NICO21PAT TD (09:07)
[2021-12-25] MEDS ORDERED: BENZ-52 PO (09:07)
[2021-12-25] MEDS ORDERED: COLA100C5 PO (09:07)
[2021-12-25] MEDS ORDERED: FLUTISP NARES (09:07)
[2021-12-25] MEDS ORDERED: NICO2GUM PO (09:07)
[2021-12-25] MEDS ORDERED: LAMO100T3 PO (09:07)
== END 2021-12-25 10:47 | disposition home or self-care (01) | DRG 885 ==
LOC: M ED 23:15 → EDBD 23:15 → M ED INP 12-23 18:47 → M PSY 12-23 21:23
PROVIDERS: ADMIT Student in an Organized Health Care Education/Training Program; ATTEND Student in an Organized Health Care Education/Training Program
DX: F31.60 Bipolar disorder, current episode mixed, unspecified (principal); F43.10 Post-traumatic stress disorder, unspecified; F60.89 Other specific personality disorders; F17.200 Nicotine dependence, unspecified, uncomplicated; Z59.00 Homelessness unspecified; Z79.899 Other long term (current) drug therapy; Z88.5 Allergy status to narcotic agent; Z88.8 Allergy status to other drugs, medicaments and biological substances; Z20.822 Contact with and (suspected) exposure to COVID-19; Z86.16 Personal history of COVID-19; K59.00 Constipation, unspecified; H66.90 Otitis media, unspecified, unspecified ear

== ENCOUNTER 2021-12-29 00:31 | Emergency (ER) | payer MEDICARE, MEDICAID ==
[~2021-12-29] VITALS: Ht 162.6 cm; Wt 62.9 kg
[2021-12-29 00:31] VITALS: BP 156/93
[~2021-12-29 00:31] MED LIST changes: +AMOX875T2 PO; +HALO10TA2 PO; +LORA-622 PO; +NICO2GUM PO; +PRAZ1CAP PO; +SENN18TA PO
== END 2021-12-29 00:59 | disposition left against medical advice (07) ==
LOC: M ED 00:31
DX: Z53.21 Procedure and treatment not carried out due to patient leaving prior to being seen by health care provider (principal)

== ENCOUNTER 2022-01-30 23:24 | Emergency (ER) | payer MEDICARE, MEDICAID ==
[~2022-01-30] VITALS: Ht 162.6 cm; Wt 70.4 kg
[2022-01-30] MEDS ORDERED: LITH300C PO (23:33)
[2022-01-30] MEDS ORDERED: SERO50TA PO (23:33)
[2022-01-30] MEDS ORDERED: NEUR300C PO (23:33)
[2022-01-31 03:19] LABS: BASO # 0.1 10^3/uL (0.0-0.2); BASO % 0.5 % (0.0-1.0); EOS # 0.6 10^3/uL (0.0-0.5); EOS % 5.6 % (0.0-3.0); HEMOGLOBIN 11.2 g/dl (12.0-15.5); LYMPH # 3.2 10^3/uL (1.5-5.0); LYMPH % 28.4 % (24.0-44.0); MEAN CORPUSCULAR HEMOGLOBIN 29.6 pg (27.0-33.0); MEAN CORPUSCULAR VOLUME 92.3 fl (80.0-96.0); MONO # 1.2 10^3/uL (0.0-0.8); MONO % 10.4 % (2.0-8.0); NEUTROPHILS # 6.2 10^3/uL (1.5-8.5); NEUTROPHILS % 54.8 % (36.0-66.0); PLATELET COUNT, AUTOMATED 377 10^3/uL (150-450); RED BLOOD COUNT 3.79 10^6/uL (4.00-5.40); WHITE BLOOD COUNT 11.4 10^3/uL (4.0-10.0)
[2022-01-31 03:40] LABS: HCG, SERUM QUALITATIVE NEGATIVE (NEGATIVE)
[2022-01-31 03:52] LABS: RSV AMPLIFICATION NEGATIVE (NEGATIVE)
[2022-01-31 03:56] LABS: ACETAMINOPHEN LEVEL < 2.0 UG/ML (10.0-30.0); BLOOD UREA NITROGEN 15 MG/DL (7-18); CALCIUM LEVEL 9.3 MG/DL (8.5-10.1); CARBON DIOXIDE LEVEL 24 MEQ/L (21-32); CHLORIDE LEVEL 109 MEQ/L (98-107); CREATININE FOR GFR 0.71 MG/DL (0.55-1.30); ETHYL ALCOHOL (ETHANOL) < 0.003 % (0.000-0.010); GLOMERULAR FILTRATION RATE > 60.0 (>60); GLUCOSE, FASTING 84 MG/DL (70-100); SALICYLATE LEVEL < 1.7 MG/DL (5.0-30.0); SODIUM LEVEL 139 MEQ/L (136-145)
[2022-01-31 05:15] LABS: LITHIUM LEVEL < 0.20 MEQ/L (0.60-1.20)
[2022-01-31] MEDS ORDERED: COLA100C5 PO (10:52)
[2022-01-31] MEDS ORDERED: PRAZ1CAP PO (10:52)
[2022-01-31] MEDS ORDERED: IBUP-1720 PO (10:53)
[2022-01-31] MEDS ORDERED: HOME MED LIST COMPLETE! XX SCH ×2 (10:55→11:10)
[2022-01-31 15:26] LABS: AMPHETAMINES LEVEL URINE NEGATIVE (NEGATIVE); BARBITURATES URINE NEGATIVE (NEGATIVE); BENZODIAZEPINES URINE NEGATIVE (NEGATIVE); CANNABINOIDS URINE NEGATIVE (NEGATIVE); COCAINE METABOLITE URINE NEGATIVE (NEGATIVE); METHADONE URINE NEGATIVE (NEGATIVE); OPIATES URINE NEGATIVE (NEGATIVE); PHENCYCLIDINE URINE NEGATIVE (NEGATIVE)
[2022-02-01] MEDS: LITHIUM CARBONATE 300 MG CAP PO SCH ×2 (11:19→21:00)
[2022-02-01] MEDS: OMEPRAZOLE 20MG CAP PO SCH (11:19)
[2022-02-01] MEDS: GABAPENTIN 300 MG CAP PO SCH (11:19)
[2022-02-01] MEDS: LORATADINE 10 MG TAB PO SCH (11:20)
[2022-02-01] MEDS: lamoTRIgine 100MG TAB PO SCH (11:20)
[2022-02-01] MEDS: PRAZOSIN 1 MG CAP PO SCH (21:00)
[2022-02-01] MEDS: QUEtiapine FUMARATE 50MG TAB PO SCH (21:00)
[2022-02-01] MEDS ORDERED: PRAZOSIN 1 MG CAP PO SCH (21:00)
[2022-02-01] MEDS ORDERED: QUEtiapine FUMARATE 50MG TAB PO SCH (21:00)
[2022-02-02] MEDS: GABAPENTIN 300 MG CAP PO SCH (09:32)
[2022-02-02] MEDS: OMEPRAZOLE 20MG CAP PO SCH (09:32)
[2022-02-02] MEDS: LITHIUM CARBONATE 300 MG CAP PO SCH ×2 (09:32→21:19)
[2022-02-02] MEDS: LORATADINE 10 MG TAB PO SCH (09:32)
[2022-02-02] MEDS: lamoTRIgine 100MG TAB PO SCH (09:32)
[2022-02-02 09:47] LABS: ALBUMIN 3.3 GM/DL (3.2-5.2); ALT/SGPT 14 U/L (12-78); BILIRUBIN,DIRECT 0.3 MG/DL (0.0-0.2); BILIRUBIN,TOTAL 0.2 MG/DL (0.2-1.0); TOTAL PROTEIN 6.4 GM/DL (6.4-8.2)
[2022-02-02] MEDS: PRAZOSIN 1 MG CAP PO SCH (21:19)
[2022-02-02] MEDS: QUEtiapine FUMARATE 50MG TAB PO SCH (21:19)
[2022-02-03] MEDS: LORATADINE 10 MG TAB PO SCH (09:34)
[2022-02-03] MEDS: LITHIUM CARBONATE 300 MG CAP PO SCH ×2 (09:34→22:22)
[2022-02-03] MEDS: OMEPRAZOLE 20MG CAP PO SCH (09:34)
[2022-02-03] MEDS: GABAPENTIN 300 MG CAP PO SCH (09:34)
[2022-02-03] MEDS: lamoTRIgine 100MG TAB PO SCH (09:35)
[2022-02-03 19:02] LABS: RSV AMPLIFICATION NEGATIVE (NEGATIVE)
[2022-02-03] MEDS: QUEtiapine FUMARATE 50MG TAB PO SCH (22:21)
[2022-02-03 22:23] VITALS: BP 142/84
[2022-02-03] MEDS: PRAZOSIN 1 MG CAP PO SCH (22:23)
[2022-02-04] MEDS: GABAPENTIN 300 MG CAP PO SCH (09:58)
[2022-02-04] MEDS: LITHIUM CARBONATE 300 MG CAP PO SCH (09:59)
[2022-02-04] MEDS: LORATADINE 10 MG TAB PO SCH (09:59)
[2022-02-04] MEDS: lamoTRIgine 100MG TAB PO SCH (09:59)
[2022-02-04] MEDS: OMEPRAZOLE 20MG CAP PO SCH (09:59)
[2022-02-04 13:45] VITALS: BP 126/80
== END 2022-02-04 13:45 | disposition home or self-care (01) ==
LOC: M ED 23:24
DX: F29 Unspecified psychosis not due to a substance or known physiological condition (principal); F31.9 Bipolar disorder, unspecified; F43.0 Acute stress reaction; Z87.891 Personal history of nicotine dependence; Z88.5 Allergy status to narcotic agent; Z88.8 Allergy status to other drugs, medicaments and biological substances; Z88.9 Allergy status to unspecified drugs, medicaments and biological substances

== ENCOUNTER 2022-02-06 20:45 | Inpatient (IN) | payer MEDICARE, MEDICAID ==
[~2022-02-06] VITALS: Ht 162.6 cm; Wt 70.4 kg
[~2022-02-06 20:45] MED LIST changes: +IBUP-1720 PO; +NEUR300C PO; +SERO50TA PO
[2022-02-06] MEDS ORDERED: ONDANSETRON 4MG ORAL DISINTEGRATING TAB PO ONE (21:35)
[2022-02-06 21:43] LABS: HEMOGLOBIN 11.7 g/dl (12.0-15.5); MEAN CORPUSCULAR HEMOGLOBIN 29.9 pg (27.0-33.0); MEAN CORPUSCULAR HGB CONC 32.5 g/dl (32.0-36.5); MEAN CORPUSCULAR VOLUME 92.1 fl (80.0-96.0); PLATELET COUNT, AUTOMATED 405 10^3/uL (150-450); RED BLOOD COUNT 3.91 10^6/uL (4.00-5.40); WHITE BLOOD COUNT 15.7 10^3/uL (4.0-10.0)
[2022-02-06 22:09] LABS: RSV AMPLIFICATION NEGATIVE (NEGATIVE)
[2022-02-06 22:17] LABS: ACETAMINOPHEN LEVEL < 2.0 UG/ML (10.0-30.0); ALBUMIN 3.9 GM/DL (3.2-5.2); ALT/SGPT 16 U/L (12-78); BILIRUBIN,DIRECT 0.1 MG/DL (0.0-0.2); BILIRUBIN,TOTAL 0.4 MG/DL (0.2-1.0); BLOOD UREA NITROGEN 10 MG/DL (7-18); CALCIUM LEVEL 9.4 MG/DL (8.5-10.1); CARBON DIOXIDE LEVEL 29 MEQ/L (21-32); CHLORIDE LEVEL 104 MEQ/L (98-107); CREATININE FOR GFR 0.91 MG/DL (0.55-1.30); ETHYL ALCOHOL (ETHANOL) 0.005 % (0.000-0.010); GLOMERULAR FILTRATION RATE > 60.0 (>60); GLUCOSE, FASTING 82 MG/DL (70-100); LITHIUM LEVEL 0.39 MEQ/L (0.60-1.20); POTASSIUM SERUM 4.1 MEQ/L (3.5-5.1); SALICYLATE LEVEL < 1.7 MG/DL (5.0-30.0); SODIUM LEVEL 137 MEQ/L (136-145); TOTAL PROTEIN 7.6 GM/DL (6.4-8.2)
[2022-02-06 22:25] LABS: HCG, SERUM QUALITATIVE NEGATIVE (NEGATIVE)
[2022-02-07] MEDS ORDERED: HOME MED LIST COMPLETE! XX SCH (08:15)
[2022-02-07] MEDS: OMEPRAZOLE 20MG CAP PO SCH (09:54)
[2022-02-07] MEDS: lamoTRIgine 100MG TAB PO SCH (09:54)
[2022-02-07] MEDS: GABAPENTIN 300 MG CAP PO SCH (09:54)
[2022-02-07] MEDS ORDERED: NICOTINE 21MG/24HR 1 EA TRANSDERMAL TD ONE (11:20)
[2022-02-07] MEDS ORDERED: IBUPROFEN 600MG TAB PO ONE ×2 (11:30→20:20)
[2022-02-07 12:50] LABS: AMPHETAMINES LEVEL URINE NEGATIVE (NEGATIVE); BARBITURATES URINE NEGATIVE (NEGATIVE); BENZODIAZEPINES URINE NEGATIVE (NEGATIVE); CANNABINOIDS URINE POSITIVE (NEGATIVE); COCAINE METABOLITE URINE NEGATIVE (NEGATIVE); METHADONE URINE NEGATIVE (NEGATIVE); OPIATES URINE NEGATIVE (NEGATIVE); PHENCYCLIDINE URINE NEGATIVE (NEGATIVE)
[2022-02-07] MEDS ORDERED: OLANZapine ORAL DISINTEGRATING TAB 5MG PO ONE (15:10)
[2022-02-07] MEDS ORDERED: LORazepam 1 MG TAB PO ONE (15:10)
[2022-02-07] MEDS ORDERED: diphenhydrAMINE 50MG CAP PO ONE (20:20)
[2022-02-07] MEDS ORDERED: ONDANSETRON 4MG TAB PO ONE (20:20)
[2022-02-07] MEDS: QUEtiapine FUMARATE 50MG TAB PO SCH (20:49)
[2022-02-07] MEDS: LITHIUM CARBONATE 300 MG CAP PO SCH (20:49)
[2022-02-07] MEDS: PRAZOSIN 1 MG CAP PO SCH (20:49)
[2022-02-08] MEDS: GABAPENTIN 300 MG CAP PO SCH (09:00)
[2022-02-08] MEDS: OMEPRAZOLE 20MG CAP PO SCH (09:00)
[2022-02-08] MEDS: lamoTRIgine 100MG TAB PO SCH (10:16)
[2022-02-08] MEDS: LITHIUM CARBONATE 300 MG CAP PO SCH (10:17)
[2022-02-08] MEDS ORDERED: OLANZapine ORAL DISINTEGRATING TAB 5MG PO ONE (17:35)
[2022-02-08] MEDS ORDERED: ONDANSETRON 4MG ORAL DISINTEGRATING TAB PO ONE (17:35)
[2022-02-08] MEDS ORDERED: IBUPROFEN 400MG TAB PO ONE (17:35)
[2022-02-08] MEDS: PRAZOSIN 1 MG CAP PO SCH (23:51)
[2022-02-08] MEDS: QUEtiapine FUMARATE 50MG TAB PO SCH (23:51)
[2022-02-09] MEDS: GABAPENTIN 300 MG CAP PO SCH (09:00)
[2022-02-09] MEDS: lamoTRIgine 100MG TAB PO SCH (09:02)
[2022-02-09] MEDS: OMEPRAZOLE 20MG CAP PO SCH (09:03)
[2022-02-09] MEDS ORDERED: IBUPROFEN 600MG TAB PO ONE (17:00)
[2022-02-09] MEDS: LITHIUM CARBONATE 300 MG CAP PO SCH (22:05)
[2022-02-09] MEDS: PRAZOSIN 1 MG CAP PO SCH (22:05)
[2022-02-09] MEDS: QUEtiapine FUMARATE 50MG TAB PO SCH (22:05)
[2022-02-10] MEDS: lamoTRIgine 100MG TAB PO SCH (09:00)
[2022-02-10] MEDS: OMEPRAZOLE 20MG CAP PO SCH (09:15)
[2022-02-10] MEDS: GABAPENTIN 300 MG CAP PO SCH (09:15)
[2022-02-10] MEDS ORDERED: IBUPROFEN 600MG TAB PO ONE (11:40)
[2022-02-10] MEDS ORDERED: NICOTINE 21MG/24HR 1 EA TRANSDERMAL TD ONE (15:05)
[2022-02-10] MEDS ORDERED: IBUPROFEN 800 MG TAB PO ONE (20:00)
[2022-02-10] MEDS: LITHIUM CARBONATE 300 MG CAP PO SCH (20:55)
[2022-02-10] MEDS: PRAZOSIN 1 MG CAP PO SCH (20:55)
[2022-02-10] MEDS: QUEtiapine FUMARATE 50MG TAB PO SCH (20:55)
[2022-02-10] MEDS ORDERED: OLANZapine ORAL DISINTEGRATING TAB 5MG PO ONE (23:50)
[2022-02-11] MEDS: lamoTRIgine 100MG TAB PO SCH (10:08)
[2022-02-11] MEDS: OMEPRAZOLE 20MG CAP PO SCH (10:08)
[2022-02-11] MEDS: GABAPENTIN 300 MG CAP PO SCH (10:08)
[2022-02-11] MEDS: LITHIUM CARBONATE 300 MG CAP PO SCH ×3 (21:00→22:10)
[2022-02-11] MEDS: QUEtiapine FUMARATE 50MG TAB PO SCH (22:07)
[2022-02-11] MEDS: PRAZOSIN 1 MG CAP PO SCH (22:07)
[2022-02-12] MEDS: LITHIUM CARBONATE 300 MG CAP PO SCH (07:23)
[2022-02-12] MEDS: OMEPRAZOLE 20MG CAP PO SCH (09:00)
[2022-02-12] MEDS: GABAPENTIN 300 MG CAP PO SCH (09:00)
[2022-02-12] MEDS: lamoTRIgine 100MG TAB PO SCH (09:00)
[2022-02-12 13:18] LABS: RSV AMPLIFICATION NEGATIVE (NEGATIVE)
[2022-02-12] MEDS ORDERED: ACETAMINOPHEN TAB 650MG DOSE (2X325MG) PO PRN ×2 (13:25→14:15)
[2022-02-12] MEDS ORDERED: IBUPROFEN 200MG TAB PO PRN ×2 (13:30→14:15)
[2022-02-12] MEDS ORDERED: MOM 30ML SUSPENSION UDC PO PRN (13:30)
[2022-02-12 14:47] VITALS: BP 130/87
[2022-02-12] MEDS: LORATADINE 10 MG TAB PO SCH (15:49)
[2022-02-12] MEDS: PRAZOSIN 1 MG CAP PO SCH (20:00)
[2022-02-12] MEDS: SENNA 8.6 MG TAB (SENOKOT) PO SCH (20:00)
[2022-02-12] MEDS: FLUTICASONE PROP 0.05% NASAL SPRAY 16 GM (FLONASE) NARES SCH (20:00)
[2022-02-12] MEDS: IBUPROFEN 600MG TAB PO PRN (20:01)
[2022-02-12] MEDS ORDERED: LITHIUM CARBONATE 300 MG CAP PO SCH (21:00)
[2022-02-12] MEDS ORDERED: QUEtiapine FUMARATE 50MG TAB PO SCH (21:00)
[2022-02-13 06:31] VITALS: BP 116/62
[2022-02-13] MEDS: DOCUSATE SODIUM 100MG CAPSULE PO PRN (08:01)
[2022-02-13] MEDS: FLUTICASONE PROP 0.05% NASAL SPRAY 16 GM (FLONASE) NARES SCH ×2 (08:01→21:25)
[2022-02-13] MEDS: OMEPRAZOLE 20MG CAP PO SCH (08:01)
[2022-02-13] MEDS: LORATADINE 10 MG TAB PO SCH (08:01)
[2022-02-13] MEDS: NICOTINE 21MG/24HR 1 EA TRANSDERMAL TD PRN (08:02)
[2022-02-13] MEDS ORDERED: lamoTRIgine 100MG TAB PO SCH (09:00)
[2022-02-13] MEDS ORDERED: GABAPENTIN 300 MG CAP PO SCH (09:00)
[2022-02-13] MEDS ORDERED: OLANZapine 10 MG TAB PO PRN (11:10)
[2022-02-13] MEDS: IBUPROFEN 600MG TAB PO PRN (12:21)
[2022-02-13] MEDS ORDERED: IBUPROFEN 600MG TAB PO ONE (14:10)
[2022-02-13 15:58] VITALS: BP 136/70
[2022-02-13] MEDS ORDERED: QUEtiapine FUMARATE 100 MG TAB PO SCH (21:00)
[2022-02-13] MEDS: GABAPENTIN 300 MG CAP PO SCH (21:26)
[2022-02-13] MEDS: SENNA 8.6 MG TAB (SENOKOT) PO SCH (21:26)
[2022-02-13] MEDS: PRAZOSIN 1 MG CAP PO SCH (21:26)
[2022-02-14] MEDS: BENZTROPINE 1 MG TAB PO PRN (00:21)
[2022-02-14 06:16] VITALS: BP 115/56
[2022-02-14] MEDS: FLUTICASONE PROP 0.05% NASAL SPRAY 16 GM (FLONASE) NARES SCH ×2 (07:48→20:47)
[2022-02-14] MEDS: LORATADINE 10 MG TAB PO SCH (07:49)
[2022-02-14] MEDS: lamoTRIgine 100MG TAB PO SCH (07:49)
[2022-02-14] MEDS: NICOTINE 21MG/24HR 1 EA TRANSDERMAL TD PRN (07:49)
[2022-02-14] MEDS: OMEPRAZOLE 20MG CAP PO SCH (07:50)
[2022-02-14] MEDS: IBUPROFEN 600MG TAB PO PRN ×2 (07:50→20:48)
[2022-02-14] MEDS: GABAPENTIN 300 MG CAP PO SCH ×2 (07:50→20:48)
[2022-02-14] MEDS ORDERED: OLANZapine 5 MG TAB PO PRN (11:40)
[2022-02-14] MEDS: MAALOX 30 ML SUSP *UDC PO PRN (12:01)
[2022-02-14] MEDS: QUEtiapine FUMARATE 100 MG TAB PO SCH ×2 (13:02→20:48)
[2022-02-14 18:31] VITALS: BP 134/88
[2022-02-14] MEDS: PRAZOSIN 1 MG CAP PO SCH (20:47)
[2022-02-14] MEDS: SENNA 8.6 MG TAB (SENOKOT) PO SCH (20:48)
[2022-02-15 06:55] VITALS: BP 123/67
[2022-02-15] MEDS: FLUTICASONE PROP 0.05% NASAL SPRAY 16 GM (FLONASE) NARES SCH ×2 (08:14→21:36)
[2022-02-15] MEDS: LORATADINE 10 MG TAB PO SCH (08:14)
[2022-02-15] MEDS: lamoTRIgine 100MG TAB PO SCH (08:15)
[2022-02-15] MEDS: OMEPRAZOLE 20MG CAP PO SCH (08:15)
[2022-02-15] MEDS: GABAPENTIN 300 MG CAP PO SCH ×2 (08:15→21:36)
[2022-02-15] MEDS: QUEtiapine FUMARATE 100 MG TAB PO SCH ×2 (08:15→21:37)
[2022-02-15] MEDS: PILL CUTTER 1 EACH XX PRN (08:17)
[2022-02-15] MEDS: MAALOX 30 ML SUSP *UDC PO PRN (11:24)
[2022-02-15] MEDS: BENZTROPINE 1 MG TAB PO PRN (11:55)
[2022-02-15 14:15] LABS: HIV 1&2 SCREEN CENTAUR NEGATIVE (NEGATIVE)
[2022-02-15 14:23] LABS: GC DNA AMPLIFICATION NEGATIVE (NEGATIVE)
[2022-02-15 16:28] VITALS: BP 132/78
[2022-02-15] MEDS ORDERED: AZITHROMYCIN 250MG TABLET PO ONE (17:00)
[2022-02-15] MEDS: SENNA 8.6 MG TAB (SENOKOT) PO SCH (21:36)
[2022-02-15] MEDS: DOCUSATE SODIUM 100MG CAPSULE PO PRN (21:36)
[2022-02-15] MEDS: PRAZOSIN 1 MG CAP PO SCH (21:36)
[2022-02-16 06:37] VITALS: BP 116/59
[2022-02-16] MEDS: LORATADINE 10 MG TAB PO SCH (07:56)
[2022-02-16] MEDS: FLUTICASONE PROP 0.05% NASAL SPRAY 16 GM (FLONASE) NARES SCH ×2 (07:56→20:02)
[2022-02-16] MEDS: lamoTRIgine 100MG TAB PO SCH (07:57)
[2022-02-16] MEDS: OMEPRAZOLE 20MG CAP PO SCH (07:57)
[2022-02-16] MEDS: GABAPENTIN 300 MG CAP PO SCH ×2 (07:58→20:01)
[2022-02-16] MEDS: QUEtiapine FUMARATE 100 MG TAB PO SCH ×2 (07:58→20:02)
[2022-02-16] MEDS: PILL CUTTER 1 EACH XX PRN (07:58)
[2022-02-16] MEDS: MAALOX 30 ML SUSP *UDC PO PRN (12:18)
[2022-02-16 16:21] VITALS: BP 117/69
[2022-02-16] MEDS: PRAZOSIN 1 MG CAP PO SCH (20:01)
[2022-02-16] MEDS: SENNA 8.6 MG TAB (SENOKOT) PO SCH (20:02)
[2022-02-17 06:30] VITALS: BP 110/60
[2022-02-17] MEDS: FLUTICASONE PROP 0.05% NASAL SPRAY 16 GM (FLONASE) NARES SCH ×2 (08:10→20:29)
[2022-02-17] MEDS: LORATADINE 10 MG TAB PO SCH (08:11)
[2022-02-17] MEDS: QUEtiapine FUMARATE 100 MG TAB PO SCH ×2 (08:11→20:30)
[2022-02-17] MEDS: lamoTRIgine 100MG TAB PO SCH (08:11)
[2022-02-17] MEDS: GABAPENTIN 300 MG CAP PO SCH ×2 (08:11→20:29)
[2022-02-17] MEDS: PILL CUTTER 1 EACH XX PRN (08:11)
[2022-02-17] MEDS: OMEPRAZOLE 20MG CAP PO SCH (08:11)
[2022-02-17 16:31] VITALS: BP 140/79
[2022-02-17] MEDS: SENNA 8.6 MG TAB (SENOKOT) PO SCH (20:29)
[2022-02-17] MEDS: PRAZOSIN 1 MG CAP PO SCH (20:29)
[2022-02-18 06:20] VITALS: BP 105/56
[2022-02-18] MEDS: GABAPENTIN 300 MG CAP PO SCH ×2 (08:02→20:26)
[2022-02-18] MEDS: OMEPRAZOLE 20MG CAP PO SCH (08:02)
[2022-02-18] MEDS: LORATADINE 10 MG TAB PO SCH (08:02)
[2022-02-18] MEDS: FLUTICASONE PROP 0.05% NASAL SPRAY 16 GM (FLONASE) NARES SCH ×2 (08:03→20:27)
[2022-02-18] MEDS: lamoTRIgine 100MG TAB PO SCH (08:03)
[2022-02-18] MEDS: QUEtiapine FUMARATE 100 MG TAB PO SCH ×3 (08:05→20:27)
[2022-02-18] MEDS: SENNA 8.6 MG TAB (SENOKOT) PO SCH (20:27)
[2022-02-18] MEDS: PRAZOSIN 1 MG CAP PO SCH (20:27)
[2022-02-19 06:37] VITALS: BP 108/61
[2022-02-19] MEDS: FLUTICASONE PROP 0.05% NASAL SPRAY 16 GM (FLONASE) NARES SCH ×2 (09:05→20:46)
[2022-02-19] MEDS: OMEPRAZOLE 20MG CAP PO SCH (09:07)
[2022-02-19] MEDS: lamoTRIgine 100MG TAB PO SCH (09:07)
[2022-02-19] MEDS: GABAPENTIN 300 MG CAP PO SCH ×2 (09:07→20:46)
[2022-02-19] MEDS: LORATADINE 10 MG TAB PO SCH (09:07)
[2022-02-19] MEDS: QUEtiapine FUMARATE 100 MG TAB PO SCH ×2 (09:08→20:46)
[2022-02-19 18:20] VITALS: BP 123/63
[2022-02-19] MEDS: SENNA 8.6 MG TAB (SENOKOT) PO SCH (20:46)
[2022-02-19] MEDS: PRAZOSIN 1 MG CAP PO SCH (20:48)
[2022-02-20 06:48] VITALS: BP 108/58
[2022-02-20] MEDS: OMEPRAZOLE 20MG CAP PO SCH (08:32)
[2022-02-20] MEDS: GABAPENTIN 300 MG CAP PO SCH ×2 (08:32→20:20)
[2022-02-20] MEDS: LORATADINE 10 MG TAB PO SCH (08:32)
[2022-02-20] MEDS: FLUTICASONE PROP 0.05% NASAL SPRAY 16 GM (FLONASE) NARES SCH ×2 (08:32→20:19)
[2022-02-20] MEDS: lamoTRIgine 100MG TAB PO SCH (08:33)
[2022-02-20] MEDS: QUEtiapine FUMARATE 100 MG TAB PO SCH ×2 (08:34→20:20)
[2022-02-20] MEDS: buPROPion **XL** TABLET 150MG (WELLBUTRIN XL) PO SCH (10:30)
[2022-02-20 18:24] VITALS: BP 130/69
[2022-02-20] MEDS: DOCUSATE SODIUM 100MG CAPSULE PO PRN (20:19)
[2022-02-20] MEDS: SENNA 8.6 MG TAB (SENOKOT) PO SCH (20:20)
[2022-02-20] MEDS: PRAZOSIN 1 MG CAP PO SCH (20:22)
[2022-02-21 06:31] VITALS: BP 122/55
[2022-02-21] MEDS: GABAPENTIN 300 MG CAP PO SCH ×2 (08:28→21:41)
[2022-02-21] MEDS: FLUTICASONE PROP 0.05% NASAL SPRAY 16 GM (FLONASE) NARES SCH ×2 (08:28→21:00)
[2022-02-21] MEDS: LORATADINE 10 MG TAB PO SCH (08:28)
[2022-02-21] MEDS: buPROPion **XL** TABLET 150MG (WELLBUTRIN XL) PO SCH (08:28)
[2022-02-21] MEDS: OMEPRAZOLE 20MG CAP PO SCH (08:28)
[2022-02-21] MEDS: lamoTRIgine 100MG TAB PO SCH (08:28)
[2022-02-21] MEDS: DOCUSATE SODIUM 100MG CAPSULE PO PRN ×2 (08:30→21:41)
[2022-02-21] MEDS ORDERED: ARIPiprazole 10 MG TAB PO ONE (11:30)
[2022-02-21 18:44] VITALS: BP 136/80
[2022-02-21 21:41] VITALS: BP 136/80
[2022-02-21] MEDS: QUEtiapine FUMARATE 100 MG TAB PO SCH (21:41)
[2022-02-21] MEDS: PRAZOSIN 1 MG CAP PO SCH (21:41)
[2022-02-21] MEDS: SENNA 8.6 MG TAB (SENOKOT) PO SCH (21:41)
[2022-02-22 07:12] VITALS: BP 105/56
[2022-02-22] MEDS: FLUTICASONE PROP 0.05% NASAL SPRAY 16 GM (FLONASE) NARES SCH (08:18)
[2022-02-22] MEDS: LORATADINE 10 MG TAB PO SCH (08:18)
[2022-02-22] MEDS: OMEPRAZOLE 20MG CAP PO SCH (08:18)
[2022-02-22] MEDS: buPROPion **XL** TABLET 150MG (WELLBUTRIN XL) PO SCH (08:18)
[2022-02-22] MEDS: GABAPENTIN 300 MG CAP PO SCH (08:18)
[2022-02-22] MEDS: lamoTRIgine 100MG TAB PO SCH (08:18)
[2022-02-22] MEDS ORDERED: ARIPiprazole 10 MG TAB PO ONE (08:35)
[2022-02-22] MEDS ORDERED: OLAN1TAB16 PO (08:38)
[2022-02-22] MEDS ORDERED: QUET100T2 PO (08:38)
[2022-02-22] MEDS ORDERED: MINI1CAP PO (08:38)
[2022-02-22] MEDS ORDERED: GABA-282 PO (08:38)
[2022-02-22] MEDS ORDERED: LAMO100T80 PO (08:38)
[2022-02-22] MEDS ORDERED: BUPR150T12 PO (08:38)
[2022-02-22] MEDS ORDERED: NICO21PAT TD (08:38)
[2022-02-22] MEDS ORDERED: LORA-622 PO (08:40)
[2022-02-22] MEDS ORDERED: OMEP-173 PO (08:40)
[2022-02-22] MEDS: IBUPROFEN 600MG TAB PO PRN (10:35)
== END 2022-02-22 11:16 | disposition home or self-care (01) | DRG 885 ==
LOC: M ED 20:45 → UNDOADMIN 20:46 → M ED INP 20:46 → M ED 02-12 14:11 → M PSY 02-12 14:18
PROVIDERS: ADMIT Student in an Organized Health Care Education/Training Program; ATTEND Student in an Organized Health Care Education/Training Program
DX: F31.60 Bipolar disorder, current episode mixed, unspecified (principal); F43.10 Post-traumatic stress disorder, unspecified; F17.210 Nicotine dependence, cigarettes, uncomplicated; F12.90 Cannabis use, unspecified, uncomplicated; F60.89 Other specific personality disorders; Z88.5 Allergy status to narcotic agent; Z88.8 Allergy status to other drugs, medicaments and biological substances; Z79.899 Other long term (current) drug therapy; K21.9 Gastro-esophageal reflux disease without esophagitis

== ENCOUNTER → 2022-03-14 | Outpatient (REF) | payer MEDICARE, MEDICAID ==
[~2022-03-14] MED LIST changes: +BUPR150T12 PO; +GABA-282 PO; +OLAN1TAB16 PO
[2022-03-14 18:17] LABS: BASO # 0.1 10^3/uL (0.0-0.2); BASO % 0.6 % (0.0-1.0); EOS # 0.3 10^3/uL (0.0-0.5); EOS % 3.1 % (0.0-3.0); HEMATOCRIT 36.4 % (36.0-47.0); HEMOGLOBIN 11.6 g/dl (12.0-15.5); LYMPH # 2.4 10^3/uL (1.5-5.0); LYMPH % 25.2 % (24.0-44.0); MEAN CORPUSCULAR HEMOGLOBIN 29.4 pg (27.0-33.0); MEAN CORPUSCULAR HGB CONC 31.9 g/dl (32.0-36.5); MEAN CORPUSCULAR VOLUME 92.2 fl (80.0-96.0); MONO # 0.8 10^3/uL (0.0-0.8); MONO % 8.3 % (2.0-8.0); NEUTROPHILS % 62.6 % (36.0-66.0); PLATELET COUNT, AUTOMATED 384 10^3/uL (150-450); RED BLOOD COUNT 3.95 10^6/uL (4.00-5.40); WHITE BLOOD COUNT 9.6 10^3/uL (4.0-10.0)
[2022-03-14 19:01] LABS: GC DNA AMPLIFICATION NEGATIVE (NEGATIVE)
[2022-03-14 20:08] LABS: ALBUMIN 3.8 GM/DL (3.2-5.2); ALT/SGPT 16 U/L (12-78); BILIRUBIN,TOTAL 0.2 MG/DL (0.2-1.0); BLOOD UREA NITROGEN 9 MG/DL (7-18); CALCIUM LEVEL 9.6 MG/DL (8.5-10.1); CARBON DIOXIDE LEVEL 26 MEQ/L (21-32); CHLORIDE LEVEL 105 MEQ/L (98-107); CREATININE FOR GFR 0.76 MG/DL (0.55-1.30); GLOMERULAR FILTRATION RATE > 60.0 (>60); GLUCOSE, FASTING 75 MG/DL (70-100); HCG, SERUM QUANTITATIVE 51244 MIU/ML; HEPATITIS B SURFACE ANTIBODY NEGATIVE (POSITIVE); HEPATITIS B SURFACE ANTIGEN NEGATIVE (NEGATIVE); HEPATITIS C VIRUS ABY INDEX < 0.0 INDEX (<0.8); HIV 1&2 SCREEN CENTAUR NEGATIVE (NEGATIVE); POTASSIUM SERUM 4.4 MEQ/L (3.5-5.1); SODIUM LEVEL 137 MEQ/L (136-145); TOTAL PROTEIN 7.4 GM/DL (6.4-8.2)
== END ==
LOC: M SFHCCLAY 14:09
PROVIDERS: ATTEND Family Medicine
DX: A74.9 Chlamydial infection, unspecified (principal); Z20.9 Contact with and (suspected) exposure to unspecified communicable disease

== ENCOUNTER → 2022-06-12 | Outpatient (CLI) | payer MEDICARE, MEDICAID ==
[2022-06-12 16:38] LABS: GC DNA AMPLIFICATION NEGATIVE (NEGATIVE)
== END ==
LOC: M PLALAB 10:37
PROVIDERS: ATTEND Advanced Practice Midwife
DX: Z34.02 Encounter for supervision of normal first pregnancy, second trimester (principal)

== ENCOUNTER → 2022-07-02 | Outpatient (CLI) | payer MEDICARE, MEDICAID ==
[~2022-07-02] MED LIST changes: -BENZ-52 PO; +BENZ1TAB5 PO
== END ==
LOC: M WHC 09:00
PROVIDERS: ATTEND Advanced Practice Midwife
DX: Z34.82 Encounter for supervision of other normal pregnancy, second trimester (principal); Z3A.24 24 weeks gestation of pregnancy

== ENCOUNTER → 2022-08-02 | Outpatient (CLI) | payer MEDICARE, MEDICAID | LOC: M WHC 07:25 | PROVIDERS: ATTEND Specialist | DX: O36.5990 Maternal care for other known or suspected poor fetal growth, unspecified trimester, not applicable or unspecified (principal) ==

== ENCOUNTER → 2022-09-17 | Outpatient (CLI) | payer MEDICARE, MEDICAID ==
[~2022-09-17] MED LIST changes: +FLUT50SP17; +FLUT50SP17 NARES; -FLUTISP; -FLUTISP NARES
[2022-09-17 14:12] LABS: HEMATOCRIT 29.8 % (36.0-47.0); HEMOGLOBIN 9.9 g/dl (12.0-15.5); MEAN CORPUSCULAR HEMOGLOBIN 30.9 pg (27.0-33.0); MEAN CORPUSCULAR HGB CONC 33.2 g/dl (32.0-36.5); MEAN CORPUSCULAR VOLUME 93.1 fl (80.0-96.0); PLATELET COUNT, AUTOMATED 297 10^3/uL (150-450); WHITE BLOOD COUNT 8.6 10^3/uL (4.0-10.0)
== END ==
LOC: M PLALAB 10:14
PROVIDERS: ATTEND Specialist
DX: O36.5930 Maternal care for other known or suspected poor fetal growth, third trimester, not applicable or unspecified (principal)

== ENCOUNTER → 2022-09-23 | Outpatient (REF) | payer MEDICARE, MEDICAID | LOC: M SFHCWAGY 16:57 | PROVIDERS: ATTEND Obstetrics & Gynecology | DX: Z36.85 Encounter for antenatal screening for Streptococcus B (principal) ==

== ENCOUNTER 2022-10-16 15:59 | Inpatient (IN) | payer MEDICARE, MEDICAID ==
[2022-10-16] VITALS (9 sets, daily range): BP systolic 114–169; BP diastolic 65–96
[~2022-10-16] VITALS: Ht 162.6 cm; Wt 70.4 kg
[2022-10-16] MEDS ORDERED: [UNRECOGNIZED DRUG - CODE] PO ×2 (16:27)
[2022-10-16] MEDS ORDERED: HOME MED LIST COMPLETE! XX SCH (16:30)
[2022-10-16] MEDS ORDERED: LACTATED RINGER'S 1000 ML IV STA (16:47)
[2022-10-16] MEDS ORDERED: OXYTOCIN DRIP 30 UNITS in IV 1 EA IV PRN (16:50)
[2022-10-16] MEDS ORDERED: LR 1,000 ML IV SCH (16:50)
[2022-10-16] MEDS ORDERED: ceFAZolin SOD 2 GM in IV 1 EA IV ONE (16:50)
[2022-10-16] MEDS ORDERED: OXYTOCIN INJ 10UNITS/ML 1ML VIAL IM PRN (16:50)
[2022-10-16] MEDS ORDERED: METHYLERGONOVINE MALEATE 0.2MG/ML 1ML VIAL IM PRN (16:50)
[2022-10-16] MEDS ORDERED: CARBOPROST TROMETHAMINE 250 MCG/ML AMP IM PRN (16:50)
[2022-10-16] MEDS ORDERED: TRANEXAMIC ACID INJection 1,000 MG in NS 100 ML IV PRN (16:50)
[2022-10-16] MEDS ORDERED: BICITRA 30ML SOLN UDC PO ONE (16:50)
[2022-10-16] MEDS ORDERED: AZITHROMYCIN INJ 500 MG, VIAL MATE ADAPTER 1 EACH in NS 250 ML IV ONE (16:50)
[2022-10-16] MEDS ORDERED: LIDOCAINE 2% INJ 100 MG/5 ML SYRINGE As Ordered ONE (17:08)
[2022-10-16] MEDS ORDERED: SUCCINYLCHOLINE 100MG/5ML SYRINGE As Ordered ONE (17:08)
[2022-10-16] MEDS ORDERED: propofoL 200 MG/20 ML VIAL As Ordered ONE (17:08)
[2022-10-16 17:13] LABS: HEMATOCRIT 31.4 % (36.0-47.0); MEAN CORPUSCULAR HEMOGLOBIN 31.5 pg (27.0-33.0); PLATELET COUNT, AUTOMATED 262 10^3/uL (150-450); RED BLOOD COUNT 3.49 10^6/uL (4.00-5.40); WHITE BLOOD COUNT 13.2 10^3/uL (4.0-10.0)
[2022-10-16 17:42] LABS: INR 0.89; PROTHROMBIN TIME 12.2 SECONDS (12.5-14.5)
[2022-10-16 17:43] LABS: PARTIAL THROMBOPLASTIN TIME 29.3 SECONDS (24.8-34.2)
[2022-10-16] MEDS ORDERED: ACETAMINOPHEN 1000MG 100ML IV BAG As Ordered ONE (17:47)
[2022-10-16] MEDS ORDERED: KETOROLAC 60MG 2ML VIAL As Ordered ONE (17:49)
[2022-10-16] MEDS ORDERED: ONDANSETRON 4MG 2ML VIAL As Ordered ONE (17:49)
[2022-10-16] MEDS ORDERED: METOCLOPRAMIDE INJ 10MG/2ML VIAL As Ordered ONE (17:49)
[2022-10-16] MEDS ORDERED: ROCURONIUM BROMIDE 50MG/5ML VIAL As Ordered ONE (18:01)
[2022-10-16 18:02] LABS: CORD GAS ABE V -6.9; CORD GAS HCO3 V 22.1 MMOL/L; CORD GAS O2 SAT V 64.4 %; CORD GAS PCO2 V 58.1 mmHg; CORD GAS PH V 7.199 UNITS; CORD GAS PO2 V 28.5 mmHg; CORD GAS SBC V 18.2 MMOL/L; CORD GAS TCO2 V 23.9 MMOL/L
[2022-10-16 18:04] LABS: CORD GAS ABE A -6.4; CORD GAS HCO3 A 22.7 MMOL/L; CORD GAS PCO2 A 60.3 mmHg; CORD GAS PH A 7.194 UNITS; CORD GAS PO2 A 11.3 mmHg; CORD GAS SBC A 17.5 MMOL/L; CORD GAS TCO2 A 24.6 MMOL/L
[2022-10-16] MEDS ORDERED: fentaNYL 100 MCG/2 ML INJECTION As Ordered ONE (18:04)
[2022-10-16] MEDS ORDERED: ePHEDrine SULFATE 25 MG/5 ML(5MG/ML) SYRINGE As Ordered ONE (18:21)
[2022-10-16] MEDS ORDERED: OXYTOCIN 30UNITS IN 0.9% NaCl 500ML IV BAG As Ordered ONE (18:36)
[2022-10-16] MEDS ORDERED: RHOGAM 300MCG (1500IU) INJ IM SCH (18:55)
[2022-10-16] MEDS ORDERED: OXYTOCIN DRIP 30 UNITS in IV 1 EA IV SCH (18:55)
[2022-10-16] MEDS ORDERED: oxyCODONE 5MG TAB PO PRN ×2 (18:55)
[2022-10-16] MEDS: ACETAMINOPHEN 500 MG TAB PO SCH (18:55)
[2022-10-16 19:43] LABS: HEMATOCRIT 37.8 % (36.0-47.0); HEMOGLOBIN 12.8 g/dl (12.0-15.5); MEAN CORPUSCULAR HEMOGLOBIN 31.2 pg (27.0-33.0); MEAN CORPUSCULAR HGB CONC 33.9 g/dl (32.0-36.5); MEAN CORPUSCULAR VOLUME 92.2 fl (80.0-96.0); PLATELET COUNT, AUTOMATED 245 10^3/uL (150-450); WHITE BLOOD COUNT 23.3 10^3/uL (4.0-10.0)
[2022-10-16 20:02] LABS: INR 0.77; PROTHROMBIN TIME 10.9 SECONDS (12.5-14.5)
[2022-10-16 20:03] LABS: PARTIAL THROMBOPLASTIN TIME 30.3 SECONDS (24.8-34.2)
[2022-10-16] MEDS: LR 1,000 ML IV SCH (20:45)
[2022-10-16] MEDS ORDERED: PILL CUTTER 1 EACH XX PRN (20:45)
[2022-10-16] MEDS: TRANYLCYPROMINE SULFATE 10 MG PO SCH (22:06)
[2022-10-16] MEDS: lamoTRIgine 100MG TAB PO SCH (22:07)
[2022-10-17] MEDS: KETOROLAC 30 MG/ML 1ML VIAL IV SCH ×3 (00:07→13:22)
[2022-10-17] MEDS: ACETAMINOPHEN 500 MG TAB PO SCH ×4 (00:57→18:47)
[2022-10-17 02:00] VITALS: BP 137/88
[2022-10-17] MEDS: LR 1,000 ML IV SCH (05:14)
[2022-10-17 06:00] VITALS: BP 128/82
[2022-10-17 07:36] LABS: HEMATOCRIT 32.8 % (36.0-47.0); MEAN CORPUSCULAR HGB CONC 33.5 g/dl (32.0-36.5); MEAN CORPUSCULAR VOLUME 92.4 fl (80.0-96.0); PLATELET COUNT, AUTOMATED 264 10^3/uL (150-450); RED BLOOD COUNT 3.55 10^6/uL (4.00-5.40); WHITE BLOOD COUNT 19.8 10^3/uL (4.0-10.0)
[2022-10-17] MEDS: PRENATAL VITAMINS CHEWABLE TABLET PO SCH (08:49)
[2022-10-17] MEDS: lamoTRIgine 100MG TAB PO SCH ×2 (08:50→20:43)
[2022-10-17] MEDS: TRANYLCYPROMINE SULFATE 10 MG PO SCH ×2 (08:52→20:44)
[2022-10-17 14:00] VITALS: BP 130/65
[2022-10-17 14:38] VITALS: BP 123/73
[2022-10-17 18:13] VITALS: BP 100/68
[2022-10-17] MEDS: IBUPROFEN 600MG TAB PO SCH (20:43)
[2022-10-17 22:00] VITALS: BP 139/79
[2022-10-18] MEDS: ACETAMINOPHEN 500 MG TAB PO SCH ×4 (01:32→19:46)
[2022-10-18] MEDS: IBUPROFEN 600MG TAB PO SCH ×4 (01:32→19:47)
[2022-10-18 02:00] VITALS: BP 125/80
[2022-10-18] MEDS: SIMETHICONE 80MG CHEW TAB PO PRN ×3 (02:07→23:41)
[2022-10-18 06:00] VITALS: BP 124/56
[2022-10-18] MEDS: PRENATAL VITAMINS CHEWABLE TABLET PO SCH (07:48)
[2022-10-18] MEDS: lamoTRIgine 100MG TAB PO SCH ×2 (08:02→21:52)
[2022-10-18] MEDS: TRANYLCYPROMINE SULFATE 10 MG PO SCH ×2 (08:03→21:55)
[2022-10-18] MEDS ORDERED: MEASLES,MUMPS,RUBELLA VACCINE INJ (MMR-II) SC.IMMUN ONE (09:00)
[2022-10-18 10:00] VITALS: BP 126/58
[2022-10-18 14:00] VITALS: BP 122/58
[2022-10-18 18:00] VITALS: BP 106/53
[2022-10-18] MEDS: DOCUSATE SODIUM 100MG CAPSULE PO PRN (21:53)
[2022-10-19] MEDS: ACETAMINOPHEN 500 MG TAB PO SCH ×4 (01:05→18:55)
[2022-10-19] MEDS: IBUPROFEN 600MG TAB PO SCH ×4 (01:05→20:19)
[2022-10-19 06:00] VITALS: BP 130/80
[2022-10-19] MEDS: PRENATAL VITAMINS CHEWABLE TABLET PO SCH (08:12)
[2022-10-19] MEDS: lamoTRIgine 100MG TAB PO SCH ×2 (08:48→22:12)
[2022-10-19] MEDS: TRANYLCYPROMINE SULFATE 10 MG PO SCH ×2 (08:49→22:42)
[2022-10-19] MEDS ORDERED: IBUP-1022 PO (10:54)
[2022-10-19] MEDS ORDERED: OXYC-517 PO (10:54)
[2022-10-19 17:30] VITALS: BP 131/82
[2022-10-19 18:00] VITALS: BP 135/83
[2022-10-19 19:40] VITALS: BP 124/63
[2022-10-19] MEDS: DOCUSATE SODIUM 100MG CAPSULE PO PRN (20:19)
== END 2022-10-19 22:46 | disposition home or self-care (01) | DRG 788 ==
LOC: M LDO 15:59 → M LDI 16:52 → M OBS 20:49
PROVIDERS: ADMIT Advanced Practice Midwife; ATTEND Advanced Practice Midwife
PROC: 10D00Z1 Extraction of Products of Conception, Low, Open Approach (ICD-10-PCS; principal; 2022-10-16 17:30)
DX: O45.8X9 Other premature separation of placenta, unspecified trimester (principal); Z37.0 Single live birth; Z3A.39 39 weeks gestation of pregnancy; Z87.891 Personal history of nicotine dependence; Z88.5 Allergy status to narcotic agent; Z88.8 Allergy status to other drugs, medicaments and biological substances; Z79.899 Other long term (current) drug therapy; O99.824 Streptococcus B carrier state complicating childbirth; O76 Abnormality in fetal heart rate and rhythm complicating labor and delivery

== ENCOUNTER 2022-10-20 17:02 | Emergency (ER) | payer MEDICARE, MEDICAID ==
[~2022-10-20] VITALS: Ht 162.6 cm; Wt 68.4 kg
[~2022-10-20 17:02] MED LIST changes: +IBUP-1022 PO; +OXYC-517 PO
[2022-10-20 17:03] VITALS: BP 131/79
[2022-10-21] MEDS ORDERED: FIOR1CAP PO (08:16)
== END 2022-10-20 17:11 | disposition left against medical advice (07) ==
LOC: M ED 17:02
DX: Z53.21 Procedure and treatment not carried out due to patient leaving prior to being seen by health care provider (principal)

== ENCOUNTER 2022-10-21 04:34 | Emergency (ER) | payer MEDICARE, MEDICAID ==
[~2022-10-21] VITALS: Ht 162.6 cm; Wt 66.0 kg
[2022-10-21] MEDS ORDERED: FIORICET TAB PO ONE (08:10)
[2022-10-21] MEDS ORDERED: FIOR1CAP PO (08:16)
[2022-10-21 08:30] VITALS: BP 122/68
== END 2022-10-21 08:30 | disposition home or self-care (01) ==
LOC: M ED 04:34
DX: O89.4 Spinal and epidural anesthesia-induced headache during the puerperium (principal); Z88.5 Allergy status to narcotic agent; Z88.8 Allergy status to other drugs, medicaments and biological substances; Z79.1 Long term (current) use of non-steroidal anti-inflammatories (NSAID); Z79.83 Long term (current) use of bisphosphonates; Z79.899 Other long term (current) drug therapy

== ENCOUNTER 2022-12-29 13:42 | Inpatient (IN) | payer MEDICARE, MEDICAID ==
[~2022-12-29] VITALS: Ht 162.6 cm; Wt 54.5 kg
[~2022-12-29 13:42] MED LIST changes: +FIOR1CAP PO; +SENN-111 PO; -SENN18TA PO
[2022-12-29] MEDS ORDERED: OLANZapine INTRAMUSCULAR 10MG VIAL IM ONE (14:20)
[2022-12-29] MEDS ORDERED: LORazepam 2 MG/ML 1ML VIAL IM STA (14:20)
[2022-12-29 14:55] LABS: HEMATOCRIT 39.9 % (36.0-47.0); HEMOGLOBIN 13.1 g/dl (12.0-15.5); MEAN CORPUSCULAR HEMOGLOBIN 30.3 pg (27.0-33.0); MEAN CORPUSCULAR HGB CONC 32.8 g/dl (32.0-36.5); MEAN CORPUSCULAR VOLUME 92.4 fl (80.0-96.0); PLATELET COUNT, AUTOMATED 418 10^3/uL (150-450); RED BLOOD COUNT 4.32 10^6/uL (4.00-5.40); WHITE BLOOD COUNT 9.5 10^3/uL (4.0-10.0)
[2022-12-29 15:13] LABS: AMPHETAMINES LEVEL URINE NEGATIVE (NEGATIVE); BARBITURATES URINE NEGATIVE (NEGATIVE); BENZODIAZEPINES URINE NEGATIVE (NEGATIVE); COCAINE METABOLITE URINE NEGATIVE (NEGATIVE); METHADONE URINE NEGATIVE (NEGATIVE)
[2022-12-29 15:14] LABS: CANNABINOIDS URINE NEGATIVE (NEGATIVE); OPIATES URINE NEGATIVE (NEGATIVE); PHENCYCLIDINE URINE NEGATIVE (NEGATIVE)
[2022-12-29 15:16] LABS: ETHYL ALCOHOL (ETHANOL) < 0.003 % (0.000-0.010)
[2022-12-29 15:17] LABS: ACETAMINOPHEN LEVEL < 2.0 UG/ML (10.0-20.0)
[2022-12-29 15:18] LABS: ALBUMIN 4.8 G/DL (3.2-5.2); ALKALINE PHOSPHATASE 124 U/L (46-116); ALT/SGPT 55 U/L (7.0-40); AST/SGOT 38 U/L (<34); BILIRUBIN,DIRECT 0.1 MG/DL (<0.4); BILIRUBIN,TOTAL 0.4 MG/DL (0.3-1.2); BLOOD UREA NITROGEN 19 MG/DL (9-23); CALCIUM LEVEL 10.2 MG/DL (8.5-10.1); CARBON DIOXIDE LEVEL 26 MMOL/L (20-31); CHLORIDE LEVEL 102 MMOL/L (98-107); CREATININE FOR GFR 0.94 MG/DL (0.55-1.30); GLOMERULAR FILTRATION RATE > 60.0 (>60); GLUCOSE, FASTING 102 MG/DL (60-100); POTASSIUM SERUM 3.8 MMOL/L (3.5-5.1); SALICYLATE LEVEL < 3.0 MG/DL (<30); SODIUM LEVEL 141 MMOL/L (136-145); TOTAL PROTEIN 8.6 G/DL (5.7-8.2)
[2022-12-29 15:20] LABS: THYROID STIMULATING HORMONE 3.271 uIU/ML (0.55-4.78)
[2022-12-29 15:25] LABS: HCG, SERUM QUALITATIVE NEGATIVE (NEGATIVE)
[2022-12-29 18:56] LABS: LITHIUM LEVEL < 0.10 MMOL/L (1.0-1.20)
[2022-12-29] MEDS ORDERED: LAMO150T3 PO (20:43)
[2022-12-29] MEDS ORDERED: HOME MED LIST COMPLETE! XX SCH (20:45)
[2022-12-30] MEDS ORDERED: OLANZapine INTRAMUSCULAR 10MG VIAL IM ONE (00:50)
[2022-12-30] MEDS ORDERED: ACETAMINOPHEN TAB 650MG DOSE (2X325MG) PO PRN (11:05)
[2022-12-30] MEDS ORDERED: MAALOX 30 ML SUSP *UDC PO PRN (11:05)
[2022-12-30] MEDS ORDERED: traZODone 50 MG TAB PO PRN (11:05)
[2022-12-30] MEDS ORDERED: MOM 30ML SUSPENSION UDC PO PRN (11:05)
[2022-12-30] MEDS ORDERED: diphenhydrAMINE 25MG CAP PO PRN (11:05)
[2022-12-30] MEDS ORDERED: IBUPROFEN 400MG TAB PO PRN (11:05)
[2022-12-30] MEDS ORDERED: LORazepam 2 MG TAB PO PRN (11:05)
[2022-12-30 15:41] VITALS: BP 139/93; TEMP 98.3; O2SAT 100
[2022-12-31 06:30] VITALS: BP 138/96; TEMP 97.7; O2SAT 99
[2022-12-31] MEDS ORDERED: OLANZapine ORAL DISINTEGRATING TAB 5MG PO ONE (09:40)
[2022-12-31] MEDS ORDERED: OLANZapine ORAL DISINTEGRATING TAB 5MG PO PRN (09:40)
[2022-12-31 16:07] VITALS: BP 133/87; TEMP 98.8; O2SAT 98
[2023-01-01 06:30] VITALS: BP 139/73; TEMP 98.4; O2SAT 97
[2023-01-01] MEDS ORDERED: OLAN2.5T25 PO (08:49)
[2023-01-01] MEDS ORDERED: LAMO25TA4 PO (08:56)
[2023-01-01] MEDS ORDERED: LAMO100T80 PO (08:59)
[2023-01-01] MEDS ORDERED: OLANZapine 2.5MG TABLET PO SCH (09:00)
[2023-01-01] MEDS ORDERED: lamoTRIgine 25MG TAB PO SCH (09:00)
[2023-01-01] MEDS ORDERED: lamoTRIgine 100MG TAB PO SCH (09:00)
[2023-01-01] MEDS ORDERED: SENNA 8.6 MG TAB (SENOKOT) PO SCH (21:00)
== END 2023-01-01 10:38 | disposition home or self-care (01) | DRG 885 ==
LOC: M ED 13:42 → M ED INP 12-30 11:03 → M PSY 12-30 15:37
PROVIDERS: ADMIT Student in an Organized Health Care Education/Training Program; ATTEND Student in an Organized Health Care Education/Training Program
DX: F31.60 Bipolar disorder, current episode mixed, unspecified (principal); F43.10 Post-traumatic stress disorder, unspecified; K21.9 Gastro-esophageal reflux disease without esophagitis; F17.200 Nicotine dependence, unspecified, uncomplicated; M54.9 Dorsalgia, unspecified; G89.29 Other chronic pain; Z56.0 Unemployment, unspecified; Z91.51 Personal history of suicidal behavior; Z62.811 Personal history of psychological abuse in childhood; Z62.812 Personal history of neglect in childhood; Z79.899 Other long term (current) drug therapy; Z88.5 Allergy status to narcotic agent; Z88.8 Allergy status to other drugs, medicaments and biological substances; Z20.822 Contact with and (suspected) exposure to COVID-19; Z86.19 Personal history of other infectious and parasitic diseases

== ENCOUNTER 2023-01-07 02:55 | Inpatient (IN) | payer MEDICARE, MEDICAID ==
[~2023-01-07] VITALS: Ht 162.6 cm; Wt 56.8 kg
[2023-01-07] MEDS ORDERED: OLANZapine INTRAMUSCULAR 10MG VIAL IM ONE (03:05)
[2023-01-07 04:23] LABS: AMPHETAMINES LEVEL URINE NEGATIVE (NEGATIVE); BARBITURATES URINE NEGATIVE (NEGATIVE); BENZODIAZEPINES URINE NEGATIVE (NEGATIVE); CANNABINOIDS URINE NEGATIVE (NEGATIVE); COCAINE METABOLITE URINE NEGATIVE (NEGATIVE); METHADONE URINE NEGATIVE (NEGATIVE); OPIATES URINE NEGATIVE (NEGATIVE); PHENCYCLIDINE URINE NEGATIVE (NEGATIVE)
[2023-01-07 05:29] LABS: ETHYL ALCOHOL (ETHANOL) < 0.003 % (0.000-0.010)
[2023-01-07 05:30] LABS: ACETAMINOPHEN LEVEL < 2.0 UG/ML (10.0-20.0)
[2023-01-07 05:31] LABS: ALBUMIN 3.4 G/DL (3.2-5.2); ALKALINE PHOSPHATASE 85 U/L (46-116); ALT/SGPT 26 U/L (7.0-40); AST/SGOT 14 U/L (<34); BILIRUBIN,DIRECT 0.1 MG/DL (<0.4); BILIRUBIN,TOTAL 0.3 MG/DL (0.3-1.2); BLOOD UREA NITROGEN 18 MG/DL (9-23); CALCIUM LEVEL 9.4 MG/DL (8.5-10.1); CARBON DIOXIDE LEVEL 31 MMOL/L (20-31); CHLORIDE LEVEL 107 MMOL/L (98-107); CREATININE FOR GFR 0.88 MG/DL (0.55-1.30); GLOMERULAR FILTRATION RATE > 60.0 (>60); GLUCOSE, FASTING 98 MG/DL (60-100); SALICYLATE LEVEL < 3.0 MG/DL (<30); SODIUM LEVEL 144 MMOL/L (136-145); TOTAL PROTEIN 6.7 G/DL (5.7-8.2)
[2023-01-07 05:32] LABS: HEMATOCRIT 32.5 % (36.0-47.0); HEMOGLOBIN 10.6 g/dl (12.0-15.5); MEAN CORPUSCULAR HEMOGLOBIN 30.9 pg (27.0-33.0); MEAN CORPUSCULAR HGB CONC 32.6 g/dl (32.0-36.5); MEAN CORPUSCULAR VOLUME 94.8 fl (80.0-96.0); PLATELET COUNT, AUTOMATED 343 10^3/uL (150-450); RED BLOOD COUNT 3.43 10^6/uL (4.00-5.40); WHITE BLOOD COUNT 8.8 10^3/uL (4.0-10.0)
[2023-01-07] MEDS ORDERED: LAMO150T3 PO (05:34)
[2023-01-07] MEDS ORDERED: OLAN2.5T25 PO (05:34)
[2023-01-07] MEDS ORDERED: SENN8.6T58 PO (05:34)
[2023-01-07] MEDS ORDERED: TRAN10TA PO ×2 (05:34)
[2023-01-07] MEDS ORDERED: PATIENT COMMENT (05:35)
[2023-01-07] MEDS ORDERED: HOME MED LIST COMPLETE! XX SCH (05:40)
[2023-01-07 06:44] LABS: HCG, SERUM QUALITATIVE NEGATIVE (NEGATIVE)
[2023-01-07] MEDS ORDERED: SENNA 8.6 MG TAB (SENOKOT) PO PRN (08:10)
[2023-01-07] MEDS ORDERED: lamoTRIgine 100MG TAB PO SCH (09:00)
[2023-01-07] MEDS ORDERED: OLANZapine 2.5MG TABLET PO SCH (09:00)
[2023-01-07] MEDS ORDERED: IBUPROFEN 400MG TAB PO ONE (11:50)
[2023-01-07] MEDS ORDERED: diphenhydrAMINE 25MG CAP PO PRN (13:25)
[2023-01-07] MEDS ORDERED: traZODone 50 MG TAB PO PRN (13:25)
[2023-01-07] MEDS ORDERED: MAALOX 30 ML SUSP *UDC PO PRN (13:25)
[2023-01-07] MEDS ORDERED: MOM 30ML SUSPENSION UDC PO PRN (13:25)
[2023-01-07 16:34] VITALS: BP 130/80; TEMP 97.6; O2SAT 97
[2023-01-07] MEDS: ACETAMINOPHEN TAB 650MG DOSE (2X325MG) PO PRN (16:45)
[2023-01-08] MEDS: ACETAMINOPHEN TAB 650MG DOSE (2X325MG) PO PRN (05:24)
[2023-01-08 06:17] VITALS: BP 121/85; TEMP 98.1; O2SAT 100
[2023-01-08] MEDS: OLANZapine 2.5MG TABLET PO SCH (09:00)
[2023-01-08] MEDS: lamoTRIgine 100MG TAB PO SCH ×2 (09:05→20:15)
[2023-01-08] MEDS: lamoTRIgine 25MG TAB PO SCH ×2 (09:05→20:15)
[2023-01-08] MEDS: IBUPROFEN 400MG TAB PO PRN (09:43)
[2023-01-08] MEDS ORDERED: LORazepam 2 MG TAB PO ONE (09:45)
[2023-01-08] MEDS ORDERED: diphenhydrAMINE 50MG CAP PO ONE (09:45)
[2023-01-08] MEDS: TRANYLCYPROMINE 10 MG PO SCH ×2 (13:25→20:16)
[2023-01-08 17:21] VITALS: BP 148/66; TEMP 97.6; O2SAT 99
[2023-01-08] MEDS: OLANZapine ORAL DISINTEGRATING TAB 5MG PO PRN (20:15)
[2023-01-08] MEDS: SENNA 8.6 MG TAB (SENOKOT) PO SCH (20:15)
[2023-01-09] MEDS: IBUPROFEN 400MG TAB PO PRN ×2 (06:45→20:44)
[2023-01-09] MEDS: lamoTRIgine 100MG TAB PO SCH ×2 (07:55→20:41)
[2023-01-09] MEDS: lamoTRIgine 25MG TAB PO SCH ×2 (07:55→20:42)
[2023-01-09] MEDS: TRANYLCYPROMINE 10 MG PO SCH ×2 (07:56→20:44)
[2023-01-09] MEDS: OLANZapine 2.5MG TABLET PO SCH (07:56)
[2023-01-09 12:10] LABS: HIV 1&2 SCREEN NEGATIVE (NEGATIVE)
[2023-01-09 12:58] LABS: GC DNA AMPLIFICATION NEGATIVE (NEGATIVE)
[2023-01-09 17:20] VITALS: BP 126/72; TEMP 96.7; O2SAT 99
[2023-01-09] MEDS: SENNA 8.6 MG TAB (SENOKOT) PO SCH (20:42)
[2023-01-10 07:04] VITALS: BP 124/75; TEMP 97.1; O2SAT 99
[2023-01-10] MEDS: lamoTRIgine 100MG TAB PO SCH ×2 (08:20→21:12)
[2023-01-10] MEDS: lamoTRIgine 25MG TAB PO SCH ×2 (08:20→21:13)
[2023-01-10] MEDS: ACETAMINOPHEN TAB 650MG DOSE (2X325MG) PO PRN (08:20)
[2023-01-10] MEDS: TRANYLCYPROMINE 10 MG PO SCH ×2 (08:21→20:36)
[2023-01-10] MEDS: OLANZapine 2.5MG TABLET PO SCH (08:23)
[2023-01-10] MEDS: IBUPROFEN 400MG TAB PO PRN (16:36)
[2023-01-10 18:47] VITALS: BP 139/77; TEMP 98; O2SAT 100
[2023-01-10] MEDS: SENNA 8.6 MG TAB (SENOKOT) PO SCH (21:13)
[2023-01-11 06:13] VITALS: BP 132/73; TEMP 97.8; O2SAT 99
[2023-01-11] MEDS: lamoTRIgine 100MG TAB PO SCH ×2 (08:23→21:20)
[2023-01-11] MEDS: lamoTRIgine 25MG TAB PO SCH ×2 (08:23→21:21)
[2023-01-11] MEDS: TRANYLCYPROMINE 10 MG PO SCH ×2 (08:24→21:19)
[2023-01-11] MEDS: OLANZapine 2.5MG TABLET PO SCH (08:25)
[2023-01-11] MEDS: ACETAMINOPHEN TAB 650MG DOSE (2X325MG) PO PRN (08:31)
[2023-01-11] MEDS: IBUPROFEN 400MG TAB PO PRN (11:07)
[2023-01-11] MEDS: OLANZapine ORAL DISINTEGRATING TAB 5MG PO PRN (16:03)
[2023-01-11 18:40] VITALS: BP 125/81; TEMP 97.3; O2SAT 100
[2023-01-11] MEDS: SENNA 8.6 MG TAB (SENOKOT) PO SCH (21:20)
[2023-01-12 07:05] VITALS: BP 129/65; TEMP 97.9; O2SAT 97
[2023-01-12] MEDS: lamoTRIgine 25MG TAB PO SCH ×2 (08:32→21:04)
[2023-01-12] MEDS: OLANZapine 2.5MG TABLET PO SCH (08:32)
[2023-01-12] MEDS: lamoTRIgine 100MG TAB PO SCH ×2 (08:33→21:04)
[2023-01-12] MEDS: IBUPROFEN 400MG TAB PO PRN (08:34)
[2023-01-12] MEDS: TRANYLCYPROMINE 10 MG PO SCH ×2 (08:34→21:04)
[2023-01-12] MEDS: SENNA 8.6 MG TAB (SENOKOT) PO SCH (21:04)
[2023-01-13 06:42] VITALS: BP 124/62; TEMP 97.6; O2SAT 98
[2023-01-13] MEDS: OLANZapine 2.5MG TABLET PO SCH (09:00)
[2023-01-13] MEDS: lamoTRIgine 25MG TAB PO SCH ×2 (09:15→20:05)
[2023-01-13] MEDS: lamoTRIgine 100MG TAB PO SCH ×2 (09:15→20:05)
[2023-01-13] MEDS: TRANYLCYPROMINE 10 MG PO SCH ×2 (09:15→20:04)
[2023-01-13 18:16] VITALS: BP 103/67; TEMP 97.9; O2SAT 98
[2023-01-13] MEDS: SENNA 8.6 MG TAB (SENOKOT) PO SCH (20:05)
[2023-01-14 06:45] VITALS: BP 132/72; TEMP 96.4; O2SAT 100
[2023-01-14] MEDS: OLANZapine 2.5MG TABLET PO SCH ×2 (08:21→21:50)
[2023-01-14] MEDS: TRANYLCYPROMINE 10 MG PO SCH ×2 (08:21→21:49)
[2023-01-14] MEDS: lamoTRIgine 25MG TAB PO SCH ×2 (08:21→21:49)
[2023-01-14] MEDS: lamoTRIgine 100MG TAB PO SCH ×2 (08:21→21:49)
[2023-01-14] MEDS: SENNA 8.6 MG TAB (SENOKOT) PO SCH (21:49)
[2023-01-15 06:55] VITALS: BP 119/74; TEMP 98.1; O2SAT 100
[2023-01-15] MEDS: TRANYLCYPROMINE 10 MG PO SCH ×2 (09:45→21:33)
[2023-01-15] MEDS: lamoTRIgine 25MG TAB PO SCH ×2 (09:46→21:34)
[2023-01-15] MEDS: lamoTRIgine 100MG TAB PO SCH ×2 (09:46→21:34)
[2023-01-15] MEDS: OLANZapine ORAL DISINTEGRATING TAB 5MG PO PRN (19:21)
[2023-01-15] MEDS: SENNA 8.6 MG TAB (SENOKOT) PO SCH (21:34)
[2023-01-15] MEDS: OLANZapine 2.5MG TABLET PO SCH (21:34)
[2023-01-16 06:04] VITALS: BP 100/60; TEMP 97.4; O2SAT 97
[2023-01-16] MEDS: TRANYLCYPROMINE 10 MG PO SCH ×2 (09:20→21:32)
[2023-01-16] MEDS: lamoTRIgine 100MG TAB PO SCH ×2 (09:20→21:31)
[2023-01-16] MEDS: lamoTRIgine 25MG TAB PO SCH ×2 (09:21→21:31)
[2023-01-16 18:00] VITALS: BP 111/71; TEMP 97.2
[2023-01-16] MEDS: OLANZapine ORAL DISINTEGRATING TAB 5MG PO PRN (18:03)
[2023-01-16] MEDS: SENNA 8.6 MG TAB (SENOKOT) PO SCH (21:31)
[2023-01-16] MEDS: OLANZapine 2.5MG TABLET PO SCH (21:33)
[2023-01-17] MEDS: lamoTRIgine 25MG TAB PO SCH ×2 (08:34→20:08)
[2023-01-17] MEDS: lamoTRIgine 100MG TAB PO SCH ×2 (08:34→20:07)
[2023-01-17] MEDS: TRANYLCYPROMINE 10 MG PO SCH ×2 (08:35→20:08)
[2023-01-17] MEDS: OLANZapine ORAL DISINTEGRATING TAB 5MG PO PRN (17:13)
[2023-01-17 17:42] VITALS: BP 99/60; TEMP 97.4; O2SAT 95
[2023-01-17] MEDS: SENNA 8.6 MG TAB (SENOKOT) PO SCH (20:07)
[2023-01-17] MEDS: OLANZapine 2.5MG TABLET PO SCH (20:07)
[2023-01-18 06:43] VITALS: BP 92/54; TEMP 97.5; O2SAT 100
[2023-01-18] MEDS: TRANYLCYPROMINE 10 MG PO SCH ×2 (09:00→20:29)
[2023-01-18] MEDS: lamoTRIgine 25MG TAB PO SCH ×2 (09:43→20:30)
[2023-01-18] MEDS: lamoTRIgine 100MG TAB PO SCH ×2 (09:43→20:30)
[2023-01-18] MEDS: OLANZapine ORAL DISINTEGRATING TAB 5MG PO PRN (20:30)
[2023-01-18] MEDS: SENNA 8.6 MG TAB (SENOKOT) PO SCH (20:30)
[2023-01-18] MEDS: OLANZapine 2.5MG TABLET PO SCH (20:30)
[2023-01-19] MEDS: lamoTRIgine 25MG TAB PO SCH ×2 (08:48→20:20)
[2023-01-19] MEDS: lamoTRIgine 100MG TAB PO SCH ×2 (08:48→20:20)
[2023-01-19] MEDS: TRANYLCYPROMINE 10 MG PO SCH ×2 (08:49→20:21)
[2023-01-19 17:11] VITALS: BP 91/55; TEMP 98.5
[2023-01-19] MEDS: SENNA 8.6 MG TAB (SENOKOT) PO SCH (20:20)
[2023-01-19] MEDS: OLANZapine 2.5MG TABLET PO SCH (20:20)
[2023-01-19] MEDS: OLANZapine ORAL DISINTEGRATING TAB 5MG PO PRN (22:35)
[2023-01-20] MEDS: lamoTRIgine 25MG TAB PO SCH (08:40)
[2023-01-20] MEDS: lamoTRIgine 100MG TAB PO SCH (08:40)
[2023-01-20] MEDS: TRANYLCYPROMINE 10 MG PO SCH (08:41)
[2023-01-20] MEDS ORDERED: TRAZ-252 PO (12:37)
[2023-01-20] MEDS ORDERED: OLAN2.5T25 PO (12:37)
[2023-01-20] MEDS ORDERED: LAMI25TA PO (12:37)
[2023-01-20] MEDS ORDERED: LAMO100T80 PO (12:37)
== END 2023-01-20 14:53 | disposition home or self-care (01) | DRG 885 ==
LOC: M ED 02:55 → M ED INP 13:22 → M PSY 16:27
PROVIDERS: ADMIT Student in an Organized Health Care Education/Training Program; ATTEND Student in an Organized Health Care Education/Training Program
DX: F31.9 Bipolar disorder, unspecified (principal); F12.10 Cannabis abuse, uncomplicated; F50.9 Eating disorder, unspecified; K21.9 Gastro-esophageal reflux disease without esophagitis; G89.29 Other chronic pain; M54.9 Dorsalgia, unspecified; F17.200 Nicotine dependence, unspecified, uncomplicated; Z98.1 Arthrodesis status; Z62.812 Personal history of neglect in childhood; Z79.899 Other long term (current) drug therapy; Z88.5 Allergy status to narcotic agent; Z88.8 Allergy status to other drugs, medicaments and biological substances; Z59.00 Homelessness unspecified; Z91.410 Personal history of adult physical and sexual abuse

== ENCOUNTER → 2023-01-28 | Outpatient (REF) | payer MEDICARE, MEDICAID ==
[~2023-01-28] MED LIST changes: +SENN8.6T58 PO; +TRAZ-252 PO
== END ==
LOC: M PLALAB 09:37
PROVIDERS: ATTEND Advanced Practice Midwife
DX: Z12.4 Encounter for screening for malignant neoplasm of cervix (principal)
CPT/HCPCS: 87624; G0123

== ENCOUNTER → 2023-02-04 | Outpatient (CLI) | payer MEDICARE, MEDICAID ==
[2023-02-04 11:02] LABS: ALBUMIN 3.8 G/DL (3.2-5.2); ALKALINE PHOSPHATASE 96 U/L (46-116); ALT/SGPT 28 U/L (7.0-40); AST/SGOT 15 U/L (<34); BILIRUBIN,TOTAL 0.3 MG/DL (0.3-1.2); BLOOD UREA NITROGEN 17 MG/DL (9-23); CALCIUM LEVEL 8.8 MG/DL (8.5-10.1); CARBON DIOXIDE LEVEL 30 MMOL/L (20-31); CHLORIDE LEVEL 103 MMOL/L (98-107); CREATININE FOR GFR 0.92 MG/DL (0.55-1.30); GLOMERULAR FILTRATION RATE > 60.0 (>60); GLUCOSE, FASTING 75 MG/DL (60-100); POTASSIUM SERUM 4.3 MMOL/L (3.5-5.1); SODIUM LEVEL 139 MMOL/L (136-145); TOTAL PROTEIN 7.1 G/DL (5.7-8.2)
[2023-02-04 11:11] LABS: HCG, SERUM QUALITATIVE NEGATIVE (NEGATIVE)
[2023-02-04 11:26] LABS: HIV 1&2 SCREEN NEGATIVE (NEGATIVE)
[2023-02-04 11:34] LABS: HEPATITIS C VIRUS ABY INDEX 0.15 INDEX (<0.8)
== END ==
LOC: M LAB 09:40
PROVIDERS: ATTEND Family Medicine
DX: F31.9 Bipolar disorder, unspecified (principal); Z20.9 Contact with and (suspected) exposure to unspecified communicable disease; F50.2 Bulimia nervosa

== ENCOUNTER 2023-03-04 15:09 | Emergency (ER) | payer MEDICARE, MEDICAID ==
[~2023-03-04] VITALS: Ht 162.6 cm; Wt 61.7 kg
[2023-03-04 15:09] VITALS: BP 129/75; TEMP 98.2; O2SAT 96
== END 2023-03-04 17:56 | disposition left against medical advice (07) ==
LOC: M ED 15:09
DX: Z53.21 Procedure and treatment not carried out due to patient leaving prior to being seen by health care provider (principal)

== ENCOUNTER 2023-04-02 13:47 | Inpatient (IN) | payer MEDICARE, MEDICAID ==
[~2023-04-02] VITALS: Ht 162.6 cm; Wt 66.8 kg
[2023-04-02 16:24] LABS: AMPHETAMINES LEVEL URINE NEGATIVE (NEGATIVE); BARBITURATES URINE NEGATIVE (NEGATIVE); BENZODIAZEPINES URINE NEGATIVE (NEGATIVE); COCAINE METABOLITE URINE NEGATIVE (NEGATIVE); METHADONE URINE NEGATIVE (NEGATIVE); OPIATES URINE NEGATIVE (NEGATIVE)
[2023-04-02 16:25] LABS: CANNABINOIDS URINE NEGATIVE (NEGATIVE); PHENCYCLIDINE URINE NEGATIVE (NEGATIVE)
[2023-04-02 17:04] LABS: HEMATOCRIT 33.8 % (36.0-47.0); HEMOGLOBIN 11.3 g/dl (12.0-15.5); MEAN CORPUSCULAR HEMOGLOBIN 31.7 pg (27.0-33.0); MEAN CORPUSCULAR HGB CONC 33.4 g/dl (32.0-36.5); MEAN CORPUSCULAR VOLUME 94.9 fl (80.0-96.0); PLATELET COUNT, AUTOMATED 232 10^3/uL (150-450); RED BLOOD COUNT 3.56 10^6/uL (4.00-5.40); WHITE BLOOD COUNT 8.1 10^3/uL (4.0-10.0)
[2023-04-02 17:24] LABS: ETHYL ALCOHOL (ETHANOL) 0.003 % (0.000-0.010)
[2023-04-02 17:26] LABS: ALBUMIN 3.8 G/DL (3.2-5.2); ALKALINE PHOSPHATASE 108 U/L (46-116); ALT/SGPT 26 U/L (7.0-40); AST/SGOT 19 U/L (<34); BILIRUBIN,DIRECT < 0.1 MG/DL (<0.4); BILIRUBIN,TOTAL 0.2 MG/DL (0.3-1.2); BLOOD UREA NITROGEN 13 MG/DL (9-23); CALCIUM LEVEL 9.1 MG/DL (8.5-10.1); CARBON DIOXIDE LEVEL 29 MMOL/L (20-31); CHLORIDE LEVEL 109 MMOL/L (98-107); CREATININE FOR GFR 0.95 MG/DL (0.55-1.30); GLOMERULAR FILTRATION RATE > 60.0 (>60); GLUCOSE, FASTING 102 MG/DL (60-100); HCG, SERUM QUALITATIVE NEGATIVE (NEGATIVE); POTASSIUM SERUM 4.1 MMOL/L (3.5-5.1); SALICYLATE LEVEL < 3.0 MG/DL (<30); SODIUM LEVEL 145 MMOL/L (136-145); TOTAL PROTEIN 7.2 G/DL (5.7-8.2)
[2023-04-02 17:27] LABS: THYROID STIMULATING HORMONE 2.517 uIU/ML (0.55-4.78)
[2023-04-02] MEDS ORDERED: MAALOX 30 ML SUSP *UDC PO PRN (18:40)
[2023-04-02] MEDS ORDERED: MOM 30ML SUSPENSION UDC PO PRN (18:40)
[2023-04-02] MEDS ORDERED: OLANZapine ORAL DISINTEGRATING TAB 5MG PO PRN (18:40)
[2023-04-02] MEDS ORDERED: IBUPROFEN 400MG TAB PO PRN (18:40)
[2023-04-02] MEDS ORDERED: ACETAMINOPHEN TAB 650MG DOSE (2X325MG) PO PRN (18:40)
[2023-04-02] MEDS ORDERED: diphenhydrAMINE 25MG CAP PO PRN (18:40)
[2023-04-02] MEDS ORDERED: OLANZapine 2.5MG TABLET PO SCH (21:00)
[2023-04-02] MEDS ORDERED: SENNA 8.6 MG TAB (SENOKOT) PO SCH (21:00)
[2023-04-03] MEDS: lamoTRIgine 100MG TAB PO SCH ×2 (00:02→08:20)
[2023-04-03 02:05] VITALS: BP 132/88; TEMP 97.8; O2SAT 99
[2023-04-03] MEDS ORDERED: MULTTAB20 PO (06:42)
[2023-04-03] MEDS ORDERED: LAMO150T3 PO (06:42)
[2023-04-03] MEDS ORDERED: VITMTA PO (06:42)
[2023-04-03] MEDS ORDERED: OLAN2.5T25 PO (06:42)
[2023-04-03] MEDS ORDERED: HOME MED LIST COMPLETE! XX SCH (06:45)
[2023-04-03] MEDS ORDERED: TRANYLCYPROMINE SULFATE 10 MG PO SCH ×2 (09:00→21:00)
== END 2023-04-03 11:15 | disposition home or self-care (01) | DRG 885 ==
LOC: M ED 13:47 → M ED INP 18:40 → M PSY 04-03 01:07
PROVIDERS: ADMIT Student in an Organized Health Care Education/Training Program; ATTEND Student in an Organized Health Care Education/Training Program
DX: F31.9 Bipolar disorder, unspecified (principal); Z59.00 Homelessness unspecified; Z88.5 Allergy status to narcotic agent; Z88.8 Allergy status to other drugs, medicaments and biological substances; Z79.899 Other long term (current) drug therapy; M54.59 Other low back pain; K21.9 Gastro-esophageal reflux disease without esophagitis; D64.9 Anemia, unspecified

== ENCOUNTER → 2023-07-10 | Outpatient (CLI) | payer MEDICARE, MEDICAID ==
[~2023-07-10] MED LIST changes: -DESI150T PO; -FLUT50SP17; -FLUT50SP17 NARES; +FLUTISP; +FLUTISP NARES; -KLON0.5T PO; +KLON0.5T8 PO; +MULTTAB20 PO; +VITMTA PO; +[UNRECOGNIZED DRUG - CODE] PO
[2023-07-10 08:33] LABS: BASO # 0.1 10^3/uL (0.0-0.2); EOS # 0.2 10^3/uL (0.0-0.5); EOS % 3.9 % (0.0-3.0); HEMATOCRIT 36.6 % (36.0-47.0); LYMPH % 48.3 % (24.0-44.0); MEAN CORPUSCULAR HEMOGLOBIN 30.7 pg (27.0-33.0); MEAN CORPUSCULAR HGB CONC 32.8 g/dl (32.0-36.5); MEAN CORPUSCULAR VOLUME 93.6 fl (80.0-96.0); MONO # 0.7 10^3/uL (0.0-0.8); MONO % 11.6 % (2.0-8.0); NEUTROPHILS # 2.2 10^3/uL (1.5-8.5); PLATELET COUNT, AUTOMATED 212 10^3/uL (150-450); RED BLOOD COUNT 3.91 10^6/uL (4.00-5.40); WHITE BLOOD COUNT 6.2 10^3/uL (4.0-10.0)
[2023-07-10 08:56] LABS: C REACTIVE PROTEIN QUANTITATIV < 0.40 MG/DL (<1.0)
[2023-07-10 08:57] LABS: THYROID STIMULATING HORMONE 3.013 uIU/ML (0.55-4.78)
[2023-07-10 08:58] LABS: ALBUMIN 4.3 G/DL (3.2-5.2); ALKALINE PHOSPHATASE 57 U/L (46-116); ALT/SGPT 19 U/L (7.0-40); AST/SGOT 14 U/L (<34); BILIRUBIN,TOTAL 0.4 MG/DL (0.3-1.2); BLOOD UREA NITROGEN 15 MG/DL (9-23); CALCIUM LEVEL 9.2 MG/DL (8.5-10.1); CARBON DIOXIDE LEVEL 28 MMOL/L (20-31); CHLORIDE LEVEL 106 MMOL/L (98-107); CREATININE FOR GFR 1.17 MG/DL (0.55-1.30); FREE T4 0.99 NG/DL (0.89-1.76); GLOMERULAR FILTRATION RATE 56.7 (>60); GLUCOSE, FASTING 78 MG/DL (60-100); POTASSIUM SERUM 4.3 MMOL/L (3.5-5.1); SODIUM LEVEL 138 MMOL/L (136-145); TOTAL PROTEIN 7.5 G/DL (5.7-8.2)
[2023-07-10 09:01] LABS: ERYTHROCYTE SEDIMENTATION RATE 5 mm/hr (0-20)
== END ==
LOC: M LAB 07:03
PROVIDERS: ATTEND Family Medicine
DX: R53.82 Chronic fatigue, unspecified (principal); Z79.899 Other long term (current) drug therapy; F50.9 Eating disorder, unspecified

== ENCOUNTER → 2023-07-10 | Outpatient (CLI) | payer MEDICARE, MEDICAID ==
[~2023-07-10] MED LIST changes: +DESI150T PO; +KLON0.5T PO; -KLON0.5T8 PO; -[UNRECOGNIZED DRUG - CODE] PO
[2023-07-10 08:33] LABS: BASO # 0.1 10^3/uL (0.0-0.2); BASO % 0.8 % (0.0-1.0); EOS # 0.2 10^3/uL (0.0-0.5); EOS % 3.7 % (0.0-3.0); HEMATOCRIT 36.3 % (36.0-47.0); LYMPH % 48.5 % (24.0-44.0); MEAN CORPUSCULAR HEMOGLOBIN 30.9 pg (27.0-33.0); MEAN CORPUSCULAR HGB CONC 33.1 g/dl (32.0-36.5); MEAN CORPUSCULAR VOLUME 93.6 fl (80.0-96.0); MONO # 0.7 10^3/uL (0.0-0.8); MONO % 10.5 % (2.0-8.0); NEUTROPHILS # 2.3 10^3/uL (1.5-8.5); NEUTROPHILS % 36.5 % (36.0-66.0); PLATELET COUNT, AUTOMATED 212 10^3/uL (150-450); RED BLOOD COUNT 3.88 10^6/uL (4.00-5.40); WHITE BLOOD COUNT 6.2 10^3/uL (4.0-10.0)
[2023-07-10 08:54] LABS: ALBUMIN 4.3 G/DL (3.2-5.2); BILIRUBIN,TOTAL 0.4 MG/DL (0.3-1.2); CALCIUM LEVEL 9.3 MG/DL (8.5-10.1); CHOLESTEROL RISK RATIO 3.91 (<5); CREATININE FOR GFR 1.18 MG/DL (0.55-1.30); GLOMERULAR FILTRATION RATE 56.2 (>60); POTASSIUM SERUM 4.2 MMOL/L (3.5-5.1); TOTAL PROTEIN 7.5 G/DL (5.7-8.2)
== END ==
LOC: M LAB 07:06
PROVIDERS: ATTEND Student in an Organized Health Care Education/Training Program
DX: F50.9 Eating disorder, unspecified (principal)

== ENCOUNTER → 2023-11-05 | Outpatient (REF) | payer MEDICARE, MEDICAID ==
[~2023-11-05] MED LIST changes: -DESI150T PO; -KLON0.5T PO; +KLON0.5T8 PO; +[UNRECOGNIZED DRUG - CODE] PO
[2023-11-05 18:39] LABS: ALBUMIN 4.1 G/DL (3.2-5.2); BILIRUBIN,TOTAL 0.5 MG/DL (0.3-1.2); CALCIUM LEVEL 9.1 MG/DL (8.5-10.1); CHOLESTEROL RISK RATIO 4.52 (<5); CREATININE FOR GFR 1.15 MG/DL (0.55-1.30); GLOMERULAR FILTRATION RATE 57.9 (>60); HDL CHOLESTEROL 52.2 MG/DL (>40); NON-HDL-C 183.8 MG/DL; PHOSPHORUS LEVEL 3.8 MG/DL (2.5-4.9); POTASSIUM SERUM 4.3 MMOL/L (3.5-5.1); PTH INTACT 63.3 PG/ML (18.5-88.0); TOTAL PROTEIN 7.1 G/DL (5.7-8.2)
[2023-11-05 18:41] LABS: CREATININE, URINE 31.4 MG/DL; MALB URINE SIEMENS < 3.0 MG/L; MAU/CREAT RATIO 9.5 MCG/MG (0.0-30.0)
[2023-11-05 18:42] LABS: HEMOGLOBIN A1c 4.7 % (4.0-6.0); TOTAL 25(OH) VITAMIN D 42.6 NG/ML (20.0-100.0)
== END ==
LOC: M SFHCCLAY 12:15
PROVIDERS: ATTEND Family Medicine
DX: F50.2 Bulimia nervosa (principal); Z79.899 Other long term (current) drug therapy

== ENCOUNTER → 2024-03-12 | Outpatient (REF) | payer MEDICARE, MEDICAID ==
[~2024-03-12] MED LIST changes: +GABA-1172 PO; -GABA-282 PO; +LITH450T11 PO; -LITH45TASA PO; -OLAN15TA13 PO; +OLAN15TA69 PO; -OLAN2.5T25 PO; +OLAN2.5T53 PO; -SENN-111 PO; +SENN-165 PO; +SENN-187 PO; -SENN-83 PO
[2024-03-12 18:09] LABS: BASO # 0.1 10^3/uL (0.0-0.2); BASO % 0.8 % (0.0-1.0); EOS # 0.2 10^3/uL (0.0-0.5); EOS % 2.9 % (0.0-3.0); HEMATOCRIT 35.1 % (36.0-47.0); HEMOGLOBIN 11.5 g/dl (12.0-15.5); LYMPH # 3.1 10^3/uL (1.5-5.0); LYMPH % 43.1 % (24.0-44.0); MEAN CORPUSCULAR HEMOGLOBIN 31.4 pg (27.0-33.0); MEAN CORPUSCULAR HGB CONC 32.8 g/dl (32.0-36.5); MEAN CORPUSCULAR VOLUME 95.9 fl (80.0-96.0); MONO # 0.7 10^3/uL (0.0-0.8); NEUTROPHILS # 3.2 10^3/uL (1.5-8.5); NEUTROPHILS % 44.1 % (36.0-66.0); PLATELET COUNT, AUTOMATED 200 10^3/uL (150-450); RED BLOOD COUNT 3.66 10^6/uL (4.00-5.40); WHITE BLOOD COUNT 7.2 10^3/uL (4.0-10.0)
[2024-03-12 18:16] LABS: ALBUMIN 4.3 G/DL (3.2-5.2); ALKALINE PHOSPHATASE 61 U/L (46-116); ALT/SGPT 21 U/L (7.0-40); AST/SGOT 11 U/L (<34); BILIRUBIN,TOTAL 0.5 MG/DL (0.3-1.2); BLOOD UREA NITROGEN 14 MG/DL (9-23); CARBON DIOXIDE LEVEL 30 MMOL/L (20-31); CHLORIDE LEVEL 105 MMOL/L (98-107); CREATININE FOR GFR 1.01 MG/DL (0.55-1.30); FREE T4 0.94 NG/DL (0.89-1.76); GLOMERULAR FILTRATION RATE > 60.0 (>60); GLUCOSE, FASTING 79 MG/DL (60-100); POTASSIUM SERUM 4.3 MMOL/L (3.5-5.1); SODIUM LEVEL 138 MMOL/L (136-145); THYROID STIMULATING HORMONE 1.575 uIU/ML (0.55-4.78); TOTAL PROTEIN 7.4 G/DL (5.7-8.2)
[2024-03-17 17:58] LABS: LYME TOTAL ANTIBODY CIA 1.12 Index (<=0.90)
[2024-03-17 21:12] LABS: LYME AB IGG BY CIA 4.01 Index (<=0.90); LYME AB IGM BY CIA 2.41 Index (<=0.90)
== END ==
LOC: M SFHCCLAY 12:14
PROVIDERS: ATTEND Family Medicine
DX: R53.82 Chronic fatigue, unspecified (principal); Z86.19 Personal history of other infectious and parasitic diseases; F50.20 Bulimia nervosa, unspecified

== ENCOUNTER → 2024-03-18 | Outpatient (CLI) | payer MEDICARE, MEDICAID ==
[2024-03-23 00:52] LABS: IgG P18 AB NON-REACTIVE; IgG P23 AB NON-REACTIVE; IgG P28 AB NON-REACTIVE; IgG P30 AB NON-REACTIVE; IgG P39 AB REACTIVE; IgG P41 AB REACTIVE; IgG P45 AB NON-REACTIVE; IgG P58 AB REACTIVE; IgG P66 AB NON-REACTIVE; IgG P93 AB NON-REACTIVE; IgM P23 AB REACTIVE; IgM P39 AB NON-REACTIVE; IgM P41 AB NON-REACTIVE; LYME IgG WB INTERPRETATION NEGATIVE (NEGATIVE); LYME IgM WB INTERPRETATION NEGATIVE (NEGATIVE)
== END ==
LOC: M LAB 13:55
PROVIDERS: ATTEND Family Medicine
DX: R76.8 Other specified abnormal immunological findings in serum (principal)

== ENCOUNTER → 2024-09-01 | Outpatient (REF) | payer MEDICARE, MEDICAID ==
[~2024-09-01] MED LIST changes: +DESI25TA PO; -DESI25TA59 PO
[2024-09-01 15:23] LABS: THYROID STIMULATING HORMONE 3.287 uIU/ML (0.55-4.78)
[2024-09-01 15:24] LABS: ALBUMIN 4.5 G/DL (3.2-5.2); ALKALINE PHOSPHATASE 57 U/L (35-104); ALT/SGPT 23 U/L (7.0-40); AST/SGOT 17 U/L (<34); BILIRUBIN,TOTAL 0.7 MG/DL (0.3-1.2); BLOOD UREA NITROGEN 11 MG/DL (9-23); CALCIUM LEVEL 9.6 MG/DL (8.5-10.1); CARBON DIOXIDE LEVEL 28 MMOL/L (20-31); CHLORIDE LEVEL 102 MMOL/L (98-107); CHOLESTEROL LEVEL 205 MG/DL (<200); CHOLESTEROL RISK RATIO 3.76 (<5); CREATININE FOR GFR 1.05 MG/DL (0.55-1.30); GLOMERULAR FILTRATION RATE > 60.0 (>60); GLUCOSE, FASTING 83 MG/DL (60-100); HDL CHOLESTEROL 54.5 MG/DL (>40); LDL CHOLESTEROL 138.7 MG/DL (<100); NON-HDL-C 150.5 MG/DL; POTASSIUM SERUM 4.5 MMOL/L (3.5-5.1); SODIUM LEVEL 137 MMOL/L (136-145); TOTAL 25(OH) VITAMIN D 44.1 NG/ML (20.0-100.0); TOTAL PROTEIN 7.9 G/DL (5.7-8.2); TRIGLYCERIDES LEVEL 59 MG/DL (<150)
[2024-09-01 15:48] LABS: HIV 1&2 SCREEN NEGATIVE (NEGATIVE)
[2024-09-01 15:50] LABS: HEMOGLOBIN A1c 4.4 % (4.0-6.0)
[2024-09-01 15:56] LABS: HEPATITIS C VIRUS ABY INDEX 0.04 INDEX (<0.8)
== END ==
LOC: M LAB REF 12:35
PROVIDERS: ATTEND Physician Assistant
DX: Z13.220 Encounter for screening for lipoid disorders (principal); E55.9 Vitamin D deficiency, unspecified; K59.09 Other constipation; K21.9 Gastro-esophageal reflux disease without esophagitis; Z79.899 Other long term (current) drug therapy; Z11.3 Encounter for screening for infections with a predominantly sexual mode of transmission; Z72.89 Other problems related to lifestyle

== ENCOUNTER → 2025-02-09 | Outpatient (REF) | payer MEDICARE, MEDICAID ==
[~2025-02-09] MED LIST changes: +BUPR150T15 PO; -BUPR1TAB53 PO; -DEPA250T32 PO; +DIVA-65 PO; -IBUP-1022 PO; +IBUP600T42 PO; +LAMO-18 PO; -LAMO25TA4 PO; -LITH450T11 PO; +LITH450T17 PO; +LORA-1164 PO; -LORA-622 PO; +OLAN7.5T38 PO; -OLAN7.5T8 PO; -VITA500T17 PO; +VITA500T8 PO
[2025-02-09 14:55] LABS: APPEARANCE, URINE HAZY (CLEAR); BACTERIA, URINE AUTO NEGATIVE (NEGATIVE); BILIRUBIN, URINE AUTO NEGATIVE (NEGATIVE); BLOOD, URINE BLOOD NEGATIVE (NEGATIVE); GLUCOSE, URINE (UA) AUTO NEGATIVE (NEGATIVE); KETONE, URINE AUTO NEGATIVE (NEGATIVE); LEUKOCYTE ESTERASE, URINE AUTO NEGATIVE (NEGATIVE); NITRITE, URINE AUTO NEGATIVE (NEGATIVE); PROTEIN, URINE AUTO NEGATIVE (NEGATIVE); RBC, URINE AUTO 0 /HPF (0-3); SPECIFIC GRAVITY URINE AUTO 1.003 (1.002-1.035); SQUAMOUS EPITHELIAL CELL UR AU 0 /HPF (0-6); UROBILINOGEN, URINE AUTO 0.2 mg/dL (0.0-2.0); WBC, URINE AUTO 2 /HPF (0-3)
[2025-02-09 17:21] LABS: CALCIUM LEVEL 9.7 MG/DL (8.5-10.1); CARBON DIOXIDE LEVEL 30.0 MMOL/L (20-31); CHLORIDE LEVEL 100.0 MMOL/L (98-107); CREATININE FOR GFR 1.15 MG/DL (0.55-1.30); GLOMERULAR FILTRATION RATE 63.7 (>60); POTASSIUM SERUM 4.8 MMOL/L (3.5-5.1); SODIUM LEVEL 138.0 MMOL/L (136-145)
[2025-02-09 17:30] LABS: ESTIMATED AVERAGE GLUCOSE 91.0 MG/DL (60-110)
== END ==
LOC: M LAB REF 14:19
PROVIDERS: ATTEND Physician Assistant
DX: N39.3 Stress incontinence (female) (male) (principal); Z79.899 Other long term (current) drug therapy

== ENCOUNTER 2025-04-01 15:57 | Inpatient (IN) | payer MEDICARE, MEDICAID ==
[~2025-04-01] VITALS: Ht 162.6 cm; Wt 55.9 kg
[2025-04-01] MEDS: NS (Normal Saline) 0.9% 1,000 ML IV ONE ×2 (16:10→19:30)
[2025-04-01 16:44] LABS: BASO # 0.1 10^3/uL (0.0-0.2); BASO % 0.5 % (0.0-1.0); EOS # 0.6 10^3/uL (0.0-0.5); EOS % 5.9 % (0.0-3.0); LYMPH # 1.6 10^3/uL (1.5-5.0); LYMPH % 16.9 % (24.0-44.0); MONO # 0.8 10^3/uL (0.0-0.8); MONO % 8.5 % (2.0-8.0); NEUTROPHILS # 6.4 10^3/uL (1.5-8.5); NEUTROPHILS % 68.0 % (36.0-66.0); PLATELET COUNT, AUTOMATED 316 10^3/uL (150-450)
[2025-04-01 17:03] LABS: ETHYL ALCOHOL (ETHANOL) < 0.003 % (0.000-0.010)
[2025-04-01 17:05] LABS: ALT/SGPT 47 U/L (7.0-40); AST/SGOT 48 U/L (<34); CALCIUM LEVEL 9.1 MG/DL (8.5-10.1); CARBON DIOXIDE LEVEL 30 MMOL/L (20-31); CHLORIDE LEVEL 103 MMOL/L (98-107); CREATININE FOR GFR 0.94 MG/DL (0.55-1.30); GLOMERULAR FILTRATION RATE 81.2 (>60); HCG, SERUM QUALITATIVE NEGATIVE (NEGATIVE); POTASSIUM SERUM 4.1 MMOL/L (3.5-5.1); SALICYLATE LEVEL < 3.0 MG/DL (<30); SODIUM LEVEL 143 MMOL/L (136-145)
[2025-04-01 17:14] LABS: AMPHETAMINES LEVEL URINE NEGATIVE (NEGATIVE); BARBITURATES URINE NEGATIVE (NEGATIVE); BENZODIAZEPINES URINE NEGATIVE (NEGATIVE); CANNABINOIDS URINE NEGATIVE (NEGATIVE); COCAINE METABOLITE URINE NEGATIVE (NEGATIVE); METHADONE URINE NEGATIVE (NEGATIVE); OPIATES URINE NEGATIVE (NEGATIVE); PHENCYCLIDINE URINE NEGATIVE (NEGATIVE)
[2025-04-01 17:16] LABS: CPK CREATINE PHOSPHOKINASE 1170 U/L (34-145)
[2025-04-02] MEDS ORDERED: ACETAMINOPHEN 325 MG TAB PO PRN (01:50)
[2025-04-02] MEDS ORDERED: MAALOX 30 ML SUSP *UDC PO PRN (01:50)
[2025-04-02] MEDS ORDERED: MOM 30 ML SUSPENSION UDC PO PRN (01:50)
[2025-04-02 03:39] VITALS: BP 148/86; TEMP 97.3; O2SAT 100
[2025-04-02] MEDS ORDERED: SENN-188 PO ×2 (04:51)
[2025-04-02] MEDS ORDERED: ACET-683 PO (04:54)
[2025-04-02] MEDS: HALOPERIDOL 5 MG TAB PO PRN (15:44)
[2025-04-02 16:01] VITALS: BP 123/84; TEMP 98.3; O2SAT 99
[2025-04-02] MEDS: lamoTRIgine 25 MG TAB PO SCH (20:05)
[2025-04-02] MEDS: LORazepam 1 MG TAB PO PRN (20:45)
[2025-04-03 06:38] VITALS: BP 130/68; TEMP 97.6; O2SAT 100
[2025-04-03] MEDS: NICOTINE 14 MG/24 HR TRANSDERMAL TD SCH (14:58)
[2025-04-03] MEDS: SENNA 8.6 MG TAB PO SCH (14:58)
[2025-04-03 16:02] VITALS: BP 131/84; TEMP 97.5; O2SAT 98
[2025-04-04 06:56] VITALS: BP 132/85; TEMP 97.8; O2SAT 100
[2025-04-04] MEDS ORDERED: PILL CUTTER 1 EACH XX PRN (12:10)
[2025-04-04 15:21] VITALS: BP 133/89; TEMP 97; O2SAT 100
[2025-04-05 06:20] VITALS: BP 127/88; TEMP 98.2; O2SAT 100
[2025-04-05 18:35] VITALS: TEMP 97.7; O2SAT 100
[2025-04-05] MEDS: ARIPiprazole 15 MG TAB PO SCH (20:10)
[2025-04-06] MEDS: IBUPROFEN 400 MG TAB PO PRN (17:01)
[2025-04-06 18:28] VITALS: BP 148/92; TEMP 98.1; O2SAT 99
[2025-04-07 07:03] VITALS: BP 130/85; TEMP 97.9; O2SAT 99
[2025-04-07 15:22] VITALS: BP 153/95; TEMP 98.1; O2SAT 100
[2025-04-09 06:32] VITALS: BP 144/78; TEMP 97.8; O2SAT 100
[2025-04-09 15:45] VITALS: BP 135/87; TEMP 98.6; O2SAT 100
[2025-04-10 06:26] VITALS: BP 123/70; TEMP 97.2; O2SAT 98
[2025-04-10 18:40] VITALS: BP 126/74; TEMP 98.3; O2SAT 99
[2025-04-10 21:04] VITALS: BP 126/74; TEMP 98.3; O2SAT 99
[2025-04-11 06:44] VITALS: BP 112/64; TEMP 97.5; O2SAT 99
[2025-04-11 16:23] VITALS: BP 132/88; TEMP 97.8; O2SAT 98
[2025-04-11 21:03] VITALS: BP 132/88; TEMP 97.8; O2SAT 98
[2025-04-12 06:43] VITALS: BP 102/68; TEMP 97.4; O2SAT 99
[2025-04-12 17:06] VITALS: BP 120/75; TEMP 99.2; O2SAT 100
[2025-04-12] MEDS: lamoTRIgine 100 MG TAB PO SCH (20:34)
[2025-04-12] MEDS ORDERED: lamoTRIgine 25 MG TAB PO SCH (21:00)
[2025-04-13 06:30] VITALS: BP 107/59; TEMP 98.5; O2SAT 98
[2025-04-13] MEDS ORDERED: LAMO100T80 PO (09:30)
[2025-04-13] MEDS ORDERED: ABIL10TA9 PO (09:30)
[2025-04-13] MEDS ORDERED: TRAN10TA PO (09:30)
== END 2025-04-13 11:00 | disposition home or self-care (01) | DRG 885 ==
LOC: M ED 15:57 → M ED INP 04-02 01:47 → M PSY 04-02 03:34
PROVIDERS: ADMIT Psychiatry & Neurology Neurology; ATTEND Psychiatry & Neurology Neurology
DX: F31.64 Bipolar disorder, current episode mixed, severe, with psychotic features (principal); R45.851 Suicidal ideations; Z59.00 Homelessness unspecified; F41.0 Panic disorder [episodic paroxysmal anxiety]; F60.3 Borderline personality disorder; Z88.5 Allergy status to narcotic agent; Z88.8 Allergy status to other drugs, medicaments and biological substances; Z79.899 Other long term (current) drug therapy; Z91.148 Patient's other noncompliance with medication regimen for other reason; Z86.73 Personal history of transient ischemic attack (TIA), and cerebral infarction without residual deficits; Z86.16 Personal history of COVID-19